=== PATIENT | male | born 1955 | race Caucasian/White ===

== ENCOUNTER 2020-03-23 08:17 | Inpatient (IN) | payer MEDICARE, MEDICAID, SELFPAY ==
[2020-03-23] VITALS (8 sets, daily range): BP systolic 101–141; BP diastolic 65–86; PULSE 77–96; RESP 15–19; TEMP 36.6–37.4; O2SAT 95–98; BMI 30.8
--- NOTE | 2020-03-23 08:23 | ED.GENADULT ---
HPI - General Adult General Chief complaint: General Medical Stated complaint: MUSCLE SPASMS UPPER BODY Time Seen by Provider: 03/23/20 08:22 Source: patient and EMS Mode of arrival: EMS Limitations: no limitations History of Present Illness MD complaint: spasms of chest and UE Onset (ago): hour(s) (2) Location: chest Radiation: non-radiation Severity: moderate Quality: other (spasms) Pain Consistency: constant Relieving factors: none Exacerbating factors: none Associated symptoms: denies other symptoms Treatments prior to arrival: other (tried diazepam without relief, had been on baclofen that worked for a while) Related Data Allergies Allergy/AdvReac Type Severity Reaction Status Date / Time ofloxacin [From FLOXIN] Allergy Intermediate UPSET Verified 03/23/20 08:54 STOMACH dicloxacillin [From DYNAPEN] Allergy Unknown UNKNOWN Verified 03/23/20 08:54 penicillin V Allergy Unknown Abdominal Verified 03/23/20 08:54 Pain Review of Systems Review of Systems: Constitutional : No Weight loss, No Fever, No Chills, No Fatigue, No Malaise ENT/Mouth : No sore throat, No Rhinorrhea Eyes: No Eye Pain, No Swelling, No Redness Cardiovascular : No Chest Pain, No SOB Respiratory : No Cough, No Sputum, No Wheezing Gastrointestinal : No Nausea, No Vomiting, No Diarrhea, No abdominal Pain Genitourinary : No Dysuria, No hematuria Musculoskeletal : No joint pain, positive Myalgias, No Joint Swelling Skin : No Skin Lesions, No rash Neuro : No Weakness, No Numbness, No Dizziness, No Headache Psych : No Anxiety/Panic, No Depression All other systems reviewed and are negative [facility] Past Medical History Medical History Atrial fibrillation Hernia Spasms of the hands or feet Spinal cord injury Surgical History H/O thyroidectomy Social History Social History (Updated 03/23/20 @ 08:25 by Chantel Wilde DO) Alcohol intake: never Smoking Status: Former smoker Smoked in Last 30 Days: No Use of substances other than those prescribed or required for medical reasons: No Advance Directives: No Advance Directives Information Provided: No Physical Exam Vital Signs: Vital Signs: Vital Signs Temp Pulse Resp BP Pulse Ox 03/23/20 14:00 82 16 130/65 96 03/23/20 11:32 84 15 122/86 95 03/23/20 10:28 16 111/84 97 03/23/20 10:15 99.4 F 03/23/20 08:23 98.1 F 86 18 136/83 97 Body Mass Index 30.8 Appearance: Alert. Oriented X3. No acute distress. slightly anxious, spasms of bilateral UE Eyes: Pupils equal, round and reactive to light. ENT: Pharynx normal. Neck: Normal inspection. Neck supple. CVS: Normal heart rate and rhythm. Pulses normal. Respiratory: No respiratory distress. Breath sounds normal. Abdomen: Soft and nontender. Skin: Skin warm and dry. Normal skin color. Normal skin turgor. Extremities: No lower extremity edema. No calf ttp Neuro: Oriented X 3. SCI C5-C6 spasms of UE Course Course Course Narrative: blood work ordered after family discussions, he also has a hernia that doesn't cause pain this is known by Dr. Hurd, I cannot reduce it but given his SCI might not have pain - once labs resulted will touch base with Dr. Hurd, Denzel is feeling much better after IV ativan Reevaluation(s) Reevaluation #1: Dr. Hurd no emergent surgery at this time, did cath him again 400cc urine, given repeat spasms prior to DC I have spoken to Elvia Murillo who will admit patinet Medical Decision Making MDM Narrative Medical decision making narrative: 64 yo male with hx of SCI C5-C6 hx of spasms, reports doing well until 6am today when spasms started took diazepam without relief and unable to catheterize himself, at this time, will obtain basic labs, catheterize him and give IV ativan Lab Data Result diagrams: 03/23/20 10:27 03/23/20 10:27 Labs: Lab Results 03/23/20 03/23/20 03/23/20 Range/Units 08:46 08:46 08:46 WBC 5.7 (4.8-10.8) X10*3/uL RBC 4.61 (4.60-5.80) X10*6/uL Hgb 13.9 L (14.0-18.0) g/dl Hct 42.2 (42-52) % MCV 91.5 (80-98) fL MCH 30.2 (27.0-33.0) pg MCHC 32.9 (31.0-36.0) g/dl RDW 14.7 (11.0-16.0) % Plt Count 187 (160-400) X10*3/uL MPV 10.0 (9.4-12.4) fL Immature Gran % (Auto) 0.4 (0.0-0.4) % Neut % (Auto) 73.0 (45-73) % Lymph % (Auto) 17.5 L (20-40) % [place] % (Auto) 7.8 (2-11) % Eos % (Auto) 0.9 (0-4) % Baso % (Auto) 0.4 (0-2) % Lymph # (Auto) 1.0 L (1.2-4.9) X10*3/uL [place] # (Auto) 0.4 (0.1-1.2) X10*3/uL Eos # (Auto) 0.1 (0.0-0.4) X10*3/uL Baso # (Auto) 0.0 (0.0-0.2) X10*3/uL Abs Immat Gran (auto) 0.02 (0.00-0.03) X10*3/uL Absolute Neuts (auto) 4.2 (2.0-8.3) X10*3/uL Absolute Nucleated RBC 0.000 (0.0-0.012) X10*3/uL Nucleated RBC % (auto) 0.0 (0.0-0.2) /100WBC PT 32.1 H (10.8-13.0) SEC INR 2.7 H (0.9-1.1) APTT 46.1 H (24.1-38.0) SEC Hold Blue Top Sodium 136 (135-145) mmol/L Potassium 4.6 (3.3-5.1) mmol/l Chloride 102 (96-108) mmol/L Carbon Dioxide 27 (22-29) mmol/L Anion Gap 12 (12-20) BUN 18 H (9-16) mg/dL Creatinine 0.76 (0.5-1.4) mg/dL Estim Creat Clear Calc 138.0 Estimated GFR > 60 Random Glucose 105 (60-115) mg/dL Calcium 8.6 (8.4-10.2) mg/dL Magnesium 1.9 (1.6-2.6) mg/dL Total Bilirubin (0.0-1.0) mg/dL Direct Bilirubin (0.0-0.5) mg/dL AST (5-37) U/L ALT (0-40) U/L Alkaline Phosphatase (39-117) U/L Total Protein (6.5-8.0) g/dL Albumin (3.5-5.0) g/dL Lipase 15 (8-78) U/L Urine Color Urine Appearance Urine pH (5.0-8.0) Ur Specific [place] (1.005-1.025) Urine Protein (NEG-TRACE) MG/DL Urine Glucose (UA) (NEG) MG/DL Urine Ketones (NEG) MG/DL Urine Blood (NEG) Urine Nitrite (NEG) Ur Leukocyte Esterase (NEG) Urine RBC (0) /HPF Urine WBC (0-4) /HPF Ur Squamous Epith Cells /LPF Urine Bacteria /LPF 03/23/20 03/23/20 03/23/20 Range/Units 10:27 10:27 10:27 WBC 5.8 (4.8-10.8) X10*3/uL RBC 4.52 L (4.60-5.80) X10*6/uL Hgb 13.7 L (14.0-18.0) g/dl Hct 41.6 L (42-52) % MCV 92.0 (80-98) fL MCH 30.3 (27.0-33.0) pg MCHC 32.9 (31.0-36.0) g/dl RDW 14.6 (11.0-16.0) % Plt Count 178 (160-400) X10*3/uL MPV 9.9 (9.4-12.4) fL Immature Gran % (Auto) 0.5 H (0.0-0.4) % Neut % (Auto) 67.8 (45-73) % Lymph % (Auto) 22.4 (20-40) % [place] % (Auto) 8.0 (2-11) % Eos % (Auto) 1.0 (0-4) % Baso % (Auto) 0.3 (0-2) % Lymph # (Auto) 1.3 (1.2-4.9) X10*3/uL [place] # (Auto) 0.5 (0.1-1.2) X10*3/uL Eos # (Auto) 0.1 (0.0-0.4) X10*3/uL Baso # (Auto) 0.0 (0.0-0.2) X10*3/uL Abs Immat Gran (auto) 0.03 (0.00-0.03) X10*3/uL Absolute Neuts (auto) 3.9 (2.0-8.3) X10*3/uL Absolute Nucleated RBC 0.000 (0.0-0.012) X10*3/uL Nucleated RBC % (auto) 0.0 (0.0-0.2) /100WBC PT (10.8-13.0) SEC INR (0.9-1.1) APTT (24.1-38.0) SEC Hold Blue Top SEE NOTE Sodium (135-145) mmol/L Potassium (3.3-5.1) mmol/l Chloride (96-108) mmol/L Carbon Dioxide (22-29) mmol/L Anion Gap (12-20) BUN (9-16) mg/dL Creatinine (0.5-1.4) mg/dL Estim Creat Clear Calc Estimated GFR Random Glucose (60-115) mg/dL Calcium (8.4-10.2) mg/dL Magnesium (1.6-2.6) mg/dL Total Bilirubin (0.0-1.0) mg/dL Direct Bilirubin (0.0-0.5) mg/dL AST (5-37) U/L ALT (0-40) U/L Alkaline Phosphatase (39-117) U/L Total Protein (6.5-8.0) g/dL Albumin (3.5-5.0) g/dL Lipase (8-78) U/L Urine Color YELLOW Urine Appearance CLEAR Urine pH 5.5 (5.0-8.0) Ur Specific [place] 1.025 (1.005-1.025) Urine Protein 1+ H (NEG-TRACE) MG/DL Urine Glucose (UA) NEG (NEG) MG/DL Urine Ketones NEG (NEG) MG/DL Urine Blood NEG (NEG) Urine Nitrite NEG (NEG) Ur Leukocyte Esterase NEG (NEG) Urine RBC 0-2 (0) /HPF Urine WBC 0-2 (0-4) /HPF Ur Squamous Epith Cells TRACE /LPF Urine Bacteria NONE /LPF 03/23/20 Range/Units 10:27 WBC (4.8-10.8) X10*3/uL RBC (4.60-5.80) X10*6/uL Hgb (14.0-18.0) g/dl Hct (42-52) % MCV (80-98) fL MCH (27.0-33.0) pg MCHC (31.0-36.0) g/dl RDW (11.0-16.0) % Plt Count (160-400) X10*3/uL MPV (9.4-12.4) fL Immature Gran % (Auto) (0.0-0.4) % Neut % (Auto) (45-73) % Lymph % (Auto) (20-40) % [place] % (Auto) (2-11) % Eos % (Auto) (0-4) % Baso % (Auto) (0-2) % Lymph # (Auto) (1.2-4.9) X10*3/uL [place] # (Auto) (0.1-1.2) X10*3/uL Eos # (Auto) (0.0-0.4) X10*3/uL Baso # (Auto) (0.0-0.2) X10*3/uL Abs Immat Gran (auto) (0.00-0.03) X10*3/uL Absolute Neuts (auto) (2.0-8.3) X10*3/uL Absolute Nucleated RBC (0.0-0.012) X10*3/uL Nucleated RBC % (auto) (0.0-0.2) /100WBC PT (10.8-13.0) SEC INR (0.9-1.1) APTT (24.1-38.0) SEC Hold Blue Top Sodium 138 (135-145) mmol/L Potassium 5.0 (3.3-5.1) mmol/l Chloride 102 (96-108) mmol/L Carbon Dioxide 28 (22-29) mmol/L Anion Gap 13 (12-20) BUN 18 H (9-16) mg/dL Creatinine 0.81 (0.5-1.4) mg/dL Estim Creat Clear Calc 129.4 Estimated GFR > 60 Random Glucose 87 (60-115) mg/dL Calcium 8.7 (8.4-10.2) mg/dL Magnesium 2.1 (1.6-2.6) mg/dL Total Bilirubin 0.7 (0.0-1.0) mg/dL Direct Bilirubin 0.3 (0.0-0.5) mg/dL AST 20 (5-37) U/L ALT 18 (0-40) U/L Alkaline Phosphatase 67 (39-117) U/L Total Protein 6.5 (6.5-8.0) g/dL Albumin 4.0 (3.5-5.0) g/dL Lipase 15 (8-78) U/L Urine Color Urine Appearance Urine pH (5.0-8.0) Ur Specific [place] (1.005-1.025) Urine Protein (NEG-TRACE) MG/DL Urine Glucose (UA) (NEG) MG/DL Urine Ketones (NEG) MG/DL Urine Blood (NEG) Urine Nitrite (NEG) Ur Leukocyte Esterase (NEG) Urine RBC (0) /HPF Urine WBC (0-4) /HPF Ur Squamous Epith Cells /LPF Urine Bacteria /LPF Discharge Plan Discharge Clinical Impression: Muscle spasm Patient Disposition: Admitted As Inpatient
[2020-03-23 08:53] LABS: MANUAL DIFF FLAG NO
[2020-03-23] MEDS: LORazepam 2 MG/ML VIAL 1 MG IVPUSH ×2 (08:57→18:19)
[2020-03-23 09:01] LABS: INTERNATIONAL NORM RATIO 2.7 (0.9-1.1); Prothrombin Time 32.1 SEC (10.8-13.0)
[2020-03-23 09:03] LABS: Partial Thromboplastin Time 46.1 SEC (24.1-38.0)
[2020-03-23 09:04] LABS: Basophils Percent Auto 0.4 % (0-2); Eosinophils Absolute Auto 0.1 X10*3/uL (0.0-0.4); Eosinophils Percent Auto 0.9 % (0-4); Hematocrit 42.2 % (42-52); Hemoglobin 13.9 g/dl (14.0-18.0); Imm Gran Abs Auto 0.02 X10*3/uL (0.00-0.03); Imm Gran Pct Auto 0.4 % (0.0-0.4); Lymphocytes Percent Auto 17.5 % (20-40); Mean Corpuscular HGB Conc 32.9 g/dl (31.0-36.0); Mean Corpuscular Hemoglobin 30.2 pg (27.0-33.0); Mean Corpuscular Volume 91.5 fL (80-98); Monocytes Absolute Auto 0.4 X10*3/uL (0.1-1.2); Monocytes Percent Auto 7.8 % (2-11); Neutrophils Absolute Auto 4.2 X10*3/uL (2.0-8.3); Platelet Count 187 X10*3/uL (160-400); Red Blood Count 4.61 X10*6/uL (4.60-5.80); Red Cell Distribution Width 14.7 % (11.0-16.0); White Blood Count 5.7 X10*3/uL (4.8-10.8)
[2020-03-23 09:17] LABS: Anion Gap 12 (12-20); Blood Urea Nitrogen 18 mg/dL (9-16); Calcium 8.6 mg/dL (8.4-10.2); Carbon Dioxide 27 mmol/L (22-29); Chloride 102 mmol/L (96-108); Estimated Glomerular Filt Rate > 60; Glucose Random 105 mg/dL (60-115); Lipase 15 U/L (8-78); Magnesium 1.9 mg/dL (1.6-2.6); Potassium 4.6 mmol/l (3.3-5.1); Sodium 136 mmol/L (135-145)
[2020-03-23] MEDS: 0.9 % Sodium Chloride 500 ML 1000 ML IV (10:23)
[2020-03-23 10:39] LABS: MANUAL DIFF FLAG NO
[2020-03-23] MEDS: LORazepam 2 MG/ML VIAL 0.5 MG IVPUSH ×2 (10:41→13:58)
[2020-03-23 10:49] LABS: Basophils Percent Auto 0.3 % (0-2); Eosinophils Absolute Auto 0.1 X10*3/uL (0.0-0.4); Hematocrit 41.6 % (42-52); Hemoglobin 13.7 g/dl (14.0-18.0); Imm Gran Abs Auto 0.03 X10*3/uL (0.00-0.03); Imm Gran Pct Auto 0.5 % (0.0-0.4); Lymphocytes Absolute Auto 1.3 X10*3/uL (1.2-4.9); Lymphocytes Percent Auto 22.4 % (20-40); Mean Corpuscular HGB Conc 32.9 g/dl (31.0-36.0); Mean Corpuscular Hemoglobin 30.3 pg (27.0-33.0); Mean Platelet Volume 9.9 fL (9.4-12.4); Monocytes Absolute Auto 0.5 X10*3/uL (0.1-1.2); Neutrophils Absolute Auto 3.9 X10*3/uL (2.0-8.3); Neutrophils Percent Auto 67.8 % (45-73); Platelet Count 178 X10*3/uL (160-400); Red Blood Count 4.52 X10*6/uL (4.60-5.80); Red Cell Distribution Width 14.6 % (11.0-16.0); White Blood Count 5.8 X10*3/uL (4.8-10.8)
[2020-03-23 11:06] LABS: Glucose Urine UA NEG (NEG); Leukocyte Esterase Urine NEG (NEG); Nitrite Urine NEG (NEG); PH 5.5 (5.0-8.0); Specific Gravity - Urine 1.025 (1.005-1.025); Urine Blood NEG (NEG); Urine Ketones NEG (NEG); Urine Protein 1+ MG/DL (NEG-TRACE)
[2020-03-23 11:09] LABS: Appearance Urine CLEAR; Color Urine YELLOW
[2020-03-23 11:11] LABS: Alanine Aminotransferase 18 U/L (0-40); Alkaline Phosphatase 67 U/L (39-117); Anion Gap 13 (12-20); Aspartate Amino Transferase 20 U/L (5-37); Bilirubin Direct 0.3 mg/dL (0.0-0.5); Bilirubin Total 0.7 mg/dL (0.0-1.0); Blood Urea Nitrogen 18 mg/dL (9-16); Calcium 8.7 mg/dL (8.4-10.2); Carbon Dioxide 28 mmol/L (22-29); Chloride 102 mmol/L (96-108); Creatinine Clr Calc Pharmacy 129.4; Estimated Glomerular Filt Rate > 60; Glucose Random 87 mg/dL (60-115); Lipase 15 U/L (8-78); Magnesium 2.1 mg/dL (1.6-2.6); Sodium 138 mmol/L (135-145); Total Protein 6.5 g/dL (6.5-8.0)
[2020-03-23 11:25] LABS: RBC Urine 0-2 /HPF (0); Squamous Epithelial Cell Urine TRACE /LPF; WBC Urine 0-2 /HPF (0-4)
--- NOTE | 2020-03-23 14:09 | PC.NURSE ---
pt continues to have intermittent muslce spasms. c/o need to urinate but unable to self-catheterize d/t spasms. catheterized for second time by dr. graff. medicated with 3rd dose iv ativan per emar.
--- NOTE | 2020-03-23 15:04 | P.HPIM_ITS ---
History of Present Illness Date of Service: 03/23/20 <Elvia Murillo NP - Last Filed: 03/24/20 09:28> Chief Complaint: hand spasms <Elvia Murillo NP - Last Filed: 03/24/20 09:28> 64-year-old man with history of 6 C5-C6 paraplegia presents with worsening, continuous spasms. He reports history of body spasms for many years. He normally takes baclofen and diazepam but have not seem to work as well more recently. He does have 2 aides that come into his home to assist in his care as he is wheelchair bound. He self catheterizes throughout the day also. He denied fever, chills, nausea, vomiting, diarrhea, recent cough, recent illness, sick contacts. In the ER his vital signs are stable. All his labs are within acceptable limits. He has no infectious source. Seems to be medications may not be working as well and he is getting more frequent spasms. He was given lorazepam which seemed to help in the ER. Will continue this. Will place patient on observation. <Elvia Murillo NP - Last Filed: 03/24/20 09:28> Review of Systems Review of Systems: Denies any recent fever chills or decrease in appetite respiratory denies any shortness of breath coverage production cardiovascular is adjustment of any PND or edema gastrointestinal denies any dysphagia abdominal pain nausea vomiting or diarrhea genitourinary Frequent catheterizations musculoskeletal frequent spasms neuropsych denies any weakness or seizures all other systems reviewed are negative <Elvia Murillo NP - Last Filed: 03/24/20 09:28> [facility] Medical History: Medical History (Updated 03/23/20 @ 16:46 by Alex Hurd MD) Atrial fibrillation Autonomic dysfunction Hernia Hypothyroidism Irreducible left inguinal hernia Spasms of the hands or feet Spinal cord injury <Elvia Murillo NP - Last Filed: 03/24/20 09:28> Functional capacity: wheelchair bound <Elvia Murillo NP - Last Filed: 03/24/20 09:28> Family History: Family History Sister Diabetes mellitus <Elvia Murillo NP - Last Filed: 03/24/20 09:28> Surgical History: Surgical History H/O hemorrhoidectomy H/O hernia repair H/O thyroidectomy S/P IVC filter S/P tendon repair <Elvia Murillo NP - Last Filed: 03/24/20 09:28> Social History: Social History Household Members: Family Housing: House Do you presently have visiting nurse or other home services: Yes Alcohol intake: never Smoking Status: Former smoker Smoked in Last 30 Days: No Use of substances other than those prescribed or required for medical reasons: No Currently Displaying Signs/Symptoms of Drug Intoxication Withdrawal: No Have you been hit, kicked, punched, or otherwise hurt by someone within the past year? If so, by whom?: No Do you feel safe in your current relationship?: No Is there a partner from a previous relationship who is making you feel unsafe now?: No Are you made to feel afraid or neglected: No Advance Directives: No Advance Directives Information Provided: No Advance Directives on File: No Do you have thoughts of harming others: None Do you have a plan to hurt others: No Plan Recently lost weight without trying: No service: No <Elvia Murillo NP - Last Filed: 03/24/20 09:28> Meds Allergies/Adverse reactions: Allergies Allergy/AdvReac Type Severity Reaction Status Date / Time dicloxacillin [From DYNAPEN] Allergy Unknown UNKNOWN Verified 03/23/20 08:54 ofloxacin [From FLOXIN] AdvReac Intermediate UPSET Verified 03/23/20 15:06 STOMACH penicillin V AdvReac Unknown Abdominal Verified 03/23/20 15:06 Pain <Elvia Murillo NP - Last Filed: 03/24/20 09:28> Home medications: Home Medications Medication Instructions Recorded Confirmed Type ascorbic acid (vitamin C) 500 mg PO BID 03/23/20 03/23/20 History baclofen 20 mg PO BID@16 03/23/20 03/23/20 History baclofen 40 mg PO BEDTIME 03/23/20 03/23/20 History calcitriol 0.25 mcg PO DAILY 03/23/20 03/23/20 History calcium carbonate [Calcium 500] 500 mg PO BID 03/23/20 03/23/20 History diazepam 2 mg PO QID PRN 03/23/20 03/23/20 History docusate sodium [Colace] 200 mg PO DAILY 03/23/20 03/23/20 History fludrocortisone 0.1 mg PO DAILY 03/23/20 03/23/20 History levothyroxine 100 mcg PO DAILY 03/23/20 03/23/20 History metoprolol tartrate 25 mg PO BID 03/23/20 03/23/20 History multivitamin 1 tab PO DAILY 03/23/20 03/23/20 History oxybutynin chloride 5 mg PO TID 03/23/20 03/23/20 History sennosides [senna] 17.2 mg PO BEDTIME 03/23/20 03/23/20 History warfarin 2 mg PO SUMOWEFR@18 03/23/20 03/23/20 History warfarin 3 mg PO TUTHSA@18 03/23/20 03/23/20 History <Elvia Murillo NP - Last Filed: 03/24/20 09:28> Physical Exam Vital Signs and Narrative: Vital Signs: Last Vital Signs Temp 99.4 F 03/23/20 10:15 Pulse 82 03/23/20 14:00 Resp 16 03/23/20 14:00 BP 130/65 03/23/20 14:00 Pulse Ox 96 03/23/20 14:00 Body Mass Index 30.8 <Elvia Murillo NP - Last Filed: 03/24/20 09:28> Appearing in no acute distress head is normocephalic atraumatic eyes pupils are PERRLA sclera is anicteric mouth throat mucous membranes are intact and moist neck is supple no lymphadenopathy, no JVD noted lung sounds are clear to auscultation heart regular rate rhythm, clear S1, S2 positive bowel sounds, abdomen is soft, nontender neuro paraplegia <Elvia Murillo NP - Last Filed: 03/24/20 09:28> Results Labs Labs: Laboratory Tests 03/23/20 03/23/20 03/23/20 08:46 08:46 08:46 WBC 5.7 RBC 4.61 Hgb 13.9 L Hct 42.2 MCV 91.5 MCH 30.2 MCHC 32.9 RDW 14.7 Plt Count 187 MPV 10.0 Immature Gran % (Auto) 0.4 Neut % (Auto) 73.0 Lymph % (Auto) 17.5 L [place] % (Auto) 7.8 Eos % (Auto) 0.9 Baso % (Auto) 0.4 Lymph # (Auto) 1.0 L [place] # (Auto) 0.4 Eos # (Auto) 0.1 Baso # (Auto) 0.0 Abs Immat Gran (auto) 0.02 Absolute Neuts (auto) 4.2 Absolute Nucleated RBC 0.000 Nucleated RBC % (auto) 0.0 PT 32.1 H INR 2.7 H APTT 46.1 H Hold Blue Top Sodium 136 Potassium 4.6 Chloride 102 Carbon Dioxide 27 Anion Gap 12 BUN 18 H Creatinine 0.76 Estim Creat Clear Calc 138.0 Estimated GFR > 60 Random Glucose 105 Calcium 8.6 Magnesium 1.9 Total Bilirubin Direct Bilirubin AST ALT Alkaline Phosphatase Total Protein Albumin Lipase 15 Urine Color Urine Appearance Urine pH Ur Specific [place] Urine Protein Urine Glucose (UA) Urine Ketones Urine Blood Urine Nitrite Ur Leukocyte Esterase Urine RBC Urine WBC Ur Squamous Epith Cells Urine Bacteria 03/23/20 03/23/20 03/23/20 10:27 10:27 10:27 WBC 5.8 RBC 4.52 L Hgb 13.7 L Hct 41.6 L MCV 92.0 MCH 30.3 MCHC 32.9 RDW 14.6 Plt Count 178 MPV 9.9 Immature Gran % (Auto) 0.5 H Neut % (Auto) 67.8 Lymph % (Auto) 22.4 [place] % (Auto) 8.0 Eos % (Auto) 1.0 Baso % (Auto) 0.3 Lymph # (Auto) 1.3 [place] # (Auto) 0.5 Eos # (Auto) 0.1 Baso # (Auto) 0.0 Abs Immat Gran (auto) 0.03 Absolute Neuts (auto) 3.9 Absolute Nucleated RBC 0.000 Nucleated RBC % (auto) 0.0 PT INR APTT Hold Blue Top SEE NOTE Sodium Potassium Chloride Carbon Dioxide Anion Gap BUN Creatinine Estim Creat Clear Calc Estimated GFR Random Glucose Calcium Magnesium Total Bilirubin Direct Bilirubin AST ALT Alkaline Phosphatase Total Protein Albumin Lipase Urine Color YELLOW Urine Appearance CLEAR Urine pH 5.5 Ur Specific [place] 1.025 Urine Protein 1+ H Urine Glucose (UA) NEG Urine Ketones NEG Urine Blood NEG Urine Nitrite NEG Ur Leukocyte Esterase NEG Urine RBC 0-2 Urine WBC 0-2 Ur Squamous Epith Cells TRACE Urine Bacteria NONE 03/23/20 10:27 WBC RBC Hgb Hct MCV MCH MCHC RDW Plt Count MPV Immature Gran % (Auto) Neut % (Auto) Lymph % (Auto) [place] % (Auto) Eos % (Auto) Baso % (Auto) Lymph # (Auto) [place] # (Auto) Eos # (Auto) Baso # (Auto) Abs Immat Gran (auto) Absolute Neuts (auto) Absolute Nucleated RBC Nucleated RBC % (auto) PT INR APTT Hold Blue Top Sodium 138 Potassium 5.0 Chloride 102 Carbon Dioxide 28 Anion Gap 13 BUN 18 H Creatinine 0.81 Estim Creat Clear Calc 129.4 Estimated GFR > 60 Random Glucose 87 Calcium 8.7 Magnesium 2.1 Total Bilirubin 0.7 Direct Bilirubin 0.3 AST 20 ALT 18 Alkaline Phosphatase 67 Total Protein 6.5 Albumin 4.0 Lipase 15 Urine Color Urine Appearance Urine pH Ur Specific [place] Urine Protein Urine Glucose (UA) Urine Ketones Urine Blood Urine Nitrite Ur Leukocyte Esterase Urine RBC Urine WBC Ur Squamous Epith Cells Urine Bacteria <Elvia Murillo NP - Last Filed: 03/24/20 09:28> Assessment and Plan (1) Muscle spasm: Status: Acute <Elvia Murillo NP - Last Filed: 03/24/20 09:28> 64-year-old man admitted with continuous muscle spasms. He has history of this but has been more frequent more recently. He reports that he uses baclofen and diazepam at home however neither has been working. Spasms. History of paraplegia with pretty frequent spasms. Will continue home medications and add lorazepam. He should follow-up with his PCP as outpatient and may consider referral for baclofen pump or other specialty them may help with his frequent spasms. Atrial fibrillation. Stable. Continue Metoprolol and warfarin. PT/INR daily. Normocytic anemia. No signs of bleeding, stable. Follow CBC. Hypothyroidism. Continue levothyroxine. DVT prophylaxis with warfarin. Discussed with Dr. Gonzalez Full code <Elvia Murillo NP - Last Filed: 03/24/20 09:28>
--- NOTE | 2020-03-23 15:34 | PC.NURSE ---
x1 attempt to give report to med surg, no answer.
--- NOTE | 2020-03-23 16:40 | P.CONGS_ITS ---
History of Present Illness Consult details Narrative: 74M referred for a chronically incarcerated hernia. 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 He has a large mass on the left groin for at least 2-3 years now. He says he had a hernia repaired on this a few years ago but ths had recurred. He denies any problem with the hernia. He self catheterizes however, and has a hard time looking for his penis because of his large hernia as he has difficulty seeing the glans penis. He came to the ED today because of severe spasms. He says he usually has this especially below the waist because of his spinal cord injury but this seems to be now poorly controlled. He denies any GI complaints. He says there is nothing new with his hernia. Review of Systems Constitutional: Constitutional: Denies chills, Denies fever(s) and Denies increased appetite Cardiovascular: Cardiovascular: Denies chest pain Respiratory: Respiratory: Denies cough Gastrointestinal: Gastrointestinal: Denies abdominal pain and Denies hematochezia Genitourinary: Comments: self catheterizes because of his spinal cord injury Neurologic: Comments: paraplegic PMFSH Past Medical History Medical History Atrial fibrillation Autonomic dysfunction Hernia Hypothyroidism Spasms of the hands or feet Spinal cord injury Functional capacity: wheelchair bound Family History Family History Sister Diabetes mellitus Surgical History Surgical History H/O hemorrhoidectomy H/O hernia repair H/O thyroidectomy S/P IVC filter S/P tendon repair Social History Social History Do you presently have visiting nurse or other home services: Yes Alcohol intake: never Smoking Status: Former smoker Smoked in Last 30 Days: No Use of substances other than those prescribed or required for medical reasons: No Advance Directives: No Advance Directives Information Provided: No Meds Allergies Allergy/AdvReac Type Severity Reaction Status Date / Time dicloxacillin [From DYNAPEN] Allergy Unknown UNKNOWN Verified 03/23/20 08:54 ofloxacin [From FLOXIN] AdvReac Intermediate UPSET Verified 03/23/20 15:06 STOMACH penicillin V AdvReac Unknown Abdominal Verified 03/23/20 15:06 Pain Home Medications Medication Instructions Recorded Confirmed Type ascorbic acid (vitamin C) 500 mg PO BID 03/23/20 03/23/20 History baclofen 20 mg PO BID@,16 03/23/20 03/23/20 History baclofen 40 mg PO BEDTIME 03/23/20 03/23/20 History calcitriol 0.25 mcg PO DAILY 03/23/20 03/23/20 History calcium carbonate [Calcium 500] 500 mg PO BID 03/23/20 03/23/20 History diazepam 2 mg PO QID PRN 03/23/20 03/23/20 History docusate sodium [Colace] 200 mg PO DAILY 03/23/20 03/23/20 History fludrocortisone 0.1 mg PO DAILY 03/23/20 03/23/20 History levothyroxine 100 mcg PO DAILY 03/23/20 03/23/20 History metoprolol tartrate 25 mg PO BID 03/23/20 03/23/20 History multivitamin 1 tab PO DAILY 03/23/20 03/23/20 History oxybutynin chloride 5 mg PO TID 03/23/20 03/23/20 History sennosides [senna] 17.2 mg PO BEDTIME 03/23/20 03/23/20 History warfarin 2 mg PO SUMOWEFR@18 03/23/20 03/23/20 History warfarin 3 mg PO TUTHSA@18 03/23/20 03/23/20 History Physical Exam Vital Signs: Vital Signs: Vital Signs Temp Pulse Resp BP Pulse Ox 03/23/20 16:36 97.9 F 77 19 101/65 95 03/23/20 14:00 82 16 130/65 96 03/23/20 11:32 84 15 122/86 95 03/23/20 10:28 16 111/84 97 03/23/20 10:15 99.4 F 03/23/20 08:23 98.1 F 86 18 136/83 97 Body Mass Index 30.8 Results Labs Result diagrams: 03/23/20 10:27 03/23/20 10:27 Labs: Abnormal lab results 03/23/20 03/23/20 03/23/20 Range/Units 08:46 08:46 08:46 RBC (4.60-5.80) X10*6/uL Hgb 13.9 L (14.0-18.0) g/dl Hct (42-52) % Immature Gran % (Auto) (0.0-0.4) % Lymph % (Auto) 17.5 L (20-40) % Lymph # (Auto) 1.0 L (1.2-4.9) X10*3/uL PT 32.1 H (10.8-13.0) SEC INR 2.7 H (0.9-1.1) APTT 46.1 H (24.1-38.0) SEC BUN 18 H (9-16) mg/dL Urine Protein (NEG-TRACE) MG/DL 03/23/20 03/23/20 03/23/20 Range/Units 10:27 10:27 10:27 RBC 4.52 L (4.60-5.80) X10*6/uL Hgb 13.7 L (14.0-18.0) g/dl Hct 41.6 L (42-52) % Immature Gran % (Auto) 0.5 H (0.0-0.4) % Lymph % (Auto) (20-40) % Lymph # (Auto) (1.2-4.9) X10*3/uL PT (10.8-13.0) SEC INR (0.9-1.1) APTT (24.1-38.0) SEC BUN 18 H (9-16) mg/dL Urine Protein 1+ H (NEG-TRACE) MG/DL Short CBC 03/23/20 03/23/20 Range/Units 08:46 10:27 WBC 5.7 5.8 (4.8-10.8) X10*3/uL Hgb 13.9 L 13.7 L (14.0-18.0) g/dl Hct 42.2 41.6 L (42-52) % Plt Count 187 178 (160-400) X10*3/uL BMP 03/23/20 03/23/20 08:46 10:27 Sodium 136 138 Potassium 4.6 5.0 Chloride 102 102 Carbon Dioxide 27 28 BUN 18 H 18 H Creatinine 0.76 0.81 Calcium 8.6 8.7 Liver Function 03/23/20 Range/Units 10:27 Total Bilirubin 0.7 (0.0-1.0) mg/dL Direct Bilirubin 0.3 (0.0-0.5) mg/dL AST 20 (5-37) U/L ALT 18 (0-40) U/L Alkaline Phosphatase 67 (39-117) U/L Albumin 4.0 (3.5-5.0) g/dL Urine //20 Range/Units 10:27 Urine Color YELLOW Urine Appearance CLEAR Urine pH 5.5 (5.0-8.0) Ur Specific [place] 1.025 (1.005-1.025) Urine Protein 1+ H (NEG-TRACE) MG/DL Urine Glucose (UA) NEG (NEG) MG/DL All other labs normal. Assessment and Plan (1) Irreducible left inguinal hernia: Status: Chronic This is chronically incarcerated. This is not causing any acute problems at this time. He denies any pain, nausea or vomitting. His exam is very benign, and his main complaint with the hernia is that it impedes visualization of his penis which makes self catheterization more difficult. I explained to him that we can repair this hernia as an outpatient. This may require a longer incision in view of the large size, extending to the scrotum. He says he may be itnerested in doing this in the future. He is being admitted for his generalized spasms. I actually catherized him in the ED without difficulty and emptied about 400 cc of urine.
[2020-03-23] MEDS: 0.9 % Sodium Chloride Flush 3 ML SYRINGE IVFLUSH ×2 (18:19→23:23)
[2020-03-23] MEDS: Warfarin Sodium 1 MG TABLET 2 MG PO (18:38)
[2020-03-23] MEDS: Ascorbic Acid 500 MG TABLET PO (20:53)
[2020-03-23] MEDS: Sennosides 8.6 MG TABLET 17.2 MG PO (20:53)
[2020-03-23] MEDS: Metoprolol Tartrate 25 MG TABLET PO (20:54)
[2020-03-23] MEDS: Baclofen 10 MG TABLET 40 MG PO (20:55)
--- NOTE | 2020-03-23 20:58 | PC.NURSE ---
Patient refused telesiter
[2020-03-24] VITALS (11 sets, daily range): BP systolic 104–165; BP diastolic 61–95; PULSE 72–113; RESP 18–20; TEMP 36.5–37.5; O2SAT 93–97; BMI 30.8
[2020-03-24 07:51] LABS: MANUAL DIFF FLAG NO
[2020-03-24 08:00] LABS: Basophils Percent Auto 0.2 % (0-2); Eosinophils Percent Auto 0.4 % (0-4); Hematocrit 45.1 % (42-52); Hemoglobin 14.7 g/dl (14.0-18.0); Imm Gran Abs Auto 0.04 X10*3/uL (0.00-0.03); Imm Gran Pct Auto 0.5 % (0.0-0.4); Lymphocytes Absolute Auto 1.9 X10*3/uL (1.2-4.9); Mean Corpuscular HGB Conc 32.6 g/dl (31.0-36.0); Mean Corpuscular Hemoglobin 30.3 pg (27.0-33.0); Monocytes Absolute Auto 0.6 X10*3/uL (0.1-1.2); Monocytes Percent Auto 7.7 % (2-11); Neutrophils Absolute Auto 5.5 X10*3/uL (2.0-8.3); Neutrophils Percent Auto 68.2 % (45-73); Platelet Count 200 X10*3/uL (160-400); Red Blood Count 4.85 X10*6/uL (4.60-5.80); Red Cell Distribution Width 14.6 % (11.0-16.0); White Blood Count 8.1 X10*3/uL (4.8-10.8)
[2020-03-24 08:01] LABS: Prothrombin Time 35.5 SEC (10.8-13.0)
[2020-03-24 08:18] LABS: Anion Gap 14 (12-20); Blood Urea Nitrogen 17 mg/dL (9-16); Calcium 8.7 mg/dL (8.4-10.2); Carbon Dioxide 26 mmol/L (22-29); Chloride 103 mmol/L (96-108); Creatinine Clr Calc Pharmacy 95.3; Estimated Glomerular Filt Rate > 60; Glucose Random 105 mg/dL (60-115); Potassium 4.9 mmol/l (3.3-5.1); Sodium 138 mmol/L (135-145)
[2020-03-24] MEDS: Levothyroxine Sodium 100 MCG TABLET PO (09:30)
[2020-03-24] MEDS: calcitrioL 0.25 MCG CAPSULE PO (09:30)
[2020-03-24] MEDS: Docusate Sodium 100 MG CAPSULE 200 MG PO (09:30)
[2020-03-24] MEDS: Metoprolol Tartrate 25 MG TABLET PO ×2 (09:30→21:18)
[2020-03-24] MEDS: Multivitamin TABLET 1 TAB PO (09:30)
[2020-03-24] MEDS: Ascorbic Acid 500 MG TABLET PO ×2 (09:30→21:18)
[2020-03-24] MEDS: Fludrocortisone Acetate 0.1 MG TABLET PO (09:30)
[2020-03-24] MEDS: 0.9 % Sodium Chloride Flush 3 ML SYRINGE IVFLUSH ×3 (09:31→23:32)
[2020-03-24] MEDS: Baclofen 10 MG TABLET 20 MG PO ×2 (09:32→16:07)
--- NOTE | 2020-03-24 11:24 | MHC.CM.PN ---
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
--- NOTE | 2020-03-24 12:24 | HO.PM.IMPN ---
Subjective Subjective Date of Service: 03/24/20 Interval History: Seen in f/u for back pain and spasm. Still c/o some pain Review of Systems back pain that is chronic no fever Physical Exam Vital Signs: Vital Signs: Vital Signs Temp Pulse Resp BP Pulse Ox 03/24/20 11:16 97.7 F 92 19 110/70 93 03/24/20 07:58 98.7 F 104 H 19 165/95 H 93 03/24/20 07:18 98.7 F 104 H 19 165/95 H 93 03/24/20 04:00 98.9 F 96 18 94 03/24/20 00:00 97.8 F 72 20 104/78 94 03/23/20 20:54 96 141/71 H 03/23/20 19:52 98.7 F 96 19 141/71 H 98 03/23/20 16:36 97.9 F 77 19 101/65 95 03/23/20 14:00 82 16 130/65 96 Constitutional Awake and Alert, No apparent distress Neck Supple, No lymphadenopathy Cardiovascular RRR, No M/R/G, S1 S2, No S3 S4, No pedal edema Respiratory Lungs clear, No respiratory distress Gastrointestinal Non tender, Non-distended Skin No rash Neurological Alert & oriented x3, paraplegic Psychological Appropriate affect Objective Data Current Medications Generic Name Dose Route Start Last Admin Trade Name Fausto PRN Reason Stop Dose Admin Acetaminophen 650 mg 03/23/20 16:05 Acetaminophen 325 Mg Tablet PO Q6H PRN Pain, Mild (Pain Scale 1-3) Ascorbic Acid 500 mg 03/23/20 21:00 03/24/20 09:30 Ascorbic Acid 500 Mg Tablet PO 500 mg BID SACHIN Administration Baclofen 20 mg 03/24/20 09:00 03/24/20 09:32 Baclofen 10 Mg Tablet PO 20 mg BID@09,16 SACHIN Administration Baclofen 40 mg 03/23/20 21:00 03/23/20 20:55 Baclofen 10 Mg Tablet PO 40 mg BEDTIME SACHIN Administration Calcitriol 0.25 mcg 03/24/20 09:00 03/24/20 09:30 Calcitriol 0.25 Mcg Capsule PO 0.25 mcg DAILY SACHIN Administration Calcium Carbonate 500 mg 03/23/20 21:00 03/24/20 09:30 Calcium Carbonate 500 Mg Tablet PO 500 mg BID SACHIN Administration Diazepam 2 mg 03/23/20 17:25 Diazepam 2 Mg Tablet PO QID PRN Cramps Docusate Sodium 200 mg 03/24/20 09:00 03/24/20 09:30 Docusate Sodium 100 Mg Capsule PO 200 mg DAILY SACHIN Administration Fludrocortisone Acetate 0.1 mg 03/24/20 09:00 03/24/20 09:30 Fludrocortisone Acetate 0.1 Mg Tablet PO 0.1 mg DAILY SACHIN Administration Levothyroxine Sodium 100 mcg 03/24/20 09:00 03/24/20 09:30 Levothyroxine Sodium 100 Mcg Tablet PO 100 mcg DAILY SACHIN Administration Lorazepam 1 mg 03/23/20 16:05 03/23/20 18:19 Lorazepam 2 Mg/Ml Vial IVPUSH 1 mg Q4H PRN Administration spasms Metoprolol Tartrate 25 mg 03/23/20 21:00 03/24/20 09:30 Metoprolol Tartrate 25 Mg Tablet PO 25 mg BID SACHIN Administration Protocol Multivitamins/Vitamin C 1 tab 03/24/20 09:00 03/24/20 09:30 Multivitamin Tablet PO 1 tab DAILY SACHIN Administration Ondansetron HCl 4 mg 03/23/20 16:05 Ondansetron Hcl 4 Mg/2 Ml Vial IVPUSH Q8H PRN Nausea and Vomiting Oxybutynin Chloride 10 mg 03/24/20 09:00 03/24/20 09:29 Oxybutynin Chloride Er 5 Mg Tab.Er.24 PO 10 mg DAILY SACHIN Administration Pharmacy Consult 1 each 03/23/20 14:58 Consult Rx Perform Med Rec MISCELLANE ONCE PRN Consult order Pharmacy Consult 1 each 03/23/20 16:05 Consult Rx Perform Med Rec MISCELLANE ONCE PRN Consult order Senna 17.2 mg 03/23/20 21:00 03/23/20 20:53 Sennosides 8.6 Mg Tablet PO 17.2 mg BEDTIME SACHIN Administration Sodium Chloride 3 ml 03/23/20 16:05 03/24/20 09:31 0.9 % Sodium Chloride Flush 3 Ml Syringe IVFLUSH 3 ml QSHIFT SACHIN Administration Warfarin Sodium 3 mg 03/24/20 18:00 Warfarin Sodium 3 Mg Tablet PO [email or web address] SACHIN Warfarin Sodium 2 mg 03/23/20 18:00 03/23/20 18:38 Warfarin Sodium 1 Mg Tablet PO 2 mg [email or web address] [facility] Administration Labs CBC & Chem 7: 03/24/20 07:44 03/24/20 07:44 Assessment and Plan (1) Muscle spasm: Status: Acute Assessment and Plan: 64-year-old man admitted with continuous muscle spasms. He has history of this but has been more frequent more recently. He reports that he uses baclofen and diazepam at home however neither has been working. Spasms. History of paraplegia with pretty frequent spasms. Will continue home medications and lorazepam. He should follow-up with his PCP as outpatient and may consider referral for baclofen pump or other specialty them may help with his frequent spasms. Atrial fibrillation. Stable. Continue Metoprolol and warfarin. PT/INR daily. Normocytic anemia. No signs of bleeding, stable. Follow CBC. Hypothyroidism. Continue levothyroxine. DVT prophylaxis with warfarin. Discussed with Dr. Gonzalez Full code
[2020-03-24] MEDS: 0.9 % Sodium Chloride 1,000 ML 100 ML IVCONT ×2 (12:30→23:31)
[2020-03-24 13:56] LABS: INTERNATIONAL NORM RATIO 2.9 (0.9-1.1); Prothrombin Time 34.5 SEC (10.8-13.0)
[2020-03-24] MEDS: Acetaminophen 325 MG TABLET 650 MG PO (16:07)
[2020-03-24] MEDS: Warfarin Sodium 3 MG TABLET PO (17:20)
[2020-03-24] MEDS: LORazepam 2 MG/ML VIAL 1 MG IVPUSH (17:33)
--- NOTE | 2020-03-24 19:48 | ECG_ITS ---
Test Reason : RAPID HEART RATE Blood Pressure : / mmHG Vent. Rate : 146 BPM Atrial Rate : 197 BPM P-R Int : 000 ms QRS Dur : 090 ms QT Int : 258 ms P-R-T Axes : 000 106 -35 degrees QTc Int : 402 ms Atrial fibrillation with rapid ventricular response with premature ventricular or aberrantly conducted complexes Rightward axis ST & T wave abnormality, consider inferior ischemia Abnormal ECG When compared with ECG of 22-DEC-2018 08:59, Vent. rate has increased BY 65 BPM QRS axis Shifted right Referred By: Azeem Newton Electronically Signed By:HARRY EVERETT MD
--- NOTE | 2020-03-24 19:54 | ECG_ITS ---
Test Reason : CHANGE IN RHYTHM Blood Pressure : / mmHG Vent. Rate : 099 BPM Atrial Rate : 288 BPM P-R Int : 000 ms QRS Dur : 094 ms QT Int : 348 ms P-R-T Axes : 000 061 -06 degrees QTc Int : 446 ms Atrial fibrillation Nonspecific ST and T wave abnormality Inferior leads Abnormal ECG When compared with ECG of 24-MAR-2020 19:48, QRS axis Shifted left Referred By: Azeem Newton Electronically Signed By:HARRY EVERETT MD
--- NOTE | 2020-03-24 20:03 | PM.EVENT ---
Event Note Event Note: Notified patient is found with an elevated HR. Patient found on monitor to have Afib with RVR. Patient has hx of afib on coumadin. EKG shows HR of ~146. BP now of 190/100. One dose of lopressor 10 mg IV push given and now HR is down to 105-110. Will repeat BP, environmental monitoring specialist and transfer to [facility] [place] close monitoring.
[2020-03-24] MEDS: Metoprolol Tartrate 5 MG/5 ML VIAL IVPUSH (20:46)
--- NOTE | 2020-03-24 20:50 | PC.NURSE ---
Addendum entered by Silvana Peter RN 03/24/20 21:23: Patients HR continues to be in AFIB between 100's-140's. Dr. Pelayo aware. Scheduled dose of 25 mg PO metoprolol administered. Patient continues to have no reports of dizziness, chest pain, palpitations, or SOB. Safety measures in place. Will continue to monitor. Addendum entered by Silvana Peter RN 03/24/20 20:54: HR noted to be back in afib RVR 110's to 190's. This RN on phone with Dr. Pelayo. New orders for 5 mg IV Metoprolol to be administered. Original Note: DECAL MAKER called on S3 for high HR with SOB. EKG showing Afib w/ RVR. Patient transfered to [facility] tele w/ ICU Nurse and Nursing production shift supervisor. Patient A+Ox4. Patient has no complaints of palpitations or chest pain. No signs of SOB. Vital signs stable on upon transfer. BP 109/67, Temp: 98.3, HR AFIB 90's, O2 SAT 97% on [address] Pelayo made aware.
[2020-03-24] MEDS: Sennosides 8.6 MG TABLET 17.2 MG PO (21:18)
[2020-03-24] MEDS: Baclofen 10 MG TABLET 40 MG PO (21:19)
[2020-03-24] MEDS: diazePAM 2 MG TABLET PO (21:20)
[2020-03-25] VITALS (9 sets, daily range): BP systolic 88–141; BP diastolic 32–92; PULSE 56–85; RESP 18–94; TEMP 36.3–37.4; O2SAT 95–97
--- NOTE | 2020-03-25 00:33 | PC.NURSE ---
Afib 70's-170's on monitor. sbp 110's. patient denies cp, shortness of breath, palpitations, or dizzyness. md updated. nursing to call if hr sustains >110's.
--- NOTE | 2020-03-25 01:14 | PC.NURSE ---
03/24/201949 P-HEART RATE 140'S-150'S 02 SATS 90 02 AT 2L APPLIED. I-RAPID RESPONSE CALLED,STAT EKG ORDERED.PT MEDICATED WITH LOPRESSOR 5MG IV X 2 DOSES AT 1958 AND 2003.[place] [facility]
[2020-03-25] MEDS: LORazepam 2 MG/ML VIAL 1 MG IVPUSH ×2 (08:12→15:30)
[2020-03-25] MEDS: Multivitamin TABLET 1 TAB PO (09:27)
[2020-03-25] MEDS: calcitrioL 0.25 MCG CAPSULE PO (09:28)
[2020-03-25] MEDS: Fludrocortisone Acetate 0.1 MG TABLET PO (09:28)
[2020-03-25] MEDS: Metoprolol Tartrate 25 MG TABLET PO ×3 (09:28→21:41)
[2020-03-25] MEDS: Ascorbic Acid 500 MG TABLET PO ×2 (09:28→21:31)
[2020-03-25] MEDS: 0.9 % Sodium Chloride 1,000 ML 100 ML IVCONT (09:28)
[2020-03-25] MEDS: Levothyroxine Sodium 100 MCG TABLET PO (09:28)
[2020-03-25] MEDS: Docusate Sodium 100 MG CAPSULE 200 MG PO (09:29)
[2020-03-25] MEDS: Baclofen 10 MG TABLET 20 MG PO ×2 (09:33→15:29)
[2020-03-25] MEDS: Furosemide 20 MG/2 ML VIAL IVPUSH (11:11)
--- NOTE | 2020-03-25 12:52 | MHC.CM.PN ---
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 CM will continue to follow.
--- NOTE | 2020-03-25 15:14 | HO.PM.IMPN ---
Subjective Subjective Date of Service: 03/25/20 Interval History: the patient was seen and evaluated this morning Laying in bed, feels pain from spasms Reported feeling mildly winded. Denies any fever, chills or shortness of breath No reported other overnight events. Physical Exam Vital Signs: Vital Signs: Vital Signs Temp Pulse Resp BP Pulse Ox 03/25/20 12:00 98.7 F 71 18 100/60 95 03/25/20 11:30 98.7 F 71 100/60 95 03/25/20 07:24 97.4 F 85 19 141/70 H 97 03/25/20 04:00 98.6 F 76 20 110/71 97 03/24/20 23:32 98.0 F 87 20 105/61 96 03/24/20 21:18 113 H 03/24/20 20:46 107 H 109/76 03/24/20 20:00 98.3 F 90 109/67 97 03/24/20 17:16 98.7 F 03/24/20 15:48 99.5 F 90 18 125/80 94 Body Mass Index 30.8 Constitutional : Alert, oriented, in mild distress from painful spasms Neck : Normal inspection, Supple Cardiovascular : Irregular irregular heart rhythm, S1 S2, no lower extremity edema Respiratory : Good bilateral air entry, no crackles, wheezes or rhonchi Gastrointestinal: soft, lax, Normal bowel sounds, Non tender Skin : Warm/Dry, No rash Neurological : Alert & oriented x3, lower body paraplegia Objective Data Current Medications Generic Name Dose Route Start Last Admin Trade Name Fausto PRN Reason Stop Dose Admin Acetaminophen 650 mg 03/23/20 16:05 03/24/20 16:07 Acetaminophen 325 Mg Tablet PO 650 mg Q6H PRN Administration Pain, Mild (Pain Scale 1-3) Acetaminophen 650 mg 03/25/20 15:10 Acetaminophen 325 Mg Tablet PO TID SACHIN Ascorbic Acid 500 mg 03/23/20 21:00 03/25/20 09:28 Ascorbic Acid 500 Mg Tablet PO 500 mg BID SACHIN Administration Baclofen 20 mg 03/24/20 09:00 03/25/20 09:33 Baclofen 10 Mg Tablet PO 20 mg BID@09,16 SACHIN Administration Baclofen 40 mg 03/23/20 21:00 03/24/20 21:19 Baclofen 10 Mg Tablet PO 40 mg BEDTIME SACHIN Administration Calcitriol 0.25 mcg 10/20/20 09:00 03/25/20 09:28 Calcitriol 0.25 Mcg Capsule PO 0.25 mcg DAILY SACHIN Administration Calcium Carbonate 500 mg 03/23/20 21:00 03/25/20 09:27 Calcium Carbonate 500 Mg Tablet PO 500 mg BID SACHIN Administration Diazepam 1 mg 03/25/20 17:00 Diazepam 2 Mg Tablet PO QID SACHIN Docusate Sodium 200 mg 03/24/20 09:00 03/25/20 09:29 Docusate Sodium 100 Mg Capsule PO 200 mg DAILY SACHIN Administration Fludrocortisone Acetate 0.1 mg 03/24/20 09:00 03/25/20 09:28 Fludrocortisone Acetate 0.1 Mg Tablet PO 0.1 mg DAILY SACHIN Administration Levothyroxine Sodium 100 mcg 03/24/20 09:00 03/25/20 09:28 Levothyroxine Sodium 100 Mcg Tablet PO 100 mcg DAILY SACHIN Administration Lorazepam 1 mg 03/23/20 16:05 03/25/20 08:12 Lorazepam 2 Mg/Ml Vial IVPUSH 1 mg Q4H PRN Administration spasms Metoprolol Tartrate 25 mg 03/25/20 13:00 03/25/20 13:03 Metoprolol Tartrate 25 Mg Tablet PO 25 mg QID SACHIN Administration Protocol Multivitamins/Vitamin C 1 tab 03/24/20 09:00 03/25/20 09:27 Multivitamin Tablet PO 1 tab DAILY SACHIN Administration Ondansetron HCl 4 mg 03/23/20 16:05 Ondansetron Hcl 4 Mg/2 Ml Vial IVPUSH Q8H PRN Nausea and Vomiting Oxybutynin Chloride 10 mg 03/24/20 09:00 03/25/20 09:28 Oxybutynin Chloride Er 5 Mg Tab.Er.24 PO 10 mg DAILY SACHIN Administration Pharmacy Consult 1 each 03/23/20 14:58 Consult Rx Perform Med Rec MISCELLANE ONCE PRN Consult order Pharmacy Consult 1 each 03/23/20 16:05 Consult Rx Perform Med Rec MISCELLANE ONCE PRN Consult order Senna 17.2 mg 03/23/20 21:00 03/24/20 21:18 Sennosides 8.6 Mg Tablet PO 17.2 mg BEDTIME SACHIN Administration Sodium Chloride 3 ml 03/23/20 16:05 03/25/20 08:15 0.9 % Sodium Chloride Flush 3 Ml Syringe IVFLUSH Not Given QSHIFT [facility] Warfarin Sodium 3 mg 03/24/20 18:00 03/24/20 17:20 Warfarin Sodium 3 Mg Tablet PO 3 mg [email or web address] [facility] Administration Warfarin Sodium 2 mg 03/23/20 18:00 03/23/20 18:38 Warfarin Sodium 1 Mg Tablet PO 2 mg [email or web address] [facility] Administration Labs CBC & Chem 7: 03/24/20 07:44 03/24/20 07:44 Assessment and Plan (1) Atrial fibrillation with rapid ventricular response: Status: Acute (2) Irreducible left inguinal hernia: Status: Chronic (3) Muscle spasm: Status: Acute Assessment and Plan: 64-year-old man admitted with PMH of AFib, spinal injury with paraplegia and continuous muscle spasms. He reports that he uses baclofen and diazepam at home with less efficacy. Spasms. History of paraplegia with frequent spasms. Will continue baclofen and diazepam ATC As needed lorazepam. Straight cathing He should follow-up with his PCP as outpatient and may consider referral for pain management may help with his frequent spasms. Atrial fibrillation with rapid ventricular response Increase Metoprolol to 25 mg q.i.d. Heart rate evaluated on tele between 120 to 140s IV Cardizem for now To give IV Lasix for fluid overload warfarin. PT/INR daily. Irreducible left hernia Chronic Evaluated by surgery, for outpatient follow-up Normocytic anemia. No signs of bleeding, stable. Follow CBC. Hypothyroidism. Continue levothyroxine. DVT prophylaxis with warfarin. Discussed with Dr. Gonzalez Full code
[2020-03-25] MEDS: 0.9 % Sodium Chloride Flush 3 ML SYRINGE IVFLUSH (15:30)
[2020-03-25] MEDS: dilTIAZem HCL 50 MG/10 ML VIAL IVPUSH (15:30)
[2020-03-25] MEDS: diazePAM 2 MG TABLET 1 MG PO ×2 (16:21→21:31)
[2020-03-25 16:30] LABS: INTERNATIONAL NORM RATIO 2.9 (0.9-1.1); Prothrombin Time 34.9 SEC (10.8-13.0)
--- NOTE | 2020-03-25 18:02 | PC.NURSE ---
LASIX 20MG & METOPROLOL 25MG HELD D/T LOW BP OF 88/60, MD AWARE. PT/INR 34.9 & 2.9. COUMADIN HELD PER .
[2020-03-25] MEDS: Sennosides 8.6 MG TABLET 17.2 MG PO (21:30)
[2020-03-25] MEDS: Acetaminophen 325 MG TABLET 650 MG PO (21:31)
[2020-03-25] MEDS: Baclofen 10 MG TABLET 40 MG PO (21:33)
[2020-03-26] VITALS (11 sets, daily range): BP systolic 92–180; BP diastolic 54–92; PULSE 54–104; RESP 16–20; TEMP 36.4–37.2; O2SAT 95–97
[2020-03-26] MEDS: 0.9 % Sodium Chloride Flush 3 ML SYRINGE IVFLUSH ×3 (01:19→16:43)
[2020-03-26 06:21] LABS: MANUAL DIFF FLAG NO
[2020-03-26 06:33] LABS: Basophils Percent Auto 0.3 % (0-2); Eosinophils Absolute Auto 0.2 X10*3/uL (0.0-0.4); Eosinophils Percent Auto 1.8 % (0-4); Hematocrit 44.1 % (42-52); Hemoglobin 14.6 g/dl (14.0-18.0); Imm Gran Abs Auto 0.04 X10*3/uL (0.00-0.03); Imm Gran Pct Auto 0.4 % (0.0-0.4); Lymphocytes Absolute Auto 2.6 X10*3/uL (1.2-4.9); Lymphocytes Percent Auto 28.9 % (20-40); Mean Corpuscular HGB Conc 33.1 g/dl (31.0-36.0); Mean Corpuscular Hemoglobin 29.9 pg (27.0-33.0); Mean Corpuscular Volume 90.2 fL (80-98); Mean Platelet Volume 10.1 fL (9.4-12.4); Monocytes Absolute Auto 0.7 X10*3/uL (0.1-1.2); Monocytes Percent Auto 8.1 % (2-11); Neutrophils Absolute Auto 5.5 X10*3/uL (2.0-8.3); Neutrophils Percent Auto 60.5 % (45-73); Platelet Count 164 X10*3/uL (160-400); Red Blood Count 4.89 X10*6/uL (4.60-5.80); Red Cell Distribution Width 14.3 % (11.0-16.0); White Blood Count 9.1 X10*3/uL (4.8-10.8)
[2020-03-26 06:55] LABS: INTERNATIONAL NORM RATIO 2.9 (0.9-1.1); Prothrombin Time 34.9 SEC (10.8-13.0)
[2020-03-26 06:58] LABS: Anion Gap 16 (12-20); Blood Urea Nitrogen 15 mg/dL (9-16); Calcium 8.4 mg/dL (8.4-10.2); Carbon Dioxide 24 mmol/L (22-29); Chloride 96 mmol/L (96-108); Creatinine Clr Calc Pharmacy 139.8; Estimated Glomerular Filt Rate > 60; Glucose Random 91 mg/dL (60-115); Potassium 4.6 mmol/l (3.3-5.1); Sodium 131 mmol/L (135-145)
[2020-03-26 06:59] LABS: B Type Natriuretic Peptide 166 pg/mL (<100)
[2020-03-26] MEDS: Levothyroxine Sodium 100 MCG TABLET PO (08:21)
[2020-03-26] MEDS: Fludrocortisone Acetate 0.1 MG TABLET PO (08:22)
[2020-03-26] MEDS: Ascorbic Acid 500 MG TABLET PO ×2 (08:22→21:13)
[2020-03-26] MEDS: Docusate Sodium 100 MG CAPSULE 200 MG PO (08:22)
[2020-03-26] MEDS: calcitrioL 0.25 MCG CAPSULE PO (08:22)
[2020-03-26] MEDS: Multivitamin TABLET 1 TAB PO (08:22)
[2020-03-26] MEDS: Acetaminophen 325 MG TABLET 650 MG PO ×3 (08:22→21:14)
[2020-03-26] MEDS: Metoprolol Tartrate 25 MG TABLET PO ×3 (08:23→16:24)
[2020-03-26] MEDS: Baclofen 10 MG TABLET 20 MG PO ×2 (08:24→16:41)
[2020-03-26] MEDS: diazePAM 2 MG TABLET 1 MG PO ×4 (08:25→21:13)
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
[2020-03-26] MEDS: Furosemide 20 MG/2 ML VIAL 10 MG IVPUSH (16:27)
[2020-03-26] MEDS: LORazepam 2 MG/ML VIAL 1 MG IVPUSH ×2 (16:27→21:27)
[2020-03-26] MEDS: Warfarin Sodium 3 MG TABLET PO (16:41)
[2020-03-26] MEDS: Sennosides 8.6 MG TABLET 17.2 MG PO (21:13)
[2020-03-26] MEDS: Baclofen 10 MG TABLET 40 MG PO (21:14)
[2020-03-27] VITALS (11 sets, daily range): BP systolic 99–188; BP diastolic 64–117; PULSE 76–132; RESP 18–19; TEMP 36.1–36.9; O2SAT 94–97
[2020-03-27] MEDS: 0.9 % Sodium Chloride Flush 3 ML SYRINGE IVFLUSH ×4 (00:18→23:44)
[2020-03-27] MEDS: Metoprolol Tartrate 5 MG/5 ML VIAL 2.5 MG IVPUSH (04:16)
--- NOTE | 2020-03-27 05:37 | PC.NURSE ---
pt had low bp of 92/54 at 2100 med pass. 4th dose of 25 mg po metoprolol held at this time. blood pressures stable but fluctuated throughout night and patient had episode of elevated HR in 130s and had multiple episodes of 3 and 4 beats of ectopy. md aware. 2.5mg iv lopressor given with good effect. still afib w hr in 90s.
[2020-03-27 06:16] LABS: MANUAL DIFF FLAG NO
[2020-03-27 06:29] LABS: Basophils Percent Auto 0.4 % (0-2); Eosinophils Absolute Auto 0.1 X10*3/uL (0.0-0.4); Eosinophils Percent Auto 1.2 % (0-4); Hematocrit 44.6 % (42-52); Hemoglobin 15.4 g/dl (14.0-18.0); Imm Gran Abs Auto 0.05 X10*3/uL (0.00-0.03); Imm Gran Pct Auto 0.5 % (0.0-0.4); Lymphocytes Absolute Auto 1.7 X10*3/uL (1.2-4.9); Lymphocytes Percent Auto 15.2 % (20-40); Mean Corpuscular HGB Conc 34.5 g/dl (31.0-36.0); Mean Corpuscular Hemoglobin 30.6 pg (27.0-33.0); Mean Corpuscular Volume 88.5 fL (80-98); Mean Platelet Volume 10.2 fL (9.4-12.4); Monocytes Absolute Auto 0.8 X10*3/uL (0.1-1.2); Monocytes Percent Auto 7.6 % (2-11); Neutrophils Absolute Auto 8.3 X10*3/uL (2.0-8.3); Neutrophils Percent Auto 75.1 % (45-73); Platelet Count 187 X10*3/uL (160-400); Red Blood Count 5.04 X10*6/uL (4.60-5.80); Red Cell Distribution Width 14.1 % (11.0-16.0)
[2020-03-27 06:44] LABS: INTERNATIONAL NORM RATIO 2.9 (0.9-1.1); Prothrombin Time 35.4 SEC (10.8-13.0)
[2020-03-27 06:58] LABS: Anion Gap 16 (12-20); Blood Urea Nitrogen 17 mg/dL (9-16); Calcium 8.5 mg/dL (8.4-10.2); Carbon Dioxide 25 mmol/L (22-29); Chloride 95 mmol/L (96-108); Estimated Glomerular Filt Rate > 60; Glucose Random 85 mg/dL (60-115); Potassium 4.8 mmol/l (3.3-5.1); Sodium 131 mmol/L (135-145)
[2020-03-27] MEDS: Docusate Sodium 100 MG CAPSULE 200 MG PO (08:23)
[2020-03-27] MEDS: Fludrocortisone Acetate 0.1 MG TABLET PO (08:23)
[2020-03-27] MEDS: calcitrioL 0.25 MCG CAPSULE PO (08:23)
[2020-03-27] MEDS: diazePAM 2 MG TABLET 1 MG PO (08:23)
[2020-03-27] MEDS: Levothyroxine Sodium 100 MCG TABLET PO (08:23)
[2020-03-27] MEDS: Metoprolol Tartrate 25 MG TABLET PO ×2 (08:24→10:05)
[2020-03-27] MEDS: Acetaminophen 325 MG TABLET 650 MG PO ×3 (08:24→20:28)
[2020-03-27] MEDS: Multivitamin TABLET 1 TAB PO (08:24)
[2020-03-27] MEDS: Ascorbic Acid 500 MG TABLET PO ×2 (08:24→20:29)
[2020-03-27] MEDS: Baclofen 10 MG TABLET 20 MG PO ×2 (10:04→16:18)
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
--- NOTE | 2020-03-27 13:04 | PC.NURSE ---
Pt alert and oriented x 3 this morning upon initial assessment. This RN went back into pts room to medicate @ 0900, pt medicated, swallowed pills without difficulty then became extremely drowsy/ only abusable to painful stimuli after a long period of sternal rubbing. Dr grewal made aware, per md po valium was changed from PRN to BID and this was probably the cause. Orders changed back to PRN, pt vss, slightly hypostensive sbp 99. pt Sleeping in bed, maintaining own airway without difficulty. Pt has periods of being very alert then drowsy. Md at bedside for eval. Plan to keep pt over night for further monitoring prior to dc.
--- NOTE | 2020-03-27 15:41 | HO.PM.IMPN ---
Subjective Subjective Interval History: the patient was seen and evaluated this morning and in the afternoon Laying in bed, feels pain from spasms looks more sleepy and confused Atrial fibrillation with RVR Denies any fever, chills or shortness of breath No reported other overnight events. Physical Exam Vital Signs: Vital Signs: Vital Signs Temp Pulse Resp BP Pulse Ox 03/27/20 15:19 97.4 F 110 H 18 188/95 H 95 03/27/20 12:00 19 03/27/20 10:05 132 H 154/86 H 03/27/20 08:24 132 H 154/86 H 03/27/20 08:00 89 99/69 03/27/20 04:16 132 H 154/86 H 03/27/20 03:20 98.5 F 88 18 110/82 94 03/27/20 00:43 80 144/64 H 03/26/20 23:53 97.5 F 71 18 180/92 H 96 03/26/20 21:16 92/54 L 03/26/20 20:00 98.4 F 63 18 92/54 L 97 03/26/20 16:24 96 110/65 03/26/20 16:00 97.5 F 78 18 110/65 97 Body Mass Index 30.8 Constitutional : Alert, oriented to place but not time, in mild distress from painful spasms Neck : Normal inspection, Supple Cardiovascular : Irregular irregular heart rhythm, S1 S2, no lower extremity edema Respiratory : Good bilateral air entry, no crackles, wheezes or rhonchi Gastrointestinal: soft, lax, Normal bowel sounds, Non tender Skin : Warm/Dry, No rash Neurological : Alert & oriented x2, mildly confused, lower body paraplegia Objective Data Current Medications Generic Name Dose Route Start Last Admin Trade Name Freq PRN Reason Stop Dose Admin Acetaminophen 650 mg 03/23/20 16:05 03/24/20 16:07 Acetaminophen 325 Mg Tablet PO 650 mg Q6H PRN Administration Pain, Mild (Pain Scale 1-3) Acetaminophen 650 mg 03/25/20 15:10 03/27/20 08:24 Acetaminophen 325 Mg Tablet PO 650 mg TID SACHIN Administration Ascorbic Acid 500 mg 03/23/20 21:00 03/27/20 08:24 Ascorbic Acid 500 Mg Tablet PO 500 mg BID SACHIN Administration Baclofen 20 mg 03/24/20 09:00 03/27/20 10:04 Baclofen 10 Mg Tablet PO 20 mg BID@09,16 SACHIN Administration Baclofen 40 mg 03/23/20 21:00 03/26/20 21:14 Baclofen 10 Mg Tablet PO 40 mg BEDTIME SACHIN Administration Calcitriol 0.25 mcg 03/24/20 09:00 03/27/20 08:23 Calcitriol 0.25 Mcg Capsule PO 0.25 mcg DAILY SACHIN Administration Calcium Carbonate 500 mg 03/23/20 21:00 03/27/20 08:24 Calcium Carbonate 500 Mg Tablet PO 500 mg BID SACHIN Administration Diazepam 1 mg 03/27/20 11:32 Diazepam 2 Mg Tablet PO QID PRN spasms Docusate Sodium 200 mg 03/24/20 09:00 03/27/20 08:23 Docusate Sodium 100 Mg Capsule PO 200 mg DAILY SACHIN Administration Fludrocortisone Acetate 0.1 mg 03/24/20 09:00 03/27/20 08:23 Fludrocortisone Acetate 0.1 Mg Tablet PO 0.1 mg DAILY SACHIN Administration Levothyroxine Sodium 100 mcg 03/24/20 09:00 03/27/20 08:23 Levothyroxine Sodium 100 Mcg Tablet PO 100 mcg DAILY SACHIN Administration Metoprolol Tartrate 50 mg 03/27/20 21:00 Metoprolol Tartrate 25 Mg Tablet PO BID [facility] Protocol Multivitamins/Vitamin C 1 tab 03/24/20 09:00 03/27/20 08:24 Multivitamin Tablet PO 1 tab DAILY SACHIN Administration Ondansetron HCl 4 mg 03/23/20 16:05 Ondansetron Hcl 4 Mg/2 Ml Vial IVPUSH Q8H PRN Nausea and Vomiting Oxybutynin Chloride 10 mg 03/24/20 09:00 03/27/20 08:23 Oxybutynin Chloride Er 5 Mg Tab.Er.24 PO 10 mg DAILY SACHIN Administration Pharmacy Consult 1 each 03/23/20 14:58 Consult Rx Perform Med Rec MISCELLANE ONCE PRN Consult order Pharmacy Consult 1 each 03/23/20 16:05 Consult Rx Perform Med Rec MISCELLANE ONCE PRN Consult order Senna 17.2 mg 03/23/20 21:00 03/26/20 21:13 Sennosides 8.6 Mg Tablet PO 17.2 mg BEDTIME SACHIN Administration Sodium Chloride 3 ml 03/23/20 16:05 03/27/20 08:29 0.9 % Sodium Chloride Flush 3 Ml Syringe IVFLUSH 3 ml QSHIFT [facility] Administration Warfarin Sodium 3 mg 03/24/20 18:00 03/26/20 16:41 Warfarin Sodium 3 Mg Tablet PO 3 mg [email or web address] [facility] Administration Warfarin Sodium 2 mg 03/23/20 18:00 03/25/20 16:43 Warfarin Sodium 1 Mg Tablet PO Not Given [email or web address] [facility] Labs CBC & Chem 7: 03/27/20 05:35 03/27/20 05:34 Assessment and Plan (1) Atrial fibrillation with rapid ventricular response: Status: Acute (2) Irreducible left inguinal hernia: Status: Chronic (3) Muscle spasm: Status: Acute Assessment and Plan: 64-year-old man admitted with PMH of AFib, spinal injury with paraplegia and continuous muscle spasms. He reports that he uses baclofen and diazepam at home with less efficacy. Spasms. History of paraplegia with frequent spasms. Will continue baclofen Change diazepam to p.r.n. He should follow-up with his PCP as outpatient and may consider referral for pain management may help with his frequent spasms. Atrial fibrillation with rapid ventricular response Increase Metoprolol to 50 mg b.i.d. Heart rate evaluated on tele between 120 to 140s IV Cardizem if needed received IV Lasix for fluid overload warfarin. PT/INR daily. Confusion Likely secondary to medications like diazepam and baclofen Change diazepam to p.r.n. Discontinue IV Ativan urinary retention History of self-catheterization [place] catheter placed, patient would like to keep it in at time of discharge Discussed possible risk, patient refused to remove the catheter and will follow-up with PCP for recurrent changes Irreducible left hernia Chronic Evaluated by surgery, for outpatient follow-up Normocytic anemia. No signs of bleeding, stable. Follow CBC. Hypothyroidism. Continue levothyroxine. : Dispo: turns that patient lives alone, with his confusion and physical deconditioning he is high risk to be discharged home. Will look for other resources, home with VNA or placement DVT prophylaxis warfarin.
[2020-03-27] MEDS: Warfarin Sodium 1 MG TABLET 2 MG PO (17:24)
[2020-03-27 18:45] LABS: SARS COV2 PCR INHOUSE NEGATIVE (Negative)
[2020-03-27] MEDS: Sennosides 8.6 MG TABLET 17.2 MG PO (20:29)
[2020-03-27] MEDS: Metoprolol Tartrate 25 MG TABLET 50 MG PO (20:30)
[2020-03-27] MEDS: Baclofen 10 MG TABLET 40 MG PO (20:31)
[2020-03-28] VITALS (8 sets, daily range): BP systolic 85–190; BP diastolic 55–100; PULSE 71–117; RESP 18–20; TEMP 36.3–37.4; O2SAT 91–98
[2020-03-28 06:53] LABS: MANUAL DIFF FLAG NO
[2020-03-28 07:16] LABS: Basophils Percent Auto 0.4 % (0-2); Eosinophils Absolute Auto 0.1 X10*3/uL (0.0-0.4); Eosinophils Percent Auto 0.7 % (0-4); Hematocrit 41.1 % (42-52); Hemoglobin 13.8 g/dl (14.0-18.0); Imm Gran Abs Auto 0.05 X10*3/uL (0.00-0.03); Imm Gran Pct Auto 0.6 % (0.0-0.4); Lymphocytes Absolute Auto 1.7 X10*3/uL (1.2-4.9); Lymphocytes Percent Auto 20.3 % (20-40); Mean Corpuscular HGB Conc 33.6 g/dl (31.0-36.0); Mean Corpuscular Hemoglobin 30.4 pg (27.0-33.0); Mean Corpuscular Volume 90.5 fL (80-98); Mean Platelet Volume 10.4 fL (9.4-12.4); Monocytes Absolute Auto 0.6 X10*3/uL (0.1-1.2); Neutrophils Absolute Auto 5.9 X10*3/uL (2.0-8.3); Platelet Count 183 X10*3/uL (160-400); Red Blood Count 4.54 X10*6/uL (4.60-5.80); Red Cell Distribution Width 14.5 % (11.0-16.0); White Blood Count 8.3 X10*3/uL (4.8-10.8)
[2020-03-28 07:20] LABS: INTERNATIONAL NORM RATIO 2.9 (0.9-1.1); Prothrombin Time 34.7 SEC (10.8-13.0)
[2020-03-28 07:36] LABS: Anion Gap 16 (12-20); Blood Urea Nitrogen 19 mg/dL (9-16); Calcium 8.2 mg/dL (8.4-10.2); Carbon Dioxide 24 mmol/L (22-29); Chloride 94 mmol/L (96-108); Creatinine Clr Calc Pharmacy 117.8; Estimated Glomerular Filt Rate > 60; Glucose Random 89 mg/dL (60-115); Potassium 4.4 mmol/l (3.3-5.1); Sodium 130 mmol/L (135-145)
[2020-03-28] MEDS: 0.9 % Sodium Chloride Flush 3 ML SYRINGE IVFLUSH ×2 (08:44→17:04)
[2020-03-28] MEDS: Acetaminophen 325 MG TABLET 650 MG PO ×3 (08:45→20:43)
[2020-03-28] MEDS: Docusate Sodium 100 MG CAPSULE 200 MG PO (08:45)
[2020-03-28] MEDS: calcitrioL 0.25 MCG CAPSULE PO (08:45)
[2020-03-28] MEDS: Multivitamin TABLET 1 TAB PO (08:46)
[2020-03-28] MEDS: Ascorbic Acid 500 MG TABLET PO ×2 (08:46→20:47)
[2020-03-28] MEDS: Levothyroxine Sodium 100 MCG TABLET PO (08:46)
[2020-03-28] MEDS: Metoprolol Tartrate 25 MG TABLET 50 MG PO ×2 (08:46→20:43)
[2020-03-28] MEDS: Fludrocortisone Acetate 0.1 MG TABLET PO (08:46)
[2020-03-28] MEDS: Baclofen 10 MG TABLET 20 MG PO ×2 (08:47→17:02)
--- NOTE | 2020-03-28 14:14 | MHC.CM.PN ---
cm met with pt this morning when he reported he did not want to go to [facility]. 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 Pt reports once she leaves he only eats small items like apples and he is able to transfer himself in and out of bed when he is ready to lie down. Pt also reports being able to transfer on and off commode. Pt agrees to completing a PT eval to determine how well he is able to transfer at this time. CM will meet with pt again following eval CM spoke to pts sister, Ifeanyi ([phone]) who reports the pt CANNOT go home. She reports he only has the help in the histology technologist and no one available the rest of the day. She reports the pt is lying when he says more help is being arranged. She says they do plan to try to get more help in the home but it has not been initiated yet and will take some time. They plan ti request an increase of home care hours through [facility]. Ifeanyi reports the pt has fallen in the recent past when trying to transfer to and from the commode and she fears she is going to find him on the floor. Ifeanyi reports the pt went to [facility] in the past and hated it only because they made him get dressed daily. She reports the pt usually wears a antoni daily at home. CM will call Ifeanyi back following PT eval and discussion with pt. Ifeanyi understands that although the treatment team is strongly recommending rehab, the pt would have to agree.
--- NOTE | 2020-03-28 15:45 | HO.PM.IMPN ---
Subjective Subjective Interval History: the patient was seen and evaluated this morning and in the afternoon Laying in bed, feels pain from spasms looks more Alert and interactive today Atrial fibrillation with RVR better controlled Denies any fever, chills or shortness of breath No reported other overnight events. Physical Exam Vital Signs: Vital Signs: Vital Signs Temp Pulse Resp BP Pulse Ox 03/28/20 11:44 98.6 F 72 18 100/56 L 97 03/28/20 08:46 89 128/62 03/28/20 07:59 97.4 F 89 20 128/62 94 03/28/20 03:08 97.5 F 76 19 95/56 L 95 03/27/20 23:15 97.6 F 80 19 141/88 H 97 03/27/20 20:30 104 H 149/117 H 03/27/20 18:53 96.9 F 76 19 149/117 H 96 Body Mass Index 30.8 Constitutional : Alert, oriented to place and time, in mild distress from painful spasms Neck : Normal inspection, Supple Cardiovascular : Irregular irregular heart rhythm, S1 S2, no lower extremity edema Respiratory : Good bilateral air entry, no crackles, wheezes or rhonchi Gastrointestinal: soft, lax, Normal bowel sounds, Non tender Skin : Warm/Dry, No rash, [place] catheter in place Neurological : Alert & oriented x2, confusion improved, lower body paraplegia Objective Data Current Medications Generic Name Dose Route Start Last Admin Trade Name Freq PRN Reason Stop Dose Admin Acetaminophen 650 mg 03/23/20 16:05 03/24/20 16:07 Acetaminophen 325 Mg Tablet PO 650 mg Q6H PRN Administration Pain, Mild (Pain Scale 1-3) Acetaminophen 650 mg 03/25/20 15:10 03/28/20 08:45 Acetaminophen 325 Mg Tablet PO 650 mg TID SACHIN Administration Ascorbic Acid 500 mg 03/23/20 21:00 03/28/20 08:46 Ascorbic Acid 500 Mg Tablet PO 500 mg BID SACHIN Administration Baclofen 20 mg 03/24/20 09:00 03/28/20 08:47 Baclofen 10 Mg Tablet PO 20 mg BID@09,16 SACHIN Administration Baclofen 40 mg 03/23/20 21:00 03/27/20 20:31 Baclofen 10 Mg Tablet PO 40 mg BEDTIME [facility] Administration Calcitriol 0.25 mcg 03/24/20 09:00 03/28/20 08:45 Calcitriol 0.25 Mcg Capsule PO 0.25 mcg DAILY [facility] Administration Calcium Carbonate 500 mg 03/23/20 21:00 03/28/20 08:45 Calcium Carbonate 500 Mg Tablet PO 500 mg BID SACHIN Administration Diazepam 1 mg 03/27/20 11:32 Diazepam 2 Mg Tablet PO QID PRN spasms Docusate Sodium 200 mg 03/24/20 09:00 03/28/20 08:45 Docusate Sodium 100 Mg Capsule PO 200 mg DAILY [facility]ACH[facility] Administration Fludrocortisone Acetate 0.1 mg 03/24/20 09:00 03/28/20 08:46 Fludrocortisone Acetate 0.1 Mg Tablet PO 0.1 mg DAILY [facility]ACH[facility] Administration Levothyroxine Sodium 100 mcg 03/24/20 09:00 03/28/20 08:46 Levothyroxine Sodium 100 Mcg Tablet PO 100 mcg DAILY [facility] Administration Metoprolol Tartrate 50 mg 03/27/20 21:00 03/28/20 08:46 Metoprolol Tartrate 25 Mg Tablet PO 50 mg BID SACHIN Administration Protocol Multivitamins/Vitamin C 1 tab 03/24/20 09:00 03/28/20 08:46 Multivitamin Tablet PO 1 tab DAILY [facility] Administration Ondansetron HCl 4 mg 03/23/20 16:05 Ondansetron Hcl 4 Mg/2 Ml Vial IVPUSH Q8H PRN Nausea and Vomiting Oxybutynin Chloride 10 mg 03/24/20 09:00 03/28/20 08:46 Oxybutynin Chloride Er 5 Mg Tab.Er.24 PO 10 mg DAILY [facility] Administration Pharmacy Consult 1 each 03/23/20 14:58 Consult Rx Perform Med Rec MISCELLANE ONCE PRN Consult order Pharmacy Consult 1 each 03/23/20 16:05 Consult Rx Perform Med Rec MISCELLANE ONCE PRN Consult order Senna 17.2 mg 03/23/20 21:00 03/27/20 20:29 Sennosides 8.6 Mg Tablet PO 17.2 mg BEDTIME SACHIN Administration Sodium Chloride 3 ml 03/23/20 16:05 03/28/20 08:44 0.9 % Sodium Chloride Flush 3 Ml Syringe IVFLUSH 3 ml QSHIFT [facility] Administration Warfarin Sodium 3 mg 03/24/20 18:00 03/26/20 16:41 Warfarin Sodium 3 Mg Tablet PO 3 mg [email or web address] [facility] Administration Warfarin Sodium 2 mg 03/23/20 18:00 03/27/20 17:24 Warfarin Sodium 1 Mg Tablet PO 2 mg [id number] [facility] Administration Labs CBC & Chem 7: 03/28/20 06:05 03/28/20 06:05 Assessment and Plan (1) Atrial fibrillation with rapid ventricular response: Status: Acute (2) Irreducible left inguinal hernia: Status: Chronic (3) Muscle spasm: Status: Acute Assessment and Plan: 64-year-old man admitted with H of AFib, spinal injury with paraplegia and continuous muscle spasms. He reports that he uses baclofen and diazepam at home with less efficacy. Spasms. History of paraplegia with frequent spasms. Will continue baclofen Change diazepam to p.r.n. He should follow-up with his PCP as outpatient and may consider referral for pain management may help with his frequent spasms. Atrial fibrillation with rapid ventricular response rate better controlled Continue Metoprolol to 50 mg b.i.d.\ IV Cardizem if needed received IV Lasix for fluid overload warfarin. PT/INR daily. Confusion improving Likely secondary to medications like diazepam and baclofen Change diazepam to p.r.n. Discontinue IV Ativan urinary retention History of self-catheterization [place] catheter placed, patient would like to keep it in at time of discharge Discussed possible risk, patient refused to remove the catheter and will follow-up with PCP for recurrent changes Irreducible left hernia Chronic Evaluated by surgery, for outpatient follow-up Normocytic anemia. No signs of bleeding, stable. Follow CBC. Hypothyroidism. Continue levothyroxine. : Dispo: turns that patient lives alone, with his confusion and physical deconditioning he is high risk to be discharged home. Patient agreeable today to consider short-term rehab. Pending safe discharge plan. DVT prophylaxis warfarin.
--- NOTE | 2020-03-28 15:56 | MHC.CM.PN ---
CM met with pt who reports after the PT eval he agrees he likely needs STR. Pt reports he has been to both [facility] and [facility] and [facility] would be his first choice. CM explained the difference between STR and [facility] and explained that he would have to qualify for AR. CM sent referral to [facility] for review. CM contacted pts sister Ifeanyi ([phone]) and updated her on pts current plan. CM will update her once placement is found.
[2020-03-28] MEDS: Warfarin Sodium 3 MG TABLET PO (17:07)
[2020-03-28] MEDS: diazePAM 2 MG TABLET 1 MG PO (19:42)
[2020-03-28] MEDS: Sennosides 8.6 MG TABLET 17.2 MG PO (20:42)
[2020-03-28] MEDS: Baclofen 10 MG TABLET 40 MG PO (20:42)
[2020-03-28] MEDS: Cyclobenzaprine HCl 10 MG TABLET PO (21:15)
--- NOTE | 2020-03-28 23:00 | PC.NURSE ---
Pt having very visible spasms to body, particularly to bilateral feet/legs and bilateral arms and neck. Pt requested Valium PO 1 mg which was given at 1745. Nursing assessment performed 40 min later showed no change in spasms and pt still complaining about spasms. Per Dr Cali, order for Flexeril given and Flexeril administered. Assessment performed 45 min after admin of Flexeril and visible spasms have stopped and pt states he is feeling more comfortable with signigivantly les spasms. Will continue to monitor. Call becerra within reach and safety measures in place.
[2020-03-29] VITALS (7 sets, daily range): BP systolic 54–148; BP diastolic 42–72; PULSE 56–78; RESP 16–22; TEMP 35.5–37.1; O2SAT 97–98
[2020-03-29] MEDS: 0.9 % Sodium Chloride Flush 3 ML SYRINGE IVFLUSH ×3 (02:08→16:09)
[2020-03-29] MEDS: Docusate Sodium 100 MG CAPSULE 200 MG PO (08:35)
[2020-03-29] MEDS: calcitrioL 0.25 MCG CAPSULE PO (08:35)
[2020-03-29] MEDS: Baclofen 10 MG TABLET 20 MG PO ×2 (08:35→16:08)
[2020-03-29] MEDS: Acetaminophen 325 MG TABLET 650 MG PO ×2 (08:36→16:08)
[2020-03-29] MEDS: Multivitamin TABLET 1 TAB PO (08:36)
[2020-03-29] MEDS: Ascorbic Acid 500 MG TABLET PO (08:36)
[2020-03-29] MEDS: Metoprolol Tartrate 25 MG TABLET 50 MG PO (08:36)
[2020-03-29] MEDS: Levothyroxine Sodium 100 MCG TABLET PO (08:36)
[2020-03-29] MEDS: Fludrocortisone Acetate 0.1 MG TABLET PO (08:37)
--- NOTE | 2020-03-29 12:02 | HO.PM.IMPN ---
Subjective Subjective Date of Service: 03/29/20 Interval History: the patient was seen and evaluated this morning and in the afternoon Laying in bed, pain from spasms improved significantly more Alert and interactive today Atrial fibrillation with RVR better controlled Denies any fever, chills or shortness of breath No reported other overnight events. Physical Exam Vital Signs: Vital Signs: Vital Signs Temp Pulse Resp BP Pulse Ox 03/29/20 11:50 96 F L 75 22 H 54/42 L 98 03/29/20 08:36 78 148/72 H 03/29/20 07:51 98.6 F 78 20 148/72 H 97 03/29/20 03:43 97.9 F 56 16 94/56 L 97 03/29/20 00:12 98.7 F 59 20 98 03/29/20 00:11 94/54 L 03/28/20 20:43 108 H 190/100 H 03/28/20 20:00 98.2 F 117 H 19 190/100 H 91 L 03/28/20 16:00 99.4 F 71 18 126/85 98 03/28/20 15:23 72 100/56 L 97 Body Mass Index 30.8 Constitutional : Alert, oriented to place and time, in mild distress from painful spasms Neck : Normal inspection, Supple Cardiovascular : Irregular irregular heart rhythm, S1 S2, no lower extremity edema Respiratory : Good bilateral air entry, no crackles, wheezes or rhonchi Gastrointestinal: soft, lax, Normal bowel sounds, Non tender Skin : Warm/Dry, No rash, [place] catheter in place Neurological : Alert & oriented x2, confusion improved, lower body paraplegia Objective Data Current Medications Generic Name Dose Route Start Last Admin Trade Name Fausto PRN Reason Stop Dose Admin Acetaminophen 650 mg 03/23/20 16:05 03/24/20 16:07 Acetaminophen 325 Mg Tablet PO 650 mg Q6H PRN Administration Pain, Mild (Pain Scale 1-3) Acetaminophen 650 mg 03/25/20 15:10 03/29/20 08:36 Acetaminophen 325 Mg Tablet PO 650 mg TID SACHIN Administration Ascorbic Acid 500 mg 03/23/20 21:00 03/29/20 08:36 Ascorbic Acid 500 Mg Tablet PO 500 mg BID SACHIN Administration Baclofen 20 mg 03/24/20 09:00 03/29/20 08:35 Baclofen 10 Mg Tablet PO 20 mg BID@09,16 SACHIN Administration Baclofen 40 mg 03/23/20 21:00 03/28/20 20:42 Baclofen 10 Mg Tablet PO 40 mg BEDTIME SACHIN Administration Calcitriol 0.25 mcg 03/24/20 09:00 03/29/20 08:35 Calcitriol 0.25 Mcg Capsule PO 0.25 mcg DAILY SACHIN Administration Calcium Carbonate 500 mg 03/23/20 21:00 03/29/20 08:36 Calcium Carbonate 500 Mg Tablet PO 500 mg BID SACHIN Administration Cyclobenzaprine HCl 10 mg 03/28/20 21:01 03/28/20 21:15 Cyclobenzaprine Hcl 10 Mg Tablet PO 10 mg BEDTIME PRN Administration Muscle Spasm Diazepam 1 mg 03/27/20 11:32 03/28/20 19:42 Diazepam 2 Mg Tablet PO 1 mg QID PRN Administration spasms Docusate Sodium 200 mg 03/24/20 09:00 03/29/20 08:35 Docusate Sodium 100 Mg Capsule PO 200 mg DAILY SACHIN Administration Fludrocortisone Acetate 0.1 mg 03/24/20 09:00 03/29/20 08:37 Fludrocortisone Acetate 0.1 Mg Tablet PO 0.1 mg DAILY SACH[facility] Administration Levothyroxine Sodium 100 mcg 03/24/20 09:00 03/29/20 08:36 Levothyroxine Sodium 100 Mcg Tablet PO 100 mcg DAILY [facility]ACH[facility] Administration Metoprolol Tartrate 50 mg 03/27/20 21:00 03/29/20 08:36 Metoprolol Tartrate 25 Mg Tablet PO 50 mg BID SACHIN Administration Protocol Multivitamins/Vitamin C 1 tab 03/24/20 09:00 03/29/20 08:36 Multivitamin Tablet PO 1 tab DAILY [facility]ACHIN Administration Ondansetron HCl 4 mg 03/23/20 16:05 Ondansetron Hcl 4 Mg/2 Ml Vial IVPUSH Q8H PRN Nausea and Vomiting Oxybutynin Chloride 10 mg 03/24/20 09:00 03/29/20 08:35 Oxybutynin Chloride Er 5 Mg Tab.Er.24 PO 10 mg DAILY SACH[facility] Administration Pharmacy Consult 1 each 03/23/20 14:58 Consult Rx Perform Med Rec MISCELLANE ONCE PRN Consult order Pharmacy Consult 1 each 03/23/20 16:05 Consult Rx Perform Med Rec MISCELLANE ONCE PRN Consult order Senna 17.2 mg 03/23/20 21:00 03/28/20 20:42 Sennosides 8.6 Mg Tablet PO 17.2 mg BEDTIME [facility]ACH[facility] Administration Sodium Chloride 3 ml 03/23/20 16:05 03/29/20 08:34 0.9 % Sodium Chloride Flush 3 Ml Syringe IVFLUSH 3 ml QSHIFT [facility] Administration Warfarin Sodium 3 mg 03/24/20 18:00 03/28/20 17:07 Warfarin Sodium 3 Mg Tablet PO 3 mg [email or web address] [facility] Administration Warfarin Sodium 2 mg 03/23/20 18:00 03/27/20 17:24 Warfarin Sodium 1 Mg Tablet PO 2 mg [id number] [facility] Administration Labs CBC & Chem 7: 03/28/20 06:05 03/28/20 06:05 Assessment and Plan (1) Atrial fibrillation with rapid ventricular response: Status: Acute (2) Irreducible left inguinal hernia: Status: Chronic (3) Muscle spasm: Status: Acute Assessment and Plan: 64-year-old man admitted with PMH of AFib, spinal injury with paraplegia and continuous muscle spasms. He reports that he uses baclofen and diazepam at home with less efficacy. Spasms. History of paraplegia with frequent spasms. Will continue baclofen diazepam to p.r.n. Atrial fibrillation with rapid ventricular response rate better controlled Continue Metoprolol to 50 mg b.i.d. received IV Lasix for fluid overload warfarin. PT/INR daily. Confusion resolving Likely secondary to medications like diazepam and baclofen Change diazepam to p.r.n. Discontinue IV Ativan urinary retention History of self-catheterization [place] catheter placed, patient would like to keep it in at time of discharge Discussed possible risk, patient refused to remove the catheter and will follow-up with PCP for recurrent changes Irreducible left hernia Chronic Evaluated by surgery, for outpatient follow-up Normocytic anemia. No signs of bleeding, stable. Follow CBC. Hypothyroidism. Continue levothyroxine. Dispo: patient lives alone, sister moved out. with his confusion and physical deconditioning he is high risk to be discharged home. Patient agreeable today to consider short-term rehab. Pending safe discharge plan. DVT prophylaxis warfarin.
--- NOTE | 2020-03-29 12:32 | P.DS_ITS ---
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 He reports history of body spasms for many years. He normally takes baclofen and diazepam but have not seem to work as well more recently. He does have 2 aides that come into his home to assist in his care as he is wheelchair bound. He self catheterizes throughout the day also. He denied fever, chills, nausea, vomiting, diarrhea, recent cough, recent illness, sick contacts. In the ER his vital signs are stable. All his labs are within acceptable limits. He has no infectious source. Seems to be medications may not be working as well and he is getting more frequent spasms. He was given lorazepam which seemed to help in the ER. Will continue this. Will place patient on observation Hospital course Muscle Spasms. History of paraplegia with frequent spasms. treated with baclofen and diazepam p.r.n. without around the clock Tylenol and as-needed Flexeril with good response. He required few doses of IV Ativan at the beginning but he did not receive any for the last 3 days. Atrial fibrillation with rapid ventricular response Developed rapid irregular rate. Evaluated by Cardiology. Increased Metoprolol to 50 mg b.i.d. with good response as heart rate is better. To continue warfarin. PT/INR daily. Confusion resolved developed secondary to medications like diazepam and baclofen. Improved back to baseline after discontinue IV Ativan and decrease diazepam to as needed. urinary retention History of self-catheterization After spinal injury [place] catheter placed during the hospital stay, patient would like to keep it in at time of discharge Discussed possible risk, patient refused to remove the catheter and will follow- up with PCP for recurrent changes Irreducible left hernia Chronic Evaluated by surgery, who recommended no intervention or surgery at this point for outpatient follow-up Time Spent with Patient Time attestation: Total time spent providing and/or coordinating discharge services: Physical Exam Vital Signs: Vital Signs: Vital Signs Temp Pulse Resp BP Pulse Ox 03/29/20 12:03 62 96/54 L 03/29/20 11:50 96 F L 75 22 H 54/42 L 98 03/29/20 08:36 78 148/72 H 03/29/20 07:51 98.6 F 78 20 148/72 H 97 03/29/20 03:43 97.9 F 56 16 94/56 L 97 03/29/20 00:12 98.7 F 59 20 98 03/29/20 00:11 94/54 L 03/28/20 20:43 108 H 190/100 H 03/28/20 20:00 98.2 F 117 H 19 190/100 H 91 L 03/28/20 16:00 99.4 F 71 18 126/85 98 03/28/20 15:23 72 100/56 L 97 Body Mass Index 30.8 Constitutional : Alert, oriented to place and time, in mild distress from painful spasms Neck : Normal inspection, Supple Cardiovascular : Irregular irregular heart rhythm, S1 S2, no lower extremity edema Respiratory : Good bilateral air entry, no crackles, wheezes or rhonchi Gastrointestinal: soft, lax, Normal bowel sounds, Non tender Skin : Warm/Dry, No rash, [place] catheter in place Neurological : Alert & oriented x2, confusion improved, lower body paraplegia Discharge Plan Discharge Patient Disposition: er SNF Referrals: Mikey Pimentel MD [Primary Care Provider] - Discharge Medications: New metoprolol tartrate 25 mg Tablet 50 mg PO BID Qty: 60 RF: 0 cyclobenzaprine 10 mg Tablet 10 mg PO BEDTIME PRN (Reason: Muscle Spasm) Qty: 30 RF: 0 acetaminophen 325 mg Tablet 650 mg PO TID Qty: 60 RF: 0 Continued multivitamin Tablet 1 tab PO DAILY RF: 0 sennosides [senna] 8.6 mg Tablet 17.2 mg PO BEDTIME RF: 0 warfarin 3 mg Tablet 3 mg PO TUTHSA@18 RF: 0 levothyroxine 100 mcg tablet 100 mcg PO DAILY RF: 0 calcium carbonate [Calcium 500] 500 mg calcium (1,250 mg) Tablet 500 mg PO BID RF: 0 ascorbic acid (vitamin C) 500 mg Tablet 500 mg PO BID RF: 0 baclofen 10 mg tablet 20 mg PO BID@09,16 RF: 0 baclofen 10 mg tablet 40 mg PO BEDTIME RF: 0 warfarin 2 mg Tablet 2 mg PO SUMOWEFR@18 RF: 0 docusate sodium [Colace] 100 mg Capsule 200 mg PO DAILY RF: 0 oxybutynin chloride 5 mg tablet 5 mg PO TID RF: 0 fludrocortisone 0.1 mg tablet 0.1 mg PO DAILY RF: 0 calcitriol 0.25 mcg capsule 0.25 mcg PO DAILY RF: 0 diazepam 2 mg tablet 2 mg PO QID PRN (Reason: Cramps) Qty: 20 RF: 0 Discontinued metoprolol tartrate 25 mg tablet 25 mg PO BID RF: 0 Discharge Orders: Discharge Order (Routine); Ordered 03/29/20 Ordered By: Azeem Newton Diet: advance to your usual diet Activity on Discharge: As tolerated Visit Report Forms: Patient Portal Discharge page Care Plan Goals: read below Health Concerns: read below Plan of Treatment: you were admitted to the hospital for recurrent attacks of spasm in your back. Your symptoms were controlled with using baclofen and diazepam with good response. You were evaluated by Physical therapy who recommended short-term rehab for you. During the hospital stay or heart rate went fast and irregular in rapid atrial fibrillation. You were evaluated by Cardiology in your home medication were increased with good response. To do physical therapy Continue baclofen around the clock, diazepam as needed Increase metoprolol to 50 mg twice daily
--- NOTE | 2020-03-29 12:44 | MHC.CM.PN ---
[facility], pts preferred facility, offering a bed today. Pt will be transported via BLS at 1700 hrs. Pt and sister/HCP, Ifeanyi ([phone]) aware and agreeable
[2020-03-29 12:56] LABS: INTERNATIONAL NORM RATIO 2.3 (0.9-1.1); Prothrombin Time 27.6 SEC (10.8-13.0)
[2020-03-29] MEDS: Warfarin Sodium 1 MG TABLET 2 MG PO (16:08)
== END 2020-03-29 17:20 | disposition skilled nursing facility (03) | DRG 556 ==
LOC: HO.ED 13:18 → HO.S3 15:12 → HO.IMC 03-24 20:03
PROVIDERS: Nurse Practitioner Acute Care; Admitting Provider Internal Medicine; Emergency Provider Emergency Medicine; PCP Internal Medicine; Visit Provider Student in an Organized Health Care Education/Training Program
DX: M62.838 Other muscle spasm (principal); K40.30 Unilateral inguinal hernia, with obstruction, without gangrene, not specified as recurrent; G82.20 Paraplegia, unspecified; I48.91 Unspecified atrial fibrillation; D64.9 Anemia, unspecified; R33.9 Retention of urine, unspecified; E03.9 Hypothyroidism, unspecified; Z20.828 Contact with and (suspected) exposure to other viral communicable diseases; Z87.891 Personal history of nicotine dependence; Z99.3 Dependence on wheelchair; Z88.0 Allergy status to penicillin; Z79.01 Long term (current) use of anticoagulants; Z79.890 Hormone replacement therapy; Z79.899 Other long term (current) drug therapy
CPT/HCPCS: 36415; 80048; 80076; 81001; 81003; 83690; 83735; 83880; 85025; 85610; 85730; 87635; 93005; 96374; 96376; 97162; 99283; 99284; 99285; J1940; J2060

== ENCOUNTER 2020-04-17 16:32 | Outpatient (REF) | payer OTHER, MEDICARE, MEDICAID, SELFPAY ==
--- NOTE | 2020-04-17 16:50 | MR_ITS ---
EXAMINATION: MR CERVICAL SPINE WITHOUT AND WITH CONTRAST CLINICAL INFORMATION: Spasms. Arm pain and leg pain. COMPARISON: None TECHNIQUE: MRI of the cervical spine was obtained using routine sequences with and without contrast. Intravenous contrast: Gadavist 10 mL. Significantly limited study with motion artifacts. FINDINGS: VERTEBRAL BODIES AND PARASPINAL SOFT TISSUES: The marrow signal is within normal limits. There is chronic disc desiccation at the C6-C7 level. Disc space narrowing and endplate spurring noted at C7-T1. There is a mild rightward curvature of the cervical spine. The paraspinal soft tissues are grossly unremarkable. The lung apices are clear. CERVICOMEDULLARY JUNCTION AND VISUALIZED POSTERIOR FOSSA: The craniovertebral junction and imaged portions of the brain parenchyma appear normal. No definite cord signal abnormality is visible, though assessment is limited by motion. There is no pathologic intradural enhancement. SPINAL LEVELS: C2-C3: No significant disc pathology. No central canal stenosis. Patent foramina. Mild facet arthropathy. C3-C4: Shallow disc-osteophyte complex with moderate facet arthropathy and foraminal encroachment. No central canal stenosis. C4-C5: Disc-osteophyte complex present with hypertrophic facet arthropathy, more so on the left side. Degree of central canal stenosis is difficult to discern given motion artifacts. Bilateral foraminal narrowing evident. C5-C6: Disc-osteophyte complex and mild central canal stenosis with bilateral foraminal narrowing due to endplate spurring and facet arthropathy. C6-C7: Chronic disc desiccation without central canal stenosis or foraminal encroachment. Question ankylosis of the articular processes, as well. C7-T1: Disc-osteophyte complex with mild central canal stenosis and mild bilateral foraminal narrowing. MR/MR cervical spine wo/w con IMPRESSION: Significantly limited study with motion artifacts. Multilevel disc-osteophyte complexes with foraminal encroachment. No large disc protrusion or obvious cord abnormality.
== END 2020-04-17 16:33 | disposition home or self-care (01) ==
LOC: HO.MRI 16:32
PROVIDERS: Visit Provider Physician Assistant Medical
DX: M62.830 Muscle spasm of back (principal); G82.20 Paraplegia, unspecified
CPT/HCPCS: 72156; A9585

== ENCOUNTER 2022-12-09 09:13 | Emergency (ER) | payer MEDICARE, MEDICAID, OTHER, SELFPAY ==
[2022-12-09 09:27] VITALS: BP 210/110; BP 60/40; BP 66/36; PULSE 60; PULSE 61; RESP 16; RESP 18; TEMP 36.5; O2SAT 94; O2SAT 95
[2022-12-09 10:22] VITALS: BP 89/65; PULSE 60
--- NOTE | 2022-12-09 10:26 | ED.MALEGU ---
HPI - Male Genitourinary General Chief complaint: Urogenital-Male Stated complaint: Green discharge from catheter per EMS Time Seen by Provider: 12/09/22 09:31 Source: patient, EMS, RN notes reviewed and old records reviewed Mode of arrival: EMS History of Present Illness HPI Narrative: 67-year-old male with past medical history of C5-C6 paraplegia, spasms, AFib with RVR, suprapubic catheter, presenting to the ED via EMS from assisted reportedly for suprapubic catheter turning green. Per EMS/patient catheter was changed yesterday at facility, no reported issues, patient states he noted discoloration of catheter today. Denies other symptoms including fever/chills, abdominal pain, nausea/vomiting, foul order urine, dysuria, hematuria Related Data Home Medications Medication Instructions Recorded Confirmed ascorbic acid (vitamin C) 500 mg 500 mg PO BID 03/23/20 03/23/20 tablet baclofen 10 mg tablet 20 mg PO BID@,16 03/23/20 03/23/20 baclofen 10 mg tablet 40 mg PO BEDTIME 03/23/20 03/23/20 calcitriol 0.25 mcg capsule 0.25 mcg PO DAILY 03/23/20 03/23/20 calcium carbonate 500 mg calcium 500 mg PO BID 03/23/20 03/23/20 (1,250 mg) tablet (Calcium 500) docusate sodium 100 mg capsule 200 mg PO DAILY 03/23/20 03/23/20 (Colace) fludrocortisone 0.1 mg tablet 0.1 mg PO DAILY 03/23/20 03/23/20 levothyroxine 100 mcg tablet 100 mcg PO DAILY 03/23/20 03/23/20 multivitamin 1 tab PO DAILY 03/23/20 03/23/20 oxybutynin chloride 5 mg tablet 5 mg PO TID 03/23/20 03/23/20 sennosides 8.6 mg tablet (senna) 17.2 mg PO BEDTIME 03/23/20 03/23/20 warfarin 2 mg tablet 2 mg PO SUMOWEFR@18 03/23/20 03/23/20 warfarin 3 mg tablet 3 mg PO TUTHSA@18 03/23/20 03/23/20 Previous Rx's Medication Instructions Recorded metoprolol tartrate 25 mg tablet 50 mg PO BID #60 tabs 03/27/20 acetaminophen 325 mg tablet 650 mg PO TID #60 tabs 03/29/20 cyclobenzaprine 10 mg tablet 10 mg PO BEDTIME PRN Muscle Spasm 03/29/20 #30 tabs diazepam 2 mg tablet 2 mg PO QID PRN Cramps #20 tabs 03/29/20 cefuroxime axetil 250 mg tablet 250 mg PO BID 7 days #14 tabs 12/09/22 Allergies Allergy/AdvReac Type Severity Reaction Status Date / Time dicloxacillin [From DYNAPEN] Allergy Unknown UNKNOWN Verified 12/09/22 09:26 ofloxacin [From FLOXIN] AdvReac Intermediate UPSET Verified 12/09/22 09:26 STOMACH penicillin V AdvReac Unknown Abdominal Verified 12/09/22 09:26 Pain Review of Systems Review of Systems: Constitutional:No Fever, No Chills, No Fatigue, No Malaise ENT/Mouth: No Ear Pain, No Nasal Congestion, No sore throat, No Rhinorrhea, No Swallowing Difficulty Eyes: No Eye Pain, No Swelling, No Redness, No Vision Changes Cardiovascular: No Chest Pain, No SOB Respiratory: No Cough, No Sputum, No Dyspnea Gastrointestinal: No Nausea, No Vomiting, No Diarrhea, No Constipation, No Abdominal pain Genitourinary: No Dysuria, No Urinary Frequency, No Hematuria, No Urinary Incontinence/retention, No Flank Pain Musculoskeletal: No joint pain, No Myalgias, No Joint Swelling Skin: No Skin Lesions, No rash Neuro: No Weakness, No Numbness, No Paresthesias, No Dizziness, No Headache Yes all other systems are reviewed and are negative Constitutional: Constitutional: Reports as per [facility] Past Medical History Attestation statement: The following information was validated with the patient. Source: old records reviewed Medical History Atrial fibrillation Autonomic dysfunction Hernia Hypothyroidism Irreducible left inguinal hernia Spasms of the hands or feet Spinal cord injury Surgical History H/O hemorrhoidectomy H/O hernia repair H/O thyroidectomy S/P IVC filter S/P tendon repair Family History Family History Sister Diabetes mellitus Social History Social History Household Members: Family Housing: House Do you presently have visiting nurse or other home services: Yes Alcohol intake: never Advance Directives: No service: No Physical Exam Vital Signs: Vital Signs: Last Vital Signs Temp 97.7 F 12/09/22 09:27 Pulse 60 12/09/22 12:29 Resp 20 12/09/22 12:29 BP 111/69 12/09/22 12:29 Pulse Ox 95 12/09/22 09:27 O2 Del Method Room Air 12/09/22 12:29 BMI result Body Mass Index 30.0 Const: General: cooperative, healthy appearing and no acute distress Orientation/consciousness: patient oriented x3 Limitations: no limitations HEENT: Head: Yes normal to inspection and Yes atraumatic Ears: hearing grossly normal bilaterally General nose exam: Normal external nose present Face and sinus: Yes normal facial exam Eyes: General: appearance normal, both eyes and all related structures EOM: EOMs intact bilaterally Neck: Neck: Yes normal visual inspection and Yes no meningeal signs Resp: Effort & Inspection: normal respiratory effort and no respiratory distress Auscultation: clear to auscultation bilaterally Cardio: Rate: regular rate Heart sounds: S1 normal heart sound present and S2 normal heart sound present GI: Other: Suprapubic catheter noted to lower abdomen without surrounding erythema/drainage, nontender Inspection: Yes normal to inspection Palpation (GI): Soft to palpation, nontender, no guarding and not rigid : General: Yes no CVA tenderness Back/Spine/Pelvis: Back: no CVA tenderness Skin: Rashes: no rashes Wounds: no wounds Neuro: General: patient oriented x3 and no meningeal signs Extrem: General: Yes normal to inspection Course Course Course Narrative: -hypotensive, patient otherwise asymptomatic in regards to his blood pressure. Admits takes adrenaline for known hypotension, will continue to monitor closely -UA with large leuks past to raise, trace blood, 21-50 wbc's > likely chronic infection however no previous cultures, and due to concern of UTI from assisted will treat with IV Rocephin. Will obtain labs. Still low suspicion for severe sepsis -1206--no leukocytosis. Acute on chronic anemia. Labs otherwise reassuring XR chest 1V IMPRESSION: Moderate to significant cardiomegaly. No acute process seen. Solitary pacer electrode is in right atrium. The right atrium appears enlarged. > blood pressure improving since ED arrival with position changes. Most recently 111/69. Patient remained asymptomatic, catheter is flowing appropriately. Will DC back to assisted with p.o. Ceftin and close PCP follow-up Results discussed with patient including worrisome signs and symptoms and strict return precautions, and when to return to the emergency department. They verbalized understanding and feel safe for discharge at this time. Medications Administered Discontinued Medications Generic Name Dose Route Start Last Admin Trade Name Freq PRN Reason Stop Dose Admin Sodium Chloride 1,000 mls @ 999 mls/hr 12/09/22 10:45 12/09/22 12:01 Ns IV 12/09/22 11:45 Infused .Q1H1M SACHIN Infusion Ceftriaxone Sodium 1 gm/ 50 mls @ 100 mls/hr 12/09/22 10:43 12/09/22 11:55 Sodium Chloride IV 12/09/22 11:12 Infused ONCE ONE Infusion Medical Decision Making Medical Decision Making MDM Narrative: 67-year-old male with past medical history of C5-C6 paraplegia, spasms, AFib with RVR, suprapubic catheter, presenting to the ED via EMS from assisted reportedly for suprapubic catheter turning green. On exam liable blood pressure, known to patient due to spinal cord injury, physical exam as above, suprapubic catheter in place without surrounding infection, abdomen soft/nontender, catheter flowing appropriately with clear/mildly cloudy urine in bag. Suprapubic catheter itself appears green. Nursing staff investigated catheter brand/model and appears catheter is baseline green. Spoke with assisted staff, apparently catheter was clogged yesterday, however appears to be appropriately flowing at present. Will rule out infection. Low suspicion for severe sepsis, known liable BP's is baseline for patient. Unlikely intra-abdominal pathology including abscess, appendicitis/diverticulitis Plan: UA, +/-labs Please refer to course for remaining clinical decision making, interpretation of labs/imaging results, and discussions with consultants and/or family members. Differential Diagnosis Differential Diagnoses: The differential diagnosis associated with the presentation includes As above Admission/Observation Consideration of admission/observation: Escalation of care including admission/observation considered Lab Data MDM Lab Attestation statement: I reviewed the patient's lab results. 12/09/22 11:08 12/09/22 11:09 Labs: Lab Results 12/09/22 12/09/22 12/09/22 Range/Units 09:49 11:08 11:08 WBC 7.2 (4.8-10.8) X10*3/uL RBC 4.17 L (4.60-5.80) X10*6/uL Hgb 11.2 L (14.0-18.0) g/dl Hct 35.3 L (42.0-52.0) % MCV 84.7 (80.0-98.0) fL MCH 26.9 L (27.0-33.0) pg MCHC 31.7 (31.0-36.0) g/dl RDW 16.9 H (11.0-16.0) % Plt Count 233 (160-400) X10*3/uL MPV 8.5 L (9.4-12.4) fL Immature Gran % (Auto) 0.4 (0.0-0.4) % Neut % (Auto) 67.6 (45-73) % Lymph % (Auto) 21.6 (20-40) % [place] % (Auto) 6.7 (2-11) % Eos % (Auto) 3.1 (0-4) % Baso % (Auto) 0.6 (0-2) % Lymph # (Auto) 1.6 (1.2-4.9) X10*3/uL [place] # (Auto) 0.5 (0.1-1.2) X10*3/uL Eos # (Auto) 0.2 (0.0-0.4) X10*3/uL Baso # (Auto) 0.0 (0.0-0.2) X10*3/uL Abs Immat Gran (auto) 0.03 (0.00-0.03) X10*3/uL Absolute Neuts (auto) 4.8 (2.0-8.3) x10*3/uL Absolute Nucleated RBC 0.000 (0.0-0.012) X10*3/uL Nucleated RBC % (auto) 0.0 (0.0-0.2) /100WBC Sodium (135-145) mmol/L Potassium (3.3-5.1) mmol/L Chloride (96-108) mmol/L Carbon Dioxide (22-29) mmol/L Anion Gap (12-20) BUN (9-16) mg/dL Creatinine (0.5-1.4) mg/dL Estim Creat Clear Calc Estimated GFR Random Glucose (60-115) mg/dL Lactic Acid 0.7 (0.5-2.0) mmol/L Calcium (8.4-10.2) mg/dL Magnesium (1.6-2.6) mg/dL Total Bilirubin (0.0-1.0) mg/dL Direct Bilirubin (0.0-0.5) mg/dL AST (5-37) U/L ALT (0-40) U/L Alkaline Phosphatase (39-117) U/L Troponin I High Sens (<3.5-35.0) ng/L Total Protein (6.5-8.0) g/dL Albumin (3.5-5.0) g/dL Urine Color Yellow Urine Appearance Clear Urine pH 7.0 (5.0-9.0) Ur Specific [place] <= 1.005 (1.005-1.025) Urine Protein Trace (Neg-Trace) mg/dL Urine Glucose (UA) Negative (Negative) mg/dL Urine Ketones Negative (Negative) mg/dL Urine Blood Trace H (Negative) Urine Nitrite Negative (Negative) Ur Leukocyte Esterase Large (3+) H (Negative) Urine RBC 0-2 (0-2) /HPF Urine WBC 21-50 H (0-5) /HPF Ur Squamous Epith Cells 0-2 (0-2) /HPF Urine Bacteria Trace (None Seen) Hyaline Casts 0-2 (0-2) /LPF 12/09/22 12/09/22 Range/Units 11:08 11:09 WBC (4.8-10.8) X10*3/uL RBC (4.60-5.80) X10*6/uL Hgb (14.0-18.0) g/dl Hct (42.0-52.0) % MCV (80.0-98.0) fL MCH (27.0-33.0) pg MCHC (31.0-36.0) g/dl RDW (11.0-16.0) % Plt Count (160-400) X10*3/uL MPV (9.4-12.4) fL Immature Gran % (Auto) (0.0-0.4) % Neut % (Auto) (45-73) % Lymph % (Auto) (20-40) % [place] % (Auto) (2-11) % Eos % (Auto) (0-4) % Baso % (Auto) (0-2) % Lymph # (Auto) (1.2-4.9) X10*3/uL [place] # (Auto) (0.1-1.2) X10*3/uL Eos # (Auto) (0.0-0.4) X10*3/uL Baso # (Auto) (0.0-0.2) X10*3/uL Abs Immat Gran (auto) (0.00-0.03) X10*3/uL Absolute Neuts (auto) (2.0-8.3) x10*3/uL Absolute Nucleated RBC (0.0-0.012) X10*3/uL Nucleated RBC % (auto) (0.0-0.2) /100WBC Sodium 139 (135-145) mmol/L Potassium 3.7 (3.3-5.1) mmol/L Chloride 102 (96-108) mmol/L Carbon Dioxide 27 (22-29) mmol/L Anion Gap 14 (12-20) BUN 16 (9-16) mg/dL Creatinine 0.71 (0.5-1.4) mg/dL Estim Creat Clear Calc 136.4 Estimated GFR > 60 Random Glucose 93 (60-115) mg/dL Lactic Acid (0.5-2.0) mmol/L Calcium 9.2 D (8.4-10.2) mg/dL Magnesium 2.0 (1.6-2.6) mg/dL Total Bilirubin 0.7 (0.0-1.0) mg/dL Direct Bilirubin 0.2 (0.0-0.5) mg/dL AST 17 (5-37) U/L ALT 13 (0-40) U/L Alkaline Phosphatase 70 (39-117) U/L Troponin I High Sens 26.1 (<3.5-35.0) ng/L Total Protein 6.6 (6.5-8.0) g/dL Albumin 3.7 (3.5-5.0) g/dL Urine Color Urine Appearance Urine pH (5.0-9.0) Ur Specific [place] (1.005-1.025) Urine Protein (Neg-Trace) mg/dL Urine Glucose (UA) (Negative) mg/dL Urine Ketones (Negative) mg/dL Urine Blood (Negative) Urine Nitrite (Negative) Ur Leukocyte Esterase (Negative) Urine RBC (0-2) /HPF Urine WBC (0-5) /HPF Ur Squamous Epith Cells (0-2) /HPF Urine Bacteria (None Seen) Hyaline Casts (0-2) /LPF Independent Interpretation I performed an independent interpretation of an: EKG (EKG ventricular paced at a rate of 60. QRS 134. QTC 486. No STEMI) Radiology Impression Discussion of test interpretation with radiology: I have reviewed the radiologist's reading. Independent Historian Clinical information obtained from an independent historian. History obtained from or confirmed by: EMS and Other ([facility] staff) External Record Review External record reviewed: Inpatient record, Office record, Outpatient record, Prior outpatient labs, Prior outpatient radiology, Primary care record and Outside ED record Tests considered The following testing was considered but not selected: As above Prescription Management I considered prescription management with: Antibiotic Chronic Conditions Patient?s care impacted by: Other (Paraplegia) Discharge Plan Discharge Clinical Impression: Urinary tract infection Patient Disposition: Home, Self-Care Instructions: Catheter-associated Urinary Tract Infection (ED) Additional Instructions: Your blood work was reassuring. You do have a urine infection. Ceftin is an antibiotic please take as prescribed Your x-ray shows an enlarged heart If he develops abdominal pain, fever, nausea/vomiting, or blood in her catheter return to the emergency Prescriptions: New cefuroxime axetil 250 mg tablet 250 mg PO BID 7 Days Qty: 14 0RF No Action multivitamin Tablet 1 tab PO DAILY sennosides [senna] 8.6 mg Tablet 17.2 mg PO BEDTIME warfarin 3 mg Tablet 3 mg PO TUTHSA@18 levothyroxine 100 mcg tablet 100 mcg PO DAILY calcium carbonate [Calcium 500] 500 mg calcium (1,250 mg) Tablet 500 mg PO BID ascorbic acid (vitamin C) 500 mg Tablet 500 mg PO BID baclofen 10 mg tablet 20 mg PO BID@,16 baclofen 10 mg tablet 40 mg PO BEDTIME warfarin 2 mg Tablet 2 mg PO SUMOWEFR@18 docusate sodium [Colace] 100 mg Capsule 200 mg PO DAILY oxybutynin chloride 5 mg tablet 5 mg PO TID fludrocortisone 0.1 mg tablet 0.1 mg PO DAILY calcitriol 0.25 mcg capsule 0.25 mcg PO DAILY metoprolol tartrate 25 mg Tablet 50 mg PO BID Qty: 60 0RF Protocol: Hold for SBP/HR < HOLD for SBP < : 90 HOLD for HR < : 60 cyclobenzaprine 10 mg Tablet 10 mg PO BEDTIME PRN (Reason: Muscle Spasm) Qty: 30 0RF acetaminophen 325 mg Tablet 650 mg PO TID Qty: 60 0RF Rx Instructions: For 10 days then as needed diazepam 2 mg tablet 2 mg PO QID PRN (Reason: Cramps) Qty: 20 0RF Referrals: Marc Young MD [Primary Care Provider] - 5 days
[2022-12-09 10:38] VITALS: BP 99/64; PULSE 60
[2022-12-09 10:53] VITALS: BP 101/63; PULSE 60
[2022-12-09 11:16] LABS: MANUAL DIFF FLAG NO
[2022-12-09 11:18] LABS: Basophils Percent Auto 0.6 % (0-2); Eosinophils Absolute Auto 0.2 X10*3/uL (0.0-0.4); Eosinophils Percent Auto 3.1 % (0-4); Hematocrit 35.3 % (42.0-52.0); Hemoglobin 11.2 g/dl (14.0-18.0); Imm Gran Abs Auto 0.03 X10*3/uL (0.00-0.03); Imm Gran Pct Auto 0.4 % (0.0-0.4); Lymphocytes Absolute Auto 1.6 X10*3/uL (1.2-4.9); Lymphocytes Percent Auto 21.6 % (20-40); Mean Corpuscular HGB Conc 31.7 g/dl (31.0-36.0); Mean Corpuscular Hemoglobin 26.9 pg (27.0-33.0); Mean Corpuscular Volume 84.7 fL (80.0-98.0); Mean Platelet Volume 8.5 fL (9.4-12.4); Monocytes Absolute Auto 0.5 X10*3/uL (0.1-1.2); Monocytes Percent Auto 6.7 % (2-11); Neutrophils Absolute Auto 4.8 x10*3/uL (2.0-8.3); Neutrophils Percent Auto 67.6 % (45-73); Platelet Count 233 X10*3/uL (160-400); Red Blood Count 4.17 X10*6/uL (4.60-5.80); Red Cell Distribution Width 16.9 % (11.0-16.0); White Blood Count 7.2 X10*3/uL (4.8-10.8)
[2022-12-09 11:27] LABS: Lactic Acid 0.7 mmol/L (0.5-2.0)
[2022-12-09 11:32] LABS: Alanine Aminotransferase 13 U/L (0-40); Albumin Level 3.7 g/dL (3.5-5.0); Alkaline Phosphatase 70 U/L (39-117); Anion Gap 14 (12-20); Aspartate Amino Transferase 17 U/L (5-37); Bilirubin Direct 0.2 mg/dL (0.0-0.5); Bilirubin Total 0.7 mg/dL (0.0-1.0); Blood Urea Nitrogen 16 mg/dL (9-16); Calcium 9.2 mg/dL (8.4-10.2); Carbon Dioxide 27 mmol/L (22-29); Chloride 102 mmol/L (96-108); Creatinine Clr Calc Pharmacy 136.4; Estimated Glomerular Filt Rate > 60; Glucose Random 93 mg/dL (60-115); Potassium 3.7 mmol/L (3.3-5.1); Sodium 139 mmol/L (135-145); Total Protein 6.6 g/dL (6.5-8.0)
[2022-12-09 11:39] LABS: Troponin-I High Sensitivity 26.1 ng/L (<3.5-35.0)
[2022-12-09 12:29] VITALS: BP 111/69; PULSE 60; RESP 20
== END 2022-12-09 16:58 | disposition home or self-care (01) ==
PROVIDERS: Physician Assistant; Emergency Provider Emergency Medicine Emergency Medical Services; PCP Family Medicine
DX: N39.0 Urinary tract infection, site not specified (principal); R94.31 Abnormal electrocardiogram [ECG] [EKG]; I95.9 Hypotension, unspecified; Z79.899 Other long term (current) drug therapy
CPT/HCPCS: 36415; 71045; 80048; 80076; 81001; 83605; 83735; 84484; 85025; 87040; 87086; 93005; 96361; 96374; 99284; 99285; J0696

== ENCOUNTER 2023-01-01 10:44 | Emergency (ER) | payer MEDICARE, MEDICAID, OTHER, SELFPAY ==
[2023-01-01 10:56] VITALS: BP 131/85; BP 177/99; PULSE 104; PULSE 61; RESP 18; TEMP 36.5; O2SAT 95; BMI 29.0
--- NOTE | 2023-01-01 11:26 | PC.NURSE ---
catheter found to be draining urine, attempted to deflate balloon but was not successful. Bladder scan done, 329ml of urine in bladder. abdomen firm and distended, ostomy bag intact and contains dark green matter. pt has chronic right sided arm to shoulder pain 10/10
--- NOTE | 2023-01-01 12:50 | ED.MALEGU ---
HPI - Male Genitourinary General Chief complaint: Urogenital-Male Stated complaint: F/C ISSUE/BLOCKED PER STAFF Time Seen by Provider: 01/01/23 11:15 Source: patient Mode of arrival: EMS History of Present Illness HPI Narrative: This is a 67-year-old male who is partial quadriplegic can arise from a retirement where he has a chronic indwelling suprapubic catheter that he states was not draining earlier today but he noticed that there was some urine around the site and states that it is typically clogged if this happens. The nurse at the retirement attempted to deflate the catheter balloon but patient states was unable to and then when attempted to remove the suprapubic catheter again unsuccessful. He denies any fevers or chills. Related Data Home Medications Medication Instructions Recorded Confirmed ascorbic acid (vitamin C) 500 mg 500 mg PO BID 03/23/20 03/23/20 tablet baclofen 10 mg tablet 20 mg PO BID@09,16 03/23/20 03/23/20 baclofen 10 mg tablet 40 mg PO BEDTIME 03/23/20 03/23/20 calcitriol 0.25 mcg capsule 0.25 mcg PO DAILY 03/23/20 03/23/20 calcium carbonate 500 mg calcium 500 mg PO BID 03/23/20 03/23/20 (1,250 mg) tablet (Calcium 500) docusate sodium 100 mg capsule 200 mg PO DAILY 03/23/20 03/23/20 (Colace) fludrocortisone 0.1 mg tablet 0.1 mg PO DAILY 03/23/20 03/23/20 levothyroxine 100 mcg tablet 100 mcg PO DAILY 03/23/20 03/23/20 multivitamin 1 tab PO DAILY 03/23/20 03/23/20 oxybutynin chloride 5 mg tablet 5 mg PO TID 03/23/20 03/23/20 sennosides 8.6 mg tablet (senna) 17.2 mg PO BEDTIME 03/23/20 03/23/20 warfarin 2 mg tablet 2 mg PO SUMOWEFR@03/23/20 03/23/20 warfarin 3 mg tablet 3 mg PO TUTHSA@18 03/23/20 03/23/20 Previous Rx's Medication Instructions Recorded metoprolol tartrate 25 mg tablet 50 mg PO BID #60 tabs 03/27/20 acetaminophen 325 mg tablet 650 mg PO TID #60 tabs 03/29/20 cyclobenzaprine 10 mg tablet 10 mg PO BEDTIME PRN Muscle Spasm 03/29/20 #30 tabs diazepam 2 mg tablet 2 mg PO QID PRN Cramps #20 tabs 03/29/20 cefuroxime axetil 250 mg tablet 250 mg PO BID 7 days #14 tabs 12/09/22 Allergies Allergy/AdvReac Type Severity Reaction Status Date / Time dicloxacillin [From DYNAPEN] Allergy Unknown UNKNOWN Verified 12/09/22 09:26 ofloxacin [From FLOXIN] AdvReac Intermediate UPSET Verified 12/09/22 09:26 STOMACH penicillin V AdvReac Unknown Abdominal Verified 12/09/22 09:26 Pain Review of Systems Review of Systems: Pertinent positives and negatives as stated in HPI [facility] Past Medical History Source: nursing notes reviewed Medical History Atrial fibrillation Autonomic dysfunction Hernia Hypothyroidism Irreducible left inguinal hernia Spasms of the hands or feet Spinal cord injury Surgical History H/O hemorrhoidectomy H/O hernia repair H/O thyroidectomy S/P IVC filter S/P tendon repair Family History Family History Sister Diabetes mellitus Social History Social History Household Members: Family Housing: House Do you presently have visiting nurse or other home services: Yes Alcohol intake: never Smoked in Last 30 Days: No Use of substances other than those prescribed or required for medical reasons: No Advance Directives: No Advance Directives Information Provided: Yes service: No Physical Exam Vital Signs: Vital Signs: Last Vital Signs Temp 97.7 F 01/01/23 10:56 Pulse 61 01/01/23 10:56 Resp 18 01/01/23 10:56 BP 131/85 01/01/23 10:56 Pulse Ox 95 01/01/23 10:56 O2 Del Method Room Air 01/01/23 10:56 BMI result Body Mass Index 29.0 VITAL SIGNS: Reviewed. GENERAL: Well developed, well nourished, in no acute distress. HEAD: Normocephalic/atraumatic EYES: PERRLA, EOMI EARS: Ext canals without abnormality NOSE: Nares patent bilateral OROPHARYNX: no oral lesions noted, posterior pharynx clear NECK: Supple, no adenopathy LUNGS: Normal breath sounds. No adventitious sounds or accessory muscle use. SpO2<95> CARDIOVASCULAR: Regular rate and rhythm without noted murmurs ABDOMEN: Soft, non-tender, non-distended with bowel sounds, suprapubic catheter noted, there is urine that is draining but also noted is small around of urine leaking around the site. MUSCULOSKELETAL: No tenderness, deformities, or effusions noted on gross inspection. EXTREMITIES: No cyanosis, clubbing or edema. SKIN: Inspection of the skin reveals no rashes NEUROLOGIC: Alert and oriented x 4. Quadriplegia Medical Decision Making Medical Decision Making MDM Narrative: 67-year-old male with history and clinical presentation, DDX: Malfunction of suprapubic catheter, UTI, debris clogging catheter Bladder scan demonstrates 329 cc within the bladder though there is noted urine draining into the collection bag. I attempted to withdraw any remaining fluid from the balloon but there was no liquid obtained. On attempts to remove the catheter there is significant resistance. I performed a bedside ultrasound, I was not able to visualize the balloon catheter. 1157: I discussed the case with Dr. Scott, urology, who observes that the leakage is likely secondary to spasm and recommends cutting off the balloon port and then removing the catheter and replacing it with another. 1434: A successfully cut the balloon, removed the previous antimicrobial suprapubic catheter and replaced with another catheter under sterile conditions with good urine production and no leakage around the catheter site. Patient is otherwise stable for discharge back to his facility, there is no concern for urinary tract infection. Differential Diagnosis Differential Diagnoses: The differential diagnosis associated with the presentation includes Please see the discussion above Admission/Observation Consideration of admission/observation: Escalation of care including admission/observation considered Please see the discussion above Consult Healthcare Provider Management of the patient was discussed with: Community Liaison Please see the discussion above Discharge Plan Discharge Clinical Impression: Malfunction of indwelling urinary catheter Patient Disposition: Xfer Other Instructions: [place] Catheter Placement and Care (ED), How to Care for Your Suprapubic Catheter (DC) Additional Instructions: 1. Resume all home medications as prescribed. 2. You will need to have this catheter replaced within anti microbial suprapubic catheter at your earliest convenience. Return to the ER for any worsening symptoms. Prescriptions: No Action multivitamin Tablet 1 tab PO DAILY sennosides [senna] 8.6 mg Tablet 17.2 mg PO BEDTIME warfarin 3 mg Tablet 3 mg PO TUTHSA@18 levothyroxine 100 mcg tablet 100 mcg PO DAILY calcium carbonate [Calcium 500] 500 mg calcium (1,250 mg) Tablet 500 mg PO BID ascorbic acid (vitamin C) 500 mg Tablet 500 mg PO BID baclofen 10 mg tablet 20 mg PO BID@09,16 baclofen 10 mg tablet 40 mg PO BEDTIME warfarin 2 mg Tablet 2 mg PO SUMOWEFR@18 docusate sodium [Colace] 100 mg Capsule 200 mg PO DAILY oxybutynin chloride 5 mg tablet 5 mg PO TID fludrocortisone 0.1 mg tablet 0.1 mg PO DAILY calcitriol 0.25 mcg capsule 0.25 mcg PO DAILY metoprolol tartrate 25 mg Tablet 50 mg PO BID Qty: 60 0RF Protocol: Hold for SBP/HR < HOLD for SBP < : 90 HOLD for HR < : 60 cyclobenzaprine 10 mg Tablet 10 mg PO BEDTIME PRN (Reason: Muscle Spasm) Qty: 30 0RF acetaminophen 325 mg Tablet 650 mg PO TID Qty: 60 0RF Rx Instructions: For 10 days then as needed diazepam 2 mg tablet 2 mg PO QID PRN (Reason: Cramps) Qty: 20 0RF cefuroxime axetil 250 mg tablet 250 mg PO BID 7 Days Qty: 14 0RF
== END 2023-01-01 15:24 | disposition other institution (70) ==
PROVIDERS: Emergency Provider Student in an Organized Health Care Education/Training Program
DX: T83.098A Other mechanical complication of other urinary catheter, initial encounter (principal); Y73.8 Miscellaneous gastroenterology and urology devices associated with adverse incidents, not elsewhere classified; Y92.9 Unspecified place or not applicable; Z79.899 Other long term (current) drug therapy
CPT/HCPCS: 99284

== ENCOUNTER 2023-01-01 22:19 | Emergency (ER) | payer MEDICARE, MEDICAID, SELFPAY ==
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
[2023-01-01] MEDS: Morphine Sulfate Immed Release 15 MG TABLET PO (23:35)
--- NOTE | 2023-01-01 23:45 | MHC.EDTECH ---
Call out to [facility] @1800 to book BLS transport back to half-way. ETA of one hour was given
== END 2023-01-02 05:13 ==
PROVIDERS: Emergency Provider Internal Medicine; PCP Family Medicine
DX: M79.10 Myalgia, unspecified site (principal); M79.601 Pain in right arm; Z79.899 Other long term (current) drug therapy
CPT/HCPCS: 99283; 99284

== ENCOUNTER 2023-01-03 11:44 | Emergency (ER) | payer MEDICARE, MEDICAID, SELFPAY ==
[2023-01-03 11:53] VITALS: BP 116/77; PULSE 89; O2SAT 98; BMI 29.2
[2023-01-03 12:15] VITALS: BP 72/41; PULSE 61; RESP 18; TEMP 36.4; O2SAT 95
[2023-01-03 12:19] VITALS: BP 97/29; PULSE 74
--- NOTE | 2023-01-03 12:42 | ED.GENADULT ---
HPI - General Adult General Chief complaint: Extremity Problem Stated complaint: chronic shoulder pain Time Seen by Provider: 01/03/23 12:41 Source: patient and EMS Mode of arrival: EMS Limitations: no limitations History of Present Illness HPI narrative: Patient is a 67 year old assigned male at with a history of atrial fib and chronic right shoulder pain presenting to the emergency department today with a flare of right shoulder pain. Patient states that he is already on dilaudid and that is not enough to control his right shoulder pain. Patient denies any dizziness, lightheadedness, abdominal pain, nausea, vomiting, fever, chills, blurry vision, double vision, loss of vision, chest pain, difficulty breathing, shortness of breath, back pain, night sweats, blood in his urine or stool, syncope or a near syncopal episode, recent trauma or falls, bowel incontinence, bladder incontinence, bowel retention, bladder retention, or any other complaints at this time. Onset (ago): year(s) Location: right and upper extremity Radiation: non-radiation Severity: mild Severity scale (1-10): 4 Quality: aching Pain Consistency: constant Relieving factors: none Exacerbating factors: movement Associated symptoms: denies other symptoms Treatments prior to arrival: none Related Data Home Medications Medication Instructions Recorded Confirmed ascorbic acid (vitamin C) 500 mg 500 mg PO BID 03/23/20 03/23/20 tablet baclofen 10 mg tablet 20 mg PO BID@09,16 03/23/20 03/23/20 baclofen 10 mg tablet 40 mg PO BEDTIME 03/23/20 03/23/20 calcitriol 0.25 mcg capsule 0.25 mcg PO DAILY 03/23/20 03/23/20 calcium carbonate 500 mg calcium 500 mg PO BID 03/23/20 03/23/20 (1,250 mg) tablet (Calcium 500) docusate sodium 100 mg capsule 200 mg PO DAILY 03/23/20 03/23/20 (Colace) fludrocortisone 0.1 mg tablet 0.1 mg PO DAILY 03/23/20 03/23/20 levothyroxine 100 mcg tablet 100 mcg PO DAILY 03/23/20 03/23/20 multivitamin 1 tab PO DAILY 03/23/20 03/23/20 oxybutynin chloride 5 mg tablet 5 mg PO TID 03/23/20 03/23/20 sennosides 8.6 mg tablet (senna) 17.2 mg PO BEDTIME 03/23/20 03/23/20 warfarin 2 mg tablet 2 mg PO SUMOWEFR@18 03/23/20 03/23/20 warfarin 3 mg tablet 3 mg PO TUTHSA@18 03/23/20 03/23/20 Previous Rx's Medication Instructions Recorded metoprolol tartrate 25 mg tablet 50 mg PO BID #60 tabs 03/27/20 acetaminophen 325 mg tablet 650 mg PO TID #60 tabs 03/29/20 cyclobenzaprine 10 mg tablet 10 mg PO BEDTIME PRN Muscle Spasm 03/29/20 #30 tabs diazepam 2 mg tablet 2 mg PO QID PRN Cramps #20 tabs 03/29/20 cefuroxime axetil 250 mg tablet 250 mg PO BID 7 days #14 tabs 12/09/22 Allergies Allergy/AdvReac Type Severity Reaction Status Date / Time dicloxacillin [From DYNAPEN] Allergy Unknown UNKNOWN Verified 12/09/22 09:26 ofloxacin [From FLOXIN] AdvReac Intermediate UPSET Verified 12/09/22 09:26 STOMACH penicillin V AdvReac Unknown Abdominal Verified 12/09/22 09:26 Pain Review of Systems Constitutional: Constitutional: Reports no additional constitutional complaints, Denies chills, Denies fever(s) and Denies night sweats Eyes: Eyes: Reports no additional eye complaints, Denies blurry vision, Denies change in vision, Denies diplopia, Denies eye discharge, Denies loss of vision and Denies eye pain ENT: Denies dizziness Cardiovascular: Cardiovascular: Reports no additional cardiovascular complaints, Denies chest pain, Denies lightheadedness, Denies Loss of Consciousness and Denies dyspnea Respiratory: Respiratory: Reports no additional respiratory complaints and Denies dyspnea Gastrointestinal: Gastrointestinal: Reports no additional gastrointestinal complaints, Denies abdominal pain, Denies melena, Denies hematochezia, Denies change in bowel habits and Denies change in stool character Genitourinary: Genitourinary: Reports no additional male genitourinary complaints, Denies hematuria, Denies oliguria, Denies difficulty urinating, Denies dysuria, Denies urinary frequency, Denies urinary hesitancy, Denies urinary incontinence and Denies urinary urgency Musculoskeletal: Musculoskeletal: Reports no additional musculoskeletal complaints, Denies numbness and Denies tingling Comments: right shoulder pain Neurologic: Denies dizziness, Denies loss of vision, Denies numbness and Denies tingling Psychiatric: Psychiatric: Reports no additional psychiatric complaints Endocrine: Endocrine: Reports no additional endocrine complaints Hematologic/Lymphatic: Hematologic/Lymphatic: Reports no additional hematologic/lymphatic complaints Allergic/Immunologic: Allergic/Immunologic: Reports no additional allergic/immunologic complaints [facility] Past Medical History Attestation statement: The following information was validated with the patient. Source: old records reviewed and nursing notes reviewed Medical History Atrial fibrillation Autonomic dysfunction Hernia Hypothyroidism Irreducible left inguinal hernia Spasms of the hands or feet Spinal cord injury Surgical History H/O hemorrhoidectomy H/O hernia repair H/O thyroidectomy S/P IVC filter S/P tendon repair Family History Family History Sister Diabetes mellitus Social History Social History Household Members: Family Housing: House Do you presently have visiting nurse or other home services: Yes Alcohol intake: former Smoked in Last 30 Days: No Use of substances other than those prescribed or required for medical reasons: No Advance Directives: No Advance Directives Information Provided: No service: No Physical Exam ED Vital Signs: Vital Signs - 24 hr 01/03/23 12:15 01/03/23 12:19 Temperature 97.6 F Pulse Rate 61 74 Respiratory Rate 18 Blood Pressure 72/41 L 97/29 L Pulse Oximetry 95 Oxygen Delivery Method Room Air BMI result Body Mass Index 29.2 Const General: cooperative, no acute distress, alert and awake Nutritional Appearance: well nourished Orientation/consciousness: patient oriented x3 Limitations: no limitations HENMT Head: Yes normal to inspection and Yes atraumatic Ears: hearing grossly normal bilaterally and external ears normal General nose exam: Normal external nose present, no nasal discharge noted and no epistaxis Face and sinus: Yes normal facial exam, No abrasion and No laceration Mouth: Normal oral and palatal mucosa present, no drooling and no muffled voice Eyes General: appearance normal, both eyes and all related structures Periorbital: periorbital findings normal Eyelids: Yes eyelids normal Conjunctivae: conjunctivae normal Pupils: Equal, round and reactive pupils present EOM: EOMs intact bilaterally Neck Neck: Yes normal visual inspection, Yes full ROM and Yes no lymphadenopathy Chest Chest palpation & inspection: normal inspection of the chest Resp Effort & Inspection: normal respiratory effort and able to speak in complete sentences GI Other: suprapubic catheter in place Neuro General: patient oriented x3 and moves all extremities Cranial nerves: Yes Equal, round and reactive pupils present Cognition (Neuro): normal cognition Extrem Other: Paraplegic, no lower extremity movement General: Yes normal to inspection and Yes capillary refill normal Psych Appearance: grossly normal Mental Status: mental status grossly normal Affect: normal affect Attitude: cooperative Thought process: Normal thought process present Thought content: Normal thought content present Insight: Good insight present (Psych) Course Course Course Narrative: Patient to be discharged back to facility. His pressures have been somewhat soft and remains soft. His baseline blood pressure is low secondary to spinal cord injury. He is requesting a dose of his home midodrine which was ordered prior to his discharge from the ER Medications Administered Discontinued Medications Generic Name Dose Route Start Last Admin Trade Name Freq PRN Reason Stop Dose Admin Sodium Chloride 1,000 mls @ 999 mls/hr 01/03/23 13:00 01/03/23 15:15 Ns IV 01/03/23 14:00 Infused .Q1H1M SACHIN Infusion Tramadol HCl 50 mg 01/03/23 12:50 01/03/23 13:50 Tramadol Hcl 50 Mg Tablet PO 01/03/23 12:51 50 mg ONCE ONE Administration Medical Decision Making Medical Decision Making [facility] Narrative: Patient is a 67 year old assigned male at with a history of paraplegia, atrial fibrillation, and chronic right shoulder pain presenting to the emergency department today with right shoulder pain. Patient's physical exam was as noted in the physical exam portion of this chart. Patient's blood work was unremarkable. Patient's urine showed a possible urinary tract infection however, when compared to the patient's previous urine samples that had negative cultures, this urine result is consistent. Will await treatment until the culture reports. Patient's EKG was unremarkable. Patient's blood pressure was on the lower side however, this is normal for the patient. I explained my physical exam findings as well as all test results to the patient. I answered all questions asked by the patient. Patient received PO Tramadol given his soft blood pressures and his current use of PO dilaudid. Patient stated that did not resolve his pain. I explained to the patient that given his soft blood pressures and the chronic nature of this pain in the absence of acute emergency, he should follow up with his PCP for more appropriate pain management. I stressed the importance of the patient taking his medication as prescribed. I stressed the importance of the patient following up with his primary care provider. I stressed the importance of the patient returning to the emergency department immediately if his symptoms were to worsen or if he were to develop any dizziness, shortness of breath, difficulty breathing, chest pain, blurry vision, loss of vision, nausea, vomiting, abdominal pain, fever, chills, back pain, or any other complaints. Patient verbalized agreement and understanding with this treatment plan and discharge. Differential Diagnosis Differential Diagnoses: The differential diagnosis associated with the presentation includes Chronic right shoulder pain Admission/Observation Consideration of admission/observation: Escalation of care including admission/observation considered Patient would have been admitted to the hospital had his work up had any findings where hospital admission was appropriate and his clinical presentation warranted hospital admission. Lab Data [facility] Lab Attestation statement: I reviewed the patient's lab results. My interpretation of these lab results are in the [facility] portion of this chart. 01/03/23 12:43 01/03/23 12:43 Labs: Lab Results 01/03/23 01/03/23 01/03/23 Range/Units 12:43 12:43 12:43 WBC 10.2 (4.8-10.8) X10*3/uL RBC 4.31 L (4.60-5.80) X10*6/uL Hgb 11.7 L (14.0-18.0) g/dl Hct 37.0 L (42.0-52.0) % MCV 85.8 (80.0-98.0) fL MCH 27.1 (27.0-33.0) pg MCHC 31.6 (31.0-36.0) g/dl RDW 16.1 H (11.0-16.0) % Plt Count 221 (160-400) X10*3/uL MPV 9.5 (9.4-12.4) fL Immature Gran % (Auto) 0.3 (0.0-0.4) % Neut % (Auto) 78.4 H (45-73) % Lymph % (Auto) 12.8 L (20-40) % [place] % (Auto) 6.4 (2-11) % Eos % (Auto) 1.7 (0-4) % Baso % (Auto) 0.4 (0-2) % Lymph # (Auto) 1.3 (1.2-4.9) X10*3/uL [place] # (Auto) 0.7 (0.1-1.2) X10*3/uL Eos # (Auto) 0.2 (0.0-0.4) X10*3/uL Baso # (Auto) 0.0 (0.0-0.2) X10*3/uL Abs Immat Gran (auto) 0.03 (0.00-0.03) X10*3/uL Absolute Neuts (auto) 8.0 (2.0-8.3) x10*3/uL Absolute Nucleated RBC 0.000 (0.0-0.012) X10*3/uL Nucleated RBC % (auto) 0.0 (0.0-0.2) /100WBC Sodium 139 (135-145) mmol/L Potassium 4.0 (3.3-5.1) mmol/L Chloride 101 (96-108) mmol/L Carbon Dioxide 25 (22-29) mmol/L Anion Gap 17 (12-20) BUN 34 H (9-16) mg/dL Creatinine 0.80 (0.5-1.4) mg/dL Estim Creat Clear Calc 122.8 Estimated GFR > 60 Random Glucose 100 (60-115) mg/dL Lactic Acid 1.6 (0.5-2.0) mmol/L Calcium 9.0 (8.4-10.2) mg/dL Magnesium 2.2 (1.6-2.6) mg/dL Total Bilirubin 0.5 (0.0-1.0) mg/dL AST 18 (5-37) U/L ALT 16 (0-40) U/L Alkaline Phosphatase 72 (39-117) U/L Total Protein 6.7 (6.5-8.0) g/dL Albumin 3.6 (3.5-5.0) g/dL Urine Color Urine Appearance Urine pH (5.0-9.0) Ur Specific [place] (1.005-1.025) Urine Protein (Neg-Trace) mg/dL Urine Glucose (UA) (Negative) mg/dL Urine Ketones (Negative) mg/dL Urine Blood (Negative) Urine Nitrite (Negative) Ur Leukocyte Esterase (Negative) Urine RBC (0-2) /HPF Urine WBC (0-5) /HPF Ur Squamous Epith Cells (0-2) /HPF Urine Bacteria (None Seen) Hyaline Casts (0-2) /LPF 01/03/23 Range/Units 15:00 WBC (4.8-10.8) X10*3/uL RBC (4.60-5.80) X10*6/uL Hgb (14.0-18.0) g/dl Hct (42.0-52.0) % MCV (80.0-98.0) fL MCH (27.0-33.0) pg MCHC (31.0-36.0) g/dl RDW (11.0-16.0) % Plt Count (160-400) X10*3/uL MPV (9.4-12.4) fL Immature Gran % (Auto) (0.0-0.4) % Neut % (Auto) (45-73) % Lymph % (Auto) (20-40) % [place] % (Auto) (2-11) % Eos % (Auto) (0-4) % Baso % (Auto) (0-2) % Lymph # (Auto) (1.2-4.9) X10*3/uL [place] # (Auto) (0.1-1.2) X10*3/uL Eos # (Auto) (0.0-0.4) X10*3/uL Baso # (Auto) (0.0-0.2) X10*3/uL Abs Immat Gran (auto) (0.00-0.03) X10*3/uL Absolute Neuts (auto) (2.0-8.3) x10*3/uL Absolute Nucleated RBC (0.0-0.012) X10*3/uL Nucleated RBC % (auto) (0.0-0.2) /100WBC Sodium (135-145) mmol/L Potassium (3.3-5.1) mmol/L Chloride (96-108) mmol/L Carbon Dioxide (22-29) mmol/L Anion Gap (12-20) BUN (9-16) mg/dL Creatinine (0.5-1.4) mg/dL Estim Creat Clear Calc Estimated GFR Random Glucose (60-115) mg/dL Lactic Acid (0.5-2.0) mmol/L Calcium (8.4-10.2) mg/dL Magnesium (1.6-2.6) mg/dL Total Bilirubin (0.0-1.0) mg/dL AST (5-37) U/L ALT (0-40) U/L Alkaline Phosphatase (39-117) U/L Total Protein (6.5-8.0) g/dL Albumin (3.5-5.0) g/dL Urine Color Yellow Urine Appearance Cloudy Urine pH 5.5 (5.0-9.0) Ur Specific [place] 1.015 (1.005-1.025) Urine Protein Trace (Neg-Trace) mg/dL Urine Glucose (UA) Negative (Negative) mg/dL Urine Ketones Negative (Negative) mg/dL Urine Blood Small (1+) H (Negative) Urine Nitrite Negative (Negative) Ur Leukocyte Esterase Large (3+) H (Negative) Urine RBC 6-10 H (0-2) /HPF Urine WBC >50 H (0-5) /HPF Ur Squamous Epith Cells 0-2 (0-2) /HPF Urine Bacteria None Seen (None Seen) Hyaline Casts 3-5 (0-2) /LPF Independent Interpretation I performed an independent interpretation of an: EKG Interpretation: Vent. Rate: 062 BPM ? ? Atrial Rate: 066 BPM P-R Int: 000 ms? QRS Dur: 124 ms QT Int: 490 ms ? ? ? P-R-T Axes: 000 -63 -03 degrees QTc Int: 497 ms ? Ventricular-paced rhythm Abnormal ECG When compared with ECG of 09-DEC-2022 10:44, Vent. rate has increased BY ? 2 BPM DD/ 1543 Independent Historian Clinical information obtained from an independent historian. History obtained from or confirmed by: EMS (EMS provided additional history and confirmed the history provided by the patient.) Chronic Conditions Patient?s care impacted by: Other (right shoulder pain) Discharge Plan Discharge Clinical Impression: Chronic pain in shoulder Patient Disposition: Home, Self-Care Instructions: Chronic Pain (ED) Additional Instructions: Continue taking your pain medication as precribed. Follow up with your primary care provider. Return to the emergency department immediately if your symptoms worsen or if you develop any dizziness, shortness of breath, difficulty breathing, chest pain, blurry vision, loss of vision, nausea, vomiting, abdominal pain, fever, chills, back pain, or any other complaints. Prescriptions: No Action multivitamin Tablet 1 tab PO DAILY sennosides [senna] 8.6 mg Tablet 17.2 mg PO BEDTIME warfarin 3 mg Tablet 3 mg PO TUTHSA@18 levothyroxine 100 mcg tablet 100 mcg PO DAILY calcium carbonate [Calcium 500] 500 mg calcium (1,250 mg) Tablet 500 mg PO BID ascorbic acid (vitamin C) 500 mg Tablet 500 mg PO BID baclofen 10 mg tablet 20 mg PO BID@09,16 baclofen 10 mg tablet 40 mg PO BEDTIME warfarin 2 mg Tablet 2 mg PO SUMOWEFR@18 docusate sodium [Colace] 100 mg Capsule 200 mg PO DAILY oxybutynin chloride 5 mg tablet 5 mg PO TID fludrocortisone 0.1 mg tablet 0.1 mg PO DAILY calcitriol 0.25 mcg capsule 0.25 mcg PO DAILY metoprolol tartrate 25 mg Tablet 50 mg PO BID Qty: 60 0RF Protocol: Hold for SBP/HR < HOLD for SBP < : 90 HOLD for HR < : 60 cyclobenzaprine 10 mg Tablet 10 mg PO BEDTIME PRN (Reason: Muscle Spasm) Qty: 30 0RF acetaminophen 325 mg Tablet 650 mg PO TID Qty: 60 0RF Rx Instructions: For 10 days then as needed diazepam 2 mg tablet 2 mg PO QID PRN (Reason: Cramps) Qty: 20 0RF cefuroxime axetil 250 mg tablet 250 mg PO BID 7 Days Qty: 14 0RF Referrals: [facility] [place] [facility] [place]] (Call to establish and follow up with a primary care provider. If you already have a primary care provider, please follow up with them.) [facility] [place] [facility] [Provider Group] (Call to establish and follow up with a primary care provider. If you already have a primary care provider, please follow up with them.) [facility] [place] [facility] [Provider Group] (Call to establish and follow up with a primary care provider. If you already have a primary care provider, please follow up with them.) Print Language: Trinidadian
[2023-01-03 12:50] LABS: MANUAL DIFF FLAG NO
[2023-01-03 12:55] LABS: Basophils Percent Auto 0.4 % (0-2); Eosinophils Absolute Auto 0.2 X10*3/uL (0.0-0.4); Eosinophils Percent Auto 1.7 % (0-4); Hemoglobin 11.7 g/dl (14.0-18.0); Imm Gran Abs Auto 0.03 X10*3/uL (0.00-0.03); Imm Gran Pct Auto 0.3 % (0.0-0.4); Lymphocytes Absolute Auto 1.3 X10*3/uL (1.2-4.9); Lymphocytes Percent Auto 12.8 % (20-40); Mean Corpuscular HGB Conc 31.6 g/dl (31.0-36.0); Mean Corpuscular Hemoglobin 27.1 pg (27.0-33.0); Mean Corpuscular Volume 85.8 fL (80.0-98.0); Mean Platelet Volume 9.5 fL (9.4-12.4); Monocytes Absolute Auto 0.7 X10*3/uL (0.1-1.2); Monocytes Percent Auto 6.4 % (2-11); Neutrophils Percent Auto 78.4 % (45-73); Platelet Count 221 X10*3/uL (160-400); Red Blood Count 4.31 X10*6/uL (4.60-5.80); Red Cell Distribution Width 16.1 % (11.0-16.0); White Blood Count 10.2 X10*3/uL (4.8-10.8)
[2023-01-03 13:08] LABS: Lactic Acid 1.6 mmol/L (0.5-2.0)
[2023-01-03 13:13] LABS: Alanine Aminotransferase 16 U/L (0-40); Albumin Level 3.6 g/dL (3.5-5.0); Alkaline Phosphatase 72 U/L (39-117); Anion Gap 17 (12-20); Aspartate Amino Transferase 18 U/L (5-37); Bilirubin Total 0.5 mg/dL (0.0-1.0); Blood Urea Nitrogen 34 mg/dL (9-16); Carbon Dioxide 25 mmol/L (22-29); Chloride 101 mmol/L (96-108); Creatinine Clr Calc Pharmacy 122.8; Estimated Glomerular Filt Rate > 60; Glucose Random 100 mg/dL (60-115); Magnesium 2.2 mg/dL (1.6-2.6); Sodium 139 mmol/L (135-145); Total Protein 6.7 g/dL (6.5-8.0)
[2023-01-03] MEDS: 0.9 % Sodium Chloride 1,000 ML 999 ML IV (13:26)
[2023-01-03] MEDS: traMADoL HCL 50 MG TABLET PO (13:50)
[2023-01-03 15:10] LABS: Appearance Urine Cloudy; Color Urine Yellow; Glucose Urine UA Negative (Negative); Leukocyte Esterase Urine Large (3+) (Negative); Nitrite Urine Negative (Negative); PH 5.5 (5.0-9.0); Specific Gravity - Urine 1.015 (1.005-1.025); UMIC TRIGGER UACC YES; Urine Blood Small (1+) (Negative); Urine Ketones Negative (Negative); Urine Protein Trace mg/dL (Neg-Trace)
[2023-01-03 15:12] LABS: Bacteria Urine None Seen (None Seen); Squamous Epithelial Cell Urine 0-2 /HPF (0-2); UACC Culture Trigger YES; WBC Urine >50 /HPF (0-5)
--- NOTE | 2023-01-03 15:24 | ECG_ITS ---
Test Reason : WEAKNESS Blood Pressure : / mmHG Vent. Rate : 062 BPM Atrial Rate : 066 BPM P-R Int : 000 ms QRS Dur : 124 ms QT Int : 490 ms P-R-T Axes : 000 -63 -03 degrees QTc Int : 497 ms Ventricular-paced rhythm Abnormal ECG When compared with ECG of 09-DEC-2022 10:44, No significant changes seen Referred By: Courtney Martinez Electronically Signed By:BRENDA DENNISON
[2023-01-03] MEDS: Midodrine HCl 10 MG TABLET PO (17:43)
[2023-01-03 17:44] VITALS: BP 101/61; PULSE 720; RESP 14; TEMP 36; O2SAT 96
== END 2023-01-03 18:12 | disposition home or self-care (01) ==
PROVIDERS: Physician Assistant Medical; Emergency Provider Emergency Medicine
DX: G89.29 Other chronic pain (principal); M25.511 Pain in right shoulder; N39.0 Urinary tract infection, site not specified; B96.5 Pseudomonas (aeruginosa) (mallei) (pseudomallei) as the cause of diseases classified elsewhere
CPT/HCPCS: 36415; 80053; 81001; 83605; 83735; 85025; 87040; 87086; 87088; 87186; 93005; 96360; 96361; 99283; 99284; 99285

== ENCOUNTER → 2023-01-03 15:24 | Outpatient (BNV) | payer MEDICARE, MEDICAID, SELFPAY | PROVIDERS: Emergency Provider Emergency Medicine; Visit Provider Internal Medicine | DX: R94.31 Abnormal electrocardiogram [ECG] [EKG] (principal); M62.81 Muscle weakness (generalized) | CPT/HCPCS: 93010 ==

== ENCOUNTER 2023-01-08 19:30 | Inpatient (IN) | payer MEDICARE, MEDICAID, SELFPAY ==
--- NOTE | ~2023-01-08 | XR_ITS ---
EXAMINATION: XR CHEST CLINICAL INFORMATION: Pneumonia? COMPARISON: 12/09/2022 TECHNIQUE: Frontal view of the chest was obtained. FINDINGS: Single AICD lead terminates over the right ventricle. Chronic silhouette is enlarged. Pulmonary vasculature appears normal. There is a small moderate-sized left pleural effusion with associated left lower lobe opacities. Right lung appears clear. No pneumothorax. No acute osseous findings. Osteoarthritis is present in the acromioclavicular and glenohumeral joints. XR/XR chest 1V IMPRESSION: 1. Small to moderate-sized left pleural effusion with associated left lower lobe opacities, likely atelectasis. Superimposed pneumonia is possible. 2. Cardiomegaly.
[2023-01-08 19:38] VITALS: BP 220/98; BP 70/42; PULSE 68; PULSE 88; RESP 16; TEMP 36.9; O2SAT 95
--- NOTE | 2023-01-08 20:28 | ECG_ITS ---
Test Reason : O2 91% Blood Pressure : / mmHG Vent. Rate : 061 BPM Atrial Rate : 060 BPM P-R Int : 000 ms QRS Dur : 122 ms QT Int : 424 ms P-R-T Axes : 000 -60 033 degrees QTc Int : 426 ms Ventricular-paced rhythm Abnormal ECG When compared with ECG of 03-JAN-2023 15:43, No significant change was found Referred By: Lloyd Waggoner Electronically Signed By:Edgar Jaime
[2023-01-08 21:02] LABS: MANUAL DIFF FLAG NO
[2023-01-08 21:04] LABS: Basophils Percent Auto 0.4 % (0-2); Eosinophils Absolute Auto 0.3 X10*3/uL (0.0-0.4); Eosinophils Percent Auto 3.2 % (0-4); Hemoglobin 12.3 g/dl (14.0-18.0); Imm Gran Abs Auto 0.08 X10*3/uL (0.00-0.03); Imm Gran Pct Auto 0.8 % (0.0-0.4); Lymphocytes Absolute Auto 2.8 X10*3/uL (1.2-4.9); Lymphocytes Percent Auto 26.4 % (20-40); Mean Corpuscular HGB Conc 32.4 g/dl (31.0-36.0); Mean Corpuscular Hemoglobin 27.2 pg (27.0-33.0); Mean Corpuscular Volume 84.1 fL (80.0-98.0); Mean Platelet Volume 9.3 fL (9.4-12.4); Monocytes Absolute Auto 0.8 X10*3/uL (0.1-1.2); Monocytes Percent Auto 7.4 % (2-11); Neutrophils Absolute Auto 6.5 x10*3/uL (2.0-8.3); Neutrophils Percent Auto 61.8 % (45-73); Platelet Count 325 X10*3/uL (160-400); Red Blood Count 4.52 X10*6/uL (4.60-5.80); White Blood Count 10.5 X10*3/uL (4.8-10.8)
--- NOTE | 2023-01-08 21:12 | MHC.EDTECH ---
600 cc urine drained from suprapubic catheter
[2023-01-08 21:23] LABS: Lactic Acid 1.7 mmol/L (0.5-2.0)
--- NOTE | 2023-01-08 21:23 | ED.MALEGU ---
HPI - Male Genitourinary General Chief complaint: Urogenital-Male Stated complaint: mr Time Seen by Provider: 01/08/23 20:20 Source: patient Mode of arrival: ambulatory Limitations: no limitations History of Present Illness HPI Narrative: 67 yold male with pmh of Afib and is paralysis due to cervical fracture presents to the ED for admission for IV antibiotics dude to growth Bacterias in Urine culture. patient himself is asympoamtic. Patient states no fever, chills, nausea, vomitting, abdominal pain, chest pain, or shorntess of breath. Related Data Home Medications Medication Instructions Recorded Confirmed ascorbic acid (vitamin C) 500 mg 500 mg PO BID 03/23/20 03/23/20 tablet baclofen 10 mg tablet 20 mg PO BID@,16 03/23/20 03/23/20 baclofen 10 mg tablet 40 mg PO BEDTIME 03/23/20 03/23/20 calcitriol 0.25 mcg capsule 0.25 mcg PO DAILY 03/23/20 03/23/20 calcium carbonate 500 mg calcium 500 mg PO BID 03/23/20 03/23/20 (1,250 mg) tablet (Calcium 500) docusate sodium 100 mg capsule 200 mg PO DAILY 03/23/20 03/23/20 (Colace) fludrocortisone 0.1 mg tablet 0.1 mg PO DAILY 03/23/20 03/23/20 levothyroxine 100 mcg tablet 100 mcg PO DAILY 03/23/20 03/23/20 multivitamin 1 tab PO DAILY 03/23/20 03/23/20 oxybutynin chloride 5 mg tablet 5 mg PO TID 03/23/20 03/23/20 sennosides 8.6 mg tablet (senna) 17.2 mg PO BEDTIME 03/23/20 03/23/20 warfarin 2 mg tablet 2 mg PO SUMOWEFR@18 03/23/20 03/23/20 warfarin 3 mg tablet 3 mg PO TUTHSA@18 03/23/20 03/23/20 Previous Rx's Medication Instructions Recorded metoprolol tartrate 25 mg tablet 50 mg PO BID #60 tabs 03/27/20 acetaminophen 325 mg tablet 650 mg PO TID #60 tabs 03/29/20 cyclobenzaprine 10 mg tablet 10 mg PO BEDTIME PRN Muscle Spasm 03/29/20 #30 tabs diazepam 2 mg tablet 2 mg PO QID PRN Cramps #20 tabs 03/29/20 cefuroxime axetil 250 mg tablet 250 mg PO BID 7 days #14 tabs 12/09/22 tramadol 50 mg tablet 50 mg PO Q6H PRN severe pain 01/03/23 (scale score 7-10) #12 tabs Allergies Allergy/AdvReac Type Severity Reaction Status Date / Time dicloxacillin [From DYNAPEN] Allergy Unknown UNKNOWN Verified 12/09/22 09:26 ofloxacin [From FLOXIN] AdvReac Intermediate UPSET Verified 12/09/22 09:26 STOMACH penicillin V AdvReac Unknown Abdominal Verified 12/09/22 09:26 Pain Review of Systems Review of Systems: admissions for IV antibiotics Yes all other systems are reviewed and are negative [facility] Past Medical History Medical History Atrial fibrillation Autonomic dysfunction Hernia Hypothyroidism Irreducible left inguinal hernia Spasms of the hands or feet Spinal cord injury Surgical History H/O hemorrhoidectomy H/O hernia repair H/O thyroidectomy S/P IVC filter S/P tendon repair Family History Family History Sister Diabetes mellitus Social History Social History Household Members: Family Housing: House Do you presently have visiting nurse or other home services: Yes Alcohol intake: never Smoked in Last 30 Days: No Use of substances other than those prescribed or required for medical reasons: No Advance Directives: No Advance Directives Information Provided: No service: No Physical Exam Vital Signs: Vital Signs: Last Vital Signs Temp 98.4 F 01/09/23 00:27 Pulse 61 01/09/23 00:27 Resp 16 01/09/23 00:27 BP 159/91 H 01/09/23 00:27 Pulse Ox 96 01/09/23 00:27 O2 Del Method Room Air 01/09/23 00:27 O2 Flow Rate 2 01/08/23 23:56 BMI result Body Mass Index 30.0 Const: General: cooperative, healthy appearing, comfortable, no acute distress, well developed, alert, awake and Physically active HEENT: Head: Yes normal to inspection, Yes No palpable skull fracture present, Yes normocephalic and Yes atraumatic Eyes: General: appearance normal, both eyes and all related structures Neck: Neck: Yes normal visual inspection, Yes full ROM, Yes no lymphadenopathy, Yes no meningeal signs, Yes trachea midline, Yes supple, No anterior neck swelling and No tender Chest: Chest palpation & inspection: normal inspection of the chest and normal palpation of entire chest wall Resp: Effort & Inspection: normal respiratory effort and able to speak in complete sentences Auscultation: clear to auscultation bilaterally Cardio: Jugular venous distension: no JVD Heart sounds: S1 normal heart sound present and S2 normal heart sound present GI: Inspection: Yes normal to inspection and No abdominal wall ecchymosis Palpation (GI): Soft to palpation, not firm, nontender, no guarding and not rigid : General: No CVA tenderness and Yes no CVA tenderness Back/Spine/Pelvis: Back: no CVA tenderness, No CVA tenderness and No back tenderness Skin: General skin exam: no rashes or lesions noted and elasticity normal Neuro: Other: Paralyzed due to neck fracture General: no meningeal signs Extrem: Other: have sensation but can'c move them Psych: Appearance: grossly normal and well kempt Medications Administered Discontinued Medications Generic Name Dose Route Start Last Admin Trade Name Freq PRN Reason Stop Dose Admin Meropenem 1 gm/ Sodium 100 mls @ 200 mls/hr 01/08/23 21:21 01/08/23 22:32 Chloride IV 01/08/23 21:50 Infused ONCE ONE Infusion Sodium Chloride 1,000 mls @ 999 mls/hr 01/08/23 22:39 01/09/23 00:10 Ns IV 01/08/23 23:39 Infused .Q1H1M STA Infusion Sodium Chloride 1,000 mls @ 999 mls/hr 01/08/23 22:40 01/09/23 00:10 Ns IV 01/08/23 23:40 Infused .Q1H1M STA Infusion Midodrine 10 mg 01/08/23 22:41 01/08/23 23:04 Midodrine Hcl 10 Mg Tablet PO 01/08/23 22:42 10 mg ONCE ONE Administration Medical Decision Making Medical Decision Making MDM Narrative: 57-year-old male history of AFib and paralyzed due to cervical spine fracture presents to ED for admission for IV antibiotics for bacteria grew in urine culture. Patient is asymptomatic. Patient hypertensive on monitor. Patient was hypoxic to 90% on room air on monitors the patient x-ray EKG ordered. Repeat labs including lactic acid urine culture urine ordered. With hospitalist Dr. Lindquist recommends starting on meropenem. X-ray shows possible pneumonia. 01:30. Patient be admitted for pneumonia and UTI Differential Diagnosis Differential Diagnoses: The differential diagnosis associated with the presentation includes Admission/Observation Consideration of admission/observation: Escalation of care including admission/observation considered Consult Healthcare Provider Management of the patient was discussed with: Audio Visual Facilities Engineer (Dr. Stack Hospitalist) Lab Data MDM Lab Attestation statement: I reviewed the patient's lab results. 01/08/23 20:54 01/08/23 20:54 Labs: Lab Results 01/08/23 01/08/23 01/08/23 Range/Units 20:52 20:54 20:54 WBC 10.5 (4.8-10.8) X10*3/uL RBC 4.52 L (4.60-5.80) X10*6/uL Hgb 12.3 L (14.0-18.0) g/dl Hct 38.0 L (42.0-52.0) % MCV 84.1 (80.0-98.0) fL MCH 27.2 (27.0-33.0) pg MCHC 32.4 (31.0-36.0) g/dl RDW 16.0 (11.0-16.0) % Plt Count 325 D (160-400) X10*3/uL MPV 9.3 L (9.4-12.4) fL Immature Gran % (Auto) 0.8 H (0.0-0.4) % Neut % (Auto) 61.8 (45-73) % Lymph % (Auto) 26.4 (20-40) % [place] % (Auto) 7.4 (2-11) % Eos % (Auto) 3.2 (0-4) % Baso % (Auto) 0.4 (0-2) % Lymph # (Auto) 2.8 (1.2-4.9) X10*3/uL [place] # (Auto) 0.8 (0.1-1.2) X10*3/uL Eos # (Auto) 0.3 (0.0-0.4) X10*3/uL Baso # (Auto) 0.0 (0.0-0.2) X10*3/uL Abs Immat Gran (auto) 0.08 H (0.00-0.03) X10*3/uL Absolute Neuts (auto) 6.5 (2.0-8.3) x10*3/uL Absolute Nucleated RBC 0.000 (0.0-0.012) X10*3/uL Nucleated RBC % (auto) 0.0 (0.0-0.2) /100WBC PT 33.3 H (11.1-13.3) SEC INR 2.7 H (0.9-1.1) APTT 40.6 H (26.0-36.4) SEC Sodium 137 (135-145) mmol/L Potassium 4.5 (3.3-5.1) mmol/L Chloride 99 (96-108) mmol/L Carbon Dioxide 25 (22-29) mmol/L Anion Gap 18 (12-20) BUN 14 (9-16) mg/dL Creatinine 0.72 (0.5-1.4) mg/dL Estim Creat Clear Calc 138.1 Estimated GFR > 60 Random Glucose 109 (60-115) mg/dL Lactic Acid (0.5-2.0) mmol/L Calcium 9.7 D (8.4-10.2) mg/dL Total Bilirubin 0.4 (0.0-1.0) mg/dL AST 22 (5-37) U/L ALT 20 (0-40) U/L Alkaline Phosphatase 75 (39-117) U/L B-Natriuretic Peptide (<100) pg/mL Total Protein 7.7 (6.5-8.0) g/dL Albumin 4.1 (3.5-5.0) g/dL Urine Color Urine Appearance Urine pH (5.0-9.0) Ur Specific [place] (1.005-1.025) Urine Protein (Neg-Trace) mg/dL Urine Glucose (UA) (Negative) mg/dL Urine Ketones (Negative) mg/dL Urine Blood (Negative) Urine Nitrite (Negative) Ur Leukocyte Esterase (Negative) Urine RBC (0-2) /HPF Urine WBC (0-5) /HPF Ur Squamous Epith Cells (0-2) /HPF Urine Bacteria (None Seen) Hyaline Casts (0-2) /LPF 01/08/23 01/08/23 01/08/23 Range/Units 20:54 20:54 21:08 WBC (4.8-10.8) X10*3/uL RBC (4.60-5.80) X10*6/uL Hgb (14.0-18.0) g/dl Hct (42.0-52.0) % MCV (80.0-98.0) fL MCH (27.0-33.0) pg MCHC (31.0-36.0) g/dl RDW (11.0-16.0) % Plt Count (160-400) X10*3/uL MPV (9.4-12.4) fL Immature Gran % (Auto) (0.0-0.4) % Neut % (Auto) (45-73) % Lymph % (Auto) (20-40) % [place] % (Auto) (2-11) % Eos % (Auto) (0-4) % Baso % (Auto) (0-2) % Lymph # (Auto) (1.2-4.9) X10*3/uL [place] # (Auto) (0.1-1.2) X10*3/uL Eos # (Auto) (0.0-0.4) X10*3/uL Baso # (Auto) (0.0-0.2) X10*3/uL Abs Immat Gran (auto) (0.00-0.03) X10*3/uL Absolute Neuts (auto) (2.0-8.3) x10*3/uL Absolute Nucleated RBC (0.0-0.012) X10*3/uL Nucleated RBC % (auto) (0.0-0.2) /100WBC PT (11.1-13.3) SEC INR (0.9-1.1) APTT (26.0-36.4) SEC Sodium (135-145) mmol/L Potassium (3.3-5.1) mmol/L Chloride (96-108) mmol/L Carbon Dioxide (22-29) mmol/L Anion Gap (12-20) BUN (9-16) mg/dL Creatinine (0.5-1.4) mg/dL Estim Creat Clear Calc Estimated GFR Random Glucose (60-115) mg/dL Lactic Acid 1.7 (0.5-2.0) mmol/L Calcium (8.4-10.2) mg/dL Total Bilirubin (0.0-1.0) mg/dL AST (5-37) U/L ALT (0-40) U/L Alkaline Phosphatase (39-117) U/L B-Natriuretic Peptide 146 H (<100) pg/mL Total Protein (6.5-8.0) g/dL Albumin (3.5-5.0) g/dL Urine Color Yellow Urine Appearance Cloudy Urine pH 8.5 (5.0-9.0) Ur Specific [place] <= 1.005 (1.005-1.025) Urine Protein 30 (1+) H (Neg-Trace) mg/dL Urine Glucose (UA) Negative (Negative) mg/dL Urine Ketones Negative (Negative) mg/dL Urine Blood Negative (Negative) Urine Nitrite Positive H (Negative) Ur Leukocyte Esterase Large (3+) H (Negative) Urine RBC 0-2 (0-2) /HPF Urine WBC 21-50 H (0-5) /HPF Ur Squamous Epith Cells 0-2 (0-2) /HPF Urine Bacteria 4+ (None Seen) Hyaline Casts 3-5 (0-2) /LPF Independent Interpretation I performed an independent interpretation of an: EKG (Ventricular paced rhythm. Ventricular rate 61. QRS 122. QTC 426. Negative strep) and Plain X-Ray Radiology Impression Discussion of test interpretation with radiology: I have reviewed the radiologist's reading. Independent Historian Clinical information obtained from an independent historian. History obtained from or confirmed by: Other (penitentiary) External Record Review External record reviewed: Other (Prior ED visit) Discharge Plan Discharge Clinical Impression: Urinary tract infection, Pneumonia Patient Disposition: Admitted As Inpatient
[2023-01-08 21:24] LABS: Appearance Urine Cloudy; Color Urine Yellow; Glucose Urine UA Negative (Negative); Leukocyte Esterase Urine Large (3+) (Negative); Nitrite Urine Positive (Negative); PH 8.5 (5.0-9.0); Specific Gravity - Urine <= 1.005 (1.005-1.025); UMIC TRIGGER UACC YES; Urine Blood Negative (Negative); Urine Ketones Negative (Negative); Urine Protein 30 (1+) mg/dL (Neg-Trace)
[2023-01-08 21:25] LABS: INTERNATIONAL NORM RATIO 2.7 (0.9-1.1); Prothrombin Time 33.3 SEC (11.1-13.3)
[2023-01-08 21:28] LABS: Partial Thromboplastin Time 40.6 SEC (26.0-36.4)
[2023-01-08 21:29] LABS: Bacteria Urine 4+ (None Seen); Squamous Epithelial Cell Urine 0-2 /HPF (0-2); UACC Culture Trigger YES; WBC Urine 21-50 /HPF (0-5)
[2023-01-08 21:30] LABS: Alanine Aminotransferase 20 U/L (0-40); Albumin Level 4.1 g/dL (3.5-5.0); Alkaline Phosphatase 75 U/L (39-117); Anion Gap 18 (12-20); Aspartate Amino Transferase 22 U/L (5-37); Bilirubin Total 0.4 mg/dL (0.0-1.0); Blood Urea Nitrogen 14 mg/dL (9-16); Calcium 9.7 mg/dL (8.4-10.2); Carbon Dioxide 25 mmol/L (22-29); Chloride 99 mmol/L (96-108); Creatinine Clr Calc Pharmacy 138.1; Estimated Glomerular Filt Rate > 60; Glucose Random 109 mg/dL (60-115); Potassium 4.5 mmol/L (3.3-5.1); Sodium 137 mmol/L (135-145); Total Protein 7.7 g/dL (6.5-8.0)
[2023-01-08 21:57] LABS: RBC Urine 0-2 /HPF (0-2)
[2023-01-08 22:15] LABS: B Type Natriuretic Peptide 146 pg/mL (<100)
[2023-01-08] MEDS: 0.9 % Sodium Chloride 1,000 ML 999 ML IV ×2 (22:59→23:04)
[2023-01-08] MEDS: Midodrine HCl 10 MG TABLET PO (23:04)
[2023-01-08 23:56] VITALS: BP 172/96; PULSE 77; RESP 16; TEMP 36.9; O2SAT 96
[2023-01-09 00:27] VITALS: BP 159/91; PULSE 61; RESP 16; TEMP 36.9; O2SAT 96
--- NOTE | 2023-01-09 00:28 | MHC.EDTECH ---
This tech assumed care of pt at 2300, hourly rounds completed and vitals were obtained. call becerra within reach
--- NOTE | 2023-01-09 01:24 | P.HPHOSP_ITS ---
History of Present Illness Date of Service: 01/09/23 Chief Complaint: Urine infection This is a 67-year-old male with pertinent history of AFib on Coumadin, C5-C6 spinal cord injury with resulting lower extremity paralysis and status post colostomy and suprapubic catheter, hypothyroidism was brought to the emergency department for concerns of urinary infection and IV antibiotics. Patient was seen in the ER on 01/03 for shoulder pain. UA was obtained which grew Pseudomonas and Morganella morganii. Patient was called back to the ER for IV antibiotics. Patient states he has a chronic suprapubic catheter and has no feelings below umbilicus. No fevers or chills. He denies any complaints at the time of exami nation. No chest discomfort, palpitations, shortness breath. Review of Systems Constitutional: Constitutional: Reports no additional constitutional complaints Cardiovascular: Cardiovascular: Reports no additional cardiovascular complaints Respiratory: Respiratory: Reports no additional respiratory complaints Gastrointestinal: Gastrointestinal: Reports no additional gastrointestinal complaints Genitourinary: Genitourinary: Reports no additional male genitourinary complaints [facility] Medical History Atrial fibrillation Autonomic dysfunction Hernia Hypothyroidism Irreducible left inguinal hernia Spasms of the hands or feet Spinal cord injury Family History Sister Diabetes mellitus Surgical History H/O hemorrhoidectomy H/O hernia repair H/O thyroidectomy S/P IVC filter S/P tendon repair Social History Household Members: Family Housing: House Do you presently have visiting nurse or other home services: Yes Alcohol intake: never Smoked in Last 30 Days: No Use of substances other than those prescribed or required for medical reasons: No Advance Directives: No Advance Directives Information Provided: No service: No Meds Allergies Allergy/AdvReac Type Severity Reaction Status Date / Time dicloxacillin [From DYNAPEN] Allergy Unknown UNKNOWN Verified 12/09/22 09:26 ofloxacin [From FLOXIN] AdvReac Intermediate UPSET Verified 12/09/22 09:26 STOMACH penicillin V AdvReac Unknown Abdominal Verified 12/09/22 09:26 Pain Active Medications: Current Medications Acetaminophen (Acetaminophen 325 Mg Tablet) 650 mg PO Q6H PRN PRN Reason: Pain, Mild (Pain Scale 1-3) Melatonin (Melatonin 3 Mg Tablet) 6 mg PO BEDTIME PRN PRN Reason: Insomnia Ondansetron HCl (Ondansetron Hcl 4 Mg/2 Ml Vial) 4 mg IVPUSH Q8H PRN PRN Reason: Nausea and Vomiting Pharmacy Consult (Consult Rx Perform Med Rec) 1 each MISCELLANE ONCE PRN PRN Reason: Consult order Sodium Chloride (0.9 % Sodium Chloride Flush 3 Ml Syringe) [facility] Medications Medication Instructions Recorded Confirmed Last Taken Type ascorbic acid (vitamin C) 500 mg 500 mg PO BID 03/23/20 03/23/20 03/23/20 His tory tablet baclofen 10 mg tablet 20 mg PO BID@,16 03/23/20 03/23/20 03/23/20 History baclofen 10 mg tablet 40 mg PO BEDTIME 03/23/20 03/23/20 03/23/20 History calcitriol 0.25 mcg capsule 0.25 mcg PO DAILY 03/23/20 03/23/20 03/23/20 History calcium carbonate 500 mg calcium 500 mg PO BID 03/23/20 03/23/20 03/23/20 History (1,250 mg) tablet (Calcium 500) docusate sodium 100 mg capsule 200 mg PO DAILY 03/23/20 03/23/20 03/23/20 History (Colace) fludrocortisone 0.1 mg tablet 0.1 mg PO DAILY 03/23/20 03/23/20 03/23/20 History levothyroxine 100 mcg tablet 100 mcg PO DAILY 03/23/20 03/23/20 03/23/20 History multivitamin 1 tab PO DAILY 03/23/20 03/23/20 03/23/20 History oxybutynin chloride 5 mg tablet 5 mg PO TID 03/23/20 03/23/20 03/23/20 History sennosides 8.6 mg tablet (senna) 17.2 mg PO BEDTIME 03/23/20 03/23/20 03/23/20 History warfarin 2 mg tablet 2 mg PO SUMOWEFR@18 03/23/20 03/23/20 03/23/20 History warfarin 3 mg tablet 3 mg PO FINA@18 03/23/20 03/23/20 03/23/20 History Physical Exam Vital Signs and Narrative: Vital Signs: Last Vital Signs Temp 98.4 F 01/09/23 00:27 Pulse 61 01/09/23 00:27 Resp 16 01/09/23 00:27 BP 159/91 H 01/09/23 00:27 Pulse Ox 96 01/09/23 00:27 O2 Del Method Room Air 01/09/23 00:27 O2 Flow Rate 2 01/08/23 23:56 BMI result Body Mass Index 30.0 Middle-aged male lying in bed in no distress Neck supple, no JVD Irregularly irregular, S1-S2 heard Regular breath sounds bilaterally, no wheezing or crackles appreciated Abdomen soft nontender, no guarding, no rigidity, suprapubic catheter in place Patient is awake, alert and oriented to self, place, time and person ; no sensation below umbilicus, bilateral lower extremity paralysis Psych: Normal mood Results Labs 01/08/23 20:54 01/08/23 20:54 Labs: Laboratory Results - last 24 hr 01/08/23 01/08/23 01/08/23 20:52 20:54 20:54 MCV 84.1 MCH 27.2 MCHC 32.4 RDW 16.0 Plt Count 325 D MPV 9.3 L Immature Gran % (Auto) 0.8 H Neut % (Auto) 61.8 Lymph % (Auto) 26.4 [place] % (Auto) 7.4 Eos % (Auto) 3.2 Baso % (Auto) 0.4 Lymph # (Auto) 2.8 [place] # (Auto) 0.8 Eos # (Auto) 0.3 Baso # (Auto) 0.0 Abs Immat Gran (auto) 0.08 H Absolute Neuts (auto) 6.5 Absolute Nucleated RBC 0.000 Nucleated RBC % (auto) 0.0 PT 33.3 H INR 2.7 H APTT 40.6 H Anion Gap 18 Estim Creat Clear Calc 138.1 Estimated GFR > 60 Random Glucose 109 Lactic Acid Calcium 9.7 D Total Bilirubin 0.4 AST 22 ALT 20 Alkaline Phosphatase 75 B-Natriuretic Peptide Total Protein 7.7 Albumin 4.1 Urine Color Urine Appearance Urine pH Ur Specific [place] Urine Protein Urine Glucose (UA) Urine Ketones Urine Blood Urine Nitrite Ur Leukocyte Esterase Urine RBC Urine WBC Ur Squamous Epith Cells Urine Bacteria Hyaline Casts 01/08/23 01/08/23 01/08/23 20:54 20:54 21:08 MCV MCH MCHC RDW Plt Count MPV Immature Gran % (Auto) Neut % (Auto) Lymph % (Auto) [place] % (Auto) Eos % (Auto) Baso % (Auto) Lymph # (Auto) [place] # (Auto) Eos # (Auto) Baso # (Auto) Abs Immat Gran (auto) Absolute Neuts (auto) Absolute Nucleated RBC Nucleated RBC % (auto) PT INR APTT Anion Gap Estim Creat Clear Calc Estimated GFR Random Glucose Lactic Acid 1.7 Calcium Total Bilirubin AST ALT Alkaline Phosphatase B-Natriuretic Peptide 146 H Total Protein Albumin Urine Color Yellow Urine Appearance Cloudy Urine pH 8.5 Ur Specific [place] <= 1.005 Urine Protein 30 (1+) H Urine Glucose (UA) Negative Urine Ketones Negative Urine Blood Negative Urine Nitrite Positive H Ur Leukocyte Esterase Large (3+) H Urine RBC 0-2 Urine WBC 21-50 H Ur Squamous Epith Cells 0-2 Urine Bacteria 4+ Hyaline Casts 3-5 Imaging Radiologist's Impressions: Impressions Chest X-Ray 01/08/23 20:50 IMPRESSION: 1. Small to moderate-sized left pleural effusion with associated left lower lobe opacities, likely atelectasis. Superimposed pneumonia is possible. 2. Cardiomegaly. Assessment and Plan (1) Urinary tract infection: Status: Acute Plan This is a 67-year-old male with pertinent history of AFib on Coumadin, C5-C6 spinal cord injury with resulting lower extremity paralysis and status post colostomy and suprapubic catheter, hypothyroidism was brought to the emergency department for concerns of urinary infection and IV antibiotics. #.?Acute UTI: Urine with Pseudomonas and Morganella. Unclear significance. Will treat empirically and consult Infectious Disease for assistance. Blood culture and repeat urine culture obtained #. AFib on Coumadin. Rate controlled in the ER #. Hypothyroidism. On Synthroid #. C5-C6 spinal cord injury. Continue baclofen Med rec pending DVT prophylaxis: Warfarin Full Code Admit as inpatient and will require two night minimum hospital stay for IV antibiotics Time Spent With Patient Time: Total time managing care of this patient today ____ minutes. Quality Stroke Does the patient have a stroke diagnosis?: No VTE Prior VTE?: No VTE Risk Level:: Medical - moderate - high VTE Device Contraindication: Treatment Not Indicated VTE Drug Contraindication: N/A - Med Ordered
[2023-01-09] MEDS: traMADoL HCL 50 MG TABLET PO ×3 (02:23→20:57)
[2023-01-09 04:25] VITALS: BP 129/70; PULSE 61; RESP 16; TEMP 37; O2SAT 99
--- NOTE | 2023-01-09 04:25 | MHC.EDTECH ---
Hourly rounds completed,vitals were taken and belongings list completed. Call becerra within reach
[2023-01-09 05:07] LABS: MANUAL DIFF FLAG NO
--- NOTE | 2023-01-09 05:12 | MHC.EDTECH ---
Hourly rounds completed,vitals were taken, Patient was cleaned and repositioned,patient has multiple wounds on bottom and groin area is very raw and red,RN was made aware and is at bedside. Patient was placed into hospital bed for comfort with multiple pillows and is on his right side at this time. [place] was emptied and had an output of 1100CC. Call becerra within reach and belongings list was completed and copy in chart.
[2023-01-09 05:16] LABS: Basophils Absolute Auto 0.1 X10*3/uL (0.0-0.2); Basophils Percent Auto 0.4 % (0-2); Eosinophils Absolute Auto 0.3 X10*3/uL (0.0-0.4); Eosinophils Percent Auto 2.2 % (0-4); Hematocrit 39.8 % (42.0-52.0); Hemoglobin 12.8 g/dl (14.0-18.0); Imm Gran Pct Auto 0.8 % (0.0-0.4); Lymphocytes Absolute Auto 3.5 X10*3/uL (1.2-4.9); Lymphocytes Percent Auto 29.4 % (20-40); Mean Corpuscular HGB Conc 32.2 g/dl (31.0-36.0); Mean Corpuscular Hemoglobin 27.2 pg (27.0-33.0); Mean Corpuscular Volume 84.5 fL (80.0-98.0); Monocytes Absolute Auto 0.8 X10*3/uL (0.1-1.2); Monocytes Percent Auto 6.4 % (2-11); Neutrophils Absolute Auto 7.3 x10*3/uL (2.0-8.3); Neutrophils Percent Auto 60.8 % (45-73); Platelet Count 323 X10*3/uL (160-400); Red Blood Count 4.71 X10*6/uL (4.60-5.80); Red Cell Distribution Width 15.9 % (11.0-16.0)
[2023-01-09 05:32] LABS: Anion Gap 21 (12-20); Blood Urea Nitrogen 12 mg/dL (9-16); Calcium 9.6 mg/dL (8.4-10.2); Carbon Dioxide 20 mmol/L (22-29); Chloride 102 mmol/L (96-108); Creatinine Clr Calc Pharmacy 144.1; Estimated Glomerular Filt Rate > 60; Glucose Random 112 mg/dL (60-115); Potassium 4.5 mmol/L (3.3-5.1); Sodium 138 mmol/L (135-145)
--- NOTE | 2023-01-09 06:19 | MHC.EDTECH ---
Hourly rounds completed,,Pt repositioned to comfort and call becerra within reach.
[2023-01-09 07:18] VITALS: BP 160/88; PULSE 60; RESP 18; O2SAT 99
[2023-01-09] MEDS: 0.9 % Sodium Chloride Flush 3 ML SYRINGE IVFLUSH ×3 (07:21→20:10)
[2023-01-09 07:25] VITALS: O2SAT 95
--- NOTE | 2023-01-09 09:03 | PHA.MEDREC ---
Pharmacy Consult ? Medication Reconciliation Pharmacy has completed the medication reconciliation. List from [facility]. List did not have specific doses of warfarin, patient cannot recall doses. Patient is currently off warfarin due to procedure at the moment. Patient said someone from [facility] will be in later today, I plan to speak to this person once they are here
--- NOTE | 2023-01-09 09:39 | PC.NURSE ---
Dr Garcia to bedside, aware of BP and wound consult needed. Awaiting staff to bring med list and fan at home.
--- NOTE | 2023-01-09 10:54 | PC.NURSE ---
med rec. just done by pharmacy. notified Dr. Marcos will order meds. pt pain level assessed; 12/12 R. shoulder pain; md notified; waiting further orders.
--- NOTE | 2023-01-09 11:01 | PM.EVENT ---
Event Note Date of Service: 01/09/23 Event Note: admitted this morning for acute UTI patient awake alert offers no acute complaints requesting for wound care consult for chronic sacral decubitus was supposed to be seen and wound care clinic today. 67-year-old male with pertinent history of AFib on Coumadin, C5-C6 spinal cord injury with resulting lower extremity paralysis and status post colostomy and suprapubic catheter, hypothyroidism was brought to the emergency department for concerns of urinary infection and IV antibiotics. #.?Acute UTI:? Urine with Pseudomonas and Morganella.? Unclear significance on IV meropenem day 1,Infectious Disease consult pending follow blood and urine cultures. #.? AFib on Coumadin.? Rate controlled continue Coumadin INR therapeutic at 2.7, follow PT INR #.? Hypothyroidism.? On Synthroid #.? C5-C6 spinal cord injury.? Continue baclofen, stool softeners. # chronic sacral decubitus ulcer obtain wound consult # left shoulder pain on Tylenol with no significant improvement place on Ultram prn. DVT prophylaxis: Warfarin Full Code Admit as inpatient and will require two night minimum hospital stay for IV antibiotics Time Spent With Patient Time: Total time managing care of this patient today ____ minutes.
--- NOTE | 2023-01-09 11:36 | PC.NURSE ---
report given to navi cameron.
[2023-01-09] MEDS: Nystatin Ointment 15 GM TUBE 1 APPL TOPICAL (11:51)
--- NOTE | 2023-01-09 14:28 | MHC.CLN ---
NUTRITION CONSULT FOR SACRAL WOUND. DIET=REGULAR. AGREES TO ENSURE MAX PROTEIN ONE TIME DAILY. SUPPLEMENT PROVIDES 150 KCALS, 30 G PROTEIN. DOES NOT CURRENTLY TAKE SUPPLEMENT. WEIGHT GAIN IS NOT DESIRABLE. ENSURE MAX PROTEIN IS HIGH PROTEIN, LOWER CALORIE PRODUCT. REPORTS THAT CURRENTLY NOT EATING WELL. FOLLOW FOR WOUND HEALING AND INTAKE.
[2023-01-09] MEDS: Midodrine HCl 10 MG TABLET PO (14:48)
[2023-01-09] MEDS: levoFLOXacin 750 MG TABLET PO (14:48)
[2023-01-09] MEDS: Baclofen 20 MG TABLET PO ×2 (14:48→20:02)
[2023-01-09 15:04] VITALS: BP 156/70; PULSE 72; RESP 18; TEMP 36.6; O2SAT 97
--- NOTE | 2023-01-09 15:04 | P.CNID_ITS ---
History of Present Illness Data of Consult Service Date: 01/09/23 Requesting physician: Marisabel Garcia Primary Care Provider: Yulia Mckeon MD HPI Reason for consult: dysuria,UTI He presents with abdominal cramps as well as malodorous urine with cloudiness for last week. He has no fever or chills. He feels as though he has UTI. His culture shows Pseudomonas as well as morganella morganii. He has chronic cath and C5-C6 paraplegia with ostomy. [facility] Past Medical History Medical History Atrial fibrillation Autonomic dysfunction Hernia Hypothyroidism Irreducible left inguinal hernia Spasms of the hands or feet Spinal cord injury Family History Family History Sister Diabetes mellitus Family history: reviewed and not pertinent Surgical History Surgical History H/O hemorrhoidectomy H/O hernia repair H/O thyroidectomy S/P IVC filter S/P tendon repair Social History Social History Household Members: Other Housing: Other Housing Other:: [facility] [place] Do you presently have visiting nurse or other home services: Yes (wound care) Alcohol intake: never Patient Tobacco Use Status: Never used Tobacco Advance Directives Date on File: 01/09/23 service: No Meds Allergies Allergy/AdvReac Type Severity Reaction Status Date / Time dicloxacillin [From DYNAPEN] Allergy Unknown UNKNOWN Verified 12/09/22 09:26 ofloxacin [From FLOXIN] AdvReac Intermediate UPSET Verified 12/09/22 09:26 STOMACH penicillin V AdvReac Unknown Abdominal Verified 12/09/22 09:26 Pain Active Medications: Current Medications Acetaminophen (Acetaminophen 325 Mg Tablet) 650 mg PO Q6H PRN PRN Reason: Pain, Mild (Pain Scale 1-3) Acetaminophen (Acetaminophen 325 Mg Tablet) 650 mg PO TID REPLACED BY [facility] Last Admin: 01/09/23 14:49 Dose: Not Given Ascorbic Acid (Ascorbic Acid 500 Mg Tablet) 500 mg PO BID REPLACED BY [facility] Baclofen (Baclofen 20 Mg Tablet) 20 mg PO TID REPLACED BY [facility] Last Admin: 01/09/23 14:48 Dose: 20 mg Baclofen (Baclofen 20 Mg Tablet) 40 mg PO BEDTIME REPLACED BY [facility] Calcitriol (Calcitriol 0.25 Mcg Capsule) 0.25 mcg PO DAILY REPLACED BY [facility] Calcium Carbonate (Calcium Carbonate 500 Mg Tablet) 500 mg PO BID REPLACED BY [facility] Dicyclomine HCl (Dicyclomine Hcl 10 Mg Capsule) 10 mg PO Q6H PRN PRN Reason: Stomach Upset Docusate Sodium (Docusate Sodium 100 Mg Capsule) 200 mg PO DAILY REPLACED BY [facility] Gabapentin (Gabapentin 100 Mg Capsule) 100 mg PO BID REPLACED BY [facility] Gabapentin (Gabapentin 600 Mg Tablet) 600 mg PO DAILY REPLACED BY [facility] Levofloxacin (Levofloxacin 750 Mg Tablet) 750 mg PO Q24H REPLACED BY [facility] Last Admin: 01/09/23 14:48 Dose: 750 mg Levothyroxine Sodium (Levothyroxine Sodium 112 Mcg Tablet) 112 mcg PO DAILY@0600 REPLACED BY [facility] Melatonin (Melatonin 3 Mg Tablet) 6 mg PO BEDTIME PRN PRN Reason: Insomnia Midodrine (Midodrine Hcl 10 Mg Tablet) 10 mg PO TID REPLACED BY [facility] Last Admin: 01/09/23 14:48 Dose: 10 mg Multivitamins/Vitamin C (Multivitamin Tablet) 1 tab PO DAILY REPLACED BY [facility] Nystatin (Nystatin Ointment 15 Gm Tube) 1 appl TOPICAL BID REPLACED BY [facility]; Protocol Last Admin: 01/09/23 11:51 Dose: 1 appl Ondansetron HCl (Ondansetron Hcl 4 Mg/2 Ml Vial) 4 mg IVPUSH Q8H PRN PRN Reason: Nausea and Vomiting Pharmacy Consult (Consult Rx Perform Med Rec) 1 each MISCELLANE ONCE PRN PRN Reason: Consult order Senna (Sennosides 8.6 Mg Tablet) 17.2 mg PO BEDTIME REPLACED BY [facility] Sodium Chloride (0.9 % Sodium Chloride Flush 3 Ml Syringe) 3 ml IVFLUSH QSHIFT REPLACED BY [facility] Last Admin: 01/09/23 14:54 Dose: 3 ml Tramadol HCl (Tramadol Hcl 50 Mg Tablet) 50 mg PO Q6H PRN PRN Reason: Pain, Moderate(Pain Scale 4-6) Last Admin: 01/09/23 14:52 Dose: 50 mg Trazodone HCl (Trazodone Hcl 50 Mg Tablet) 50 mg PO BEDTIME PRN PRN Reason: Sleep Home Medications Medication Instructions Recorded Confirmed Last Taken Type ascorbic acid (vitamin C) 500 mg 500 mg PO BID 03/23/20 01/09/23 03/23/20 History tablet baclofen 10 mg tablet 20 mg PO TID 03/23/20 01/09/23 03/23/20 History baclofen 10 mg tablet 40 mg PO BEDTIME 03/23/20 01/09/23 03/23/20 History calcitriol 0.25 mcg capsule 0.25 mcg PO DAILY 03/23/20 01/09/23 03/23/20 History calcium carbonate 500 mg calcium 500 mg PO BID 03/23/20 01/09/23 03/23/20 History (1,250 mg) tablet (Calcium 500) docusate sodium 100 mg capsule 200 mg PO DAILY 03/23/20 01/09/23 03/23/20 History (Colace) multivitamin 1 tab PO DAILY 03/23/20 01/09/23 03/23/20 History sennosides 8.6 mg tablet (senna) 17.2 mg PO BEDTIME 03/23/20 01/09/23 03/23/20 History warfarin 2 mg tablet 2 mg PO SUMOWEFR@18 03/23/20 03/23/20 03/23/20 History warfarin 3 mg tablet 3 mg PO TUTHSA@18 03/23/20 03/23/20 03/23/20 History cholecalciferol (vitamin D3) 1,250 1,250 mcg PO QMONTH 01/09/23 01/09/23 Unknown History mcg (50,000 unit) tablet dicyclomine 10 mg capsule 10 mg PO Q6H PRN Stomach Upset 01/09/23 01/09/23 Unknown History ferrous sulfate 325 mg (65 mg 325 mg PO DAILY 01/09/23 01/09/23 Unknown History iron) tablet furosemide 20 mg tablet 20 mg PO DAILY 01/09/23 01/09/23 Unknown History gabapentin 100 mg capsule 100 mg PO BID 01/09/23 01/09/23 Unknown History gabapentin 600 mg tablet 600 mg PO DAILY 01/09/23 01/09/23 Unknown History hydromorphone 2 mg tablet 4 mg PO Q3H PRN Pain 01/09/23 01/09/23 Unknown History levothyroxine 112 mcg tablet 112 mcg PO DAILY 01/09/23 01/09/23 Unknown History melatonin 10 mg tablet 10 mg PO BEDTIME PRN Sleep 01/09/23 01/09/23 Unknown History midodrine 10 mg tablet 10 mg PO TID 01/09/23 01/09/23 Unknown History vit no.95-ferrous 1 tab PO DAILY 01/09/23 01/09/23 Unknown History fumarate 28 mg-folic acid 800 mcg tablet () trazodone 50 mg tablet 50 mg PO BEDTIME PRN Sleep 01/09/23 01/09/23 Unknown History Physical Exam Vital Signs: Vital Signs: Last Vital Signs Temp 98.6 F 01/09/23 04:25 Pulse 60 01/09/23 07:18 Resp 18 01/09/23 07:18 BP 160/88 H 01/09/23 07:18 Pulse Ox 95 01/09/23 07:25 O2 Del Method Room Air 01/09/23 07:25 O2 Flow Rate 2 01/09/23 07:18 BMI result Body Mass Index 30.0 Const: General: cooperative HEENT: Head: Yes normal to inspection Face and sinus: Yes normal facial exam Mouth: Normal oral and palatal mucosa present Teeth and gingiva: dentition normal Eyes: General: appearance normal, both eyes and all related structures Pupils: Equal, round and reactive pupils present Resp: Effort & Inspection: normal respiratory effort Cardio: Rate: regular rate Rhythm: regular rhythm GI: Other: ostomy Palpation (GI): Soft to palpation and nontender : General: Yes no CVA tenderness Back/Spine/Pelvis: Back: no CVA tenderness Skin: General skin exam: no rashes or lesions noted Neuro: Other: insensate lower extremities General: moves all extremities Cranial nerves: Yes Equal, round and reactive pupils present Extrem: General: Yes normal to inspection Psych: Appearance: grossly normal Results Labs 01/09/23 05:01 01/09/23 05:01 Labs: Short CBC 01/08/23 01/09/23 Range/Units 20:54 05:01 WBC 10.5 12.0 H (4.8-10.8) X10*3/uL Hgb 12.3 L 12.8 L (14.0-18.0) g/dl Hct 38.0 L 39.8 L (42.0-52.0) % Plt Count 325 D 323 (160-400) X10*3/uL BMP 01/08/23 01/09/23 20:54 05:01 Sodium 137 138 Potassium 4.5 4.5 Chloride 99 102 Carbon Dioxide 25 20 L BUN 14 12 Creatinine 0.72 0.69 Calcium 9.7 D 9.6 Liver Function 01/08/23 Range/Units 20:54 Total Bilirubin 0.4 (0.0-1.0) mg/dL AST 22 (5-37) U/L ALT 20 (0-40) U/L Alkaline Phosphatase 75 (39-117) U/L Albumin 4.1 (3.5-5.0) g/dL Urine 01/08/23 Range/Units 21:08 Urine Color Yellow Urine Appearance Cloudy Urine pH 8.5 (5.0-9.0) Ur Specific Rolette <= 1.005 (1.005-1.025) Urine Protein 30 (1+) H (Neg-Trace) mg/dL Urine Glucose (UA) Negative (Negative) mg/dL Microbiology Microbiology Results: Microbiology 01/08/23 Unknown Urine clean catch - Urine lorenzo top Urine Culture - Preliminary Culture in progress. Assessment and Plan (1) Urinary tract infection: Status: Acute He has Pseudomonas and morganella sensitive to quinolones Adverse reaction to floxin reported as GI intolerance ,but hopefully not same effect with Levaquin. (2) Urine retention: Status: Acute Plan Levaquin for 10 days. No follow up cultures as likely colonized. Time Spent With Patient Time: Total time managing care of this patient today ____ minutes.
[2023-01-09 16:00] VITALS: BP 147/72; PULSE 60; RESP 20; TEMP 36.1; O2SAT 96
[2023-01-09 19:24] LABS: INTERNATIONAL NORM RATIO 2.2 (0.9-1.1); Prothrombin Time 26.9 SEC (11.1-13.3)
[2023-01-09] MEDS: Ascorbic Acid 500 MG TABLET PO (20:01)
[2023-01-09] MEDS: Gabapentin 100 MG CAPSULE PO (20:01)
[2023-01-09] MEDS: Sennosides 8.6 MG TABLET 17.2 MG PO (20:01)
[2023-01-09] MEDS: traZODone HCL 50 MG TABLET PO (20:02)
[2023-01-09] MEDS: Baclofen 20 MG TABLET 40 MG PO (20:02)
[2023-01-09] MEDS: Acetaminophen 325 MG TABLET 650 MG PO (20:05)
[2023-01-09] MEDS: Melatonin 3 MG TABLET 6 MG PO (22:00)
[2023-01-10 03:56] VITALS: BP 188/80; PULSE 60; RESP 18; TEMP 36.6; O2SAT 95
[2023-01-10 06:32] LABS: Hematocrit 34.6 % (42.0-52.0); Hemoglobin 10.9 g/dl (14.0-18.0); Mean Corpuscular HGB Conc 31.5 g/dl (31.0-36.0); Mean Corpuscular Volume 85.6 fL (80.0-98.0); Mean Platelet Volume 8.9 fL (9.4-12.4); Platelet Count 294 X10*3/uL (160-400); Red Blood Count 4.04 X10*6/uL (4.60-5.80); Red Cell Distribution Width 15.9 % (11.0-16.0); White Blood Count 6.6 X10*3/uL (4.8-10.8)
[2023-01-10 06:37] LABS: INTERNATIONAL NORM RATIO 2.1 (0.9-1.1); Prothrombin Time 25.7 SEC (11.1-13.3)
[2023-01-10 07:21] VITALS: BP 127/68; PULSE 61; RESP 18; TEMP 36.1; O2SAT 95
--- NOTE | 2023-01-10 08:17 | P.CONWO_ITS ---
History of Present Illness Data of Consult Primary Care Provider: Yulia Mckeon MD [facility] Medical History (Updated 01/10/23 @ 16:25 by ALESHA Wylie) Atrial fibrillation Autonomic dysfunction Hernia Hypothyroidism Irreducible left inguinal hernia Spasms of the hands or feet Spinal cord injury Family History Sister Diabetes mellitus Surgical History H/O hemorrhoidectomy H/O hernia repair H/O thyroidectomy S/P IVC filter S/P tendon repair Social History Household Members: Other Housing: Other Housing Other:: [facility] [place] Do you presently have visiting nurse or other home services: Yes (wound care) Alcohol intake: never Patient Tobacco Use Status: Never used Tobacco Advance Directives Date on File: 01/09/23 service: No Meds Allergies Allergy/AdvReac Type Severity Reaction Status Date / Time dicloxacillin [From DYNAPEN] Allergy Unknown UNKNOWN Verified 12/09/22 09:26 ofloxacin [From FLOXIN] AdvReac Intermediate UPSET Verified 12/09/22 09:26 STOMACH penicillin V AdvReac Unknown Abdominal Verified 12/09/22 09:26 Pain Active Medications: Current Medications Acetaminophen (Acetaminophen 325 Mg Tablet) 650 mg PO Q6H PRN PRN Reason: Pain, Mild (Pain Scale 1-3) Acetaminophen (Acetaminophen 325 Mg Tablet) 650 mg PO TID [facility] Last Admin: 01/09/23 20:05 Dose: 650 mg Ascorbic Acid (Ascorbic Acid 500 Mg Tablet) 500 mg PO BID [facility] Last Admin: 01/09/23 20:01 Dose: 500 mg Baclofen (Baclofen 20 Mg Tablet) 20 mg PO TID [facility] Last Admin: 01/09/23 20:02 Dose: 20 mg Baclofen (Baclofen 20 Mg Tablet) 40 mg PO BEDTIME [facility] Last Admin: 01/09/23 20:02 Dose: 40 mg Calcitriol (Calcitriol 0.25 Mcg Capsule) 0.25 mcg PO DAILY [facility] Calcium Carbonate (Calcium Carbonate 500 Mg Tablet) 500 mg PO BID [facility] Last Admin: 01/09/23 20:01 Dose: 500 mg Dicyclomine HCl (Dicyclomine Hcl 10 Mg Capsule) 10 mg PO Q6H PRN PRN Reason: Stomach Upset Docusate Sodium (Docusate Sodium 100 Mg Capsule) 200 mg PO DAILY [facility] Gabapentin (Gabapentin 100 Mg Capsule) 100 mg PO BID [facility] Last Admin: 01/09/23 20:01 Dose: 100 mg Gabapentin (Gabapentin 600 Mg Tablet) 600 mg PO DAILY [facility] Levofloxacin (Levofloxacin 750 Mg Tablet) 750 mg PO Q24H [facility] Last Admin: 01/09/23 14:48 Dose: 750 mg Levothyroxine Sodium (Levothyroxine Sodium 112 Mcg Tablet) 112 mcg PO DAILY@0600 [facility] Melatonin (Melatonin 3 Mg Tablet) 6 mg PO BEDTIME PRN PRN Reason: Insomnia Last Admin: 01/09/23 22:00 Dose: 6 mg Midodrine (Midodrine Hcl 10 Mg Tablet) 10 mg PO TID [facility] Last Admin: 01/09/23 20:15 Dose: Not Given Multivitamins/Vitamin C (Multivitamin Tablet) 1 tab PO DAILY [facility] Nystatin (Nystatin Ointment 15 Gm Tube) 1 appl TOPICAL BID [facility]; Protocol Last Admin: 01/09/23 20:15 Dose: Not Given Ondansetron HCl (Ondansetron Hcl 4 Mg/2 Ml Vial) 4 mg IVPUSH Q8H PRN PRN Reason: Nausea and Vomiting Pharmacy Consult (Consult Rx Perform Med Rec) 1 each MISCELLANE ONCE PRN PRN Reason: Consult order Senna (Sennosides 8.6 Mg Tablet) 17.2 mg PO BEDTIME [facility] Last Admin: 01/09/23 20:01 Dose: 17.2 mg Sodium Chloride (0.9 % Sodium Chloride Flush 3 Ml Syringe) 3 ml IVFLUSH QSHIFT [facility] Last Admin: 01/09/23 20:10 Dose: 3 ml Tramadol HCl (Tramadol Hcl 50 Mg Tablet) 50 mg PO Q6H PRN PRN Reason: Pain, Moderate(Pain Scale 4-6) Last Admin: 01/09/23 20:57 Dose: 50 mg Trazodone HCl (Trazodone Hcl 50 Mg Tablet) 50 mg PO BEDTIME PRN PRN Reason: Sleep Last Admin: 01/09/23 20:02 Dose: 50 mg Home Medications Medication Instructions Recorded Confirmed Last Taken Type ascorbic acid (vitamin C) 500 mg 500 mg PO BID 03/23/20 01/09/23 03/23/20 History tablet baclofen 10 mg tablet 20 mg PO TID 03/23/20 01/09/23 03/23/20 History baclofen 10 mg tablet 40 mg PO BEDTIME 03/23/20 01/09/23 03/23/20 History calcitriol 0.25 mcg capsule 0.25 mcg PO DAILY 03/23/20 01/09/23 03/23/20 History calcium carbonate 500 mg calcium 500 mg PO BID 03/23/20 01/09/23 03/23/20 History (1,250 mg) tablet (Calcium 500) docusate sodium 100 mg capsule 200 mg PO DAILY 03/23/20 01/09/23 03/23/20 History (Colace) multivitamin 1 tab PO DAILY 03/23/20 01/09/23 03/23/20 History sennosides 8.6 mg tablet (senna) 17.2 mg PO BEDTIME 03/23/20 01/09/23 03/23/20 History warfarin 2 mg tablet 2 mg PO SUMOWEFR@18 03/23/20 03/23/20 03/23/20 History warfarin 3 mg tablet 3 mg PO TUTHSA@18 03/23/20 03/23/20 03/23/20 History cholecalciferol (vitamin D3) 1,250 1,250 mcg PO QMONTH 01/09/23 01/09/23 Unknown History mcg (50,000 unit) tablet dicyclomine 10 mg capsule 10 mg PO Q6H PRN Stomach Upset 01/09/23 01/09/23 Unknown History ferrous sulfate 325 mg (65 mg 325 mg PO DAILY 01/09/23 01/09/23 Unknown History iron) tablet furosemide 20 mg tablet 20 mg PO DAILY 01/09/23 01/09/23 Unknown History gabapentin 100 mg capsule 100 mg PO BID 01/09/23 01/09/23 Unknown History gabapentin 600 mg tablet 600 mg PO DAILY 01/09/23 01/09/23 Unknown History levothyroxine 112 mcg tablet 112 mcg PO DAILY 01/09/23 01/09/23 Unknown History melatonin 10 mg tablet 10 mg PO BEDTIME PRN Sleep 01/09/23 01/09/23 Unknown History midodrine 10 mg tablet 10 mg PO TID 01/09/23 01/09/23 Unknown History vit no.95-ferrous 1 tab PO DAILY 01/09/23 01/09/23 Unknown History fumarate 28 mg-folic acid 800 mcg tablet () trazodone 50 mg tablet 50 mg PO BEDTIME PRN Sleep 01/09/23 01/09/23 Unknown History Physical Exam Vital Signs and Narrative: Vital Signs: Last Vital Signs Temp 97.0 F 01/10/23 07:21 Pulse 61 01/10/23 07:21 Resp 18 01/10/23 07:21 BP 127/68 01/10/23 07:21 Pulse Ox 95 01/10/23 07:21 O2 Del Method Room Air 01/10/23 07:21 O2 Flow Rate 2 01/09/23 07:18 BMI result Body Mass Index 30.0 Results Labs 01/10/23 06:06 01/09/23 05:01 Labs: Laboratory Results - last 24 hr 01/09/23 01/10/23 01/10/23 19:12 06:06 06:06 MCV 85.6 MCH 27.0 MCHC 31.5 RDW 15.9 Plt Count 294 MPV 8.9 L Absolute Nucleated RBC 0.000 Nucleated RBC % (auto) 0.0 PT 26.9 H 25.7 H INR 2.2 H 2.1 H Assessment and Plan (1) Atrial fibrillation: Status: Chronic Time Spent With Patient Time: Total time managing care of this patient today ____ minutes.
[2023-01-10] MEDS: Gabapentin 600 MG TABLET PO (09:09)
[2023-01-10] MEDS: Multivitamin TABLET 1 TAB PO (09:09)
[2023-01-10] MEDS: Baclofen 20 MG TABLET PO ×2 (09:09→15:24)
[2023-01-10] MEDS: Ascorbic Acid 500 MG TABLET PO (09:09)
[2023-01-10] MEDS: Midodrine HCl 10 MG TABLET PO ×2 (09:09→15:24)
[2023-01-10] MEDS: Acetaminophen 325 MG TABLET 650 MG PO ×2 (09:09→15:24)
[2023-01-10] MEDS: Gabapentin 100 MG CAPSULE PO (09:09)
[2023-01-10] MEDS: calcitrioL 0.25 MCG CAPSULE PO (09:09)
[2023-01-10] MEDS: Docusate Sodium 100 MG CAPSULE 200 MG PO (09:10)
[2023-01-10] MEDS: 0.9 % Sodium Chloride Flush 3 ML SYRINGE IVFLUSH (09:10)
[2023-01-10] MEDS: Levothyroxine Sodium 112 MCG TABLET PO (09:10)
[2023-01-10] MEDS: Nystatin Ointment 15 GM TUBE 1 APPL TOPICAL (09:15)
[2023-01-10] MEDS: traMADoL HCL 50 MG TABLET PO (09:31)
--- NOTE | 2023-01-10 10:50 | PM.DS ---
DS: Providers Provider Date of Service: 01/10/23 Date of admission: 01/09/23 01:22 Primary care physician: Yulia Mckeon MD Consults: 01/09/23 01:24 Consult to Infectious Diseases Routine Consulting Provider: Ritu Andrea Reason for consultation: UTI 01/09/23 11:02 Consult to Wound Care Routine Consulting Provider: Yesy Ledbetter Reason for consultation: sacral decub Has provider been notified: No DS: Diagnosis Discharge Diagnosis (1) Urinary tract infection: Status: Acute (2) Urine retention: Status: Acute DS: Summary Hospital Course Hospital Course: history of presenting illness. Date of Service: 01/09/23 Chief Complaint: Urine infection This is a 67-year-old male with pertinent history of AFib on Coumadin, C5-C6 spinal cord injury with resulting lower extremity paralysis and status post colostomy and suprapubic catheter, hypothyroidism was brought to the emergency department for concerns of urinary infection and IV antibiotics.? Patient was seen in the ER on 01/03 for shoulder pain.? UA was obtained which grew Pseudomonas and Morganella morganii.? Patient was called back to the ER for IV antibiotics.? Patient states he has a chronic suprapubic catheter and has no feelings below umbilicus.? No fevers or chills.? He denies any complaints at the time of examination.? No chest discomfort, palpitations, shortness breath. Hospital course: 67-year-old male with pertinent history of AFib on Coumadin, C5-C6 spinal cord injury with resulting lower extremity paralysis and status post colostomy and suprapubic catheter, hypothyroidism was brought to the emergency department for concerns of urinary infection and IV antibiotics. #.Acute UTI related to chronic suprapubic catheter with history of C5-C6 spinal cord injury:? Urine grew Pseudomonas and Morganella, blood cultures x2 negative, patient seen by infectious disease he recommend total 10 days of Levaquin. patient remains afebrile, repeat urine culture showed grew? mixed organisms. #.? AFib on Coumadin.? Rate controlled? continue Coumadin INR therapeutic , follow PT INR closely while on antibiotics #.? Hypothyroidism.? continue Synthroid #.? C5-C6 spinal cord injury.? Continue baclofen, stool softeners. # ? chronic sacral decubitus ulcer , recommend outpatient wound care follow-up #? chronic Right shoulder pain take Ultram 50 mg every 8 hours as needed. Time Spent with Patient Time attestation: Total time managing care of this patient today ____ minutes. Discharge coordination time: Greater than 30 minutes Quality: Safe Use of Opioids Does Pt have an Active Cancer Diagnosis on the Problem List?: No Quality: Stroke Does the patient have a stroke diagnosis?: No Physical Exam Vital Signs: Vital Signs: Last Vital Signs Temp 97.0 F 01/10/23 07:21 Pulse 61 01/10/23 07:21 Resp 18 01/10/23 07:21 BP 127/68 01/10/23 07:21 Pulse Ox 95 01/10/23 07:21 O2 Del Method Room Air 01/10/23 07:21 O2 Flow Rate 2 01/09/23 07:18 BMI result Body Mass Index 30.0 Const: Other: General lying in bed in no distress Neck supple, no JVD Irregularly irregular, S1-S2 heard Regular breath sounds bilaterally, no wheezing or crackles appreciated Abdomen soft non tender, no guarding, no rigidity, supra pubic catheter in place Patient is awake, alert and oriented to self, place, time and person ; no sensation below umbilicus, bilateral lower extremity paralysis Psych: Normal mood DS: Data Data Completed and Pending Labs on day of discharge: Laboratory Results - last 24 hr 01/09/23 01/10/23 01/10/23 19:12 06:06 06:06 WBC 6.6 RBC 4.04 L Hgb 10.9 L Hct 34.6 L MCV 85.6 MCH 27.0 MCHC 31.5 RDW 15.9 Plt Count 294 MPV 8.9 L Absolute Nucleated RBC 0.000 Nucleated RBC % (auto) 0.0 PT 26.9 H 25.7 H INR 2.2 H 2.1 H Preliminary micro results at discharge 01/08/23 20:57 Blood Culture - Preliminary Blood - Venous No growth after 24 hours. 01/08/23 20:52 Blood Culture - Preliminary Blood - Venous No growth after 24 hours. Discharge Plan Discharge Anticipated Discharge Date/Time: 01/10/23 10:37 Patient Disposition: Home, Self-Care Discharge Diagnosis: uti Referrals: Yulia Mckeon MD [Primary Care Provider] - 1 Week Discharge Medications: New levofloxacin 750 mg Tablet 750 mg PO Q24H Qty: 8 0RF tramadol 50 mg Tablet 50 mg PO Q8H PRN (Reason: Pain, Moderate(Pain Scale 4-6)) Qty: 14 0RF Continued multivitamin Tablet 1 tab PO DAILY sennosides [senna] 8.6 mg Tablet 17.2 mg PO BEDTIME warfarin 3 mg Tablet 3 mg PO TUTHSA@18 calcium carbonate [Calcium 500] 500 mg calcium (1,250 mg) Tablet 500 mg PO BID ascorbic acid (vitamin C) 500 mg Tablet 500 mg PO BID baclofen 10 mg tablet 20 mg PO TID baclofen 10 mg tablet 40 mg PO BEDTIME warfarin 2 mg Tablet 2 mg PO SUMOWEFR@18 docusate sodium [Colace] 100 mg Capsule 200 mg PO DAILY calcitriol 0.25 mcg capsule 0.25 mcg PO DAILY acetaminophen 325 mg Tablet 650 mg PO TID Qty: 60 0RF Rx Instructions: For 10 days then as needed gabapentin 600 mg tablet 600 mg PO DAILY trazodone 50 mg Tablet 50 mg PO BEDTIME PRN (Reason: Sleep) ferrous sulfate 325 mg (65 mg iron) Tablet 325 mg PO DAILY furosemide 20 mg tablet 20 mg PO DAILY gabapentin 100 mg capsule 100 mg PO BID dicyclomine 10 mg capsule 10 mg PO Q6H PRN (Reason: Stomach Upset) levothyroxine 112 mcg tablet 112 mcg PO DAILY midodrine 10 mg Tablet 10 mg PO TID Rx Instructions: do not give last dose of day after 6PM or within 4 hrs of bedtime PNV cmb#95-ferrous fumarate-FA [] 28 mg iron- 800 mcg Tablet 1 tab PO DAILY melatonin 10 mg Tablet 10 mg PO BEDTIME PRN (Reason: Sleep) cholecalciferol (vitamin D3) 1,250 mcg (50,000 unit) Tablet 1,250 mcg PO QMONTH Discontinued hydromorphone 2 mg tablet 4 mg PO Q3H PRN (Reason: Pain) Discharge Orders: Discharge Order (Routine); Ordered 01/10/23 Ordered By: Marisabel Garcia Diet: Advance to usual diet Activity on Discharge: As tolerated Stand Alone Forms: Patient Portal Discharge page Other Ambulatory Orders: Prothrombin Time INR (Routine) Timeframe: 20230112 Facility: [facility] - Location: Laboratory Ordered By: Marisabel Garcia Care Plan Goals: take Levaquin 750 mg 1 tablet daily for 8 more days, use Ultram 1 tablet as needed for left shoulder pain continue all other home medication do not combine Ultram with other narcotics like Dilaudid. check PT INR on 01/12 and again next week Health Concerns: continue all home medications. Plan of Treatment: outpatient follow-up with primary care physician and Wound Care Clinic. Assessment: as above
--- NOTE | 2023-01-10 11:02 | MHC.CM.PN ---
Addendum entered by Emilia Guadalupe 01/10/23 14:29: SISTER OLIVER UPDATED ON DC BACK TO . Addendum entered by Emilia Guadalupe 01/10/23 11:53: PT IS ACTIVE WITH [facility] FOR DAILY WOUND CARE AND ATTEN[facility]. Original Note: [facility]ED LIVES IN A [facility] (DISABLED) AND IS DEPENDENT WITH ALL CARE. [facility] TRANSFERS. HAS CHRONIC F/C. + COVID [place] +HCP PCP DR. LINO. DP: PT HAS BEEN MEDICALLY CLEARED FOR DC BACK TO CORRECTION VIA BLS. CORRECTION NURSE WM UPDATED ([phone]) BLS TRANSPORT BOOKED VIA [facility] FOR 2:00 PM
[2023-01-10] MEDS: levoFLOXacin 750 MG TABLET PO (13:08)
--- NOTE | 2023-01-10 14:34 | HO.WOUNDCONS ---
History of Present Illness Data of Consult Service Date: 01/10/23 Requesting physician: Marisabel Garcia Primary Care Provider: Yulia Mckeon MD HPI Reason for consult: various ulcers of feet, buttocks [id number]: We have been seeing Denzel weekly since the end of November on an outpatient basis in the [facility], while he was a resident at a subacute nursing facility. He has a history at [facility] and I believe he was at the [facility] as well. His cervical spinal cord injury is from 1994. He has a history of ischial osteomyelitis, not managed by our wound center. We are asked to provide dressing recommendations while he is here for UTI. His last visit was January 02, see wound care notes for details. [facility] Medical History (Updated 01/10/23 @ 16:25 by ALESHA Wylie) Atrial fibrillation Autonomic dysfunction Hernia Hypothyroidism Irreducible left inguinal hernia Spasms of the hands or feet Spinal cord injury Family History Sister Diabetes mellitus Surgical History H/O hemorrhoidectomy H/O hernia repair H/O thyroidectomy S/P IVC filter S/P tendon repair Social History Household Members: Other Housing: Other Housing Other:: [facility] [place] Do you presently have visiting nurse or other home services: Yes (wound care) Alcohol intake: never Patient Tobacco Use Status: Never used Tobacco Advance Directives Date on File: 01/09/23 service: No Meds Allergies Allergy/AdvReac Type Severity Reaction Status Date / Time dicloxacillin [From DYNAPEN] Allergy Unknown UNKNOWN Verified 12/09/22 09:26 ofloxacin [From FLOXIN] AdvReac Intermediate UPSET Verified 12/09/22 09:26 STOMACH penicillin V AdvReac Unknown Abdominal Verified 12/09/22 09:26 Pain Active Medications: Current Medications Acetaminophen (Acetaminophen 325 Mg Tablet) 650 mg PO Q6H PRN PRN Reason: Pain, Mild (Pain Scale 1-3) Acetaminophen (Acetaminophen 325 Mg Tablet) 650 mg PO TID SACHIN Last Admin: 01/10/23 09:09 Dose: 650 mg Ascorbic Acid (Ascorbic Acid 500 Mg Tablet) 500 mg PO BID [facility] Last Admin: 01/10/23 09:09 Dose: 500 mg Baclofen (Baclofen 20 Mg Tablet) 20 mg PO TID [facility] Last Admin: 01/10/23 09:09 Dose: 20 mg Baclofen (Baclofen 20 Mg Tablet) 40 mg PO BEDTIME [facility] Last Admin: 01/09/23 20:02 Dose: 40 mg Calcitriol (Calcitriol 0.25 Mcg Capsule) 0.25 mcg PO DAILY [facility] Last Admin: 01/10/23 09:09 Dose: 0.25 mcg Calcium Carbonate (Calcium Carbonate 500 Mg Tablet) 500 mg PO BID [facility] Last Admin: 01/10/23 09:09 Dose: 500 mg Dicyclomine HCl (Dicyclomine Hcl 10 Mg Capsule) 10 mg PO Q6H PRN PRN Reason: Stomach Upset Docusate Sodium (Docusate Sodium 100 Mg Capsule) 200 mg PO DAILY [facility] Last Admin: 01/10/23 09:10 Dose: 200 mg Gabapentin (Gabapentin 100 Mg Capsule) 100 mg PO BID [facility] Last Admin: 01/10/23 09:09 Dose: 100 mg Gabapentin (Gabapentin 600 Mg Tablet) 600 mg PO DAILY [facility] Last Admin: 01/10/23 09:09 Dose: 600 mg Levofloxacin (Levofloxacin 750 Mg Tablet) 750 mg PO Q24H [facility] Last Admin: 01/10/23 13:08 Dose: 750 mg Levothyroxine Sodium (Levothyroxine Sodium 112 Mcg Tablet) 112 mcg PO DAILY@0600 [facility] Last Admin: 01/10/23 09:10 Dose: 112 mcg Melatonin (Melatonin 3 Mg Tablet) 6 mg PO BEDTIME PRN PRN Reason: Insomnia Last Admin: 01/09/23 22:00 Dose: 6 mg Midodrine (Midodrine Hcl 10 Mg Tablet) 10 mg PO TID [facility] Last Admin: 01/10/23 09:09 Dose: 10 mg Multivitamins/Vitamin C (Multivitamin Tablet) 1 tab PO DAILY [facility] Last Admin: 01/10/23 09:09 Dose: 1 tab Nystatin (Nystatin Ointment 15 Gm Tube) 1 appl TOPICAL BID [facility]; Protocol Last Admin: 01/10/23 09:15 Dose: 1 appl Ondansetron HCl (Ondansetron Hcl 4 Mg/2 Ml Vial) 4 mg IVPUSH Q8H PRN PRN Reason: Nausea and Vomiting Pharmacy Consult (Consult Rx Perform Med Rec) 1 each MISCELLANE ONCE PRN PRN Reason: Consult order Senna (Sennosides 8.6 Mg Tablet) 17.2 mg PO BEDTIME [facility] Last Admin: 01/09/23 20:01 Dose: 17.2 mg Sodium Chloride (0.9 % Sodium Chloride Flush 3 Ml Syringe) 3 ml IVFLUSH QSHIFT [facility] Last Admin: 01/10/23 09:10 Dose: 3 ml Tramadol HCl (Tramadol Hcl 50 Mg Tablet) 50 mg PO Q6H PRN PRN Reason: Pain, Moderate(Pain Scale 4-6) Last Admin: 01/10/23 09:31 Dose: 50 mg Trazodone HCl (Trazodone Hcl 50 Mg Tablet) 50 mg PO BEDTIME PRN PRN Reason: Sleep Last Admin: 01/09/23 20:02 Dose: 50 mg Home Medications Medication Instructions Recorded Confirmed Last Taken Type ascorbic acid (vitamin C) 500 mg 500 mg PO BID 03/23/20 01/09/23 03/23/20 History tablet baclofen 10 mg tablet 20 mg PO TID 03/23/20 01/09/23 03/23/20 History baclofen 10 mg tablet 40 mg PO BEDTIME 03/23/20 01/09/23 03/23/20 History calcitriol 0.25 mcg capsule 0.25 mcg PO DAILY 03/23/20 01/09/23 03/23/20 History calcium carbonate 500 mg calcium 500 mg PO BID 03/23/20 01/09/23 03/23/20 History (1,250 mg) tablet (Calcium 500) docusate sodium 100 mg capsule 200 mg PO DAILY 03/23/20 01/09/23 03/23/20 History (Colace) multivitamin 1 tab PO DAILY 03/23/20 01/09/23 03/23/20 History sennosides 8.6 mg tablet (senna) 17.2 mg PO BEDTIME 03/23/20 01/09/23 03/23/20 History warfarin 2 mg tablet 2 mg PO SUMOWEFR@18 03/23/20 03/23/20 03/23/20 History warfarin 3 mg tablet 3 mg PO TUTHSA@18 03/23/20 03/23/20 03/23/20 History cholecalciferol (vitamin D3) 1,250 1,250 mcg PO QMONTH 01/09/23 01/09/23 Unknown History mcg (50,000 unit) tablet dicyclomine 10 mg capsule 10 mg PO Q6H PRN Stomach Upset 01/09/23 01/09/23 Unknown History ferrous sulfate 325 mg (65 mg 325 mg PO DAILY 01/09/23 01/09/23 Unknown History iron) tablet furosemide 20 mg tablet 20 mg PO DAILY 01/09/23 01/09/23 Unknown History gabapentin 100 mg capsule 100 mg PO BID 01/09/23 01/09/23 Unknown History gabapentin 600 mg tablet 600 mg PO DAILY 01/09/23 01/09/23 Unknown History levothyroxine 112 mcg tablet 112 mcg PO DAILY 01/09/23 01/09/23 Unknown History melatonin 10 mg tablet 10 mg PO BEDTIME PRN Sleep 01/09/23 01/09/23 Unknown History midodrine 10 mg tablet 10 mg PO TID 01/09/23 01/09/23 Unknown History vit no.95-ferrous 1 tab PO DAILY 01/09/23 01/09/23 Unknown History fumarate 28 mg-folic acid 800 mcg tablet () trazodone 50 mg tablet 50 mg PO BEDTIME PRN Sleep 01/09/23 01/09/23 Unknown History Physical Exam Vital Signs and Narrative: Vital Signs: Last Vital Signs Temp 97.0 F 01/10/23 07:21 Pulse 61 01/10/23 07:21 Resp 18 01/10/23 07:21 BP 127/68 01/10/23 07:21 Pulse Ox 95 01/10/23 07:21 O2 Del Method Room Air 01/10/23 07:21 O2 Flow Rate 2 01/09/23 07:18 BMI result Body Mass Index 30.0 He is getting cleaned up this morning. His esparza is shaven, showing good hygiene. Skin integrity is excellent with the exception of the wounds which are improving. There is some maceration from the ischial wound. The remainder of the buttock skin integrity is showing very minimal skin breakdown. Right foot eshar stable. Left heel ulcer open. Results Labs 01/10/23 06:06 01/09/23 05:01 Labs: Laboratory Results - last 24 hr 01/09/23 01/10/23 01/10/23 19:12 06:06 06:06 MCV 85.6 MCH 27.0 MCHC 31.5 RDW 15.9 Plt Count 294 MPV 8.9 L Absolute Nucleated RBC 0.000 Nucleated RBC % (auto) 0.0 PT 26.9 H 25.7 H INR 2.2 H 2.1 H Assessment and Plan (1) Chronic osteomyelitis with draining sinus, other site: Status: Acute Plan 67-year-old C7 tetraplegia patient [facility] with known chronic ischial ulceration. Orders placed for dura fiber within this open draining area and protection of the intact periwound buttock dermis with antifungal/zinc oxide topical barrier. Any small open areas on the buttocks can be protected with foam border dressing for now. Remove foam from stable eshcar right foot and use betadine paint. We can see him back in the [facility] as scheduled following hospital discharge. Time Spent With Patient Time: Total time managing care of this patient today ____ minutes.
[2023-01-10 15:35] VITALS: BP 90/51; PULSE 59; RESP 20; TEMP 36.1; O2SAT 94
--- NOTE | 2023-01-11 07:15 | P.CDIM_ITS ---
PROVIDER RESPONSE TEXT: To clarify, the appropriate diagnosis supported by the clinical indicators: Pressure (decubitus) ulcer/injury left heel Stage III QUERY TEXT: PHYSICIAN'S DOCUMENTATION REQUEST Date of Query: 01/10/2023 08:50 AM EDT Patient Name: SAQIB PEREZ Admit Date: 01/09/2023 Dear Marisabel Garcia, A review of the medical record indicates additional documentation may be needed. Please review below and update the documentation accordingly. Clinical Indicators:. Wound assessment nursing notes 01/09 - Pressure injury Stage III left heel Dry and intact Foam Based on the above, could you please provide further information regarding the ulcer/injury: Pressure (decubitus) ulcer/injury left heel Stage III Other please specify if known Other (explain)Clinically unable to determine (explain)Thank you, Maude Gaston, CCS, CDIS Use of terms such as suspected, likely, concern for, or probable (associated with a specific diagnosi s that is being evaluated, monitored, or treated as if it exists) are acceptable and can be coded in the inpatient se tting, when documented at the time of discharge. Please use your independent medical judgment in providing your response. THIS QUERY IS PART OF THE PERMANENT MEDICAL RECORD
== END 2023-01-10 16:32 | disposition home or self-care (01) | DRG 698 ==
LOC: HO.ED 21:26 → HO.EDOVER 01-09 01:29 → HO.S3 01-09 09:56
PROVIDERS: Physician Assistant; Admitting Provider Student in an Organized Health Care Education/Training Program; Emergency Provider Internal Medicine; PCP Family Medicine; Visit Provider Hospitalist
DX: T83.518A Infection and inflammatory reaction due to other urinary catheter, initial encounter (principal); L89.623 Pressure ulcer of left heel, stage 3; G82.20 Paraplegia, unspecified; N39.0 Urinary tract infection, site not specified; E03.9 Hypothyroidism, unspecified; M25.512 Pain in left shoulder; Z93.3 Colostomy status; G89.29 Other chronic pain; B96.5 Pseudomonas (aeruginosa) (mallei) (pseudomallei) as the cause of diseases classified elsewhere; R33.9 Retention of urine, unspecified; L89.159 Pressure ulcer of sacral region, unspecified stage; I48.91 Unspecified atrial fibrillation; S14.105S Unspecified injury at C5 level of cervical spinal cord, sequela; Z79.01 Long term (current) use of anticoagulants; Z79.890 Hormone replacement therapy; Z79.899 Other long term (current) drug therapy
CPT/HCPCS: 36415; 71045; 80048; 80053; 81001; 83605; 83880; 85025; 85027; 85610; 85730; 87040; 87086; 93005; 99285; J2185

== ENCOUNTER → 2023-01-08 20:28 | Outpatient (BNV) | payer MEDICARE, MEDICAID, SELFPAY | PROVIDERS: Admitting Provider Student in an Organized Health Care Education/Training Program; Emergency Provider Internal Medicine; PCP Family Medicine; Visit Provider Internal Medicine Cardiovascular Disease | DX: R94.31 Abnormal electrocardiogram [ECG] [EKG] (principal) | CPT/HCPCS: 93010 ==

== ENCOUNTER → 2023-01-09 01:22 | Outpatient (BNV) | payer MEDICARE, MEDICAID, SELFPAY | PROVIDERS: Admitting Provider Student in an Organized Health Care Education/Training Program; Emergency Provider Internal Medicine; PCP Family Medicine; Visit Provider Student in an Organized Health Care Education/Training Program | DX: N39.0 Urinary tract infection, site not specified (principal); R33.9 Retention of urine, unspecified | CPT/HCPCS: 99222; 99239; 99499 ==

== ENCOUNTER → 2023-01-09 01:22 | Outpatient (BNV) | payer MEDICARE, MEDICAID, SELFPAY | PROVIDERS: Admitting Provider Student in an Organized Health Care Education/Training Program; Emergency Provider Internal Medicine; PCP Family Medicine; Visit Provider Internal Medicine | DX: N39.0 Urinary tract infection, site not specified (principal); R33.9 Retention of urine, unspecified | CPT/HCPCS: 99222 ==

== ENCOUNTER 2023-01-26 21:52 | Emergency (ER) | payer MEDICARE, MEDICAID, SELFPAY ==
[2023-01-26 22:00] VITALS: BP 111/78; BP 150/90; PULSE 61; PULSE 85; RESP 18; TEMP 36.7; O2SAT 97; O2SAT 98; BMI 37.2
[2023-01-26 22:10] VITALS: BP 111/78; PULSE 61; RESP 18; TEMP 36.7; O2SAT 97
--- NOTE | 2023-01-26 22:43 | ED_ITS ---
HPI - Male Genitourinary General Chief complaint: Urogenital-Male Stated complaint: Catheter change coming from facility, bed bound Time Seen by Provider: 01/26/23 22:12 Source: patient Mode of arrival: EMS History of Present Illness HPI Narrative: 67-year-old male from a assisted states that his suprapubic catheter got pulled out while he was being transferred into his bed. He also states that the visiting nurse was unable to replace it. Related Data Home Medications Medication Instructions Recorded Confirmed ascorbic acid (vitamin C) 500 mg 500 mg PO BID 03/23/20 01/09/23 tablet baclofen 10 mg tablet 20 mg PO TID 03/23/20 01/09/23 baclofen 10 mg tablet 40 mg PO BEDTIME 03/23/20 01/09/23 calcitriol 0.25 mcg capsule 0.25 mcg PO DAILY 03/23/20 01/09/23 calcium carbonate 500 mg calcium 500 mg PO BID 03/23/20 01/09/23 (1,250 mg) tablet (Calcium 500) docusate sodium 100 mg capsule 200 mg PO DAILY 03/23/20 01/09/23 (Colace) multivitamin 1 tab PO DAILY 03/23/20 01/09/23 sennosides 8.6 mg tablet (senna) 17.2 mg PO BEDTIME 03/23/20 01/09/23 warfarin 2 mg tablet 2 mg PO SUMOWEFR@18 03/23/20 03/23/20 warfarin 3 mg tablet 3 mg PO TUTHSA@18 03/23/20 03/23/20 cholecalciferol (vitamin D3) 1,250 1,250 mcg PO QMONTH 01/09/23 01/09/23 mcg (50,000 unit) tablet dicyclomine 10 mg capsule 10 mg PO Q6H PRN Stomach Upset 01/09/23 01/09/23 ferrous sulfate 325 mg (65 mg 325 mg PO DAILY 01/09/23 01/09/23 iron) tablet furosemide 20 mg tablet 20 mg PO DAILY 01/09/23 01/09/23 gabapentin 100 mg capsule 100 mg PO BID 01/09/23 01/09/23 gabapentin 600 mg tablet 600 mg PO DAILY 01/09/23 01/09/23 levothyroxine 112 mcg tablet 112 mcg PO DAILY 01/09/23 01/09/23 melatonin 10 mg tablet 10 mg PO BEDTIME PRN Sleep 01/09/23 01/09/23 midodrine 10 mg tablet 10 mg PO TID 01/09/23 01/09/23 vit no.95-ferrous 1 tab PO DAILY 01/09/23 01/09/23 fumarate 28 mg-folic acid 800 mcg tablet () trazodone 50 mg tablet 50 mg PO BEDTIME PRN Sleep 01/09/23 01/09/23 Previous Rx's Medication Instructions Recorded acetaminophen 325 mg tablet 650 mg PO TID #60 tabs 03/29/20 levofloxacin 750 mg tablet 750 mg PO DAILY #8 tabs 01/10/23 levofloxacin 750 mg tablet 750 mg PO Q24H #8 tabs 01/10/23 tramadol 50 mg tablet 50 mg PO Q8H PRN Pain, 01/10/23 Moderate(Pain Scale 4-6) #14 tabs Allergies Allergy/AdvReac Type Severity Reaction Status Date / Time dicloxacillin [From DYNAPEN] Allergy Unknown UNKNOWN Verified 12/09/22 09:26 ofloxacin [From FLOXIN] AdvReac Intermediate UPSET Verified 12/09/22 09:26 STOMACH penicillin V AdvReac Unknown Abdominal Verified 12/09/22 09:26 Pain Review of Systems Review of Systems: Pertinent positives and negatives as stated in [facility] Past Medical History Source: nursing notes reviewed Medical History Atrial fibrillation Autonomic dysfunction Hernia Hypothyroidism Irreducible left inguinal hernia Pneumonia Spasms of the hands or feet Spinal cord injury Urine retention Surgical History H/O hemorrhoidectomy H/O hernia repair H/O thyroidectomy S/P IVC filter S/P tendon repair Family History Family History Sister Diabetes mellitus Social History Social History Household Members: Other Housing: Other Housing Other:: assisted in [place] Do you presently have visiting nurse or other home services: Yes (wound care) Alcohol intake: never Patient Tobacco Use Status: Never used Tobacco Smoked in Last 30 Days: No Use of substances other than those prescribed or required for medical reasons: No Advance Directives: Yes Advance Directives on File: Yes Advance Directives Date on File: 01/09/23 service: No Physical Exam Vital Signs: Vital Signs: Last Vital Signs Temp 98.1 F 01/26/23 22:10 Pulse 61 01/26/23 22:10 Resp 18 01/26/23 22:10 BP 111/78 01/26/23 22:10 Pulse Ox 97 01/26/23 22:10 O2 Del Method Room Air 01/26/23 22:10 BMI result Body Mass Index 37.2 VITAL SIGNS: Reviewed. GENERAL: Well developed, well nourished, in no acute distress. HEAD: Normocephalic/atraumatic EYES: PERRLA, EOMI LUNGS: Normal breath sounds. No adventitious sounds or accessory muscle use. SpO2<97> CARDIOVASCULAR: Regular rate and rhythm without noted murmurs ABDOMEN: Soft, non-tender, non-distended with bowel sounds. patent ostomy bag with air and stool, suprapubic area appears within normal limits MUSCULOSKELETAL: No tenderness, deformities, or effusions noted on gross inspection. EXTREMITIES: No cyanosis, clubbing or edema. SKIN: Inspection of the skin reveals no rashes, ulcerations, jaundice, pallor, or petechiae. NEUROLOGIC: Alert and oriented x 4. Partial quadriplegic Medical Decision Making Medical Decision Making MDM Narrative: 67-year-old male who is here for suprapubic [place] catheter replacement. Staff use at bedside was counseled on appropriate precautions prior to transfer of the patient from bed to chair, or bed to bed. difficult placement of [place] catheter, patient has developing strictures within the suprapubic tract, I was able to use a red Black catheter to improve the tract flow but still unable despite manipulation to place an 18 [place] catheter. I was able to place a 16 [place] catheter without difficulty, no complications, immediate flow of urine, balloon inflated with 10 cc of normal saline. Counseled both patient and staff member at bedside on the importance of locating the drainage bag prior to any movement to avoid displacement again. Procedures Catheter Insertion (Urinary) Date of insertion: 01/26/23 Time of insertion: 23:41 Reason for placing: Yes Reason for placing indwelling catheter: Prolonged immobilization Bladder scan/ultrasound used before catheterization: No Antiseptic solution prep: Povidone-Iodine Topical anesthesia used: No Catheter type/location: Suprapubic Size ([place]): 16 Catheter balloon size (mL): 10 Catheter balloon amount: 10 Results: successfully catheterized-immediate flow Procedure performed: with complications Complications: patient's for regularly 18 [place] catheter would not fit due to suspected Discharge Plan Discharge Clinical Impression: Dislodged [place] catheter Patient Disposition: Xfer Other Instructions: [place] Catheter Placement and Care (ED) Additional Instructions: Please be very careful and identify the location of the drainage bag prior to movement of the patient to avoid dislodging the catheter again. follow-up with your urologist and discuss the fact that you are developing some strictures within the suprapubic tract that may need to be dilated if a larger catheter is recommended. Prescriptions: No Action multivitamin Tablet 1 tab PO DAILY sennosides [senna] 8.6 mg Tablet 17.2 mg PO BEDTIME warfarin 3 mg Tablet 3 mg PO TUTHSA@18 calcium carbonate [Calcium 500] 500 mg calcium (1,250 mg) Tablet 500 mg PO BID ascorbic acid (vitamin C) 500 mg Tablet 500 mg PO BID baclofen 10 mg tablet 20 mg PO TID baclofen 10 mg tablet 40 mg PO BEDTIME warfarin 2 mg Tablet 2 mg PO SUMOWEFR@18 docusate sodium [Colace] 100 mg Capsule 200 mg PO DAILY calcitriol 0.25 mcg capsule 0.25 mcg PO DAILY acetaminophen 325 mg Tablet 650 mg PO TID Qty: 60 0RF Rx Instructions: For 10 days then as needed gabapentin 600 mg tablet 600 mg PO DAILY trazodone 50 mg Tablet 50 mg PO BEDTIME PRN (Reason: Sleep) ferrous sulfate 325 mg (65 mg iron) Tablet 325 mg PO DAILY furosemide 20 mg tablet 20 mg PO DAILY gabapentin 100 mg capsule 100 mg PO BID dicyclomine 10 mg capsule 10 mg PO Q6H PRN (Reason: Stomach Upset) levothyroxine 112 mcg tablet 112 mcg PO DAILY midodrine 10 mg Tablet 10 mg PO TID Rx Instructions: do not give last dose of day after 6PM or within 4 hrs of bedtime PNV cmb#95-ferrous fumarate-FA [] 28 mg iron- 800 mcg Tablet 1 tab PO DAILY melatonin 10 mg Tablet 10 mg PO BEDTIME PRN (Reason: Sleep) cholecalciferol (vitamin D3) 1,250 mcg (50,000 unit) Tablet 1,250 mcg PO QMONTH levofloxacin 750 mg Tablet 750 mg PO Q24H Qty: 8 0RF tramadol 50 mg Tablet 50 mg PO Q8H PRN (Reason: Pain, Moderate(Pain Scale 4-6)) Qty: 14 0RF levofloxacin 750 mg tablet 750 mg PO DAILY Qty: 8 0RF
[2023-01-26 23:54] VITALS: BP 95/65; PULSE 60; RESP 16; TEMP 36.7; O2SAT 98
--- NOTE | 2023-01-27 | MHC.EDTECH ---
Call out to [facility] @[id number] to book BLS transport back to assisted, ETA of 20-25 mins was given.
== END 2023-01-27 00:30 | disposition home or self-care (01) ==
PROVIDERS: Emergency Provider Student in an Organized Health Care Education/Training Program; PCP Family Medicine
DX: T83.028A Displacement of other urinary catheter, initial encounter (principal); Y73.8 Miscellaneous gastroenterology and urology devices associated with adverse incidents, not elsewhere classified; Y92.042 Bedroom in boarding-house as the place of occurrence of the external cause
CPT/HCPCS: 51702; 99283; 99284

== ENCOUNTER 2023-02-23 11:44 | Emergency (ER) | payer MEDICARE, MEDICAID, SELFPAY ==
[2023-02-23 12:18] VITALS: BP 144/92; BP 179/106; PULSE 62; PULSE 65; RESP 20; TEMP 37.1; O2SAT 95; O2SAT 96; BMI 32.0
--- NOTE | 2023-02-23 12:54 | ED_ITS ---
HPI - Male Genitourinary General Chief complaint: Urogenital-Male Stated complaint: PULLED CATHETER OUT Time Seen by Provider: 02/23/23 11:52 Source: patient and old records reviewed Mode of arrival: EMS Limitations: no limitations History of Present Illness HPI Narrative: 67 yo male with hx of spinal cord injury and paraplegia, UTI, chronic osteo s/p suprapubic 1 year ago usually has 18F in place just had to have 16F placed in January after it fell out - replaced in ED. He went to bed with cath in place woke up and it was out. He has no pain, catheter was intact. Has no other complaints. MD Complaint: other (catheter issue) Onset (ago): unknown Duration: constant Location: abdomen (suprapubic) Severity: mild Relieving factors: none Exacerbating factors: none Context: indwelling catheter Associated symptoms: Reports denies other symptoms Related Data Home Medications Medication Instructions Recorded Confirmed ascorbic acid (vitamin C) 500 mg 500 mg PO BID 03/23/20 01/09/23 tablet baclofen 10 mg tablet 20 mg PO TID 03/23/20 01/09/23 baclofen 10 mg tablet 40 mg PO BEDTIME 03/23/20 01/09/23 calcitriol 0.25 mcg capsule 0.25 mcg PO DAILY 03/23/20 01/09/23 calcium carbonate 500 mg calcium 500 mg PO BID 03/23/20 01/09/23 (1,250 mg) tablet (Calcium 500) docusate sodium 100 mg capsule 200 mg PO DAILY 03/23/20 01/09/23 (Colace) multivitamin 1 tab PO DAILY 03/23/20 01/09/23 sennosides 8.6 mg tablet (senna) 17.2 mg PO BEDTIME 03/23/20 01/09/23 warfarin 2 mg tablet 2 mg PO SUMOWEFR@18 03/23/20 03/23/20 warfarin 3 mg tablet 3 mg PO TUTHSA@18 03/23/20 03/23/20 cholecalciferol (vitamin D3) 1,250 1,250 mcg PO QMONTH 01/09/23 01/09/23 mcg (50,000 unit) tablet dicyclomine 10 mg capsule 10 mg PO Q6H PRN Stomach Upset 01/09/23 01/09/23 ferrous sulfate 325 mg (65 mg 325 mg PO DAILY 01/09/23 01/09/23 iron) tablet furosemide 20 mg tablet 20 mg PO DAILY 01/09/23 01/09/23 gabapentin 100 mg capsule 100 mg PO BID 01/09/23 01/09/23 gabapentin 600 mg tablet 600 mg PO DAILY 01/09/23 01/09/23 levothyroxine 112 mcg tablet 112 mcg PO DAILY 01/09/23 01/09/23 melatonin 10 mg tablet 10 mg PO BEDTIME PRN Sleep 01/09/23 01/09/23 midodrine 10 mg tablet 10 mg PO TID 01/09/23 01/09/23 vit no.95-ferrous 1 tab PO DAILY 01/09/23 01/09/23 fumarate 28 mg-folic acid 800 mcg tablet () trazodone 50 mg tablet 50 mg PO BEDTIME PRN Sleep 01/09/23 01/09/23 Previous Rx's Medication Instructions Recorded acetaminophen 325 mg tablet 650 mg (2 x 325 mg) PO TID #60 tabs 03/29/20 levofloxacin 750 mg tablet 750 mg PO DAILY #8 tabs 01/10/23 levofloxacin 750 mg tablet 750 mg PO Q24H #8 tabs 01/10/23 tramadol 50 mg tablet 50 mg PO Q8H PRN Pain, 01/10/23 Moderate(Pain Scale 4-6) #14 tabs levofloxacin 750 mg tablet 750 mg PO Q24H #6 tabs 02/23/23 Allergies Allergy/AdvReac Type Severity Reaction Status Date / Time dicloxacillin [From DYNAPEN] Allergy Unknown UNKNOWN Verified 12/09/22 09:26 ofloxacin [From FLOXIN] AdvReac Intermediate UPSET Verified 12/09/22 09:26 STOMACH penicillin V AdvReac Unknown Abdominal Verified 12/09/22 09:26 Pain Review of Systems 2 Review of Systems: Constitutional : No Fever, No Chills, No Fatigue ENT/Mouth : No sore throat, No Rhinorrhea Eyes: No Eye Pain, No Swelling, No Redness Cardiovascular : No Chest Pain, No SOB, No Dyspnea on Exertion Respiratory : No Cough, No Sputum Gastrointestinal : No Nausea, No Vomiting, No Diarrhea, No abdominal Pain Genitourinary : No Dysuria, No Urinary Frequency, No Hematuria, pos catheter issue Musculoskeletal : No joint pain, No Myalgias, No Joint Swelling Skin : No Skin Lesions, No rash All other systems reviewed and are negative [facility], [facility] Past Medical History Attestation statement: The following information was validated with the patient. Source: old records reviewed Medical History Pneumonia Urine retention Irreducible left inguinal hernia Autonomic dysfunction Hypothyroidism Hernia Atrial fibrillation Spasms of the hands or feet Spinal cord injury Surgical History S/P tendon repair H/O hemorrhoidectomy S/P IVC filter H/O hernia repair H/O thyroidectomy Family History Family History Sister Diabetes mellitus Social History Social History Household Members: Other Housing: Other Housing Other:: [facility] you presently have visiting nurse or other home services: Yes (wound care) Alcohol intake: never Patient Tobacco Use Status: Never used Tobacco Smoked in Last 30 Days: No Use of substances other than those prescribed or required for medical reasons: No Advance Directives: Yes Advance Directives on File: Yes Advance Directives Date on File: 01/09/23 service: No Physical Exam 2 Vital Signs: Vital Signs: Last Vital Signs Temp 97.6 F 02/23/23 14:48 Pulse 61 02/23/23 14:48 Resp 16 02/23/23 14:48 BP 208/121 H 02/23/23 14:48 Pulse Ox 95 02/23/23 14:48 O2 Del Method Room Air 02/23/23 14:48 BMI result Body Mass Index 32.0 Appearance: Alert. at baseline No acute distress. Eyes: Pupils equal, round and reactive to light. ENT: Pharynx normal. Neck: Normal inspection. Neck supple. CVS: Normal heart rate and rhythm. Pulses normal. Respiratory: No respiratory distress. Breath sounds normal. Abdomen: Soft and non-tender. cath site appears tight and swollen. Skin: Skin warm and dry. Normal skin color. Extremities: No lower extremity edema. No calf ttp Neuro: paraplegic Course Course Course Narrative: hard stick no signs of sepsis can give oral dose same bioavailability Medical Decision Making Medical Decision Making MDM Narrative: 67 yo male with hx of spinal cord injury and paraplegia, UTI, chronic osteo s/p suprapubic 1 year ago here with dislodged catheter - at this time I cannot place a 16F or 14F will need to consult Urology to prevent trauma or issues. Differential Diagnosis Differential Diagnoses: The differential diagnosis associated with the presentation includes pulled catheter, small and closed hole Admission/Observation Consideration of admission/observation: Escalation of care including admission/observation considered no signs of sepsis catheter placed okay to DC home with oral antibiotics Consult Healthcare Provider Management of the patient was discussed with: Money [employer] Clerk (Urology) catheter placed by Dr. Scott Lab Data [facility] Lab Attestation statement: I reviewed the patient's lab results. 02/23/23 15:05 02/23/23 15:05 Labs: Lab Results 02/23/23 Range/Units 15:05 WBC 11.4 H (4.8-10.8) X10*3/uL RBC 4.96 (4.60-5.80) X10*6/uL Hgb 13.6 L (14.0-18.0) g/dl Hct 41.5 L (42.0-52.0) % MCV 83.7 (80.0-98.0) fL MCH 27.4 (27.0-33.0) pg MCHC 32.8 (31.0-36.0) g/dl RDW 16.6 H (11.0-16.0) % Plt Count 234 (160-400) X10*3/uL MPV 8.9 L (9.4-12.4) fL Immature Gran % (Auto) 0.4 (0.0-0.4) % Neut % (Auto) 71.2 (45-73) % Lymph % (Auto) 20.0 (20-40) % [place] % (Auto) 6.2 (2-11) % Eos % (Auto) 1.8 (0-4) % Baso % (Auto) 0.4 (0-2) % Lymph # (Auto) 2.3 (1.2-4.9) X10*3/uL [place] # (Auto) 0.7 (0.1-1.2) X10*3/uL Eos # (Auto) 0.2 (0.0-0.4) X10*3/uL Baso # (Auto) 0.0 (0.0-0.2) X10*3/uL Abs Immat Gran (auto) 0.04 H (0.00-0.03) X10*3/uL Absolute Neuts (auto) 8.1 (2.0-8.3) x10*3/uL Absolute Nucleated RBC 0.000 (0.0-0.012) X10*3/uL Nucleated RBC % (auto) 0.0 (0.0-0.2) /100WBC PT 15.2 H D (11.1-13.3) SEC INR 1.3 H (0.9-1.1) Sodium 140 (135-145) mmol/L Potassium 4.2 (3.3-5.1) mmol/L Chloride 103 (96-108) mmol/L Carbon Dioxide 26 (22-29) mmol/L Anion Gap 15 (12-20) BUN 17 H (9-16) mg/dL Creatinine 0.75 (0.5-1.4) mg/dL Estim Creat Clear Calc 126.0 Estimated GFR > 60 Random Glucose 103 (60-115) mg/dL Calcium 9.8 D (8.4-10.2) mg/dL Urine Color Yellow Urine Appearance Turbid Urine pH 7.5 (5.0-9.0) Ur Specific [place] 1.010 (1.005-1.025) Urine Protein 100 (2+) H (Neg-Trace) mg/dL Urine Glucose (UA) Negative (Negative) mg/dL Urine Ketones Negative (Negative) mg/dL Urine Blood Large (3+) H (Negative) Urine Nitrite Positive H (Negative) Ur Leukocyte Esterase Large (3+) H (Negative) Urine RBC >20 H (0-2) /HPF Urine WBC >50 H (0-5) /HPF Ur Squamous Epith Cells 0-2 (0-2) /HPF Urine Bacteria 4+ (None Seen) Hyaline Casts 3-5 (0-2) /LPF Independent Historian Clinical information obtained from an independent historian. History obtained from or confirmed by: EMS External Record Review External record reviewed: Inpatient record Prescription Management I considered prescription management with: Antibiotic (oral levofloxacin based off prior cultures) Discharge Plan Discharge Clinical Impression: Dislodged [place] catheter Qualifiers: Encounter type: initial encounter Qualified Code(s): T83.021A - Displacement of indwelling urethral catheter, initial encounter Urinary tract infection Qualifiers: Urinary tract infection type: catheter-associated UTI Indwelling urinary catheter type: unspecified Encounter type: initial encounter Qualified Code(s): T83.511A - Infection and inflammatory reaction due to indwelling urethral catheter, initial encounter Patient Disposition: Home, Self-Care Instructions: Urinary Tract Infection in Men (ED), How to Care for Your Suprapubic Catheter (DC) Additional Instructions: take a probiotic while on antibiotic. catheter was placed by urology return for significant bleeding, pain, fevers, vomiting. antibiotic can cause tendon pain or rupture monitor symptoms. follow up with urology in the next 2 to 4 weeks INR 1.3 will need to address with coumadin level. Prescriptions: New levofloxacin 750 mg tablet 750 mg PO Q24H Qty: 6 0RF Rx Instructions: start on 02/24 No Action multivitamin Tablet 1 tab PO DAILY sennosides [senna] 8.6 mg Tablet 17.2 mg PO BEDTIME warfarin 3 mg Tablet 3 mg PO TUTHSA@18 calcium carbonate [Calcium 500] 500 mg calcium (1,250 mg) Tablet 500 mg PO BID ascorbic acid (vitamin C) 500 mg Tablet 500 mg PO BID baclofen 10 mg tablet 20 mg PO TID baclofen 10 mg tablet 40 mg PO BEDTIME warfarin 2 mg Tablet 2 mg PO SUMOWEFR@18 docusate sodium [Colace] 100 mg Capsule 200 mg PO DAILY calcitriol 0.25 mcg capsule 0.25 mcg PO DAILY acetaminophen 325 mg Tablet 650 mg PO TID Qty: 60 0RF Rx Instructions: For 10 days then as needed gabapentin 600 mg tablet 600 mg PO DAILY trazodone 50 mg Tablet 50 mg PO BEDTIME PRN (Reason: Sleep) ferrous sulfate 325 mg (65 mg iron) Tablet 325 mg PO DAILY furosemide 20 mg tablet 20 mg PO DAILY gabapentin 100 mg capsule 100 mg PO BID dicyclomine 10 mg capsule 10 mg PO Q6H PRN (Reason: Stomach Upset) levothyroxine 112 mcg tablet 112 mcg PO DAILY midodrine 10 mg Tablet 10 mg PO TID Rx Instructions: do not give last dose of day after 6PM or within 4 hrs of bedtime PNV cmb#95-ferrous fumarate-FA [] 28 mg iron- 800 mcg Tablet 1 tab PO DAILY melatonin 10 mg Tablet 10 mg PO BEDTIME PRN (Reason: Sleep) cholecalciferol (vitamin D3) 1,250 mcg (50,000 unit) Tablet 1,250 mcg PO QMONTH levofloxacin 750 mg Tablet 750 mg PO Q24H Qty: 8 0RF tramadol 50 mg Tablet 50 mg PO Q8H PRN (Reason: Pain, Moderate(Pain Scale 4-6)) Qty: 14 0RF levofloxacin 750 mg tablet 750 mg PO DAILY Qty: 8 0RF
--- NOTE | 2023-02-23 13:30 | PC.NURSE ---
MD Wilde attempt to replace suprapubic catheter was unsuccessful. will contact urology
--- NOTE | 2023-02-23 13:56 | PC.NURSE ---
bladder scan 481, aware
--- NOTE | 2023-02-23 14:42 | MHC.EDTECH ---
T/w went to check vitals/round on Pt, however Pt in the middle of getting suprapubic catheter replaced by Dr. Jacobo.
[2023-02-23 14:48] VITALS: BP 208/121; PULSE 61; RESP 16; TEMP 36.4; O2SAT 95
--- NOTE | 2023-02-23 14:48 | PM.UROCN ---
History of Present Illness Consult details Consult date: 02/23/23 Narrative: Concerning complaint: Unable to replace suprapubic catheter 67-year-old male. He had history of spinal cord with paraplegia and chronic osteomyelitis Bladder typically managed with suprapubic tube Normally with 18 Maldivian Catheter had been displaced in late January Sixteen Maldivian [place] catheter placed Presents today after [place] catheter fell out yesterday ER staff unable to replace suprapubic tube Typically followed with [facility]rology [facility] Procedure note Suprapubic opening strictured Using a Sensor wire this was able to into the bladder Once the Sensor wire and into the bladder attempt to place 20 Mal[place] tip catheter Unable to be placed due to narrowing of suprapubic tube opening Opening dilated with Homar sounds 20 [place] Robinson tip catheter placed with drainage CPT 22071 Recommend changing Urology office in 1 month Review of Systems Constitutional: Constitutional: Reports as per HPI and Reports no additional constitutional complaints Cardiovascular: Cardiovascular: Reports as per HPI and Reports no additional cardiovascular complaints Respiratory: Respiratory: Reports as per HPI and Reports no additional respiratory complaints Gastrointestinal: Gastrointestinal: Reports as per HPI and Reports no additional gastrointestinal complaints Genitourinary: Genitourinary: Reports as per HPI Musculoskeletal: Musculoskeletal: Reports no additional musculoskeletal complaints and Reports as per HPI Neurologic: Reports system reviewed and no additional complaints, except as documented and Reports as per HPI [facility] Past Medical History Medical History Pneumonia Urine retention Irreducible left inguinal hernia Autonomic dysfunction Hypothyroidism Hernia Atrial fibrillation Spasms of the hands or feet Spinal cord injury Family History Family History Sister Diabetes mellitus Surgical History Surgical History S/P tendon repair H/O hemorrhoidectomy S/P IVC filter H/O hernia repair H/O thyroidectomy Social History Social History Household Members: Other Housing: Other Housing Other:: shelter in [place] Do you presently have visiting nurse or other home services: Yes (wound care) Alcohol intake: never Patient Tobacco Use Status: Never used Tobacco Smoked in Last 30 Days: No Use of substances other than those prescribed or required for medical reasons: No Advance Directives: Yes Advance Directives on File: Yes Advance Directives Date on File: 01/09/23 service: No Meds Allergies Allergy/AdvReac Type Severity Reaction Status Date / Time dicloxacillin [From DYNAPEN] Allergy Unknown UNKNOWN Verified 12/09/22 09:26 ofloxacin [From FLOXIN] AdvReac Intermediate UPSET Verified 12/09/22 09:26 STOMACH penicillin V AdvReac Unknown Abdominal Verified 12/09/22 09:26 Pain Active Medications: Current Medications Levofloxacin (Levaquin) 750 mg in 150 mls @ 100 mls/hr IV ONCE ONE Stop: 02/23/23 16:14 Home Medications Medication Instructions Recorded Confirmed Last Taken Type ascorbic acid (vitamin C) 500 mg 500 mg PO BID 03/23/20 01/09/23 03/23/20 History tablet baclofen 10 mg tablet 20 mg PO TID 03/23/20 01/09/23 03/23/20 History baclofen 10 mg tablet 40 mg PO BEDTIME 03/23/20 01/09/23 03/23/20 History calcitriol 0.25 mcg capsule 0.25 mcg PO DAILY 03/23/20 01/09/23 03/23/20 History calcium carbonate 500 mg calcium 500 mg PO BID 03/23/20 01/09/23 03/23/20 History (1,250 mg) tablet (Calcium 500) docusate sodium 100 mg capsule 200 mg PO DAILY 03/23/20 01/09/23 03/23/20 History (Colace) multivitamin 1 tab PO DAILY 03/23/20 01/09/23 03/23/20 History sennosides 8.6 mg tablet (senna) 17.2 mg PO BEDTIME 03/23/20 01/09/23 03/23/20 History warfarin 2 mg tablet 2 mg PO SUMOWEFR@18 03/23/20 03/23/20 03/23/20 History warfarin 3 mg tablet 3 mg PO TUTHSA@18 03/23/20 03/23/20 03/23/20 History cholecalciferol (vitamin D3) 1,250 1,250 mcg PO QMONTH 01/09/23 01/09/23 Unknown History mcg (50,000 unit) tablet dicyclomine 10 mg capsule 10 mg PO Q6H PRN Stomach Upset 01/09/23 01/09/23 Unknown History ferrous sulfate 325 mg (65 mg 325 mg PO DAILY 01/09/23 01/09/23 Unknown History iron) tablet furosemide 20 mg tablet 20 mg PO DAILY 01/09/23 01/09/23 Unknown History gabapentin 100 mg capsule 100 mg PO BID 01/09/23 01/09/23 Unknown History gabapentin 600 mg tablet 600 mg PO DAILY 01/09/23 01/09/23 Unknown History levothyroxine 112 mcg tablet 112 mcg PO DAILY 01/09/23 01/09/23 Unknown History melatonin 10 mg tablet 10 mg PO BEDTIME PRN Sleep 01/09/23 01/09/23 Unknown History midodrine 10 mg tablet 10 mg PO TID 01/09/23 01/09/23 Unknown History vit no.95-ferrous 1 tab PO DAILY 01/09/23 01/09/23 Unknown History fumarate 28 mg-folic acid 800 mcg tablet () trazodone 50 mg tablet 50 mg PO BEDTIME PRN Sleep 01/09/23 01/09/23 Unknown History Physical Exam Vital Signs: Vital Signs: Last Vital Signs Temp 98.8 F 02/23/23 12:18 Pulse 62 02/23/23 12:18 Resp 20 02/23/23 12:18 BP 179/106 H 02/23/23 12:18 Pulse Ox 96 02/23/23 12:18 O2 Del Method Room Air 02/23/23 12:18 BMI result Body Mass Index 32.0 Const: General: cooperative, healthy appearing, comfortable and no acute distress Orientation/consciousness: patient oriented x3 HEENT: Face and sinus: Yes normal facial exam Mouth: moist mucous membranes Neck: Neck: Yes normal visual inspection, Yes full ROM and Yes trachea midline Chest: Chest palpation & inspection: normal inspection of the chest Resp: Effort & Inspection: normal respiratory effort, able to speak in complete sentences and no respiratory distress GI: Inspection: Yes normal to inspection Back/Spine/Pelvis: Cervical Spine: normal cervical lordosis Thoracic/Lumbar Spine: thoracic and lumbar spine normal to inspection Skin: General skin exam: no rashes or lesions noted Neuro: General: patient oriented x3, tone normal and moves all extremities Extrem: General: Yes normal to inspection and Yes capillary refill normal Results Labs Labs: All other labs normal. Assessment and Plan (1) Urinary tract infection: Qualifiers: Encounter type: initial encounter Indwelling urinary catheter type: unspecified Urinary tract infection type: catheter-associated UTI Qualified Code(s): T83.511A - Infection and inflammatory reaction due to indwelling urethral catheter, initial encounter; N39.0 - Urinary tract infection, site not specified Status: Acute (2) Suprapubic catheter dysfunction: Qualifiers: Encounter type: initial encounter Qualified Code(s): T83.010A - Breakdown (mechanical) of cystostomy catheter, initial encounter Status: Acute Plan See procedure note Time Spent With Patient Time: Total time managing care of this patient today ____ minutes. Procedures Date of Service Date of Service: 02/23/23
[2023-02-23 15:10] LABS: Basophils Percent Auto 0.4 % (0-2); Eosinophils Absolute Auto 0.2 X10*3/uL (0.0-0.4); Eosinophils Percent Auto 1.8 % (0-4); Hematocrit 41.5 % (42.0-52.0); Hemoglobin 13.6 g/dl (14.0-18.0); Imm Gran Abs Auto 0.04 X10*3/uL (0.00-0.03); Imm Gran Pct Auto 0.4 % (0.0-0.4); Lymphocytes Absolute Auto 2.3 X10*3/uL (1.2-4.9); MANUAL DIFF FLAG NO; Mean Corpuscular HGB Conc 32.8 g/dl (31.0-36.0); Mean Corpuscular Hemoglobin 27.4 pg (27.0-33.0); Mean Corpuscular Volume 83.7 fL (80.0-98.0); Mean Platelet Volume 8.9 fL (9.4-12.4); Monocytes Absolute Auto 0.7 X10*3/uL (0.1-1.2); Monocytes Percent Auto 6.2 % (2-11); Neutrophils Absolute Auto 8.1 x10*3/uL (2.0-8.3); Neutrophils Percent Auto 71.2 % (45-73); Platelet Count 234 X10*3/uL (160-400); Red Blood Count 4.96 X10*6/uL (4.60-5.80); Red Cell Distribution Width 16.6 % (11.0-16.0); White Blood Count 11.4 X10*3/uL (4.8-10.8)
[2023-02-23 15:14] LABS: Appearance Urine Turbid; Glucose Urine UA Negative (Negative); Leukocyte Esterase Urine Large (3+) (Negative); Nitrite Urine Positive (Negative); PH 7.5 (5.0-9.0); UMIC TRIGGER UACC YES; Urine Blood Large (3+) (Negative); Urine Ketones Negative (Negative); Urine Protein 100 (2+) mg/dL (Neg-Trace)
[2023-02-23 15:15] LABS: Color Urine Yellow
[2023-02-23 15:19] LABS: Bacteria Urine 4+ (None Seen); RBC Urine >20 /HPF (0-2); Squamous Epithelial Cell Urine 0-2 /HPF (0-2); UACC Culture Trigger YES; WBC Urine >50 /HPF (0-5)
[2023-02-23 15:21] LABS: INTERNATIONAL NORM RATIO 1.3 (0.9-1.1); Prothrombin Time 15.2 SEC (11.1-13.3)
[2023-02-23 15:25] LABS: Anion Gap 15 (12-20); Blood Urea Nitrogen 17 mg/dL (9-16); Calcium 9.8 mg/dL (8.4-10.2); Carbon Dioxide 26 mmol/L (22-29); Chloride 103 mmol/L (96-108); Estimated Glomerular Filt Rate > 60; Glucose Random 103 mg/dL (60-115); Potassium 4.2 mmol/L (3.3-5.1); Sodium 140 mmol/L (135-145)
[2023-02-23] MEDS: levoFLOXacin/D5W 750 MG/150 ML PIGGYBACK 100 MG IV (15:39)
[2023-02-23 16:03] VITALS: BP 119/77; PULSE 60; RESP 16; TEMP 36.4; O2SAT 95
[2023-02-24 00:41] VITALS: BP 143/78; PULSE 65; RESP 18; O2SAT 95
== END 2023-02-24 00:42 | disposition home or self-care (01) ==
PROVIDERS: Emergency Provider Emergency Medicine; PCP Family Medicine
DX: T83.021A Displacement of indwelling urethral catheter, initial encounter (principal); Y73.8 Miscellaneous gastroenterology and urology devices associated with adverse incidents, not elsewhere classified; Y92.9 Unspecified place or not applicable; T83.511A Infection and inflammatory reaction due to indwelling urethral catheter, initial encounter; N39.0 Urinary tract infection, site not specified; B96.89 Other specified bacterial agents as the cause of diseases classified elsewhere; I48.91 Unspecified atrial fibrillation; G82.20 Paraplegia, unspecified; Z79.899 Other long term (current) drug therapy
CPT/HCPCS: 36415; 80048; 81001; 85025; 85610; 87086; 87088; 87186; 96365; 96366; 99284; J1956

== ENCOUNTER → 2023-02-23 12:39 | Outpatient (BNV) | payer MEDICARE, MEDICAID, SELFPAY | PROVIDERS: Emergency Provider Emergency Medicine; PCP Family Medicine; Visit Provider Urology | DX: T83.511A Infection and inflammatory reaction due to indwelling urethral catheter, initial encounter (principal); N39.0 Urinary tract infection, site not specified; T83.010A Breakdown (mechanical) of cystostomy catheter, initial encounter | CPT/HCPCS: 51102; 99284 ==

== ENCOUNTER 2023-04-18 14:05 | Emergency (ER) | payer MEDICARE, MEDICAID, SELFPAY ==
--- NOTE | ~2023-04-18 | XR_ITS ---
EXAMINATION: XR SHOULDER, RIGHT XR HUMERUS, RIGHT XR ELBOW, RIGHT CLINICAL INFORMATION: Pain COMPARISON: None available. TECHNIQUE: 4 views of the right shoulder 4 views of the right humerus 3 views of the right elbow FINDINGS: No acute visible fracture or dislocation. Severe degenerative arthropathy of the right glenohumeral joints. Moderate degenerative changes of the right acromioclavicular joint. Degenerative changes of the elbow. Joint space alignment are otherwise maintained. Soft tissues are unremarkable. Prominent atherosclerotic calcifications are noted. Partially visualized chest pacer lead. XR/XR humerus RT IMPRESSION: 1. No acute visible fracture or dislocation. 2. Severe degenerative arthropathy of the right glenohumeral joint. 3. Moderate degenerative changes of the right acromioclavicular joint.
--- NOTE | ~2023-04-18 | XR_ITS ---
EXAMINATION: XR SHOULDER, RIGHT XR HUMERUS, RIGHT XR ELBOW, RIGHT CLINICAL INFORMATION: Pain COMPARISON: None available. TECHNIQUE: 4 views of the right shoulder 4 views of the right humerus 3 views of the right elbow FINDINGS: No acute visible fracture or dislocation. Severe degenerative arthropathy of the right glenohumeral joints. Moderate degenerative changes of the right acromioclavicular joint. Degenerative changes of the elbow. Joint space alignment are otherwise maintained. Soft tissues are unremarkable. Prominent atherosclerotic calcifications are noted. Partially visualized chest pacer lead. XR/XR elbow RT min 3V IMPRESSION: 1. No acute visible fracture or dislocation. 2. Severe degenerative arthropathy of the right glenohumeral joint. 3. Moderate degenerative changes of the right acromioclavicular joint.
--- NOTE | ~2023-04-18 | XR_ITS ---
EXAMINATION: XR SHOULDER, RIGHT XR HUMERUS, RIGHT XR ELBOW, RIGHT CLINICAL INFORMATION: Pain COMPARISON: None available. TECHNIQUE: 4 views of the right shoulder 4 views of the right humerus 3 views of the right elbow FINDINGS: No acute visible fracture or dislocation. Severe degenerative arthropathy of the right glenohumeral joints. Moderate degenerative changes of the right acromioclavicular joint. Degenerative changes of the elbow. Joint space alignment are otherwise maintained. Soft tissues are unremarkable. Prominent atherosclerotic calcifications are noted. Partially visualized chest pacer lead. XR/XR shoulder RT min 2V IMPRESSION: 1. No acute visible fracture or dislocation. 2. Severe degenerative arthropathy of the right glenohumeral joint. 3. Moderate degenerative changes of the right acromioclavicular joint.
[2023-04-18 14:14] VITALS: BP 139/84; BP 162/90; PULSE 64; PULSE 65; RESP 20; TEMP 36.4; O2SAT 94; O2SAT 97; BMI 28.0
--- NOTE | 2023-04-18 15:00 | PC.NURSE ---
Pt bibems from shelter with c/o right shoulder pain x's 6 months. Pt denies trauma to his right shoulder and states this is something that has been gradually getting worse. Pt states that he was seen at [facility] for a biopsy of my right shoulder bone last month. Pt is unable to provide information on results of this biopsy. Staff member from shelter is at bedside and is not able to provide results of this biopsy either. Pt denies any other complaints (CP, Abdominal pain, SOB). Pt feels he does not need to be in the ER as he states I do not know why they sent me in, this has been going on for a long time now . On assessment of RUE, pt ROM is extremely limited secondary to pain; pain is also felt on palpation of this area. Pt rates pain an 8/10 on a 0-10 pain scale. Care ongoing.
[2023-04-18 15:04] VITALS: BP 131/80; PULSE 60; RESP 18; TEMP 36.4; O2SAT 93
[2023-04-18 15:37] VITALS: BP 99/64; PULSE 60; RESP 15; TEMP 35.7; O2SAT 94
--- NOTE | 2023-04-18 17:23 | ED_ITS ---
HPI - Extremity Problem General Chief complaint: Extremity Problem Stated complaint: R SHOULDER PAIN X6 MOS,BEDBOUND,FROM WOUND CARE DR Time Seen by Provider: 04/18/23 15:12 History of Present Illness HPI Narrative: 67 y/o M patient; PMH C5 - C6 spinal cord injury with lower extremity bilateral paralysis s/p colostomy and suprapubic catheter, hypothyroidism, atrial fibrillation on Coumadin, chronic sacral decubitus ulcer followed by the wound care center, chronic right shoulder pain; presents from wound care center with report of several months of right shoulder pain. The patient states he finished his appointment at the wound care center when they asked him if he was having any other pain, the patient reported right shoulder pain so was transported to the ED for further evaluation. He denies recent injury or trauma. He does report he relies more on his right upper extremity than his left upper extremity. He otherwise denies: chest pain, SOB, cough/congestion, nausea/vomiting, abdominal pain, fever or chills. Related Data Home Medications Medication Instructions Recorded Confirmed ascorbic acid (vitamin C) 500 mg 500 mg PO BID 03/23/20 01/09/23 tablet baclofen 10 mg tablet 20 mg PO TID 03/23/20 01/09/23 baclofen 10 mg tablet 40 mg PO BEDTIME 03/23/20 01/09/23 calcitriol 0.25 mcg capsule 0.25 mcg PO DAILY 03/23/20 01/09/23 calcium carbonate 500 mg calcium 500 mg PO BID 03/23/20 01/09/23 (1,250 mg) tablet (Calcium 500) docusate sodium 100 mg capsule 200 mg PO DAILY 03/23/20 01/09/23 (Colace) multivitamin 1 tab PO DAILY 03/23/20 01/09/23 sennosides 8.6 mg tablet (senna) 17.2 mg PO BEDTIME 03/23/20 01/09/23 warfarin 2 mg tablet 2 mg PO SUMOWEFR@18 03/23/20 03/23/20 warfarin 3 mg tablet 3 mg PO TUTHSA@18 03/23/20 03/23/20 cholecalciferol (vitamin D3) 1,250 1,250 mcg PO QMONTH 01/09/23 01/09/23 mcg (50,000 unit) tablet dicyclomine 10 mg capsule 10 mg PO Q6H PRN Stomach Upset 01/09/23 01/09/23 ferrous sulfate 325 mg (65 mg 325 mg PO DAILY 01/09/23 01/09/23 iron) tablet furosemide 20 mg tablet 20 mg PO DAILY 01/09/23 01/09/23 gabapentin 100 mg capsule 100 mg PO BID 01/09/23 01/09/23 gabapentin 600 mg tablet 600 mg PO DAILY 01/09/23 01/09/23 levothyroxine 112 mcg tablet 112 mcg PO DAILY 01/09/23 01/09/23 melatonin 10 mg tablet 10 mg PO BEDTIME PRN Sleep 01/09/23 01/09/23 midodrine 10 mg tablet 10 mg PO TID 01/09/23 01/09/23 vit no.95-ferrous 1 tab PO DAILY 01/09/23 01/09/23 fumarate 28 mg-folic acid 800 mcg tablet () trazodone 50 mg tablet 50 mg PO BEDTIME PRN Sleep 01/09/23 01/09/23 Previous Rx's Medication Instructions Recorded acetaminophen 325 mg tablet 650 mg (2 x 325 mg) PO TID #60 tabs 03/29/20 levofloxacin 750 mg tablet 750 mg PO DAILY #8 tabs 01/10/23 levofloxacin 750 mg tablet 750 mg PO Q24H #8 tabs 01/10/23 tramadol 50 mg tablet 50 mg PO Q8H PRN Pain, 01/10/23 Moderate(Pain Scale 4-6) #14 tabs levofloxacin 750 mg tablet 750 mg PO Q24H #6 tabs 02/23/23 cephalexin 500 mg capsule 500 mg PO QID 7 days #28 caps 02/27/23 Allergies Allergy/AdvReac Type Severity Reaction Status Date / Time dicloxacillin [From DYNAPEN] Allergy Unknown UNKNOWN Verified 12/09/22 09:26 ofloxacin [From FLOXIN] AdvReac Intermediate UPSET Verified 12/09/22 09:26 STOMACH penicillin V AdvReac Unknown Abdominal Verified 12/09/22 09:26 Pain Review of Systems Review of Systems: Yes all other systems are reviewed and are negative [facility] Past Medical History Attestation statement: The following information was validated with the patient. Source: old records reviewed Medical History Pneumonia Urine retention Irreducible left inguinal hernia Autonomic dysfunction Hypothyroidism Hernia Atrial fibrillation Spasms of the hands or feet Spinal cord injury Surgical History S/P tendon repair H/O hemorrhoidectomy S/P IVC filter H/O hernia repair H/O thyroidectomy Family History Family History Sister Diabetes mellitus Social History Social History Household Members: Other Housing: Other Housing Other:: skilled nursing in [place] Do you presently have visiting nurse or other home services: Yes (wound care) Alcohol intake: former Patient Tobacco Use Status: Never used Tobacco Smoked in Last 30 Days: No Use of substances other than those prescribed or required for medical reasons: No Advance Directives: Yes Advance Directives on File: Yes Advance Directives Date on File: 01/09/23 service: No Physical Exam Vital Signs: Vital Signs: Last Vital Signs Temp 97.6 F 04/18/23 19:05 Pulse 62 04/18/23 19:05 Resp 20 04/18/23 19:05 BP 91/58 L 04/18/23 19:05 Pulse Ox 97 04/18/23 19:05 O2 Del Method Room Air 04/18/23 19:05 BMI result Body Mass Index 28.0 Patient is afebrile and hemodyamically stable. Const: General: cooperative and no acute distress Chest: Chest palpation & inspection: normal inspection of the chest and no tenderness Resp: Effort & Inspection: normal respiratory effort and no respiratory distress Auscultation: clear to auscultation bilaterally Cardio: Rate: Other (irregularly irregular ) GI: Palpation (GI): Soft to palpation, nontender and No Rebound tenderness present Auscultation: normal bowel sounds Extrem: Other: Right proximal humeral head tenderness, no tenderness of right clavicle, scapula, or distal humerus/elbow. Able to range anteriorly to 90 degrees. Laterally to 30 degrees. Pain with supination/pronation. NVI. Soft compartments. Skin unremarkable. Bilateral lower extremity paralysis Course Course Course Narrative: Patient is afebrile and hemodynamically stable. Discussed with patient we can obtain XRs to assess for bony damage, however suspect patient's symptoms 2/2 to muscular strain. Recommended patient follow up with PCP given length of symptoms for possible PT referral +/- MRI, and will also refer to orthopedics. Ordered XR Right Shoulder, Humerus, Elbow. Reevaluation(s) Reevaluation #1: Patient's caregiver at the skilled nursing at bedside. Reports patient had a recent biopsy of his right upper extremity to r/o malignancy which was negative. Patient is pending follow up with orthopedics in early May and a PET scan is in plan to be scheduled. XRs noted by radiology as degenerative disease without fx or dislocation. Plan: Discharge to home with PCP and orthopedic follow up Return precautions given Medications Administered Discontinued Medications Generic Name Dose Route Start Last Admin Trade Name Freq PRN Reason Stop Dose Admin Acetaminophen 975 mg 04/18/23 17:22 04/18/23 18:24 Acetaminophen 325 Mg Tablet PO 04/18/23 17:23 975 mg ONCE ONE Administration Discharge Plan Discharge Clinical Impression: Arm pain, right Patient Disposition: Home, Self-Care Instructions: Arm Pain (ED) Additional Instructions: As we discussed, you were seen today for right arm pain. Your XRs of your shoulder, upper arm, and elbow did not show any fractures - there was significant degenerative disease. Please follow up with your PCP within 1 week to discuss your recent ED visit. Follow up with Orthopedics in early may as previously scheduled. Return to the ED for worsening pain. Prescriptions: No Action multivitamin Tablet 1 tab PO DAILY sennosides [senna] 8.6 mg Tablet 17.2 mg PO BEDTIME warfarin 3 mg Tablet 3 mg PO TUTHSA@18 calcium carbonate [Calcium 500] 500 mg calcium (1,250 mg) Tablet 500 mg PO BID ascorbic acid (vitamin C) 500 mg Tablet 500 mg PO BID baclofen 10 mg tablet 20 mg PO TID baclofen 10 mg tablet 40 mg PO BEDTIME warfarin 2 mg Tablet 2 mg PO SUMOWEFR@18 docusate sodium [Colace] 100 mg Capsule 200 mg PO DAILY calcitriol 0.25 mcg capsule 0.25 mcg PO DAILY acetaminophen 325 mg Tablet 650 mg PO TID Qty: 60 0RF Rx Instructions: For 10 days then as needed gabapentin 600 mg tablet 600 mg PO DAILY trazodone 50 mg Tablet 50 mg PO BEDTIME PRN (Reason: Sleep) ferrous sulfate 325 mg (65 mg iron) Tablet 325 mg PO DAILY furosemide 20 mg tablet 20 mg PO DAILY gabapentin 100 mg capsule 100 mg PO BID dicyclomine 10 mg capsule 10 mg PO Q6H PRN (Reason: Stomach Upset) levothyroxine 112 mcg tablet 112 mcg PO DAILY midodrine 10 mg Tablet 10 mg PO TID Rx Instructions: do not give last dose of day after 6PM or within 4 hrs of bedtime PNV cmb#95-ferrous fumarate-FA [] 28 mg iron- 800 mcg Tablet 1 tab PO DAILY melatonin 10 mg Tablet 10 mg PO BEDTIME PRN (Reason: Sleep) cholecalciferol (vitamin D3) 1,250 mcg (50,000 unit) Tablet 1,250 mcg PO QMONTH levofloxacin 750 mg Tablet 750 mg PO Q24H Qty: 8 0RF tramadol 50 mg Tablet 50 mg PO Q8H PRN (Reason: Pain, Moderate(Pain Scale 4-6)) Qty: 14 0RF levofloxacin 750 mg tablet 750 mg PO DAILY Qty: 8 0RF levofloxacin 750 mg tablet 750 mg PO Q24H Qty: 6 0RF Rx Instructions: start on 02/24 cephalexin 500 mg capsule 500 mg PO QID 7 Days Qty: 28 0RF
[2023-04-18] MEDS: Acetaminophen 325 MG TABLET 975 MG PO (18:24)
[2023-04-18 19:05] VITALS: BP 91/58; PULSE 62; RESP 20; TEMP 36.4; O2SAT 97
== END 2023-04-18 23:24 | disposition home or self-care (01) ==
PROVIDERS: Emergency Provider Emergency Medicine; PCP Family Medicine
DX: M79.601 Pain in right arm (principal)
CPT/HCPCS: 73030; 73060; 73080; 99283; 99284

== ENCOUNTER 2023-07-19 15:10 | Outpatient (AMB) | payer MEDICARE, MEDICAID, SELFPAY ==
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
[2023-07-19 15:25] VITALS: BP 144/58; PULSE 68; RESP 16; O2SAT 96; BMI 28.0
== END 2023-07-19 15:38 | disposition home or self-care (01) ==
PROVIDERS: PCP Family Medicine; Visit Provider Anesthesiology
DX: G82.54 Quadriplegia, C5-C7 incomplete (principal); M19.011 Primary osteoarthritis, right shoulder; M19.111 Post-traumatic osteoarthritis, right shoulder; S46.001S Unspecified injury of muscle(s) and tendon(s) of the rotator cuff of right shoulder, sequela; M75.101 Unspecified rotator cuff tear or rupture of right shoulder, not specified as traumatic; G89.4 Chronic pain syndrome
CPT/HCPCS: 99204

== ENCOUNTER 2023-07-19 15:10 | Outpatient (REF) | payer MEDICARE, MEDICAID, SELFPAY ==
--- NOTE | ~2023-07-19 | XR_ITS ---
EXAMINATION: XR SHOULDER, RIGHT CLINICAL INFORMATION: Follow-up. Pain. COMPARISON: 04/18/2023. TECHNIQUE: AP external rotation, Grashey, scapular Y, and axillary views of the right shoulder. FINDINGS: Severe glenohumeral osteoarthritis is characterized by complete joint space narrowing with marginal osteophytes, articular sclerosis, and articular remodeling. There is mild to moderate acromioclavicular osteoarthritis. No fracture or dislocation. There is cephalad subluxation of the humeral head on a few views, raising the possibility of a rotator cuff tear. Soft tissues are unremarkable. No soft tissue calcifications. XR/XR shoulder RT min 2V IMPRESSION: 1. Severe glenohumeral osteoarthritis. 2. Mild to moderate acromioclavicular osteoarthritis. 3. Cephalad subluxation of the humeral head on a few views, raising the possibility of a rotator cuff tear. Consider correlation with an MRI of the shoulder without contrast if warranted, particularly if there is associated weakness.
== END 2023-07-19 15:11 | disposition home or self-care (01) ==
LOC: HO.XRAY 15:10
PROVIDERS: PCP Family Medicine; Visit Provider Anesthesiology
DX: M19.111 Post-traumatic osteoarthritis, right shoulder (principal); M75.101 Unspecified rotator cuff tear or rupture of right shoulder, not specified as traumatic; G82.54 Quadriplegia, C5-C7 incomplete; G89.4 Chronic pain syndrome; Z99.3 Dependence on wheelchair
CPT/HCPCS: 73030; 99202

== ENCOUNTER 2023-08-15 06:23 | Outpatient (REF) | payer MEDICARE, MEDICAID, SELFPAY ==
--- NOTE | ~2023-08-15 | FL_ITS ---
EXAMINATION: XR FLUOROSCOPY WITH IMAGES CLINICAL INFORMATION: Primary osteoarthritis right shoulder. COMPARISON: Right shoulder 07/19/2023 TECHNIQUE: Fluoroscopy Supervised By: Dr. Irma Juarez Fluoroscopy Time: 11.6 seconds Cumulative Dose: 2.5312 mGy-cm DAP: 0.5414 Gy-cm2 Images: 2. FINDINGS: A needle is seen overlying the superior right humeral head with a single image that demonstrates contrast. Please see Dr. Irma Juarez's report for complete procedural details. FL/FL guidance in treatment room IMPRESSION: Fluoroscopy and spot films provided during right shoulder injection.
== END 2023-08-15 06:24 | disposition home or self-care (01) ==
LOC: CF 06:23
PROVIDERS: Visit Provider Anesthesiology
DX: M19.111 Post-traumatic osteoarthritis, right shoulder (principal); S46.001S Unspecified injury of muscle(s) and tendon(s) of the rotator cuff of right shoulder, sequela; G89.4 Chronic pain syndrome
CPT/HCPCS: 20610; J2795; J3301; Q9967

== ENCOUNTER 2023-08-15 15:10 | Outpatient (AMB) | payer MEDICARE, MEDICAID, SELFPAY ==
[2023-08-15 15:48] VITALS: BP 128/70; PULSE 69; RESP 20; O2SAT 94; BMI 29.2
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
[2023-08-15 15:49] VITALS: BP 140/80
== END 2023-08-15 15:47 | disposition home or self-care (01) ==
LOC: HO.PMCPRC 15:10
PROVIDERS: PCP Family Medicine; Visit Provider Anesthesiology
DX: G89.4 Chronic pain syndrome (principal); M19.111 Post-traumatic osteoarthritis, right shoulder; S46.001S Unspecified injury of muscle(s) and tendon(s) of the rotator cuff of right shoulder, sequela; M19.011 Primary osteoarthritis, right shoulder
CPT/HCPCS: 20610; 77002

== ENCOUNTER 2023-09-14 15:49 | Outpatient (AMB) | payer MEDICARE, MEDICAID, SELFPAY ==
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
[2023-09-14 16:07] VITALS: BP 116/60; PULSE 70; RESP 14; O2SAT 94; BMI 29.2
== END 2023-09-14 16:06 | disposition home or self-care (01) ==
PROVIDERS: PCP Family Medicine; Visit Provider Anesthesiology
DX: G82.54 Quadriplegia, C5-C7 incomplete (principal); M19.011 Primary osteoarthritis, right shoulder; M19.111 Post-traumatic osteoarthritis, right shoulder; S46.001S Unspecified injury of muscle(s) and tendon(s) of the rotator cuff of right shoulder, sequela; M75.101 Unspecified rotator cuff tear or rupture of right shoulder, not specified as traumatic; G89.4 Chronic pain syndrome
CPT/HCPCS: 99213

== ENCOUNTER → 2023-09-14 15:49 | Outpatient (BNVA) | payer MEDICARE, MEDICAID, SELFPAY | PROVIDERS: PCP Family Medicine; Visit Provider Anesthesiology | DX: M19.011 Primary osteoarthritis, right shoulder (principal); M19.111 Post-traumatic osteoarthritis, right shoulder; M75.101 Unspecified rotator cuff tear or rupture of right shoulder, not specified as traumatic; G82.54 Quadriplegia, C5-C7 incomplete; S46.001S Unspecified injury of muscle(s) and tendon(s) of the rotator cuff of right shoulder, sequela; G89.4 Chronic pain syndrome | CPT/HCPCS: 99212 ==

== ENCOUNTER 2023-11-26 11:18 | Inpatient (IN) | payer MEDICARE, MEDICAID, SELFPAY ==
[2023-11-26] VITALS (16 sets, daily range): BP systolic 86–139; BP diastolic 46–88; PULSE 60–92; RESP 10–19; TEMP 36.4–37.6; O2SAT 87–97; BMI 34.1
--- NOTE | 2023-11-26 | ECG_ITS ---
Test Reason : DYSPNEA Blood Pressure : / mmHG Vent. Rate : 073 BPM Atrial Rate : 068 BPM P-R Int : 000 ms QRS Dur : 124 ms QT Int : 432 ms P-R-T Axes : 000 -34 013 degrees QTc Int : 475 ms Ventricular-paced rhythm Abnormal ECG When compared with ECG of 08-JAN-2023 21:04, Vent. rate has increased BY 12 BPM Referred By: Generic ED Physician Electronically Signed By:JOSIE FONTENOT MD
--- NOTE | ~2023-11-26 | XR_ITS ---
EXAMINATION: XR CHEST CLINICAL INFORMATION: Shortness of breath COMPARISON: Previous chest x-ray most recent January 2023 TECHNIQUE: Frontal view of the chest was obtained. FINDINGS: The cardiac silhouette is enlarged but stable. Left single-chamber pacemaker with lead projecting over the right ventricle. Lungs are clear. No pleural effusion or pneumothorax. Degenerative changes of the spine and shoulders. XR/XR chest 1V IMPRESSION: Stable enlargement of the cardiac silhouette. No evidence for acute disease in the chest.
--- NOTE | ~2023-11-26 | CT_ITS ---
EXAMINATION: CT ANGIOGRAM OF THE CHEST WITH AND WITHOUT CONTRAST (CT PULMONARY ANGIOGRAM FOR PE) CLINICAL INFORMATION: Reason for Exam Hypoxia COMPARISON: Previous chest x-ray from earlier the same day TECHNIQUE: Prior to contrast administration, noncontrast localization images were obtained. Subsequently, multidetector volumetric imaging was performed from the thoracic inlet to below the diaphragms following the administration of 85 mL Omnipaque 350 intravenous contrast. No contrast reaction reported Sagittal, coronal, and MIP oblique sagittal reformatted images were obtained on the CT workstation, uploaded to PACS, and reviewed. This CT examination was performed using dose optimization techniques as appropriate, variously including the following: *Automated exposure control *Adjustment of mA and/or kV according to patient size (this includes techniques or standardized protocols for targeted exams where dose is matched to indication/reason for exam; i.e. extremities or head) *Use of iterative reconstruction technique Total exam dose-length product 523 mGy-cm FINDINGS: QUALITY OF STUDY/CONTRAST BOLUS: Satisfactory. PULMONARY ARTERIES: No pulmonary emboli. THORACIC AORTA: No aneurysm. LUNG: There is significant soft tissue opacification of the right mainstem bronchus and bilateral lower lobe bronchi, right greater than left. There is bilateral lower lobe atelectasis/infiltrate, right greater than left. The lungs are otherwise clear. PLEURA: No pleural effusion or pneumothorax. MEDIASTINUM: The heart is enlarged. In particular, there is enlargement of the left atrium. There is a left subclavian single chamber pacemaker with tip projecting over the right ventricle.. No pericardial effusion. No hilar or mediastinal lymphadenopathy. No evidence of septal bowing or right heart strain. CORONARY ARTERY CALCIFICATION: None visualized on this study. CHEST WALL/AXILLA: No axillary or internal mammary lymphadenopathy. OSSEOUS STRUCTURES: No acute or suspicious osseous abnormality. Degenerative changes of the spine. UPPER ABDOMEN: Unremarkable. No reflux of contrast into the hepatic veins to suggest elevated right heart pressures. CT/CT angio chest PE protocol IMPRESSION: No evidence of pulmonary embolism. Abnormal endobronchial soft tissue opacification of the right mainstem bronchus and bilateral lower lobe bronchi, right greater than left. Bilateral lower lobe atelectasis/pneumonia, right greater than left. Enlarged heart. In particular, the left atrium is enlarged. VTE:
--- NOTE | ~2023-11-26 | XR_ITS ---
EXAMINATION: XR CHEST CLINICAL INFORMATION: Pneumonia. COMPARISON: Chest radiograph dated 11/28/2023; CTA chest dated 11/26/2023. TECHNIQUE: Frontal view of the chest was obtained. FINDINGS: There is stable marked cardiomegaly. A pacemaker lead is unchanged position shows no fracture. There is mild to moderate, increased airspace disease in the mid right lung. Minimal airspace disease is suspected in the mid to lower left lung. No pleural effusion or pneumothorax is seen. There is no acute osseous abnormality. XR/XR chest 1V IMPRESSION: There is airspace disease within the mid to lower lungs bilaterally, right greater than left. Recommend continued radiographic follow-up to full clearance.
--- NOTE | ~2023-11-26 | XR_ITS ---
EXAMINATION: XR CHEST CLINICAL INFORMATION: Pneumonia, follow-up COMPARISON: Chest radiograph 11/26/2023, 01/08/2023 CT angiogram of the chest 11/26/2023 TECHNIQUE: AP upright portable view of the chest was obtained. 9:15 AM FINDINGS: The patient is rotated. Enlarged cardiac silhouette, now are stable compared to the prior study. Left chest single lead pacemaker with lead projecting over the right ventricle is again noted. There is slight patchy opacity in the right perihilar area. Bibasilar atelectasis is noted. No acute osseous abnormality. XR/XR chest 1V IMPRESSION: Slight patchy opacity in the right perihilar area. Findings may represent pneumonia. Follow-up to resolution is recommended.
--- NOTE | 2023-11-26 11:26 | PC.RT ---
RT called to bedside to assess pt brought in via EMS. Pt found to be 90% on RA. Lungs rhonchi bilateral, no wheezing noted. RT suctioned pt w/ yunieruer and got small amount of white secretions, improvement in rhonchi noted.
[2023-11-26 11:57] LABS: MANUAL DIFF FLAG NO
[2023-11-26 11:59] LABS: Basophils Percent Auto 0.2 % (0-2); Eosinophils Absolute Auto 0.2 X10*3/uL (0.0-0.4); Eosinophils Percent Auto 2.5 % (0-4); Hematocrit 36.1 % (42.0-52.0); Hemoglobin 11.9 g/dl (14.0-18.0); Imm Gran Abs Auto 0.03 X10*3/uL (0.00-0.03); Imm Gran Pct Auto 0.3 % (0.0-0.4); Lymphocytes Absolute Auto 1.6 X10*3/uL (1.2-4.9); Lymphocytes Percent Auto 17.9 % (20-40); Mean Corpuscular Volume 90.9 fL (80.0-98.0); Mean Platelet Volume 9.1 fL (9.4-12.4); Monocytes Absolute Auto 0.6 X10*3/uL (0.1-1.2); Monocytes Percent Auto 6.7 % (2-11); Neutrophils Absolute Auto 6.3 x10*3/uL (2.0-8.3); Neutrophils Percent Auto 72.4 % (45-73); Platelet Count 168 X10*3/uL (160-400); Red Blood Count 3.97 X10*6/uL (4.60-5.80); Red Cell Distribution Width 16.2 % (11.0-16.0); White Blood Count 8.7 X10*3/uL (4.8-10.8)
[2023-11-26 12:04] LABS: Venous Blood Gas Refer to POC result
[2023-11-26 12:04] LABS: VBG Base Excess 6.8 mmol/L; VBG HCO3 31 mmol/L (22-26); VBG pCO2 43 mmHg; VBG pH 7.46 (7.32-7.43); VBG pO2 61 mmHg
[2023-11-26 12:05] LABS: INTERNATIONAL NORM RATIO 2.2 (0.9-1.1); Prothrombin Time 26.5 SEC (11.1-13.3)
[2023-11-26 12:08] LABS: Partial Thromboplastin Time 31.6 SEC (26.0-36.8)
[2023-11-26 12:09] LABS: Lactic Acid 0.9 mmol/L (0.5-2.0)
--- NOTE | 2023-11-26 12:11 | ED_ITS ---
HPI - General Adult General Chief complaint: Dyspnea Stated complaint: DIFF BREATHING, COUGH PER EMS Time Seen by Provider: 11/26/23 12:00 Source: patient and EMS Mode of arrival: EMS Limitations: no limitations History of Present Illness ED Provider: DR. 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 Sent from the halfway for evaluation of productive cough, patient stated that the only complaint he has is froggy throat. Patient found to be hypoxic at the halfway at 88% room air that was improved with 2 L of supplemental oxygen via nasal cannula. No known history of asthma or COPD. No fever, no chills, no abdominal pain. Related Data Home Medications ?Medication ?Instructions ?Recorded ?Confirmed ascorbic acid (vitamin C) 500 mg 500 mg PO BID 03/23/20 01/09/23 tablet baclofen 10 mg tablet 20 mg PO TID 03/23/20 01/09/23 baclofen 10 mg tablet 40 mg PO BEDTIME 03/23/20 01/09/23 calcitriol 0.25 mcg capsule 0.25 mcg PO DAILY 03/23/20 01/09/23 calcium carbonate (Calcium 500) 500 mg PO BID 03/23/20 01/09/23 docusate sodium 100 mg capsule 200 mg PO DAILY 03/23/20 01/09/23 (Colace) multivitamin 1 tab PO DAILY 03/23/20 01/09/23 sennosides 8.6 mg tablet (senna) 17.2 mg PO BEDTIME 03/23/20 01/09/23 warfarin 2 mg tablet 2 mg PO SUMOWEFR@18 03/23/20 03/23/20 warfarin 3 mg tablet 3 mg PO TUTHSA@18 03/23/20 03/23/20 cholecalciferol (vitamin D3) 1,250 1,250 mcg PO QMONTH 01/09/23 01/09/23 mcg (50,000 unit) tablet dicyclomine 10 mg capsule 10 mg PO Q6H PRN Stomach Upset 01/09/23 01/09/23 ferrous sulfate 325 mg (65 mg 325 mg PO DAILY 01/09/23 01/09/23 iron) tablet furosemide 20 mg tablet 20 mg PO DAILY 01/09/23 01/09/23 gabapentin 100 mg capsule 100 mg PO BID 01/09/23 01/09/23 gabapentin 600 mg tablet 600 mg PO DAILY 01/09/23 01/09/23 levothyroxine 112 mcg tablet 112 mcg PO DAILY 01/09/23 01/09/23 melatonin 10 mg tablet 10 mg PO BEDTIME PRN Sleep 01/09/23 01/09/23 midodrine 10 mg tablet 10 mg PO TID 01/09/23 01/09/23 vit no.95-ferrous 1 tab PO DAILY 01/09/23 01/09/23 fumarate 28 mg-folic acid 800 mcg tablet () trazodone 50 mg tablet 50 mg PO BEDTIME PRN Sleep 01/09/23 01/09/23 Previous Rx's ?Medication ?Instructions ?Recorded acetaminophen 325 mg tablet 650 mg (2 x 325 mg) PO TID #60 tabs 03/29/20 levofloxacin 750 mg tablet 750 mg PO DAILY #8 tabs 01/10/23 levofloxacin 750 mg tablet 750 mg PO Q24H #8 tabs 01/10/23 tramadol 50 mg tablet 50 mg PO Q8H PRN Pain, 01/10/23 Moderate(Pain Scale 4-6) #14 tabs levofloxacin 750 mg tablet 750 mg PO Q24H #6 tabs 02/23/23 cephalexin 500 mg capsule 500 mg PO QID 7 days #28 caps 02/27/23 Allergies Allergy/AdvReac Type Severity Reaction Status Date / Time dicloxacillin [From DYNAPEN] Allergy Unknown UNKNOWN Verified 11/26/23 11:21 ofloxacin [From FLOXIN] AdvReac Intermediate UPSET Verified 11/26/23 11:21 STOMACH penicillin V AdvReac Unknown Abdominal Verified 11/26/23 11:21 Pain Review of Systems 2 Review of Systems: All other systems are reviewed and are negative Constitutional: Reports as per HPI and Reports no additional constitutional complaints Eyes: Reports as per HPI and Reports no additional eye complaints Reports system reviewed and no additional complaints, except as documented Cardiovascular: Reports as per HPI and Reports no additional cardiovascular complaints Respiratory: Reports as per HPI and Reports no additional respiratory complaints Gastrointestinal: Reports as per HPI and Reports no additional gastrointestinal complaints Genitourinary: Reports no additional female genitourinary complaints Musculoskeletal: Reports no additional musculoskeletal complaints Skin/Breast: Reports system reviewed and no additional complaints, except as docu Psychiatric: Reports no additional psychiatric complaints Endocrine: Reports no additional endocrine complaints Hematologic/Lymphatic: Reports no additional hematologic/lymphatic complaints Allergic/Immunologic: Reports no additional allergic/immunologic complaints Reports system reviewed and no additional complaints, except as documented and Reports Abnormal speech present [facility] Past Medical History Medical History Pneumonia Urine retention Irreducible left inguinal hernia Autonomic dysfunction Hypothyroidism Hernia Atrial fibrillation Spasms of the hands or feet Spinal cord injury Surgical History S/P tendon repair H/O hemorrhoidectomy S/P IVC filter H/O hernia repair H/O thyroidectomy Family History Family History Sister Diabetes mellitus Social History Social History Household Members: Other Housing: Other Housing Other:: halfway in [place] Do you presently have visiting nurse or other home services: Yes (wound care) Alcohol intake: former Comment: low extremity paralysis Patient Tobacco Use Status: Never used Tobacco Smoked in Last 30 Days: No Use of substances other than those prescribed or required for medical reasons: No Advance Directives: Yes Advance Directives on File: Yes Advance Directives Date on File: 01/09/23 Do you have a plan to hurt others: No Plan service: No Physical Exam ED Vital Signs: Vital Signs - 24 hr 11/26/23 11:28 11/26/23 11:32 11/26/23 12:00 Temperature 98.4 F 99.7 F 99.7 F Pulse Rate 63 81 60 Respiratory Rate 16 16 11 L Blood Pressure 86/46 L 89/64 L 96/64 Pulse Oximetry 87 L 91 L 90 L Oxygen Delivery Method Room Air Nasal Cannula Nasal Cannula Oxygen Flow Rate 2 2 11/26/23 12:29 11/26/23 12:29 11/26/23 12:56 Temperature Pulse Rate 76 60 Respiratory Rate 16 16 Blood Pressure 105/67 93/61 Pulse Oximetry 88 L 93 88 L Oxygen Delivery Method Nasal Cannula Nasal Cannula Nasal Cannula Oxygen Flow Rate 2 3 5 11/26/23 13:07 11/26/23 14:00 11/26/23 14:48 Temperature 97.5 F Pulse Rate Respiratory Rate 12 Blood Pressure 113/69 121/79 Pulse Oximetry 93 88 L Oxygen Delivery Method Nasal Cannula Nasal Cannula Oxygen Flow Rate 2 3 BMI result Body Mass Index 34.1 Vital signs have been reviewed and appear to be correct. Blood pressure elevated. Heart rate normal. Respiratory rate normal. Temperature normal. Oxygen saturation normal. Appearance: Alert. Oriented X3. No acute distress. Head: Normal external exam. Normocephalic. Atraumatic. No Vega signs noted. No raccoon eyes noted Eyes: PERRLA. EOMI. Conjunctiva and sclera normal. Eyelids normal. ENT: TM's Normal. Pharynx normal. Uvula midline. Moist mucous membranes. No trismus noted. No drooling noted. No muffled voice noted. Neck: Normal inspection. Neck supple. FROM. No adenopathy. Thyroid Normal. No meningeal signs. No neck mass noted. CVS: Normal heart rate and rhythm. Heart sound normal. No murmurs noted. Pulses normal throughout. Respiratory: No respiratory distress. Painless inspiration. Breath sounds normal. Bilateral rales to both lower lung jade. Chest nontender. No accessory muscle usage noted or decreased air movement noted. Abdomen: Soft and nontender. Bowel sounds normal in all 4 quadrants. No distention noted. No organomegaly noted. No visible injury noted. Back: No CVA tenderness. Full range of motion noted. Skin: Skin warm and dry. Normal skin color. Normal skin turgor. No rashes/lesions/lacerations noted. Extremities: No lower extremity edema. Extremities exhibit normal range of motion. Extremities nontender. Neuro: Oriented X 3. Cranial nerve exam: II-XII are grossly intact No motor deficit. No sensory deficit. Reflexes normal. Course Reevaluation(s) Reevaluation #1: 68-year-old male from halfway, sedentary lifestyle due to lower extremities paralysis came in with hypoxia patient has no chest pain or shortness of breath with nondiagnostic value of D-dimer. Exam is consistent with rales to bilateral wounds. 1. Continue with supplemental oxygen via OxyMask. 2. Consider CTA of the chest rule out pulmonary embolism. 3. A diuresis and nitro for mild CHF. 4. Signed out to Dr. Skaggs Time: 14:53 Medications Administered Discontinued Medications Generic Name Dose Route Start Last Admin Trade Name Fausto PRN Reason Stop Dose Admin Furosemide 40 mg 11/26/23 14:39 11/26/23 14:48 Furosemide 40 Mg/4 Ml Vial IVPUSH 11/26/23 14:40 40 mg ONCE ONE Administration Protocol Sodium Chloride 1,000 mls @ 999 mls/hr 11/26/23 12:22 11/26/23 12:30 Ns IV 11/26/23 13:22 999 mls/hr .Q1H1M ONE Administration Nitroglycerin 0.5 inch 11/26/23 14:43 11/26/23 14:48 Nitroglycerin 2 % Oint 1 Gm Packet TRANSDERMA 11/26/23 14:44 0.5 inch ONCE ONE Administration Medical Decision Making Differential Diagnosis Differential Diagnoses: The differential diagnosis associated with the presentation includes (Pneumonia, pneumothorax, pleural effusion, CHF, pulmonary embolism, electrolyte derangement, severe anemia.) Admission/Observation Consideration of admission/observation: Escalation of care including admission/observation considered Lab Data MDM Lab Attestation statement: I reviewed the patient's lab results. 11/26/23 11:49 11/26/23 11:49 Labs: Lab Results 11/26/23 11/26/23 11/26/23 Range/Units 11:49 11:56 12:12 WBC 8.7 (4.8-10.8) X10*3/uL RBC 3.97 L (4.60-5.80) X10*6/uL Hgb 11.9 L (14.0-18.0) g/dl Hct 36.1 L (42.0-52.0) % MCV 90.9 (80.0-98.0) fL MCH 30.0 (27.0-33.0) pg MCHC 33.0 (31.0-36.0) g/dl RDW 16.2 H (11.0-16.0) % Plt Count 168 D (160-400) X10*3/uL MPV 9.1 L (9.4-12.4) fL Immature Gran % (Auto) 0.3 (0.0-0.4) % Neut % (Auto) 72.4 (45-73) % Lymph % (Auto) 17.9 L (20-40) % Hendricks % (Auto) 6.7 (2-11) % Eos % (Auto) 2.5 (0-4) % Baso % (Auto) 0.2 (0-2) % Lymph # (Auto) 1.6 (1.2-4.9) X10*3/uL Hendricks # (Auto) 0.6 (0.1-1.2) X10*3/uL Eos # (Auto) 0.2 (0.0-0.4) X10*3/uL Baso # (Auto) 0.0 (0.0-0.2) X10*3/uL Abs Immat Gran (auto) 0.03 (0.00-0.03) X10*3/uL Absolute Neuts (auto) 6.3 (2.0-8.3) x10*3/uL Absolute Nucleated RBC 0.000 (0.0-0.012) X10*3/uL Nucleated RBC % (auto) 0.0 (0.0-0.2) /100WBC PT 26.5 H D (11.1-13.3) SEC INR 2.2 H (0.9-1.1) APTT 31.6 (26.0-36.8) SEC D-Dimer High Sensitivty 207 NG/ML VBG pH 7.46 H (7.32-7.43) VBG pCO2 43 mmHg VBG pO2 61 mmHg VBG HCO3 31 H (22-26) mmol/L VBG O2 Saturation 89.0 % VBG Base Excess 6.8 mmol/L Sodium 141 (135-145) mmol/L Potassium 4.1 (3.3-5.1) mmol/L Chloride 104 (96-108) mmol/L Carbon Dioxide 27 (22-29) mmol/L Anion Gap 14 (12-20) BUN 24 H (9-16) mg/dL Creatinine 0.72 (0.5-1.4) mg/dL Estim Creat Clear Calc 144.9 Estimated GFR > 60 Random Glucose 95 (60-115) mg/dL Lactic Acid 0.9 (0.5-2.0) mmol/L Calcium 9.4 (8.4-10.2) mg/dL Total Bilirubin 0.9 (0.0-1.0) mg/dL AST 19 (5-37) U/L ALT 16 (0-40) U/L Alkaline Phosphatase 83 (39-117) U/L Troponin I High Sens 17.9 (<3.5-35.0) ng/L B-Natriuretic Peptide 304 H (<100) pg/mL Total Protein 7.6 (6.5-8.0) g/dL Albumin 4.2 (3.5-5.0) g/dL Urine Color Dark Yellow Urine Appearance Turbid Urine pH 8.0 (5.0-9.0) Ur Specific [place] 1.025 (1.005-1.025) Urine Protein 100 (2+) H (Neg-Trace) mg/dL Urine Glucose (UA) Negative (Negative) mg/dL Urine Ketones Negative (Negative) mg/dL Urine Blood Moderate (2+) H (Negative) Urine Nitrite Positive H (Negative) Ur Leukocyte Esterase Large (3+) H (Negative) Urine RBC >20 H (0-2) /HPF Urine WBC >50 H (0-5) /HPF Ur Squamous Epith Cells 0-2 (0-2) /HPF Other Crystals Present Urine Bacteria 4+ (None Seen) Hyaline Casts 3-5 (0-2) /LPF Influenza Type A (PCR) NEGATIVE (Negative) Influenza Type B (PCR) NEGATIVE (Negative) RSV RNA Qual (PCR) NEGATIVE (Negative) SARS-CoV-2 RNA (RT-PCR) NEGATIVE (Negative) S. pyogenes GrpA ZACKERY (Negative) 11/26/23 Range/Units 12:16 WBC (4.8-10.8) X10*3/uL RBC (4.60-5.80) X10*6/uL Hgb (14.0-18.0) g/dl Hct (42.0-52.0) % MCV (80.0-98.0) fL MCH (27.0-33.0) pg MCHC (31.0-36.0) g/dl RDW (11.0-16.0) % Plt Count (160-400) X10*3/uL MPV (9.4-12.4) fL Immature Gran % (Auto) (0.0-0.4) % Neut % (Auto) (45-73) % Lymph % (Auto) (20-40) % Hendricks % (Auto) (2-11) % Eos % (Auto) (0-4) % Baso % (Auto) (0-2) % Lymph # (Auto) (1.2-4.9) X10*3/uL Hendricks # (Auto) (0.1-1.2) X10*3/uL Eos # (Auto) (0.0-0.4) X10*3/uL Baso # (Auto) (0.0-0.2) X10*3/uL Abs Immat Gran (auto) (0.00-0.03) X10*3/uL Absolute Neuts (auto) (2.0-8.3) x10*3/uL Absolute Nucleated RBC (0.0-0.012) X10*3/uL Nucleated RBC % (auto) (0.0-0.2) /100WBC PT (11.1-13.3) SEC INR (0.9-1.1) APTT (26.0-36.8) SEC D-Dimer High Sensitivty NG/ML VBG pH (7.32-7.43) VBG pCO2 mmHg VBG pO2 mmHg VBG HCO3 (22-26) mmol/L VBG O2 Saturation % VBG Base Excess mmol/L Sodium (135-145) mmol/L Potassium (3.3-5.1) mmol/L Chloride (96-108) mmol/L Carbon Dioxide (22-29) mmol/L Anion Gap (12-20) BUN (9-16) mg/dL Creatinine (0.5-1.4) mg/dL Estim Creat Clear Calc Estimated GFR Random Glucose (60-115) mg/dL Lactic Acid (0.5-2.0) mmol/L Calcium (8.4-10.2) mg/dL Total Bilirubin (0.0-1.0) mg/dL AST (5-37) U/L ALT (0-40) U/L Alkaline Phosphatase (39-117) U/L Troponin I High Sens (<3.5-35.0) ng/L B-Natriuretic Peptide (<100) pg/mL Total Protein (6.5-8.0) g/dL Albumin (3.5-5.0) g/dL Urine Color Urine Appearance Urine pH (5.0-9.0) Ur Specific [place] (1.005-1.025) Urine Protein (Neg-Trace) mg/dL Urine Glucose (UA) (Negative) mg/dL Urine Ketones (Negative) mg/dL Urine Blood (Negative) Urine Nitrite (Negative) Ur Leukocyte Esterase (Negative) Urine RBC (0-2) /HPF Urine WBC (0-5) /HPF Ur Squamous Epith Cells (0-2) /HPF Other Crystals Urine Bacteria (None Seen) Hyaline Casts (0-2) /LPF Influenza Type A (PCR) (Negative) Influenza Type B (PCR) (Negative) RSV RNA Qual (PCR) (Negative) SARS-CoV-2 RNA (RT-PCR) (Negative) S. pyogenes GrpA ZACKERY Negative (Negative) Independent Interpretation I performed an independent interpretation of an: Plain X-Ray (Chest:Stable enlargement of the cardiac silhouette. No evidence for acute disease in the chest. ) Radiology Impression Discussion of test interpretation with radiology: I have reviewed the radiologist's reading. Discharge Plan Discharge Clinical Impression: Hypoxia Patient Disposition: Still a Patient Prescriptions: No Action multivitamin Tablet 1 tab PO DAILY sennosides [senna] 8.6 mg Tablet 17.2 mg PO BEDTIME warfarin 3 mg Tablet 3 mg PO TUTHSA@18 calcium carbonate [Calcium 500] 500 mg calcium (1,250 mg) Tablet 500 mg PO BID ascorbic acid (vitamin C) 500 mg Tablet 500 mg PO BID baclofen 10 mg tablet 20 mg PO TID baclofen 10 mg tablet 40 mg PO BEDTIME warfarin 2 mg Tablet 2 mg PO SUMOWEFR@18 docusate sodium [Colace] 100 mg Capsule 200 mg PO DAILY calcitriol 0.25 mcg capsule 0.25 mcg PO DAILY acetaminophen 325 mg Tablet 650 mg PO TID Qty: 60 0RF Rx Instructions: For 10 days then as needed gabapentin 600 mg tablet 600 mg PO DAILY trazodone 50 mg Tablet 50 mg PO BEDTIME PRN (Reason: Sleep) ferrous sulfate 325 mg (65 mg iron) Tablet 325 mg PO DAILY furosemide 20 mg tablet 20 mg PO DAILY gabapentin 100 mg capsule 100 mg PO BID dicyclomine 10 mg capsule 10 mg PO Q6H PRN (Reason: Stomach Upset) levothyroxine 112 mcg tablet 112 mcg PO DAILY midodrine 10 mg Tablet 10 mg PO TID Rx Instructions: do not give last dose of day after 6PM or within 4 hrs of bedtime PNV cmb#95-ferrous fumarate-FA [] 28 mg iron- 800 mcg Tablet 1 tab PO DAILY melatonin 10 mg Tablet 10 mg PO BEDTIME PRN (Reason: Sleep) cholecalciferol (vitamin D3) 1,250 mcg (50,000 unit) Tablet 1,250 mcg PO QMONTH levofloxacin 750 mg Tablet 750 mg PO Q24H Qty: 8 0RF tramadol 50 mg Tablet 50 mg PO Q8H PRN (Reason: Pain, Moderate(Pain Scale 4-6)) Qty: 14 0RF levofloxacin 750 mg tablet 750 mg PO DAILY Qty: 8 0RF levofloxacin 750 mg tablet 750 mg PO Q24H Qty: 6 0RF Rx Instructions: start on 02/24 cephalexin 500 mg capsule 500 mg PO QID 7 Days Qty: 28 0RF Print Language: Com[place]an
[2023-11-26 12:14] LABS: Alanine Aminotransferase 16 U/L (0-40); Albumin Level 4.2 g/dL (3.5-5.0); Alkaline Phosphatase 83 U/L (39-117); Anion Gap 14 (12-20); Aspartate Amino Transferase 19 U/L (5-37); Bilirubin Total 0.9 mg/dL (0.0-1.0); Blood Urea Nitrogen 24 mg/dL (9-16); Calcium 9.4 mg/dL (8.4-10.2); Carbon Dioxide 27 mmol/L (22-29); Chloride 104 mmol/L (96-108); Creatinine Clr Calc Pharmacy 144.9; Estimated Glomerular Filt Rate > 60; Glucose Random 95 mg/dL (60-115); Potassium 4.1 mmol/L (3.3-5.1); Sodium 141 mmol/L (135-145); Total Protein 7.6 g/dL (6.5-8.0)
[2023-11-26 12:20] LABS: B Type Natriuretic Peptide 304 pg/mL (<100)
[2023-11-26 12:21] LABS: Troponin-I High Sensitivity 17.9 ng/L (<3.5-35.0)
--- NOTE | 2023-11-26 12:21 | PC.NURSE ---
fuad from [facility] d/t staff noticing productive cough/sob. upon EMS arrival a&ox4. 88% on RA. pt placed on 2L via NC w/ good effect. 96% on 2L. pt denies hx of asthma/copd. productive cough noted but no output. RT bedside/suctioned pt w/ minimal effect. attempted to place pt on RA - resting at 87% on RA while positioned upright in high fowlers position. pt then placed back on 2L via NC - resting at 92%-93%. nsr on the property assessment monitor - paced. upon repositioning pt - pt seemed warm to the touch. 99.7 rectal temp obtained. pt hypotensive - states he has a hx and takes midodrine. denies feeling dizzy/lightheaded. 20gIV placed in the left hand by EMS. new 20gIV also placed in the right forearm - labs obtained/sent to lab. ekf performed by tech. chronic rojo/colostomy bag in place upon EMS arrival. employee from [facility] for support. plan of care ongoing. call becerra placed within reach.
[2023-11-26] MEDS: 0.9 % Sodium Chloride 1,000 ML 999 ML IV ×2 (12:30→17:31)
[2023-11-26 12:32] LABS: Appearance Urine Turbid; Color Urine Dark Yellow; Glucose Urine UA Negative (Negative); Leukocyte Esterase Urine Large (3+) (Negative); Nitrite Urine Positive (Negative); Specific Gravity - Urine 1.025 (1.005-1.025); UMIC TRIGGER UACC YES; Urine Blood Moderate (2+) (Negative); Urine Ketones Negative (Negative); Urine Protein 100 (2+) mg/dL (Neg-Trace)
[2023-11-26 12:41] LABS: IDNOW Serial# 08D9AD1C; Strep A Nucleic Acid Negative (Negative)
[2023-11-26 12:43] LABS: Bacteria Urine 4+ (None Seen); Other Crystals Urine Present; RBC Urine >20 /HPF (0-2); Squamous Epithelial Cell Urine 0-2 /HPF (0-2); UACC Culture Trigger YES; WBC Urine >50 /HPF (0-5)
--- NOTE | 2023-11-26 13:05 | PC.NURSE ---
pt unable to cough up notable secretions. pt suctioned by RT. pt tolerated well. secretions noted. pt now resting on 2L via NC @ 93%. no sob/wob noted. respirations even/unlabored.
[2023-11-26 13:09] LABS: Influenza A PCR NEGATIVE (Negative); Influenza B PCR NEGATIVE (Negative); Resp Syncy Virus RNA Qual PCR NEGATIVE (Negative); SARS COV2 PCR INHOUSE NEGATIVE (Negative)
--- NOTE | 2023-11-26 13:12 | PC.NURSE ---
xray being completed at this time.
[2023-11-26 13:23] LABS: D Dimer High Sensitivity 207 NG/ML
[2023-11-26] MEDS: Nitroglycerin 2 % Oint 1 GM Packet 0.5 INCH TRANSDERMA (14:48)
[2023-11-26] MEDS: Furosemide 40 MG/4 ML VIAL IVPUSH (14:48)
--- NOTE | 2023-11-26 14:58 | PC.NURSE ---
pt noted to remain hypoxic despite interventions w/ NC. pt transitioned to oxymask - resting at 87% on 5L via oxymask. pt now on 10L via oxymask - resting at 91%. provider notified/aware. otherwise vss. nsr on the shelter monitor - paced. no sob/wob noted. respirations remain even/unlabored. medication administered per provider order. plan of care ongoing. call becerra placed within reach.
--- NOTE | 2023-11-26 15:30 | PC.NURSE ---
pt to CT at this time.
[2023-11-26] MEDS: iohexoL 350 MG/ML 100 ML INFUS..BTL 85 ML IV (15:58)
--- NOTE | 2023-11-26 16:23 | PC.NURSE ---
pt remains hypoxic - 88% on 15L via oxymask. ED provider notified/aware.
[2023-11-26 16:39] LABS: ABG Base Excess 5.9 mmol/L; ABG HCO3 31 mmol/L (22-26); ABG pCO2 46 mmHg (32-45); ABG pH 7.43 (7.35-7.45); ABG pO2 71 mmHg (83-108)
[2023-11-26] MEDS: levoFLOXacin/D5W 750 MG/150 ML PIGGYBACK 100 MG IV (17:12)
--- NOTE | 2023-11-26 17:24 | PC.RT ---
RT performed manual chest CPT to affect areas. NT suctioning completed and RT got small amounts of white secretions. RT requested mucomyst and albuterol nebs to help with airway clearance.
--- NOTE | 2023-11-26 17:31 | PC.NURSE ---
secretions still noted to be stuck at this time. pt unable to expel secretions on his own. provider aware. CPT/nasogastric suctioning performed by RT w/ minimal success. white/pink frothy secretions noted. admitting provider now bedside. pt aware of plan of care moving forward. pt now receiving breathing treatments via RT. plan of care ongoing. call becerra placed within reach.
[2023-11-26] MEDS: Albuterol Sulfate 2.5 MG, Albuterol/Iprat 2.5/0.5MG 3 ML 3 ML INHALE (17:35)
--- NOTE | 2023-11-26 17:46 | PM.IMHP ---
History of Present Illness Date of Service: 11/26/23 Chief Complaint: sob 68M PMH tetraplegia due to lesion at C5-C7, complicated by neurogenic bladder status post suprapubic catheter, sacral decubitus ulcer, DVT with IVC filter, paroxysmal atrial fibrillation, hypothyroid presented with cough and shortness of breath. Patient lives at a intermediate, reports about 2 days of shortness of breath, feeling like he needs to cough but unable to bring anything up, froggy voice . Denies fever or chills. In ED, patient with significant hypoxia which did improve with some suctioning. CT of the chest showed Abnormal endobronchial soft tissue opacification of the right mainstem bronchus and bilateral lower lobe bronchi, right greater than left. Bilateral lower lobe atelectasis/pneumonia, right greater than left. Review of Systems Review of Systems: Yes all other systems are reviewed and are negative FORMERLY [facility], [facility] Medical History Pneumonia Urine retention Irreducible left inguinal hernia Autonomic dysfunction Hypothyroidism Hernia Atrial fibrillation Spasms of the hands or feet Spinal cord injury Family History Sister Diabetes mellitus Surgical History S/P tendon repair H/O hemorrhoidectomy S/P IVC filter H/O hernia repair H/O thyroidectomy Social History Household Members: Other Housing: Other Housing Other:: intermediate in [place] Do you presently have visiting nurse or other home services: Yes (wound care) Alcohol intake: former Comment: low extremity paralysis Patient Tobacco Use Status: Never used Tobacco Smoked in Last 30 Days: No Use of substances other than those prescribed or required for medical reasons: No Advance Directives: Yes Advance Directives on File: Yes Advance Directives Date on File: 01/09/23 Do you have a plan to hurt others: No Plan service: No Meds Allergies Allergy/AdvReac Type Severity Reaction Status Date / Time dicloxacillin [From DYNAPEN] Allergy Unknown UNKNOWN Verified 11/26/23 11:21 ofloxacin [From FLOXIN] AdvReac Intermediate UPSET Verified 11/26/23 11:21 STOMACH penicillin V AdvReac Unknown Abdominal Verified 11/26/23 11:21 Pain Active Medications: Current Medications Levofloxacin (Levaquin) 750 mg in 150 mls @ 100 mls/hr IV ONCE ONE Stop: 11/26/23 18:29 Last Admin: 11/26/23 17:12 Dose: 100 mls/hr Sodium Chloride (Ns) 1,000 mls @ 999 mls/hr IV .Q1H1M ONE Stop: 11/26/23 18:14 Last Admin: 11/26/23 17:31 Dose: 999 mls/hr Home Medications ?Medication ?Instructions ?Recorded ?Confirmed ?Last Taken ?Type ascorbic acid (vitamin C) 500 mg 500 mg PO BID 03/23/20 01/09/23 03/23/20 History tablet baclofen 10 mg tablet 20 mg PO TID 03/23/20 01/09/23 03/23/20 History baclofen 10 mg tablet 40 mg PO BEDTIME 03/23/20 01/09/23 03/23/20 History calcitriol 0.25 mcg capsule 0.25 mcg PO DAILY 03/23/20 01/09/23 03/23/20 History calcium carbonate (Calcium 500) 500 mg PO BID 03/23/20 01/09/23 03/23/20 History docusate sodium 100 mg capsule 200 mg PO DAILY 03/23/20 01/09/23 03/23/20 History (Colace) multivitamin 1 tab PO DAILY 03/23/20 01/09/23 03/23/20 History sennosides 8.6 mg tablet (senna) 17.2 mg PO BEDTIME 03/23/20 01/09/23 03/23/20 History warfarin 2 mg tablet 2 mg PO SUMOWEFR@18 03/23/20 03/23/20 03/23/20 History warfarin 3 mg tablet 3 mg PO TUTHSA@18 03/23/20 03/23/20 03/23/20 History cholecalciferol (vitamin D3) 1,250 1,250 mcg PO QMONTH 01/09/23 01/09/23 Unknown History mcg (50,000 unit) tablet dicyclomine 10 mg capsule 10 mg PO Q6H PRN Stomach Upset 01/09/23 01/09/23 Unknown History ferrous sulfate 325 mg (65 mg 325 mg PO DAILY 01/09/23 01/09/23 Unknown History iron) tablet furosemide 20 mg tablet 20 mg PO DAILY 01/09/23 01/09/23 Unknown History gabapentin 100 mg capsule 100 mg PO BID 01/09/23 01/09/23 Unknown History gabapentin 600 mg tablet 600 mg PO DAILY 01/09/23 01/09/23 Unknown History levothyroxine 112 mcg tablet 112 mcg PO DAILY 01/09/23 01/09/23 Unknown History melatonin 10 mg tablet 10 mg PO BEDTIME PRN Sleep 01/09/23 01/09/23 Unknown History midodrine 10 mg tablet 10 mg PO TID 01/09/23 01/09/23 Unknown History vit no.95-ferrous 1 tab PO DAILY 01/09/23 01/09/23 Unknown History fumarate 28 mg-folic acid 800 mcg tablet () trazodone 50 mg tablet 50 mg PO BEDTIME PRN Sleep 01/09/23 01/09/23 Unknown History Physical Exam Vital Signs and Narrative: Vital Signs: Last Vital Signs Temp 97.7 F 11/26/23 17:22 Pulse 77 11/26/23 17:22 Resp 12 11/26/23 17:22 BP 128/79 11/26/23 17:22 Pulse Ox 96 11/26/23 17:22 O2 Del Method Oxymask 11/26/23 17:22 O2 Flow Rate 4 11/26/23 17:22 BMI result Body Mass Index 34.1 General: AO X 3, no acute distress Resp: rhonchi bilateral, no accessory muscles used CVS: S1,S2,RRR GI: suprapubic and colostomy Neuro: tetraplegia Psych: appropriate affect, appropriate insight Results Labs 11/26/23 11:49 11/26/23 11:49 Labs: Laboratory Results - last 24 hr 11/26/23 11/26/23 11/26/23 11:49 11:56 12:12 MCV 90.9 MCH 30.0 MCHC 33.0 RDW 16.2 H Plt Count 168 D MPV 9.1 L Immature Gran % (Auto) 0.3 Neut % (Auto) 72.4 Lymph % (Auto) 17.9 L [place] % (Auto) 6.7 Eos % (Auto) 2.5 Baso % (Auto) 0.2 Lymph # (Auto) 1.6 [place] # (Auto) 0.6 Eos # (Auto) 0.2 Baso # (Auto) 0.0 Abs Immat Gran (auto) 0.03 Absolute Neuts (auto) 6.3 Absolute Nucleated RBC 0.000 Nucleated RBC % (auto) 0.0 PT 26.5 H D INR 2.2 H APTT 31.6 D-Dimer High Sensitivty 207 O2 Saturation ABG pH at Pt Temp ABG pCO2 at Pt Temp ABG pO2 at Pt Temp ABG HCO3 ABG Base Excess (Actual) VBG pH 7.46 H VBG pCO2 43 VBG pO2 61 VBG HCO3 31 H VBG O2 Saturation 89.0 VBG Base Excess 6.8 Anion Gap 14 Estim Creat Clear Calc 144.9 Estimated GFR > 60 Random Glucose 95 Lactic Acid 0.9 Calcium 9.4 Total Bilirubin 0.9 AST 19 ALT 16 Alkaline Phosphatase 83 Troponin I High Sens 17.9 B-Natriuretic Peptide 304 H Total Protein 7.6 Albumin 4.2 Urine Color Dark Yellow Urine Appearance Turbid Urine pH 8.0 Ur Specific [place] 1.025 Urine Protein 100 (2+) H Urine Glucose (UA) Negative Urine Ketones Negative Urine Blood Moderate (2+) H Urine Nitrite Positive H Ur Leukocyte Esterase Large (3+) H Urine RBC >20 H Urine WBC >50 H Ur Squamous Epith Cells 0-2 Other Crystals Present Urine Bacteria 4+ Hyaline Casts 3-5 Influenza Type A (PCR) NEGATIVE Influenza Type B (PCR) NEGATIVE RSV RNA Qual (PCR) NEGATIVE SARS-CoV-2 RNA (RT-PCR) NEGATIVE S. pyogenes GrpA ZACKERY 11/26/23 11/26/23 12:16 16:31 MCV MCH MCHC RDW Plt Count MPV Immature Gran % (Auto) Neut % (Auto) Lymph % (Auto) [place] % (Auto) Eos % (Auto) Baso % (Auto) Lymph # (Auto) [place] # (Auto) Eos # (Auto) Baso # (Auto) Abs Immat Gran (auto) Absolute Neuts (auto) Absolute Nucleated RBC Nucleated RBC % (auto) PT INR APTT D-Dimer High Sensitivty O2 Saturation 92.0 ABG pH at Pt Temp 7.43 ABG pCO2 at Pt Temp 46 H ABG pO2 at Pt Temp 71 L ABG HCO3 31 H ABG Base Excess (Actual) 5.9 VBG pH VBG pCO2 VBG pO2 VBG HCO3 VBG O2 Saturation VBG Base Excess Anion Gap Estim Creat Clear Calc Estimated GFR Random Glucose Lactic Acid Calcium Total Bilirubin AST ALT Alkaline Phosphatase Troponin I High Sens B-Natriuretic Peptide Total Protein Albumin Urine Color Urine Appearance Urine pH Ur Specific [place] Urine Protein Urine Glucose (UA) Urine Ketones Urine Blood Urine Nitrite Ur Leukocyte Esterase Urine RBC Urine WBC Ur Squamous Epith Cells Other Crystals Urine Bacteria Hyaline Casts Influenza Type A (PCR) Influenza Type B (PCR) RSV RNA Qual (PCR) SARS-CoV-2 RNA (RT-PCR) S. pyogenes GrpA ZACKERY Negative Imaging Radiologist's Impressions: Impressions Chest X-Ray 11/26/23 13:19 IMPRESSION: Stable enlargement of the cardiac silhouette. No evidence for acute disease in the chest. Chest CTA 11/26/23 15:59 IMPRESSION: No evidence of pulmonary embolism. Abnormal endobronchial soft tissue opacification of the right mainstem bronchus and bilateral lower lobe bronchi, right greater than left. Bilateral lower lobe atelectasis/pneumonia, right greater than left. Enlarged heart. In particular, the left atrium is enlarged. VTE: Assessment and Plan (1) Hypoxia: Status: Acute Plan 68M PMH tetraplegia due to lesion at C5-C7, complicated by neurogenic bladder status post suprapubic catheter, sacral decubitus ulcer, DVT with IVC filter, paroxysmal atrial fibrillation, hypothyroid presented with cough and shortness of breath Acute hypoxic respiratory failure due to pneumonia with concern for aspiration IV Zosyn, jennifer ocampo, [employer], follow-up cultures, wean O2 as tolerated DuoNebs, pulmonary toilet History of DVT Continue Coumadin, monitor INR Paroxysmal atrial fibrillation Continue Coumadin Tetraplegia with neurogenic bladder, suprapubic catheter with pyuria and bacteriuria Unclear if clinically significant being covered with IV Zosyn Hypothyroid Continue levothyroxine Full code Patient with significant hypoxia requiring high levels of O2 and IV antibiotics, therefore expected require at least 2 midnights inpatient Quality Stroke Does the patient have a stroke diagnosis?: No VTE Prior VTE?: Yes VTE Risk Level:: Medical - moderate - high VTE Device Contraindication: Treatment Not Indicated VTE Drug Contraindication: N/A - Med Ordered
[2023-11-26] MEDS: Acetylcysteine 10 % 400 MG/4 ML VIAL 200 MG INHALE (17:48)
[2023-11-26 18:12] LABS: INTERNATIONAL NORM RATIO 2.3 (0.9-1.1); Prothrombin Time 28.3 SEC (11.1-13.3)
--- NOTE | 2023-11-26 18:44 | PHA.MEDREC ---
Addendum entered by Brianna [facility] 11/26/23 19:16: SPOKE WITH [facility] REGARDING TIMING OF BACLOFEN AND GABAPENTIN. PATIENT TAKES GABAPENTIN 100 MG AT 0800,1400 AND 600 MG BEDTIME AND BACLOFEN 20MG AT 0900,1300,1700 AND 40 MG AT BEDTIME Original Note: Pharmacy Consult ? Medication Reconciliation Pharmacy has completed the medication reconciliation. [facility] staff at bedside had pictures of med list on her phone, not complete med list, called [facility] staff Anastasiia ([phone]) to verify rest of medications. She confirmed warfarin is 3mg on Monday and , and 4 mg rest of the days, he takes them around 8pm and last took 4mg yesterday. He did get his monthly vitamin D3 on the . Information from [facility] staff matched claim history.
[2023-11-26] MEDS: Piperacillin Sodium/Tazobactam 4.5 GM in 0.9 % Sodium Chloride 100 ML IV ×2 (18:52→23:41)
--- NOTE | 2023-11-26 18:57 | PC.NURSE ---
new 18Fr suprapubic catheter placed by dr. fraser - draining pale yellow/cloudy/sediment urine. new UA obtained/sent to lab.
[2023-11-26 19:07] LABS: Appearance Urine Turbid; Color Urine Yellow; Glucose Urine UA Negative (Negative); Leukocyte Esterase Urine Large (3+) (Negative); Nitrite Urine Negative (Negative); PH 5.5 (5.0-9.0); Specific Gravity - Urine 1.025 (1.005-1.025); UMIC TRIGGER UACC YES; Urine Blood Large (3+) (Negative); Urine Ketones Trace mg/dL (Negative); Urine Protein 30 (1+) mg/dL (Neg-Trace)
[2023-11-26 19:15] LABS: Bacteria Urine 2+ (None Seen); RBC Urine >20 /HPF (0-2); UACC Culture Trigger YES; WBC Urine >50 /HPF (0-5)
[2023-11-26] MEDS: Dicyclomine HCl 10 MG CAPSULE PO (20:24)
[2023-11-26] MEDS: Gabapentin 600 MG TABLET PO (20:24)
[2023-11-26] MEDS: traZODone HCL 25 MG HALFTAB 75 MG PO (20:24)
[2023-11-26] MEDS: Warfarin Sodium 3 MG TABLET PO (20:24)
[2023-11-26] MEDS: Baclofen 20 MG TABLET 40 MG PO (20:25)
[2023-11-26] MEDS: guaiFENesin 200 MG/10 ML 10 ML LIQUID PO (23:43)
[2023-11-26] MEDS: 0.9 % Sodium Chloride Flush 3 ML SYRINGE IVFLUSH (23:49)
[2023-11-27] VITALS (11 sets, daily range): BP systolic 95–119; BP diastolic 58–70; PULSE 60–79; RESP 16–19; TEMP 36–37; O2SAT 93–97; BMI 34.1
[2023-11-27] MEDS: Albuterol/Iprat 2.5/0.5MG 3 ML AMPUL.NEB INHALE ×4 (00:18→20:29)
[2023-11-27 00:48] LABS: ABG Refer to POC result
--- NOTE | 2023-11-27 03:24 | HO.SKINPHOTO ---
Location:buttocks Category:pressure injury Stage: Length: Width: Depth: cm Location: Category: Stage: Length: Width: Depth: cm Location: Category: Stage: Length: Width: Depth: cm Location: Category: Stage: Length: Width: Depth: cm Location: Category: Stage: Length: Width: Depth: cm Location: Category: Stage: Length: Width: Depth: cm
[2023-11-27] MEDS: Levothyroxine Sodium 125 MCG TABLET PO (05:50)
[2023-11-27] MEDS: Piperacillin Sodium/Tazobactam 4.5 GM in 0.9 % Sodium Chloride 100 ML IV ×3 (05:50→19:19)
[2023-11-27 06:27] LABS: Hematocrit 33.7 % (42.0-52.0); Hemoglobin 11.1 g/dl (14.0-18.0); Mean Corpuscular HGB Conc 32.9 g/dl (31.0-36.0); Mean Corpuscular Hemoglobin 30.4 pg (27.0-33.0); Mean Corpuscular Volume 92.3 fL (80.0-98.0); Mean Platelet Volume 9.8 fL (9.4-12.4); Platelet Count 167 X10*3/uL (160-400); Red Blood Count 3.65 X10*6/uL (4.60-5.80); Red Cell Distribution Width 15.9 % (11.0-16.0); White Blood Count 5.9 X10*3/uL (4.8-10.8)
[2023-11-27 07:26] LABS: Anion Gap 15 (12-20); Blood Urea Nitrogen 18 mg/dL (9-16); Carbon Dioxide 29 mmol/L (22-29); Chloride 102 mmol/L (96-108); Creatinine Clr Calc Pharmacy 155.8; Estimated Glomerular Filt Rate > 60; Glucose Fasting 89 mg/dL (60-99); Magnesium 1.9 mg/dL (1.6-2.6); Potassium 3.8 mmol/L (3.3-5.1); Sodium 142 mmol/L (135-145)
[2023-11-27 07:46] LABS: Calcium 8.2 mg/dL (8.4-10.2)
[2023-11-27] MEDS: Furosemide 20 MG TABLET PO (08:00)
[2023-11-27] MEDS: calcitrioL 0.25 MCG CAPSULE PO (08:00)
[2023-11-27] MEDS: Dicyclomine HCl 10 MG CAPSULE PO (08:00)
[2023-11-27] MEDS: Gabapentin 100 MG CAPSULE PO (08:01)
[2023-11-27] MEDS: 0.9 % Sodium Chloride Flush 3 ML SYRINGE IVFLUSH ×2 (08:01→20:04)
[2023-11-27] MEDS: Ascorbic Acid 500 MG TABLET PO (08:01)
[2023-11-27] MEDS: Baclofen 20 MG TABLET PO (08:01)
--- NOTE | 2023-11-27 08:49 | P.CONPL_ITS ---
History of Present Illness History of Present Illness Consult date: 11/27/23 Chief complaint: Pna Narrative: This is an inpatient pulmonary consultation. The patient is a 68M PMH tetraplegia due to lesion at C5-C7, complicated by neurogenic bladder status post suprapubic catheter, sacral decubitus ulcer, DVT with IVC filter, paroxysmal atrial fibrillation, hypothyroid presented with cough and shortness of breath. Patient lives at a correction, reports about 2 days of shortness of breath, feeling like he needs to cough but unable to bring anything up, froggy voice . Denies fever or chills. In ED, patient with significant hypoxia which did improve with some suctioning. CT of the chest personally reviewed by me, showed Abnormal endobronchial opacification of the right mainstem bronchus and bilateral lower lobe bronchi, right greater than left. Bilateral lower lobe atelectasis/pneumonia, right greater than left. Review of Systems 2 Constitutional: Constitutional: Denies fever(s) and Reports weakness Eyes: Eyes: Reports no additional eye complaints ENT: Reports system reviewed and no additional complaints, except as documented and Reports dysphagia Cardiovascular: Cardiovascular: Denies chest pain and Reports dyspnea Respiratory: Respiratory: Reports change in phlegm color, Reports chest congestion, Reports cough and Reports dyspnea Gastrointestinal: Gastrointestinal: Reports dysphagia Genitourinary: Genitourinary: Reports as per HPI Musculoskeletal: Musculoskeletal: Reports as per HPI and Reports abnormal gait Neurologic: Reports Neuro-related abnormal movements, Reports abnormal gait and Reports weakness Hematologic/Lymphatic: Hematologic/Lymphatic: Reports as per HPI [facility] Past Medical History Medical History (Updated 11/27/23 @ 08:54 by Dru Murillo MD) Pneumonia Urine retention Irreducible left inguinal hernia Autonomic dysfunction Hypothyroidism Hernia Atrial fibrillation Spasms of the hands or feet Spinal cord injury Family History Family History Sister Diabetes mellitus Surgical History Surgical History S/P tendon repair H/O hemorrhoidectomy S/P IVC filter H/O hernia repair H/O thyroidectomy Social History Social History Household Members: Other Household Members Other:: correction Housing: House Housing Other:: correction in [place] Do you presently have visiting nurse or other home services: No Alcohol intake: former Comment: low extremity paralysis Patient Tobacco Use Status: Never used Tobacco Advance Directives Date on File: 01/09/23 service: No Meds Allergies Allergy/AdvReac Type Severity Reaction Status Date / Time dicloxacillin [From DYNAPEN] Allergy Unknown UNKNOWN Verified 11/26/23 11:21 ofloxacin [From FLOXIN] AdvReac Intermediate UPSET Verified 11/26/23 11:21 STOMACH penicillin V AdvReac Unknown Abdominal Verified 11/26/23 11:21 Pain Active Medications: Current Medications Acetaminophen (Acetaminophen 325 Mg Tablet) 650 mg PO Q6H PRN PRN Reason: Pain, Mild (Pain Scale 1-3), fever or headache Albuterol/Ipratropium (Albuterol/Iprat 2.5/0.5mg 3 Ml Ampul.Neb) 3 ml INHALE RQ4H WHILE AWAKE PRN PRN Reason: sob Last Admin: 11/27/23 00:18 Dose: 3 ml Ascorbic Acid (Ascorbic Acid 500 Mg Tablet) 500 mg PO DAILY [facility] Last Admin: 11/27/23 08:01 Dose: 500 mg Baclofen (Baclofen 20 Mg Tablet) 40 mg PO BEDTIME [facility] Last Admin: 11/26/23 20:25 Dose: 40 mg Baclofen (Baclofen 20 Mg Tablet) 20 mg PO TID@0900,1300,1700 [facility] Last Admin: 11/27/23 08:01 Dose: 20 mg Calcitriol (Calcitriol 0.25 Mcg Capsule) 0.25 mcg PO DAILY [facility] Last Admin: 11/27/23 08:00 Dose: 0.25 mcg Calcium Carbonate (Calcium Carbonate 750 Mg Tab.Chew) 750 mg PO Q4H PRN PRN Reason: Heartburn Dicyclomine HCl (Dicyclomine Hcl 10 Mg Capsule) 10 mg PO QID [facility] Last Admin: 11/27/23 08:00 Dose: 10 mg Furosemide (Furosemide 20 Mg Tablet) 20 mg PO DAILY [facility]; Protocol Last Admin: 11/27/23 08:00 Dose: 20 mg Gabapentin (Gabapentin 600 Mg Tablet) 600 mg PO BEDTIME [facility] Last Admin: 11/26/23 20:24 Dose: 600 mg Gabapentin (Gabapentin 100 Mg Capsule) 100 mg PO BID@0800,1400 [facility] Last Admin: 11/27/23 08:01 Dose: 100 mg Guaifenesin (Guaifenesin 200 Mg/10 Ml 10 Ml Liquid) 10 ml PO Q4H PRN PRN Reason: Cough Last Admin: 11/26/23 23:43 Dose: 10 ml Piperacillin Sod/Tazobactam (Sod 4.5 gm/ Sodium Chloride) 100 mls @ 200 mls/hr IV Q6H [facility] Last Infusion: 11/27/23 06:46 Dose: Infused Levothyroxine Sodium (Levothyroxine Sodium 125 Mcg Tablet) 125 mcg PO DAILY@0630 [facility] Last Admin: 11/27/23 05:50 Dose: 125 mcg Magnesium Hydroxide (Milk Of Magnesia 30 Ml Oral.Susp) 30 ml PO DAILY PRN PRN Reason: Constipation Melatonin (Melatonin 3 Mg Tablet) 6 mg PO BEDTIME PRN PRN Reason: Insomnia Midodrine (Midodrine Hcl 10 Mg Tablet) 10 mg PO TID PRN PRN Reason: SBP <110 Sodium Chloride (0.9 % Sodium Chloride Flush 3 Ml Syringe) 3 ml IVFLUSH QSHIFT [facility] Last Admin: 11/27/23 08:01 Dose: 3 ml Trazodone HCl (Trazodone Hcl 25 Mg Halftab) 75 mg PO BEDTIME [facility] Last Admin: 11/26/23 20:24 Dose: 75 mg Warfarin Sodium (Warfarin Sodium 4 Mg Tablet) 4 mg PO MoTuWeFrSa@1800 [facility] Warfarin Sodium (Warfarin Sodium 3 Mg Tablet) 3 mg PO SuTh@1800 [facility] Last Admin: 11/26/23 20:24 Dose: 3 mg Home Medications ?Medication ?Instructions ?Recorded ?Confirmed ?Last Taken ?Type ascorbic acid (vitamin C) 500 mg 500 mg PO DAILY 03/23/20 11/26/23 03/23/20 History tablet baclofen 10 mg tablet 20 mg PO TID@0900,1300,1700 03/23/20 11/26/23 03/23/20 History baclofen 10 mg tablet 40 mg PO BEDTIME 03/23/20 11/26/23 03/23/20 History calcitriol 0.25 mcg capsule 0.25 mcg PO DAILY 03/23/20 11/26/23 03/23/20 History docusate sodium 100 mg capsule 200 mg PO BEDTIME 03/23/20 11/26/23 03/23/20 History (Colace) cholecalciferol (vitamin D3) 1,250 1,250 mcg PO QMONTH 01/09/23 11/26/23 11/23/23 History mcg (50,000 unit) tablet dicyclomine 10 mg capsule 10 mg PO QID 01/09/23 11/26/23 Unknown History furosemide 20 mg tablet 20 mg PO DAILY 01/09/23 11/26/23 Unknown History gabapentin 100 mg capsule 100 mg PO BID@0800,1400 01/09/23 11/26/23 Unknown History gabapentin 600 mg tablet 600 mg PO BEDTIME 01/09/23 11/26/23 Unknown History melatonin 10 mg tablet 10 mg PO BEDTIME Sleep 01/09/23 11/26/23 Unknown History midodrine 10 mg tablet 10 mg PO NEEDED PRN SBP <110 01/09/23 11/26/23 Unknown History acetaminophen 325 mg tablet 650 mg PO Q6H PRN Fever Or Pain 11/26/23 11/26/23 Unknown History levothyroxine 125 mcg tablet 125 mcg PO DAILY 11/26/23 11/26/23 Unknown History multivitamin-iron 9 mg-folic acid 1 tab PO DAILY 11/26/23 11/26/23 Unknown History 400 mcg-calcium and minerals tablet nystatin 100,000 unit/gram topical 1 appl topical BID 11/26/23 11/26/23 Unknown History cream nystatin 100,000 unit/gram topical 1 appl topical BID 11/26/23 11/26/23 Unknown History powder (Nyamyc) trazodone 150 mg tablet 75 mg PO BEDTIME 11/26/23 11/26/23 Unknown History warfarin 1 mg tablet 3 mg PO SUTH@199911/26/23 11/26/23 Unknown History warfarin 4 mg tablet 4 mg PO MOTUWEFRSA@199911/26/23 11/26/23 11/25/23 History Physical Exam 2 Vital Signs: Vital Signs: Last Vital Signs Temp 97.0 F 11/27/23 07:24 Pulse 61 11/27/23 07:24 Resp 18 11/27/23 07:24 BP 103/61 11/27/23 08:00 Pulse Ox 97 11/27/23 07:24 O2 Del Method Nasal Cannula 11/27/23 07:24 O2 Flow Rate 3 11/27/23 07:24 BMI result Body Mass Index 34.1 Const: General: cooperative and no acute distress Chest: Chest palpation & inspection: normal inspection of the chest and no tenderness Resp: Effort & Inspection: normal respiratory effort and no respiratory distress Auscultation: diminished lung sounds Cardio: Heart sounds: S1 normal heart sound present and S2 normal heart sound present GI: Palpation (GI): Soft to palpation, nontender and No Rebound tenderness present Auscultation: normal bowel sounds Skin: General skin exam: no rashes or lesions noted Extrem: General: Yes no clubbing, cyanosis or edema Results Laboratory Findings 11/27/23 05:28 11/27/23 05:28 ABG, PT/INR, D-dimer: PT/INR, D-dimer PT 28.3 SEC (11.1-13.3) H 11/26/23 18:00 INR 2.3 (0.9-1.1) H 11/26/23 18:00 Abnormal lab findings: Abnormal Labs 11/26/23 11/26/23 11/26/23 11:49 11:56 12:12 RBC 3.97 L Hgb 11.9 L Hct 36.1 L RDW 16.2 H MPV 9.1 L Lymph % (Auto) 17.9 L PT 26.5 H D INR 2.2 H ABG pCO2 at Pt Temp ABG pO2 at Pt Temp ABG HCO3 VBG pH 7.46 H VBG HCO3 31 H BUN 24 H Calcium B-Natriuretic Peptide 304 H Urine Protein 100 (2+) H Urine Blood Moderate (2+) H Urine Nitrite Positive H Ur Leukocyte Esterase Large (3+) H Urine RBC >20 H Urine WBC >50 H 11/26/23 11/26/23 11/26/23 16:31 18:00 19:00 RBC Hgb Hct RDW MPV Lymph % (Auto) PT 28.3 H INR 2.3 H ABG pCO2 at Pt Temp 46 H ABG pO2 at Pt Temp 71 L ABG HCO3 31 H VBG pH VBG HCO3 BUN Calcium B-Natriuretic Peptide Urine Protein 30 (1+) H Urine Blood Large (3+) H Urine Nitrite Ur Leukocyte Esterase Large (3+) H Urine RBC >20 H Urine WBC >50 H 11/27/23 05:28 RBC 3.65 L Hgb 11.1 L Hct 33.7 L RDW MPV Lymph % (Auto) PT INR ABG pCO2 at Pt Temp ABG pO2 at Pt Temp ABG HCO3 VBG pH VBG HCO3 BUN 18 H Calcium 8.2 L D B-Natriuretic Peptide Urine Protein Urine Blood Urine Nitrite Ur Leukocyte Esterase Urine RBC Urine WBC Assessment and Plan (1) Mucus plugging of bronchi: Status: Acute (2) Pneumonia: Qualifiers: Pneumonia type: aspiration pneumonia Laterality: bilateral Lung location: lower lobe of lung Aspiration pneumonia type: unspecified Qualified Code(s): J69.0 - Pneumonitis due to inhalation of food and vomit Status: Acute Plan start mucomyst with albuterol BID x 72 hours request manual CPT from respiratory should also use the aerobika 3-4 times a day continue abx coverage dysphagia diet as per speech and swallow start chlorhexadine mouthwash BID Procedures Date of Service Date of Service: 11/27/23
--- NOTE | 2023-11-27 10:21 | P.PNIM_ITS ---
Subjective Subjective Date of Service: 11/27/23 Interval History: overall improved but still sob Physical Exam 2 Vital Signs: Vital Signs: Last Vital Signs Temp 97.0 F 11/27/23 07:24 Pulse 61 11/27/23 07:24 Resp 18 11/27/23 07:24 BP 103/61 11/27/23 08:00 Pulse Ox 97 11/27/23 07:24 O2 Del Method Nasal Cannula 11/27/23 07:24 O2 Flow Rate 3 11/27/23 07:24 BMI result Body Mass Index 34.1 General: AO X 3, n o acute distress R perico: rhonchi roberth ateral, no accesso ry muscles used CV S: S1,S2,RRR GI: s uprapubic and colo stomy Neuro: tetr aplegia Psych: aida ropriate affect, a ppropriate insight Objective Data Active Medications Acetaminophen (Acetaminophen 325 Mg Tablet) 650 mg PO Q6H PRN PRN Reason: Pain, Mild (Pain Scale 1-3), fever or headache Acetylcysteine (Acetylcysteine 10 % 400 Mg/4 Ml Vial) 400 mg INHALE RBID [facility] Albuterol/Ipratropium (Albuterol/Iprat 2.5/0.5mg 3 Ml Ampul.Neb) 3 ml INHALE RQ4H WHILE AWAKE [facility] Ascorbic Acid (Ascorbic Acid 500 Mg Tablet) 500 mg PO DAILY [facility] Last Admin: 11/27/23 08:01 Dose: 500 mg Documented By: TANIKA Baclofen (Baclofen 20 Mg Tablet) 40 mg PO BEDTIME [facility] Last Admin: 11/26/23 20:25 Dose: 40 mg Documented By: JACEK Baclofen (Baclofen 20 Mg Tablet) 20 mg PO TID@0900,1300,1700 [facility] Last Admin: 11/27/23 08:01 Dose: 20 mg Documented By: TANIKA Calcitriol (Calcitriol 0.25 Mcg Capsule) 0.25 mcg PO DAILY [facility] Last Admin: 11/27/23 08:00 Dose: 0.25 mcg Documented By: TANIKA Calcium Carbonate (Calcium Carbonate 750 Mg Tab.Chew) 750 mg PO Q4H PRN PRN Reason: Heartburn Dicyclomine HCl (Dicyclomine Hcl 10 Mg Capsule) 10 mg PO QID [facility] Last Admin: 11/27/23 08:00 Dose: 10 mg Documented By: TANIKA Furosemide (Furosemide 20 Mg Tablet) 20 mg PO DAILY [facility]; Protocol Last Admin: 11/27/23 08:00 Dose: 20 mg Documented By: TANIKA Gabapentin (Gabapentin 600 Mg Tablet) 600 mg PO BEDTIME [facility] Last Admin: 11/26/23 20:24 Dose: 600 mg Documented By: JACEK Gabapentin (Gabapentin 100 Mg Capsule) 100 mg PO BID@0800,1400 [facility] Last Admin: 11/27/23 08:01 Dose: 100 mg Documented By: TANIKA Guaifenesin (Guaifenesin 200 Mg/10 Ml 10 Ml Liquid) 10 ml PO Q4H PRN PRN Reason: Cough Last Admin: 11/26/23 23:43 Dose: 10 ml Documented By: JACEK Piperacillin Sod/Tazobactam (Sod 4.5 gm/ Sodium Chloride) 100 mls @ 200 mls/hr IV Q6H [facility] Last Infusion: 11/27/23 06:46 Dose: Infused Documented By: JACEK Levothyroxine Sodium (Levothyroxine Sodium 125 Mcg Tablet) 125 mcg PO DAILY@0630 [facility] Last Admin: 11/27/23 05:50 Dose: 125 mcg Documented By: JACEK Magnesium Hydroxide (Milk Of Magnesia 30 Ml Oral.Susp) 30 ml PO DAILY PRN PRN Reason: Constipation Melatonin (Melatonin 3 Mg Tablet) 6 mg PO BEDTIME PRN PRN Reason: Insomnia Midodrine (Midodrine Hcl 10 Mg Tablet) 10 mg PO TID PRN PRN Reason: SBP <110 Sodium Chloride (0.9 % Sodium Chloride Flush 3 Ml Syringe) 3 ml IVFLUSH QSHIFT [facility] Last Admin: 11/27/23 08:01 Dose: 3 ml Documented By: TANIKA Trazodone HCl (Trazodone Hcl 25 Mg Halftab) 75 mg PO BEDTIME [facility] Last Admin: 11/26/23 20:24 Dose: 75 mg Documented By: JACEK Warfarin Sodium (Warfarin Sodium 4 Mg Tablet) 4 mg PO MoTuWeFrSa@1800 [facility] Warfarin Sodium (Warfarin Sodium 3 Mg Tablet) 3 mg PO SuTh@1800 [facility] Last Admin: 11/26/23 20:24 Dose: 3 mg Documented By: JACEK Labs 11/27/23 05:28 11/27/23 05:28 Labs: Laboratory Results - last 24 hr 11/26/23 11/26/23 11/26/23 11:49 11:56 12:12 MCV 90.9 MCH 30.0 MCHC 33.0 RDW 16.2 H Plt Count 168 D MPV 9.1 L Immature Gran % (Auto) 0.3 Neut % (Auto) 72.4 Lymph % (Auto) 17.9 L [place] % (Auto) 6.7 Eos % (Auto) 2.5 Baso % (Auto) 0.2 Lymph # (Auto) 1.6 [place] # (Auto) 0.6 Eos # (Auto) 0.2 Baso # (Auto) 0.0 Abs Immat Gran (auto) 0.03 Absolute Neuts (auto) 6.3 Absolute Nucleated RBC 0.000 Nucleated RBC % (auto) 0.0 PT 26.5 H D INR 2.2 H APTT 31.6 D-Dimer High Sensitivty 207 O2 Saturation ABG pH at Pt Temp ABG pCO2 at Pt Temp ABG pO2 at Pt Temp ABG HCO3 ABG Base Excess (Actual) VBG pH 7.46 H VBG pCO2 43 VBG pO2 61 VBG HCO3 31 H VBG O2 Saturation 89.0 VBG Base Excess 6.8 Anion Gap 14 Estim Creat Clear Calc 144.9 Estimated GFR > 60 Random Glucose 95 Fasting Glucose Lactic Acid 0.9 Calcium 9.4 Magnesium Total Bilirubin 0.9 AST 19 ALT 16 Alkaline Phosphatase 83 Troponin I High Sens 17.9 B-Natriuretic Peptide 304 H Total Protein 7.6 Albumin 4.2 Urine Color Dark Yellow Urine Appearance Turbid Urine pH 8.0 Ur Specific Floral 1.025 Urine Protein 100 (2+) H Urine Glucose (UA) Negative Urine Ketones Negative Urine Blood Moderate (2+) H Urine Nitrite Positive H Ur Leukocyte Esterase Large (3+) H Urine RBC >20 H Urine WBC >50 H Ur Squamous Epith Cells 0-2 Other Crystals Present Urine Bacteria 4+ Hyaline Casts 3-5 Influenza Type A (PCR) NEGATIVE Influenza Type B (PCR) NEGATIVE RSV RNA Qual (PCR) NEGATIVE SARS-CoV-2 RNA (RT-PCR) NEGATIVE S. pyogenes GrpA ZACKERY 11/26/23 11/26/23 11/26/23 12:16 16:31 18:00 MCV MCH MCHC RDW Plt Count MPV Immature Gran % (Auto) Neut % (Auto) Lymph % (Auto) [place] % (Auto) Eos % (Auto) Baso % (Auto) Lymph # (Auto) [place] # (Auto) Eos # (Auto) Baso # (Auto) Abs Immat Gran (auto) Absolute Neuts (auto) Absolute Nucleated RBC Nucleated RBC % (auto) PT 28.3 H INR 2.3 H APTT D-Dimer High Sensitivty O2 Saturation 92.0 ABG pH at Pt Temp 7.43 ABG pCO2 at Pt Temp 46 H ABG pO2 at Pt Temp 71 L ABG HCO3 31 H ABG Base Excess (Actual) 5.9 VBG pH VBG pCO2 VBG pO2 VBG HCO3 VBG O2 Saturation VBG Base Excess Anion Gap Estim Creat Clear Calc Estimated GFR Random Glucose Fasting Glucose Lactic Acid Calcium Magnesium Total Bilirubin AST ALT Alkaline Phosphatase Troponin I High Sens B-Natriuretic Peptide Total Protein Albumin Urine Color Urine Appearance Urine pH Ur Specific [place] Urine Protein Urine Glucose (UA) Urine Ketones Urine Blood Urine Nitrite Ur Leukocyte Esterase Urine RBC Urine WBC Ur Squamous Epith Cells Other Crystals Urine Bacteria Hyaline Casts Influenza Type A (PCR) Influenza Type B (PCR) RSV RNA Qual (PCR) SARS-CoV-2 RNA (RT-PCR) S. pyogenes GrpA ZACKERY Negative 11/26/23 11/27/23 19:00 05:28 MCV 92.3 MCH 30.4 MCHC 32.9 RDW 15.9 Plt Count 167 MPV 9.8 Immature Gran % (Auto) Neut % (Auto) Lymph % (Auto) [place] % (Auto) Eos % (Auto) Baso % (Auto) Lymph # (Auto) [place] # (Auto) Eos # (Auto) Baso # (Auto) Abs Immat Gran (auto) Absolute Neuts (auto) Absolute Nucleated RBC 0.000 Nucleated RBC % (auto) 0.0 PT INR APTT D-Dimer High Sensitivty O2 Saturation ABG pH at Pt Temp ABG pCO2 at Pt Temp ABG pO2 at Pt Temp ABG HCO3 ABG Base Excess (Actual) VBG pH VBG pCO2 VBG pO2 VBG HCO3 VBG O2 Saturation VBG Base Excess Anion Gap 15 Estim Creat Clear Calc 155.8 Estimated GFR > 60 Random Glucose Fasting Glucose 89 Lactic Acid Calcium 8.2 L D Magnesium 1.9 Total Bilirubin AST ALT Alkaline Phosphatase Troponin I High Sens B-Natriuretic Peptide Total Protein Albumin Urine Color Yellow Urine Appearance Turbid Urine pH 5.5 Ur Specific Floral 1.025 Urine Protein 30 (1+) H Urine Glucose (UA) Negative Urine Ketones Trace Urine Blood Large (3+) H Urine Nitrite Negative Ur Leukocyte Esterase Large (3+) H Urine RBC >20 H Urine WBC >50 H Ur Squamous Epith Cells 6-10 Other Crystals Urine Bacteria 2+ Hyaline Casts 11-20 Influenza Type A (PCR) Influenza Type B (PCR) RSV RNA Qual (PCR) SARS-CoV-2 RNA (RT-PCR) S. pyogenes GrpA ZACKERY Microbiology Microbiology Results: Microbiology 11/26/23 Unknown Urine Culture - Final Urine Catheterized - [place] Catheter Assessment and Plan (1) Mucus plugging of bronchi: Status: Acute Plan 68M PMH tetraplegia due to lesion at C5-C7, complicated by neurogenic bladder status post suprapubic catheter, sacral decubitus ulcer, DVT with IVC filter, paroxysmal atrial fibrillation, hypothyroid presented with cough and shortness of breath Acute hypoxic respiratory failure due to pneumonia with concern for aspiration continue IV Zosyn, pulm eval, [facility], follow-up cultures, wean O2 as tolerated DuoNebs, pulmonary toilet History of DVT Continue Coumadin, monitor INR Paroxysmal atrial fibrillation Continue Coumadin Tetraplegia with neurogenic bladder, suprapubic catheter with pyuria Unclear if clinically significant being covered with IV Zosyn culture negative Hypothyroid Continue levothyroxine Full code reason for continued hospitalization:hypoxia Quality Stroke Does the patient have a stroke diagnosis?: No VTE Prior VTE?: Yes VTE Risk Level:: Medical - moderate - high VTE Device Contraindication: Treatment Not Indicated VTE Drug Contraindication: N/A - Med Ordered
[2023-11-27] MEDS: guaiFENesin 200 MG/10 ML 10 ML LIQUID PO (10:29)
--- NOTE | 2023-11-27 12:26 | MHC.CLN ---
Addendum entered by Starr Chawla RD 11/27/23 13:11: SEEN BY [employer] WITH REC FOR NPO. FOLLOW FOR DIET ADVANCEMENT. START SUPPLEMENT WHEN ABLE. Original Note: NUTRITION DIET=REGULAR. INCREASED NUTRITION NEEDS DUE TO PRESSURE INJURIES. AGREES TO ENSURE MAX PROTEIN BID. PROVIDES 300 KCALS, 60 G PROTEIN. WEIGHT GAIN IS NOT DESIRABLE. SUPPLEMENT APPROPRIATE TO PROMOTE WOUND HEALING. FOLLOW FOR INTAKE AND SKIN INTEGRITY. SEE CLINICAL NUTRITION ASSESSMENT 11/27/23.
--- NOTE | 2023-11-27 12:28 | MHC.CM.PN ---
SPOKE WITH GIO FROM [facility] SHE CAN BE REched at [phone] she willbe the one to contact fo rpts return to alf gio will be sending necessary paperwor thru fax to cm dept pt will need bls when dcd
[2023-11-27 13:18] LABS: INTERNATIONAL NORM RATIO 2.7 (0.9-1.1); Prothrombin Time 33.1 SEC (11.1-13.3)
--- NOTE | 2023-11-27 14:42 | MHC.SL.SWA ---
Speech Pathologist Impression: Risk of aspiration, oropharyngeal dysphagia Risk of Aspiration Due to: Medically Fragile History of Pneumonia Weak Cough Dysphasia Diet Status: DOWNGRADE to NPO Liquid Consistency and Strategies for Safe Swallow: Liquid Intake Recommendation: NPO Solid Food Consistency: Dietary Recommendations: NPO Additional Modifications to Solid Foods: Patient seen for bedside swallow exam, presenting with overt s/s of aspiration with PO intake. Patient consumed trace amount of puree and thin liquid consistencies, produced immediate gurgly cough and ineffective throat clearing. Per EMR, patient has been unable to expel secretions on his own and has needed nasogastric suctioning, at times with minimal effect. Recommend downgrade to NPO status at this time. Provide oral care frequently for comfort and hygiene, elevate HOB at least 30 degrees. PASSENGER CAR CONDUCTOR to re-evaluate tomorrow morning. Oral Medication Intake: NPO Please contact the pharmacy regarding appropriate crushable or liquid drug formulations that are available whenever modified delivery is recommended. Supervision While Eating and Drinking for Safe Swallow: PO with PASSENGER CAR CONDUCTOR Swallowing Recommended Treatments: Compens. Strategy Educat. Recommendation for Speech: Inpatient Speech Therapy Comment: PASSENGER CAR CONDUCTOR to repeat clinical swallow exam in the a.m. Should patient's difficulties persist, he may benefit from additional instrumental (MBSS) to further evaluate. Frequency/Duration: M-F PRN Date Range for Service Req: Timeline to reassess: Restaurant Managing Partner Clinican/Clinical Fellow: No Supervisory Statement: I have reviewed and agree with the student/clinical fellow's documentation: N/A Speech Language Pathologist: Irma Carranza M.A., CCC-PASSENGER CAR CONDUCTOR
--- NOTE | 2023-11-27 14:58 | HO.WOUND ---
Wound Consult: Initial 68yr old Male? admitted to [facility] [place] on 11/26/23 - See progress notes and H&P for detailed history.? Wound consult placed for Sacral wound POA.? Patient agreeable to assessment and photo documentation.? He is a paraplegic at baseline and wheelchair for mobility. Patient reports he is in a chcf and spending most of his day sitting in his wheelchair, He reports he does have a specialty cushion but since he has an ostomy and suprapubic cath he is only cleaned once a day. He was educated his buttock coccyx and posterior thighs and scrotum shows significant signs of chronic MASD (Moisture Associated Skin Damage). It is unclear where the moisture is originating from suspect his penis or leaking from the suprapubic cath site. Coccyx Etiology: ?Stage 3 Pressure Injury ?Present on Admission Measurements: 1.5cm x 0.4cm x 0.2cm Wound Bed: moist marbled wound bed with pink and yellow slough Drainage / Odor: serosang drainage noted Edges: ? Linear and attached Vivien wound: Significant MASD noted friction noted to posterior thighs and buttock as well - No Induration, Fluctuance or Warmth noted Pain: denies feeling Goals of Treatment: ? Triad to allow for moist wound healing and to protect from friction and moisture Buttock posterior thighs, scrotum and bilateral groin - MASD (Moisture Associated Skin Damage) - Recommendations: 1. Turn and Reposition every 2 hours and as needed for patient comfort.? Use pillows or wedges to support off loading positions. Use wedges for off loading. 2. Off Load all bony prominences with use of pillows and heel boots if needed.? Apply Preventative foams where needed. ? 3. Monitor for incontinence and moisture control, use barrier creams when needed for prevention and treatment. 4. Provide adequate and supplemental nutrition.? 5. Order low air loss mattress - Specialty mattress from [employer] - Pulsate extra long - Not the Big Turn. 6. When applicable maintain blood glucose levels per Providers order. 7. Coccyx, Buttock, Thigh, scrotum and groin - Off Load Pressure - Cleanse with PH balance spray or wipes, pat dry. ?Apply thin layer of Triad to wound bed - only pat and dab no scrub and rub when soiling occurs. Reapply thin layer PRN after each episode of incontinence. Re-consult wound care Nurse for wound deterioration or wound changes.
--- NOTE | 2023-11-27 15:09 | HO.OSTOMY ---
Ostomy Consult: Initial 68yr old Male? [place] [facility] [place] See progress notes and H&P for detailed history.? Ostomy consult placed for Flush stoma.? Patient agreeable to assessment and photo documentation.? He is a paraplegic at baseline and wheelchair for mobility. Arrival to bedside pouch was just replaced adherent to skin - his abdomen is firm and round. Pouch is intact will defer assessment to tomorrow for pouch change. The stoma is not visible as the stool is thick pasty green but not able to be palpated will likely need convexity applied. Will assess at future time and date.
[2023-11-27] MEDS: Acetylcysteine 10 % 400 MG/4 ML VIAL INHALE (20:29)
[2023-11-27] MEDS: Throat Lozenge, Medicated LOZENGE 1 LOZENGE MUCOUS MEM (22:31)
[2023-11-28] VITALS (8 sets, daily range): BP systolic 107–162; BP diastolic 59–96; PULSE 60–66; RESP 1–19; TEMP 36.2–36.6; O2SAT 93–96
[2023-11-28] MEDS: Piperacillin Sodium/Tazobactam 4.5 GM in 0.9 % Sodium Chloride 100 ML IV ×5 (00:03→23:16)
[2023-11-28] MEDS: Throat Lozenge, Medicated LOZENGE 1 LOZENGE MUCOUS MEM (00:39)
[2023-11-28] MEDS: Acetylcysteine 10 % 400 MG/4 ML VIAL INHALE ×2 (07:38→20:26)
[2023-11-28] MEDS: Albuterol/Iprat 2.5/0.5MG 3 ML AMPUL.NEB INHALE ×4 (07:38→20:26)
[2023-11-28 07:39] LABS: Hematocrit 35.3 % (42.0-52.0); Hemoglobin 11.6 g/dl (14.0-18.0); Mean Corpuscular HGB Conc 32.9 g/dl (31.0-36.0); Mean Corpuscular Hemoglobin 29.8 pg (27.0-33.0); Mean Corpuscular Volume 90.7 fL (80.0-98.0); Mean Platelet Volume 9.4 fL (9.4-12.4); Platelet Count 181 X10*3/uL (160-400); Red Blood Count 3.89 X10*6/uL (4.60-5.80); White Blood Count 6.5 X10*3/uL (4.8-10.8)
[2023-11-28 07:44] LABS: INTERNATIONAL NORM RATIO 2.4 (0.9-1.1); Prothrombin Time 28.9 SEC (11.1-13.3)
[2023-11-28 07:53] LABS: Anion Gap 15 (12-20); Blood Urea Nitrogen 15 mg/dL (9-16); Calcium 8.7 mg/dL (8.4-10.2); Carbon Dioxide 26 mmol/L (22-29); Chloride 106 mmol/L (96-108); Creatinine Clr Calc Pharmacy 155.8; Estimated Glomerular Filt Rate > 60; Glucose Fasting 94 mg/dL (60-99); Potassium 3.4 mmol/L (3.3-5.1); Sodium 144 mmol/L (135-145)
--- NOTE | 2023-11-28 09:03 | HO.PM.IMPN ---
Subjective Subjective Date of Service: 11/28/23 Interval History: sob improving Physical Exam Vital Signs: Vital Signs: Last Vital Signs Temp 97.9 F 11/28/23 08:00 Pulse 60 11/28/23 08:00 Resp 18 11/28/23 08:00 BP 162/96 H 11/28/23 08:00 Pulse Ox 96 11/28/23 08:00 O2 Del Method Nasal Cannula 11/28/23 08:00 O2 Flow Rate 2 11/28/23 08:00 BMI result Body Mass Index 34.1 General: AO X 3, n o acute distress R perico: rhonchi roberth ateral, no accesso ry muscles used CV S: S1,S2,RRR GI: s uprapubic and colo stomy Neuro: tetr aplegia Psych: aida ropriate affect, a ppropriate insight Objective Data Active Medications Acetaminophen (Acetaminophen 325 Mg Tablet) 650 mg PO Q6H PRN PRN Reason: Pain, Mild (Pain Scale 1-3), fever or headache Acetylcysteine (Acetylcysteine 10 % 400 Mg/4 Ml Vial) 400 mg INHALE RBID [facility] Last Admin: 11/28/23 07:38 Dose: 400 mg Documented By: YUSRA Albuterol/Ipratropium (Albuterol/Iprat 2.5/0.5mg 3 Ml Ampul.Neb) 3 ml INHALE RQ4H WHILE AWAKE [facility] Last Admin: 11/28/23 07:38 Dose: 3 ml Documented By: YUSRA Ascorbic Acid (Ascorbic Acid 500 Mg Tablet) 500 mg PO DAILY [facility] Last Admin: 11/28/23 08:26 Dose: Not Given Documented By: TANIKA Non-Admin Reason: NPO Baclofen (Baclofen 20 Mg Tablet) 40 mg PO BEDTIME [facility] Last Admin: 11/27/23 20:19 Dose: Not Given Documented By: JOSEPH Non-Admin Reason: NPO Baclofen (Baclofen 20 Mg Tablet) 20 mg PO TID@0900,1300,1700 [facility] Last Admin: 11/28/23 08:26 Dose: Not Given Documented By: TANIKA Non-Admin Reason: NPO Benzocaine (Throat Lozenge, Medicated Lozenge) 1 lozenge MUCOUS MEM Q2H PRN PRN Reason: Cough Last Admin: 11/28/23 00:39 Dose: 1 lozenge Documented By: JOSEPH Calcitriol (Calcitriol 0.25 Mcg Capsule) 0.25 mcg PO DAILY [facility] Last Admin: 11/28/23 08:26 Dose: Not Given Documented By: TANIKA Non-Admin Reason: NPO Calcium Carbonate (Calcium Carbonate 750 Mg Tab.Chew) 750 mg PO Q4H PRN PRN Reason: Heartburn Dicyclomine HCl (Dicyclomine Hcl 10 Mg Capsule) 10 mg PO QID [facility] Last Admin: 11/28/23 08:26 Dose: Not Given Documented By: TANIKA Non-Admin Reason: NPO Furosemide (Furosemide 20 Mg Tablet) 20 mg PO DAILY [facility]; Protocol Last Admin: 11/28/23 08:26 Dose: Not Given Documented By: TANIKA Non-Admin Reason: NPO Gabapentin (Gabapentin 600 Mg Tablet) 600 mg PO BEDTIME [facility] Last Admin: 11/27/23 20:19 Dose: Not Given Documented By: JOSEPH Non-Admin Reason: NPO Gabapentin (Gabapentin 100 Mg Capsule) 100 mg PO BID@0800,1400 [facility] Last Admin: 11/28/23 08:26 Dose: Not Given Documented By: TANIKA Non-Admin Reason: NPO Guaifenesin (Guaifenesin 200 Mg/10 Ml 10 Ml Liquid) 10 ml PO Q4H PRN PRN Reason: Cough Last Admin: 11/27/23 10:29 Dose: 10 ml Documented By: TANIKA Piperacillin Sod/Tazobactam (Sod 4.5 gm/ Sodium Chloride) 100 mls @ 200 mls/hr IV Q6H [facility] Last Infusion: 11/28/23 05:55 Dose: Infused Documented By: JOSEPH Levothyroxine Sodium (Levothyroxine Sodium 125 Mcg Tablet) 125 mcg PO DAILY@0630 [facility] Last Admin: 11/28/23 05:59 Dose: Not Given Documented By: JOSEPH Non-Admin Reason: NPO Magnesium Hydroxide (Milk Of Magnesia 30 Ml Oral.Susp) 30 ml PO DAILY PRN PRN Reason: Constipation Melatonin (Melatonin 3 Mg Tablet) 6 mg PO BEDTIME PRN PRN Reason: Insomnia Midodrine (Midodrine Hcl 10 Mg Tablet) 10 mg PO TID PRN PRN Reason: SBP <110 Sodium Chloride (0.9 % Sodium Chloride Flush 3 Ml Syringe) 3 ml IVFLUSH QSHIFT [facility] Last Admin: 11/28/23 08:45 Dose: Not Given Documented By: TANIKA Non-Admin Reason: Previously Administered Trazodone HCl (Trazodone Hcl 25 Mg Halftab) 75 mg PO BEDTIME [facility] Last Admin: 11/27/23 20:19 Dose: Not Given Documented By: JOSEPH Non-Admin Reason: NPO Warfarin Sodium (Warfarin Sodium 4 Mg Tablet) 4 mg PO MoTuWeFrSa@1800 [facility] Last Admin: 11/27/23 17:44 Dose: Not Given Documented By: TANIKA Non-Admin Reason: NPO Warfarin Sodium (Warfarin Sodium 3 Mg Tablet) 3 mg PO SuTh@1800 [facility] Last Admin: 11/26/23 20:24 Dose: 3 mg Documented By: JACEK Labs 11/28/23 07:10 11/28/23 07:10 Labs: Laboratory Results - last 24 hr 11/27/23 11/28/23 13:02 07:10 MCV 90.7 MCH 29.8 MCHC 32.9 RDW 16.0 Plt Count 181 MPV 9.4 Absolute Nucleated RBC 0.000 Nucleated RBC % (auto) 0.0 PT 33.1 H 28.9 H INR 2.7 H 2.4 H Anion Gap 15 Estim Creat Clear Calc 155.8 Estimated GFR > 60 Fasting Glucose 94 Calcium 8.7 D Microbiology Microbiology Results: Microbiology 11/26/23 12:12 Blood Culture - Preliminary Blood - Venous No growth after 24 hours. 11/26/23 11:49 Blood Culture - Preliminary Blood - Venous No growth after 24 hours. 11/26/23 Unknown Urine Culture - Final Urine Catheterized - [place] Catheter Assessment and Plan (1) Mucus plugging of bronchi: Status: Acute Plan 68M PMH tetraplegia due to lesion at C5-C7, complicated by neurogenic bladder status post suprapubic catheter, sacral decubitus ulcer, DVT with IVC filter, paroxysmal atrial fibrillation, hypothyroid presented with cough and shortness of breath Acute hypoxic respiratory failure due to pneumonia with concern for aspiration/dysphagia continue IV Zosyn, pulm appreciated - continue pulm toilet, abx, follow up repeat cxr, no plan for bronch for now CIVIL ENGINEERING DESIGN DRAFTSPERSON appreciated, npo for now, follow up, ?mbss wean O2 as tolerated, now down to 2 L DuoNebs, pulmonary toilet History of DVT Continue Coumadin, monitor INR Paroxysmal atrial fibrillation Continue Coumadin Tetraplegia with neurogenic bladder, suprapubic catheter with pyuria Unclear if clinically significant being covered with IV Zosyn culture negative Hypothyroid Continue levothyroxine Full code reason for continued hospitalization:hypoxia, npo Quality Stroke Does the patient have a stroke diagnosis?: No VTE Prior VTE?: Yes VTE Risk Level:: Medical - moderate - high VTE Device Contraindication: Treatment Not Indicated VTE Drug Contraindication: N/A - Med Ordered
--- NOTE | 2023-11-28 09:08 | P.PNPL_ITS ---
Subjective Subjective Date of Service: 11/28/23 Interval history: The patient was seen on exam. He was made NPO. Has been using the Mucomyst. Also getting manual chest PT in we did go over the use of the Aerobika. Breath sounds seem better. He is still on oxygen. Recommend getting a chest x-ray by tomorrow. If the x-ray continues to be abnormal consider bronchoscopy for further therapeutic and diagnostic interventions. Continue antibiotics for now. Clinically seems to be stable. Objective Data Labs 11/28/23 07:10 11/28/23 07:10 Labs: Laboratory Results - last 24 hr 11/27/23 11/28/23 13:02 07:10 WBC 6.5 RBC 3.89 L Hgb 11.6 L Hct 35.3 L MCV 90.7 MCH 29.8 MCHC 32.9 RDW 16.0 Plt Count 181 MPV 9.4 Absolute Nucleated RBC 0.000 Nucleated RBC % (auto) 0.0 PT 33.1 H 28.9 H INR 2.7 H 2.4 H Sodium 144 Potassium 3.4 Chloride 106 Carbon Dioxide 26 Anion Gap 15 BUN 15 Creatinine 0.67 Estim Creat Clear Calc 155.8 Estimated GFR > 60 Fasting Glucose 94 Calcium 8.7 D Microbiology Microbiology Results: Microbiology 11/26/23 12:12 Blood - Venous Blood Culture - Preliminary No growth after 24 hours. 11/26/23 11:49 Blood - Venous Blood Culture - Preliminary No growth after 24 hours. 11/26/23 Unknown Urine Catheterized - [place] Catheter Urine Culture - Final Review of Systems Constitutional: Denies fever(s) and Reports weakness Eyes: Reports no additional eye complaints Reports system reviewed and no additional complaints, except as documented and Reports dysphagia Cardiovascular: Denies chest pain and Reports dyspnea Respiratory: Reports change in phlegm color, Reports chest congestion, Reports cough and Reports dyspnea Gastrointestinal: Reports dysphagia Genitourinary: Reports as per HPI Musculoskeletal: Reports as per HPI and Reports abnormal gait Reports Neuro-related abnormal movements, Reports abnormal gait and Reports weakness Hematologic/Lymphatic: Reports as per HPI Physical Exam 2 Vital Signs: Vital Signs: Last Vital Signs Temp 97.9 F 11/28/23 08:00 Pulse 60 11/28/23 08:00 Resp 18 11/28/23 08:00 BP 162/96 H 11/28/23 08:00 Pulse Ox 96 11/28/23 08:00 O2 Del Method Nasal Cannula 11/28/23 08:00 O2 Flow Rate 2 11/28/23 08:00 BMI result Body Mass Index 34.1 Const: General: cooperative and no acute distress Chest: Chest palpation & inspection: normal inspection of the chest and no tenderness Resp: Effort & Inspection: normal respiratory effort and no respiratory distress Auscultation: diminished lung sounds Cardio: Heart sounds: S1 normal heart sound present and S2 normal heart sound present GI: Palpation (GI): Soft to palpation, nontender and No Rebound tenderness present Auscultation: normal bowel sounds Skin: General skin exam: no rashes or lesions noted Extrem: General: Yes no clubbing, cyanosis or edema Procedures Date of Service Date of Service: 11/28/23 Assessment and Plan Assessment and plan (1) Mucus plugging of bronchi: Status: Acute (2) Pneumonia: Status: Acute (3) Hypoxia: Status: Acute (4) Chronic restrictive lung disease: Status: Acute Plan continue CPT, would benefit from a percussion vest/wrap. Consider as an outpt continue abx continue mucomyst/albuterol for 24-48 hours repeat CXR in the AM, if no better consider bronchoscopy Time Spent With Patient Time: Total time managing care of this patient today ____ minutes. Progress Note: Quality Stroke Does the patient have a stroke diagnosis?: No
--- NOTE | 2023-11-28 11:17 | MHC.SL.DTX ---
Dysphagia Diet modifications: Last documented Solid diet consistencies: NPO Last documented Liquid consistency: NPO Changes made to current diet?: Yes Liquid Consistency and Strategies: Liquid Intake Recommendation: Thin Compensatory Strategies for Safe Swallow: Small Sips Compensatory Strategies for Safe Swallow(b): Sitting Upright (90 deg) Small Bites and Sips Alternate Liquids/Solids Rate of Ingestion Change Solid Food Consistency: Dietary Recommendations: Chopped/Advanced (NDD3) Additional Modifications to Solids: Recommending START diet of CHOPPED/ADVANCED SOLIDS (NDD3) and THIN LIQUIDS. MEDS WHOLE with LIQUID or PUREE, as tolerated. ASSIST with TRAY SET-UP. Reposition UPRIGHT BEFORE and AFTER MEALS at least 30 MINS. EDGING CATCHER will follow-up x 1-2 to monitor tolerance and potential for upgrade. Oral Medication Intake: NPO Strategies and Precautions to be Taken for Safe Swallow: Sitting Upright (90 deg) Small Bites and Sips Alternate Liquids/Solids Rate of Ingestion Change Supervision While Eating and/Drinking: PO with EDGING CATCHER Swallowing Recommended Treatments: Compens. Strategy Educat. Recommendation for Speech: Inpatient Speech Therapy Comment: EDGING CATCHER to repeat clinical swallow exam in the a.m. Should patient's difficulties persist, he may benefit from additional instrumental (MBSS) to further evaluate. Frequency/Duration: M-F PRN Additional Comments: Treatment: Pt failed his evaluation with EDGING CATCHER yesterday, coughing on all consistencies trialed. Today he is more alert per RN, awake and watching sports on television. When asked about his hoarse voice he reports this is a result of frequent intense cough from his illness. He tolerated administered and self-administered small spoon bites of Puree Solids with adequate oral preparation and clearance with no overt s/s of aspiration. He tolerated Thin Liquids via Ice Chip and self-administered cup sip with no overt s/s of aspiration. He is noted to take small, controlled sips independently. He is provided a Regular Solid (saltine cracker) which he prepares with mild delay and mild residue. Residue is cleared with a self-administered Thin Liquid wash with no overt s/s of aspiration. Recommending START diet of CHOPPED/ADVANCED SOLIDS (NDD3) and THIN LIQUIDS. MEDS WHOLE with LIQUID or PUREE, as tolerated. ASSIST with TRAY SET-UP. Reposition UPRIGHT BEFORE and AFTER MEALS at least 30 MINS. EDGING CATCHER will follow-up x 1-2 to monitor tolerance and potential for upgrade. Caser Up Clinican/Clinical Fellow: No Supervisory Statement: I have reviewed and agree with the student/clinical fellow's documentation: N/A Speech Language Pathologist: Shantanu Flores M.A., [facility]-EDGING CATCHER
[2023-11-28] MEDS: Dicyclomine HCl 10 MG CAPSULE PO ×3 (13:46→19:36)
[2023-11-28] MEDS: Gabapentin 100 MG CAPSULE PO (13:46)
[2023-11-28] MEDS: Baclofen 20 MG TABLET PO ×2 (13:46→17:47)
--- NOTE | 2023-11-28 15:47 | HO.OSTOMY ---
Ostomy Consult: Follow up 68yr old Male?admitted to [facility] [place] on 11/26/23 - See progress notes and H&P for detailed history.? Ostomy consult placed for Flush stoma.? Patient agreeable to assessment and photo documentation.? He is a paraplegic at baseline and wheelchair for mobility. Pouch was assessed and noted to be lifting from under the wafer. The stool was firm and appeared to be pancaking under the wafer causing it to lift. Pouch removed and in fact the stool was flat under the wafer. The pouch cut opening was assessed and was smaller than the stoma which was likely impacting the adherence and allowing the stool to get under the wafer. The patients stoma is flush to his abdomen - it is pale pink and oval. Minimal pink blanchable erythema noted immediately around the stoma this is likely related to the stool sitting in contact with his skin - MASD.. Although his stoma is flush I did not opt for a convex pouch as given his level of paralysis he does not have frequent abdominal movements and there are no creases noted. He reports he [facility] a [facility] jail and does not frequently have leaking. He was changed in to a coloplast [id number] cut to 38 oval and a Coloplast barrier ring was applied around the stoma. I will followup later in the week to ensure pouch adherence. Of note at afternoon assessment the patient hard formed stool in the pouch - the direct care nurse notified and provider aware.
[2023-11-28] MEDS: 0.9 % Sodium Chloride Flush 3 ML SYRINGE IVFLUSH ×2 (17:47→23:17)
[2023-11-28] MEDS: Warfarin Sodium 4 MG TABLET PO (17:47)
[2023-11-28] MEDS: Gabapentin 600 MG TABLET PO (19:37)
[2023-11-28] MEDS: Baclofen 20 MG TABLET 40 MG PO (19:37)
[2023-11-28] MEDS: traZODone HCL 25 MG HALFTAB 75 MG PO (19:38)
[2023-11-29] VITALS (9 sets, daily range): BP systolic 101–127; BP diastolic 61–78; PULSE 61–70; RESP 13–18; TEMP 36–36.4; O2SAT 92–98
[2023-11-29] MEDS: Piperacillin Sodium/Tazobactam 4.5 GM in 0.9 % Sodium Chloride 100 ML IV ×4 (05:12→23:40)
[2023-11-29] MEDS: Levothyroxine Sodium 125 MCG TABLET PO (05:47)
[2023-11-29 06:59] LABS: Hematocrit 32.9 % (42.0-52.0); Hemoglobin 10.4 g/dl (14.0-18.0); Mean Corpuscular HGB Conc 31.6 g/dl (31.0-36.0); Mean Corpuscular Hemoglobin 29.6 pg (27.0-33.0); Mean Corpuscular Volume 93.7 fL (80.0-98.0); Mean Platelet Volume 9.8 fL (9.4-12.4); Platelet Count 178 X10*3/uL (160-400); Red Blood Count 3.51 X10*6/uL (4.60-5.80); Red Cell Distribution Width 15.9 % (11.0-16.0)
[2023-11-29 07:10] LABS: INTERNATIONAL NORM RATIO 2.4 (0.9-1.1); Prothrombin Time 28.7 SEC (11.1-13.3)
[2023-11-29 07:13] LABS: Anion Gap 13 (12-20); Blood Urea Nitrogen 16 mg/dL (9-16); Calcium 8.3 mg/dL (8.4-10.2); Carbon Dioxide 30 mmol/L (22-29); Chloride 104 mmol/L (96-108); Estimated Glomerular Filt Rate > 60; Glucose Fasting 91 mg/dL (60-99); Potassium 3.4 mmol/L (3.3-5.1); Sodium 144 mmol/L (135-145)
[2023-11-29] MEDS: Acetylcysteine 10 % 400 MG/4 ML VIAL INHALE ×2 (08:16→19:43)
[2023-11-29] MEDS: Albuterol/Iprat 2.5/0.5MG 3 ML AMPUL.NEB INHALE ×3 (08:16→15:36)
--- NOTE | 2023-11-29 08:18 | PC.RT ---
Pt awake and coop, pep therapy post svn marilou well with good effort noted.
[2023-11-29] MEDS: Dicyclomine HCl 10 MG CAPSULE PO ×4 (08:23→20:50)
[2023-11-29] MEDS: calcitrioL 0.25 MCG CAPSULE PO (08:23)
[2023-11-29] MEDS: Gabapentin 100 MG CAPSULE PO ×2 (08:23→13:02)
[2023-11-29] MEDS: Ascorbic Acid 500 MG TABLET PO (08:25)
[2023-11-29] MEDS: Baclofen 20 MG TABLET PO ×3 (08:25→16:48)
[2023-11-29] MEDS: 0.9 % Sodium Chloride Flush 3 ML SYRINGE IVFLUSH ×3 (08:26→23:41)
[2023-11-29] MEDS: Furosemide 20 MG TABLET PO (08:26)
--- NOTE | 2023-11-29 10:12 | MHC.CLN ---
F/U DIET UPGRADED 11/27 PER [employer]OUND [employer] AIRCRAFT SUPPORT REC. DIET=REGULAR, CHOPPED. INTAKE 75-100%. PATIENT WITH STAGE III PRESSURE INJURY TO COCCYX. INCREASED NUTRITION NEEDS DUE TO PRESSURE INJURY. AGREES TO ENSURE MAX PROTEIN BID. PROVIDES 300 KCALS, 60 G PROTEIN. WEIGHT GAIN IS NOT DESIRABLE. SUPPLEMENT APPROPRIATE TO PROMOTE WOUND HEALING. FOLLOW FOR INTAKE AND SKIN INTEGRITY.
[2023-11-29] MEDS: guaiFENesin LA 600 MG TAB.ER.12H PO ×2 (10:44→20:49)
--- NOTE | 2023-11-29 12:30 | MHC.SL.SWA ---
Risk of Aspiration Due to: Medically Fragile History of Pneumonia Weak Cough Dysphasia Diet Status: UPGRADE solids Liquid Consistency and Strategies for Safe Swallow: Liquid Intake Recommendation: Thin Liquid Intake Strategies: Small Sips Solid Food Consistency: Dietary Recommendations: Regular Oral Medication Intake: Whole with Liquid Please contact the pharmacy regarding appropriate crushable or liquid drug formulations that are available whenever modified delivery is recommended. Compensatory Strategies and Precautions to be Taken for Safe Swallow: Sitting Upright (90 deg) Small Bites and Sips Alternate Liquids/Solids Rate of Ingestion Change Supervision While Eating and Drinking for Safe Swallow: ASSIST w/ tray set-up Swallowing Recommended Treatments: Compens. Strategy Educat. Recommendation for Speech: Inpatient Speech Therapy Comment:Recommending UPGRADE to REGULAR SOLIDS. Continue with THIN LIQUIDS and MEDS WHOLE with LIQUID. Pt continues to require ASSISTANCE with TRAY SET-UP. Continue to position UPRIGHT BEFORE and AFTER MEALS at least 30 MINS. NURSING CENTER TUTOR will follow-up x 1-2 to monitor tolerance Frequency/Duration: M-F PRN Cross Tie Cutter Clinican/Clinical Fellow: No Supervisory Statement: I have reviewed and agree with the student/clinical fellow's documentation: N/A Speech Language Pathologist: Ene Luevano M.A., [facility]-NURSING CENTER TUTOR
--- NOTE | 2023-11-29 13:20 | MHC.CM.PN ---
spoke with gio cameron for [facility] who explains that grouphome can take continous 02 not prn and can not due percussion vests
--- NOTE | 2023-11-29 13:23 | HO.PM.IMPN ---
Subjective Subjective Date of Service: 11/29/23 Interval History: seen and evaluated this morning O2 dropped to 80s on RA tolerating diet well Review of Systems Review of Systems: Yes all other systems are reviewed and are negative Physical Exam Vital Signs: Vital Signs: Last Vital Signs Temp 97.6 F 11/29/23 07:07 Pulse 61 11/29/23 11:17 Resp 18 11/29/23 11:17 BP 115/72 11/29/23 08:26 Pulse Ox 92 11/29/23 07:07 O2 Del Method Nasal Cannula 11/29/23 07:07 O2 Flow Rate 1 11/29/23 07:07 BMI result Body Mass Index 34.1 Const: Other: Constitutional : Awake, interactive, not in distress Neck : Normal inspection, Supple Cardiovascular : RRR, no JVP, no lower extremity edema Respiratory : good bilateral air entry, basal crackles, expiratory rhonchi, on O2 supplement Gastrointestinal: soft, lax, Normal bowel sounds, Non tender Skin : Warm, Dry Neurological : Alert & oriented x3, No focal deficit Objective Data Active Medications Acetaminophen (Acetaminophen 325 Mg Tablet) 650 mg PO Q6H PRN PRN Reason: Pain, Mild (Pain Scale 1-3), fever or headache Acetylcysteine (Acetylcysteine 10 % 400 Mg/4 Ml Vial) 400 mg INHALE RBID [facility] Last Admin: 11/29/23 08:16 Dose: 400 mg Documented By: LAURA Albuterol/Ipratropium (Albuterol/Iprat 2.5/0.5mg 3 Ml Ampul.Neb) 3 ml INHALE RQ4H WHILE AWAKE [facility] Last Admin: 11/29/23 11:16 Dose: 3 ml Documented By: LAURA Ascorbic Acid (Ascorbic Acid 500 Mg Tablet) 500 mg PO DAILY [facility] Last Admin: 11/29/23 08:25 Dose: 500 mg Documented By: HUGH Baclofen (Baclofen 20 Mg Tablet) 40 mg PO BEDTIME [facility] Last Admin: 11/28/23 19:37 Dose: 40 mg Documented By: JOSEPH Baclofen (Baclofen 20 Mg Tablet) 20 mg PO TID@0900,1300,1700 [facility] Last Admin: 11/29/23 13:02 Dose: 20 mg Documented By: HUGH Benzocaine (Throat Lozenge, Medicated Lozenge) 1 lozenge MUCOUS MEM Q2H PRN PRN Reason: Cough Last Admin: 11/28/23 00:39 Dose: 1 lozenge Documented By: JOSEPH Calcitriol (Calcitriol 0.25 Mcg Capsule) 0.25 mcg PO DAILY [facility] Last Admin: 11/29/23 08:23 Dose: 0.25 mcg Documented By: HUGH Calcium Carbonate (Calcium Carbonate 750 Mg Tab.Chew) 750 mg PO Q4H PRN PRN Reason: Heartburn Dicyclomine HCl (Dicyclomine Hcl 10 Mg Capsule) 10 mg PO QID [facility] Last Admin: 11/29/23 13:02 Dose: 10 mg Documented By: HUGH Furosemide (Furosemide 20 Mg Tablet) 20 mg PO DAILY [facility]; Protocol Last Admin: 11/29/23 08:26 Dose: 20 mg Documented By: HUGH Gabapentin (Gabapentin 600 Mg Tablet) 600 mg PO BEDTIME [facility] Last Admin: 11/28/23 19:37 Dose: 600 mg Documented By: JOSEPH Gabapentin (Gabapentin 100 Mg Capsule) 100 mg PO BID@0800,1400 [facility] Last Admin: 11/29/23 13:02 Dose: 100 mg Documented By: HUGH Guaifenesin (Guaifenesin 200 Mg/10 Ml 10 Ml Liquid) 10 ml PO Q4H PRN PRN Reason: Cough Last Admin: 11/27/23 10:29 Dose: 10 ml Documented By: TANIKA Guaifenesin (Guaifenesin La 600 Mg Tab.Er.12h) 600 mg PO BID [facility] Last Admin: 11/29/23 10:44 Dose: 600 mg Documented By: HUGH Piperacillin Sod/Tazobactam (Sod 4.5 gm/ Sodium Chloride) 100 mls @ 200 mls/hr IV Q6H [facility] Last Admin: 11/29/23 13:02 Dose: 200 mls/hr Documented By: HUGH Levothyroxine Sodium (Levothyroxine Sodium 125 Mcg Tablet) 125 mcg PO DAILY@0630 [facility] Last Admin: 11/29/23 05:47 Dose: 125 mcg Documented By: JOSEPH Magnesium Hydroxide (Milk Of Magnesia 30 Ml Oral.Susp) 30 ml PO DAILY PRN PRN Reason: Constipation Melatonin (Melatonin 3 Mg Tablet) 6 mg PO BEDTIME PRN PRN Reason: Insomnia Midodrine (Midodrine Hcl 10 Mg Tablet) 10 mg PO TID PRN PRN Reason: SBP <110 Sodium Chloride (0.9 % Sodium Chloride Flush 3 Ml Syringe) 3 ml IVFLUSH QSHIFT [facility] Last Admin: 11/29/23 08:26 Dose: 3 ml Documented By: HUGH Trazodone HCl (Trazodone Hcl 25 Mg Halftab) 75 mg PO BEDTIME [facility] Last Admin: 11/28/23 19:38 Dose: 75 mg Documented By: JOSEPH Warfarin Sodium (Warfarin Sodium 4 Mg Tablet) 4 mg PO MoTuWeFrSa@1800 [facility] Last Admin: 11/28/23 17:47 Dose: 4 mg Documented By: TANIKA Warfarin Sodium (Warfarin Sodium 3 Mg Tablet) 3 mg PO SuTh@1800 [facility] Last Admin: 11/26/23 20:24 Dose: 3 mg Documented By: JACEK Labs 11/29/23 05:35 11/29/23 05:35 Labs: Laboratory Results - last 24 hr 11/29/23 05:35 MCV 93.7 MCH 29.6 MCHC 31.6 RDW 15.9 Plt Count 178 MPV 9.8 Absolute Nucleated RBC 0.000 Nucleated RBC % (auto) 0.0 PT 28.7 H INR 2.4 H Anion Gap 13 Estim Creat Clear Calc 141.0 Estimated GFR > 60 Fasting Glucose 91 Calcium 8.3 L Microbiology Microbiology Results: Microbiology 11/26/23 12:12 Blood Culture - Preliminary Blood - Venous No growth after 48 hours. 11/26/23 11:49 Blood Culture - Preliminary Blood - Venous No growth after 48 hours. Assessment and Plan (1) Mucus plugging of bronchi: Status: Acute (2) Pneumonia: Status: Acute (3) Hypoxia: Status: Acute Plan 68M PMH tetraplegia due to lesion at C5-C7, complicated by neurogenic bladder status post suprapubic catheter, sacral decubitus ulcer, DVT with IVC filter, paroxysmal atrial fibrillation, hypothyroid presented with cough and shortness of breath Acute hypoxic respiratory failure due to pneumonia with concern for aspiration/dysphagia improving slowly continue IV Zosyn, pulm appreciated - continue pulm toilet, consider percussion vest DIGITAL ADVERTISING ANALYST following wean O2 as tolerated, now down to 2 L Incentive spirometry DuPenny, pulmonary toilet History of DVT Continue Coumadin, monitor INR Paroxysmal atrial fibrillation Continue Coumadin Tetraplegia with neurogenic bladder, suprapubic catheter with pyuria culture negative Hypothyroid Continue levothyroxine Full code reason for continued hospitalization:hypoxia needs to be taken off O2 before going back to longterm Quality Stroke Does the patient have a stroke diagnosis?: No VTE Prior VTE?: Yes VTE Risk Level:: Medical - moderate - high VTE Device Contraindication: Treatment Not Indicated VTE Drug Contraindication: N/A - Med Ordered
--- NOTE | 2023-11-29 15:50 | HO.WOUND ---
Wound Consult: Follow up 68yr old Male? admitted to [facility] on 11/26/23 - See progress notes and H&P for detailed history.? Wound consult placed by direct care nurse for Left heel Wound.? Patient agreeable to assessment and photo documentation.? He is a paraplegic at baseline and wheelchair for mobility. Treats at the outpt wound clinic and has previous injury to the left heel documented as Stage 3 Pressure injury. Is it noted he has previously had a full thickness pressure injury to the right ischium as well - last assessment was noted to be intact at this time - will monitor for reopening and prevention in place with wedges, specialty bed and off loading. Ostomy pouch assessed and remains intact and adhered to abdomen no leaking noted. Left Heel Etiology: ?Resolving Stage 3 Pressure Injury ?Present on Admission Wound Bed: dry lifting epidermal layers with dark purple tissue under epidermal layer previously reported as Stage 3 Pressure injury Drainage / Odor: None Edges: ? irregular Vivien wound: dry liftinhg epidermal layers, pink intact purple tissue noted Pain: denies feeling Goals of Treatment: ? Heel protector boots in place - no dressing needed at this time as tissue is intact Previous assessment details below: Patient reports he is in a detention and spending most of his day sitting in his wheelchair, He reports he does have a specialty cushion but since he has an ostomy and suprapubic cath he is only cleaned once a day. He was educated his buttock coccyx and posterior thighs and scrotum shows significant signs of chronic MASD (Moisture Associated Skin Damage). It is unclear where the moisture is originating from suspect his penis or leaking from the suprapubic cath site. Coccyx Etiology: ?Stage 3 Pressure Injury ?Present on Admission Measurements: 1.5cm x 0.4cm x 0.2cm Wound Bed: moist marbled wound bed with pink and yellow slough Drainage / Odor: serosang drainage noted Edges: ? Linear and attached Vivien wound: Significant MASD noted friction noted to posterior thighs and buttock as well - No Induration, Fluctuance or Warmth noted Pain: denies feeling Goals of Treatment: ? Triad to allow for moist wound healing and to protect from friction and moisture Buttock posterior thighs, scrotum and bilateral groin - MASD (Moisture Associated Skin Damage) - Recommendations: 1. Turn and Reposition every 2 hours and as needed for patient comfort.? Use pillows or wedges to support off loading positions. Use wedges for off loading. 2. Off Load all bony prominences with use of pillows and heel boots if needed.? Apply Preventative foams where needed. ? 3. Monitor for incontinence and moisture control, use barrier creams when needed for prevention and treatment. 4. Provide adequate and supplemental nutrition.? 5. Order low air loss mattress - Specialty mattress from [facility] - Pulsate extra long - Not the [place]. 6. When applicable maintain blood glucose levels per Providers order. 7. Coccyx, Buttock, Thigh, scrotum and groin - Off Load Pressure - Cleanse with PH balance spray or wipes, pat dry. ?Apply thin layer of Triad to wound bed - only pat and dab no scrub and rub when soiling occurs. Reapply thin layer PRN after each episode of incontinence. 8. Bilateral Heels - Heel elevation off of bed surface with heel protector boots. Assess heels Q shift. Re-consult wound care Nurse for wound deterioration or wound changes.
--- NOTE | 2023-11-29 16:19 | PC.NURSE ---
Pt c/o leaking at urethra. Suprapubic cath tubing appears to have thick orange sludge in tube and at 15:00 50ml of urine was recorded for shift... MD Newton made aware, suprapubic flushed per MD. Moderate amount of sediment irrigated from tubing. Suprapubic currently patent and draining yellow concentrated urine. Specimen sent to lab per MD orders.
[2023-11-29 16:32] LABS: Color Urine Yellow; Glucose Urine UA Negative (Negative); Leukocyte Esterase Urine Moderate (2+) (Negative); Nitrite Urine Negative (Negative); PH 5.5 (5.0-9.0); Specific Gravity - Urine >= 1.030 (1.005-1.025); UMIC TRIGGER UACC YES; Urine Blood Large (3+) (Negative); Urine Ketones Trace mg/dL (Negative); Urine Protein 30 (1+) mg/dL (Neg-Trace)
[2023-11-29 16:45] LABS: Appearance Urine Hazy
[2023-11-29 16:46] LABS: Bacteria Urine None Seen (None Seen); Hyaline Casts Urine 0-2 /LPF (0-2); RBC Urine >20 /HPF (0-2); UACC Culture Trigger YES; WBC Urine 21-50 /HPF (0-5)
[2023-11-29] MEDS: Warfarin Sodium 4 MG TABLET PO (17:46)
[2023-11-29] MEDS: Gabapentin 600 MG TABLET PO (20:49)
[2023-11-29] MEDS: Baclofen 20 MG TABLET 40 MG PO (20:49)
[2023-11-29] MEDS: traZODone HCL 25 MG HALFTAB 75 MG PO (20:49)
[2023-11-30] VITALS (8 sets, daily range): BP systolic 100–111; BP diastolic 53–69; PULSE 60–76; RESP 16–20; TEMP 36.1–36.9; O2SAT 92–95
[2023-11-30] MEDS: Levothyroxine Sodium 125 MCG TABLET PO (06:16)
[2023-11-30] MEDS: Piperacillin Sodium/Tazobactam 4.5 GM in 0.9 % Sodium Chloride 100 ML IV ×4 (06:16→23:34)
[2023-11-30 06:56] LABS: INTERNATIONAL NORM RATIO 2.2 (0.9-1.1); Prothrombin Time 27.1 SEC (11.1-13.3)
[2023-11-30] MEDS: Albuterol/Iprat 2.5/0.5MG 3 ML AMPUL.NEB INHALE ×3 (07:44→19:34)
[2023-11-30] MEDS: Acetylcysteine 10 % 400 MG/4 ML VIAL INHALE ×2 (07:45→19:34)
[2023-11-30] MEDS: Furosemide 20 MG/2 ML VIAL IVPUSH (08:00)
[2023-11-30] MEDS: Ascorbic Acid 500 MG TABLET PO (08:01)
[2023-11-30] MEDS: Dicyclomine HCl 10 MG CAPSULE PO ×4 (08:01→20:34)
[2023-11-30] MEDS: Baclofen 20 MG TABLET PO ×3 (08:01→17:06)
[2023-11-30] MEDS: 0.9 % Sodium Chloride Flush 3 ML SYRINGE IVFLUSH ×3 (08:01→20:34)
[2023-11-30] MEDS: Gabapentin 100 MG CAPSULE PO ×2 (08:01→13:16)
[2023-11-30] MEDS: guaiFENesin LA 600 MG TAB.ER.12H PO ×2 (08:01→20:34)
[2023-11-30] MEDS: calcitrioL 0.25 MCG CAPSULE PO (08:01)
--- NOTE | 2023-11-30 12:43 | MHC.CM.PN ---
Addendum entered by Trish Fournier 11/30/23 15:38: TYRA SPOKE TO BO [phone] AND INFORMED HIM PT WOULD NOT BE ABLE TO DC TODAY AND HAD A PROCEDURE PLANNED FOR TOMORROW AT 1300 BO SAYS PT CAN DC HOME TOMORROW EVEN IF IT IS IN THE EVENING HE WILL NEED BLS TRANSPORT Original Note: TYRA SPOKE TO SIMEON RN, BO, WHO REPORTS THEY CAN TAKE PT BACK TODAY IF HE IS MEDICALLY CLEARED HE PROVIDED THE MED FORMS FOR MD TO SIGN HE SAID PT WOULD NEED BLS TRANSPORT HIS W/C IS NOT HERE AND NOT CHARGED
--- NOTE | 2023-11-30 13:15 | HO.PM.IMPN ---
Subjective Subjective Date of Service: 11/30/23 Interval History: seen and evaluated this morning O2 dropped to 80s on RA while tryig to wean him off O2 tolerating diet well Review of Systems Review of Systems: Yes all other systems are reviewed and are negative Physical Exam Vital Signs: Vital Signs: Last Vital Signs Temp 96.9 F 11/30/23 07:15 Pulse 76 11/30/23 11:25 Resp 16 11/30/23 11:25 BP 111/53 L 11/30/23 08:00 Pulse Ox 92 11/30/23 07:15 O2 Del Method Nasal Cannula 11/30/23 07:15 O2 Flow Rate 1 11/30/23 07:15 BMI result Body Mass Index 34.1 Const: Other: Constitutional : Awake, interactive, not in distress Neck : Normal inspection, Supple Cardiovascular : RRR, no JVP, no lower extremity edema Respiratory : good bilateral air entry, basal crackles, expiratory rhonchi, on O2 supplement Gastrointestinal: soft, lax, Normal bowel sounds, Non tender Skin : Warm, Dry Neurological : Alert & oriented x3, No focal deficit Objective Data Active Medications Acetaminophen (Acetaminophen 325 Mg Tablet) 650 mg PO Q6H PRN PRN Reason: Pain, Mild (Pain Scale 1-3), fever or headache Acetylcysteine (Acetylcysteine 10 % 400 Mg/4 Ml Vial) 400 mg INHALE RBID [facility] Last Admin: 11/30/23 07:45 Dose: 400 mg Documented By: LAURA Albuterol/Ipratropium (Albuterol/Iprat 2.5/0.5mg 3 Ml Ampul.Neb) 3 ml INHALE RQ4H WHILE AWAKE [facility] Last Admin: 11/30/23 11:24 Dose: 3 ml Documented By: YUSRA Ascorbic Acid (Ascorbic Acid 500 Mg Tablet) 500 mg PO DAILY [facility] Last Admin: 11/30/23 08:01 Dose: 500 mg Documented By: FESTUS Baclofen (Baclofen 20 Mg Tablet) 40 mg PO BEDTIME [facility] Last Admin: 11/29/23 20:49 Dose: 40 mg Documented By: JUDI Baclofen (Baclofen 20 Mg Tablet) 20 mg PO TID@0900,1300,1700 [facility] Last Admin: 11/30/23 08:01 Dose: 20 mg Documented By: FESTUS Benzocaine (Throat Lozenge, Medicated Lozenge) 1 lozenge MUCOUS MEM Q2H PRN PRN Reason: Cough Last Admin: 11/28/23 00:39 Dose: 1 lozenge Documented By: JOSEPH Calcitriol (Calcitriol 0.25 Mcg Capsule) 0.25 mcg PO DAILY [facility] Last Admin: 11/30/23 08:01 Dose: 0.25 mcg Documented By: FESTUS Calcium Carbonate (Calcium Carbonate 750 Mg Tab.Chew) 750 mg PO Q4H PRN PRN Reason: Heartburn Dicyclomine HCl (Dicyclomine Hcl 10 Mg Capsule) 10 mg PO QID [facility] Last Admin: 11/30/23 08:01 Dose: 10 mg Documented By: FESTUS Furosemide (Furosemide 20 Mg Tablet) 20 mg PO DAILY [facility]; Protocol Last Admin: 11/30/23 08:01 Dose: Not Given Documented By: FESTUS Non-Admin Reason: Given IV per MD order Gabapentin (Gabapentin 600 Mg Tablet) 600 mg PO BEDTIME [facility] Last Admin: 11/29/23 20:49 Dose: 600 mg Documented By: JUDI Gabapentin (Gabapentin 100 Mg Capsule) 100 mg PO BID@0800,1400 [facility] Last Admin: 11/30/23 08:01 Dose: 100 mg Documented By: FESTUS Guaifenesin (Guaifenesin 200 Mg/10 Ml 10 Ml Liquid) 10 ml PO Q4H PRN PRN Reason: Cough Last Admin: 11/27/23 10:29 Dose: 10 ml Documented By: TANIKA Guaifenesin (Guaifenesin La 600 Mg Tab.Er.12h) 600 mg PO BID [facility] Last Admin: 11/30/23 08:01 Dose: 600 mg Documented By: FESTUS Piperacillin Sod/Tazobactam (Sod 4.5 gm/ Sodium Chloride) 100 mls @ 200 mls/hr IV Q6H [facility] Last Infusion: 11/30/23 12:40 Dose: Infused Documented By: FESTUS Levothyroxine Sodium (Levothyroxine Sodium 125 Mcg Tablet) 125 mcg PO DAILY@0630 [facility] Last Admin: 11/30/23 06:16 Dose: 125 mcg Documented By: JUDI Magnesium Hydroxide (Milk Of Magnesia 30 Ml Oral.Susp) 30 ml PO DAILY PRN PRN Reason: Constipation Melatonin (Melatonin 3 Mg Tablet) 6 mg PO BEDTIME PRN PRN Reason: Insomnia Midodrine (Midodrine Hcl 10 Mg Tablet) 10 mg PO TID PRN PRN Reason: SBP <110 Sodium Chloride (0.9 % Sodium Chloride Flush 3 Ml Syringe) 3 ml IVFLUSH QSHIFT [facility] Last Admin: 11/30/23 08:01 Dose: 3 ml Documented By: FESTUS Trazodone HCl (Trazodone Hcl 25 Mg Halftab) 75 mg PO BEDTIME [facility] Last Admin: 11/29/23 20:49 Dose: 75 mg Documented By: JUDI Warfarin Sodium (Warfarin Sodium 4 Mg Tablet) 4 mg PO MoTuWeFrSa@1800 [facility] Last Admin: 11/29/23 17:46 Dose: 4 mg Documented By: HUGH Warfarin Sodium (Warfarin Sodium 3 Mg Tablet) 3 mg PO SuTh@1800 [facility] Last Admin: 11/26/23 20:24 Dose: 3 mg Documented By: JACEK Labs 11/29/23 05:35 11/29/23 05:35 Labs: Laboratory Results - last 24 hr 11/29/23 11/30/23 16:17 06:38 PT 27.1 H INR 2.2 H Urine Color Yellow Urine Appearance Hazy Urine pH 5.5 Ur Specific [place] >= 1.030 H Urine Protein 30 (1+) H Urine Glucose (UA) Negative Urine Ketones Trace Urine Blood Large (3+) H Urine Nitrite Negative Ur Leukocyte Esterase Moderate (2+) H Urine RBC >20 H Urine WBC 21-50 H Ur Squamous Epith Cells 3-5 Urine Bacteria None Seen Hyaline Casts 0-2 Microbiology Microbiology Results: Microbiology 11/29/23 Unknown Urine Culture - Preliminary Urine Other - Suprapubic No growth to date. 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 following 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 O2 as tolerated, now down to 2 L, Drops to 80s on RA Incentive spirometry DuoNebs, pulmonary toilet History of DVT hold Coumadin, monitor INR, goal <1.7 tomorrow Paroxysmal atrial fibrillation Continue Coumadin Tetraplegia with neurogenic bladder, suprapubic catheter with pyuria culture negative Hypothyroid Continue levothyroxine Full code reason for continued hospitalization:hypoxia needs to be taken off O2 before going back to [facility] Quality Stroke Does the patient have a stroke diagnosis?: No VTE Prior VTE?: Yes VTE Risk Level:: Medical - moderate - high VTE Device Contraindication: Treatment Not Indicated VTE Drug Contraindication: N/A - Med Ordered
[2023-11-30] MEDS: Phytonadione (Vit K1) Oral 10 MG/ML AMPUL 2.5 MG PO (13:17)
--- NOTE | 2023-11-30 13:53 | PM.PNPUL ---
Subjective Subjective Date of Service: 11/30/23 Interval history: The patient was seen on exam. Still having some difficulty clearing his secretions. Chest x-ray is done demonstrating still persistent bilateral bibasilar opacities. He has been on full course therapy for his chest congestion. Only partially helpful. Will plan for bronchoscopy for therapeutic cleaning. The patient does take Coumadin would have to be reversed. INR 2.2. Objective Data Labs 11/29/23 05:35 11/29/23 05:35 Labs: Laboratory Results - last 24 hr 11/29/23 11/30/23 16:17 06:38 PT 27.1 H INR 2.2 H Urine Color Yellow Urine Appearance Hazy Urine pH 5.5 Ur Specific [place] >= 1.030 H Urine Protein 30 (1+) H Urine Glucose (UA) Negative Urine Ketones Trace Urine Blood Large (3+) H Urine Nitrite Negative Ur Leukocyte Esterase Moderate (2+) H Urine RBC >20 H Urine WBC 21-50 H Ur Squamous Epith Cells 3-5 Urine Bacteria None Seen Hyaline Casts 0-2 Microbiology Microbiology Results: Microbiology 11/29/23 Unknown Urine Other - Suprapubic Urine Culture - Preliminary No growth to date. 11/26/23 12:12 Blood - Venous Blood Culture - Preliminary No growth after 48 hours. 11/26/23 11:49 Blood - Venous Blood Culture - Preliminary No growth after 48 hours. 11/26/23 Unknown Urine Catheterized - [place] Catheter Urine Culture - Final Review of Systems Constitutional: Denies fever(s) and Reports weakness Eyes: Reports no additional eye complaints Reports system reviewed and no additional complaints, except as documented and Reports dysphagia Cardiovascular: Denies chest pain and Reports dyspnea Respiratory: Reports change in phlegm color, Reports chest congestion, Reports cough and Reports dyspnea Gastrointestinal: Reports dysphagia Genitourinary: Reports as per HPI Musculoskeletal: Reports as per HPI and Reports abnormal gait Reports Neuro-related abnormal movements, Reports abnormal gait and Reports weakness Hematologic/Lymphatic: Reports as per HPI Physical Exam Vital Signs: Vital Signs: Last Vital Signs Temp 96.9 F 11/30/23 07:15 Pulse 76 11/30/23 11:25 Resp 16 11/30/23 11:25 BP 111/53 L 11/30/23 08:00 Pulse Ox 92 11/30/23 07:15 O2 Del Method Nasal Cannula 11/30/23 07:15 O2 Flow Rate 1 11/30/23 07:15 BMI result Body Mass Index 34.1 Const: General: cooperative and no acute distress Chest: Chest palpation & inspection: normal inspection of the chest and no tenderness Resp: Effort & Inspection: normal respiratory effort and no respiratory distress Auscultation: diminished lung sounds Cardio: Heart sounds: S1 normal heart sound present and S2 normal heart sound present GI: Palpation (GI): Soft to palpation, nontender and No Rebound tenderness present Auscultation: normal bowel sounds Skin: General skin exam: no rashes or lesions noted Extrem: General: Yes no clubbing, cyanosis or edema Procedures Date of Service Date of Service: 11/30/23 Assessment and Plan Assessment and plan (1) Mucus plugging of bronchi: Status: Acute (2) Pneumonia: Status: Acute (3) Hypoxia: Status: Acute (4) Chronic restrictive lung disease: Status: Acute Plan continue CPT, would benefit from a percussion vest/wrap or cough assist. Consider as an outpt continue abx continue mucomyst/albuterol for 24-48 hours plan for bronchoscpoy, would be ok to perform with an INR 1.7 or less Time Spent With Patient Time: Total time managing care of this patient today ____ minutes. Progress Note: Quality Stroke Does the patient have a stroke diagnosis?: No
--- NOTE | 2023-11-30 15:19 | MHC.SL.SWA ---
Speech Pathologist Impression: Risk of Aspiration Due to: Medically Fragile History of Pneumonia Weak Cough Dysphasia Diet Status: Recommending continue REGULAR SOLIDS with THIN LIQUIDS and MEDS WHOLE with LIQUID. Pt continues to require ASSISTANCE with TRAY SET-UP. Continue to position UPRIGHT BEFORE and AFTER MEALS at least 30 MINS. Liquid Consistency and Strategies for Safe Swallow: Liquid Intake Recommendation: Thin Liquid Intake Strategies: Small Sips Solid Food Consistency: Dietary Recommendations: Regular Additional Modifications to Solid Foods: Encourage small bites and sips, slower rate of ingestion. Oral Medication Intake: Whole with Liquid Please contact the pharmacy regarding appropriate crushable or liquid drug formulations that are available whenever modified delivery is recommended. Compensatory Strategies and Precautions to be Taken for Safe Swallow: Sitting Upright (90 deg) Small Bites and Sips Alternate Liquids/Solids Rate of Ingestion Change Supervision While Eating and Drinking for Safe Swallow: Total Supervision (1:1) Foods to Avoid: Swallowing Recommended Treatments: Compens. Strategy Educat. Recommendation for Speech: Inpatient Speech Therapy Comment: Patient advanced yesterday to baseline diet of regular with thin liquids. Patient seen twice today at meals to evaluate toleration, at both meeting, patient had finished meals. At Breakfast, patient reported no difficulty with the meal and satisfaction with the diet. At lunch, patient still had tray present in front of him, with evidence he had consumed most items, still had nutritional shake and some drinks available. Patient reported again no difficulty with the meal and satisfaction with the diet. RETAIL LEASING AGENT gave patient shake with straw, which he then took sips of, evidencing no difficulty on swallow (all wfl). Patient is on least restrictive, baseline diet of Regular with Thin liquids, pills whole with liquid and tolerating well. Recommend patient continue on this diet at next level of care. D/C Speech as treatment is completed. Frequency/Duration: M-F PRN Date Range for Service Req: Timeline to reassess: Electrician Outside Clinican/Clinical Fellow: No Supervisory Statement: I have reviewed and agree with the student/clinical fellow's documentation: N/A Speech Language Pathologist: Keena Cooper M.A., [facility]-RETAIL LEASING AGENT
[2023-11-30] MEDS: traZODone HCL 25 MG HALFTAB 75 MG PO (20:34)
[2023-11-30] MEDS: Gabapentin 600 MG TABLET PO (20:34)
[2023-11-30] MEDS: Baclofen 20 MG TABLET 40 MG PO (20:34)
[2023-12-01] VITALS (15 sets, daily range): BP systolic 92–128; BP diastolic 47–87; PULSE 59–104; RESP 16–20; TEMP 36.1–36.7; O2SAT 89–98
[2023-12-01] MEDS: Levothyroxine Sodium 125 MCG TABLET PO (05:38)
[2023-12-01] MEDS: Piperacillin Sodium/Tazobactam 4.5 GM in 0.9 % Sodium Chloride 100 ML IV ×2 (05:38→11:14)
[2023-12-01 07:02] LABS: INTERNATIONAL NORM RATIO 1.7 (0.9-1.1); Prothrombin Time 20.9 SEC (11.1-13.3)
[2023-12-01] MEDS: Acetylcysteine 10 % 400 MG/4 ML VIAL INHALE ×2 (07:23→20:15)
[2023-12-01] MEDS: Albuterol/Iprat 2.5/0.5MG 3 ML AMPUL.NEB INHALE ×3 (07:23→20:15)
--- NOTE | 2023-12-01 10:01 | MHC.SHP ---
Pre-Procedural Eval Section A - 24 Hr Update-Section A only Date of Service: 12/01/23 The patient is an INPATIENT: Yes Section B - Complete if H&P > 30 days Chief Complaint: Pna Allergies: Allergies Allergy/AdvReac Type Severity Reaction Status Date / Time dicloxacillin [From DYNAPEN] Allergy Unknown UNKNOWN Verified 11/26/23 11:21 ofloxacin [From FLOXIN] AdvReac Intermediate UPSET Verified 11/26/23 11:21 STOMACH penicillin V AdvReac Unknown Abdominal Verified 11/26/23 11:21 Pain Plan I have reviewed the history and physical and performed a pertinent physical examination on my patient. No changes have occurred unless specified. Time Spent With Patient Time: Total time managing care of this patient today ____ minutes.
--- NOTE | 2023-12-01 10:15 | HO.WOUND ---
Wound Consult: Follow up 68yr old Male? admitted to [facility] on 11/26/23 - See progress notes and H&P for detailed history.? Wound consult follow up.? Patient agreeable to assessment and photo documentation.? He is a paraplegic at baseline and wheelchair for mobility. Treats at the outpt wound clinic and has previous injury to the left heel documented as Stage 3 Pressure injury. Is it noted he has previously had a full thickness pressure injury to the right ischium as well - last assessment was noted to be intact at this time - will monitor for reopening and prevention in place with wedges in use for off loading, specialty bed and and heel protectors in place for off loading. Ostomy pouch assessed and remains intact and adhered to abdomen no leaking noted. Stool continues to be formed at todays assessment. No new topical recommendations needed at this time. Left Heel Etiology: ?Resolving Stage 3 Pressure Injury ?Present on Admission Goals of Treatment: ? Heel protector boots in place - no dressing needed at this time as tissue is intact Previous assessment details below: Patient reports he is in a senior living and spending most of his day sitting in his wheelchair, He reports he does have a specialty cushion but since he has an ostomy and suprapubic cath he is only cleaned once a day. He was educated his buttock coccyx and posterior thighs and scrotum shows significant signs of chronic MASD (Moisture Associated Skin Damage). It is unclear where the moisture is originating from suspect his penis or leaking from the suprapubic cath site. Coccyx Etiology: ?Stage 3 Pressure Injury ?Present on Admission Goals of Treatment: ? Triad to allow for moist wound healing and to protect from friction and moisture Buttock posterior thighs, scrotum and bilateral groin - MASD (Moisture Associated Skin Damage) - Triad to protect from moisture and friction. Recommendations: 1. Turn and Reposition every 2 hours and as needed for patient comfort.? Use pillows or wedges to support off loading positions. Use wedges for off loading. 2. Off Load all bony prominences with use of pillows and heel boots if needed.? Apply Preventative foams where needed. ? 3. Monitor for incontinence and moisture control, use barrier creams when needed for prevention and treatment. 4. Provide adequate and supplemental nutrition.? 5. Order low air loss mattress - Specialty mattress from [employer] - Pulsate extra long - Not the Big Turn. 6. When applicable maintain blood glucose levels per Providers order. 7. Coccyx, Buttock, Thigh, scrotum and groin - Off Load Pressure - Cleanse with PH balance spray or wipes, pat dry. ?Apply thin layer of Triad to wound bed - only pat and dab no scrub and rub when soiling occurs. Reapply thin layer PRN after each episode of incontinence. 8. Bilateral Heels - Heel elevation off of bed surface with heel protector boots. Assess heels Q shift. Re-consult wound care Nurse for wound deterioration or wound changes.
--- NOTE | 2023-12-01 10:44 | MHC.CM.PN ---
EMR REVIEWED, PER HOSPITALIST PLAN FOR BRONCHOSCOPY TODAY, IF PT DOING WELL AFTER PROCEDURE PT WILL DC BACK TO , HOSPITALIST HAS PHYSICIAN ORDERS TO SIGN AND CM CONTACTED WM RN [phone] TO DISCUSS PLAN AND SHE IS AGREEABLE TO DC LATER TODAY AND ASKS CM TO CONTACT BO RN [phone] ONCE FINAL PLAN IS KNOWN, PT WILL NEED [place] FOR BLS TRANSPORT.
--- NOTE | 2023-12-01 11:52 | MHC.CLN ---
F/U CURRENTLY NPO FOR BRONCHOSCOPY TODAY. DIET UPGRADED 11/28 PER [employer] TO [employer]ULAR [employer]. HAD BEEN TOLERATING DIET AND EATING WELL. PATIENT WITH STAGE III PRESSURE INJURY TO COCCYX AND TO LEFT HEEL. INCREASED NUTRITION NEEDS DUE TO PRESSURE INJURIES. CONTINUE ENSURE MAX PROTEIN BID WHEN ABLE. PROVIDES 300 KCALS, 60 G PROTEIN. FOLLOW FOR INTAKE AND SKIN INTEGRITY.
--- NOTE | 2023-12-01 13:01 | PC.NURSE ---
excoriated areas noted to bilateral buttocks and upper thighs noted to have cream on areas no dressings/foam pads. patient reports areas are being cared for on floor. patient repositioned for comfort.
--- NOTE | 2023-12-01 13:32 | P.CONAN_ITS ---
FORM[facility]LY [facility] Active Problems Active Problems: All Active Problems Chronic restrictive lung disease (Acute) Mucus plugging of bronchi (Acute) Pneumonia (Acute) Hypoxia (Acute) Chronic pain syndrome (Acute) Rotator cuff tear, right (Acute) Osteoarthritis of right shoulder due to rotator cuff injury (Acute) Osteoarthritis of right shoulder (Acute) Quadriplegia, C5-C7 incomplete (Acute) Suprapubic catheter dysfunction (Acute) Chronic osteomyelitis with draining sinus, other site (Acute) Spinal cord injury (Acute) Urinary tract infection (Acute) Acute confusion (Acute) Past Medical History Medical History Chronic restrictive lung disease Pneumonia Urine retention Irreducible left inguinal hernia Autonomic dysfunction Hypothyroidism Hernia Atrial fibrillation Spasms of the hands or feet Spinal cord injury Family History Family History Sister Diabetes mellitus Family history of problems with anesthesia: No Surgical History Surgical History S/P tendon repair H/O hemorrhoidectomy S/P IVC filter H/O hernia repair H/O thyroidectomy History of Problems with Anesthesia: Yes Social History Social History Household Members: Other Household Members Other:: penitentiary Housing: House Housing Other:: [facility] in [place] Do you presently have visiting nurse or other home services: No Alcohol intake: former Comment: low extremity paralysis Patient Tobacco Use Status: Never used Tobacco Advance Directives Date on File: 01/09/23 service: No Meds Allergies Allergy/AdvReac Type Severity Reaction Status Date / Time dicloxacillin [From DYNAPEN] Allergy Unknown UNKNOWN Verified 12/01/23 12:17 ofloxacin [From FLOXIN] AdvReac Intermediate UPSET Verified 12/01/23 12:17 STOMACH penicillin V AdvReac Unknown Abdominal Verified 12/01/23 12:17 Pain Active Medications: Current Medications Acetaminophen (Acetaminophen 325 Mg Tablet) 650 mg PO Q6H PRN PRN Reason: Pain, Mild (Pain Scale 1-3), fever or headache Acetylcysteine (Acetylcysteine 10 % 400 Mg/4 Ml Vial) 400 mg INHALE RBID SACHIN Last Admin: 12/01/23 07:23 Dose: 400 mg Albuterol/Ipratropium (Albuterol/Iprat 2.5/0.5mg 3 Ml Ampul.Neb) 3 ml INHALE RQ4H WHILE AWAKE [facility] Last Admin: 12/01/23 11:14 Dose: 3 ml Ascorbic Acid (Ascorbic Acid 500 Mg Tablet) 500 mg PO DAILY [facility] Last Admin: 12/01/23 06:38 Dose: Not Given Baclofen (Baclofen 20 Mg Tablet) 40 mg PO BEDTIME [facility] Last Admin: 11/30/23 20:34 Dose: 40 mg Baclofen (Baclofen 20 Mg Tablet) 20 mg PO TID@0900,1300,1700 [facility] Last Admin: 12/01/23 12:52 Dose: Not Given Benzocaine (Throat Lozenge, Medicated Lozenge) 1 lozenge MUCOUS MEM Q2H PRN PRN Reason: Cough Last Admin: 11/28/23 00:39 Dose: 1 lozenge Calcitriol (Calcitriol 0.25 Mcg Capsule) 0.25 mcg PO DAILY [facility] Last Admin: 12/01/23 06:38 Dose: Not Given Calcium Carbonate (Calcium Carbonate 750 Mg Tab.Chew) 750 mg PO Q4H PRN PRN Reason: Heartburn Dicyclomine HCl (Dicyclomine Hcl 10 Mg Capsule) 10 mg PO QID [facility] Last Admin: 12/01/23 12:52 Dose: Not Given Furosemide (Furosemide 20 Mg Tablet) 20 mg PO DAILY [facility]; Protocol Last Admin: 12/01/23 06:38 Dose: Not Given Gabapentin (Gabapentin 600 Mg Tablet) 600 mg PO BEDTIME [facility] Last Admin: 11/30/23 20:34 Dose: 600 mg Gabapentin (Gabapentin 100 Mg Capsule) 100 mg PO BID@0800,1400 [facility] Last Admin: 12/01/23 06:38 Dose: Not Given Guaifenesin (Guaifenesin 200 Mg/10 Ml 10 Ml Liquid) 10 ml PO Q4H PRN PRN Reason: Cough Last Admin: 11/27/23 10:29 Dose: 10 ml Guaifenesin (Guaifenesin La 600 Mg Tab.Er.12h) 600 mg PO BID [facility] Last Admin: 12/01/23 06:39 Dose: Not Given Piperacillin Sod/Tazobactam (Sod 4.5 gm/ Sodium Chloride) 100 mls @ 200 mls/hr IV Q6H [facility] Last Infusion: 12/01/23 13:16 Dose: Infused Levothyroxine Sodium (Levothyroxine Sodium 125 Mcg Tablet) 125 mcg PO DAILY@0630 [facility] Last Admin: 12/01/23 05:38 Dose: 125 mcg Magnesium Hydroxide (Milk Of Magnesia 30 Ml Oral.Susp) 30 ml PO DAILY PRN PRN Reason: Constipation Melatonin (Melatonin 3 Mg Tablet) 6 mg PO BEDTIME PRN PRN Reason: Insomnia Midodrine (Midodrine Hcl 10 Mg Tablet) 10 mg PO TID PRN PRN Reason: SBP <110 Sodium Chloride (0.9 % Sodium Chloride Flush 3 Ml Syringe) 3 ml IVFLUSH QSHIFT [facility] Last Admin: 12/01/23 06:37 Dose: Not Given Trazodone HCl (Trazodone Hcl 25 Mg Halftab) 75 mg PO BEDTIME [facility] Last Admin: 11/30/23 20:34 Dose: 75 mg Warfarin Sodium (Warfarin Sodium 4 Mg Tablet) 4 mg PO MoTuWeFrSa@1800 [facility] Last Admin: 11/29/23 17:46 Dose: 4 mg Warfarin Sodium (Warfarin Sodium 3 Mg Tablet) 3 mg PO SuTh@1800 [facility] Last Admin: 11/26/23 20:24 Dose: 3 mg Home Medications ?Medication ?Instructions ?Recorded ?Confirmed ?Last Taken ?Type ascorbic acid (vitamin C) 500 mg 500 mg PO DAILY 03/23/20 11/26/23 03/23/20 History tablet baclofen 10 mg tablet 20 mg PO TID@0900,1300,1700 03/23/20 11/26/23 03/23/20 History baclofen 10 mg tablet 40 mg PO BEDTIME 03/23/20 11/26/23 03/23/20 History calcitriol 0.25 mcg capsule 0.25 mcg PO DAILY 03/23/20 11/26/23 03/23/20 History docusate sodium 100 mg capsule 200 mg PO BEDTIME 03/23/20 11/26/23 03/23/20 History (Colace) cholecalciferol (vitamin D3) 1,250 1,250 mcg PO QMONTH 01/09/23 11/26/23 11/23/23 History mcg (50,000 unit) tablet dicyclomine 10 mg capsule 10 mg PO QID 01/09/23 11/26/23 Unknown History furosemide 20 mg tablet 20 mg PO DAILY 01/09/23 11/26/23 Unknown History gabapentin 100 mg capsule 100 mg PO BID@0800,1400 01/09/23 11/26/23 Unknown History gabapentin 600 mg tablet 600 mg PO BEDTIME 01/09/23 11/26/23 Unknown History melatonin 10 mg tablet 10 mg PO BEDTIME Sleep 01/09/23 11/26/23 Unknown History midodrine 10 mg tablet 10 mg PO NEEDED PRN SBP <110 01/09/23 11/26/23 Unknown History acetaminophen 325 mg tablet 650 mg PO Q6H PRN Fever Or Pain 11/26/23 11/26/23 Unknown History levothyroxine 125 mcg tablet 125 mcg PO DAILY 11/26/23 11/26/23 Unknown History multivitamin-iron 9 mg-folic acid 1 tab PO DAILY 11/26/23 11/26/23 Unknown History 400 mcg-calcium and minerals tablet nystatin 100,000 unit/gram topical 1 appl topical BID 11/26/23 11/26/23 Unknown History cream nystatin 100,000 unit/gram topical 1 appl topical BID 11/26/23 11/26/23 Unknown History powder (Nyamy) trazodone 150 mg tablet 75 mg PO BEDTIME 11/26/23 11/26/23 Unknown History warfarin 1 mg tablet 3 mg PO [id number]/26/23 11/26/23 Unknown History warfarin 4 mg tablet 4 mg PO [id number]@199911/26/23 11/26/23 11/25/23 History Exam Height,Weight and Vital Signs: Height 6 ft 4 in Weight 127.2 kg Last Vital Signs Temp 98.1 F 12/01/23 13:01 Pulse 60 12/01/23 13:01 Resp 18 12/01/23 13:01 BP 111/65 12/01/23 13:01 Pulse Ox 92 12/01/23 13:01 O2 Del Method Room Air 12/01/23 13:01 O2 Flow Rate 1 12/01/23 07:57 Pertinent Lab Results Pertinent Lab Results: Laboratory Tests 11/26/23 11/26/23 11/26/23 11:49 11:56 12:12 WBC 8.7 RBC 3.97 L Hgb 11.9 L Hct 36.1 L MCV 90.9 MCH 30.0 MCHC 33.0 RDW 16.2 H Plt Count 168 D MPV 9.1 L Immature Gran % (Auto) 0.3 Neut % (Auto) 72.4 Lymph % (Auto) 17.9 L Bonner % (Auto) 6.7 Eos % (Auto) 2.5 Baso % (Auto) 0.2 Lymph # (Auto) 1.6 Bonner # (Auto) 0.6 Eos # (Auto) 0.2 Baso # (Auto) 0.0 Abs Immat Gran (auto) 0.03 Absolute Neuts (auto) 6.3 Absolute Nucleated RBC 0.000 Nucleated RBC % (auto) 0.0 Hold Purple Top PT 26.5 H D INR 2.2 H APTT 31.6 D-Dimer High Sensitivty 207 O2 Saturation ABG pH at Pt Temp ABG pCO2 at Pt Temp ABG pO2 at Pt Temp ABG HCO3 ABG Base Excess (Actual) VBG pH 7.46 H VBG pCO2 43 VBG pO2 61 VBG HCO3 31 H VBG O2 Saturation 89.0 VBG Base Excess 6.8 Sodium 141 Potassium 4.1 Chloride 104 Carbon Dioxide 27 Anion Gap 14 BUN 24 H Creatinine 0.72 Estim Creat Clear Calc 144.9 Estimated GFR > 60 Random Glucose 95 Fasting Glucose Lactic Acid 0.9 Calcium 9.4 Magnesium Total Bilirubin 0.9 AST 19 ALT 16 Alkaline Phosphatase 83 Troponin I High Sens 17.9 B-Natriuretic Peptide 304 H Total Protein 7.6 Albumin 4.2 Urine Color Dark Yellow Urine Appearance Turbid Urine pH 8.0 Ur Specific [place] 1.025 Urine Protein 100 (2+) H Urine Glucose (UA) Negative Urine Ketones Negative Urine Blood Moderate (2+) H Urine Nitrite Positive H Ur Leukocyte Esterase Large (3+) H Urine RBC >20 H Urine WBC >50 H Ur Squamous Epith Cells 0-2 Other Crystals Present Urine Bacteria 4+ Hyaline Casts 3-5 Influenza Type A (PCR) NEGATIVE Influenza Type B (PCR) NEGATIVE RSV RNA Qual (PCR) NEGATIVE SARS-CoV-2 RNA (RT-PCR) NEGATIVE S. pyogenes GrpA ZACKERY 11/26/23 11/26/23 11/26/23 12:16 16:31 18:00 WBC RBC Hgb Hct MCV MCH MCHC RDW Plt Count MPV Immature Gran % (Auto) Neut % (Auto) Lymph % (Auto) Bonner % (Auto) Eos % (Auto) Baso % (Auto) Lymph # (Auto) Bonner # (Auto) Eos # (Auto) Baso # (Auto) Abs Immat Gran (auto) Absolute Neuts (auto) Absolute Nucleated RBC Nucleated RBC % (auto) Hold Purple Top PT 28.3 H INR 2.3 H APTT D-Dimer High Sensitivty O2 Saturation 92.0 ABG pH at Pt Temp 7.43 ABG pCO2 at Pt Temp 46 H ABG pO2 at Pt Temp 71 L ABG HCO3 31 H ABG Base Excess (Actual) 5.9 VBG pH VBG pCO2 VBG pO2 VBG HCO3 VBG O2 Saturation VBG Base Excess Sodium Potassium Chloride Carbon Dioxide Anion Gap BUN Creatinine Estim Creat Clear Calc Estimated GFR Random Glucose Fasting Glucose Lactic Acid Calcium Magnesium Total Bilirubin AST ALT Alkaline Phosphatase Troponin I High Sens B-Natriuretic Peptide Total Protein Albumin Urine Color Urine Appearance Urine pH Ur Specific [place] Urine Protein Urine Glucose (UA) Urine Ketones Urine Blood Urine Nitrite Ur Leukocyte Esterase Urine RBC Urine WBC Ur Squamous Epith Cells Other Crystals Urine Bacteria Hyaline Casts Influenza Type A (PCR) Influenza Type B (PCR) RSV RNA Qual (PCR) SARS-CoV-2 RNA (RT-PCR) S. pyogenes GrpA ZACKERY Negative 11/26/23 11/27/23 11/27/23 19:00 05:28 13:02 WBC 5.9 RBC 3.65 L Hgb 11.1 L Hct 33.7 L MCV 92.3 MCH 30.4 MCHC 32.9 RDW 15.9 Plt Count 167 MPV 9.8 Immature Gran % (Auto) Neut % (Auto) Lymph % (Auto) Bonner % (Auto) Eos % (Auto) Baso % (Auto) Lymph # (Auto) Bonner # (Auto) Eos # (Auto) Baso # (Auto) Abs Immat Gran (auto) Absolute Neuts (auto) Absolute Nucleated RBC 0.000 Nucleated RBC % (auto) 0.0 Hold Purple Top PT 33.1 H INR 2.7 H APTT D-Dimer High Sensitivty O2 Saturation ABG pH at Pt Temp ABG pCO2 at Pt Temp ABG pO2 at Pt Temp ABG HCO3 ABG Base Excess (Actual) VBG pH VBG pCO2 VBG pO2 VBG HCO3 VBG O2 Saturation VBG Base Excess Sodium 142 Potassium 3.8 Chloride 102 Carbon Dioxide 29 Anion Gap 15 BUN 18 H Creatinine 0.67 Estim Creat Clear Calc 155.8 Estimated GFR > 60 Random Glucose Fasting Glucose 89 Lactic Acid Calcium 8.2 L D Magnesium 1.9 Total Bilirubin AST ALT Alkaline Phosphatase Troponin I High Sens B-Natriuretic Peptide Total Protein Albumin Urine Color Yellow Urine Appearance Turbid Urine pH 5.5 Ur Specific [place] 1.025 Urine Protein 30 (1+) H Urine Glucose (UA) Negative Urine Ketones Trace Urine Blood Large (3+) H Urine Nitrite Negative Ur Leukocyte Esterase Large (3+) H Urine RBC >20 H Urine WBC >50 H Ur Squamous Epith Cells 6-10 Other Crystals Urine Bacteria 2+ Hyaline Casts 11-20 Influenza Type A (PCR) Influenza Type B (PCR) RSV RNA Qual (PCR) SARS-CoV-2 RNA (RT-PCR) S. pyogenes GrpA ZACKERY 11/28/23 11/29/23 11/29/23 07:10 05:35 16:17 WBC 6.5 6.0 RBC 3.89 L 3.51 L Hgb 11.6 L 10.4 L Hct 35.3 L 32.9 L MCV 90.7 93.7 MCH 29.8 29.6 MCHC 32.9 31.6 RDW 16.0 15.9 Plt Count 181 178 MPV 9.4 9.8 Immature Gran % (Auto) Neut % (Auto) Lymph % (Auto) Bonner % (Auto) Eos % (Auto) Baso % (Auto) Lymph # (Auto) Bonner # (Auto) Eos # (Auto) Baso # (Auto) Abs Immat Gran (auto) Absolute Neuts (auto) Absolute Nucleated RBC 0.000 0.000 Nucleated RBC % (auto) 0.0 0.0 Hold Purple Top PT 28.9 H 28.7 H INR 2.4 H 2.4 H APTT D-Dimer High Sensitivty O2 Saturation ABG pH at Pt Temp ABG pCO2 at Pt Temp ABG pO2 at Pt Temp ABG HCO3 ABG Base Excess (Actual) VBG pH VBG pCO2 VBG pO2 VBG HCO3 VBG O2 Saturation VBG Base Excess Sodium 144 144 Potassium 3.4 3.4 Chloride 106 104 Carbon Dioxide 26 30 H Anion Gap 15 13 BUN 15 16 Creatinine 0.67 0.74 Estim Creat Clear Calc 155.8 141.0 Estimated GFR > 60 > 60 Random Glucose Fasting Glucose 94 91 Lactic Acid Calcium 8.7 D 8.3 L Magnesium Total Bilirubin AST ALT Alkaline Phosphatase Troponin I High Sens B-Natriuretic Peptide Total Protein Albumin Urine Color Yellow Urine Appearance Hazy Urine pH 5.5 Ur Specific [place] >= 1.030 H Urine Protein 30 (1+) H Urine Glucose (UA) Negative Urine Ketones Trace Urine Blood Large (3+) H Urine Nitrite Negative Ur Leukocyte Esterase Moderate (2+) H Urine RBC >20 H Urine WBC 21-50 H Ur Squamous Epith Cells 3-5 Other Crystals Urine Bacteria None Seen Hyaline Casts 0-2 Influenza Type A (PCR) Influenza Type B (PCR) RSV RNA Qual (PCR) SARS-CoV-2 RNA (RT-PCR) S. pyogenes GrpA ZACKERY 11/30/23 12/01/23 06:38 05:31 WBC RBC Hgb Hct MCV MCH MCHC RDW Plt Count MPV Immature Gran % (Auto) Neut % (Auto) Lymph % (Auto) Bonner % (Auto) Eos % (Auto) Baso % (Auto) Lymph # (Auto) Bonner # (Auto) Eos # (Auto) Baso # (Auto) Abs Immat Gran (auto) Absolute Neuts (auto) Absolute Nucleated RBC Nucleated RBC % (auto) Hold Purple Top SEE NOTE PT 27.1 H 20.9 H D INR 2.2 H 1.7 H APTT D-Dimer High Sensitivty O2 Saturation ABG pH at Pt Temp ABG pCO2 at Pt Temp ABG pO2 at Pt Temp ABG HCO3 ABG Base Excess (Actual) VBG pH VBG pCO2 VBG pO2 VBG HCO3 VBG O2 Saturation VBG Base Excess Sodium Potassium Chloride Carbon Dioxide Anion Gap BUN Creatinine Estim Creat Clear Calc Estimated GFR Random Glucose Fasting Glucose Lactic Acid Calcium Magnesium Total Bilirubin AST ALT Alkaline Phosphatase Troponin I High Sens B-Natriuretic Peptide Total Protein Albumin Urine Color Urine Appearance Urine pH Ur Specific [place] Urine Protein Urine Glucose (UA) Urine Ketones Urine Blood Urine Nitrite Ur Leukocyte Esterase Urine RBC Urine WBC Ur Squamous Epith Cells Other Crystals Urine Bacteria Hyaline Casts Influenza Type A (PCR) Influenza Type B (PCR) RSV RNA Qual (PCR) SARS-CoV-2 RNA (RT-PCR) S. pyogenes GrpA ZACKERY Airway TM Dist: >3cm Neck ROM: Full Heart: irreg Assessment and Plan Assessment Anesthesia Assessment: Anesthesia Plan Discussed Final Anesthetic Review Family History of Problems with Anesthesia: No History of Problems with Anesthesia: Yes NPO: No ASA Class: III Final Preanesthetic Review: Meds/Allgs Chart Reviewed, Consent Obtained/Reviewed and Anes Risks/Benef Reviewed Patient Risk: Intermediate Procedure Risk: Intermediate Anesthetic Plan Anesthetic Plan: GA Disposition: Standard PACU
--- NOTE | 2023-12-01 14:20 | PM.DS ---
DS: Providers Provider Date of Service: 12/01/23 Date of admission: 11/26/23 17:45 Primary care physician: Unknown Physician Consults: 11/26/23 17:43 Consult to Pulmonology Routine Consulting Provider: Kathy Domingo Reason for consultation: mucus plug Consult to Pulmonology Routine Consulting Provider: [facility] Pulmonology Services Reason for consultation: pna, ?need for bronch 11/26/23 18:23 Consult to Wound Care Routine Reason for consultation: Sacral wound. Has provider been notified: Yes 11/27/23 08:58 Consult to Pulmonology Routine Consulting Provider: Dru Murillo Reason for consultation: pneumonia Has provider been notified: Yes 11/27/23 15:09 Consult to Ostomy Care Routine 11/30/23 12:25 Consult to Urology Routine Consulting Provider: Kurt Scott Reason for consultation: recurrent leaking from suprapubic cath DS: Diagnosis Discharge Diagnosis (1) Mucus plugging of bronchi: Status: Acute (2) Pneumonia: Status: Acute (3) Hypoxia: Status: Acute (4) Chronic restrictive lung disease: Status: Acute DS: Summary Hospital Course Hospital Course: Admission note HPI 68M PMH tetraplegia due to lesion at C5-C7, complicated by neurogenic bladder status post suprapubic catheter, sacral decubitus ulcer, DVT with IVC filter, paroxysmal atrial fibrillation, hypothyroid presented with cough and shortness of breath. Patient lives at a intermediate, reports about 2 days of shortness of breath, feeling like he needs to cough but unable to bring anything up, froggy voice . Denies fever or chills. In ED, patient with significant hypoxia which did improve with some suctioning. CT of the chest showed Abnormal endobronchial soft tissue opacification of the right mainstem bronchus and bilateral lower lobe bronchi, right greater than left. Bilateral lower lobe atelectasis/pneumonia, right greater than left. Hospital course The patient was admitted for treatment of Acute hypoxic respiratory failure due to pneumonia with mucus plug. Treated with IV Zosyn and lung toileting with Mucenix, Percussion, physiotherapy, incentive spirometry as he was weaned off oxygen during the hospital stay as he was seen by Pulmonology who did bronchoscopy to suction secretions. he recoved well after the procedure and was mainataining O2 on room air. He was seen by speech therapy team who started him on regular diet. For History of DVT. The patient was on Warfarin which was held for Bronchoscopy with last INR of 1.7 after small dose of oral Vit k 2.5 mg. received double the dose after the procedure and INR will be followed as outpatient. Discharge plan Continue to use Incentive spirometry Chest percussions Mucinex twice daily Continue Augmentin for 2 more days Time Attestation Discharge Coordination Time (in mins): 43 Quality: Safe Use of Opioids Does Pt have an Active Cancer Diagnosis on the Problem List?: No Quality: Stroke Does the patient have a stroke diagnosis?: No Physical Exam Vital Signs: Vital Signs: Last Vital Signs Temp 98.1 F 12/01/23 13:01 Pulse 60 12/01/23 13:01 Resp 18 12/01/23 13:01 BP 111/65 12/01/23 13:01 Pulse Ox 92 12/01/23 13:01 O2 Del Method Room Air 12/01/23 13:01 O2 Flow Rate 1 12/01/23 07:57 BMI result Body Mass Index 34.1 Const: Other: Constitutional : Awake, interactive, not in distress Neck : Normal inspection, Supple Cardiovascular : RRR, no JVP, no lower extremity edema Respiratory : good bilateral air entry, fine basal crackles, no expiratory rhonchi Gastrointestinal: soft, lax, Normal bowel sounds, Non tender Skin : Warm, Dry Neurological : Alert & oriented x3, No focal deficit DS: Data Data Completed and Pending Labs on day of discharge: Laboratory Results - last 24 hr 12/01/23 05:31 Hold Purple Top SEE NOTE PT 20.9 H D INR 1.7 H Preliminary micro results at discharge 11/26/23 12:12 Blood Culture - Preliminary Blood - Venous No growth after 48 hours. Imaging Chest x-ray: Radiologist's impression: ITS Impressions Chest X-Ray 11/26/23 13:19 IMPRESSION: Stable enlargement of the cardiac silhouette. No evidence for acute disease in the chest. Chest CTA 11/26/23 15:59 IMPRESSION: No evidence of pulmonary embolism. Abnormal endobronchial soft tissue opacification of the right mainstem bronchus and bilateral lower lobe bronchi, right greater than left. Bilateral lower lobe atelectasis/pneumonia, right greater than left. Enlarged heart. In particular, the left atrium is enlarged. VTE: Chest X-Ray 11/28/23 09:15 IMPRESSION: Slight patchy opacity in the right perihilar area. Findings may represent pneumonia. Follow-up to resolution is recommended. Chest X-Ray 11/29/23 07:48 IMPRESSION: There is airspace disease within the mid to lower lungs bilaterally, right greater than left. Recommend continued radiographic follow-up to full clearance. Discharge Plan Discharge Anticipated Discharge Date/Time: 12/01/23 17:30 Patient Disposition: Home Health Service Discharge Diagnosis: Pneumonia Mucus plug Referrals: Yulia Mckeon MD [Physician] - 1 Week Discharge Medications: New guaifenesin [Mucinex] 600 mg Tablet Extended Release 12hr 600 mg PO BID Qty: 20 0RF doxycycline monohydrate 100 mg capsule 100 mg PO BID Qty: 14 0RF amoxicillin-pot clavulanate 875-125 mg tablet 1 tab PO BID Qty: 14 0RF Continued ascorbic acid (vitamin C) 500 mg Tablet 500 mg PO DAILY baclofen 10 mg tablet 20 mg PO TID@0900,1300,1700 baclofen 10 mg tablet 40 mg PO BEDTIME docusate sodium [Colace] 100 mg Capsule 200 mg PO BEDTIME calcitriol 0.25 mcg capsule 0.25 mcg PO DAILY gabapentin 600 mg tablet 600 mg PO BEDTIME furosemide 20 mg tablet 20 mg PO DAILY gabapentin 100 mg capsule 100 mg PO BID@0800,1400 dicyclomine 10 mg capsule 10 mg PO QID Rx Instructions: with meals midodrine 10 mg Tablet 10 mg PO NEEDED PRN (Reason: SBP <110) melatonin 10 mg Tablet 10 mg PO BEDTIME cholecalciferol (vitamin D3) 1,250 mcg (50,000 unit) Tablet 1,250 mcg PO QMONTH Rx Instructions: every month on the tramadol 50 mg Tablet 50 mg PO Q8H PRN (Reason: Pain, Moderate(Pain Scale 4-6)) Qty: 14 0RF warfarin 4 mg tablet 4 mg PO MOTUWEFRSA@1999 trazodone 150 mg tablet 75 mg PO BEDTIME levothyroxine 125 mcg tablet 125 mcg PO DAILY nystatin 100,000 unit/gram cream 1 appl topical BID Rx Instructions: use with powder, apply to buttocks nystatin [Nyamyc] 100,000 unit/gram powder 1 appl topical BID Rx Instructions: use with cream, apply to buttocks warfarin 1 mg tablet 3 mg PO SUTH@1999 iyblyemh-lpya-DC-calcium-mins 9 mg iron-400 mcg tablet 1 tab PO DAILY acetaminophen 325 mg tablet 650 mg PO Q6H PRN (Reason: Fever Or Pain) Rx Instructions: For 10 days then as needed Discharge Orders: Discharge Order (Routine); Ordered 12/01/23 Ordered By: Azeem Newton Diet: Advance to usual diet Activity on Discharge: As tolerated Stand Alone Forms: Patient Portal Discharge page Print Language: Djiboutian Care Plan Goals: Continue to use Incentive spirometry Chest percussions Mucinex twice daily Continue Augmentin for 2 more days Health Concerns: Read below Plan of Treatment: Read below Assessment: Read below Discharge Date/Time: 12/01/23 21:50
--- NOTE | 2023-12-01 15:10 | MHC.CM.PN ---
IMM 12/01/23 DELIVERED TO PT'S HCP OLIVER PEREZ AT NUMBER ON FILE, DETAILED MESSAGE LEFT, CM ALSO SPOKE W/PT'S NURSE BILL AT [phone] IS AWARE MEDS TO BE FILLED HERE AT [facility] AND SENT HOME W/PT VIA AMBULANCE, [facility] FOR BLS TRANSPORT AT 6PM. IF FOR SOME REASON PT NEEDS OXYGEN AFTER BRONCHOSCOPY, PT WILL BE HELD AND NOT DISCHARGED.
[2023-12-01] MEDS: Dicyclomine HCl 10 MG CAPSULE PO (17:11)
[2023-12-01] MEDS: Baclofen 20 MG TABLET PO (17:12)
[2023-12-01] MEDS: Furosemide 20 MG/2 ML VIAL IVPUSH (17:12)
[2023-12-01] MEDS: 0.9 % Sodium Chloride Flush 3 ML SYRINGE IVFLUSH (17:13)
[2023-12-01] MEDS: Warfarin Sodium 1 MG TABLET PO (17:51)
[2023-12-01] MEDS: Warfarin Sodium 6 MG TABLET PO (17:51)
--- NOTE | 2023-12-01 21:58 | PC.NURSE ---
Pt seen on bed alert and oriented, cheerful and for discharge to snf, pertinent papers given to top cager, EMS came and pt left at 1360.
--- NOTE | 2023-12-05 13:46 | P.CDIM_ITS ---
PROVIDER RESPONSE TEXT: To clarify, the appropriate diagnosis supported by the clinical indicators: Pressure (decubitus) injury left heel Stage 3 QUERY TEXT: PHYSICIAN'S DOCUMENTATION REQUEST Date of Query: 11/30/2023 08:23 AM EDT Patient Name: SAQIB PEREZ Admit Date: 11/26/2023 Dear Azeem Newton, A review of the medical record indicates additional documentation may be needed. Please review below and update the documentation accordingly. Clinical Indicators: Wound care notes 11/28 - Wound consult placed by direct care nurse for left heel wound. Pressure injury Stage 3 left heel, present on admission, resolving Heel protector boots in place, no dressing needed at this time. Based on the above, could you please provide further information regarding the ulcer/wound/injury: Pressure (decubitus) injury left heel Stage 3 Other (explain) Clinically unable to determine (explain) Thank you, Maude Gaston, CCS, CDIS Use of terms such as suspected, likely, concern for, or probable (associated with a specific diagnosi s that is being evaluated, monitored, or treated as if it exists) are acceptable and can be coded in the inpatient se tting, when documented at the time of discharge. Please use your independent medical judgment in providing your response. THIS QUERY IS PART OF THE PERMANENT MEDICAL RECORD
--- NOTE | 2023-12-26 08:20 | P.BOP_ITS ---
Brief Operative Note Date of Service: 12/26/23 Pre-op diagnosis: pneumonia Post-op diagnosis: same Procedure: Bronchoscopy with therapeutic suctioning Surgeon: Dru Murillo MD Anesthesia: GETA Was an Experimental Mechanic used for this Procedure?: No Estimated blood loss (mL): 0 Pathology: none sent Condition: stable Disposition: floor
--- NOTE | 2023-12-26 10:06 | OP_ITS ---
DATE OF SERVICE: 12/01/2023 SURGEON: Dru Murillo MD PREOPERATIVE DIAGNOSIS: Pneumonia. POSTOPERATIVE DIAGNOSIS: Pneumonia and mixed plugging. PROCEDURE PERFORMED: Bronchoscopy with therapeutic suctioning. ESTIMATED BLOOD LOSS: COMPLICATIONS: ANESTHESIA: General. ASSISTANTS: None. SPECIMENS: PROCEDURE IN DETAIL: After the patient was adequately sedated and intubated, a flexible digital bronchoscope was inserted via ET tube to the level of the trachea. Tracheal bronchus appeared normal. The patient did have significant purulent secretions in the right mainstem bronchus. The tracheobronchial tree examined up to the subsegmental level. No evidence of endobronchial lesions or masses. Significant friability of the mucosa secondary to the infectious process. Using normal saline, bronchial washings were performed and the mucus plugs were removed with opening of the airways and cleaning out the purulent secretions. The bronchial washings were sent to microbiology. The bronchoscope was then removed. The total endoscopic time approximately 12 minutes. The patient tolerated procedure well, vital signs were stable. MD JI Wheeler/MAURO / [id number]
== END 2023-12-01 21:50 | disposition home health service (06) | DRG 193 ==
LOC: HO.ED 15:01 → HO.EDOVER 17:48 → HO.S3 18:16
PROVIDERS: Hospitalist; Admitting Provider Internal Medicine; Emergency Provider Emergency Medicine; PCP Family Medicine; Visit Provider Student in an Organized Health Care Education/Training Program
PROC: 0BJ08ZZ Inspection of Tracheobronchial Tree, Via Natural or Artificial Opening Endoscopic (ICD-10-PCS; CPT 31622; principal; 2023-12-01 13:30)
DX: J18.9 Pneumonia, unspecified organism (principal); G82.50 Quadriplegia, unspecified; L89.153 Pressure ulcer of sacral region, stage 3; J96.01 Acute respiratory failure with hypoxia; J98.11 Atelectasis; J69.0 Pneumonitis due to inhalation of food and vomit; I48.0 Paroxysmal atrial fibrillation; R13.10 Dysphagia, unspecified; S14.105S Unspecified injury at C5 level of cervical spinal cord, sequela; N31.9 Neuromuscular dysfunction of bladder, unspecified; E03.9 Hypothyroidism, unspecified; Z20.822 Contact with and (suspected) exposure to COVID-19; Z79.01 Long term (current) use of anticoagulants; Z79.890 Hormone replacement therapy; Z79.899 Other long term (current) drug therapy
CPT/HCPCS: 0241U; 36415; 71045; 71250; 71275; 74176; 74230; 80048; 80053; 80202; 81001; 82565; 82803; 83605; 83735; 83880; 84484; 85025; 85027; 85379; 85610; 85730; 87040; 87071; 87086; 87102; 87106; 87205; 87651; 92526; 92610; 92611; 93005; 93306; 94640; 99285; J0171; J0692; J1100; J1836; J1940; J1956; J2250; J2405; J2543; J2704; J3370; J3371; J7120; Q9957; Q9967

== ENCOUNTER → 2023-11-26 11:40 | Outpatient (BNV) | payer MEDICARE, MEDICAID, SELFPAY | PROVIDERS: Admitting Provider Internal Medicine; Emergency Provider Emergency Medicine; Visit Provider Internal Medicine Cardiovascular Disease | DX: R06.00 Dyspnea, unspecified (principal) | CPT/HCPCS: 93010 ==

== ENCOUNTER → 2023-11-26 17:45 | Outpatient (BNV) | payer MEDICARE, MEDICAID, SELFPAY | PROVIDERS: Admitting Provider Internal Medicine; Emergency Provider Emergency Medicine; Visit Provider Internal Medicine | DX: T17.500A Unspecified foreign body in bronchus causing asphyxiation, initial encounter (principal); J69.0 Pneumonitis due to inhalation of food and vomit; R09.02 Hypoxemia; J98.4 Other disorders of lung | CPT/HCPCS: 99223; 99232; 99239 ==

== ENCOUNTER → 2023-11-26 17:45 | Outpatient (BNV) | payer MEDICARE, MEDICAID, SELFPAY | PROVIDERS: Admitting Provider Internal Medicine; Emergency Provider Emergency Medicine; Visit Provider Hospitalist | DX: J18.9 Pneumonia, unspecified organism (principal); T17.500A Unspecified foreign body in bronchus causing asphyxiation, initial encounter | CPT/HCPCS: 31645; 99223; 99232; 99233 ==

== ENCOUNTER 2023-12-03 20:31 | Inpatient (IN) | payer MEDICARE, MEDICAID, SELFPAY ==
--- NOTE | ~2023-12-03 | CT_ITS ---
EXAMINATION: CT CHEST WITHOUT CONTRAST CT ABDOMEN AND PELVIS WITHOUT CONTRAST CLINICAL INFORMATION: Reason for Exam persistent cough. Difficulty breathing. Abdominal distention. COMPARISON: 11/26/2023 and 12/21/2018. TECHNIQUE: Multidetector volumetric imaging was performed from the thoracic inlet through the pubic symphysis. Sagittal and coronal images were reformatted. This CT examination was performed using dose optimization techniques as appropriate, variously including the following: *Automated exposure control *Adjustment of mA and/or kV according to patient size (this includes techniques or standardized protocols for targeted exams where dose is matched to indication/reason for exam; i.e. extremities or head) *Use of iterative reconstruction technique DOSE: 599 and 1365 mGy-cm FINDINGS: -CHEST- LUNG: Dense airspace consolidation in the left lower lobe has progressed as compared to prior with increased opacification of the lower lobe bronchi as can be seen with aspiration or pneumonia. Endoluminal opacities are also present within the right mainstem bronchus and right lower lobe bronchi with a bronchovascular opacities in the right lower and middle lobes which are increased as compared to prior. There is superimposed atelectasis in the right lower and middle lobes. Dependent secretions are present within the trachea as well. Upper lobes appear relatively well aerated without additional consolidation. MEDIASTINUM: There are gland is atrophic. Left pectoral pacemaker is in place with leads terminating in the right atrium and right ventricle. Global cardiomegaly. Small to moderate-sized pericardial effusion, unchanged. Atherosclerotic calcifications are present in the coronary arteries. Atherosclerotic calcification is also noted in the thoracic aorta which is normal in caliber. No mediastinal or hilar adenopathy. PLEURA: No significant effusion. No pleural mass or thickening. CHEST WALL/AXILLA: Unremarkable. -ABDOMEN/PELVIS- LIVER, GALLBLADDER, BILIARY TREE: The liver is normal in size, shape, and attenuation. No focal hepatic lesion or biliary ductal dilatation is present. Gallbladder surgically absent. PANCREAS: Mild fatty atrophy of the pancreas. No ductal dilatation. Lesions. SPLEEN: Normal size. No focal lesion. ADRENAL GLANDS: Normal; no mass. KIDNEYS AND URETERS: 2 punctate renal calculi are present in the left kidney, measuring up to 2 mm in diameter. A dependent 2 mm calculus is at the right ureteropelvic junction, though specificity is somewhat limited as it may correspond to excreted contrast given the presence of hyperdense material extending from the renal pelvis into a right upper pole calyx no hydronephrosis or hydroureter. A subtle punctate foci of hyperdensity are also noted within the right distal ureter near the UVJ. The kidneys are normal in size, shape, and attenuation. No perinephric stranding. BLADDER: A suprapubic [place] catheter is in place. A small amount of gas is present within the bladder. Minimal dependent hyperdensity within the bladder may correspond to a layer of punctate bladder calculi. Mild fat stranding around the bladder. GASTROINTESTINAL TRACT: Left mid abdominal colostomy with an associated adjacent Floyd's pouch. Mild gastric distention. Stomach and colon are normal in caliber. Moderate volume of stool throughout the colon. No evidence of acute appendicitis, the appendix is not well seen. No no free air or free fluid. ABDOMINAL WALL: Status post left inguinal herniorrhaphy. A small residual fluid collection is evident at the left inguinal canal measuring 4.8 x 2 x 4.4 cm, potentially a postoperative seroma. As noted above, there is a left midabdominal urostomy as well as a suprapubic [place] catheter. No peristomal hernias. VASCULATURE: Atherosclerotic calcifications are present in the abdominal aorta and iliac arteries. No aneurysmal dilatation. IVC filter is in place. LYMPH NODES: No lymphadenopathy. . PELVIC VISCERA: Dystrophic calcifications in the central prostate. OSSEUS STRUCTURES: No acute fracture or malalignment. Bones are diffusely density mineralized, potentially due to hyperparathyroidism.. Moderate degenerative disc disease at L4-L5. Mild to moderate osteoarthritis in both hips CT/CT abdomen pelvis wo IV con IMPRESSION: 1. Progression of the lower lobe consolidation and endoluminal bronchial opacification, left side greater than, as can be seen with aspiration or pneumonia. 2. No acute intra-abdominal or intrapelvic abnormalities. 3. Nonobstructing punctate renal calculi. Possible punctate calculi in the right distal ureter and bladder. No hydronephrosis or hydroureter. 4. A suprapubic catheter in the bladder. Mild fat stranding around the bladder wall raises the possibility of superimposed cystitis. 5. Status post left inguinal herniorrhaphy with a small residual fluid collection at the left inguinal canal, potentially a postoperative seroma. 6. Cardiomegaly with a small to moderate-sized pericardial effusion, unchanged.
--- NOTE | ~2023-12-03 | XR_ITS ---
EXAMINATION: XR CHEST CLINICAL INFORMATION: sob COMPARISON: Chest radiograph 11/28/2023 TECHNIQUE: AP view of the chest was obtained. FINDINGS: Left chest MRI compatible pacemaker with single lead overlying the right ventricle, as before. Marked cardiomegaly, unchanged. The lung apices are out of [id number]. No pneumothorax in the visualized lungs. The lungs are hypoexpanded. Small left greater than right pleural effusions with associated lung base hazy opacities. No overt pulmonary edema. No acute osseous abnormality. XR/XR chest 1V IMPRESSION: 1. Small left greater than right pleural effusions with associated lung base hazy opacities, which could represent atelectasis/consolidation. 2. Marked cardiomegaly, unchanged.
--- NOTE | ~2023-12-03 | FL_ITS ---
EXAMINATION: Modified Barium Swallows CLINICAL INFORMATION: Dysphagia COMPARISON: None TECHNIQUE: Modified barium swallow was performed under lateral fluoroscopy with patient in standing position. Barium mixed with solids and liquids of different consistencies was administered by the speech pathologist. Examination was recorded in the fluoroscopy suite. FINDINGS: Laryngeal penetration was seen with thin barium. No subglottic aspiration was observed. FLUOROSCOPY TIME: 1 minute 28 seconds Number of Spot Images: N/A DOSE AREA PRODUCT: 1537 uGy-m2 (microgray-meter squared) FL/FL barium swallow modified IMPRESSION: Laryngeal penetration was seen with thin barium. No subglottic aspiration was observed. Refer to the speech therapy report for further clarification. This procedure was performed by Morales Talley PA-C, and supervised by Dr. Wilson
[2023-12-03 20:38] VITALS: BP 146/90; PULSE 115; O2SAT 96
[2023-12-03 21:13] VITALS: BP 99/57; PULSE 61; RESP 22; TEMP 36.3; O2SAT 94
[2023-12-03 21:14] VITALS: O2SAT 94
[2023-12-03 21:15] VITALS: BMI 28.0
--- NOTE | 2023-12-03 21:23 | ECG_ITS ---
Test Reason : SOB Blood Pressure : / mmHG Vent. Rate : 061 BPM Atrial Rate : 241 BPM P-R Int : 000 ms QRS Dur : 132 ms QT Int : 482 ms P-R-T Axes : 000 -24 -06 degrees QTc Int : 485 ms Ventricular-paced rhythm Abnormal ECG When compared with ECG of 26-NOV-2023 11:40, Vent. rate has decreased BY 12 BPM Referred By: Debbie Wilde Electronically Signed By:BRENDA DENNISON
--- NOTE | 2023-12-03 21:29 | ED.SOB ---
HPI - SOB/Dyspnea General Chief Complaint: Upper Respiratory Symptoms Stated Complaint: sob and cough Time Seen by Provider: 12/03/23 21:02 Source: patient, EMS and old records reviewed Mode of arrival: EMS Limitations: no limitations History of Present Illness ED Provider: ALDA CRUZ Narrative: 68 yo male with PMH of paraplegia due to lesion at C5-C7, neurogenic bladder s/p suprapubic catheter, sacral decubitus ulcer, DVT with IVC filter coumadin, paroxysmal atrial fibrillation, hypothyroid just admitted and treated here with DC on 11/30 for hypoxic resp failure, pneumonia, underwent bronchoscopy started on doxy and augmentin weaned to room air who presents tonight with c/o continued cough unable to clear staff feel he is short of breath and sister was worried about his appearance he states he is fine. He was 91% on RA with improvement to 94%. He denies fevers. MD elicited complaint: shortness of breath and cough Pertinent past history: pneumonia Onset (ago): day(s) (2) Context: recent illness Timing: intermittent Severity: moderate Exacerbating factors: coughing Relieving factors: oxygen and upright position Known history of: recurrent pneumonia Associated symptoms: cough Treatment prior to arrival: oxygen Related Data Home Medications ?Medication ?Instructions ?Recorded ?Confirmed ascorbic acid (vitamin C) 500 mg 500 mg PO DAILY 03/23/20 11/26/23 tablet baclofen 10 mg tablet 20 mg PO TID@0900,1300,1700 03/23/20 11/26/23 baclofen 10 mg tablet 40 mg PO BEDTIME 03/23/20 11/26/23 calcitriol 0.25 mcg capsule 0.25 mcg PO DAILY 03/23/20 11/26/23 docusate sodium 100 mg capsule 200 mg PO BEDTIME 03/23/20 11/26/23 (Colace) cholecalciferol (vitamin D3) 1,250 1,250 mcg PO QMONTH 01/09/23 11/26/23 mcg (50,000 unit) tablet dicyclomine 10 mg capsule 10 mg PO QID 01/09/23 11/26/23 furosemide 20 mg tablet 20 mg PO DAILY 01/09/23 11/26/23 gabapentin 100 mg capsule 100 mg PO BID@0800,1400 01/09/23 11/26/23 gabapentin 600 mg tablet 600 mg PO BEDTIME 01/09/23 11/26/23 melatonin 10 mg tablet 10 mg PO BEDTIME Sleep 01/09/23 11/26/23 midodrine 10 mg tablet 10 mg PO NEEDED PRN SBP <110 01/09/23 11/26/23 acetaminophen 325 mg tablet 650 mg PO Q6H PRN Fever Or Pain 11/26/23 11/26/23 levothyroxine 125 mcg tablet 125 mcg PO DAILY 11/26/23 11/26/23 multivitamin-iron 9 mg-folic acid 1 tab PO DAILY 11/26/23 11/26/23 400 mcg-calcium and minerals tablet nystatin 100,000 unit/gram topical 1 appl topical BID 11/26/23 11/26/23 cream nystatin 100,000 unit/gram topical 1 appl topical BID 11/26/23 11/26/23 powder (Nyamyc) trazodone 150 mg tablet 75 mg PO BEDTIME 11/26/23 11/26/23 warfarin 1 mg tablet 3 mg PO SUTH@199911/26/23 11/26/23 warfarin 4 mg tablet 4 mg PO [id number]@199911/26/23 11/26/23 Previous Rx's ?Medication ?Instructions ?Recorded tramadol 50 mg tablet 50 mg PO Q8H PRN Pain, 01/10/23 Moderate(Pain Scale 4-6) #14 tabs amoxicillin 875 mg-potassium 1 tab PO BID #14 tabs 12/01/23 clavulanate 125 mg tablet doxycycline monohydrate 100 mg 100 mg PO BID #14 caps 12/01/23 capsule guaifenesin 600 mg tablet, 600 mg PO BID #20 tabs 12/01/23 extended release 12 hr (Mucinex) Allergies Allergy/AdvReac Type Severity Reaction Status Date / Time dicloxacillin [From DYNAPEN] Allergy Unknown Unknown Verified 12/03/23 21:18 ofloxacin [From FLOXIN] AdvReac Intermediate Abdominal Verified 12/03/23 21:18 Pain penicillin V AdvReac Intermediate Abdominal Verified 12/03/23 21:18 Pain Review of Systems Review of Systems: Constitutional : No Fever, No Chills ENT/Mouth : No Hoarseness, No sore throat, No Rhinorrhea Eyes: No Redness, No Discharge, No Vision Changes Cardiovascular : No Chest Pain, no Edema Respiratory : positive Cough, No Sputum, positive Wheezing, Gastrointestinal : No Nausea, No Vomiting, No Diarrhea, No abdominal Pain Genitourinary : No Dysuria, No Hematuria Musculoskeletal : No joint pain, No Myalgias Skin : No rash Neuro : No Weakness, No Numbness, No Headache Psych : No anxiety, depression All other systems reviewed and are negative [facility] Past Medical History Attestation statement: The following information was validated with the patient. Source: old records reviewed Medical History Chronic restrictive lung disease Pneumonia Urine retention Irreducible left inguinal hernia Autonomic dysfunction Hypothyroidism Hernia Atrial fibrillation Spasms of the hands or feet Spinal cord injury Surgical History S/P tendon repair H/O hemorrhoidectomy S/P IVC filter H/O hernia repair H/O thyroidectomy Family History Family History Sister Diabetes mellitus Social History Social History Household Members: Other Household Members Other:: intermediate Housing: House Housing Other:: intermediate in [place] Do you presently have visiting nurse or other home services: No Alcohol intake: former Comment: low extremity paralysis Patient Tobacco Use Status: Never used Tobacco Smoked in Last 30 Days: No Use of substances other than those prescribed or required for medical reasons: No Advance Directives: Yes Advance Directives on File: Yes Advance Directives Date on File: 01/09/23 service: No Physical Exam Vital Signs: Vital Signs: Last Vital Signs Temp 98.3 F 12/03/23 22:00 Pulse 77 12/03/23 22:00 Resp 17 12/03/23 22:00 BP 116/58 L 12/03/23 22:00 Pulse Ox 98 12/03/23 22:00 O2 Del Method Room Air 12/03/23 22:00 O2 Flow Rate 2 12/03/23 21:13 Oxygen Flow Rate 2 12/03/23 21:14 BMI result Body Mass Index 28.0 Appearance: Alert. Oriented X3. No acute distress. Eyes: Pupils equal, round and reactive to light. ENT: Pharynx normal. Neck: Normal inspection. Neck supple. CVS: Normal heart rate and rhythm. Pulses normal. Respiratory: No respiratory distress. Breath sounds both bases diminished rhonchi noted cannot clear secretions on his own but no stridor Abdomen: Soft and non-tender. Skin: Skin warm and dry. Normal skin color. Normal skin turgor. Extremities: No lower extremity edema. Neuro: Oriented X 3. No motor deficit. No sensory deficit. Medications Administered Discontinued Medications Generic Name Dose Route Start Last Admin Trade Name Freq PRN Reason Stop Dose Admin Albuterol Sulfate 2.5 mg/ 0 mg 12/03/23 21:42 12/03/23 21:47 Albuterol/Ipratropium 3 ml INHALE 12/03/23 21:43 1 dose ONCE ONE Administration Cefepime HCl 1 gm/ Sodium 50 mls @ 100 mls/hr 12/03/23 21:40 12/03/23 23:02 Chloride IV 12/03/23 22:09 Infused ONCE ONE Infusion Sodium Chloride 500 mls @ 500 mls/hr 12/03/23 22:26 12/03/23 23:02 Ns IV 12/03/23 23:25 500 mls/hr .Q1H ONE Administration Medical Decision Making Medical Decision Making [facility] Narrative: 68 yo male with PMH of paraplegia due to lesion at C5-C7, neurogenic bladder s/p suprapubic catheter, sacral decubitus ulcer, DVT with IVC filter coumadin, paroxysmal atrial fibrillation, hypothyroid here from intermediate with reported increased dyspnea, O2 demands, unable to produce sputum at this time will obtain labs, cultures, viral panel, CT chest for disease and start on cefepime. He refused suction in the ED is stable 95% on 2L at this time. No CP to suggest ACS Differential Diagnosis Differential Diagnoses: The differential diagnosis associated with the presentation includes pneumonia, mucous plugging on coumadin again doubt VTE Admission/Observation Consideration of admission/observation: Escalation of care including admission/observation considered will admit for further workup and management with IV abx and pulm toilet/chest PT Consult Healthcare Provider Management of the patient was discussed with: Hospitalist (will admit) Lab Data [facility] Lab Attestation statement: I reviewed the patient's lab results. 12/03/23 21:51 12/03/23 21:51 Labs: Lab Results 12/03/23 12/03/23 Range/Units 21:51 21:57 WBC 6.8 (4.8-10.8) X10*3/uL RBC 3.72 L (4.60-5.80) X10*6/uL Hgb 10.9 L (14.0-18.0) g/dl Hct 35.2 L (42.0-52.0) % MCV 94.6 (80.0-98.0) fL MCH 29.3 (27.0-33.0) pg MCHC 31.0 (31.0-36.0) g/dl RDW 16.3 H (11.0-16.0) % Plt Count 201 (160-400) X10*3/uL MPV 9.4 (9.4-12.4) fL Immature Gran % (Auto) 2.8 H (0.0-0.4) % Neut % (Auto) 67.8 (45-73) % Lymph % (Auto) 20.5 (20-40) % Mills % (Auto) 6.1 (2-11) % Eos % (Auto) 2.4 (0-4) % Baso % (Auto) 0.4 (0-2) % Lymph # (Auto) 1.4 (1.2-4.9) X10*3/uL Mills # (Auto) 0.4 (0.1-1.2) X10*3/uL Eos # (Auto) 0.2 (0.0-0.4) X10*3/uL Baso # (Auto) 0.0 (0.0-0.2) X10*3/uL Abs Immat Gran (auto) 0.19 H (0.00-0.03) X10*3/uL Absolute Neuts (auto) 4.6 (2.0-8.3) x10*3/uL Absolute Nucleated RBC 0.000 (0.0-0.012) X10*3/uL Nucleated RBC % (auto) 0.0 (0.0-0.2) /100WBC PT 22.0 H (11.1-13.3) SEC INR 1.8 H (0.9-1.1) VBG pH 7.44 H (7.32-7.43) VBG pCO2 47 mmHg VBG pO2 97 mmHg VBG HCO3 33 H (22-26) mmol/L VBG O2 Saturation 98.0 % VBG Base Excess 8.0 mmol/L Sodium 142 (135-145) mmol/L Potassium 3.9 (3.3-5.1) mmol/L Chloride 105 (96-108) mmol/L Carbon Dioxide 27 (22-29) mmol/L Anion Gap 14 (12-20) BUN 20 H (9-16) mg/dL Creatinine 0.73 (0.5-1.4) mg/dL Estim Creat Clear Calc 130.2 Estimated GFR > 60 Random Glucose 165 H (60-115) mg/dL Lactic Acid 2.1 H* (0.5-2.0) mmol/L Calcium 8.9 D (8.4-10.2) mg/dL Troponin I High Sens 9.5 (<3.5-35.0) ng/L B-Natriuretic Peptide 108 H (<100) pg/mL Independent Interpretation I performed an independent interpretation of an: EKG, Plain X-Ray (opacities) and CT Scan (worsening opacities stable pericardial effusion) Interpretation: Rate: 61 Rhythm: v paced Xenia: left Normal P waves. Normal BRANDIE. Normal QRS complex. ST T wave : no RIGOBERTO, flat t waves inf leads qTC: 485 prior studies: no change from prior The study has been interpreted contemporaneously by me. . Radiology Impression Discussion of test interpretation with radiology: I have reviewed the radiologist's reading. Independent Historian Clinical information obtained from an independent historian. History obtained from or confirmed by: EMS External Record Review External record reviewed: Inpatient record Discharge Plan Discharge Clinical Impression: Hypoxia, Pneumonia Patient Disposition: Admitted As Inpatient Prescriptions: No Action ascorbic acid (vitamin C) 500 mg Tablet 500 mg PO DAILY baclofen 10 mg tablet 20 mg PO TID@0900,1300,1700 baclofen 10 mg tablet 40 mg PO BEDTIME docusate sodium [Colace] 100 mg Capsule 200 mg PO BEDTIME calcitriol 0.25 mcg capsule 0.25 mcg PO DAILY gabapentin 600 mg tablet 600 mg PO BEDTIME furosemide 20 mg tablet 20 mg PO DAILY gabapentin 100 mg capsule 100 mg PO BID@0800,1400 dicyclomine 10 mg capsule 10 mg PO QID Rx Instructions: with meals midodrine 10 mg Tablet 10 mg PO NEEDED PRN (Reason: SBP <110) melatonin 10 mg Tablet 10 mg PO BEDTIME cholecalciferol (vitamin D3) 1,250 mcg (50,000 unit) Tablet 1,250 mcg PO QMONTH Rx Instructions: every month on the 20th tramadol 50 mg Tablet 50 mg PO Q8H PRN (Reason: Pain, Moderate(Pain Scale 4-6)) Qty: 14 0RF warfarin 4 mg tablet 4 mg PO MOTUWEFRSA@2000 trazodone 150 mg tablet 75 mg PO BEDTIME levothyroxine 125 mcg tablet 125 mcg PO DAILY nystatin 100,000 unit/gram cream 1 appl topical BID Rx Instructions: use with powder, apply to buttocks nystatin [Nyamyc] 100,000 unit/gram powder 1 appl topical BID Rx Instructions: use with cream, apply to buttocks warfarin 1 mg tablet 3 mg PO SUTH@2000 qwvbedvb-aqxm-EE-calcium-mins 9 mg iron-400 mcg tablet 1 tab PO DAILY acetaminophen 325 mg tablet 650 mg PO Q6H PRN (Reason: Fever Or Pain) Rx Instructions: For 10 days then as needed guaifenesin [Mucinex] 600 mg Tablet Extended Release 12hr 600 mg PO BID Qty: 20 0RF doxycycline monohydrate 100 mg capsule 100 mg PO BID Qty: 14 0RF amoxicillin-pot clavulanate 875-125 mg tablet 1 tab PO BID Qty: 14 0RF Print Language: Kinyarwanda
[2023-12-03 21:47] VITALS: PULSE 59; RESP 16; O2SAT 93
[2023-12-03] MEDS: Albuterol Sulfate 2.5 MG, Albuterol/Iprat 2.5/0.5MG 3 ML 3 ML INHALE (21:47)
[2023-12-03 22:00] VITALS: BP 116/58; PULSE 77; RESP 17; TEMP 36.8; O2SAT 98
[2023-12-03 22:01] LABS: MANUAL DIFF FLAG NO
[2023-12-03 22:03] LABS: VBG HCO3 33 mmol/L (22-26); VBG pCO2 47 mmHg; VBG pH 7.44 (7.32-7.43); VBG pO2 97 mmHg
[2023-12-03 22:04] LABS: Venous Blood Gas Refer to POC result
[2023-12-03 22:08] LABS: Basophils Percent Auto 0.4 % (0-2); Eosinophils Absolute Auto 0.2 X10*3/uL (0.0-0.4); Eosinophils Percent Auto 2.4 % (0-4); Hematocrit 35.2 % (42.0-52.0); Hemoglobin 10.9 g/dl (14.0-18.0); Imm Gran Abs Auto 0.19 X10*3/uL (0.00-0.03); Imm Gran Pct Auto 2.8 % (0.0-0.4); Lymphocytes Absolute Auto 1.4 X10*3/uL (1.2-4.9); Lymphocytes Percent Auto 20.5 % (20-40); Mean Corpuscular Hemoglobin 29.3 pg (27.0-33.0); Mean Corpuscular Volume 94.6 fL (80.0-98.0); Mean Platelet Volume 9.4 fL (9.4-12.4); Monocytes Absolute Auto 0.4 X10*3/uL (0.1-1.2); Monocytes Percent Auto 6.1 % (2-11); Neutrophils Absolute Auto 4.6 x10*3/uL (2.0-8.3); Neutrophils Percent Auto 67.8 % (45-73); Platelet Count 201 X10*3/uL (160-400); Red Blood Count 3.72 X10*6/uL (4.60-5.80); Red Cell Distribution Width 16.3 % (11.0-16.0); White Blood Count 6.8 X10*3/uL (4.8-10.8)
[2023-12-03 22:17] LABS: INTERNATIONAL NORM RATIO 1.8 (0.9-1.1)
[2023-12-03] MEDS: cefEPime HCl 1 GM in 0.9 % Sodium Chloride 50 ML IV (22:20)
[2023-12-03 22:24] LABS: Anion Gap 14 (12-20); Blood Urea Nitrogen 20 mg/dL (9-16); Calcium 8.9 mg/dL (8.4-10.2); Carbon Dioxide 27 mmol/L (22-29); Chloride 105 mmol/L (96-108); Creatinine Clr Calc Pharmacy 130.2; Estimated Glomerular Filt Rate > 60; Glucose Random 165 mg/dL (60-115); Potassium 3.9 mmol/L (3.3-5.1); Sodium 142 mmol/L (135-145)
[2023-12-03 22:27] LABS: Lactic Acid 2.1 mmol/L (0.5-2.0)
[2023-12-03 22:30] LABS: B Type Natriuretic Peptide 108 pg/mL (<100)
[2023-12-03 22:34] LABS: Troponin-I High Sensitivity 9.5 ng/L (<3.5-35.0)
--- NOTE | 2023-12-03 22:41 | PC.NURSE ---
Family member Arlene [phone] called looking for update, RN Chelo made aware, will call back when available.
[2023-12-03] MEDS: 0.9 % Sodium Chloride 500 ML IV (23:02)
[2023-12-03 23:56] LABS: Reflex Lactate? Lactic Acid Added
[2023-12-04] VITALS (9 sets, daily range): BP systolic 98–162; BP diastolic 51–84; PULSE 60–67; RESP 12–20; TEMP 36.3–37.1; O2SAT 93–99
[2023-12-04] MEDS: metroNIDAZOLE/NS 500 MG/100 ML PIGGYBACK 100 MG IV ×3 (00:35→15:35)
[2023-12-04 01:10] LABS: ~Lactic Acid-LAB USE ONLY 1.1 mmol/L (0.5-2.0)
[2023-12-04] MEDS: vancomycin/NS 2,000 MG/500 ML PLAST..BAG 250 MG IV (01:30)
[2023-12-04] MEDS: Lactated Ringers 1,000 ML 999 ML IV (02:00)
--- NOTE | 2023-12-04 02:29 | P.HPHOSP_ITS ---
History of Present Illness Date of Service: 12/04/23 Attending physician on admission: Keshawn Gr Chief Complaint: Shortness of breaths Denzel Quinonez is a 68 years old man with past medical history significant for tetraplegia due to C5-C7, neurogenic bladder status post suprapubic catheter, colostomy, sacral decubitus ulcer, IVC filter, paroxysmal atrial fibrillation on warfarin, pacemaker implantation and hypothyroidism was brought to the emergency department from his long-term due to worsening shortness of breath and cough. The patient was discharged 2 days ago with diagnosis of acute hypoxic respiratory failure due to pneumonia with mucus plugs with concern for aspiration/dysphagia. During this hospitalization he was treated with IV antibiotics, Zosyn long toileting, physiotherapy, incentive spirometry and underwent a bronchoscopy to suction secretions. He was also seen by speech therapy who started him on regular diet. He was discharged to complete a course of Augmentin and doxycycline. Did not report any headache, abdominal pain, nausea, vomiting, fever or chills. Per EMS, he was found to have an oxygen saturation 91% on room air and was placed on supplemental oxygen via nasal cannula (2L/min). In the ED, he was found to have normal vital signs. He is currently on 2 L supplemental oxygen via nasal cannula. Blood workup did not show leukocytosis. There is very minimal lactic acidosis that resolved. Hemoglobin is at baseline. There are no electrolyte imbalances. INR is 1.8. BNP is 108. Urinalysis consistent with urinary tract infection. Chest, abdomen pelvis CT scan showed progression of the left lower lobe consolidation and endoluminal bronchial opacification (L>R, seen with aspiration pneumonia), no acute intracranial abnormality or intrapelvic abnormality, nonobstructive punctuated renal calculi, no hydronephrosis or hydroureter, suprapubic catheter in the bladder with possible superimposed cystitis changes, postop seroma, cardiomegaly with [id number] size pericardial effusion, unchanged. ECG shows ventricular paced rhythm, heart rate 61 bpm. ED tx: Flagyl 500 mg IV, NS 500 mL bolus, DuoNeb 3 ml neb, IV, vancomycin 2 g IV, cefepime 1 g IV Review of Systems 2 Review of Systems: All 12 systems were reviewed and normal except as noted in HPI. [facility] Medical History Chronic restrictive lung disease Pneumonia Urine retention Irreducible left inguinal hernia Autonomic dysfunction Hypothyroidism Hernia Atrial fibrillation Spasms of the hands or feet Spinal cord injury Family History Sister Diabetes mellitus Surgical History S/P tendon repair H/O hemorrhoidectomy S/P IVC filter H/O hernia repair H/O thyroidectomy Social History Household Members: Other Household Members Other:: long-term Housing: House Housing Other:: long-term in [facility] you presently have visiting nurse or other home services: No Alcohol intake: former Comment: low extremity paralysis Patient Tobacco Use Status: Never used Tobacco Smoked in Last 30 Days: No Use of substances other than those prescribed or required for medical reasons: No Advance Directives: Yes Advance Directives on File: Yes Advance Directives Date on File: 01/09/23 service: No Meds Allergies Allergy/AdvReac Type Severity Reaction Status Date / Time dicloxacillin [From DYNAPEN] Allergy Unknown Unknown Verified 12/03/23 21:18 ofloxacin [From FLOXIN] AdvReac Intermediate Abdominal Verified 12/03/23 21:18 Pain penicillin V AdvReac Intermediate Abdominal Verified 12/03/23 21:18 Pain Active Medications: Current Medications Acetaminophen (Acetaminophen 325 Mg Tablet) 975 mg PO Q6H PRN PRN Reason: Pain, Mild (Pain Scale 1-3), fever or headache Albuterol/Ipratropium (Albuterol/Iprat 2.5/0.5mg 3 Ml Ampul.Neb) 3 ml INHALE Q4H PRN PRN Reason: Shortness of Breath/Wheezing Lactated Ringer's (Lr) 1,000 mls @ 999 mls/hr IV .Q1H1M STA Stop: 12/04/23 02:28 Lactated Ringer's (Lr) 1,000 mls @ 100 mls/hr IVCONT .Q10H SACHIN Metronidazole (Flagyl) 500 mg in 100 mls @ 100 mls/hr IV Q8H SACHIN Cefepime HCl 1 gm/ Sodium (Chloride) 50 mls @ 100 mls/hr IV Q8H [facility] Pharmacy Consult (Consult Rx Vancomycin Dosing) 1 each MISCELLANE DAILY PRN PRN Reason: Consult order Sodium Chloride (0.9 % Sodium Chloride Flush 3 Ml Syringe) [facility] Medications ?Medication ?Instructions ?Recorded ?Confirmed ?Last Taken ?Type ascorbic acid (vitamin C) 500 mg 500 mg PO DAILY 03/23/20 11/26/23 03/23/20 History tablet baclofen 10 mg tablet 20 mg PO TID@0900,1300,1700 03/23/20 11/26/23 03/23/20 History baclofen 10 mg tablet 40 mg PO BEDTIME 03/23/20 11/26/23 03/23/20 History calcitriol 0.25 mcg capsule 0.25 mcg PO DAILY 03/23/20 11/26/23 03/23/20 History docusate sodium 100 mg capsule 200 mg PO BEDTIME 03/23/20 11/26/23 03/23/20 History (Colace) cholecalciferol (vitamin D3) 1,250 1,250 mcg PO QMONTH 01/09/23 11/26/23 11/23/23 History mcg (50,000 unit) tablet dicyclomine 10 mg capsule 10 mg PO QID 01/09/23 11/26/23 Unknown History furosemide 20 mg tablet 20 mg PO DAILY 01/09/23 11/26/23 Unknown History gabapentin 100 mg capsule 100 mg PO BID@0800,1400 01/09/23 11/26/23 Unknown History gabapentin 600 mg tablet 600 mg PO BEDTIME 01/09/23 11/26/23 Unknown History melatonin 10 mg tablet 10 mg PO BEDTIME Sleep 01/09/23 11/26/23 Unknown History midodrine 10 mg tablet 10 mg PO NEEDED PRN SBP <110 01/09/23 11/26/23 Unknown History acetaminophen 325 mg tablet 650 mg PO Q6H PRN Fever Or Pain 11/26/23 11/26/23 Unknown History levothyroxine 125 mcg tablet 125 mcg PO DAILY 11/26/23 11/26/23 Unknown History multivitamin-iron 9 mg-folic acid 1 tab PO DAILY 11/26/23 11/26/23 Unknown History 400 mcg-calcium and minerals tablet nystatin 100,000 unit/gram topical 1 appl topical BID 11/26/23 11/26/23 Unknown History cream nystatin 100,000 unit/gram topical 1 appl topical BID 11/26/23 11/26/23 Unknown History powder ([facility]) trazodone 150 mg tablet 75 mg PO BEDTIME 11/26/23 11/26/23 Unknown History warfarin 1 mg tablet 3 mg PO SUTH@199911/26/23 11/26/23 Unknown History warfarin 4 mg tablet 4 mg PO MOTUWEFRSA@199911/26/23 11/26/23 11/25/23 History Physical Exam 2 Vital Signs and Narrative: Vital Signs: Last Vital Signs Temp 98.2 F 12/04/23 01:20 Pulse 63 12/04/23 01:20 Resp 18 12/04/23 01:20 BP 105/51 L 12/04/23 01:53 Pulse Ox 94 12/04/23 01:20 O2 Del Method Nasal Cannula 12/04/23 01:20 O2 Flow Rate 2 12/04/23 01:20 Oxygen Flow Rate 2 12/03/23 21:14 BMI result Body Mass Index 28.0 Constitutional - Awake and Alert, No apparent distress. Nasal cannula in place. Cooperative. Pleasant. HEENT - PERRL, EOMI. Dry oral mucosa. Heart- RRR, distant sounds. Lungs - Normal lung expansion, Normal respiratory effort, No respiratory distress. Tachypnea. Bilateral rhonchi. No crackles. No wheezing. Abdomen - NT / ND; +BS; No rebound or guarding Extremities - bilateral pitting edema. Musculoskeletal - Normal inspection, normal ROM Skin - Warm/Dry Neurological - Alert & oriented x3. Quadriplegia. Psychological - Appropriate affect Results Labs 12/03/23 21:51 12/03/23 21:51 Labs: Laboratory Results - last 24 hr 12/03/23 12/03/23 12/04/23 21:51 21:57 00:49 MCV 94.6 MCH 29.3 MCHC 31.0 RDW 16.3 H Plt Count 201 MPV 9.4 Immature Gran % (Auto) 2.8 H Neut % (Auto) 67.8 Lymph % (Auto) 20.5 Granite % (Auto) 6.1 Eos % (Auto) 2.4 Baso % (Auto) 0.4 Lymph # (Auto) 1.4 Granite # (Auto) 0.4 Eos # (Auto) 0.2 Baso # (Auto) 0.0 Abs Immat Gran (auto) 0.19 H Absolute Neuts (auto) 4.6 Absolute Nucleated RBC 0.000 Nucleated RBC % (auto) 0.0 PT 22.0 H INR 1.8 H VBG pH 7.44 H VBG pCO2 47 VBG pO2 97 VBG HCO3 33 H VBG O2 Saturation 98.0 VBG Base Excess 8.0 Anion Gap 14 Estim Creat Clear Calc 130.2 Estimated GFR > 60 Random Glucose 165 H Lactic Acid 2.1 H* Lactic Acid F/U @ 2Hr 1.1 Calcium 8.9 D Troponin I High Sens 9.5 B-Natriuretic Peptide 108 H Imaging Radiologist's Impressions: Impressions Chest X-Ray 12/03/23 21:30 IMPRESSION: 1. Small left greater than right pleural effusions with associated lung base hazy opacities, which could represent atelectasis/consolidation. 2. Marked cardiomegaly, unchanged. Chest CT 12/03/23 22:40 IMPRESSION: 1. Progression of the lower lobe consolidation and endoluminal bronchial opacification, left side greater than, as can be seen with aspiration or pneumonia. 2. No acute intra-abdominal or intrapelvic abnormalities. 3. Nonobstructing punctate renal calculi. Possible punctate calculi in the right distal ureter and bladder. No hydronephrosis or hydroureter. 4. A suprapubic catheter in the bladder. Mild fat stranding around the bladder wall raises the possibility of superimposed cystitis. 5. Status post left inguinal herniorrhaphy with a small residual fluid collection at the left inguinal canal, potentially a postoperative seroma. 6. Cardiomegaly with a small to moderate-sized pericardial effusion, unchanged. Abdomen/Pelvis CT 12/03/23 22:45 IMPRESSION: 1. Progression of the lower lobe consolidation and endoluminal bronchial opacification, left side greater than, as can be seen with aspiration or pneumonia. 2. No acute intra-abdominal or intrapelvic abnormalities. 3. Nonobstructing punctate renal calculi. Possible punctate calculi in the right distal ureter and bladder. No hydronephrosis or hydroureter. 4. A suprapubic catheter in the bladder. Mild fat stranding around the bladder wall raises the possibility of superimposed cystitis. 5. Status post left inguinal herniorrhaphy with a small residual fluid collection at the left inguinal canal, potentially a postoperative seroma. 6. Cardiomegaly with a small to moderate-sized pericardial effusion, unchanged. Assessment and Plan (1) Pneumonia: Qualifiers: Aspiration pneumonia type: unspecified Laterality: bilateral Lung location: lower lobe of lung Pneumonia type: aspiration pneumonia Qualified Code(s): J69.0 - Pneumonitis due to inhalation of food and vomit Status: Acute (2) Quadriplegia, C5-C7 incomplete: Status: Acute Plan Denzel Quinonez is a 68 y/o man admitted with: * Dyspnea likely secondary to worsening pneumonia, likely aspiration in the setting underlying restrictive lung disease; s/p recent bronchoscopy for secretion removal; pericardial effusion could be contributing to dyspnea. Admit to hospitalist service. Telemetry. Pulse oximetry. Supplemental O2 to keep O2 sats > 90%. Continue empiric IV antibiotic therapy with cefepime, Flagyl and vancomycin. Bronchodilator therapy as needed. Aspiration precautions. Swallow evaluation. Check echocardiogram. * ? Urinary tract infection. Suspecting colonization due to chronic suprapubic catheter. * Paroxysmal atrial fibrillation, DVT -s/p IVC filter. Continue warfarin. INR daily. * Quadriplegia with neurogenic bladder. Status post suprapubic catheter. * Hypothyroidism. Continue levothyroxine. * Sacral decubitus ulcer, POA. Wound care. * Chronic anemia. At baseline. Continue to monitor. * History of spinal cord injury, C5-C6. Continue baclofen. * s/p colostomy placement. No acute issues. * s/p PPM. ECG showed ventricular paced rhythm. DVT prophylaxis: Warfarin Code status: Full Patient will need hospitalization for at least 2 midnights for shortness on breath treatment secondary to pneumonia and/or pericardial effusion with supplemental oxygen, bronchodilator therapy and empiric IV antibiotic therapy. Quality Stroke Does the patient have a stroke diagnosis?: No VTE Prior VTE?: No VTE Risk Level:: Medical - moderate - high VTE Device Contraindication: Treatment Not Indicated VTE Drug Contraindication: N/A - Med Ordered
[2023-12-04] MEDS: Lactated Ringers 1,000 ML 75 ML IVCONT (03:30)
[2023-12-04 05:12] LABS: MANUAL DIFF FLAG NO
[2023-12-04 05:13] LABS: Basophils Percent Auto 0.6 % (0-2); Eosinophils Absolute Auto 0.2 X10*3/uL (0.0-0.4); Eosinophils Percent Auto 2.4 % (0-4); Hematocrit 34.1 % (42.0-52.0); Hemoglobin 10.7 g/dl (14.0-18.0); Imm Gran Abs Auto 0.21 X10*3/uL (0.00-0.03); Imm Gran Pct Auto 3.3 % (0.0-0.4); Lymphocytes Absolute Auto 1.3 X10*3/uL (1.2-4.9); Mean Corpuscular HGB Conc 31.4 g/dl (31.0-36.0); Mean Corpuscular Hemoglobin 29.5 pg (27.0-33.0); Mean Corpuscular Volume 93.9 fL (80.0-98.0); Mean Platelet Volume 9.3 fL (9.4-12.4); Monocytes Absolute Auto 0.5 X10*3/uL (0.1-1.2); Monocytes Percent Auto 7.3 % (2-11); Neutrophils Absolute Auto 4.2 x10*3/uL (2.0-8.3); Neutrophils Percent Auto 65.4 % (45-73); Platelet Count 201 X10*3/uL (160-400); Red Blood Count 3.63 X10*6/uL (4.60-5.80); White Blood Count 6.3 X10*3/uL (4.8-10.8)
[2023-12-04 05:19] LABS: INTERNATIONAL NORM RATIO 1.8 (0.9-1.1); Prothrombin Time 21.8 SEC (11.1-13.3)
[2023-12-04 05:31] LABS: Alanine Aminotransferase 40 U/L (0-40); Albumin Level 3.6 g/dL (3.5-5.0); Alkaline Phosphatase 67 U/L (39-117); Anion Gap 13 (12-20); Aspartate Amino Transferase 22 U/L (5-37); Bilirubin Total 0.3 mg/dL (0.0-1.0); Blood Urea Nitrogen 18 mg/dL (9-16); Calcium 8.1 mg/dL (8.4-10.2); Carbon Dioxide 26 mmol/L (22-29); Chloride 107 mmol/L (96-108); Creatinine Clr Calc Pharmacy 153.4; Estimated Glomerular Filt Rate > 60; Glucose Random 104 mg/dL (60-115); Potassium 3.8 mmol/L (3.3-5.1); Sodium 142 mmol/L (135-145); Total Protein 6.5 g/dL (6.5-8.0)
[2023-12-04] MEDS: cefEPime HCl 1 GM in 0.9 % Sodium Chloride 50 ML IV ×3 (06:18→21:32)
--- NOTE | 2023-12-04 06:58 | PHA.PROG ---
Admission Date/Time: December 04, 2023 01:24 Indication: RESPIRATORY Weight in k.326 kg Adjusted body weight in Kg: [place] body weight in Kg: Obesity Dosing Indication % IBW: Serum Creatinine - Last 168 Hours 12/03/23 12/04/23 21:51 04:26 Creatinine 0.73 0.62 Estimated CrCl and GFR - Last 168 Hours 12/03/23 12/04/23 21:51 04:26 Estim Creat Clear Calc 130.2 153.4 Estimated GFR > 60 > 60 Vancomycin Loading Dose: 2000 MG Current Vancomycin Dosing Regimen: 1500 Q12H Vancomycin Monitoring using AUC goal of 400 - 600 range with trough as surrogate marker: HMX=503 TROUGH=17.1 Date and Time for next Vancomycin Level to be drawn: 12/05/23 @1200 Pharmacist Comments on Vancomycin Plan: Vancomycin dosing will take advantage of [employer] as a clinical decision support tool that uses Bayesian modeling to calculate individual patient's pharmacokinetic parameters and forecast the patient's drug concentration time course with the target goal AUC 24 range of 400 - 600 mg/L/hr.
--- NOTE | 2023-12-04 07:00 | CA_ITS ---
Transthoracic Echocardiogram Patient (Last, First, Middle): Denzel Quinonez E Gender: Male Date of : 1955 Age: 68 Procedure Date: 12/04/2023 Procedure Type: Transthoracic Echocardiogram Location: ER Height: 193. cm Weight: 104.33 kg BSA: 2.35 m2 Heart Rate: 60 bpm BP: 111 / 72 mmHg Food And Nutrition Teacher: LETICIA Referring MD: Keshawn Gr MD Symptoms: Pericardial effusion, shortness of breath Study Quality: Technically Difficult w/Contrast ECG Rhythm: Atrial Fibrillation Conclusions: - Technically difficult study with limited visualization. - LVEF difficult to assess, possibly about 45-50%. - No obvious valvular pathology seen on this study. - Small to moderate sized primarily posterior pericardial effusion, adjacent to the left ventricle. Visualization is suboptimal. Findings Procedure Information Contrast agent, definity, is being given per protocol without apparent complications. Left Ventricle Normal left ventricular cavity size. There is moderately increased left ventricular wall thickness. The left ventricular systolic function is mildly decreased. Regional wall motion abnormalities can not be excluded due to suboptimal endocardial definition. LVEF difficult to assess, possibly about 45-50%. Right Ventricle The right ventricle was not well visualized. Aortic Valve The aortic valve was not well visualized. There is mild calcification of the aortic valve. There is no aortic valve stenosis. There is no aortic valve regurgitation. Mitral Valve The mitral valve was not well visualized. There is no mitral valve regurgitation. There is no mitral valve stenosis. Pulmonic Valve The pulmonic valve is likely normal. Tricuspid Valve The tricuspid valve was not well visualized. There is no tricuspid valve regurgitation. Tricuspid regurgitation envelope is inadequate for calculation of right ventricular systolic pressure. Great Vessels The asc aorta is normal in size. Venous The inferior vena cava was not well visualized. Pericardium/Pleural Small to moderate sized primarily posterior pericardial effusion, adjacent to the left ventricle. Visualization is suboptimal. Prior Study Comparison No significant change compared to prior study dated: 12/22/2018. Pericardial effusion similar in prior images. Recommendations, Care & Conclusions No obvious valvular pathology seen on this study. Measurements 2D Linear Measurements IVSd: 1.30 0.6-0.9/0.6-1.0 cm LVIDd: 4.71 3.9-5.3/4.2-5.9 cm LVIDd Index: 2.00 2.4-3.2/2.2-3.1 cm/m2 LVIDs: 3.64 2.0-3.6 cm LVPWd: 1.50 0.7-1.1 cm LA Diam: 5.30 2.7-3.8/3.0-4.0 cm LAIDs Index: 2.26 1.5-2.3 cm/m2 LV Mass: 331.84 67-162/88-224 g LV Mass Index: 141.21 43-95/49-115 g/m2 LVOT Diam: 2.50 3.0+(-)1.3 cm 2D Systolic Function EF 4C: 51.70 >55% EF 2C: 55.80 >55% EF BiP: 53.20 >55% Mitral Valve MV Pk E: 1.33 MV Decel Time: 234.00 E'Lateral: 8.59 E'Medial: 9.14 E/E' Med: 14.60 E/E' Lat: 15.50 PHT: 69.00 MVA PHT: 3.19 Decel [place]: 5.67 Aortic Valve AoV Pk Moises: 1.15 AoV Mn Moises: 0.74 AoV VTI: 0.24 AoV Pk Grad: 5.00 Aov Mn Grad: 3.00 JHONY Cont.VTI: 3.27 LVOT LVOT Pk Moises: 0.88 LVOT Mn Moises: 0.54 LVOT VTI: 0.16 LVOT Pk Grad: 3.00 LVOT Mn Grad: 1.00 LVOT Diam: 2.50 LVOT Area: 4.91 Diastolic Function MV Pk E: 1.33 E'Medial: 9.14 E/E' Med: 14.60 E' Laterial: 8.59 E/E' Lat: 15.50 Right Ventricle TAPSE (mm): 28.40 TVS' Moises: 7.83 Great Vessels Aorta Sinus of Valsalva: 3.90 2.0-3.5 cm Ao Asc: 3.70 2.1-3.4 cm Pulmonary Valve PV Pk Moises: 0.62 Peak PV Grad: 2.00 Updated in Other Vendor System with Status of Final Guillermo De La Fuente MD electronically signed on 12/04/2023 12:52:12 PM with status of Final
--- NOTE | 2023-12-04 08:32 | PC.NURSE ---
patient resting quietly in hospital bed, repositioned and pads changed, AM care done. patient noted to have deep tissue pressure injury to bottom. patient s awake, alert and oriented, LR running 75ml/hr. patient medicated oper MAR, patient titrated down from oxymask 4l to NC 2L satting 98%. Suprapubic cath in place, drained 250ml out of rojo bag this am of anoop urine. respirations shallow, unlabored RR12.
--- NOTE | 2023-12-04 10:25 | MHC.CM.PN ---
CM SPOKE TO WM [phone] AT [facility] SHE CONFIRMS PTS HCP IS NOT INVOKED, PT SPEAKS FOR HIMSELF HE IS PARAPLEGIC AND DEPENDENT FOR CARE WM SAYS SHE WILL BE THE CONTACT FOR THE NEXT FEW DAYS AFTER WHICH THE OTHER RN, BO WILL BE ON ([phone]) HCP ON FILE IMM DELIVERED VERBALLY TO PT WHO REPORTS UNDERSTANDING, COPY AT BEDSIDE DCP: RETURN TO [facility] VIA BLS
--- NOTE | 2023-12-04 11:15 | PC.NURSE ---
patient colostomy bag replaced due to being full, patient tolerated well.
--- NOTE | 2023-12-04 11:32 | MHC.SL.SWA ---
Speech Pathologist Impression: Risk of Aspiration Due to: History of Pneumonia Dysphasia Diet Status: Recommending REGULAR SOLIDS with THIN LIQUIDS and MEDS WHOLE with LIQUID. Pt continues to require ASSISTANCE with TRAY SET-UP, and would benefit from supervision during meals with strict aspiration pre-cautions. Continue to position UPRIGHT BEFORE and AFTER MEALS at least 30 MINS. Liquid Consistency and Strategies for Safe Swallow: Liquid Intake Recommendation: Thin Liquid Intake Strategies: Small Sips Solid Food Consistency: Dietary Recommendations: Regular Additional Modifications to Solid Foods: Provide assistance with tray (opening items, assuring access to all food and drink). Avoid too large pieces of food: If food is in the form a large, uncut piece of meat, patient may need assistance with cutting into small pieces. Cue patient to take small bites and sips, alternate liquids and solids. Oral Medication Intake: Whole with Liquid Please contact the pharmacy regarding appropriate crushable or liquid drug formulations that are available whenever modified delivery is recommended. Compensatory Strategies and Precautions to be Taken for Safe Swallow: Sitting Upright (90 deg) Liquids from Cup Liquids from Straw Small Bites and Sips Alternate Liquids/Solids Rate of Ingestion Change Supervision While Eating and Drinking for Safe Swallow: Total Supervision (1:1) Foods to Avoid: Too large pieces of solid foods. Swallowing Recommended Treatments: Compens. Strategy Educat. Recommendation for Speech: Inpatient Speech Therapy Modified Barium Swallow Study - Inpatient Modified Barium Swallow Study - Outpatient Comment: Patient presents with oral motor function and swallow mostly WFL. However patient here with repeat aspiration pna, indicating ? of silent aspiration, ?aspiration of reflux. Recommend continue on current diet of REGULAR with THIN liquids, pills whole with puree. Patient would benefit from supervision during meals to monitor for any clinical signs of aspiration/difficulty, and to assist with set up of tray. Given unknown origin of aspiration, patient may benefit from MBSS study to rule out silent aspiration, either, if indicated can be scheduled, as inpatient, or as outpatient. RESIDENT CARE ASSISTANT will continue to follow to evaluate toleration of recommended diet, need for further instrumental study. MD/RD advised of recommendation by secure text. Frequency/Duration: Date Range for Service Req: Timeline to reassess: Prefabricated Houses Trimmer Clinican/Clinical Fellow: No Supervisory Statement: I have reviewed and agree with the student/clinical fellow's documentation: N/A Speech Language Pathologist: Keena Cooper M.A., CCC-RESIDENT CARE ASSISTANT
--- NOTE | 2023-12-04 12:22 | PM.EVENT ---
Event Note Date of Service: 12/04/23 Event Note: 47-year-old man admitted with dyspnea secondary to pneumonia likely aspiration Aspiration pneumonia History of restrictive lung disease Status post recent bronchoscopy for secretion removal Continue supplemental oxygen to keep oxygen saturation greater than 90% Continue cefepime, Flagyl and vancomycin plan for MBSS Possible urinary tract infection May also be colonization secondary to super pubic catheter Paroxysmal atrial fibrillation/DVT History of IVC filter Continue warfarin Check PT INR daily History of paraplegia History of neurogenic bladder, has suprapubic catheter Hypothyroidism Continue levothyroxine History of sacral decubitus ulcer. Present on admission Wound care consultation Chronic anemia. At baseline. Continue to monitor. History of spinal cord injury, C5-C6. Continue baclofen. s/p colostomy placement. No acute issues. s/p PPM. DVT prophylaxis: Warfarin Attending Dr. Corona Code status: Full Patient will need hospitalization for at least 2 midnights for shortness on breath treatment secondary to pneumonia and/or pericardial effusion with supplemental oxygen, bronchodilator therapy and empiric IV antibiotic therapy. Time Spent With Patient Time: Total time managing care of this patient today ____ minutes.
[2023-12-04 12:58] LABS: Hematocrit 35.5 % (42.0-52.0); Hemoglobin 11.3 g/dl (14.0-18.0); Mean Corpuscular HGB Conc 31.8 g/dl (31.0-36.0); Mean Corpuscular Hemoglobin 30.1 pg (27.0-33.0); Mean Corpuscular Volume 94.4 fL (80.0-98.0); Mean Platelet Volume 8.8 fL (9.4-12.4); Platelet Count 182 X10*3/uL (160-400); Red Blood Count 3.76 X10*6/uL (4.60-5.80); White Blood Count 6.2 X10*3/uL (4.8-10.8)
[2023-12-04 13:08] LABS: Anion Gap 13 (12-20); Blood Urea Nitrogen 17 mg/dL (9-16); Calcium 8.2 mg/dL (8.4-10.2); Carbon Dioxide 27 mmol/L (22-29); Chloride 106 mmol/L (96-108); Creatinine Clr Calc Pharmacy 166.8; Estimated Glomerular Filt Rate > 60; Glucose Random 101 mg/dL (60-115); Potassium 3.8 mmol/L (3.3-5.1); Sodium 142 mmol/L (135-145)
--- NOTE | 2023-12-04 13:17 | MHC.EDTECH ---
pt refused lunch at this time with no reason given, rn made aware
--- NOTE | 2023-12-04 13:46 | PC.NURSE ---
patient suprapubic cath found to be leaking, inpatient provider notified, urology consult placed. patient bladder scanned showing 557ml in bladder. patient cleaned up, new pads and gown. patient tolerated well.
[2023-12-04] MEDS: vancomycin HCL 1,500 MG in 0.9 % Sodium Chloride 500 ML 333.33 MG IV (14:00)
--- NOTE | 2023-12-04 14:16 | MHC.CLN ---
NUTRITION PATIENT KNOWN FROM RECENT ADMISSION. HX OF WOUNDS. ADDING ENSURE MAX BID (300 KCALS, 60 G PROTEIN) TO PROMOTE WOUND HEALING. CLINICAL NUTRITION ASSESSMENT TO BE COMPLETED UPON HOSPITAL ADMISSION.
--- NOTE | 2023-12-04 14:40 | PHA.MEDREC ---
Addendum entered by Brianna Albert, [facility] 12/04/23 14:43: notified jack castro the [facility] rec is complete. 12/04/23 @3308 Original Note: Pharmacy Consult ? Medication Reconciliation Pharmacy has completed the medication reconciliation. Harlan had list from [facility] [place]. patient last discharged on 12/01/23
[2023-12-04] MEDS: 0.9 % Sodium Chloride Flush 3 ML SYRINGE IVFLUSH (21:34)
[2023-12-05] VITALS: BP 111/61; PULSE 60; RESP 20; TEMP 36.7; O2SAT 93
[2023-12-05] MEDS: metroNIDAZOLE/NS 500 MG/100 ML PIGGYBACK 100 MG IV ×3 (00:15→15:16)
[2023-12-05] MEDS: vancomycin HCL 1,500 MG in 0.9 % Sodium Chloride 500 ML 333.33 MG IV (01:26)
[2023-12-05 04:00] VITALS: BP 158/84; PULSE 63; RESP 20; TEMP 36.9
[2023-12-05] MEDS: cefEPime HCl 1 GM in 0.9 % Sodium Chloride 50 ML IV ×3 (06:02→22:49)
[2023-12-05 07:20] LABS: Creatinine Clr Calc Pharmacy 163.9; Estimated Glomerular Filt Rate > 60
[2023-12-05] MEDS: Gabapentin 100 MG CAPSULE PO ×2 (07:52→14:36)
[2023-12-05] MEDS: 0.9 % Sodium Chloride Flush 3 ML SYRINGE IVFLUSH ×3 (07:52→22:43)
[2023-12-05] MEDS: Midodrine HCl 10 MG TABLET PO ×3 (07:53→18:20)
[2023-12-05] MEDS: Furosemide 20 MG TABLET PO (07:53)
[2023-12-05] MEDS: Dicyclomine HCl 10 MG CAPSULE PO ×4 (07:54→20:11)
[2023-12-05] MEDS: Baclofen 20 MG TABLET PO ×3 (07:54→18:20)
[2023-12-05] MEDS: guaiFENesin LA 600 MG TAB.ER.12H PO ×2 (07:55→20:10)
[2023-12-05] MEDS: Multivitamin TABLET 1 TAB PO (07:55)
[2023-12-05] MEDS: Ascorbic Acid 500 MG TABLET PO (07:56)
[2023-12-05 08:00] VITALS: BP 144/83; PULSE 60; RESP 18; TEMP 36.6; O2SAT 93
[2023-12-05] MEDS: calcitrioL 0.25 MCG CAPSULE PO (08:03)
[2023-12-05] MEDS: Ferrous Sulfate 324 MG TABLET.DR PO (08:11)
--- NOTE | 2023-12-05 09:46 | MHC.SLORD ---
Speech Language Pathology Order Status: MBSS order received. Scheduled for 11:30am today, 12/05/23. Radiology will arrange for transport.
--- NOTE | 2023-12-05 09:50 | P.PNIM_ITS ---
Subjective Subjective Date of Service: 12/05/23 Interval History: Follow up resp failure Review of Systems Review of Systems: Yes all other systems are reviewed and are negative Physical Exam 2 Vital Signs: Vital Signs: Last Vital Signs Temp 97.8 F 12/05/23 08:00 Pulse 60 12/05/23 08:00 Resp 18 12/05/23 08:00 BP 144/83 H 12/05/23 08:00 Pulse Ox 93 12/05/23 08:00 O2 Del Method Room Air 12/05/23 08:00 O2 Flow Rate 4 12/04/23 07:03 Oxygen Flow Rate 2 12/03/23 21:14 BMI result Body Mass Index 28.0 Objective Data Active Medications Acetaminophen (Acetaminophen 325 Mg Tablet) 975 mg PO Q6H PRN PRN Reason: Pain, Mild (Pain Scale 1-3), fever or headache Albuterol/Ipratropium (Albuterol/Iprat 2.5/0.5mg 3 Ml Ampul.Neb) 3 ml INHALE Q4H PRN PRN Reason: Shortness of Breath/Wheezing Ascorbic Acid (Ascorbic Acid 500 Mg Tablet) 500 mg PO DAILY [facility] Last Admin: 12/05/23 07:56 Dose: 500 mg Documented By: SHARITA Baclofen (Baclofen 20 Mg Tablet) 20 mg PO TID@0900,1300,1700 [facility] Last Admin: 12/05/23 07:54 Dose: 20 mg Documented By: SHARITA Baclofen (Baclofen 20 Mg Tablet) 40 mg PO BEDTIME [facility] Calcitriol (Calcitriol 0.25 Mcg Capsule) 0.25 mcg PO DAILY [facility] Last Admin: 12/05/23 08:03 Dose: 0.25 mcg Documented By: SHARITA Dicyclomine HCl (Dicyclomine Hcl 10 Mg Capsule) 10 mg PO QID [facility] Last Admin: 12/05/23 07:54 Dose: 10 mg Documented By: SHARITA Docusate Sodium (Docusate Sodium 100 Mg Capsule) 200 mg PO BEDTIME [facility] Ferrous Sulfate (Ferrous Sulfate 324 Mg Tablet.) 324 mg PO DAILY [facility] Last Admin: 12/05/23 08:11 Dose: 324 mg Documented By: SHARITA Furosemide (Furosemide 20 Mg Tablet) 20 mg PO DAILY [facility]; Protocol Last Admin: 12/05/23 07:53 Dose: 20 mg Documented By: SHARITA Gabapentin (Gabapentin 100 Mg Capsule) 100 mg PO BID@0800,1400 [facility] Last Admin: 12/05/23 07:52 Dose: 100 mg Documented By: SHARITA Gabapentin (Gabapentin 600 Mg Tablet) 600 mg PO BEDTIME [facility] Guaifenesin (Guaifenesin La 600 Mg Tab.Er.12h) 600 mg PO BID [facility] Last Admin: 12/05/23 07:55 Dose: 600 mg Documented By: SHARITA Metronidazole (Flagyl) 500 mg in 100 mls @ 100 mls/hr IV Q8H [facility] Last Admin: 12/05/23 07:58 Dose: 100 mls/hr Documented By: SHARITA Cefepime HCl 1 gm/ Sodium (Chloride) 50 mls @ 100 mls/hr IV Q8H [facility] Last Infusion: 12/05/23 06:41 Dose: Infused Documented By: DWAINE Vancomycin HCl 1,500 mg/ (Sodium Chloride) 500 mls @ 333.333 mls/hr IV Q12H [facility] Last Infusion: 12/05/23 03:27 Dose: Infused Documented By: DWAINE Levothyroxine Sodium (Levothyroxine Sodium 125 Mcg Tablet) 125 mcg PO DAILY@0630 [facility] Melatonin (Melatonin 3 Mg Tablet) 9 mg PO BEDTIME [facility] Midodrine (Midodrine Hcl 10 Mg Tablet) 10 mg PO TIDWM [facility] Last Admin: 12/05/23 07:53 Dose: 10 mg Documented By: SHARITA Multivitamins/Vitamin C (Multivitamin Tablet) 1 tab PO DAILY [facility] Last Admin: 12/05/23 07:55 Dose: 1 tab Documented By: SHARITA Nystatin (Nystatin Powder 15 Gm Bottle) 1 appl TOPICAL BID [facility]; Protocol Pharmacy Consult (Consult Rx Vancomycin Dosing) 1 each MISCELLANE DAILY PRN PRN Reason: Consult order Senna (Sennosides 8.6 Mg Tablet) 8.6 mg PO DAILY PRN PRN Reason: Constipation Sodium Chloride (0.9 % Sodium Chloride Flush 3 Ml Syringe) 3 ml IVFLUSH QSHIFT [facility] Last Admin: 12/05/23 07:52 Dose: 3 ml Documented By: SHARITA Tramadol HCl (Tramadol Hcl 50 Mg Tablet) 50 mg PO Q8H PRN PRN Reason: Pain, Moderate(Pain Scale 4-6) Trazodone HCl (Trazodone Hcl 25 Mg Halftab) 75 mg PO BEDTIME [facility] Warfarin Sodium (Warfarin Sodium 3 Mg Tablet) 3 mg PO SuTh@1800 [facility] Warfarin Sodium (Warfarin Sodium 4 Mg Tablet) 4 mg PO MoTuWeFrSa@1800 [facility] Labs 12/04/23 12:47 12/05/23 06:19 Labs: Laboratory Results - last 24 hr 12/04/23 12/05/23 12:47 06:19 MCV 94.4 MCH 30.1 MCHC 31.8 RDW 16.0 Plt Count 182 MPV 8.8 L Absolute Nucleated RBC 0.000 Nucleated RBC % (auto) 0.0 Hold Purple Top SEE NOTE Anion Gap 13 Estim Creat Clear Calc 166.8 163.9 Estimated GFR > 60 > 60 Random Glucose 101 Calcium 8.2 L Microbiology Microbiology Results: Microbiology 12/03/23 21:51 Blood Culture - Preliminary Blood - Venous No growth after 24 hours. 12/03/23 21:51 Blood Culture - Preliminary Blood - Venous No growth after 24 hours. Assessment and Plan (1) Pneumonia: Status: Acute (2) Mucus plugging of bronchi: Status: Acute Plan 47-year-old man admitted with dyspnea secondary to pneumonia likely aspiration Aspiration pneumonia History of restrictive lung disease Status post recent bronchoscopy for secretion removal Continue supplemental oxygen to keep oxygen saturation greater than 90% Continue cefepime, Flagyl and vancomycin plan for MBSS today Suprapubic catheter dislodgement urology consultation for possible replacement Possible urinary tract infection May also be colonization secondary to super pubic catheter Paroxysmal atrial fibrillation/DVT History of IVC filter Continue warfarin Check PT INR daily History of paraplegia History of neurogenic bladder, has suprapubic catheter Hypothyroidism Continue levothyroxine History of sacral decubitus ulcer. Present on admission Wound care consultation Chronic anemia. At baseline. Continue to monitor. History of spinal cord injury, C5-C6. Continue baclofen. s/p colostomy placement. No acute issues. s/p PPM. DVT prophylaxis: Warfarin Attending Dr. Corona Code status: Full continue hospital stay for shortness on breath treatment secondary to pneumonia with supplemental oxygen, bronchodilator therapy and empiric IV antibiotic therapy. Quality Stroke Does the patient have a stroke diagnosis?: No VTE Prior VTE?: No VTE Risk Level:: Medical - moderate - high VTE Device Contraindication: Treatment Not Indicated VTE Drug Contraindication: N/A - Med Ordered
--- NOTE | 2023-12-05 09:57 | PM.DS ---
DS: Providers Provider Date of admission: 12/04/23 01:24 Primary care physician: Unknown Physician Consults: 12/04/23 13:38 Consult to Urology Routine Consulting Provider: [facility] Reason for consultation: leaking suprapubic catheter DS: Diagnosis Discharge Diagnosis (1) Pneumonia: Status: Acute (2) Mucus plugging of bronchi: Status: Acute DS: Summary Hospital Course Hospital Course: History and physical as per admitting provider. Denzel Quionnez is a 68 years old man with past medical history significant for tetraplegia due to C5-C7, neurogenic bladder status post suprapubic catheter, colostomy, sacral decubitus ulcer, IVC filter, paroxysmal atrial fibrillation on warfarin, pacemaker implantation and hypothyroidism was brought to the emergency department [facility] his [facility] due to worsening shortness of breath and cough. The patient was discharged 2 days ago with diagnosis of acute hypoxic respiratory failure due to pneumonia with mucus plugs with concern for aspiration/dysphagia. During this hospitalization he was treated with IV antibiotics, Zosyn long toileting, physiotherapy, incentive spirometry and underwent a bronchoscopy to suction secretions. He was also seen by speech therapy who started him on regular diet. He was discharged to complete a course of Augmentin and doxycycline. Did not report any headache, abdominal pain, nausea, vomiting, fever or chills. Per EMS, he was found to have an oxygen saturation 91% on room air and was placed on supplemental oxygen via nasal cannula (2L/min). In the ED, he was found to have normal vital signs. He is currently on 2 L supplemental oxygen via nasal cannula. Blood workup did not show leukocytosis. There is very minimal lactic acidosis that resolved. Hemoglobin is at baseline. There are no electrolyte imbalances. INR is 1.8. BNP is 108. Urinalysis consistent with urinary tract infection. Chest, abdomen pelvis CT scan showed progression of the left lower lobe consolidation and endoluminal bronchial opacification (L>R, seen with aspiration pneumonia), no acute intracranial abnormality or intrapelvic abnormality, nonobstructive punctuated renal calculi, no hydronephrosis or hydroureter, suprapubic catheter in the bladder with possible superimposed cystitis changes, postop seroma, cardiomegaly with [id number] size pericardial effusion, unchanged. ECG shows ventricular paced rhythm, heart rate 61 bpm. ED tx: Flagyl 500 mg IV, NS 500 mL bolus, DuoNeb 3 ml neb, IV, vancomycin 2 g IV, cefepime 1 g IV 68-year-old man with a history of paraplegia treated for aspiration pneumonia. Patient has a history of restrictive lung disease and history of aspiration pneumonia as well. Recently had a bronchoscopy for secretion removal. He was treated with IV cefepime, Flagyl and vancomycin. Had MBSS++++. Patient has been 93% or greater on room air. Plan is for patient to transfer back to [facility]. Practice aspiration precautions during meals There was a question of urinary tract infection, likely related to colonization from suprapubic catheter Paroxysmal atrial fibrillation status DVT. History of IVC filter, continue warfarin History of paraplegia. Neurogenic bladder has suprapubic catheter, was seen by Urology for catheter replacement to #20 also started on Hiprex and oxybutynin Hypothyroidism. Continue levothyroxine History of sacral decubitus ulcer. Present on admission Chronic anemia. At baseline. Above transfusion threshold during hospitalization History of spinal cord injury. Continue baclofen. Colostomy. No acute issues during hospitalization Physical Exam Vital Signs: Vital Signs: Last Vital Signs Temp 97.8 F 12/05/23 08:00 Pulse 60 12/05/23 08:00 Resp 18 12/05/23 08:00 BP 144/83 H 12/05/23 08:00 Pulse Ox 93 12/05/23 08:00 O2 Del Method Room Air 12/05/23 08:00 O2 Flow Rate 4 12/04/23 07:03 Oxygen Flow Rate 2 12/03/23 21:14 BMI result Body Mass Index 28.0 DS: Data Data Completed and Pending Labs on day of discharge: Laboratory Results - last 24 hr 12/04/23 12/05/23 12:47 06:19 WBC 6.2 RBC 3.76 L Hgb 11.3 L Hct 35.5 L MCV 94.4 MCH 30.1 MCHC 31.8 RDW 16.0 Plt Count 182 MPV 8.8 L Absolute Nucleated RBC 0.000 Nucleated RBC % (auto) 0.0 Hold Purple Top SEE NOTE Sodium 142 Potassium 3.8 Chloride 106 Carbon Dioxide 27 Anion Gap 13 BUN 17 H Creatinine 0.57 0.58 Estim Creat Clear Calc 166.8 163.9 Estimated GFR > 60 > 60 Random Glucose 101 Calcium 8.2 L Preliminary micro results at discharge 12/03/23 21:51 Blood Culture - Preliminary Blood - Venous No growth after 24 hours. 12/03/23 21:51 Blood Culture - Preliminary Blood - Venous No growth after 24 hours. Discharge Plan Discharge Patient Disposition: Xfer Other Discharge Diagnosis: Aspiration pneumonia Discharge Medications: Continued ascorbic acid (vitamin C) 500 mg Tablet 500 mg PO DAILY baclofen 10 mg tablet 20 mg PO TID@0900,1300,1700 baclofen 10 mg tablet 40 mg PO BEDTIME docusate sodium [Colace] 100 mg Capsule 200 mg PO BEDTIME calcitriol 0.25 mcg capsule 0.25 mcg PO DAILY gabapentin 600 mg tablet 600 mg PO BEDTIME furosemide 20 mg tablet 20 mg PO DAILY gabapentin 100 mg capsule 100 mg PO BID@0800,1400 dicyclomine 10 mg capsule 10 mg PO QID Rx Instructions: with meals midodrine 10 mg Tablet 10 mg PO TIDWM melatonin 10 mg Tablet 10 mg PO BEDTIME cholecalciferol (vitamin D3) 1,250 mcg (50,000 unit) Tablet 1,250 mcg PO QMONTH Rx Instructions: every month on the tramadol 50 mg Tablet 50 mg PO Q8H PRN (Reason: Pain, Moderate(Pain Scale 4-6)) Qty: 14 0RF warfarin 4 mg tablet 4 mg PO MOTUWEFRSA@2000 trazodone 150 mg tablet 75 mg PO BEDTIME levothyroxine 125 mcg tablet 125 mcg PO DAILY@0630 nystatin 100,000 unit/gram cream 1 appl topical BID Rx Instructions: use with powder, apply to buttocks nystatin [Nyamyc] 100,000 unit/gram powder 1 appl topical BID Rx Instructions: use with cream, apply to buttocks warfarin 1 mg tablet 3 mg PO SUTH@2000 [id number]-[id number]-calcium-mins 9 mg iron-400 mcg tablet 1 tab PO DAILY acetaminophen 325 mg tablet 650 mg PO Q6H PRN (Reason: headache/fever/bodyaches) Rx Instructions: For 10 days then as needed guaifenesin [Mucinex] 600 mg Tablet Extended Release 12hr 600 mg PO BID Qty: 20 0RF ferrous sulfate [FeroSul] 325 mg (65 mg iron) tablet 325 mg PO DAILY sennosides [senna] 8.6 mg Tablet 8.6 mg PO DAILY PRN (Reason: Constipation) miconazole nitrate 2 % Cream 1 appl TOPICAL BID PRN (Reason: fungal rash) Discontinued doxycycline monohydrate 100 mg capsule 100 mg PO BID Qty: 14 0RF Rx Instructions: End Date 12-08-23 amoxicillin-pot clavulanate 875-125 mg tablet 1 tab PO BID Qty: 14 0RF Rx Instructions: END DATE 12-08-23 Diet: Advance to usual diet Activity on Discharge: As tolerated Stand Alone Forms: Patient Portal Discharge page Print Language: Arabic Care Plan Goals: Aspiration precautions: Position upright before and after meals for at least 30 minutes, supervision during meals, small bites, avoid large pieces of food alternate liquids with solids Health Concerns: Aspiration pneumonia Plan of Treatment: Follow-up with primary care provider as needed Take all medications as prescribed Assessment: See discharge summary
[2023-12-05 10:28] LABS: INTERNATIONAL NORM RATIO 2.1 (0.9-1.1); Prothrombin Time 25.1 SEC (11.1-13.3)
[2023-12-05 10:53] VITALS: BMI 28.0
--- NOTE | 2023-12-05 10:57 | MHC.CLN ---
PT WITH INCREASED NUTRITION RISK R/T PRESSURE INJURY DIET RX: REGULAR-APPROPRIATE PT RECEIVING ENSURE MAX BID TO PROMOTE WOUND HEALING SUPP PROVIDES 300KCALS, 60G PROTEIN MONITOR PO INTAKE AND ENCOURAGE SUPPLEMENTS SEE ALSO FULL CLINICAL NUTRITION ASSESSMENT
[2023-12-05 12:00] VITALS: BP 132/70; PULSE 72; RESP 18; TEMP 36.8; O2SAT 90
--- NOTE | 2023-12-05 12:25 | MHC.SL.IMP ---
Date of Plan of Treatment: 12/04/23 Onset of Symptoms/Illness: 11/28/23 Date Treatment Started: 12/04/23 Admitting Diagnosis: Dysphagia Primary Speech & Language Diagnosis: R13.12 Oropharyngeal Phase Dysphagia Reason for Today's Visit: [id number] Modified Barium Swallow Study Pre-evaluation Dietary Consistencies: Regular Pre-evaluation Liquid Consistency: Thin Pre-evaluation Medication Administration: Whole with Liquid Medical History: Chronic restrictive lung disease Pneumonia Urine retention Irreducible left inguinal hernia Autonomic dysfunction Hypothyroidism Hernia Atrial fibrillation Spasms of the hands or feet Spinal cord injury Oral Motor Exam Facial Symmetry: Normal for Patient Symmetrical Facial Movement: Oral-Facial Facial Miscellaneous Observations: Mouth Occlusion: Normal Oral-Facial Teeth Characteristics: Oral-Facial Teeth Miscellaneous Observation: Oral-Facial Lip Pucker Description: Oral-Facial Smile (Lips) Description: Oral-Facial Puff Cheeks Description: Oral-Facial Lip Miscellaneous Comment: Tongue Size: Normal Tongue Frenum Length: Tongue Excursion Description: Tongue Range of Movement Description: Tongue Speed of Movement Description: Tongue Strength of Movement (against opposing pressure): Tongue Movement Characteristics: Tongue Movement Miscellaneous Observation: Oral Expression Ability: No Impairment Is patient able to manage secretions?: Yes Is patient able to produce volitional cough?: Yes Food and Liquid Trials: Oral Impairment: Lip Closure: 1=Interlabial escape; no progression to anterior tip Oral Impairment: Tongue Control During Bolus Hold: 0=Cohesive bolus between tongue to palatal seal Oral Impairment: Bolus Preparation/Mastication: 0=Timely and efficient chewing and mashing Oral Impairment: Bolus Transport/Lingual Motion: 1= Delayed initiation of tongue motion Oral Impairment: Oral Residue: 2=Residue collection on oral structures Oral Impairment:Initiation of Pharyngeal Swallow: 1=Bolus head in valleculae Pharyngeal Impairment: Soft Palate Elevation: 0=No bolus between soft palate (SP)/pharyngeal wall (PW) Pharyngeal Impairment: Laryngeal Elevation: 0=Complete superior movement of thyroid cartilage (see description) Pharyngeal Impairment: Anterior Hyoid Excursion: 0=Complete anterior movement Pharyngeal Impairment: Epiglottic Movement: 1=Partial inversion Pharyngeal Impairment: Laryngeal Vestibular Closure:: 1=Incomplete: narrow column air/contrast in laryngeal vestibule Pharyngeal Impairment: Pharyngeal Stripping Wave: 0=Present: complete Pharyngeal Impairment: Pharyngeal Contraction: Did not test Pharyngeal Impairment: Pharyngoesophageal Segment Openin=Partial distention/partial duration: partial obstruction of flow Pharyngeal Impairment: Tongue Base (TB) Retraction: 2=Narrow column of contrast/air between TB and posterior PW Pharyngeal Impairment: Pharyngeal Residue: 2=Collection of residue within or on pharyngeal structures Pharyngeal Impairment: Esophageal Clearance Upright Position: Did not test Impressions and Recommendations Clinical Observations: Study Number: 1 Age: 68 Gender: Male MEDICAL HISTORY: COVID-19 Positive: No Current (pre-evaluation) Intake/Diet: Pre-Study Functional Oral Intake Scale (FOIS): 7- Total oral intake with no restrictions MBSImP ID: [id number] Results: Lip closure for intraoral bolus containment resulted in interlabial escape, without progression to the anterior lip. Tongue control during bolus hold maintained a cohesive bolus held between tongue to palate seal. Bolus preparation and mastication resulted in timely and efficient chewing and mashing. Bolus transport/lingual motion demonstrated delayed initiation of tongue motion. Oral residue was a collection on oral structures. Initiation of the pharyngeal swallow occurred when the bolus head was in the valleculae. Soft palate elevation resulted in no bolus between the soft palate and the pharyngeal wall. Laryngeal elevation demonstrated complete superior movement of the thyroid cartilage with complete approximation of the arytenoids to the epiglottic petiole. Anterior hyoid excursion demonstrated complete anterior movement. Epiglottic movement resulted in partial inversion. Laryngeal vestibular closure was incomplete, with a narrow column of air/contrast noted within the laryngeal vestibule at the height of the swallow. Pharyngeal stripping wave was present and complete. Pharyngeal contraction could not be determined due to logistical reasons not related to physiologic impairment. Pharyngoesophageal segment opening demonstrated partial distension/partial duration, with partial obstruction of bolus flow. Tongue base retraction allowed a narrow column of contrast or air between the retracted tongue base and the posterior pharyngeal wall. Pharyngeal residue was a collection of residue within or on pharyngeal structures. Esophageal clearance in the upright position could not be assessed due to logistical reasons not related to physiologic impairment. Oral Impairment Score: 4 Pharyngeal Impairment Score: 7 (absence of score, component 13) Esophageal Impairment Score: --- (absence of score, component 17) Laryngeal Penetration and Aspiration: Penetration was observed in today's study. Thin Contrast entered the airway, remained above the vocal folds, and was ejected from the airway. SUMMARY: Pt was administered Puree Solids and Regular Solids coated in Barium Paste. He was provided Thin Liquids via Spoon, Cup and Consecutive Straw Sips. No aspiration was observed on today's study. Multiple episodes of deep penetration to the vocal folds that was spontaneously clear with noted with Thin Liquids. Puree solids and Regular solids resulted in moderate oral and pharyngeal residue requiring verbal cues to swallow twice, as well as small sips of Thin Liquids to assist with oropharyngeal clearance. PLAN: Intake Recommendations: Post-Study Functional Oral Intake Scale (FOIS): 7- Total oral intake with no restrictions Recommend the following behavioral modifications as well: - Sit upright before and after meals. - Small bites/sips. - Reduced rate of ingestion time. - Swallow twice with solids. - Alternate bites with sips. - Avoid straws and consecutive sips. Recommend he work with an GAS DISPATCHER at his next level of care to make appropriate changes to his house diet and reinforce behavioral recommendations from today's study. Liquid Intake Recommendation: Thin Liquid Intake Strategies: No Straws Double Swallow Dietary Recommendations: Regular Medication Administration: Whole with Puree Please contact the pharmacy regarding appropriate crushable or liquid drug formulations that are available whenever modified delivery is recommended. Compensatory Strategies Recommended: Sitting Upright (90 deg) Double Swallow No Straw Liquids from Cup Small Bites and Sips Alternate Liquids/Solids Rate of Ingestion Change Avoid Specific Foods Supervision during eating and or drinking: Intermittent Supervision Recommended Treatments: Compens. Strategy Educat. Recommendation for Speech Therapy: Speech Therapy through Rehab Facility Frequency/Duration: Daily Date Range for Service Requested: Timeline to reassess: PRN Dietitian Assistant Clinician/Clinical Fellow: No Supervisory Statement: N/A Speech Language Pathologist: Shantanu Flores M.A., [facility]-GAS DISPATCHER
[2023-12-05] MEDS: Nystatin Powder 15 GM BOTTLE 1 APPL TOPICAL ×2 (12:42→20:11)
[2023-12-05 12:54] LABS: Vancomycin Random 19.8 mcg/mL (15-20)
--- NOTE | 2023-12-05 15:49 | PM.UROCN ---
History of Present Illness Consult details Consult date: 12/05/23 Requesting physician: Elvia Murillo Narrative: Neurogenic bladder Suprapubic tube leaking SP tube changed to 20 fr, >600 mL drained from bladder after placement of new catheter, the tip of the old catheter was clogged Pt lives in retirement. Recomment q4 week change with VNA and methanamine 1 gm bid Review of Systems Review of Systems: 10 point ROS negative other than stated in HPI PMFSH Past Medical History Medical History Chronic restrictive lung disease Pneumonia Urine retention Irreducible left inguinal hernia Autonomic dysfunction Hypothyroidism Hernia Atrial fibrillation Spasms of the hands or feet Spinal cord injury Family History Family History Sister Diabetes mellitus Surgical History Surgical History S/P tendon repair H/O hemorrhoidectomy S/P IVC filter H/O hernia repair H/O thyroidectomy Social History Social History Household Members: Other Household Members Other:: retirement Housing: House Housing Other:: retirement [place] Do you presently have visiting nurse or other home services: Yes Alcohol intake: former Comment: low extremity paralysis Patient Tobacco Use Status: Never used Tobacco Advance Directives Date on File: 01/09/23 service: No Meds Allergies Allergy/AdvReac Type Severity Reaction Status Date / Time dicloxacillin [From DYNAPEN] Allergy Unknown Unknown Verified 12/03/23 21:18 ofloxacin [From FLOXIN] AdvReac Intermediate Abdominal Verified 12/03/23 21:18 Pain penicillin V AdvReac Intermediate Abdominal Verified 12/03/23 21:18 Pain Active Medications: Current Medications Acetaminophen (Acetaminophen 325 Mg Tablet) 975 mg PO Q6H PRN PRN Reason: Pain, Mild (Pain Scale 1-3), fever or headache Albuterol/Ipratropium (Albuterol/Iprat 2.5/0.5mg 3 Ml Ampul.Neb) 3 ml INHALE Q4H PRN PRN Reason: Shortness of Breath/Wheezing Ascorbic Acid (Ascorbic Acid 500 Mg Tablet) 500 mg PO DAILY [facility] Last Admin: 12/05/23 07:56 Dose: 500 mg Baclofen (Baclofen 20 Mg Tablet) 20 mg PO TID@0900,1300,1700 [facility] Last Admin: 12/05/23 12:39 Dose: 20 mg Baclofen (Baclofen 20 Mg Tablet) 40 mg PO BEDTIME [facility] Calcitriol (Calcitriol 0.25 Mcg Capsule) 0.25 mcg PO DAILY [facility] Last Admin: 12/05/23 08:03 Dose: 0.25 mcg Dicyclomine HCl (Dicyclomine Hcl 10 Mg Capsule) 10 mg PO QID [facility] Last Admin: 12/05/23 12:39 Dose: 10 mg Docusate Sodium (Docusate Sodium 100 Mg Capsule) 200 mg PO BEDTIME [facility]IN Ferrous Sulfate (Ferrous Sulfate 324 Mg Tablet.Dr) 324 mg PO DAILY [facility] Last Admin: 12/05/23 08:11 Dose: 324 mg Furosemide (Furosemide 20 Mg Tablet) 20 mg PO DAILY [facility]; Protocol Last Admin: 12/05/23 07:53 Dose: 20 mg Gabapentin (Gabapentin 100 Mg Capsule) 100 mg PO BID@0800,1400 [facility] Last Admin: 12/05/23 14:36 Dose: 100 mg Gabapentin (Gabapentin 600 Mg Tablet) 600 mg PO BEDTIME [facility] Guaifenesin (Guaifenesin La 600 Mg Tab.Er.12h) 600 mg PO BID [facility] Last Admin: 12/05/23 07:55 Dose: 600 mg Metronidazole (Flagyl) 500 mg in 100 mls @ 100 mls/hr IV Q8H [facility] Last Admin: 12/05/23 15:16 Dose: 100 mls/hr Cefepime HCl 1 gm/ Sodium (Chloride) 50 mls @ 100 mls/hr IV Q8H [facility] Last Infusion: 12/05/23 15:27 Dose: Infused Vancomycin HCl 1,000 mg/ (Sodium Chloride) 270 mls @ 270 mls/hr IV Q12H [facility] Levothyroxine Sodium (Levothyroxine Sodium 125 Mcg Tablet) 125 mcg PO DAILY@0630 [facility] Melatonin (Melatonin 3 Mg Tablet) 9 mg PO BEDTIME [facility] Methenamine Hippurate (Methenamine Hippurate 1 Gm Tablet) 1 gm PO BID [facility] Midodrine (Midodrine Hcl 10 Mg Tablet) 10 mg PO TIDWM [facility] Last Admin: 12/05/23 12:39 Dose: 10 mg Multivitamins/Vitamin C (Multivitamin Tablet) 1 tab PO DAILY [facility] Last Admin: 12/05/23 07:55 Dose: 1 tab Nystatin (Nystatin Powder 15 Gm Bottle) 1 appl TOPICAL BID [facility]; Protocol Last Admin: 12/05/23 12:42 Dose: 1 appl Oxybutynin Chloride (Oxybutynin Chloride Er 5 Mg Tab.Er.24) 10 mg PO DAILY [facility] Pharmacy Consult (Consult Rx Vancomycin Dosing) 1 each MISCELLANE DAILY PRN PRN Reason: Consult order Senna (Sennosides 8.6 Mg Tablet) 8.6 mg PO DAILY PRN PRN Reason: Constipation Sodium Chloride (0.9 % Sodium Chloride Flush 3 Ml Syringe) 3 ml IVFLUSH QSHIFT [facility] Last Admin: 12/05/23 15:17 Dose: 3 ml Tramadol HCl (Tramadol Hcl 50 Mg Tablet) 50 mg PO Q8H PRN PRN Reason: Pain, Moderate(Pain Scale 4-6) Trazodone HCl (Trazodone Hcl 25 Mg Halftab) 75 mg PO BEDTIME [facility] Warfarin Sodium (Warfarin Sodium 3 Mg Tablet) 3 mg PO SuTh@1800 [facility] Warfarin Sodium (Warfarin Sodium 4 Mg Tablet) 4 mg PO MoTuWeFrSa@1800 [facility] Home Medications ?Medication ?Instructions ?Recorded ?Confirmed ?Last Taken ?Type ascorbic acid (vitamin C) 500 mg 500 mg PO DAILY 03/23/20 12/04/23 03/23/20 History tablet baclofen 10 mg tablet 20 mg PO TID@0900,1300,1700 03/23/20 12/04/23 03/23/20 History baclofen 10 mg tablet 40 mg PO BEDTIME 03/23/20 12/04/23 03/23/20 History calcitriol 0.25 mcg capsule 0.25 mcg PO DAILY 03/23/20 12/04/23 03/23/20 History docusate sodium 100 mg capsule 200 mg PO BEDTIME 03/23/20 12/04/23 03/23/20 History (Colace) cholecalciferol (vitamin D3) 1,250 1,250 mcg PO QMONTH 01/09/23 12/04/23 11/23/23 History mcg (50,000 unit) tablet dicyclomine 10 mg capsule 10 mg PO QID 01/09/23 12/04/23 Unknown History furosemide 20 mg tablet 20 mg PO DAILY 01/09/23 12/04/23 Unknown History gabapentin 100 mg capsule 100 mg PO BID@0800,1400 01/09/23 12/04/23 Unknown History gabapentin 600 mg tablet 600 mg PO BEDTIME 01/09/23 12/04/23 Unknown History melatonin 10 mg tablet 10 mg PO BEDTIME Sleep 01/09/23 12/04/23 Unknown History midodrine 10 mg tablet 10 mg PO TIDWM 01/09/23 12/04/23 Unknown History acetaminophen 325 mg tablet 650 mg PO Q6H PRN 11/26/23 12/04/23 Unknown History headache/fever/bodyaches levothyroxine 125 mcg tablet 125 mcg PO DAILY@0630 11/26/23 12/04/23 Unknown History multivitamin-iron 9 mg-folic acid 1 tab PO DAILY 11/26/23 12/04/23 Unknown History 400 mcg-calcium and minerals tablet nystatin 100,000 unit/gram topical 1 appl topical BID 11/26/23 12/04/23 Unknown History cream nystatin 100,000 unit/gram topical 1 appl topical BID Rash 11/26/23 12/04/23 Unknown History powder (Nyamyc) trazodone 150 mg tablet 75 mg PO BEDTIME 11/26/23 12/04/23 Unknown History warfarin 1 mg tablet 3 mg PO SUTH@199911/26/23 12/04/23 Unknown History warfarin 4 mg tablet 4 mg PO MOTUWEFRSA@199911/26/23 12/04/23 11/25/23 History ferrous sulfate 325 mg (65 mg 325 mg PO DAILY 12/04/23 12/04/23 Unknown History iron) tablet (FeroSul) miconazole nitrate 2 % topical 1 appl topical BID PRN fungal rash 12/04/23 12/04/23 Unknown History cream sennosides 8.6 mg tablet (senna) 8.6 mg PO DAILY PRN Constipation 12/04/23 12/04/23 Unknown History Physical Exam Vital Signs: Vital Signs: Last Vital Signs Temp 98.3 F 12/05/23 12:00 Pulse 72 12/05/23 12:00 Resp 18 12/05/23 12:00 BP 132/70 12/05/23 12:00 Pulse Ox 90 L 12/05/23 12:00 O2 Del Method Room Air 12/05/23 12:00 O2 Flow Rate 4 12/04/23 07:03 Oxygen Flow Rate 2 12/03/23 21:14 BMI result Body Mass Index 28.0 Const: General: no acute distress and well developed Orientation/consciousness: patient oriented x3 HEENT: Head: Yes normocephalic and Yes atraumatic Eyes: Conjunctivae: conjunctivae normal Neck: Neck: Yes normal visual inspection Chest: Chest palpation & inspection: normal inspection of the chest Resp: Effort & Inspection: normal respiratory effort Cardio: Rate: regular rate GI: Inspection: Yes normal to inspection : Other: suprapubic area, no cellulitis Neuro: General: patient oriented x3 Psych: Appearance: grossly normal Affect: normal affect Results Labs 12/04/23 12:47 12/06/23 06:27 Labs: Abnormal lab results 12/05/23 Range/Units 10:11 PT 25.1 H (11.1-13.3) SEC INR 2.1 H (0.9-1.1) BMP 12/05/23 06:19 Creatinine 0.58 All other labs normal. Assessment and Plan (1) Neurogenic bladder: Status: Acute (2) Chronic suprapubic catheter: Status: Acute Plan Recommend q 4 week SP tube catheter changes with VNA Consideration for anticholinergic Methanamine 1 gm bid Procedures Date of Service Date of Service: 12/06/23 Catheter Insertion (Urinary) Date of insertion: 12/05/23 Replacement of catheter present on admission: Yes Reason for placing: Other (Neurogenic bladder) Estimated amount of urine (mLs): 600 Antiseptic solution prep: Povidone-Iodine Topical anesthesia used: No Catheter type/location: Suprapubic Size (Martiniquais): 20 Catheter balloon size (mL): 10 Catheter balloon amount: 15 Results: successfully catheterized-immediate flow Procedure performed: without complications
[2023-12-05 16:00] VITALS: BP 144/66; PULSE 62; RESP 20; TEMP 37.2; O2SAT 92
[2023-12-05] MEDS: Warfarin Sodium 4 MG TABLET PO (18:20)
[2023-12-05] MEDS: vancomycin HCL 1,000 MG in 0.9 % Sodium Chloride 250 ML 270 MG IV (19:52)
[2023-12-05 20:00] VITALS: BP 166/91; PULSE 64; RESP 20; TEMP 37.1; O2SAT 92
[2023-12-05] MEDS: Methenamine Hippurate 1 GM TABLET PO (20:10)
[2023-12-05] MEDS: Docusate Sodium 100 MG CAPSULE 200 MG PO (20:10)
[2023-12-05] MEDS: Baclofen 20 MG TABLET 40 MG PO (20:11)
[2023-12-05] MEDS: Gabapentin 600 MG TABLET PO (22:42)
[2023-12-05] MEDS: traZODone HCL 25 MG HALFTAB 75 MG PO (22:42)
[2023-12-05] MEDS: Melatonin 3 MG TABLET 9 MG PO (22:42)
[2023-12-06] VITALS: BP 127/68; PULSE 66; RESP 20; TEMP 36.9; O2SAT 93
[2023-12-06] MEDS: metroNIDAZOLE/NS 500 MG/100 ML PIGGYBACK 100 MG IV ×2 (00:48→07:41)
[2023-12-06 04:00] VITALS: BP 105/66; PULSE 60; RESP 20; TEMP 36.7; O2SAT 92
--- NOTE | 2023-12-06 04:44 | HO.SKINPHOTO ---
Addendum entered by Deja Kimball RN 12/06/23 04:46: Left foot found to have dressing covering the left heel. Dressing removed and skin photo obtained. Left foot with very dry skin. No open areas noted. Original Note: Location: Category: Stage: Length: Width: Depth: cm Location: Category: Stage: Length: Width: Depth: cm Location: Category: Stage: Length: Width: Depth: cm Location: Category: Stage: Length: Width: Depth: cm Location: Category: Stage: Length: Width: Depth: cm Location: Category: Stage: Length: Width: Depth: cm
[2023-12-06] MEDS: Levothyroxine Sodium 125 MCG TABLET PO (05:01)
[2023-12-06] MEDS: cefEPime HCl 1 GM in 0.9 % Sodium Chloride 50 ML IV (05:01)
[2023-12-06 07:34] LABS: Prothrombin Time 24.2 SEC (11.1-13.3)
[2023-12-06] MEDS: 0.9 % Sodium Chloride Flush 3 ML SYRINGE IVFLUSH (07:42)
[2023-12-06] MEDS: oxyBUTYnin chloride ER 5 MG TAB.ER.24 10 MG PO (07:43)
[2023-12-06 07:44] LABS: Creatinine Clr Calc Pharmacy 161.2; Estimated Glomerular Filt Rate > 60
[2023-12-06] MEDS: guaiFENesin LA 600 MG TAB.ER.12H PO (07:44)
[2023-12-06] MEDS: Midodrine HCl 10 MG TABLET PO ×2 (07:44→11:49)
[2023-12-06] MEDS: Dicyclomine HCl 10 MG CAPSULE PO ×2 (07:45→11:49)
[2023-12-06] MEDS: Furosemide 20 MG TABLET PO (07:45)
[2023-12-06] MEDS: Gabapentin 100 MG CAPSULE PO (07:46)
[2023-12-06] MEDS: Methenamine Hippurate 1 GM TABLET PO (07:46)
[2023-12-06] MEDS: Multivitamin TABLET 1 TAB PO (07:47)
[2023-12-06] MEDS: Baclofen 20 MG TABLET PO ×2 (07:47→11:49)
[2023-12-06] MEDS: calcitrioL 0.25 MCG CAPSULE PO (07:47)
[2023-12-06] MEDS: Ascorbic Acid 500 MG TABLET PO (07:48)
[2023-12-06] MEDS: Ferrous Sulfate 324 MG TABLET.DR PO (07:48)
[2023-12-06 07:58] VITALS: BP 116/61; PULSE 62; RESP 20; TEMP 36.8; O2SAT 94
[2023-12-06] MEDS: vancomycin HCL 1,000 MG in 0.9 % Sodium Chloride 250 ML 270 MG IV (09:08)
--- NOTE | 2023-12-06 09:12 | MHC.CLN ---
F/U PT WITH INCREASED NUTRITION RISK R/T PRESSURE INJURY DIET RX: REGULAR-APPROPRIATE PT RECEIVING ENSURE MAX BID TO PROMOTE WOUND HEALING SUPP PROVIDES 300KCALS, 60G PROTEIN MONITOR PO INTAKE AND ENCOURAGE SUPPLEMENTS
[2023-12-06] MEDS: Nystatin Powder 15 GM BOTTLE 1 APPL TOPICAL (09:15)
[2023-12-06 11:54] VITALS: BP 104/62; PULSE 62; RESP 20; TEMP 36.6; O2SAT 95
--- NOTE | 2023-12-06 11:54 | PM.DS ---
DS: Providers Provider Date of Service: 12/06/23 Date of admission: 12/04/23 01:24 Primary care physician: Unknown Physician Consults: 12/04/23 13:38 Consult to Urology Routine Consulting Provider: [facility] Reason for consultation: leaking suprapubic catheter 12/06/23 04:47 Consult to Wound Care Routine Reason for consultation: Wounds to buttock and left heel Has provider been notified: Yes DS: Diagnosis Discharge Diagnosis (1) Neurogenic bladder: Status: Acute (2) Chronic suprapubic catheter: Status: Acute DS: Summary Hospital Course Hospital Course: from initial hpi: Denzel Quinonez is a 68 years old man with past medical history significant for paraplegia due to C5-C7, neurogenic bladder status post suprapubic catheter, colostomy, sacral decubitus ulcer, IVC filter, paroxysmal atrial fibrillation on warfarin, pacemaker implantation and hypothyroidism was brought to the emergency department from his retirement due to worsening shortness of breath and cough. The patient was discharged 2 days ago with diagnosis of acute hypoxic respiratory failure due to pneumonia with mucus plugs with concern for aspiration/dysphagia. During this hospitalization he was treated with IV antibiotics, Zosyn long toileting, physiotherapy, incentive spirometry and underwent a bronchoscopy to suction secretions. He was also seen by speech therapy who started him on regular diet. He was discharged to complete a course of Augmentin and doxycycline. Did not report any headache, abdominal pain, nausea, vomiting, fever or chills. Per EMS, he was found to have an oxygen saturation 91% on room air and was placed on supplemental oxygen via nasal cannula (2L/min). In the ED, he was found to have normal vital signs. He is currently on 2 L supplemental oxygen via nasal cannula. Blood workup did not show leukocytosis. There is very minimal lactic acidosis that resolved. Hemoglobin is at baseline. There are no electrolyte imbalances. INR is 1.8. BNP is 108. Urinalysis consistent with urinary tract infection. Chest, abdomen pelvis CT scan showed progression of the left lower lobe consolidation and endoluminal bronchial opacification (L>R, seen with aspiration pneumonia), no acute intracranial abnormality or intrapelvic abnormality, nonobstructive punctuated renal calculi, no hydronephrosis or hydroureter, suprapubic catheter in the bladder with possible superimposed cystitis changes, postop seroma, cardiomegaly with [id number] size pericardial effusion, unchanged. ECG shows ventricular paced rhythm, heart rate 61 bpm. ED tx: Flagyl 500 mg IV, NS 500 mL bolus, DuoNeb 3 ml neb, IV, vancomycin 2 g IV, cefepime 1 g IV hospital course: Patient was admitted for acute hypoxic respiratory failure due to recurrent aspiration pneumonia/pneumonitis. He was put on broad-spectrum antibiotics with vancomycin, cefepime, Flagyl. Blood cultures were negative. Patient was not septic. Underwent modified barium swallow, recommendations were for regular solids and thin liquids but to follow up with speech therapy and to continue aspiration precautions. Patient was weaned off oxygen and is feeling much better. He will continue with flutter valve to help loosen mucus. Patient has chronic suprapubic catheter due to paraplegia and neurogenic bladder He was seen by Urology who exchange catheter and recommended starting oxybutynin. For paroxysmal atrial fibrillation and history of DVT he was continued on Coumadin. For hypothyroidism he was continued Synthroid. For history of sacral decubitus ulcer he was seen by wound care, recommendations can be found in discharge instructions. Patient is now feeling much better, on room air will be discharged to retirement on 1 more week of Augmentin and doxycycline. Time Attestation Discharge Coordination Time (in mins): 37 Quality: Safe Use of Opioids Does Pt have an Active Cancer Diagnosis on the Problem List?: No Quality: Stroke Does the patient have a stroke diagnosis?: No Physical Exam Vital Signs: Vital Signs: Last Vital Signs Temp 98.2 F 12/06/23 07:58 Pulse 62 12/06/23 07:58 Resp 20 12/06/23 07:58 BP 116/61 12/06/23 07:58 Pulse Ox 94 12/06/23 07:58 O2 Del Method Room Air 12/06/23 07:58 O2 Flow Rate 4 12/04/23 07:03 Oxygen Flow Rate 2 12/03/23 21:14 BMI result Body Mass Index 28.0 Const: General: no acute distress and well developed Orientation/consciousness: patient oriented x3 HEENT: Head: Yes normocephalic and Yes atraumatic Eyes: Conjunctivae: conjunctivae normal Neck: Neck: Yes normal visual inspection Chest: Chest palpation & inspection: normal inspection of the chest Resp: Effort & Inspection: normal respiratory effort Cardio: Rate: regular rate GI: Inspection: Yes normal to inspection : Other: suprapubic area, no cellulitis Neuro: General: patient oriented x3 Psych: Appearance: grossly normal Affect: normal affect DS: Data Data Completed and Pending Completed studies during hospitalization [Text1]: Procedures Change Drainage Device in Bladder, External Approach (11/26/23) Labs on day of discharge: Laboratory Results - last 24 hr 12/05/23 12/06/23 12:26 06:27 Hold Purple Top SEE NOTE PT 24.2 H INR 2.0 H Creatinine 0.59 Estim Creat Clear Calc 161.2 Estimated GFR > 60 Random Vancomycin 19.8 Preliminary micro results at discharge 12/03/23 21:51 Blood Culture - Preliminary Blood - Venous No growth after 48 hours. 12/03/23 21:51 Blood Culture - Preliminary Blood - Venous No growth after 48 hours. Discharge Plan Discharge Anticipated Discharge Date/Time: 12/06/23 11:49 Patient Disposition: Xfer Other Discharge Diagnosis: Aspiration pneumonia Discharge Medications: New methenamine hippurate 1 gram Tablet 1 g PO BID Qty: 180 0RF oxybutynin chloride 5 mg Tablet Extended Release 24hr 10 mg PO DAILY Qty: 90 0RF Continued ascorbic acid (vitamin C) 500 mg Tablet 500 mg PO DAILY baclofen 10 mg tablet 20 mg PO TID@0900,1300,1700 baclofen 10 mg tablet 40 mg PO BEDTIME docusate sodium [Colace] 100 mg Capsule 200 mg PO BEDTIME calcitriol 0.25 mcg capsule 0.25 mcg PO DAILY gabapentin 600 mg tablet 600 mg PO BEDTIME furosemide 20 mg tablet 20 mg PO DAILY gabapentin 100 mg capsule 100 mg PO BID@0800,1400 dicyclomine 10 mg capsule 10 mg PO QID Rx Instructions: with meals midodrine 10 mg Tablet 10 mg PO TIDWM melatonin 10 mg Tablet 10 mg PO BEDTIME cholecalciferol (vitamin D3) 1,250 mcg (50,000 unit) Tablet 1,250 mcg PO QMONTH Rx Instructions: every month on the tramadol 50 mg Tablet 50 mg PO Q8H PRN (Reason: Pain, Moderate(Pain Scale 4-6)) Qty: 14 0RF warfarin 4 mg tablet 4 mg PO MOTUWEFRSA@2000 trazodone 150 mg tablet 75 mg PO BEDTIME levothyroxine 125 mcg tablet 125 mcg PO DAILY@0630 nystatin 100,000 unit/gram cream 1 appl topical BID Rx Instructions: use with powder, apply to buttocks nystatin [Nyamyc] 100,000 unit/gram powder 1 appl topical BID Rx Instructions: use with cream, apply to buttocks warfarin 1 mg tablet 3 mg PO SUTH@2000 [id number]-vytt-[id number]-calcium-mins 9 mg iron-400 mcg tablet 1 tab PO DAILY acetaminophen 325 mg tablet 650 mg PO Q6H PRN (Reason: headache/fever/bodyaches) Rx Instructions: For 10 days then as needed guaifenesin [Mucinex] 600 mg Tablet Extended Release 12hr 600 mg PO BID Qty: 20 0RF ferrous sulfate [FeroSul] 325 mg (65 mg iron) tablet 325 mg PO DAILY sennosides [senna] 8.6 mg Tablet 8.6 mg PO DAILY PRN (Reason: Constipation) miconazole nitrate 2 % Cream 1 appl TOPICAL BID PRN (Reason: fungal rash) doxycycline monohydrate 100 mg capsule 100 mg PO BID Qty: 14 0RF Rx Instructions: End Date 12-08-23 amoxicillin-pot clavulanate 875-125 mg tablet 1 tab PO BID Qty: 14 0RF Rx Instructions: END DATE 12-08-23 Discharge Orders: Discharge Order (Routine); Ordered 12/06/23 Ordered By: Conrad Baig Diet: Advance to usual diet Activity on Discharge: As tolerated Stand Alone Forms: Patient Portal Discharge page Print Language: Norwegian Care Plan Goals: Aspiration precautions: Position upright before and after meals for at least 30 minutes, supervision during meals, small bites, avoid large pieces of food alternate liquids with solids Health Concerns: Aspiration pneumonia Plan of Treatment: flutter valve to help loosen mucus, aspiration precautions Take all medications as prescribed follow up with TEST CONDUCTOR Recommend the following behavioral modifications as well: - Sit upright before and after meals. - Small bites/sips. - Reduced rate of ingestion time. - Swallow twice with solids. - Alternate bites with sips. - Avoid straws and consecutive sips. Assessment: See discharge summary
--- NOTE | 2023-12-06 12:13 | MHC.CM.PN ---
Per MD, Patient is medically cleared for dc to home today ([facility] to [facility] will transport Patient home today at 2:30PM. CM has arranged dc with [facility] Rep/Bill @ [phone], and at bedside.Last IMM addressed on 12/04/2023. indicated that he will be speaking with Sister/HCP/Ifeanyi.
--- NOTE | 2023-12-06 12:25 | MHC.SLORD ---
Speech Language Pathology Order Status: [facility] RN Bill had questions about MBSS. VIDEO GAME PROGRAMMER provided education to [facility] RN regarding results and recommendations based on yesterday's MBSS.
--- NOTE | 2023-12-06 13:35 | HO.WOUND ---
Wound Consult:Initial 68yr old Male? admitted to [facility] on 12/04/23 - See progress notes and H&P for detailed history.? Wound consult placed for Left heel and buttock POA.? Patient agreeable to assessment and photo documentation.? He is a paraplegic at baseline and wheelchair for mobility. Treats at the outpt wound clinic and has previous injury left heel, coccyx, and Ischium. The patient was recently discharged see chart for details. Patient should continue to follow up with outpt wound clinic at time of discharge. Ostomy pouch assessed and intact and adhered to abdomen no leaking noted. Stool continues to be pasty formed at todays assessment. Right Great Toe - Suspect DTI - intact nonblanchable tissue Right Plantar suspect resolving DTI - intact tissue Right Heel - stage 1 POA Left Dorsal foot Left Heel Left Heel Etiology: Deep tissue injury - ?Present on Admission Wound bed - dark purple nonblanchable tissue - irregular patterns noted areas of some partial thickness tissue loss Periwound: scar tissue noted, dry scaling tissue Goals of Treatment: ? Heel protector boots in place - Foam dressing in place Left anterior Foot Etiology: Deep tissue injury - ?Present on Admission Wound bed - red purple maroon nonblanchable tissue - irregular patterns noted areas of some partial thickness tissue loss Periwound: dry scaling tissue Goals of Treatment: ? Foam dressing to allow for moist wound healing Patient reports he is in a half-way and spending most of his day sitting in his wheelchair, He reports he does have a specialty cushion but since he has an ostomy and suprapubic cath he is only cleaned once a day. He was educated his buttock coccyx and posterior thighs and scrotum shows significant signs of chronic MASD (Moisture Associated Skin Damage). It is unclear where the moisture is originating from suspect his penis or leaking from the suprapubic cath site, SPC was changed out this admission. Coccyx Etiology: ?Stage 3 Pressure Injury ?Present on Admission Goals of Treatment: ? Triad to allow for moist wound healing and to protect from friction and moisture Buttock posterior thighs, scrotum and bilateral groin - MASD (Moisture Associated Skin Damage) - Triad to protect from moisture and friction. Recommendations: 1. Turn and Reposition every 2 hours and as needed for patient comfort.? Use pillows or wedges to support off loading positions. Use wedges for off loading. 2. Off Load all bony prominences with use of pillows and heel boots if needed.? Apply Preventative foams where needed. ? 3. Monitor for incontinence and moisture control, use barrier creams when needed for prevention and treatment. 4. Provide adequate and supplemental nutrition.? 5. Order low air loss mattress - Specialty mattress from [employer] - Pulsate extra long - Not the Big Turn. 6. When applicable maintain blood glucose levels per Providers order. 7. Coccyx, Buttock, Thigh, scrotum and groin - Off Load Pressure - Cleanse with PH balance spray or wipes, pat dry. ?Apply thin layer of Triad to wound bed - only pat and dab no scrub and rub when soiling occurs. Reapply thin layer PRN after each episode of incontinence. 8. Bilateral Heels - Heel elevation off of bed surface with heel protector boots. Assess heels Q shift. Re-consult wound care Nurse for wound deterioration or wound changes.
== END 2023-12-06 14:56 | disposition other institution (70) | DRG 177 ==
LOC: HO.ED 12-04 00:05 → HO.EDOVER 12-04 01:31 → HO.IMC 12-04 15:14
PROVIDERS: Nurse Practitioner Acute Care; Admitting Provider Internal Medicine; Emergency Provider Emergency Medicine; PCP Family Medicine; Visit Provider Internal Medicine
DX: J69.0 Pneumonitis due to inhalation of food and vomit (principal); G82.54 Quadriplegia, C5-C7 incomplete; L89.153 Pressure ulcer of sacral region, stage 3; J96.01 Acute respiratory failure with hypoxia; T83.098A Other mechanical complication of other urinary catheter, initial encounter; Y73.8 Miscellaneous gastroenterology and urology devices associated with adverse incidents, not elsewhere classified; E03.9 Hypothyroidism, unspecified; S14.155S Other incomplete lesion at C5 level of cervical spinal cord, sequela; I48.0 Paroxysmal atrial fibrillation; N31.9 Neuromuscular dysfunction of bladder, unspecified; D64.9 Anemia, unspecified; Z93.3 Colostomy status; X58.XXXS Exposure to other specified factors, sequela; Z79.01 Long term (current) use of anticoagulants; Z79.890 Hormone replacement therapy; Z79.899 Other long term (current) drug therapy
CPT/HCPCS: 36415; 71045; 71250; 74176; 74230; 80048; 80053; 80202; 82565; 82803; 83605; 83880; 84484; 85025; 85027; 85610; 87040; 92610; 92611; 93005; 93306; 94640; 99285; J0692; J1836; J3370; J3371; J7120; Q9957

== ENCOUNTER → 2023-12-03 21:23 | Outpatient (BNV) | payer MEDICARE, MEDICAID, SELFPAY | PROVIDERS: Admitting Provider Internal Medicine; Emergency Provider Emergency Medicine; Visit Provider Internal Medicine | DX: R06.02 Shortness of breath (principal) | CPT/HCPCS: 93010 ==

== ENCOUNTER 2023-12-04 01:24 | Outpatient (BNV) | payer MEDICARE, MEDICAID, SELFPAY | END 2023-12-04 07:00 | PROVIDERS: Admitting Provider Internal Medicine; Emergency Provider Emergency Medicine; Visit Provider Internal Medicine | DX: I35.8 Other nonrheumatic aortic valve disorders (principal); I31.39 Other pericardial effusion (noninflammatory) | CPT/HCPCS: 93306 ==

== ENCOUNTER 2023-12-04 01:24 | Outpatient (BNV) | payer MEDICARE, MEDICAID, SELFPAY | END 2023-12-05 11:30 | PROVIDERS: Admitting Provider Internal Medicine; Emergency Provider Emergency Medicine; PCP Family Medicine; Visit Provider Physician Assistant Surgical | DX: R13.10 Dysphagia, unspecified (principal) | CPT/HCPCS: 74230 ==

== ENCOUNTER → 2023-12-04 01:24 | Outpatient (BNV) | payer MEDICARE, MEDICAID, SELFPAY | PROVIDERS: Admitting Provider Internal Medicine; Emergency Provider Emergency Medicine; Visit Provider Urology | DX: N31.9 Neuromuscular dysfunction of bladder, unspecified (principal); Z93.59 Other cystostomy status | CPT/HCPCS: 51705; 99222 ==

== ENCOUNTER → 2023-12-04 01:24 | Outpatient (BNV) | payer MEDICARE, MEDICAID, SELFPAY | PROVIDERS: Admitting Provider Internal Medicine; Emergency Provider Emergency Medicine; Visit Provider Internal Medicine | DX: T17.500A Unspecified foreign body in bronchus causing asphyxiation, initial encounter (principal); J69.0 Pneumonitis due to inhalation of food and vomit; Z93.59 Other cystostomy status; N31.9 Neuromuscular dysfunction of bladder, unspecified | CPT/HCPCS: 99223; 99232; 99239; 99499 ==

== ENCOUNTER 2023-12-29 15:54 | Outpatient (REF) | payer MEDICARE, MEDICAID, SELFPAY ==
[2023-12-29 18:08] LABS: Blood Urea Nitrogen 23 mg/dL (9-16); Estimated Glomerular Filt Rate > 60
== END 2023-12-29 15:55 | disposition home or self-care (01) ==
LOC: HO.LAB 15:54
PROVIDERS: PCP Family Medicine; Visit Provider Radiology Vascular & Interventional Radiology
DX: R79.89 Other specified abnormal findings of blood chemistry (principal); R94.4 Abnormal results of kidney function studies
CPT/HCPCS: 36415; 82565; 84520

== ENCOUNTER 2024-01-14 11:18 | Emergency (ER) | payer MEDICARE, MEDICAID, SELFPAY ==
[2024-01-14] VITALS (8 sets, daily range): BP systolic 78–199; BP diastolic 54–110; PULSE 61–90; RESP 13–17; TEMP 35.3–36.4; O2SAT 94–97; BMI 29.2
--- NOTE | 2024-01-14 11:40 | ED_ITS ---
HPI - Male Genitourinary General Chief complaint: Urogenital-Male Stated complaint: LEAKING CATH FROM [facility] PER EMS Time Seen by Provider: 01/14/24 11:26 Source: patient, EMS and old records reviewed Mode of arrival: EMS Limitations: no limitations History of Present Illness ED Provider: ALDA HPI Narrative: 68 yo male with PMH of paraplegia due to lesion at C5-C7, neurogenic bladder s/p suprapubic catheter, sacral decubitus ulcer, DVT with IVC filter coumadin, paroxysmal atrial fibrillation, hypothyroid here with c/o leaking around his suprapubic catheter it is old appearing and unsure when it was last changed. EMS notes HR up and down along with BP en route to hospital. Prior UTIs in past show Providencia and Pseudomonas S to Ceftriaxone and Levfloxacin respectively. Denzel has no complaints. He denies abdominal pain. Bladder scan is > 400 on arrival with catheter in place. he tells me they saw sediment yesterday so they were worried for UTI MD Complaint: other (rojo catheter issue) Onset (ago): unknown Duration: constant Location: abdomen Radiation: abdomen Severity: mild Relieving factors: none Exacerbating factors: none Context: other Associated symptoms: Reports urinary retention Related Data Home Medications ?Medication ?Instructions ?Recorded ?Confirmed ascorbic acid (vitamin C) 500 mg 500 mg PO DAILY 03/23/20 12/04/23 tablet baclofen 10 mg tablet 20 mg PO TID@0900,1300,1700 03/23/20 12/04/23 baclofen 10 mg tablet 40 mg PO BEDTIME 03/23/20 12/04/23 calcitriol 0.25 mcg capsule 0.25 mcg PO DAILY 03/23/20 12/04/23 docusate sodium 100 mg capsule 200 mg PO BEDTIME 03/23/20 12/04/23 (Colace) cholecalciferol (vitamin D3) 1,250 1,250 mcg PO QMONTH 01/09/23 12/04/23 mcg (50,000 unit) tablet dicyclomine 10 mg capsule 10 mg PO QID 01/09/23 12/04/23 furosemide 20 mg tablet 20 mg PO DAILY 01/09/23 12/04/23 gabapentin 100 mg capsule 100 mg PO BID@0800,1400 01/09/23 12/04/23 gabapentin 600 mg tablet 600 mg PO BEDTIME 01/09/23 12/04/23 melatonin 10 mg tablet 10 mg PO BEDTIME Sleep 01/09/23 12/04/23 midodrine 10 mg tablet 10 mg PO TIDWM 01/09/23 12/04/23 acetaminophen 325 mg tablet 650 mg PO Q6H PRN 11/26/23 12/04/23 headache/fever/bodyaches levothyroxine 125 mcg tablet 125 mcg PO DAILY@0630 11/26/23 12/04/23 multivitamin-iron 9 mg-folic acid 1 tab PO DAILY 11/26/23 12/04/23 400 mcg-calcium and minerals tablet nystatin 100,000 unit/gram topical 1 appl topical BID 11/26/23 12/04/23 cream nystatin 100,000 unit/gram topical 1 appl topical BID Rash 11/26/23 12/04/23 powder (Nyamyc) trazodone 150 mg tablet 75 mg PO BEDTIME 11/26/23 12/04/23 warfarin 1 mg tablet 3 mg PO SUTH@199911/26/23 12/04/23 warfarin 4 mg tablet 4 mg PO MOTUWEFRSA@199911/26/23 12/04/23 ferrous sulfate 325 mg (65 mg 325 mg PO DAILY 12/04/23 12/04/23 iron) tablet (FeroSul) miconazole nitrate 2 % topical 1 appl topical BID PRN fungal rash 12/04/23 12/04/23 cream sennosides 8.6 mg tablet (senna) 8.6 mg PO DAILY PRN Constipation 12/04/23 12/04/23 Previous Rx's ?Medication ?Instructions ?Recorded tramadol 50 mg tablet 50 mg PO Q8H PRN Pain, 01/10/23 Moderate(Pain Scale 4-6) #14 tabs guaifenesin 600 mg tablet, 600 mg PO BID #20 tabs 12/01/23 extended release 12 hr (Mucinex) amoxicillin 875 mg-potassium 1 tab PO BID #14 tabs 12/06/23 clavulanate 125 mg tablet doxycycline monohydrate 100 mg 100 mg PO BID #14 caps 12/06/23 capsule methenamine hippurate 1 gram tablet 1 g PO BID #180 tabs 12/06/23 oxybutynin chloride 10 mg 10 mg PO DAILY #90 tabs 12/06/23 tablet,extended release 24 hr cefuroxime axetil 250 mg tablet 250 mg PO BID 7 days #14 tabs 01/14/24 levofloxacin 750 mg tablet 750 mg PO DAILY #9 tabs 01/14/24 Allergies Allergy/AdvReac Type Severity Reaction Status Date / Time dicloxacillin [From DYNAPEN] Allergy Unknown Unknown Verified 01/14/24 11:28 ofloxacin [From FLOXIN] AdvReac Intermediate Abdominal Verified 01/14/24 11:28 Pain penicillin V AdvReac Intermediate Abdominal Verified 01/14/24 11:28 Pain Review of Systems 2 Review of Systems: Constitutional : No Weight loss, No Fever, No Chills ENT/Mouth : No sore throat, No Rhinorrhea Eyes: No Swelling, No Redness Cardiovascular : No Chest Pain, No SOB, NoEdema Respiratory : No Cough, No Sputum, No Wheezing Gastrointestinal : no Nausea, no Vomiting, no Diarrhea, positive abdominal Pain, No Hematochezia, No Melena Genitourinary : No Dysuria, No Urinary Frequency, No Hematuria, No Urgency Musculoskeletal : No joint pain, No Myalgias, No Joint Swelling Skin : No Skin Lesions, No rash Neuro : No Weakness, No Numbness, No Dizziness, No Headache Psych : No Anxiety/Panic, No Depression All other systems reviewed and are negative. [facility] Past Medical History Attestation statement: The following information was validated with the patient. Source: old records reviewed Medical History Chronic restrictive lung disease Pneumonia Urine retention Irreducible left inguinal hernia Autonomic dysfunction Hypothyroidism Hernia Atrial fibrillation Spasms of the hands or feet Spinal cord injury Surgical History S/P tendon repair H/O hemorrhoidectomy S/P IVC filter H/O hernia repair H/O thyroidectomy Family History Family History Sister Diabetes mellitus Social History Social History Household Members: Other Household Members Other:: [facility] Housing: House Housing Other:: [facility] in [place] Do you presently have visiting nurse or other home services: Yes Alcohol intake: former Comment: low extremity paralysis Patient Tobacco Use Status: Never used Tobacco Smoked in Last 30 Days: No Use of substances other than those prescribed or required for medical reasons: No Advance Directives: Yes Advance Directives on File: Yes Advance Directives Date on File: 01/09/23 service: No Physical Exam 2 Vital Signs: Vital Signs: Last Vital Signs Temp 96.8 F 01/14/24 13:38 Pulse 61 01/14/24 16:41 Resp 16 01/14/24 16:41 BP 78/54 L 01/14/24 16:41 Pulse Ox 94 01/14/24 16:41 O2 Del Method Room Air 01/14/24 16:41 BMI result Body Mass Index 29.2 Appearance: somnolent but easily woken to voice Oriented X3. No acute distress. Eyes: Pupils equal, round and reactive to light. ENT: Pharynx normal. Neck: Normal inspection. Neck supple. CVS: Normal heart rate and rhythm. Pulses normal. Respiratory: No respiratory distress. Breath sounds normal. Abdomen: Soft and nontender. slightly full suprapubic, catheter is old appearing with sediment in tubing Skin: Skin warm and dry. Normal skin color. Normal skin turgor. Extremities: No lower extremity edema. No calf ttp Neuro: Oriented X 3. SCI no new deficits Course Course Course Narrative: on catheter exchange large amount of sediment expelled then clear urine Reevaluation(s) Reevaluation #1: notified on discharge BP 98/60 missed his midodrine ordered 10mg will reassess. Medications Administered Discontinued Medications Generic Name Dose Route Start Last Admin Trade Name Freq PRN Reason Stop Dose Admin Ceftriaxone Sodium 1 gm/ 50 mls @ 100 mls/hr 01/14/24 13:24 01/14/24 14:51 Sodium Chloride IV 01/14/24 13:53 Infused ONCE ONE Infusion Levofloxacin 750 mg in 150 mls @ 100 mls/hr 01/14/24 13:24 01/14/24 16:32 Levaquin IV 01/14/24 14:53 Infused ONCE ONE Infusion Midodrine 10 mg 01/14/24 16:41 01/14/24 16:45 Midodrine Hcl 10 Mg Tablet PO 01/14/24 16:42 10 mg ONCE ONE Administration Medical Decision Making Medical Decision Making MDM Narrative: 68 yo male with PMH of paraplegia due to lesion at C5-C7, neurogenic bladder s/p suprapubic catheter, sacral decubitus ulcer, DVT with IVC filter coumadin, paroxysmal atrial fibrillation, hypothyroid here with urine leaking around his catheter at this time will need replacement and send off new urine initial was sent off old catheter, he is retaining, basic labs ordered as well. Differential Diagnosis Differential Diagnoses: The differential diagnosis associated with the presentation includes sediment obstructed catheter, chronic rojo infection Admission/Observation Consideration of admission/observation: Escalation of care including admission/observation considered temp improved no wbc count no tachycardia here at this time will DC home on ceftin and levofloxacin can be managed with oral antibiotics Lab Data MDM Lab Attestation statement: I reviewed the patient's lab results. 01/14/24 11:58 01/14/24 11:58 Labs: Lab Results 01/14/24 01/14/24 01/14/24 Range/Units 11:50 11:58 13:04 WBC 7.8 (4.8-10.8) X10*3/uL RBC 4.35 L (4.60-5.80) X10*6/uL Hgb 12.9 L (14.0-18.0) g/dl Hct 39.8 L (42.0-52.0) % MCV 91.5 (80.0-98.0) fL MCH 29.7 (27.0-33.0) pg MCHC 32.4 (31.0-36.0) g/dl RDW 15.2 (11.0-16.0) % Plt Count 264 D (160-400) X10*3/uL MPV 8.8 L (9.4-12.4) fL Immature Gran % (Auto) 0.5 H (0.0-0.4) % Neut % (Auto) 57.6 (45-73) % Lymph % (Auto) 28.2 (20-40) % [place] % (Auto) 8.9 (2-11) % Eos % (Auto) 4.4 H (0-4) % Baso % (Auto) 0.4 (0-2) % Lymph # (Auto) 2.2 (1.2-4.9) X10*3/uL [place] # (Auto) 0.7 (0.1-1.2) X10*3/uL Eos # (Auto) 0.3 (0.0-0.4) X10*3/uL Baso # (Auto) 0.0 (0.0-0.2) X10*3/uL Abs Immat Gran (auto) 0.04 H (0.00-0.03) X10*3/uL Absolute Neuts (auto) 4.5 (2.0-8.3) x10*3/uL Absolute Nucleated RBC 0.000 (0.0-0.012) X10*3/uL Nucleated RBC % (auto) 0.0 (0.0-0.2) /100WBC Sodium 141 (135-145) mmol/L Potassium 3.4 (3.3-5.1) mmol/L Chloride 101 (96-108) mmol/L Carbon Dioxide 27 (22-29) mmol/L Anion Gap 16 (12-20) BUN 21 H (9-16) mg/dL Creatinine 0.84 (0.5-1.4) mg/dL Estim Creat Clear Calc 115.4 Estimated GFR > 60 Random Glucose 105 (60-115) mg/dL Calcium 9.6 D (8.4-10.2) mg/dL Urine Color Dark Yellow Yellow Urine Appearance Turbid Turbid Urine pH >= 9.0 8.5 (5.0-9.0) Ur Specific [place] 1.020 1.020 (1.005-1.025) Urine Protein >=1000 (4+) H 100 (2+) H (Neg-Trace) mg/dL Urine Glucose (UA) Negative Negative (Negative) mg/dL Urine Ketones Negative Negative (Negative) mg/dL Urine Blood Negative Large (3+) H (Negative) Urine Nitrite Positive H Positive H (Negative) Ur Leukocyte Esterase Large (3+) H Large (3+) H (Negative) Urine RBC 0-2 >20 H (0-2) /HPF Urine WBC 0-5 >50 H (0-5) /HPF Ur Squamous Epith Cells 0-2 0-2 (0-2) /HPF Other Crystals Present Urine Bacteria 3+ 4+ (None Seen) Hyaline Casts 0-2 0-2 (0-2) /LPF Independent Historian Clinical information obtained from an independent historian. History obtained from or confirmed by: EMS External Record Review External record reviewed: Inpatient record Prescription Management I considered prescription management with: Antibiotic Procedures Catheter Insertion (Urinary) Date of insertion: 01/14/24 Time of insertion: 12:13 Reason for placing: Yes Reason for placing indwelling catheter: Other (chronic) Patient has the following: history of catheter associated urinary tract infection and other (chronic suprapubic catheter) Bladder scan/ultrasound used before catheterization: Yes Estimated amount of urine (mLs): 400 Topical anesthesia used: No Catheter type/location: Suprapubic Size (Croatian): 16 Catheter balloon size (mL): 30 Results: successfully catheterized-immediate flow Procedure performed: without complications Discharge Plan Discharge Clinical Impression: Acute retention of urine, Urinary catheter (Rojo) change required Urinary tract infection Qualifiers: Urinary tract infection type: catheter-associated UTI Indwelling urinary catheter type: unspecified Encounter type: initial encounter Qualified Code(s): T83.511A - Infection and inflammatory reaction due to indwelling urethral catheter, initial encounter Patient Disposition: Home, Self-Care Instructions: Urinary Tract Infection in Men (ED), Catheter-associated Urinary Tract Infection (ED) Additional Instructions: labs reassuring, given IV dose of antibiotics in the ED can start next dose in AM changed catheter in the ED return for fevers, confusion, vomiting or any other concerns Prescriptions: New cefuroxime axetil 250 mg tablet 250 mg PO BID 7 Days Qty: 14 0RF levofloxacin 750 mg tablet 750 mg PO DAILY Qty: 9 0RF No Action ascorbic acid (vitamin C) 500 mg Tablet 500 mg PO DAILY baclofen 10 mg tablet 20 mg PO TID@0900,1300,1700 baclofen 10 mg tablet 40 mg PO BEDTIME docusate sodium [Colace] 100 mg Capsule 200 mg PO BEDTIME calcitriol 0.25 mcg capsule 0.25 mcg PO DAILY gabapentin 600 mg tablet 600 mg PO BEDTIME furosemide 20 mg tablet 20 mg PO DAILY gabapentin 100 mg capsule 100 mg PO BID@0800,1400 dicyclomine 10 mg capsule 10 mg PO QID Rx Instructions: with meals midodrine 10 mg Tablet 10 mg PO TIDWM melatonin 10 mg Tablet 10 mg PO BEDTIME cholecalciferol (vitamin D3) 1,250 mcg (50,000 unit) Tablet 1,250 mcg PO QMONTH Rx Instructions: every month on the tramadol 50 mg Tablet 50 mg PO Q8H PRN (Reason: Pain, Moderate(Pain Scale 4-6)) Qty: 14 0RF warfarin 4 mg tablet 4 mg PO MOTUWEFRSA@2000 trazodone 150 mg tablet 75 mg PO BEDTIME levothyroxine 125 mcg tablet 125 mcg PO DAILY@0630 nystatin 100,000 unit/gram cream 1 appl topical BID Rx Instructions: use with powder, apply to buttocks nystatin [Nyamyc] 100,000 unit/gram powder 1 appl topical BID Rx Instructions: use with cream, apply to buttocks warfarin 1 mg tablet 3 mg PO SUTH@2000 [id number]-[id number]-calcium-mins 9 mg iron-400 mcg tablet 1 tab PO DAILY acetaminophen 325 mg tablet 650 mg PO Q6H PRN (Reason: headache/fever/bodyaches) Rx Instructions: For 10 days then as needed guaifenesin [Mucinex] 600 mg Tablet Extended Release 12hr 600 mg PO BID Qty: 20 0RF ferrous sulfate [FeroSul] 325 mg (65 mg iron) tablet 325 mg PO DAILY sennosides [senna] 8.6 mg Tablet 8.6 mg PO DAILY PRN (Reason: Constipation) miconazole nitrate 2 % Cream 1 appl TOPICAL BID PRN (Reason: fungal rash) methenamine hippurate 1 gram Tablet 1 g PO BID Qty: 180 0RF doxycycline monohydrate 100 mg capsule 100 mg PO BID Qty: 14 0RF Rx Instructions: End Date 24 amoxicillin-pot clavulanate 875-125 mg tablet 1 tab PO BID Qty: 14 0RF Rx Instructions: END DATE 12-07-24 oxybutynin chloride 10 mg tablet extended release 24hr 10 mg PO DAILY Qty: 90 0RF Print Language: Yemeni
[2024-01-14 11:57] LABS: Appearance Urine Turbid; Color Urine Dark Yellow; Glucose Urine UA Negative (Negative); Leukocyte Esterase Urine Large (3+) (Negative); Nitrite Urine Positive (Negative); PH >= 9.0 (5.0-9.0); UMIC TRIGGER UACC YES; Urine Blood Negative (Negative); Urine Ketones Negative (Negative); Urine Protein >=1000 (4+) mg/dL (Neg-Trace)
[2024-01-14 12:01] LABS: MANUAL DIFF FLAG NO
[2024-01-14 12:07] LABS: Bacteria Urine 3+ (None Seen); Hyaline Casts Urine 0-2 /LPF (0-2); Other Crystals Urine Present; RBC Urine 0-2 /HPF (0-2); Squamous Epithelial Cell Urine 0-2 /HPF (0-2); UACC Culture Trigger YES; WBC Urine 0-5 /HPF (0-5)
[2024-01-14 12:09] LABS: Basophils Percent Auto 0.4 % (0-2); Eosinophils Absolute Auto 0.3 X10*3/uL (0.0-0.4); Eosinophils Percent Auto 4.4 % (0-4); Hematocrit 39.8 % (42.0-52.0); Hemoglobin 12.9 g/dl (14.0-18.0); Imm Gran Abs Auto 0.04 X10*3/uL (0.00-0.03); Imm Gran Pct Auto 0.5 % (0.0-0.4); Lymphocytes Absolute Auto 2.2 X10*3/uL (1.2-4.9); Lymphocytes Percent Auto 28.2 % (20-40); Mean Corpuscular HGB Conc 32.4 g/dl (31.0-36.0); Mean Corpuscular Hemoglobin 29.7 pg (27.0-33.0); Mean Corpuscular Volume 91.5 fL (80.0-98.0); Mean Platelet Volume 8.8 fL (9.4-12.4); Monocytes Absolute Auto 0.7 X10*3/uL (0.1-1.2); Monocytes Percent Auto 8.9 % (2-11); Neutrophils Absolute Auto 4.5 x10*3/uL (2.0-8.3); Neutrophils Percent Auto 57.6 % (45-73); Platelet Count 264 X10*3/uL (160-400); Red Blood Count 4.35 X10*6/uL (4.60-5.80); Red Cell Distribution Width 15.2 % (11.0-16.0); White Blood Count 7.8 X10*3/uL (4.8-10.8)
[2024-01-14 12:13] LABS: Anion Gap 16 (12-20); Blood Urea Nitrogen 21 mg/dL (9-16); Calcium 9.6 mg/dL (8.4-10.2); Carbon Dioxide 27 mmol/L (22-29); Chloride 101 mmol/L (96-108); Creatinine Clr Calc Pharmacy 115.4; Estimated Glomerular Filt Rate > 60; Glucose Random 105 mg/dL (60-115); Potassium 3.4 mmol/L (3.3-5.1); Sodium 141 mmol/L (135-145)
[2024-01-14 13:20] LABS: Appearance Urine Turbid; Color Urine Yellow; Glucose Urine UA Negative (Negative); Nitrite Urine Positive (Negative); PH 8.5 (5.0-9.0); UMIC TRIGGER UACC YES; Urine Blood Large (3+) (Negative); Urine Ketones Negative (Negative); Urine Protein 100 (2+) mg/dL (Neg-Trace)
[2024-01-14 13:21] LABS: Leukocyte Esterase Urine Large (3+) (Negative)
[2024-01-14 13:45] LABS: Bacteria Urine 4+ (None Seen); Hyaline Casts Urine 0-2 /LPF (0-2); RBC Urine >20 /HPF (0-2); Squamous Epithelial Cell Urine 0-2 /HPF (0-2); UACC Culture Trigger YES; WBC Urine >50 /HPF (0-5)
[2024-01-14] MEDS: cefTRIAXone sodium 1 GM in 0.9 % Sodium Chloride 50 ML IV (14:21)
[2024-01-14] MEDS: levoFLOXacin/D5W 750 MG/150 ML PIGGYBACK 100 MG IV (15:02)
--- NOTE | 2024-01-14 16:41 | PC.NURSE ---
this nurse took over care of patient at 1500 from [facility], patient a&ox3, panel monitor intact, pt has history of hypotention and is on medication for this, pt bp has been running low, iv abx continue to run, cath was changed per report, call becerra within reach, will continue to monitor
[2024-01-14] MEDS: Midodrine HCl 10 MG TABLET PO (16:45)
--- NOTE | 2024-01-14 16:48 | PC.NURSE ---
pt a&ox3, pt noted to be hypotensive 70s/50s on monitor- pt denies being symptomatic, provider notified and requested to medicate patient with his home medications for hypotension, pt medicated per order, pt is awaiting ambulance transport back to [facility], will continue to monitor
== END 2024-01-14 18:29 | disposition home or self-care (01) ==
PROVIDERS: Emergency Medicine; Emergency Provider Emergency Medicine; PCP Family Medicine
DX: R33.9 Retention of urine, unspecified (principal); Z86.718 Personal history of other venous thrombosis and embolism; Z79.01 Long term (current) use of anticoagulants; Z79.899 Other long term (current) drug therapy
CPT/HCPCS: 36415; 51702; 51798; 80048; 81001; 85025; 87086; 87088; 87186; 96365; 96366; 99284; J0696; J1956

== ENCOUNTER 2024-02-12 14:02 | Inpatient (IN) | payer MEDICARE, MEDICAID, SELFPAY ==
[2024-02-12] VITALS (20 sets, daily range): BP systolic 70–144; BP diastolic 34–84; PULSE 60–87; RESP 11–24; TEMP 37.9–39.2; O2SAT 91–98; BMI 34.0
--- NOTE | ~2024-02-12 | CT_ITS ---
EXAMINATION: CT PELVIS WITHOUT CONTRAST CLINICAL INFORMATION: Negative results./Sepsis. COMPARISON: None available. TECHNIQUE: Helical scanning was performed with submillimeter collimation through the pelvis. Sagittal and coronal multiplanar 2-D reconstructions were obtained. This CT examination was performed using dose optimization techniques as appropriate, variously including the following: *Automated exposure control *Adjustment of mA and/or kV according to patient size (this includes techniques or standardized protocols for targeted exams where dose is matched to indication/reason for exam; i.e. extremities or head) *Use of iterative reconstruction technique DLP: 857 mGy-cm FINDINGS: PELVIS: Visualized small bowel loops and stool within the ascending colon appears unremarkable. There is an infrarenal IVC filter There a suprapubic [place] catheter with mildly distended bladder noted. Iatrogenic gas is seen in the bladder. There is a moderate-sized left inguinal hernia containing a loop of small bowel within which appears swollen but no fat infiltration process seen. A prominent right inguinal canal containing fat is noted. In the distal segmental canal there is upwardly migrated the right testes with mild anterior scrotal edema. There is a rectal monitoring catheter noted. No gross bony abnormality is seen. CT/CT pelvis wo IV con IMPRESSION: Right decubitus ulcer without extension to the underlying lesion. No osteomyelitis suspected or een. There is diffuse osteopenia. There is an rectal probe catheter and suprapubic bladder catheter. Electronically signed by: Timothy Quinn MD 02/12/2024 09:24 PM EDT
--- NOTE | ~2024-02-12 | XR_ITS ---
EXAMINATION: Left foot and lumbar spine. CLINICAL INDICATION: Infected decubitus ulcer. Rule out osteomyelitis. Low back pain. COMPARISON: Left foot 05/09/2023. FINDINGS: Left foot: 3 views of left foot were obtained. There is diffuse heterogeneous bone marrow with osteopenia. No acute fracture or dislocation seen. The soft tissues are normal. There is no periosteal elevation thickening are soft tissue gas visualized. Moderate soft tissue swelling along the calcaneal heel is noted. The ankle mortise and subtalar joints are maintained normal. Lumbar spine: Single AP view of lumbar spine reveals nonspecific bowel gas pattern with mild to moderate gas in the stomach. There is an infrarenal IVC filter. Visualized lumbar spine is grossly unremarkable. XR/XR foot LT min 3V IMPRESSION: Heterogenous-appearing bone likely from disuse atrophy. There is no suspicion for osteomyelitis. No soft tissue gas seen however there is soft tissue swelling seen along the calcaneal heel with vascular calcifications. Electronically signed by: Timothy Quinn MD 02/12/2024 08:08 PM EDT
--- NOTE | ~2024-02-12 | XR_ITS ---
EXAMINATION: Left foot and lumbar spine. CLINICAL INDICATION: Infected decubitus ulcer. Rule out osteomyelitis. Low back pain. COMPARISON: Left foot 05/09/2023. FINDINGS: Left foot: 3 views of left foot were obtained. There is diffuse heterogeneous bone marrow with osteopenia. No acute fracture or dislocation seen. The soft tissues are normal. There is no periosteal elevation thickening are soft tissue gas visualized. Moderate soft tissue swelling along the calcaneal heel is noted. The ankle mortise and subtalar joints are maintained normal. Lumbar spine: Single AP view of lumbar spine reveals nonspecific bowel gas pattern with mild to moderate gas in the stomach. There is an infrarenal IVC filter. Visualized lumbar spine is grossly unremarkable. XR/XR lumbar spine 2-3V IMPRESSION: Heterogenous-appearing bone likely from disuse atrophy. There is no suspicion for osteomyelitis. No soft tissue gas seen however there is soft tissue swelling seen along the calcaneal heel with vascular calcifications. Electronically signed by: Timothy Quinn MD 02/12/2024 08:08 PM EDT
--- NOTE | ~2024-02-12 | XR_ITS ---
EXAMINATION: XR CHEST CLINICAL INFORMATION: Fever and mental status change COMPARISON: X-ray 12/03/2023 TECHNIQUE: Frontal view of the chest was obtained. FINDINGS: Left chest pacemaker with single lead overlying the right ventricle, similar to previous. Marked cardiomegaly, similar to previous. Low lung volumes. Suspected small bilateral pleural effusions. There is bibasilar hazy opacities, left greater than right, which could reflect atelectasis or consolidation. No pneumothorax. No pulmonary edema. XR/XR chest 1V IMPRESSION: Small bilateral pleural effusions. Bibasilar opacities from atelectasis/consolidation. Marked cardiomegaly, similar to previous. Electronically signed by: Cameron Valdes MD 02/12/2024 07:51 PM EDT
[2024-02-12] MEDS: cefTRIAXone sodium 1 GM in 0.9 % Sodium Chloride 50 ML IV (14:56)
[2024-02-12 14:57] LABS: MANUAL DIFF FLAG NO
[2024-02-12 15:04] LABS: Basophils Percent Auto 0.3 % (0-2); Eosinophils Absolute Auto 0.1 X10*3/uL (0.0-0.4); Eosinophils Percent Auto 0.6 % (0-4); Hematocrit 36.7 % (42.0-52.0); Hemoglobin 11.9 g/dl (14.0-18.0); Imm Gran Abs Auto 0.05 X10*3/uL (0.00-0.03); Imm Gran Pct Auto 0.5 % (0.0-0.4); Lymphocytes Absolute Auto 0.6 X10*3/uL (1.2-4.9); Lymphocytes Percent Auto 5.2 % (20-40); Mean Corpuscular HGB Conc 32.4 g/dl (31.0-36.0); Mean Corpuscular Hemoglobin 29.2 pg (27.0-33.0); Mean Corpuscular Volume 90.2 fL (80.0-98.0); Mean Platelet Volume 9.4 fL (9.4-12.4); Monocytes Absolute Auto 0.6 X10*3/uL (0.1-1.2); Monocytes Percent Auto 5.8 % (2-11); Neutrophils Absolute Auto 9.5 x10*3/uL (2.0-8.3); Neutrophils Percent Auto 87.6 % (45-73); Platelet Count 185 X10*3/uL (160-400); Red Blood Count 4.07 X10*6/uL (4.60-5.80); Red Cell Distribution Width 15.8 % (11.0-16.0); White Blood Count 10.9 X10*3/uL (4.8-10.8)
--- NOTE | 2024-02-12 15:09 | PC.NURSE ---
Patient initially placed in ED6H, initial RN Keena deemed patient not appropriate for hallway bed, patient moved into ED bed 10, patient heavily satured w/ urine, rolled to get dirty linens out from underneath patient, patient heavy 3A to roll, significant wounds noted on buttock w/ open area at the coccyx. Entire buttock area reddened, Keena took picture for patient chart. Rect temp obtained, patient noted to be 102.5, provider Mary made aware, sepsis protocol initiated, delay in obtaining BC/lab work due to pt's initial placement in the hallway, patient care needed.
[2024-02-12 15:22] LABS: Alanine Aminotransferase 13 U/L (0-40); Albumin Level 3.9 g/dL (3.5-5.0); Alkaline Phosphatase 84 U/L (39-117); Anion Gap 14 (12-20); Aspartate Amino Transferase 14 U/L (5-37); Bilirubin Total 0.7 mg/dL (0.0-1.0); Blood Urea Nitrogen 27 mg/dL (9-16); Calcium 8.7 mg/dL (8.4-10.2); Carbon Dioxide 24 mmol/L (22-29); Chloride 107 mmol/L (96-108); Creatinine Clr Calc Pharmacy 106.3; Estimated Glomerular Filt Rate > 60; Glucose Random 109 mg/dL (60-115); Magnesium 1.7 mg/dL (1.6-2.6); Potassium 4.2 mmol/L (3.3-5.1); Sodium 141 mmol/L (135-145); Total Protein 7.1 g/dL (6.5-8.0)
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
[2024-02-12 15:31] LABS: Lactic Acid 3.1 mmol/L (0.5-2.0)
[2024-02-12] MEDS: vancomycin/NS 2,000 MG/500 ML PLAST..BAG 250 MG IV (15:33)
--- NOTE | 2024-02-12 15:42 | PC.NURSE ---
Pressures 70's/40s, manual 80/58. Provider aware, to order albumin
[2024-02-12] MEDS: Albumin Human 25 % 100 ML IV (15:55)
[2024-02-12 16:01] LABS: B Type Natriuretic Peptide 187 pg/mL (<100)
[2024-02-12 16:54] LABS: Influenza A PCR NEGATIVE (Negative); Influenza B PCR NEGATIVE (Negative); Resp Syncy Virus RNA Qual PCR NEGATIVE (Negative); SARS COV2 PCR INHOUSE NEGATIVE (Negative)
[2024-02-12 16:56] LABS: Reflex Lactate? Lactic Acid Added
--- NOTE | 2024-02-12 16:56 | PC.NURSE ---
Pressures remain soft, Dr. Cramer aware, to start levophed.
[2024-02-12] MEDS: Norepinephrine Bitartrate/D5W 8 MG/250 ML PLAST..BAG 11.89 MG IVCONT (17:04)
--- NOTE | 2024-02-12 17:04 | PC.NURSE ---
Levophed started w/ second FLO gastelum at bedside. Pressure 74/36
--- NOTE | 2024-02-12 17:31 | PC.NURSE ---
Spoke to programming coordinator Ketty, adding information about patient's status - she went into to give him his noon meds, patient was shaking/ they were unable to get a blood pressure before calling EMS. Ketty unsure if suprapubic was draining at all at the detention. Contact # [phone].
--- NOTE | 2024-02-12 17:44 | PC.NURSE ---
Portable xray , radiology waiting for it to recharge before bedside xrays.
[2024-02-12] MEDS: Acetaminophen 325 MG TABLET 650 MG PO (17:46)
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
--- NOTE | 2024-02-12 19:51 | PHA.PROG ---
Admission Date/Time: February 12, 2024 17:32 Indication: skin Weight in k.8 kg Adjusted body weight in Kg: [place] body weight in Kg: Obesity Dosing Indication % IBW: Serum Creatinine - Last 168 Hours 02/12/24 14:51 Creatinine 0.98 Estimated CrCl and GFR - Last 168 Hours 02/12/24 14:51 Estim Creat Clear Calc 106.3 Estimated GFR > 60 Vancomycin Loading Dose: 2000mg x 1 Current Vancomycin Dosing Regimen: 1250mg Q12H Vancomycin Monitoring using AUC goal of 400 - 600 range with trough as surrogate marker: 509 mg/L Date and Time for next Vancomycin Level to be drawn: 02/13/24 @2100 Pharmacist Comments on Vancomycin Plan: Predicted trough of 17mg/L; due to patient's BMI may come back lower. Regular model being used until results yielded, patient's BMI = 34. Started next dose 8 hours after load due to timing for proper trough Vancomycin dosing will take advantage of FinalCAD as a clinical decision support tool that uses Bayesian modeling to calculate individual patient's pharmacokinetic parameters and forecast the patient's drug concentration time course with the target goal AUC 24 range of 400 - 600 mg/L/hr.
--- NOTE | 2024-02-12 20:40 | PHA.MEDREC ---
Addendum entered by Gianna Iverson [facility] 02/13/24 18:01: Notified Dr. Santiago that the warfarin doses were confirmed. Addendum entered by Gianna Iverson [facility] 02/13/24 16:01: Addendum was reviewed by [facility]. Name of nurse at Monae Quintero's office is Samuel. Addendum entered by Padmaja Pickard 02/13/24 15:21: Following up from last night. Called DR Monae Quintero at [facility] ([phone]) to confirm Warfarin dose. Starting on 01/15/24 patients dose is Warfarin 3 mg on (Mondays) and Warfarin 4 mg on all other days (Mon,mon,,Mon,mon,mon). Patients INR was 2.9 on Monday02/12/24 next blood work is scheduled for Monday02/19/24. Addendum entered by Gianna Iverson [facility] 02/12/24 21:50: Med rec was reviewed by [facility]. Provider Doris Sanchez was notified about our problem of unable to confirm warfarin dose. Original Note: Pharmacy Consult ? Medication Reconciliation Pharmacy has completed the medication reconciliation. Utilized claims and list for [facility] to confirm med list. Warfarin was on list, however it has no strength or frequency on it. Called contact at [facility] ([phone]) to confirm the dose, Left a message on voicemail @ 8:32pm. will have Morning med rec team call again and follow up. Left unconfirmed.
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
[2024-02-12] MEDS: Midodrine HCl 10 MG TABLET PO (21:03)
[2024-02-12] MEDS: levoFLOXacin/D5W 750 MG/150 ML PIGGYBACK 100 MG IV (21:06)
--- NOTE | 2024-02-12 21:22 | HO.SKINPHOTO ---
Coccyx left foot left Heel right buttocks Right upper thigh
[2024-02-12 21:24] LABS: Appearance Urine Cloudy; Color Urine Yellow; Glucose Urine UA Negative (Negative); Leukocyte Esterase Urine Large (3+) (Negative); Nitrite Urine Positive (Negative); PH 8.5 (5.0-9.0); Specific Gravity - Urine 1.015 (1.005-1.025); UMIC TRIGGER UACC YES; Urine Blood Large (3+) (Negative); Urine Ketones Negative (Negative); Urine Protein 100 (2+) mg/dL (Neg-Trace)
[2024-02-12 21:40] LABS: Bacteria Urine 4+ (None Seen); Hyaline Casts Urine 0-2 /LPF (0-2); Other Crystals Urine Present; RBC Urine >20 /HPF (0-2); Squamous Epithelial Cell Urine 0-2 /HPF (0-2); UACC Culture Trigger YES; WBC Urine >50 /HPF (0-5)
[2024-02-12] MEDS: vancomycin HCL 1,250 MG in 0.9 % Sodium Chloride 250 ML 166.67 MG IV (22:58)
[2024-02-13] VITALS (22 sets, daily range): BP systolic 90–153; BP diastolic 48–75; PULSE 60–65; RESP 13–22; TEMP 36.5–38.5; O2SAT 92–98; BMI 34.2
[2024-02-13] MEDS: Acetaminophen 325 MG TABLET 650 MG PO (01:08)
[2024-02-13 05:10] LABS: VBG Base Excess -1.6 mmol/L; VBG HCO3 21 mmol/L (22-26); VBG pCO2 29 mmHg; VBG pH 7.46 (7.32-7.43); VBG pO2 54 mmHg
[2024-02-13] MEDS: Levothyroxine Sodium 125 MCG TABLET PO (05:10)
[2024-02-13 05:12] LABS: MANUAL DIFF FLAG NO
[2024-02-13 05:15] LABS: Basophils Percent Auto 0.4 % (0-2); Eosinophils Absolute Auto 0.1 X10*3/uL (0.0-0.4); Eosinophils Percent Auto 0.8 % (0-4); Hematocrit 33.9 % (42.0-52.0); Hemoglobin 10.9 g/dl (14.0-18.0); Imm Gran Abs Auto 0.04 X10*3/uL (0.00-0.03); Imm Gran Pct Auto 0.4 % (0.0-0.4); Lymphocytes Absolute Auto 0.9 X10*3/uL (1.2-4.9); Lymphocytes Percent Auto 9.9 % (20-40); Mean Corpuscular HGB Conc 32.2 g/dl (31.0-36.0); Mean Corpuscular Hemoglobin 29.1 pg (27.0-33.0); Mean Corpuscular Volume 90.6 fL (80.0-98.0); Mean Platelet Volume 9.7 fL (9.4-12.4); Monocytes Absolute Auto 0.5 X10*3/uL (0.1-1.2); Monocytes Percent Auto 5.8 % (2-11); Neutrophils Absolute Auto 7.7 x10*3/uL (2.0-8.3); Neutrophils Percent Auto 82.7 % (45-73); Platelet Count 173 X10*3/uL (160-400); Red Blood Count 3.74 X10*6/uL (4.60-5.80); Red Cell Distribution Width 15.9 % (11.0-16.0); White Blood Count 9.3 X10*3/uL (4.8-10.8)
[2024-02-13 05:25] LABS: Venous Blood Gas Refer to POC result
[2024-02-13 05:28] LABS: INTERNATIONAL NORM RATIO 3.5 (0.9-1.1)
[2024-02-13 05:36] LABS: Alanine Aminotransferase 13 U/L (0-40); Albumin Level 3.6 g/dL (3.5-5.0); Alkaline Phosphatase 70 U/L (39-117); Anion Gap 10 (12-20); Aspartate Amino Transferase 21 U/L (5-37); Bilirubin Total 0.9 mg/dL (0.0-1.0); Blood Urea Nitrogen 21 mg/dL (9-16); Calcium 7.9 mg/dL (8.4-10.2); Carbon Dioxide 23 mmol/L (22-29); Chloride 110 mmol/L (96-108); Creatinine Clr Calc Pharmacy 142.7; Estimated Glomerular Filt Rate > 60; Glucose Random 120 mg/dL (60-115); Magnesium 1.7 mg/dL (1.6-2.6); Phosphorus 2.3 mg/dL (2.7-4.5); Potassium 3.8 mmol/L (3.3-5.1); Sodium 139 mmol/L (135-145); Total Protein 6.4 g/dL (6.5-8.0)
[2024-02-13] MEDS: Potassium Phosphate/NS 15 MMOL/250 ML PLAST..BAG 62.5 MMOL IV (07:38)
[2024-02-13] MEDS: Calcium Gluconate/NaCl,Iso-Osm 1 GM/50 ML PLAST..BAG IV (07:38)
[2024-02-13] MEDS: Midodrine HCl 10 MG TABLET PO ×3 (07:50→20:06)
--- NOTE | 2024-02-13 10:43 | MHC.CLN ---
RE: CONSULT PT WITH INCREASED NUTRITION NEEDS R/T PRESSURE INJURIES DIET RX: CARDIAC-RECOMMEND 2GM NA RECOMMEND ADDING ENSURE BID TO PROMOTE WOUND HEALING SUPP PROVIDES 700KCALS, 40G PROTEIN MONITOR PO INTAKE AND ENCOURAGE SUPPLEMENT
[2024-02-13] MEDS: Albumin Human 25 % 100 ML IV ×3 (11:08→20:05)
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
--- NOTE | 2024-02-13 12:04 | HO.OSTOMY ---
Ostomy Consult: Initial 68yr old? admitted to [facility] on02/12/24- See progress notes and H&P for detailed history.? Patient agreeable to assessment and photo documentation.? Ostomy pouch assessed and leaking noted at 11 o'clock.?? Stool is pasty consistency at today?s assessment which may be impacting his leaking as his stoma is flush to his skin.? The pouch was removed and he was changed into [employer] #[id number].? Although at first glance he would benefit from a convex pouch given my history with the patient and knowledge that he does not use nor leak often outpatient.? Flat pouch applied and direct care team will notify if leaking continues.
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
--- NOTE | 2024-02-13 13:30 | MHC.CM.PN ---
Met w/pt to discuss d/c planning needs: pt [facility]: w/c bound d/t parapalegia: no services - has all necessary DME, 26/12 prison staff who assist w/ADL's meal prep and transportation. Pt has a suprapubic cath that he can empty with minimal assistance. HCP: pt states his sister, Ifeanyi passed and he appointed Analia Mireles as his HCP. Revised Copy requested. MOLST on file. Pt requesting to return to home following admission. Unknown if he will need LT ATB for bacteremia/urosepsis. Will refer to [facility]. Pt declining STR referrals at this time. Pt will need BLS transport. CM to follow
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
[2024-02-13] MEDS: levoFLOXacin/D5W 750 MG/150 ML PIGGYBACK 100 MG IV (20:06)
[2024-02-14] MEDS: Albumin Human 25 % 100 ML IV (02:35)
[2024-02-14 04:00] VITALS: BP 162/85; PULSE 63; RESP 20; TEMP 36.7; O2SAT 97
[2024-02-14] MEDS: Levothyroxine Sodium 125 MCG TABLET PO (05:39)
[2024-02-14 06:00] VITALS: BMI 34.2
[2024-02-14 06:38] LABS: Venous Blood Gas Refer to POC result
[2024-02-14 06:43] LABS: VBG Base Excess 1.2 mmol/L; VBG HCO3 23 mmol/L (22-26); VBG pCO2 30 mmHg; VBG pH 7.49 (7.32-7.43); VBG pO2 72 mmHg
[2024-02-14 06:45] LABS: INTERNATIONAL NORM RATIO 2.6 (0.9-1.1); Prothrombin Time 31.3 SEC (11.1-13.3)
[2024-02-14 06:55] LABS: Albumin Level 3.9 g/dL (3.5-5.0); Anion Gap 12 (12-20); Blood Urea Nitrogen 13 mg/dL (9-16); Calcium 8.4 mg/dL (8.4-10.2); Carbon Dioxide 23 mmol/L (22-29); Chloride 106 mmol/L (96-108); Creatinine Clr Calc Pharmacy 158.3; Estimated Glomerular Filt Rate > 60; Glucose Random 97 mg/dL (60-115); Magnesium 1.8 mg/dL (1.6-2.6); Phosphorus 2.1 mg/dL (2.7-4.5); Potassium 3.7 mmol/L (3.3-5.1); Sodium 137 mmol/L (135-145)
[2024-02-14 07:35] LABS: MANUAL DIFF FLAG NO
[2024-02-14 07:38] LABS: Basophils Percent Auto 0.4 % (0-2); Eosinophils Absolute Auto 0.2 X10*3/uL (0.0-0.4); Eosinophils Percent Auto 2.4 % (0-4); Hematocrit 31.4 % (42.0-52.0); Hemoglobin 10.4 g/dl (14.0-18.0); Imm Gran Abs Auto 0.04 X10*3/uL (0.00-0.03); Imm Gran Pct Auto 0.6 % (0.0-0.4); Lymphocytes Absolute Auto 1.6 X10*3/uL (1.2-4.9); Mean Corpuscular HGB Conc 33.1 g/dl (31.0-36.0); Mean Corpuscular Hemoglobin 29.7 pg (27.0-33.0); Mean Corpuscular Volume 89.7 fL (80.0-98.0); Mean Platelet Volume 9.4 fL (9.4-12.4); Monocytes Absolute Auto 0.6 X10*3/uL (0.1-1.2); Monocytes Percent Auto 9.1 % (2-11); Neutrophils Absolute Auto 4.5 x10*3/uL (2.0-8.3); Neutrophils Percent Auto 64.5 % (45-73); Platelet Count 136 X10*3/uL (160-400); Red Cell Distribution Width 15.7 % (11.0-16.0)
[2024-02-14 08:00] VITALS: BP 142/65; PULSE 60; RESP 18; TEMP 36.2; O2SAT 95
[2024-02-14] MEDS: Sodium,Potassium Phosphates POWD.PACK 1 PACKET PO (09:13)
[2024-02-14] MEDS: Midodrine HCl 10 MG TABLET PO ×3 (09:13→20:41)
[2024-02-14] MEDS: calcitrioL 0.25 MCG CAPSULE PO (09:14)
[2024-02-14] MEDS: Dicyclomine HCl 10 MG CAPSULE PO ×4 (09:14→20:41)
[2024-02-14] MEDS: Gabapentin 100 MG CAPSULE PO ×2 (09:14→14:20)
[2024-02-14] MEDS: Ascorbic Acid 500 MG TABLET PO (09:14)
[2024-02-14] MEDS: Ferrous Sulfate 324 MG TABLET.DR PO (09:14)
[2024-02-14] MEDS: Baclofen 20 MG TABLET PO ×3 (09:14→18:16)
[2024-02-14] MEDS: Multivitamin TABLET 1 TAB PO (09:14)
[2024-02-14] MEDS: oxyBUTYnin chloride ER 5 MG TAB.ER.24 10 MG PO (09:14)
--- NOTE | 2024-02-14 10:20 | MHC.CM.PN ---
Per ROUNDS discussion, Patient is not yet medically cleared for dc (IV Levaquin/Bacteremia); returning to the Jail is the goal and CM will continue to follow.
[2024-02-14 11:39] VITALS: BP 176/72; PULSE 60; RESP 19; TEMP 36.8; O2SAT 97
--- NOTE | 2024-02-14 11:50 | MHC.CLN ---
F/U PT WITH INCREASED NUTRITION NEEDS R/T PRESSURE INJURIES PT REPORTED APPETITE IS CURRENTLY POOR, BUT HE IS DRINKING FLUIDS AND RECEPTIVE TO DRINKING ENSURE DIET RX: 2GM NA -APPROPRIATE PT RECEIVING ENSURE BID TO PROMOTE WOUND HEALING SUPP PROVIDES 700KCALS, 40G PROTEIN WITH 100% ACCEPTANCE EDUCATED PT ON INCREASING PO PROTEIN TO PROMOTE WOUND HEALING MONITOR PO INTAKE AND ENCOURAGE SUPPLEMENT
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
[2024-02-14 16:00] VITALS: BP 144/82; PULSE 60; RESP 19; TEMP 36.4; O2SAT 94
[2024-02-14] MEDS: Warfarin Sodium 4 MG TABLET PO (18:17)
[2024-02-14 19:39] VITALS: BP 116/67; PULSE 62; RESP 17; TEMP 36.2; O2SAT 94
[2024-02-14] MEDS: Melatonin 3 MG TABLET 9 MG PO (20:41)
[2024-02-14] MEDS: traZODone HCL 25 MG HALFTAB 75 MG PO (20:41)
[2024-02-14] MEDS: Docusate Sodium 100 MG CAPSULE 200 MG PO (20:43)
[2024-02-14] MEDS: Gabapentin 600 MG TABLET PO (20:43)
[2024-02-14] MEDS: Baclofen 20 MG TABLET 40 MG PO (20:43)
[2024-02-14] MEDS: levoFLOXacin/D5W 750 MG/150 ML PIGGYBACK 100 MG IV (20:44)
[2024-02-14] MEDS: Nystatin Powder 15 GM BOTTLE 1 APPL TOPICAL (21:20)
[2024-02-14 23:14] VITALS: BP 111/63; PULSE 60; RESP 16; TEMP 36.6; O2SAT 98
[2024-02-15 03:07] VITALS: BP 103/63; PULSE 59; RESP 18; TEMP 36.4
[2024-02-15 06:00] VITALS: BMI 33.1
[2024-02-15 06:27] LABS: Hematocrit 29.8 % (42.0-52.0); Hemoglobin 9.6 g/dl (14.0-18.0); Mean Corpuscular HGB Conc 32.2 g/dl (31.0-36.0); Mean Corpuscular Hemoglobin 28.7 pg (27.0-33.0); Mean Platelet Volume 9.8 fL (9.4-12.4); Platelet Count 140 X10*3/uL (160-400); Red Blood Count 3.35 X10*6/uL (4.60-5.80); Red Cell Distribution Width 15.4 % (11.0-16.0)
[2024-02-15] MEDS: Levothyroxine Sodium 125 MCG TABLET PO (06:40)
[2024-02-15 06:42] LABS: Anion Gap 12 (12-20); Blood Urea Nitrogen 10 mg/dL (9-16); Calcium 8.3 mg/dL (8.4-10.2); Carbon Dioxide 26 mmol/L (22-29); Chloride 101 mmol/L (96-108); Creatinine Clr Calc Pharmacy 174.1; Estimated Glomerular Filt Rate > 60; Glucose Random 107 mg/dL (60-115); Magnesium 1.9 mg/dL (1.6-2.6); Phosphorus 3.2 mg/dL (2.7-4.5); Potassium 3.7 mmol/L (3.3-5.1); Sodium 135 mmol/L (135-145)
[2024-02-15 06:46] LABS: Prothrombin Time 24.2 SEC (11.1-13.3)
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
[2024-02-15] MEDS: Midodrine HCl 10 MG TABLET PO ×3 (10:25→20:37)
[2024-02-15] MEDS: oxyBUTYnin chloride ER 5 MG TAB.ER.24 10 MG PO (10:25)
[2024-02-15] MEDS: Dicyclomine HCl 10 MG CAPSULE PO ×4 (10:25→20:43)
[2024-02-15] MEDS: calcitrioL 0.25 MCG CAPSULE PO (10:25)
[2024-02-15] MEDS: Nystatin Powder 15 GM BOTTLE 1 APPL TOPICAL ×2 (10:26→20:44)
[2024-02-15] MEDS: Gabapentin 100 MG CAPSULE PO ×2 (10:26→15:40)
[2024-02-15] MEDS: Multivitamin TABLET 1 TAB PO (10:26)
[2024-02-15] MEDS: Baclofen 20 MG TABLET PO ×3 (10:26→15:51)
[2024-02-15] MEDS: Ferrous Sulfate 324 MG TABLET.DR PO (10:26)
[2024-02-15] MEDS: Ascorbic Acid 500 MG TABLET PO (10:26)
[2024-02-15 11:08] LABS: Immature Retic Fraction 18.3 % (2.3-13.4); Retic HGB Equivalent 28.9 pg (30.0-35.0); Reticulocyte Percent 1.5 % (0.5-1.8); Reticulocytes Absolute 0.052 X10*6/uL (0.026-0.095)
[2024-02-15 11:24] LABS: Iron 56 mcg/dL (45-160); Lactate Dehydrogenase 169 U/L (118-273); Percent Iron Saturation 34 % (15-50); Total Iron Binding Capacity 167 mcg/dL (228-428); Unsaturated Iron Binding 111 ug/dL
[2024-02-15 11:33] VITALS: BP 86/48; PULSE 60; RESP 19; TEMP 36.7; O2SAT 97
[2024-02-15 11:38] LABS: Ferritin 456 ng/mL (20-250)
[2024-02-15 15:51] VITALS: BP 99/51; PULSE 60; RESP 19; TEMP 36.2; O2SAT 95
[2024-02-15] MEDS: Warfarin Sodium 4 MG TABLET PO (18:07)
[2024-02-15 19:22] VITALS: BP 115/57; PULSE 61; RESP 18; TEMP 35.5; O2SAT 98
[2024-02-15] MEDS: traZODone HCL 25 MG HALFTAB 75 MG PO (20:35)
[2024-02-15] MEDS: Baclofen 20 MG TABLET 40 MG PO (20:36)
[2024-02-15] MEDS: levoFLOXacin 750 MG TABLET PO (20:36)
[2024-02-15] MEDS: Gabapentin 600 MG TABLET PO (20:36)
[2024-02-15] MEDS: Melatonin 3 MG TABLET 9 MG PO (20:37)
[2024-02-15 23:12] VITALS: BP 124/58; PULSE 62; RESP 18; TEMP 36; O2SAT 99
[2024-02-16 03:13] VITALS: BP 101/60; PULSE 58; RESP 18; TEMP 36; O2SAT 96
[2024-02-16] MEDS: Levothyroxine Sodium 125 MCG TABLET PO (05:20)
[2024-02-16 06:00] VITALS: BMI 35.5
--- NOTE | 2024-02-16 06:11 | PC.NURSE ---
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 Patient remains AAOX3 with ability to make his needs known. Bed bound with difficulty moving /lifting LE. Decreased sensation in B/L LE. L>R. 2+ pedal edema. Frequent O2 desaturation while asleep. Oxymask found to be not tolerable. O2 3L via NC was more suitable. Patient will benefit for a sleep study to help determine the need for CPAP at night. Assisted with turning and repositioning. VSS. No signs of acute distress noted.
[2024-02-16 06:23] LABS: Hematocrit 32.8 % (42.0-52.0); Hemoglobin 10.6 g/dl (14.0-18.0); Mean Corpuscular HGB Conc 32.3 g/dl (31.0-36.0); Mean Corpuscular Volume 89.6 fL (80.0-98.0); Mean Platelet Volume 9.7 fL (9.4-12.4); Platelet Count 151 X10*3/uL (160-400); Red Blood Count 3.66 X10*6/uL (4.60-5.80); Red Cell Distribution Width 15.2 % (11.0-16.0); White Blood Count 5.1 X10*3/uL (4.8-10.8)
[2024-02-16 06:31] LABS: INTERNATIONAL NORM RATIO 2.4 (0.9-1.1)
[2024-02-16 06:36] LABS: Anion Gap 12 (12-20); Blood Urea Nitrogen 12 mg/dL (9-16); Calcium 8.3 mg/dL (8.4-10.2); Carbon Dioxide 28 mmol/L (22-29); Chloride 102 mmol/L (96-108); Creatinine Clr Calc Pharmacy 171.7; Estimated Glomerular Filt Rate > 60; Glucose Random 96 mg/dL (60-115); Potassium 4.1 mmol/L (3.3-5.1); Sodium 138 mmol/L (135-145)
[2024-02-16 07:11] LABS: Vitamin B12 440 pg/mL (200-900)
[2024-02-16 07:55] VITALS: BP 118/70; PULSE 61; RESP 19; TEMP 36.3; O2SAT 99
[2024-02-16] MEDS: Midodrine HCl 10 MG TABLET PO ×3 (09:25→20:56)
[2024-02-16] MEDS: Ferrous Sulfate 324 MG TABLET.DR PO (09:26)
[2024-02-16] MEDS: Multivitamin TABLET 1 TAB PO (09:26)
[2024-02-16] MEDS: Ascorbic Acid 500 MG TABLET PO (09:26)
[2024-02-16] MEDS: Gabapentin 100 MG CAPSULE PO ×2 (09:26→14:10)
[2024-02-16] MEDS: Dicyclomine HCl 10 MG CAPSULE PO ×4 (09:26→20:56)
[2024-02-16] MEDS: Baclofen 20 MG TABLET PO ×3 (09:26→17:18)
[2024-02-16] MEDS: oxyBUTYnin chloride ER 5 MG TAB.ER.24 10 MG PO (09:26)
[2024-02-16] MEDS: calcitrioL 0.25 MCG CAPSULE PO (09:26)
[2024-02-16] MEDS: Nystatin Powder 15 GM BOTTLE 1 APPL TOPICAL ×2 (09:30→23:17)
--- NOTE | 2024-02-16 10:44 | MHC.CM.PN ---
Per ROUNDS discussion, Patient is not yet medically cleared for dc (cultures pending); returning to the Long Term is the goal and cM will continue to follow.
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
--- NOTE | 2024-02-16 11:42 | MHC.CLN ---
F/U PT WITH INCREASED NUTRITION NEEDS R/T PRESSURE INJURIES PO INTAKE 50 & 100% DIET RX: 2GM NA -APPROPRIATE PT RECEIVING ENSURE BID TO PROMOTE WOUND HEALING SUPP PROVIDES 700KCALS, 40G PROTEIN WITH 100% ACCEPTANCE WILL INCREASE ENSURE TO TID TO PROVIDE 1020KCALS, 60G PROTEIN MONITOR PO INTAKE AND ENCOURAGE SUPPLEMENT
[2024-02-16 12:00] VITALS: BP 92/55; PULSE 60; RESP 20; TEMP 36.1; O2SAT 97
--- NOTE | 2024-02-16 13:17 | MHC.CM.PN ---
CM met with [facility] RN at bedside, with Patient. The [facility] RN this weekend will be Joanne @ [phone], should patient be cleared for dc over the weekend. [facility] paperwork has been placed in front of the paper chart.
[2024-02-16 16:00] VITALS: BP 109/76; PULSE 60; TEMP -13.6; TEMP 7.5; O2SAT 97
[2024-02-16] MEDS: Warfarin Sodium 4 MG TABLET PO (17:19)
[2024-02-16 20:00] VITALS: BP 111/58; PULSE 60; RESP 20; TEMP 36.6; O2SAT 95
[2024-02-16] MEDS: Baclofen 20 MG TABLET 40 MG PO (20:55)
[2024-02-16] MEDS: Melatonin 3 MG TABLET 9 MG PO (20:55)
[2024-02-16] MEDS: traZODone HCL 25 MG HALFTAB 75 MG PO (20:55)
[2024-02-16] MEDS: Gabapentin 600 MG TABLET PO (20:56)
[2024-02-16] MEDS: levoFLOXacin 750 MG TABLET PO (20:57)
[2024-02-17] VITALS: BP 111/58; PULSE 60; RESP 20; TEMP 36.4; O2SAT 95
[2024-02-17 04:00] VITALS: BP 95/65; PULSE 60; RESP 20; TEMP 36.2; O2SAT 96
[2024-02-17] MEDS: Levothyroxine Sodium 125 MCG TABLET PO (05:24)
[2024-02-17 06:00] VITALS: BMI 32.2
[2024-02-17 06:54] LABS: INTERNATIONAL NORM RATIO 2.3 (0.9-1.1); Prothrombin Time 28.4 SEC (11.1-13.3)
[2024-02-17 07:25] VITALS: BP 113/67; PULSE 60; RESP 18; TEMP 36.4; O2SAT 97
[2024-02-17] MEDS: Ferrous Sulfate 324 MG TABLET.DR PO (08:56)
[2024-02-17] MEDS: Multivitamin TABLET 1 TAB PO (08:56)
[2024-02-17] MEDS: calcitrioL 0.25 MCG CAPSULE PO (08:56)
[2024-02-17] MEDS: Ascorbic Acid 500 MG TABLET PO (08:57)
[2024-02-17] MEDS: Gabapentin 100 MG CAPSULE PO ×2 (08:57→13:24)
[2024-02-17] MEDS: oxyBUTYnin chloride ER 5 MG TAB.ER.24 10 MG PO (08:57)
[2024-02-17] MEDS: Dicyclomine HCl 10 MG CAPSULE PO ×4 (08:57→22:30)
[2024-02-17] MEDS: Nystatin Powder 15 GM BOTTLE 1 APPL TOPICAL ×2 (08:57→22:35)
[2024-02-17] MEDS: Midodrine HCl 10 MG TABLET PO ×3 (08:57→22:28)
[2024-02-17] MEDS: Baclofen 20 MG TABLET PO ×3 (08:57→16:14)
[2024-02-17 11:35] VITALS: BP 97/55; PULSE 61; RESP 18; TEMP 36.1; O2SAT 96
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
[2024-02-17 15:42] VITALS: BP 106/59; PULSE 74; RESP 20; TEMP 36.5; O2SAT 95
[2024-02-17] MEDS: Warfarin Sodium 4 MG TABLET PO (18:19)
[2024-02-17 20:00] VITALS: BP 132/76; PULSE 60; RESP 20; TEMP 36.8; O2SAT 94
[2024-02-17] MEDS: traZODone HCL 25 MG HALFTAB 75 MG PO (22:29)
[2024-02-17] MEDS: Melatonin 3 MG TABLET 9 MG PO (22:30)
[2024-02-17] MEDS: levoFLOXacin 750 MG TABLET PO (22:31)
[2024-02-17] MEDS: Docusate Sodium 100 MG CAPSULE 200 MG PO (22:31)
[2024-02-17] MEDS: Gabapentin 600 MG TABLET PO (22:31)
[2024-02-17] MEDS: Baclofen 20 MG TABLET 40 MG PO (22:38)
[2024-02-18] VITALS: PULSE 62; RESP 20; TEMP 36.4; O2SAT 95
[2024-02-18 03:51] VITALS: BP 127/71; PULSE 61; RESP 20; TEMP 36.1; O2SAT 97
[2024-02-18 05:37] VITALS: BMI 35.2
[2024-02-18] MEDS: Levothyroxine Sodium 125 MCG TABLET PO (06:06)
[2024-02-18 07:15] LABS: INTERNATIONAL NORM RATIO 1.8 (0.9-1.1); Prothrombin Time 22.4 SEC (11.1-13.3)
[2024-02-18 07:54] VITALS: BP 101/66; PULSE 60; RESP 20; TEMP 36.5; O2SAT 96
[2024-02-18] MEDS: Gabapentin 100 MG CAPSULE PO ×2 (08:50→14:19)
[2024-02-18] MEDS: Midodrine HCl 10 MG TABLET PO ×2 (08:50→14:19)
[2024-02-18] MEDS: Baclofen 20 MG TABLET PO ×2 (08:50→14:19)
[2024-02-18] MEDS: Ferrous Sulfate 324 MG TABLET.DR PO (08:50)
[2024-02-18] MEDS: oxyBUTYnin chloride ER 5 MG TAB.ER.24 10 MG PO (08:50)
[2024-02-18] MEDS: Ascorbic Acid 500 MG TABLET PO (08:50)
[2024-02-18] MEDS: Multivitamin TABLET 1 TAB PO (08:50)
[2024-02-18] MEDS: calcitrioL 0.25 MCG CAPSULE PO (08:50)
[2024-02-18] MEDS: Dicyclomine HCl 10 MG CAPSULE PO ×2 (08:50→14:19)
[2024-02-18] MEDS: Nystatin Powder 15 GM BOTTLE 1 APPL TOPICAL (08:51)
--- NOTE | 2024-02-18 11:30 | MHC.CM.PN ---
Second IMM, 02/18/24, pt has been medically cleared for DC, He will return to his intermediate via BLS this afternoon. Paperwork for MD signature obtained from Joanne [phone]. TYRA spoke to Joanne and provided all requested information.
[2024-02-18 12:00] VITALS: BP 100/68; RESP 20; O2SAT 96
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
--- NOTE | 2024-02-19 00:12 | W.PM.IDCN ---
History of Present Illness Data of Consult Service Date: 02/13/24 Requesting physician: Franklyn Santiago Primary Care Provider: Yulia Mckeon MD HPI Reason for consult: bacteremia He presents with weakness and chills for two days. He has gram negative bacteremia He has no dysuria at this time. Review of Systems Review of Systems: Yes all other systems are reviewed and are negative PMFSH Past Medical History Medical History Atrial fibrillation Chronic restrictive lung disease Pneumonia Urine retention Irreducible left inguinal hernia Autonomic dysfunction Hypothyroidism Hernia Spasms of the hands or feet Spinal cord injury Family History Family History Sister Diabetes mellitus Family history: reviewed and not pertinent Surgical History Surgical History S/P tendon repair H/O hemorrhoidectomy S/P IVC filter H/O hernia repair H/O thyroidectomy Social History Social History Household Members: None Household Members Other:: residential Housing: Assisted Living Facility Housing Other:: residential in [place] Do you presently have visiting nurse or other home services: No Alcohol intake: former Comment: low extremity paralysis Patient Tobacco Use Status: Never used Tobacco Advance Directives Date on File: 01/09/23 service: No Meds Allergies Allergy/AdvReac Type Severity Reaction Status Date / Time dicloxacillin [From DYNAPEN] Allergy Unknown Unknown Verified 02/12/24 14:39 ofloxacin [From FLOXIN] AdvReac Intermediate Abdominal Verified 02/12/24 14:39 Pain penicillin V AdvReac Intermediate Abdominal Verified 02/12/24 14:39 Pain Home Medications ?Medication ?Instructions ?Recorded ?Confirmed ?Last Taken ?Type ascorbic acid (vitamin C) 500 mg 500 mg PO DAILY 03/23/20 02/12/24 03/23/20 History tablet baclofen 10 mg tablet 20 mg PO TID@0900,1300,1700 03/23/20 02/12/24 03/23/20 History baclofen 10 mg tablet 40 mg PO BEDTIME 03/23/20 02/12/24 03/23/20 History calcitriol 0.25 mcg capsule 0.25 mcg PO DAILY 03/23/20 02/12/24 03/23/20 History docusate sodium 100 mg capsule 200 mg PO BEDTIME 03/23/20 02/12/24 03/23/20 History (Colace) cholecalciferol (vitamin D3) 1,250 1,250 mcg PO QMONTH 01/09/23 02/12/24 11/23/23 History mcg (50,000 unit) tablet dicyclomine 10 mg capsule 10 mg PO QID 01/09/23 02/12/24 Unknown History furosemide 20 mg tablet 20 mg PO DAILY 01/09/23 02/12/24 Unknown History gabapentin 100 mg capsule 100 mg PO BID@0800,1400 01/09/23 02/12/24 Unknown History gabapentin 600 mg tablet 600 mg PO BEDTIME 01/09/23 02/12/24 Unknown History melatonin 10 mg tablet 10 mg PO BEDTIME Sleep 01/09/23 02/12/24 Unknown History midodrine 10 mg tablet 10 mg PO TID@0800,1400,2000 01/09/23 02/12/24 Unknown History acetaminophen 325 mg tablet 650 mg PO Q6H PRN 11/26/23 02/12/24 Unknown History headache/fever/bodyaches levothyroxine 125 mcg tablet 125 mcg PO DAILY@0630 11/26/23 02/12/24 Unknown History multivitamin-iron 9 mg-folic acid 1 tab PO DAILY 11/26/23 02/12/24 Unknown History 400 mcg-calcium and minerals tablet nystatin 100,000 unit/gram topical 1 appl topical BID 11/26/23 02/12/24 Unknown History cream nystatin 100,000 unit/gram topical 1 appl topical BID Rash 11/26/23 02/12/24 Unknown History powder (Nyamyc) trazodone 150 mg tablet 75 mg PO BEDTIME 11/26/23 02/12/24 Unknown History warfarin 1 mg tablet 3 mg PO MO@1800 11/26/23 02/13/24 Unknown History warfarin 4 mg tablet 4 mg PO SUTUWETHFRSA@1800 11/26/23 02/13/24 11/25/23 History ferrous sulfate 325 mg (65 mg 325 mg PO DAILY 12/04/23 02/12/24 Unknown History iron) tablet (FeroSul) miconazole nitrate 2 % topical 1 appl topical BID PRN fungal rash 12/04/23 02/12/24 Unknown History cream sennosides 8.6 mg tablet (senna) 8.6 mg PO DAILY PRN Constipation 12/04/23 02/12/24 Unknown History Physical Exam Vital Signs: Vital Signs: Last Vital Signs Temp 97.7 F 02/18/24 07:54 Pulse 60 02/18/24 07:54 Resp 20 02/18/24 12:00 BP 100/68 02/18/24 12:00 Pulse Ox 96 02/18/24 12:00 O2 Del Method Nasal Cannula 02/18/24 12:00 O2 Flow Rate 4 02/18/24 12:00 BMI result Body Mass Index 35.2 Const: General: cooperative HEENT: Head: Yes normal to inspection Face and sinus: Yes normal facial exam Mouth: Normal oral and palatal mucosa present Teeth and gingiva: dentition normal Eyes: General: appearance normal, both eyes and all related structures Pupils: Equal, round and reactive pupils present Resp: Effort & Inspection: normal respiratory effort Cardio: Rate: regular rate Rhythm: regular rhythm GI: Palpation (GI): Soft to palpation and nontender : General: Yes no CVA tenderness Back/Spine/Pelvis: Back: no CVA tenderness Skin: General skin exam: no rashes or lesions noted Neuro: General: moves all extremities Cranial nerves: Yes Equal, round and reactive pupils present Extrem: General: Yes normal to inspection Psych: Appearance: grossly normal Results Labs 02/16/24 05:58 02/16/24 05:58 Microbiology Microbiology Results: Microbiology 02/15/24 05:50 Blood - Venous Blood Culture - Preliminary No growth after 48 hours. 02/15/24 05:50 Blood - Venous Blood Culture - Preliminary No growth after 48 hours. 02/12/24 21:45 Urine Other - Suprapubic Urine Culture - Final Providencia rettgeri 02/12/24 14:53 Blood - Venous Blood Culture - Final Providencia rettgeri 02/12/24 14:51 Blood - Venous Blood Culture - Final Providencia rettgeri Assessment and Plan (1) Gram-negative bacteremia: Status: Acute (2) Acute hypoxic respiratory failure: Status: Acute (3) RAKESH (acute kidney injury): Status: Acute Plan Await final culture Check for urinary source. Likely po antibiotic for total 14-21 d when ID available.
== END 2024-02-18 14:25 | disposition other institution (70) | DRG 698 ==
LOC: HO.ED 17:45 → HO.EDOVER 18:33 → HO.ICU 18:45 → HO.IMC 02-13 16:34
PROVIDERS: Family Medicine; Physician Assistant; Registered Nurse Community Health; Admitting Provider Internal Medicine Pulmonary Disease; Emergency Provider Emergency Medicine; PCP Family Medicine; Visit Provider Hospitalist
DX: T83.518A Infection and inflammatory reaction due to other urinary catheter, initial encounter (principal); A41.9 Sepsis, unspecified organism; G82.54 Quadriplegia, C5-C7 incomplete; L89.313 Pressure ulcer of right buttock, stage 3; L89.623 Pressure ulcer of left heel, stage 3; L89.153 Pressure ulcer of sacral region, stage 3; R65.21 Severe sepsis with septic shock; J96.01 Acute respiratory failure with hypoxia; G93.41 Metabolic encephalopathy; N17.9 Acute kidney failure, unspecified; E03.9 Hypothyroidism, unspecified; I48.0 Paroxysmal atrial fibrillation; G90.9 Disorder of the autonomic nervous system, unspecified; S14.155S Other incomplete lesion at C5 level of cervical spinal cord, sequela; B96.89 Other specified bacterial agents as the cause of diseases classified elsewhere; D63.8 Anemia in other chronic diseases classified elsewhere; V49.9XXS Car occupant (driver) (passenger) injured in unspecified traffic accident, sequela; N31.9 Neuromuscular dysfunction of bladder, unspecified; Z93.3 Colostomy status; Z20.822 Contact with and (suspected) exposure to COVID-19; Z79.01 Long term (current) use of anticoagulants; Z79.890 Hormone replacement therapy; Z79.899 Other long term (current) drug therapy
CPT/HCPCS: 0241U; 36415; 71045; 72100; 72192; 73630; 80048; 80053; 81001; 81003; 82040; 82607; 82728; 82746; 82803; 83540; 83605; 83615; 83735; 83880; 84100; 85025; 85027; 85045; 85610; 87040; 87077; 87086; 87088; 87186; 87205; 99285; J0613; J0696; J1956; J3370; J3371; P9047

== ENCOUNTER → 2024-02-12 17:32 | Outpatient (BNV) | payer MEDICARE, MEDICAID, SELFPAY | PROVIDERS: Admitting Provider Internal Medicine Pulmonary Disease; Emergency Provider Emergency Medicine; PCP Family Medicine; Visit Provider Registered Nurse Community Health | DX: T83.511A Infection and inflammatory reaction due to indwelling urethral catheter, initial encounter (principal); A41.9 Sepsis, unspecified organism; R65.21 Severe sepsis with septic shock; N39.0 Urinary tract infection, site not specified | CPT/HCPCS: 99291 ==

== ENCOUNTER → 2024-02-12 17:32 | Outpatient (BNV) | payer MEDICARE, MEDICAID, SELFPAY | PROVIDERS: Admitting Provider Internal Medicine Pulmonary Disease; Emergency Provider Emergency Medicine; PCP Family Medicine; Visit Provider Internal Medicine | DX: R78.81 Bacteremia (principal); J96.01 Acute respiratory failure with hypoxia; N17.9 Acute kidney failure, unspecified | CPT/HCPCS: 99222 ==

== ENCOUNTER → 2024-02-12 17:32 | Outpatient (BNV) | payer MEDICARE, MEDICAID, SELFPAY | PROVIDERS: Admitting Provider Internal Medicine Pulmonary Disease; Emergency Provider Emergency Medicine; PCP Family Medicine; Visit Provider Family Medicine | DX: R78.81 Bacteremia (principal); I48.91 Unspecified atrial fibrillation | CPT/HCPCS: 99232; 99239; 99499 ==

== ENCOUNTER → 2024-02-12 17:32 | Outpatient (BNV) | payer MEDICARE, MEDICAID, SELFPAY | PROVIDERS: Admitting Provider Internal Medicine Pulmonary Disease; Emergency Provider Emergency Medicine; PCP Family Medicine; Visit Provider Internal Medicine Pulmonary Disease | DX: A41.9 Sepsis, unspecified organism (principal); R65.21 Severe sepsis with septic shock; Z93.59 Other cystostomy status; N31.9 Neuromuscular dysfunction of bladder, unspecified; G82.54 Quadriplegia, C5-C7 incomplete | CPT/HCPCS: 99291 ==

== ENCOUNTER 2024-04-29 04:12 | Inpatient (IN) | payer MEDICARE, MEDICAID, SELFPAY ==
[2024-04-29] VITALS (35 sets, daily range): BP systolic 68–150; BP diastolic 39–110; PULSE 59–110; RESP 10–22; TEMP 35.6–37.7; O2SAT 84–98; BMI 34.9
--- NOTE | ~2024-04-29 | CT_ITS ---
EXAMINATION: CT ABDOMEN AND PELVIS WITH CONTRAST CLINICAL INFORMATION: sepsis, source unclear COMPARISON: CT pelvis 02/22/2024, CT abdomen/pelvis 12/03/2023 TECHNIQUE: Multidetector volumetric images were obtained from the superior aspect of the liver through the pubic symphysis following administration 100 mL of Omnipaque 350 intravenous contrast. Sagittal and coronal reformatted images were obtained on the technologist's workstation. Oral contrast: No This CT examination was performed using dose optimization techniques as appropriate, variously including the following: *Automated exposure control *Adjustment of mA and/or kV according to patient size (this includes techniques or standardized protocols for targeted exams where dose is matched to indication/reason for exam; i.e. extremities or head) *Use of iterative reconstruction technique DLP: 2077 mGy-cm FINDINGS: LUNG BASES: Respiratory motion artifact limits the lung bases. Bibasilar atelectasis. Prominent bilateral epicardial fat pads noted. Cardiomegaly. Small to moderate pericardial effusion, as before. Pacemaker leads partially visualized. Coronary arterial calcifications are present. LIVER, GALLBLADDER, AND BILIARY TREE: The liver is normal in size, shape, and attenuation. No focal hepatic lesion or biliary ductal dilatation is present. Gallbladder not seen, either surgically absent versus decompressed. Motion artifact limits evaluation of the upper abdomen. PANCREAS: Fatty atrophy of the pancreas. SPLEEN: Unremarkable. ADRENAL GLANDS: Unremarkable. KIDNEYS AND URETERS: Dependent punctate calculi in the right ureteropelvic junction, as before. The kidneys are normal in size, shape, and attenuation. No hydronephrosis, hydroureter, or calculi seen. No perinephric stranding. BLADDER: Decompressed and not well assessed with suprapubic catheter in place. GASTROINTESTINAL TRACT: Floyd's pouch noted. Rectal thermometer in place. Left mid abdominal colostomy. The small and large bowel are nondilated. Normal appendix, sagittal images 148-158. ABDOMINAL WALL: Left mid abdominal colostomy. Small fat-containing right inguinal hernia. Status post left herniorrhaphy with moderate sized residual fluid-containing left inguinal hernia. LYMPH NODES: Normal. VASCULAR: The aorta is nonaneurysmal with moderate scatter from this calcifications. IVC filter in place with the tines extending beyond the vessel wall. PELVIC VISCERA: Dystrophic calcifications in the central prostate. Normal CT appearance of seminal vesicles. OSSEOUS STRUCTURES: No acute or suspicious osseous abnormality. Moderate L4-L5 degenerative disc disease, as before. Increased bone density diffusely as before. CT/CT abdomen pelvis w IV con IMPRESSION: 1. No acute abnormality within the abdomen or pelvis. 2. Dependent punctate calculi in the right ureteropelvic junction, as before. No hydronephrosis. 3. Status post left herniorrhaphy with moderate sized residual fluid-containing left inguinal hernia. 4. Cardiomegaly with small to moderate pericardial effusion, as before. Fleischner guidelines were followed. Electronically signed by: Jessica Foster DO 04/29/2024 01:45 PM [facility]
--- NOTE | ~2024-04-29 | XR_ITS ---
EXAMINATION: XR CHEST CLINICAL INFORMATION: low oxygen sats, sepsis COMPARISON: Chest radiograph 02/12/2024 TECHNIQUE: Frontal view of the chest was obtained. FINDINGS: Again seen is marked cardiomegaly and a single lead left chest wall pacemaker with leads in good position. Bilateral small pleural effusions are likely present. Some bibasilar atelectasis is seen, right greater than left. No gross CHF. XR/XR chest 1V IMPRESSION: Cardiomegaly with probable small pleural effusions and bibasilar atelectasis. Electronically signed by: Frank Bertrand MD 04/29/2024 08:32 AM [facility]
[2024-04-29 04:52] LABS: Basophils Absolute Auto 0.1 X10*3/uL (0.0-0.2); Basophils Percent Auto 0.4 % (0-2); Eosinophils Absolute Auto 0.2 X10*3/uL (0.0-0.4); Eosinophils Percent Auto 1.9 % (0-4); Hematocrit 36.2 % (42.0-52.0); Hemoglobin 11.8 g/dl (14.0-18.0); Imm Gran Abs Auto 0.08 X10*3/uL (0.00-0.03); Imm Gran Pct Auto 0.6 % (0.0-0.4); Lymphocytes Absolute Auto 2.1 X10*3/uL (1.2-4.9); Lymphocytes Percent Auto 17.1 % (20-40); MANUAL DIFF FLAG NO; Mean Corpuscular HGB Conc 32.6 g/dl (31.0-36.0); Mean Corpuscular Hemoglobin 28.6 pg (27.0-33.0); Mean Corpuscular Volume 87.9 fL (80.0-98.0); Monocytes Absolute Auto 1.1 X10*3/uL (0.1-1.2); Monocytes Percent Auto 8.8 % (2-11); Neutrophils Absolute Auto 8.8 x10*3/uL (2.0-8.3); Neutrophils Percent Auto 71.2 % (45-73); Platelet Count 233 X10*3/uL (160-400); Red Blood Count 4.12 X10*6/uL (4.60-5.80); Red Cell Distribution Width 16.4 % (11.0-16.0); White Blood Count 12.3 X10*3/uL (4.8-10.8)
--- NOTE | 2024-04-29 05:04 | ED_ITS ---
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 He has a chronic suprapubic catheter. Tonight it was noticed that his catheter was not draining and he was sent to the emergency department. The patient seemed very groggy and was not able to give any additional significant history. Staff at his retirement felt that he might be having visual hallucinations. The patient is paraplegic and bed-bound and is transferred from a bed to a wheelchair with a Rolly lift. Related Data Home Medications ?Medication ?Instructions ?Recorded ?Confirmed ascorbic acid (vitamin C) 500 mg 500 mg PO DAILY 03/23/20 04/29/24 tablet baclofen 10 mg tablet 20 mg PO TID@0900,1300,1700 03/23/20 04/29/24 baclofen 10 mg tablet 40 mg PO BEDTIME 03/23/20 04/29/24 calcitriol 0.25 mcg capsule 0.25 mcg PO DAILY 03/23/20 04/29/24 docusate sodium 100 mg capsule 200 mg PO BEDTIME 03/23/20 04/29/24 (Colace) cholecalciferol (vitamin D3) 1,250 1,250 mcg PO QMONTH 01/09/23 04/29/24 mcg (50,000 unit) tablet dicyclomine 10 mg capsule 10 mg PO QID 01/09/23 04/29/24 furosemide 20 mg tablet 20 mg PO DAILY 01/09/23 04/29/24 gabapentin 100 mg capsule 100 mg PO BID@0800,1400 01/09/23 04/29/24 gabapentin 600 mg tablet 600 mg PO BEDTIME 01/09/23 04/29/24 melatonin 10 mg tablet 10 mg PO BEDTIME Sleep 01/09/23 04/29/24 midodrine 10 mg tablet 10 mg PO TIDAC 01/09/23 04/29/24 acetaminophen 325 mg tablet 650 mg PO Q6H PRN 11/26/23 04/29/24 headache/fever/bodyaches levothyroxine 125 mcg tablet 125 mcg PO DAILY@0630 11/26/23 04/29/24 nystatin 100,000 unit/gram topical 1 appl topical BID Rash 11/26/23 04/29/24 powder (Nyamyc) trazodone 150 mg tablet 75 mg PO BEDTIME 11/26/23 04/29/24 ferrous sulfate 325 mg (65 mg 325 mg PO DAILY 12/04/23 04/29/24 iron) tablet (FeroSul) miconazole nitrate 2 % topical 1 appl topical BID PRN fungal rash 12/04/23 04/29/24 cream sennosides 8.6 mg tablet (senna) 8.6 mg PO DAILY PRN Constipation 12/04/23 04/29/24 apixaban 5 mg tablet (Eliquis) 5 mg PO BID 04/29/24 04/29/24 Previous Rx's ?Medication ?Instructions ?Recorded tramadol 50 mg tablet 50 mg PO Q8H PRN Pain, 01/10/23 Moderate(Pain Scale 4-6) #14 tabs methenamine hippurate 1 gram tablet 1 g PO BID #180 tabs 12/06/23 oxybutynin chloride 10 mg 10 mg PO DAILY #90 tabs 12/06/23 tablet,extended release 24 hr Allergies Allergy/AdvReac Type Severity Reaction Status Date / Time dicloxacillin [From DYNAPEN] Allergy Unknown Unknown Verified 04/29/24 04:26 ofloxacin [From FLOXIN] AdvReac Intermediate Abdominal Verified 04/29/24 04:26 Pain penicillin V AdvReac Intermediate Abdominal Verified 04/29/24 04:26 Pain Review of Systems 2 Review of Systems: Yes Unobtainable due to mental status [facility] Past Medical History Medical History Atrial fibrillation Chronic restrictive lung disease Pneumonia Urine retention Irreducible left inguinal hernia Autonomic dysfunction Hypothyroidism Hernia Spasms of the hands or feet Spinal cord injury Surgical History S/P tendon repair H/O hemorrhoidectomy S/P IVC filter H/O hernia repair H/O thyroidectomy Family History Family History Sister Diabetes mellitus Social History Social History Household Members: None Household Members Other:: retirement Housing: Assisted Living Facility Housing Other:: retirement in [place] Do you presently have visiting nurse or other home services: No Alcohol intake: former Comment: low extremity paralysis Patient Tobacco Use Status: Never used Tobacco Smoked in Last 30 Days: No Use of substances other than those prescribed or required for medical reasons: No Advance Directives: Yes Advance Directives on File: Yes Advance Directives Date on File: 01/09/23 Do you have a plan to hurt others: No Plan service: No Physical Exam 2 Vital Signs: Vital Signs: Last Vital Signs Temp 96.5 F L 04/29/24 08:32 Pulse 60 04/29/24 08:59 Resp 12 04/29/24 08:32 BP 80/41 L 04/29/24 08:59 Pulse Ox 98 04/29/24 08:32 O2 Del Method Oxymask 04/29/24 08:32 O2 Flow Rate 2 04/29/24 08:32 BMI result Body Mass Index 34.9 Const: Other: The patient is a very chronically ill-appearing man who seemed very confused and groggy. With significant stimulation he arouses and is able to answer simple questions. He was able to give his address correctly HEENT: Other: Face was symmetrical. Mucous membranes were slightly dry. This seems to be because he has a mouth breather. Eyes: Other: Pupils are small and equal, extraocular movements are intact, conjunctivae clear Neck: Neck: Yes no lymphadenopathy and Yes supple Resp: Other: No increased work of breathing. He is primarily a mouth breather. Breath sounds do not really reveal any crackles or wheezes. Cardio: Other: The patient has an irregular rate and rhythm, no definite murmur GI: Other: The patient has a large, protuberant abdomen. He has a colostomy. He has a suprapubic catheter. He is not seem obviously tender. Skin: Other: The patient has a lot of skin breakdown in the sacral and buttock area. Neuro: Other: The patient is somnolent but arousable with noxious stimuli. When he speaks his speech seems fairly clear. His face seems symmetrical. He has some use of his upper extremities. He does not seem to have any use of his lower extremities. Extrem: Other: The patient has atrophied lower extremities. He wears skin protectors on his ankles. Course Reevaluation(s) Reevaluation #1: Focused sepsis exam done. The patient remains stable. He still responds to loud stimuli. Time: 09:41 Medications Administered Generic Name Dose Route Start Last Admin Trade Name Freq PRN Reason Stop Dose Admin Norepinephrine Bitartrate 8 mg in 250 mls @ 0 mls/hr 04/29/24 07:30 04/29/24 08:59 Levophed IVCONT 0.05 mcg/kg/min .Q0M SACHIN 12.18 mls/hr Titration Protocol Per Protocol Lactated Ringer's 1,000 mls @ 999 mls/hr 04/29/24 08:45 04/29/24 08:42 Lr IV 04/29/24 09:45 999 mls/hr .Q1H1M SACHIN Administration Discontinued Medications Generic Name Dose Route Start Last Admin Trade Name Freq PRN Reason Stop Dose Admin Ceftriaxone Sodium 1 gm 04/29/24 05:59 04/29/24 06:16 Ceftriaxone Sodium 1 Gm Vial IVPUSH 04/29/24 06:00 1 gm ONCE ONE Administration Lactated Ringer's 1,000 mls @ 999 mls/hr 04/29/24 06:00 04/29/24 06:30 Lr IV 04/29/24 07:00 Infused .Q1H1M SACHIN Infusion Lactated Ringer's 1,000 mls @ 999 mls/hr 04/29/24 06:45 04/29/24 07:24 Lr IV 04/29/24 07:45 Infused .Q1H1M SACHIN Infusion Lactated Ringer's 1,000 mls @ 999 mls/hr 04/29/24 06:45 04/29/24 07:14 Lr IV 04/29/24 07:45 Infused .Q1H1M SACHIN Infusion Lidocaine HCl 10 ml 04/29/24 05:04 04/29/24 05:31 Lidocaine Hcl 2 % Urojet 10 Ml Jel.Pf.Merari TOPICAL 04/29/24 05:05 10 ml ONCE ONE Administration Medical Decision Making Medical Decision Making MDM Narrative: The patient is a chronically ill 68-year-old male with a history of paraplegia who lives at a retirement. He is nonambulatory and requires a Rolly lift to transfer him from his bed to a wheelchair. He has a chronic indwelling suprapubic catheter. The patient was sent to the emergency room because his catheter did not seem to be functioning. Bladder scan showed urinary retention. I changed his catheter, an 18 [place] with a 30 mL balloon. The change was very easy and his bladder drained. Patient was not initially hypotensive but after his catheter was changed in his bladder was drained his blood pressure dropped. At 1st it was not clear if this was some kind of a relaxation response from the decompression of his bladder or whether this might indicate other illness. He did not have a fever with a rectal temperature. He is not tachycardic. His urinalysis was suggestive of a UTI. He was given ceftriaxone after blood cultures were drawn. His lactate was normal. He has a mildly elevated CRP. Procalcitonin is not significantly elevated. The patient was given a total of 3 L of lactated Ringer's as well as 1 g of ceftriaxone IV. He had persistent hypotension despite this. Ultimately he was started on peripheral pressors, norepinephrine. His blood pressure responded very easily to low-dose norepinephrine. The patient has a lot of skin breakdown to his buttock and sacral area. The patient was therefore also given vancomycin IV. The patient will be admitted to the intensive care unit. Lab Data 04/29/24 04:48 04/29/24 04:48 Labs: Lab Results 04/29/24 04/29/24 04/29/24 Range/Units 04:48 05:21 06:09 WBC 12.3 H (4.8-10.8) X10*3/uL RBC 4.12 L (4.60-5.80) X10*6/uL Hgb 11.8 L (14.0-18.0) g/dl Hct 36.2 L (42.0-52.0) % MCV 87.9 (80.0-98.0) fL MCH 28.6 (27.0-33.0) pg MCHC 32.6 (31.0-36.0) g/dl RDW 16.4 H (11.0-16.0) % Plt Count 233 D (160-400) X10*3/uL MPV 9.0 L (9.4-12.4) fL Immature Gran % (Auto) 0.6 H (0.0-0.4) % Neut % (Auto) 71.2 (45-73) % Lymph % (Auto) 17.1 L (20-40) % [place] % (Auto) 8.8 (2-11) % Eos % (Auto) 1.9 (0-4) % Baso % (Auto) 0.4 (0-2) % Lymph # (Auto) 2.1 (1.2-4.9) X10*3/uL [place] # (Auto) 1.1 (0.1-1.2) X10*3/uL Eos # (Auto) 0.2 (0.0-0.4) X10*3/uL Baso # (Auto) 0.1 (0.0-0.2) X10*3/uL Abs Immat Gran (auto) 0.08 H (0.00-0.03) X10*3/uL Absolute Neuts (auto) 8.8 H (2.0-8.3) x10*3/uL Absolute Nucleated RBC 0.000 (0.0-0.012) X10*3/uL Nucleated RBC % (auto) 0.0 (0.0-0.2) /100WBC Sodium 139 (135-145) mmol/L Potassium 4.6 (3.3-5.1) mmol/L Chloride 101 (96-108) mmol/L Carbon Dioxide 26 (22-29) mmol/L Anion Gap 17 (12-20) BUN 28 H (9-16) mg/dL Creatinine 1.24 (0.5-1.4) mg/dL Estim Creat Clear Calc 85.0 Estimated GFR 58 Random Glucose 93 (60-115) mg/dL Lactic Acid 1.8 (0.5-2.0) mmol/L Calcium 9.2 D (8.4-10.2) mg/dL Total Bilirubin 0.5 (0.0-1.0) mg/dL AST 17 (5-37) U/L ALT 16 (0-40) U/L Alkaline Phosphatase 96 (39-117) U/L C-Reactive Protein 5.68 H (< or = 0.50) mg/dL Total Protein 7.1 (6.5-8.0) g/dL Albumin 3.8 (3.5-5.0) g/dL Procalcitonin 0.09 ng/mL Urine Color Yellow Urine Appearance Cloudy Urine pH 6.0 (5.0-9.0) Ur Specific [place] 1.015 (1.005-1.025) Urine Protein 100 (2+) H (Neg-Trace) mg/dL Urine Glucose (UA) Negative (Negative) mg/dL Urine Ketones Negative (Negative) mg/dL Urine Blood Moderate (2+) H (Negative) Urine Nitrite Negative (Negative) Ur Leukocyte Esterase Large (3+) H (Negative) Urine RBC >20 H (0-2) /HPF Urine WBC >50 H (0-5) /HPF Ur Squamous Epith Cells 0-2 (0-2) /HPF Urine Bacteria None Seen (None Seen) Hyaline Casts 3-5 (0-2) /LPF Critical Care Time Critical Care Time Critical Care Time: Yes Total Critical Care Time: 35 Attestation: The patient was critically ill with a high probability of imminent or life- threatening deterioration. ?I spent greater than 30 minutes of discontinuous time evaluating the patient, delivering critical care at the bedside, discussing evaluating data with consultants. ?Critical care time does not include time spent performing separately billable procedures or teaching. ?Time spent performing critical care with35 minutes. Discharge Plan Discharge Clinical Impression: Sepsis due to urinary tract infection Patient Disposition: Admitted As Inpatient Print Language: Kyrgyz
[2024-04-29 05:14] LABS: Alanine Aminotransferase 16 U/L (0-40); Albumin Level 3.8 g/dL (3.5-5.0); Alkaline Phosphatase 96 U/L (39-117); Anion Gap 17 (12-20); Aspartate Amino Transferase 17 U/L (5-37); Bilirubin Total 0.5 mg/dL (0.0-1.0); Blood Urea Nitrogen 28 mg/dL (9-16); Calcium 9.2 mg/dL (8.4-10.2); Carbon Dioxide 26 mmol/L (22-29); Chloride 101 mmol/L (96-108); Estimated Glomerular Filt Rate 58; Glucose Random 93 mg/dL (60-115); Potassium 4.6 mmol/L (3.3-5.1); Sodium 139 mmol/L (135-145); Total Protein 7.1 g/dL (6.5-8.0)
[2024-04-29 05:27] LABS: Appearance Urine Cloudy; Color Urine Yellow; Glucose Urine UA Negative (Negative); Leukocyte Esterase Urine Large (3+) (Negative); Nitrite Urine Negative (Negative); Specific Gravity - Urine 1.015 (1.005-1.025); UMIC TRIGGER UACC YES; Urine Blood Moderate (2+) (Negative); Urine Ketones Negative (Negative); Urine Protein 100 (2+) mg/dL (Neg-Trace)
[2024-04-29] MEDS: Lidocaine HCl 2 % Urojet 10 ML JEL.PF.APP TOPICAL (05:31)
[2024-04-29 05:34] LABS: Bacteria Urine None Seen (None Seen); RBC Urine >20 /HPF (0-2); Squamous Epithelial Cell Urine 0-2 /HPF (0-2); UACC Culture Trigger YES; WBC Urine >50 /HPF (0-5)
[2024-04-29] MEDS: Lactated Ringers 1,000 ML 999 ML IV ×4 (06:06→08:42)
[2024-04-29] MEDS: cefTRIAXone sodium 1 GM VIAL IVPUSH (06:16)
--- NOTE | 2024-04-29 06:18 | MHC.EDTECH ---
Patient BIBA,changed into hospital attire,placed pt on the evaluation analyst,vitals taken,rectal temp of 99.9,BP is low 77/43,O2 sats at 84%,RN at bedside and placed pt on 6L V NC,sats are up to 97%,blood cultures/lactic drawn and sent to lab,BP has came up at this time 105/69. staff member from assisted at bedside
[2024-04-29 06:19] LABS: C Reactive Protein 5.68 mg/dL (< or = 0.50)
--- NOTE | 2024-04-29 06:21 | PC.NURSE ---
Patient DOMINIC Decker #1 from a custodial for evaluation of not draining suprapubic cath, visual hallucinations. Patient is paraplegic, bed bound, transfers from a bed to a w/c with Rolly lift. 20 G IV line established in L AC, labs drawn and sent to lab for processing. Bladder scanned with 310 mL of urine noted. Dr. Becerra at bedside, MD changed 18 Fr suprapubic cath, balloon inflated with 30 mL by MD. After suprapubic catheter change BP noted to be low 80's/50's systolic. Patient's O2 Sat 84-88% RA. Patient placed in Trendelenburg's. Patient placed on 6 LPM NC with improvement in O2 Sats to 94-95%. Dr. Guerra made aware. Lactic and 2 sets of blood cultures drawn, second 20 G IV line inserted to R hand. Sandeep of LR started with improvement in BP 106/64.
[2024-04-29 06:29] LABS: Lactic Acid 1.8 mmol/L (0.5-2.0)
--- NOTE | 2024-04-29 06:39 | PC.NURSE ---
BP noted to be back to low, 78/46, Dr. Becerra notified, verbal order obtained to start second 1 L bag of LR at bolus rate.
--- NOTE | 2024-04-29 06:39 | MHC.EDTECH ---
Continuos rectal probe placed at this time,temp is 98.2,BP is low 78/46,RN at bedside
[2024-04-29 06:48] LABS: Procalcitonin 0.09 ng/mL
[2024-04-29] MEDS: Norepinephrine Bitartrate/D5W 8 MG/250 ML PLAST..BAG 12.18 MG IVCONT (07:48)
--- NOTE | 2024-04-29 07:49 | PHA.MEDREC ---
Pharmacy Consult ? Medication Reconciliation Pharmacy has completed the medication reconciliation. Utilized med list from facility. Since last admission ins February, pt has moved from Warfarin to Eliquis 5mg BID that was filled at the beginning of April.
--- NOTE | 2024-04-29 08:31 | PC.NURSE ---
Per MD Becerra stop levophed and hang 4th liter of crystalloids
[2024-04-29] MEDS: vancomycin/NS 2,000 MG/500 ML PLAST..BAG 250 MG IV (09:15)
--- NOTE | 2024-04-29 09:25 | PM.CCHP ---
History of Present Illness Date of Service: 04/29/24 Attending physician on admission: Soledad Elias Chief Complaint: Sepsis Patient is a 68 Y M with prior spinal cord injury c/b paraplegia, neurogenic bladder w/ chronic suprapubic catheter c/b recurrent urinary tract infections, colostomy, and sacral decubitus ulcer, paroxysmal atrial fibrillation on apixaban, and hypothyeroidism, presenting to the emergency department from [facility] on 04/29 w/ c/f suprapubic catheter malfunction, for which catheter exchanged in emergency department, though found to be hypotensive, c/f sepsis Review of Systems Review of Systems: Yes Unobtainable due to mental condition and Unobtainable due to mental status PMFSH Past Medical History Medical History Atrial fibrillation Chronic restrictive lung disease Pneumonia Urine retention Irreducible left inguinal hernia Autonomic dysfunction Hypothyroidism Hernia Spasms of the hands or feet Spinal cord injury Family History Family History Sister Diabetes mellitus Surgical History Surgical History S/P tendon repair H/O hemorrhoidectomy S/P IVC filter H/O hernia repair H/O thyroidectomy Social History Social History Household Members: None Household Members Other:: [facility] Housing: Assisted Living Facility Housing Other:: [facility] in [place] Do you presently have visiting nurse or other home services: No Alcohol intake: former Comment: low extremity paralysis Patient Tobacco Use Status: Never used Tobacco Smoked in Last 30 Days: No Use of substances other than those prescribed or required for medical reasons: No Advance Directives: Yes Advance Directives on File: Yes Advance Directives Date on File: 01/09/23 Do you have a plan to hurt others: No Plan service: No Meds Allergies Allergy/AdvReac Type Severity Reaction Status Date / Time dicloxacillin [From DYNAPEN] Allergy Unknown Unknown Verified 04/29/24 04:26 ofloxacin [From FLOXIN] AdvReac Intermediate Abdominal Verified 04/29/24 04:26 Pain penicillin V AdvReac Intermediate Abdominal Verified 11/25/24 04:26 Pain Active Medications: Current Medications Norepinephrine Bitartrate (Levophed) 8 mg in 250 mls @ 0 mls/hr IVCONT .Q0M [facility]; Protocol Last Titration: 04/29/24 08:59 Dose: 0.05 mcg/kg/min, 12.18 mls/hr Lactated Ringer's (Lr) 1,000 mls @ 999 mls/hr IV .Q1H1M [facility] Stop: 04/29/24 09:45 Last Admin: 04/29/24 08:42 Dose: 999 mls/hr Vancomycin HCl (Vancomycin/Ns) 2,000 mg in 500 mls @ 250 mls/hr IV ONCE ONE Stop: 04/29/24 10:59 Meropenem (Meropenem 1 Gm Vial) 1 gm IVPUSH Q8H [facility] Pharmacy Consult (Consult Rx Vancomycin Dosing) 1 each MISCELLANE DAILY PRN PRN Reason: Consult order Home Medications ?Medication ?Instructions ?Recorded ?Confirmed ?Last Taken ?Type ascorbic acid (vitamin C) 500 mg 500 mg PO DAILY 03/23/20 04/29/24 03/23/20 History tablet baclofen 10 mg tablet 20 mg PO TID@0900,1300,1700 03/23/20 04/29/24 03/23/20 History baclofen 10 mg tablet 40 mg PO BEDTIME 03/23/20 04/29/24 03/23/20 History calcitriol 0.25 mcg capsule 0.25 mcg PO DAILY 03/23/20 04/29/24 03/23/20 History docusate sodium 100 mg capsule 200 mg PO BEDTIME 03/23/20 04/29/24 03/23/20 History (Colace) cholecalciferol (vitamin D3) 1,250 1,250 mcg PO QMONTH 01/09/23 04/29/24 11/23/23 History mcg (50,000 unit) tablet dicyclomine 10 mg capsule 10 mg PO QID 01/09/23 04/29/24 Unknown History furosemide 20 mg tablet 20 mg PO DAILY 01/09/23 04/29/24 Unknown History gabapentin 100 mg capsule 100 mg PO BID@0800,1400 01/09/23 04/29/24 Unknown History gabapentin 600 mg tablet 600 mg PO BEDTIME 01/09/23 04/29/24 Unknown History melatonin 10 mg tablet 10 mg PO BEDTIME Sleep 01/09/23 04/29/24 Unknown History midodrine 10 mg tablet 10 mg PO TIDAC 01/09/23 04/29/24 Unknown History acetaminophen 325 mg tablet 650 mg PO Q6H PRN 11/26/23 04/29/24 Unknown History headache/fever/bodyaches levothyroxine 125 mcg tablet 125 mcg PO DAILY@0630 11/26/23 04/29/24 Unknown History nystatin 100,000 unit/gram topical 1 appl topical BID Rash 11/26/23 04/29/24 Unknown History powder (Nyamyc) trazodone 150 mg tablet 75 mg PO BEDTIME 11/26/23 04/29/24 Unknown History ferrous sulfate 325 mg (65 mg 325 mg PO DAILY 12/04/23 04/29/24 Unknown History iron) tablet (FeroSul) miconazole nitrate 2 % topical 1 appl topical BID PRN fungal rash 12/04/23 04/29/24 Unknown History cream sennosides 8.6 mg tablet (senna) 8.6 mg PO DAILY PRN Constipation 12/04/23 04/29/24 Unknown History apixaban 5 mg tablet (Eliquis) 5 mg PO BID 04/29/24 04/29/24 Unknown History Physical Exam Vital Signs: Vital Signs: Last Vital Signs Temp 96.5 F L 04/29/24 08:32 Pulse 60 04/29/24 08:59 Resp 12 04/29/24 08:32 BP 80/41 L 04/29/24 08:59 Pulse Ox 98 04/29/24 08:32 O2 Del Method Oxymask 04/29/24 08:32 O2 Flow Rate 2 04/29/24 08:32 BMI result Body Mass Index 34.9 Const: Other: somnolent, though maintaining secretions, airway General: no acute distress and well developed Orientation/consciousness: No patient oriented x3 HEENT: Head: Yes normal to inspection, Yes normocephalic and Yes atraumatic Eyes: General: appearance normal, both eyes and all related structures Neck: Neck: Yes normal visual inspection, Yes full ROM, Yes no meningeal signs, Yes trachea midline and Yes supple Chest: Chest palpation & inspection: normal inspection of the chest Resp: Other: some appreciable rhonchi and wheezing; no appreciable rales Effort & Inspection: normal respiratory effort Cardio: Rate: regular rate Rhythm: regular rhythm GI: Other: appreciable suprapubic catheteter, clean, dry, w/o surrounding erythema, edema, fluctuance, induration Inspection: Yes normal to inspection, No Abdominal wall edema and No distended Palpation (GI): Soft to palpation, not firm, nontender, no guarding and not rigid Neuro: General: No patient oriented x3 and no meningeal signs Extrem: Other: appreciable 1+ pitting edema bilateral hands General: Yes capillary refill normal Psych: Other: unable to assess Results Labs 04/29/24 04:48 04/29/24 04:48 Labs: Laboratory Results - last 24 hr 04/29/24 04/29/24 04/29/24 04:48 05:21 06:09 MCV 87.9 MCH 28.6 MCHC 32.6 RDW 16.4 H Plt Count 233 D MPV 9.0 L Immature Gran % (Auto) 0.6 H Neut % (Auto) 71.2 Lymph % (Auto) 17.1 L Esmeralda % (Auto) 8.8 Eos % (Auto) 1.9 Baso % (Auto) 0.4 Lymph # (Auto) 2.1 Esmeralda # (Auto) 1.1 Eos # (Auto) 0.2 Baso # (Auto) 0.1 Abs Immat Gran (auto) 0.08 H Absolute Neuts (auto) 8.8 H Absolute Nucleated RBC 0.000 Nucleated RBC % (auto) 0.0 Anion Gap 17 Estim Creat Clear Calc 85.0 Estimated GFR 58 Random Glucose 93 Lactic Acid 1.8 Calcium 9.2 D Total Bilirubin 0.5 AST 17 ALT 16 Alkaline Phosphatase 96 C-Reactive Protein 5.68 H Total Protein 7.1 Albumin 3.8 Procalcitonin 0.09 Urine Color Yellow Urine Appearance Cloudy Urine pH 6.0 Ur Specific [place] 1.015 Urine Protein 100 (2+) H Urine Glucose (UA) Negative Urine Ketones Negative Urine Blood Moderate (2+) H Urine Nitrite Negative Ur Leukocyte Esterase Large (3+) H Urine RBC >20 H Urine WBC >50 H Ur Squamous Epith Cells 0-2 Urine Bacteria None Seen Hyaline Casts 3-5 Imaging Radiologist's Impressions: Impressions Chest X-Ray 04/29/24 07:55 IMPRESSION: Cardiomegaly with probable small pleural effusions and bibasilar atelectasis. Electronically signed by: Frank Bertrand MD 04/29/2024 08:32 AM [facility] Assessment and Plan (1) Suprapubic catheter dysfunction: Qualifiers: Encounter type: initial encounter Qualified Code(s): T83.010A - Breakdown (mechanical) of cystostomy catheter, initial encounter Status: Acute (2) Sepsis due to urinary tract infection: Status: Acute (3) Encephalopathy: Qualifiers: Encephalopathy type: toxic metabolic Qualified Code(s): G92.8 - Other toxic encephalopathy Status: Acute Plan Patient is a 68 Y M with prior spinal cord injury c/b paraplegia, neurogenic bladder w/ chronic suprapubic catheter c/b recurrent urinary tract infections, colostomy, and sacral decubitus ulcer, paroxysmal atrial fibrillation on anticoagulation, and hypothyeroidism, presenting to the emergency department from [facility] on 04/29 w/ c/f suprapubic catheter malfunction, for which catheter exchanged in emergency department, though found to be hypotensive, c/f sepsis N: encephalopathy, likely toxic-metabolic, to monitor closely; to resume home baclofen when PO CV: shock, c/f distributive shock in setting of urosepsis, norepinephrine gtt; of note, patient appears to be on midodrine, to resume when PO R: no acute issues GI: NPO, advance diet as tolerated; to follow-up CT A/P read : acute renal insufficiency, to monitor electrolytes, renal indices closely H: no acute issues; atrial fibrillation on apixaban vs warfarin, to clarify and resume when PO ID: c/f urosepsis; prior UCx demonstrating provendicia, morganella, and pseudomonas; empiric meropenem, vancomycin; to follow-up UCx, BCx INT: decubitus ulcer, wound care as needed E: hypothyroidism, to resume home levothyroxine; to monitor hypo-/hyper-glycemia P: no acute issues
--- NOTE | 2024-04-29 09:34 | ECG_ITS ---
Test Reason : SEPSIS Blood Pressure : / mmHG Vent. Rate : 061 BPM Atrial Rate : 060 BPM P-R Int : 000 ms QRS Dur : 132 ms QT Int : 490 ms P-R-T Axes : 000 -34 026 degrees QTc Int : 493 ms Ventricular-paced rhythm Abnormal ECG When compared with ECG of 03-DEC-2023 21:56, No significant change was found Referred By: Charlie Becerra Electronically Signed By:BRENDA DENNISON
[2024-04-29] MEDS: iohexoL 350 MG/ML 100 ML INFUS..BTL IV (10:04)
--- NOTE | 2024-04-29 10:04 | PHA.PROG ---
Admission Date/Time: April 29, 2024 09:17 Indication: Sepsis Weight in k.9 kg Serum Creatinine - Last 168 Hours 04/29/24 04:48 Creatinine 1.24 Estimated CrCl and GFR - Last 168 Hours 04/29/24 04:48 Estim Creat Clear Calc 85.0 Estimated GFR 58 Vancomycin Loading Dose: 2,000 mg Current Vancomycin Dosing Regimen: 1,000 mg q12h Vancomycin Monitoring using AUC goal of 400 - 600 range with trough as surrogate marker: 477, predicted trough 16.4 Date and Time for next Vancomycin Level to be drawn: 04/30 @ 1900 Pharmacist Comments on Vancomycin Plan: Vancomycin dosing will take advantage of [employer] as a clinical decision support tool that uses Bayesian modeling to calculate individual patient's pharmacokinetic parameters and forecast the patient's drug concentration time course with the target goal AUC 24 range of 400 - 600 mg/L/hr.
--- NOTE | 2024-04-29 10:30 | PC.NURSE ---
Report to SIDE DOOR WORKERFLO Valderrama.
--- NOTE | 2024-04-29 10:40 | PC.NURSE ---
PABLOG drawn and sent to lab
[2024-04-29 10:46] LABS: Venous Blood Gas Refer to POC result
[2024-04-29 10:47] LABS: VBG Base Excess 6.4 mmol/L; VBG HCO3 31 mmol/L (22-26); VBG pCO2 44 mmHg; VBG pH 7.45 (7.32-7.43); VBG pO2 132 mmHg
[2024-04-29] MEDS: Meropenem 1 GM VIAL IVPUSH ×2 (12:29→20:00)
[2024-04-29 13:54] LABS: TSH reflex Free T4 4.07 uIU/mL (0.32-4.0)
[2024-04-29 14:31] LABS: Free T4 (Free Thyroxine) 0.87 ng/dL (0.71-1.85)
--- NOTE | 2024-04-29 14:50 | HO.SKINPHOTO ---
Location: bilateral Buttocks Location: right posterior lower extremity Location:left anterior lower extremity Location: left heel
--- NOTE | 2024-04-29 16:11 | HO.WOUND ---
Wound Consult:Initial 68yr old Male? admitted to [facility] on 04/29/24 09:17 - See progress notes and H&P for detailed history.? Wound consult placed for multiple pressure injuries present on admission.? Patient is a paraplegic at baseline and wheelchair bound for mobility. Treats at the outpt wound clinic and has previous injury left heel, coccyx, and Ischium. Patient is well known to this typewriter mechanic from previous admissions. The patient is a poor historian at times due to memory baseline but is non-interactive at this time. In past consultations patient reported he was routinely strapped into his wheelchair and he believed the wounds to the left foot and right lateral leg are consistent with the straps. Right Lateral Leg - Deep Tissue Injury - POA Suspect Device related - per history consistent with strap that holds his foot in his chair Etiology: Deep tissue injury - ?Present on Admission - Device related Wound bed - red purple maroon nonblanchable tissue - irregular patterns noted - appears full thickness Periwound: dry scaling tissue Goals of Treatment: ? Durafiber AG for moisture management Left Heel Etiology: Stage 3 Pressure Injury - ?Present on Admission Wound bed - red moist full thickness tissue loss Periwound: scar tissue noted, dry scaling tissue red purple nonblanchable areas within periwound Goals of Treatment: ? Heel protector boots in place - Durafiber AG with ABd pad applied for moisture management Buttock coccyx and posterior thighs and scrotum shows significant signs of chronic MASD (Moisture Associated Skin Damage). It is unclear where the moisture is originating from suspect his penis or leaking from the suprapubic cath site. Left Cifuentes - Suspect DTI on Admission - wound bed appears dry and fragile - recommend Durafiber AG to continue to keep dry and stable. Coccyx - Previously documented?Stage 3 Pressure Injury ?unable to assess at this time will assess at future assessment Goals of Treatment: ? Triad to allow for moist wound healing and to protect from friction and moisture Right Buttock - Previously documented Stage 3 Pressure Injury ?unable to assess at this time will assess at future assessment Goals of Treatment: ? Triad to allow for moist wound healing and to protect from friction and moisture Buttock posterior thighs, scrotum and bilateral groin - MASD (Moisture Associated Skin Damage) - Various areas of partial thickness tissue loss in patterns of friction and chronic MASD. The pigmentation of maroon, red, light purple is blanchable. Triad to protect from moisture and friction. Pressure injury prevention measures should continue to be employed to protect the skin from further pressure injury development. Direct care team to obtain Low Air Loss Pump, continue with Q2hr turns with wedges, heel protector boots to be continued. Right Heel - previously documented DTI intact at this time. Left Dorsal foot - Previously Deep Tissue Injury Patient should continue to follow up with outpt wound clinic at time of discharge. Recommendations: 1. Turn and Reposition every 2 hours and as needed for patient comfort.? Use pillows or wedges to support off loading positions. Use wedges for off loading - wedges in place at this time. 2. Off Load all bony prominences with use of pillows and heel boots if needed.? Apply Preventative foams where needed. ?Heel Protectors in use. 3. Monitor for incontinence and moisture control, use barrier creams when needed for prevention and treatment. Barrier cream in use. 4. Provide adequate and supplemental nutrition.? 5. Order low air loss mattress - May consider Specialty mattress from [employer] - Pulsate extra long - Not the [place]. 6. When applicable maintain blood glucose levels per Providers order. 7. Coccyx, Buttock, Thigh, scrotum and groin - Off Load Pressure - Cleanse with PH balance spray or wipes, pat dry. ?Apply thin layer of Triad to wound bed - only pat and dab no scrub and rub when soiling occurs. Reapply thin layer PRN after each episode of incontinence. 8. Right Heel - Heel elevation off of bed surface with heel protector boots. Assess heels Q shift. Apply skin prep to protect from friction. 9. Right Lateral Leg, Left cifuentes and Left Heel - Cleanse with NS moist gauze, apply Durafiber AG to wound bed cover with ABD pag and gauze wrap. Change every 3 days and PRN. Re-consult wound care Nurse for wound deterioration or wound changes.
[2024-04-29] MEDS: Levothyroxine Sodium 100 MCG/5 ML VIAL 75 MCG IVPUSH (16:12)
[2024-04-29 18:20] LABS: MANUAL DIFF FLAG NO
[2024-04-29 18:34] LABS: Basophils Percent Auto 0.4 % (0-2); Eosinophils Absolute Auto 0.2 X10*3/uL (0.0-0.4); Eosinophils Percent Auto 2.4 % (0-4); Hematocrit 36.2 % (42.0-52.0); Hemoglobin 11.5 g/dl (14.0-18.0); Imm Gran Abs Auto 0.06 X10*3/uL (0.00-0.03); Imm Gran Pct Auto 0.6 % (0.0-0.4); Lymphocytes Absolute Auto 2.1 X10*3/uL (1.2-4.9); Lymphocytes Percent Auto 22.5 % (20-40); Mean Corpuscular HGB Conc 31.8 g/dl (31.0-36.0); Mean Corpuscular Hemoglobin 28.5 pg (27.0-33.0); Mean Corpuscular Volume 89.8 fL (80.0-98.0); Mean Platelet Volume 9.2 fL (9.4-12.4); Monocytes Absolute Auto 0.7 X10*3/uL (0.1-1.2); Monocytes Percent Auto 7.7 % (2-11); Neutrophils Absolute Auto 6.3 x10*3/uL (2.0-8.3); Neutrophils Percent Auto 66.4 % (45-73); Platelet Count 244 X10*3/uL (160-400); Red Blood Count 4.03 X10*6/uL (4.60-5.80); Red Cell Distribution Width 16.4 % (11.0-16.0); White Blood Count 9.5 X10*3/uL (4.8-10.8)
[2024-04-29 18:35] LABS: Anion Gap 14 (12-20); Blood Urea Nitrogen 18 mg/dL (9-16); Calcium 8.9 mg/dL (8.4-10.2); Carbon Dioxide 30 mmol/L (22-29); Chloride 102 mmol/L (96-108); Creatinine Clr Calc Pharmacy 144.5; Estimated Glomerular Filt Rate > 60; Glucose Random 103 mg/dL (60-115); Lactic Acid 1.2 mmol/L (0.5-2.0); Magnesium 1.9 mg/dL (1.6-2.6); Phosphorus 3.9 mg/dL (2.7-4.5); Potassium 4.4 mmol/L (3.3-5.1); Sodium 142 mmol/L (135-145)
[2024-04-29] MEDS: Midodrine HCl 10 MG TABLET PO (20:00)
[2024-04-29] MEDS: Apixaban 5 MG TABLET PO (20:01)
[2024-04-29] MEDS: Baclofen 10 MG TABLET PO (20:01)
[2024-04-29] MEDS: Docusate Sodium 100 MG CAPSULE 200 MG PO (20:01)
[2024-04-29] MEDS: vancomycin HCL 1,000 MG in 0.9 % Sodium Chloride 250 ML 270 MG IV (20:05)
--- NOTE | 2024-04-29 22:19 | HE.PHANOTE ---
RE: naomy Patient's renal function improved, changed dose to 1500mg Q12H with predicted AUC of 549mg/L, trough of 17.9mg/L. Level still to be drawn 04/30 @1900
[2024-04-30] VITALS (22 sets, daily range): BP systolic 86–176; BP diastolic 46–80; PULSE 59–65; RESP 11–30; TEMP 36.4–38.1; O2SAT 90–97; BMI 34.8
[2024-04-30] MEDS: Meropenem 1 GM VIAL IVPUSH ×3 (04:02→22:00)
[2024-04-30 05:16] LABS: Basophils Percent Auto 0.4 % (0-2); Eosinophils Absolute Auto 0.3 X10*3/uL (0.0-0.4); Eosinophils Percent Auto 3.3 % (0-4); Hematocrit 37.2 % (42.0-52.0); Hemoglobin 11.7 g/dl (14.0-18.0); Imm Gran Abs Auto 0.05 X10*3/uL (0.00-0.03); Imm Gran Pct Auto 0.5 % (0.0-0.4); Lymphocytes Absolute Auto 1.9 X10*3/uL (1.2-4.9); Lymphocytes Percent Auto 20.5 % (20-40); MANUAL DIFF FLAG NO; Mean Corpuscular HGB Conc 31.5 g/dl (31.0-36.0); Mean Corpuscular Hemoglobin 28.3 pg (27.0-33.0); Mean Corpuscular Volume 89.9 fL (80.0-98.0); Mean Platelet Volume 9.3 fL (9.4-12.4); Monocytes Absolute Auto 0.6 X10*3/uL (0.1-1.2); Neutrophils Absolute Auto 6.2 x10*3/uL (2.0-8.3); Neutrophils Percent Auto 68.3 % (45-73); Platelet Count 238 X10*3/uL (160-400); Red Blood Count 4.14 X10*6/uL (4.60-5.80); Red Cell Distribution Width 16.5 % (11.0-16.0); White Blood Count 9.1 X10*3/uL (4.8-10.8)
[2024-04-30] MEDS: Levothyroxine Sodium 125 MCG TABLET PO (05:16)
[2024-04-30 05:30] LABS: Anion Gap 15 (12-20); Blood Urea Nitrogen 14 mg/dL (9-16); Calcium 9.1 mg/dL (8.4-10.2); Carbon Dioxide 28 mmol/L (22-29); Chloride 101 mmol/L (96-108); Creatinine Clr Calc Pharmacy 136.9; Estimated Glomerular Filt Rate > 60; Glucose Random 107 mg/dL (60-115); Magnesium 1.9 mg/dL (1.6-2.6); Phosphorus 2.8 mg/dL (2.7-4.5); Potassium 4.2 mmol/L (3.3-5.1); Sodium 140 mmol/L (135-145)
[2024-04-30] MEDS: 0.9 % Sodium Chloride Flush 3 ML SYRINGE IVFLUSH ×3 (07:39→22:04)
[2024-04-30] MEDS: Apixaban 5 MG TABLET PO ×2 (07:40→22:03)
[2024-04-30] MEDS: Midodrine HCl 10 MG TABLET PO ×3 (07:40→22:04)
[2024-04-30] MEDS: Baclofen 10 MG TABLET PO ×3 (07:40→22:03)
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
--- NOTE | 2024-04-30 09:30 | MHC.CLN ---
PT WITH INCREASED NUTRITION RISK R/T PRESSURE INJURIES REGULAR DIET RECOMMEND ADDING ENSURE MAX BID TO PROMOTE WOUND HEALING SUPP TO PROVIDE 300KCALS, 60G PROTEIN MONITOR PO INTAKE AND ENCOURAGE SUPPLEMENTS SEE ALSO FULL CLINICAL NUTRITION ASSESSMENT
--- NOTE | 2024-04-30 09:31 | P.CDIM_ITS ---
PROVIDER RESPONSE TEXT: To clarify, the appropriate diagnosis supported by the clinical indicators: Pressure (decubitus) ulcer, right buttock: stage 3 QUERY TEXT: PHYSICIAN'S DOCUMENTATION REQUEST Date of Query: 04/30/2024 07:53 AM EST Patient Name: SAQIB PEREZ Admit Date: 04/29/2024 Dear Soledad Elias MD, A review of the medical record indicates additional documentation may be needed. Please review below and update the documentation accordingly. Clinical Indicators: decubitus ulcer, skin breakdown sacral buttock area Based on the above, could you please provide further information regarding the stage of the ulcers/wo unds: Pressure (decubitus) ulcer, sacrum Please include the stage of the ulcer and specify the location and laterality of the ulcer/wound Pressure (decubitus) ulcer, left buttock Pressure (decubitus) ulcer, left buttock Pressure (decubitus) ulcer, right buttock Pressure (decubitus) ulcer, left buttock Other (explain) Clinically unable to determine (explain) Thank you, Mayi Casillas RN Use of terms such as suspected, likely, concern for, or probable (associated with a specific diagnosi s that is being evaluated, monitored, or treated as if it exists) are acceptable and can be coded in the inpatient se tting, when documented at the time of discharge. Please use your independent medical judgment in providing your response. THIS QUERY IS PART OF THE PERMANENT MEDICAL RECORD
[2024-04-30] MEDS: Furosemide 20 MG TABLET PO (09:51)
[2024-04-30] MEDS: vancomycin HCL 1,500 MG in 0.9 % Sodium Chloride 500 ML 333.33 MG IV (09:54)
--- NOTE | 2024-04-30 11:29 | PM.EVENT ---
Event Note Date of Service: 04/30/24 Event Note: 68M PMH tetraplegia due to lesion at C5-C7, complicated by neurogenic bladder status post suprapubic catheter, sacral decubitus ulcer, DVT with IVC filter, paroxysmal atrial fibrillation, hypothyroid presented malfunctioning catheter, AMS complicated by sepsis due to uti requiring iv pressors, icu admisison, now off pressors, downgraded to medical floor, urine culture grew mixed mateo, blood culture no growth to date has history of MDR organisms, will continue vancvictor manuel and request ID eval Time Spent With Patient Time: Total time managing care of this patient today ____ minutes.
--- NOTE | 2024-04-30 13:46 | MHC.CM.PN ---
Pt presents to ICU w/urosepsis. Pt making clinical gains and will be transferred to the medical floor today. Met with pt to discuss d/c planning needs. Pt resides at a [facility] in [place]. He is w/c bound d/t paraplegia. Active with [facility] for skilled RN visits/cath and wound care. Pt manages his own ostomy - supplier unknown. Pt is also active with [facility] wound clinic. S transport to all appointments. [facility] contact: Joanne at [phone]. She will fax the intermediate's med rec form to CM office for completion prior to d/c. Joanne will have intermediate staff bring pt's phone to [facility] - number of his sister Analia Estrada needed for new HCP completion. (HCP Ifeanyi listed has passed). Referred back to Patricio: BLS transport CM to follow for finalization of d/c plans.
[2024-04-30] MEDS: Docusate Sodium 100 MG CAPSULE 200 MG PO (22:04)
[2024-05-01 03:54] VITALS: BP 122/56; PULSE 60; RESP 18; TEMP 36.6; O2SAT 92
[2024-05-01] MEDS: Meropenem 1 GM VIAL IVPUSH ×3 (05:39→22:05)
[2024-05-01] MEDS: Levothyroxine Sodium 125 MCG TABLET PO (05:50)
[2024-05-01 06:51] LABS: MANUAL DIFF FLAG NO
[2024-05-01 06:59] LABS: Basophils Percent Auto 0.4 % (0-2); Eosinophils Absolute Auto 0.3 X10*3/uL (0.0-0.4); Hematocrit 35.4 % (42.0-52.0); Hemoglobin 11.7 g/dl (14.0-18.0); Imm Gran Abs Auto 0.04 X10*3/uL (0.00-0.03); Imm Gran Pct Auto 0.4 % (0.0-0.4); Lymphocytes Absolute Auto 2.8 X10*3/uL (1.2-4.9); Lymphocytes Percent Auto 30.1 % (20-40); Mean Corpuscular HGB Conc 33.1 g/dl (31.0-36.0); Mean Corpuscular Hemoglobin 28.8 pg (27.0-33.0); Mean Corpuscular Volume 87.2 fL (80.0-98.0); Mean Platelet Volume 9.5 fL (9.4-12.4); Monocytes Absolute Auto 0.6 X10*3/uL (0.1-1.2); Monocytes Percent Auto 6.1 % (2-11); Neutrophils Absolute Auto 5.6 x10*3/uL (2.0-8.3); Platelet Count 235 X10*3/uL (160-400); Red Blood Count 4.06 X10*6/uL (4.60-5.80); Red Cell Distribution Width 16.6 % (11.0-16.0); White Blood Count 9.3 X10*3/uL (4.8-10.8)
[2024-05-01 07:17] LABS: Anion Gap 17 (12-20); Blood Urea Nitrogen 16 mg/dL (9-16); Carbon Dioxide 24 mmol/L (22-29); Chloride 102 mmol/L (96-108); Creatinine Clr Calc Pharmacy 162.2; Estimated Glomerular Filt Rate > 60; Glucose Random 95 mg/dL (60-115); Phosphorus 2.7 mg/dL (2.7-4.5); Sodium 139 mmol/L (135-145)
[2024-05-01 07:46] VITALS: BP 164/91; PULSE 62; RESP 20; TEMP 36.6; O2SAT 94
[2024-05-01] MEDS: Furosemide 20 MG TABLET PO (08:30)
[2024-05-01] MEDS: Baclofen 10 MG TABLET PO ×3 (08:30→22:05)
[2024-05-01] MEDS: Apixaban 5 MG TABLET PO ×2 (08:30→22:05)
[2024-05-01] MEDS: 0.9 % Sodium Chloride Flush 3 ML SYRINGE IVFLUSH ×3 (08:31→23:50)
--- NOTE | 2024-05-01 10:25 | MHC.CLN ---
F/U PT WITH INCREASED NUTRITION RISK R/T PRESSURE INJURIES REGULAR DIET RECEIVING ENSURE MAX BID TO PROMOTE WOUND HEALING SUPP PROVIDES 300KCALS, 60G PROTEIN MONITOR PO INTAKE AND ENCOURAGE SUPPLEMENTS
[2024-05-01 12:00] VITALS: BP 140/88; PULSE 59; RESP 20; TEMP 37.2; O2SAT 93
--- NOTE | 2024-05-01 13:48 | P.PNIM_ITS ---
Subjective Subjective Date of Service: 05/01/24 Interval History: seen and evaluated this morning Feels better overall but reports feeling hot no fever or chills BP better controlled , no hypotension Review of Systems Review of Systems: Yes all other systems are reviewed and are negative Physical Exam 2 Vital Signs: Vital Signs: Last Vital Signs Temp 98.9 F 05/01/24 12:00 Pulse 59 05/01/24 12:00 Resp 20 05/01/24 12:00 BP 140/88 H 05/01/24 12:00 Pulse Ox 93 05/01/24 12:00 O2 Del Method Room Air 05/01/24 12:00 O2 Flow Rate 2 04/30/24 09:00 BMI result Body Mass Index 34.8 Const: Other: Constitutional : Alert, interactive Neck : Normal inspection, Supple Cardiovascular : regular heart rhythm, significant +2 lower extremity edema Respiratory : Good bilateral air entry, no crackles, wheezes or rhonchi Gastrointestinal: soft, lax, Normal bowel sounds, Non tender Skin : Warm/Dry, No rash, suprapubic cath in place Neurological : Alert & oriented x2, confusion improved, lower body paraplegia Objective Data Active Medications Acetaminophen (Acetaminophen 325 Mg Tablet) 975 mg PO Q6H PRN PRN Reason: Fever >100.4 Albuterol/Ipratropium (Albuterol/Iprat 2.5/0.5mg 3 Ml Ampul.Neb) 3 ml INHALE Q6H PRN PRN Reason: Wheezing Apixaban (Apixaban 5 Mg Tablet) 5 mg PO BID [facility] Last Admin: 05/01/24 08:30 Dose: 5 mg Documented By: MAUREEN Ascorbic Acid (Ascorbic Acid 500 Mg Tablet) 500 mg PO DAILY [facility] Baclofen (Baclofen 10 Mg Tablet) 10 mg PO TID [facility] Last Admin: 05/01/24 08:30 Dose: 10 mg Documented By: MAUREEN Calcitriol (Calcitriol 0.25 Mcg Capsule) 0.25 mcg PO DAILY [facility] Dicyclomine HCl (Dicyclomine Hcl 10 Mg Capsule) 10 mg PO QID [facility] Docusate Sodium (Docusate Sodium 100 Mg Capsule) 200 mg PO BEDTIME [facility] Last Admin: 04/30/24 22:04 Dose: 200 mg Documented By: CONNOR Ferrous Sulfate (Ferrous Sulfate 324 Mg Tablet.) 324 mg PO DAILY [facility] Furosemide (Furosemide 20 Mg Tablet) 20 mg PO DAILY [facility]ACH[facility]; Protocol Last Admin: 05/01/24 08:30 Dose: 20 mg Documented By: MAUREEN Furosemide (Furosemide 20 Mg/2 Ml Vial) 20 mg IVPUSH DAILY [facility]ACHIN; Protocol Gabapentin (Gabapentin 100 Mg Capsule) 100 mg PO BID@0800,1400 [facility] Levothyroxine Sodium (Levothyroxine Sodium 125 Mcg Tablet) 125 mcg PO DAILY@0600 [facility] Last Admin: 05/01/24 05:50 Dose: 125 mcg Documented By: CONNOR Melatonin (Melatonin 3 Mg Tablet) 9 mg PO BEDTIME [facility] Meropenem (Meropenem 1 Gm Vial) 1 gm IVPUSH Q8H [facility] Last Admin: 05/01/24 12:45 Dose: 1 gm Documented By: MAUREEN Methenamine Hippurate (Methenamine Hippurate 1 Gm Tablet) 1 gm PO BID [facility] Midodrine (Midodrine Hcl 10 Mg Tablet) 10 mg PO TID [facility] Last Admin: 05/01/24 08:36 Dose: Not Given Documented By: MAUREEN Non-Admin Reason: bp high Nystatin (Nystatin Powder 15 Gm Bottle) 1 appl TOPICAL BID [facility]ACHIN; Protocol Oxybutynin Chloride (Oxybutynin Chloride Er 5 Mg Tab.Er.24) 10 mg PO DAILY [facility] Senna (Sennosides 8.6 Mg Tablet) 8.6 mg PO DAILY PRN PRN Reason: Constipation Sodium Chloride (0.9 % Sodium Chloride Flush 3 Ml Syringe) 3 ml IVFLUSH QSHIFT [facility] Last Admin: 05/01/24 08:31 Dose: 3 ml Documented By: MAUREEN Tramadol HCl (Tramadol Hcl 50 Mg Tablet) 50 mg PO Q8H PRN PRN Reason: Pain, Moderate(Pain Scale 4-6) Trazodone HCl (Trazodone Hcl 25 Mg Halftab) 75 mg PO BEDTIME [facility] Labs 05/01/24 06:07 05/01/24 06:07 Labs: Laboratory Results - last 24 hr 05/01/24 06:07 MCV 87.2 MCH 28.8 MCHC 33.1 RDW 16.6 H Plt Count 235 MPV 9.5 Immature Gran % (Auto) 0.4 Neut % (Auto) 60.0 Lymph % (Auto) 30.1 [place] % (Auto) 6.1 Eos % (Auto) 3.0 Baso % (Auto) 0.4 Lymph # (Auto) 2.8 [place] # (Auto) 0.6 Eos # (Auto) 0.3 Baso # (Auto) 0.0 Abs Immat Gran (auto) 0.04 H Absolute Neuts (auto) 5.6 Absolute Nucleated RBC 0.000 Nucleated RBC % (auto) 0.0 Anion Gap 17 Estim Creat Clear Calc 162.2 Estimated GFR > 60 Random Glucose 95 Calcium 9.0 Phosphorus 2.7 Magnesium 2.0 Microbiology Microbiology Results: Microbiology 04/29/24 06:09 Blood Culture - Preliminary Blood - Venous No growth after 48 hours. 04/29/24 06:10 Blood Culture - Preliminary Blood - Venous No growth after 48 hours. Assessment and Plan (1) Encephalopathy: Status: Acute (2) Sepsis due to urinary tract infection: Status: Acute Plan 68M PMH tetraplegia due to lesion at C5-C7, complicated by neurogenic bladder status post suprapubic catheter, sacral decubitus ulcer, DVT with IVC filter, paroxysmal atrial fibrillation, hypothyroid presented malfunctioning catheter, AMS complicated by sepsis due to uti requiring iv pressors, icu admisison, now off pressors, downgraded to medical floor, urine culture grew mixed mateo, blood culture no growth. Acute encephalopathy, likely toxic-metabolic 2/2 sepsis resolved Toxic shock in setting of urosepsis, resolved s/p norepinephrine gtt patient on home midodrine at baseline, resumed blood Cx negative Urine Cx mixed yang ID input, 2 weeks of Ceftin on DC, now on Meropenem acute renal insufficiency resolved; monitor electrolytes atrial fibrillation on apixaban Stage 3 pressure decubitus injury wound care as needed hypothyroidism resume home levothyroxine DVT PPX Eliquis The patient will need overnight hosptial stay for treatment of infection pending final blood cultures on IV antibiotics Quality Stroke Does the patient have a stroke diagnosis?: No VTE Prior VTE?: No VTE Risk Level:: Medical - moderate - high VTE Device Contraindication: N/A - Device Ordered VTE Drug Contraindication: N/A - Med Ordered
--- NOTE | 2024-05-01 14:09 | MHC.CM.PN ---
Per rounds, and EMR review, pt is not yet ready for DC, he is being treated with IV ABX. DCP is home to a skilled nursing, with services from [facility].
[2024-05-01] MEDS: Gabapentin 100 MG CAPSULE PO (14:47)
[2024-05-01] MEDS: Midodrine HCl 10 MG TABLET PO ×2 (14:47→22:05)
[2024-05-01] MEDS: Dicyclomine HCl 10 MG CAPSULE PO ×3 (14:47→22:04)
[2024-05-01 16:00] VITALS: BP 146/78; PULSE 59; RESP 18; TEMP 36.7; O2SAT 97
[2024-05-01 19:38] VITALS: BP 113/70; PULSE 60; RESP 18; TEMP 36.6; O2SAT 92
[2024-05-01] MEDS: Furosemide 20 MG/2 ML VIAL IVPUSH (22:03)
[2024-05-01] MEDS: Melatonin 3 MG TABLET 9 MG PO (22:04)
[2024-05-01] MEDS: Docusate Sodium 100 MG CAPSULE 200 MG PO (22:04)
[2024-05-01] MEDS: traZODone HCL 25 MG HALFTAB 75 MG PO (22:04)
[2024-05-01] MEDS: Methenamine Hippurate 1 GM TABLET PO (22:05)
[2024-05-01 23:11] VITALS: BP 155/74; PULSE 58; RESP 18; TEMP 36.4; O2SAT 92
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
[2024-05-02] VITALS (7 sets, daily range): BP systolic 100–169; BP diastolic 52–85; PULSE 60–69; RESP 16–19; TEMP 36.1–37.6; O2SAT 92–99
[2024-05-02] MEDS: Meropenem 1 GM VIAL IVPUSH ×3 (04:46→21:07)
[2024-05-02] MEDS: Levothyroxine Sodium 125 MCG TABLET PO (05:53)
[2024-05-02 06:19] LABS: MANUAL DIFF FLAG NO
[2024-05-02 07:01] LABS: Anion Gap 17 (12-20); Blood Urea Nitrogen 17 mg/dL (9-16); Calcium 9.2 mg/dL (8.4-10.2); Carbon Dioxide 26 mmol/L (22-29); Chloride 98 mmol/L (96-108); Creatinine Clr Calc Pharmacy 144.4; Estimated Glomerular Filt Rate > 60; Glucose Random 103 mg/dL (60-115); Phosphorus 3.7 mg/dL (2.7-4.5); Potassium 3.6 mmol/L (3.3-5.1); Sodium 137 mmol/L (135-145)
[2024-05-02 08:17] LABS: Basophils Percent Auto 0.3 % (0-2); Eosinophils Absolute Auto 0.3 X10*3/uL (0.0-0.4); Eosinophils Percent Auto 3.7 % (0-4); Hematocrit 35.3 % (42.0-52.0); Hemoglobin 11.8 g/dl (14.0-18.0); Imm Gran Abs Auto 0.05 X10*3/uL (0.00-0.03); Imm Gran Pct Auto 0.6 % (0.0-0.4); Lymphocytes Absolute Auto 2.1 X10*3/uL (1.2-4.9); Lymphocytes Percent Auto 23.6 % (20-40); Mean Corpuscular HGB Conc 33.4 g/dl (31.0-36.0); Mean Corpuscular Hemoglobin 28.9 pg (27.0-33.0); Mean Corpuscular Volume 86.5 fL (80.0-98.0); Mean Platelet Volume 9.7 fL (9.4-12.4); Monocytes Absolute Auto 0.5 X10*3/uL (0.1-1.2); Monocytes Percent Auto 6.2 % (2-11); Neutrophils Absolute Auto 5.7 x10*3/uL (2.0-8.3); Neutrophils Percent Auto 65.6 % (45-73); Platelet Count 227 X10*3/uL (160-400); Red Blood Count 4.08 X10*6/uL (4.60-5.80); Red Cell Distribution Width 16.4 % (11.0-16.0); White Blood Count 8.7 X10*3/uL (4.8-10.8)
[2024-05-02] MEDS: Baclofen 10 MG TABLET PO ×3 (08:42→21:01)
[2024-05-02] MEDS: Midodrine HCl 10 MG TABLET PO ×3 (08:42→21:01)
[2024-05-02] MEDS: Apixaban 5 MG TABLET PO ×2 (08:42→21:03)
[2024-05-02] MEDS: Gabapentin 100 MG CAPSULE PO ×2 (08:42→15:29)
[2024-05-02] MEDS: Methenamine Hippurate 1 GM TABLET PO ×2 (08:42→21:01)
[2024-05-02] MEDS: Ascorbic Acid 500 MG TABLET PO (08:42)
[2024-05-02] MEDS: calcitrioL 0.25 MCG CAPSULE PO (08:42)
[2024-05-02] MEDS: Dicyclomine HCl 10 MG CAPSULE PO ×4 (08:42→21:02)
[2024-05-02] MEDS: oxyBUTYnin chloride ER 5 MG TAB.ER.24 10 MG PO (08:43)
[2024-05-02] MEDS: Furosemide 20 MG/2 ML VIAL IVPUSH ×2 (08:43→17:05)
[2024-05-02] MEDS: 0.9 % Sodium Chloride Flush 3 ML SYRINGE IVFLUSH ×3 (08:44→21:07)
[2024-05-02] MEDS: Nystatin Powder 15 GM BOTTLE 1 APPL TOPICAL (08:44)
--- NOTE | 2024-05-02 09:34 | MHC.CM.PN ---
CM spoke with [facility] RN/Joanne @ [phone]; goal will be for Patient to return to the [facility] and resume [facility] tomorrow. is aware and [facility] will continue to follow.
[2024-05-02] MEDS: Ferrous Sulfate 324 MG TABLET.DR PO (12:35)
--- NOTE | 2024-05-02 15:07 | HO.PM.IMPN ---
Subjective Subjective Date of Service: 05/02/24 Interval History: seen and evaluated this morning Feels better overall but reports feeling hot no fever or chills BP better controlled , no hypotension Physical Exam Vital Signs: Vital Signs: Last Vital Signs Temp 99.2 F 05/02/24 12:00 Pulse 69 05/02/24 12:00 Resp 18 05/02/24 12:00 BP 169/85 H 05/02/24 12:00 Pulse Ox 92 05/02/24 12:00 O2 Del Method Room Air 05/02/24 07:43 O2 Flow Rate 2 04/30/24 09:00 BMI result Body Mass Index 34.8 Const: Other: Constitutional : Alert, interactive Neck : Normal inspection, Supple Cardiovascular : regular heart rhythm, significant +2 lower extremity edema Respiratory : Good bilateral air entry, no crackles, wheezes or rhonchi Gastrointestinal: soft, lax, Normal bowel sounds, Non tender Skin : Warm/Dry, No rash, suprapubic cath in place Neurological : Alert & oriented x2, confusion improved, lower body paraplegia Objective Data Active Medications Acetaminophen (Acetaminophen 325 Mg Tablet) 975 mg PO Q6H PRN PRN Reason: Fever >100.4 Albuterol/Ipratropium (Albuterol/Iprat 2.5/0.5mg 3 Ml Ampul.Neb) 3 ml INHALE Q6H PRN PRN Reason: Wheezing Apixaban (Apixaban 5 Mg Tablet) 5 mg PO BID [facility] Last Admin: 05/02/24 08:42 Dose: 5 mg Documented By: BEENA Ascorbic Acid (Ascorbic Acid 500 Mg Tablet) 500 mg PO DAILY [facility] Last Admin: 05/02/24 08:42 Dose: 500 mg Documented By: BEENA Baclofen (Baclofen 10 Mg Tablet) 10 mg PO TID [facility] Last Admin: 05/02/24 08:42 Dose: 10 mg Documented By: BEENA Calcitriol (Calcitriol 0.25 Mcg Capsule) 0.25 mcg PO DAILY [facility] Last Admin: 05/02/24 08:42 Dose: 0.25 mcg Documented By: BEENA Dicyclomine HCl (Dicyclomine Hcl 10 Mg Capsule) 10 mg PO QID [facility] Last Admin: 05/02/24 12:35 Dose: 10 mg Documented By: SHEREE Docusate Sodium (Docusate Sodium 100 Mg Capsule) 200 mg PO BEDTIME [facility] Last Admin: 05/01/24 22:04 Dose: 200 mg Documented By: JACEK Ferrous Sulfate (Ferrous Sulfate 324 Mg Tablet.) 324 mg PO DAILY [facility] Last Admin: 05/02/24 12:35 Dose: 324 mg Documented By: SHEREE Furosemide (Furosemide 20 Mg/2 Ml Vial) 20 mg IVPUSH BID@0900,1800 [facility]; Protocol Last Admin: 05/02/24 08:43 Dose: 20 mg Documented By: BEENA Gabapentin (Gabapentin 100 Mg Capsule) 100 mg PO BID@0800,1400 [facility] Last Admin: 05/02/24 08:42 Dose: 100 mg Documented By: BEENA Levothyroxine Sodium (Levothyroxine Sodium 125 Mcg Tablet) 125 mcg PO DAILY@0600 [facility] Last Admin: 05/02/24 05:53 Dose: 125 mcg Documented By: JACEK Melatonin (Melatonin 3 Mg Tablet) 9 mg PO BEDTIME [facility] Last Admin: 05/01/24 22:04 Dose: 9 mg Documented By: JACEK Meropenem (Meropenem 1 Gm Vial) 1 gm IVPUSH Q8H [facility] Last Admin: 05/02/24 12:35 Dose: 1 gm Documented By: SHEREE Methenamine Hippurate (Methenamine Hippurate 1 Gm Tablet) 1 gm PO BID [facility] Last Admin: 05/02/24 08:42 Dose: 1 gm Documented By: BEENA Midodrine (Midodrine Hcl 10 Mg Tablet) 10 mg PO TID [facility] Last Admin: 05/02/24 08:42 Dose: 10 mg Documented By: BEEAN Nystatin (Nystatin Powder 15 Gm Bottle) 1 appl TOPICAL BID [facility]; Protocol Last Admin: 05/02/24 08:44 Dose: 1 appl Documented By: BEENA Oxybutynin Chloride (Oxybutynin Chloride Er 5 Mg Tab.Er.24) 10 mg PO DAILY [facility] Last Admin: 05/02/24 08:43 Dose: 10 mg Documented By: BEENA Senna (Sennosides 8.6 Mg Tablet) 8.6 mg PO DAILY PRN PRN Reason: Constipation Sodium Chloride (0.9 % Sodium Chloride Flush 3 Ml Syringe) 3 ml IVFLUSH QSHIFT [facility] Last Admin: 05/02/24 08:44 Dose: 3 ml Documented By: BEENA Tramadol HCl (Tramadol Hcl 50 Mg Tablet) 50 mg PO Q8H PRN PRN Reason: Pain, Moderate(Pain Scale 4-6) Trazodone HCl (Trazodone Hcl 25 Mg Halftab) 75 mg PO BEDTIME [facility] Last Admin: 05/01/24 22:04 Dose: 75 mg Documented By: JACEK Labs 05/02/24 06:05 05/02/24 06:05 Labs: Laboratory Results - last 24 hr 05/02/24 06:05 MCV 86.5 MCH 28.9 MCHC 33.4 RDW 16.4 H Plt Count 227 MPV 9.7 Immature Gran % (Auto) 0.6 H Neut % (Auto) 65.6 Lymph % (Auto) 23.6 [place] % (Auto) 6.2 Eos % (Auto) 3.7 Baso % (Auto) 0.3 Lymph # (Auto) 2.1 [place] # (Auto) 0.5 Eos # (Auto) 0.3 Baso # (Auto) 0.0 Abs Immat Gran (auto) 0.05 H Absolute Neuts (auto) 5.7 Absolute Nucleated RBC 0.000 Nucleated RBC % (auto) 0.0 Anion Gap 17 Estim Creat Clear Calc 144.4 Estimated GFR > 60 Random Glucose 103 Calcium 9.2 Phosphorus 3.7 Magnesium 2.0 Assessment and Plan (1) Encephalopathy: Status: Acute (2) Sepsis due to urinary tract infection: Status: Acute Plan 68M PMH tetraplegia due to lesion at C5-C7, complicated by neurogenic bladder status post suprapubic catheter, sacral decubitus ulcer, DVT with IVC filter, paroxysmal atrial fibrillation, hypothyroid presented malfunctioning catheter, AMS complicated by sepsis due to uti requiring iv pressors, icu admisison, now off pressors, downgraded to medical floor, urine culture grew mixed mateo, blood culture no growth. Acute encephalopathy, likely toxic-metabolic 2/2 sepsis resolved Toxic shock in setting of urosepsis, resolved s/p norepinephrine gtt patient on home midodrine at baseline, resumed blood Cx negative Urine Cx mixed yang ID input, 2 weeks of po fosfomycin on discharge 3 g, now on Meropenem acute renal insufficiency resolved; monitor electrolytes atrial fibrillation on apixaban Stage 3 pressure decubitus injury wound care as needed hypothyroidism resume home levothyroxine DVT PPX Eliquis The patient will need overnight hosptial stay for treatment of infection pending final blood cultures on IV antibiotics Quality Stroke Does the patient have a stroke diagnosis?: No VTE Prior VTE?: No VTE Risk Level:: Medical - moderate - high VTE Device Contraindication: N/A - Device Ordered VTE Drug Contraindication: N/A - Med Ordered
[2024-05-02] MEDS: traZODone HCL 25 MG HALFTAB 75 MG PO (21:01)
[2024-05-02] MEDS: Melatonin 3 MG TABLET 9 MG PO (21:02)
[2024-05-02] MEDS: Docusate Sodium 100 MG CAPSULE 200 MG PO (21:03)
[2024-05-02] MEDS: diphenhydrAMINE HCL 25 MG CAPSULE PO (21:03)
[2024-05-03] MEDS: traMADoL HCL 50 MG TABLET PO (00:18)
[2024-05-03 03:52] VITALS: BP 108/57; PULSE 60; RESP 16; TEMP 36.7; O2SAT 96
[2024-05-03] MEDS: Meropenem 1 GM VIAL IVPUSH ×2 (05:18→11:37)
[2024-05-03] MEDS: Levothyroxine Sodium 125 MCG TABLET PO (05:18)
[2024-05-03 06:38] LABS: MANUAL DIFF FLAG NO
[2024-05-03 06:39] LABS: Basophils Absolute Auto 0.1 X10*3/uL (0.0-0.2); Basophils Percent Auto 0.5 % (0-2); Eosinophils Absolute Auto 0.3 X10*3/uL (0.0-0.4); Eosinophils Percent Auto 2.9 % (0-4); Hematocrit 38.2 % (42.0-52.0); Hemoglobin 12.5 g/dl (14.0-18.0); Imm Gran Abs Auto 0.05 X10*3/uL (0.00-0.03); Imm Gran Pct Auto 0.5 % (0.0-0.4); Lymphocytes Absolute Auto 4.4 X10*3/uL (1.2-4.9); Lymphocytes Percent Auto 40.1 % (20-40); Mean Corpuscular HGB Conc 32.7 g/dl (31.0-36.0); Mean Corpuscular Hemoglobin 28.7 pg (27.0-33.0); Mean Corpuscular Volume 87.6 fL (80.0-98.0); Mean Platelet Volume 9.4 fL (9.4-12.4); Monocytes Absolute Auto 0.8 X10*3/uL (0.1-1.2); Monocytes Percent Auto 6.8 % (2-11); Neutrophils Absolute Auto 5.5 x10*3/uL (2.0-8.3); Neutrophils Percent Auto 49.2 % (45-73); Platelet Count 227 X10*3/uL (160-400); Red Blood Count 4.36 X10*6/uL (4.60-5.80); Red Cell Distribution Width 16.6 % (11.0-16.0); White Blood Count 11.1 X10*3/uL (4.8-10.8)
[2024-05-03 07:03] LABS: Anion Gap 20 (12-20); Blood Urea Nitrogen 24 mg/dL (9-16); Calcium 9.3 mg/dL (8.4-10.2); Carbon Dioxide 27 mmol/L (22-29); Chloride 94 mmol/L (96-108); Creatinine Clr Calc Pharmacy 113.3; Estimated Glomerular Filt Rate > 60; Glucose Random 97 mg/dL (60-115); Phosphorus 4.1 mg/dL (2.7-4.5); Potassium 3.9 mmol/L (3.3-5.1); Sodium 137 mmol/L (135-145)
[2024-05-03 08:00] VITALS: BP 91/58; PULSE 59; RESP 20; TEMP 36.5; O2SAT 92
[2024-05-03] MEDS: Baclofen 10 MG TABLET PO (09:29)
[2024-05-03] MEDS: Ferrous Sulfate 324 MG TABLET.DR PO (09:29)
[2024-05-03] MEDS: Midodrine HCl 10 MG TABLET PO (09:29)
[2024-05-03] MEDS: calcitrioL 0.25 MCG CAPSULE PO (09:29)
[2024-05-03] MEDS: Apixaban 5 MG TABLET PO (09:29)
[2024-05-03] MEDS: Furosemide 20 MG/2 ML VIAL IVPUSH (09:29)
[2024-05-03] MEDS: Ascorbic Acid 500 MG TABLET PO (09:30)
[2024-05-03] MEDS: Gabapentin 100 MG CAPSULE PO (09:30)
[2024-05-03] MEDS: Methenamine Hippurate 1 GM TABLET PO (09:30)
[2024-05-03] MEDS: oxyBUTYnin chloride ER 5 MG TAB.ER.24 10 MG PO (09:30)
[2024-05-03] MEDS: Dicyclomine HCl 10 MG CAPSULE PO (09:31)
[2024-05-03] MEDS: 0.9 % Sodium Chloride Flush 3 ML SYRINGE IVFLUSH (09:31)
[2024-05-03 11:35] VITALS: BP 165/87; PULSE 66; RESP 20; TEMP 37.7; O2SAT 92
--- NOTE | 2024-05-03 11:43 | PM.DS ---
DS: Providers Provider Date of Service: 05/03/24 Date of admission: 04/29/24 09:17 Date of discharge: 05/03/24 Primary care physician: Yulia Mckeon MD Consults: 04/29/24 14:53 Consult to Wound Care Routine Reason for consultation: new admission, multiple skin integrity concerns 04/30/24 11:31 Consult to Infectious Diseases Routine Consulting Provider: [facility] Reason for consultation: sepsis, ?uti chronic rojo, history of MDR organisms DS: Diagnosis Discharge Diagnosis (1) Encephalopathy: Status: Acute (2) Sepsis due to urinary tract infection: Status: Acute (3) Suprapubic catheter dysfunction: Status: Acute (4) Shock, septic: Status: Acute (5) Acute kidney injury: Status: Acute DS: Summary Hospital Course Hospital Course: Admission note HPI to ICU Patient is a 68 Y M with prior spinal cord injury c/b paraplegia, neurogenic bladder w/ chronic suprapubic catheter c/b recurrent urinary tract infections, colostomy, and sacral decubitus ulcer, paroxysmal atrial fibrillation on apixaban, and hypothyeroidism, presenting to the emergency department from [facility] on 04/29 w/ c/f suprapubic catheter malfunction, for which catheter exchanged in emergency department, though found to be hypotensive, c/f sepsis. Hospital course The patient was admitted to ICU for Toxic shock in setting of urosepsis requiring placement on IV fluids boluses and norepinephrine gtt with improvement in his blood pressure and resolution of sepsis. Treated with IV Meropenem. transferred to medical floor and started on home midodrine as blood Cx negative, Urine Cx mixed mateo. Evaluated by ID ID who recommended po fosfomycin on discharge 3 g For Acute encephalopathy, likely toxic-metabolic 2/2 sepsis that resolved as his infection and blood pressure improved back to baseline. Had acute renal insufficiency that also resolved as sepsis treated. For atrial fibrillation . rate controlled and he was kept on apixaban For Stage 3 pressure decubitus injury along with right heel pressure wound. he was seen by wound team for wound care as needed Discharge plan Continue Fosfomycin as prescribed Urine catheter care report any fever or chills Wound care of pressure ulcers Time Attestation Discharge Coordination Time (in mins): 47 Quality: Safe Use of Opioids Does Pt have an Active Cancer Diagnosis on the Problem List?: No Quality: Stroke Does the patient have a stroke diagnosis?: No Physical Exam Vital Signs: Vital Signs: Last Vital Signs Temp 99.8 F 05/03/24 11:35 Pulse 66 05/03/24 11:35 Resp 20 05/03/24 11:35 BP 165/87 H 05/03/24 11:35 Pulse Ox 92 05/03/24 11:35 O2 Del Method Room Air 05/03/24 11:35 O2 Flow Rate 2 04/30/24 09:00 BMI result Body Mass Index 34.8 Const: Other: Constitutional : Alert, interactive Neck : Normal inspection, Supple Cardiovascular : regular heart rhythm, significant +2 lower extremity edema Respiratory : Good bilateral air entry, no crackles, wheezes or rhonchi Gastrointestinal: soft, lax, Normal bowel sounds, Non tender Skin : Warm/Dry, No rash, suprapubic cath in place, has stage 3 coccyx pressure injury and right buttock stage 3 injury as well Neurological : Alert & oriented x2, confusion improved, lower body paraplegia DS: Data Data Completed and Pending Completed studies during hospitalization [Text1]: Procedures Change Drainage Device in Bladder, External Approach (12/04/23) Introduction of Vasopressor into Peripheral Vein, Percutaneous Approach (02/12/24) Labs on day of discharge: Laboratory Results - last 24 hr 05/03/24 05:44 WBC 11.1 H RBC 4.36 L Hgb 12.5 L Hct 38.2 L MCV 87.6 MCH 28.7 MCHC 32.7 RDW 16.6 H Plt Count 227 MPV 9.4 Immature Gran % (Auto) 0.5 H Neut % (Auto) 49.2 Lymph % (Auto) 40.1 H [place] % (Auto) 6.8 Eos % (Auto) 2.9 Baso % (Auto) 0.5 Lymph # (Auto) 4.4 [place] # (Auto) 0.8 Eos # (Auto) 0.3 Baso # (Auto) 0.1 Abs Immat Gran (auto) 0.05 H Absolute Neuts (auto) 5.5 Absolute Nucleated RBC 0.000 Nucleated RBC % (auto) 0.0 Sodium 137 Potassium 3.9 Chloride 94 L Carbon Dioxide 27 Anion Gap 20 BUN 24 H Creatinine 0.93 Estim Creat Clear Calc 113.3 Estimated GFR > 60 Random Glucose 97 Calcium 9.3 Phosphorus 4.1 Magnesium 2.0 Preliminary micro results at discharge 04/29/24 06:09 Blood Culture - Preliminary Blood - Venous No growth after 48 hours. 04/29/24 06:10 Blood Culture - Preliminary Blood - Venous No growth after 48 hours. Imaging Chest x-ray: Radiologist's impression: ITS Impressions Chest X-Ray 04/29/24 07:55 IMPRESSION: Cardiomegaly with probable small pleural effusions and bibasilar atelectasis. Electronically signed by: Frank Bertrand MD 04/29/2024 08:32 AM EST RP Abdomen/Pelvis CT 04/29/24 09:16 IMPRESSION: 1. No acute abnormality within the abdomen or pelvis. 2. Dependent punctate calculi in the right ureteropelvic junction, as before. No hydronephrosis. 3. Status post left herniorrhaphy with moderate sized residual fluid-containing left inguinal hernia. 4. Cardiomegaly with small to moderate pericardial effusion, as before. Fleischner guidelines were followed. Electronically signed by: Jessica Foster DO 04/29/2024 01:45 PM EST RP Discharge Plan Discharge Anticipated Discharge Date/Time: 05/03/24 11:30 Patient Disposition: Xfer Other Discharge Diagnosis: Sepsis, urine infection Referrals: Yulia Mckeon MD [Primary Care Provider] - 1 Week Discharge Medications: New fosfomycin tromethamine 3 gram packet 1 packet PO Q OTHER DAY Qty: 3 0RF Continued ascorbic acid (vitamin C) 500 mg Tablet 500 mg PO DAILY baclofen 10 mg tablet 20 mg PO TID@0900,1300,1700 baclofen 10 mg tablet 40 mg PO BEDTIME docusate sodium [Colace] 100 mg Capsule 200 mg PO BEDTIME calcitriol 0.25 mcg capsule 0.25 mcg PO DAILY gabapentin 600 mg tablet 600 mg PO BEDTIME furosemide 20 mg tablet 20 mg PO DAILY gabapentin 100 mg capsule 100 mg PO BID@0800,1400 dicyclomine 10 mg capsule 10 mg PO QID Rx Instructions: with meals midodrine 10 mg Tablet 10 mg PO TIDAC melatonin 10 mg Tablet 10 mg PO BEDTIME cholecalciferol (vitamin D3) 1,250 mcg (50,000 unit) Tablet 1,250 mcg PO QMONTH Rx Instructions: every month on the 20th tramadol 50 mg Tablet 50 mg PO Q8H PRN (Reason: Pain, Moderate(Pain Scale 4-6)) Qty: 14 0RF trazodone 150 mg tablet 75 mg PO BEDTIME levothyroxine 125 mcg tablet 125 mcg PO DAILY@0630 nystatin [Nyamyc] 100,000 unit/gram powder 1 appl topical BID Rx Instructions: use with cream, apply to buttocks acetaminophen 325 mg tablet 650 mg PO Q6H PRN (Reason: headache/fever/bodyaches) Rx Instructions: For 10 days then as needed ferrous sulfate [FeroSul] 325 mg (65 mg iron) tablet 325 mg PO DAILY sennosides [senna] 8.6 mg Tablet 8.6 mg PO DAILY PRN (Reason: Constipation) miconazole nitrate 2 % Cream 1 appl TOPICAL BID PRN (Reason: fungal rash) methenamine hippurate 1 gram Tablet 1 g PO BID Qty: 180 0RF oxybutynin chloride 10 mg tablet extended release 24hr 10 mg PO DAILY Qty: 90 0RF Eliquis 5 mg tablet 5 mg PO BID Discharge Orders: Discharge Order (Routine); Ordered 05/03/24 Ordered By: Azeem Newton Diet: Advance to usual diet Activity on Discharge: As tolerated Stand Alone Forms: Patient Portal Discharge page Print Language: Kazakh Activity Restrictions/Additional Instructions: Wounds care Recommendations: 1. Turn and Reposition every 2 hours and as needed for patient comfort.? Use pillows or wedges to support off loading positions. Use wedges for off loading - wedges in place at this time. 2. Off Load all bony prominences with use of pillows and heel boots if needed.? Apply Preventative foams where needed. ?Heel Protectors in use. 3. Monitor for incontinence and moisture control, use barrier creams when needed for prevention and treatment. Barrier cream in use. 4. Provide adequate and supplemental nutrition.? 5. Order low air loss mattress - May consider Specialty mattress from [employer] - Pulsate extra long - Not the [place]. 6. When applicable maintain blood glucose levels per Providers order. 7. Coccyx, Buttock, Thigh, scrotum and groin - Off Load Pressure - Cleanse with PH balance spray or wipes, pat dry. ?Apply thin layer of Triad to wound bed - only pat and dab no scrub and rub when soiling occurs. Reapply thin layer PRN after each episode of incontinence. 8. Right Heel - Heel elevation off of bed surface with heel protector boots. Assess heels Q shift. Apply skin prep to protect from friction. 9. Right Lateral Leg, Left cifuentes and Left Heel - Cleanse with NS moist gauze, apply Durafiber AG to wound bed cover with ABD pag and gauze wrap. Change every 3 days and PRN. Care Plan Goals: Urine infection treated with IV antibiotics Continue Fosfomycin as prescribed Urine catheter care report any fever or chills Wound care of pressure ulcer Health Concerns: Urine infection Pressure ulcer Plan of Treatment: Antibiotics wound care Assessment: as above
--- NOTE | 2024-05-03 14:20 | MHC.CM.PN ---
Second IMM given 05/03. Pt is medically cleared for discharge back to his correction, pt will transport home via BLS. skilled nursing orders/pt medication list signed by and emailed to the correction nurse Joanne.
== END 2024-05-03 12:53 | disposition other institution (70) | DRG 698 ==
LOC: HO.ED 09:25 → HO.EDOVER 09:40 → HO.ICU 10:21 → HO.IMC 04-30 12:53
PROVIDERS: Admitting Provider Internal Medicine Critical Care Medicine; Emergency Provider Emergency Medicine; PCP Family Medicine; Visit Provider Student in an Organized Health Care Education/Training Program
DX: T83.098A Other mechanical complication of other urinary catheter, initial encounter (principal); A41.9 Sepsis, unspecified organism; L89.153 Pressure ulcer of sacral region, stage 3; L89.313 Pressure ulcer of right buttock, stage 3; G82.54 Quadriplegia, C5-C7 incomplete; G92.8 Other toxic encephalopathy; R57.8 Other shock; R65.21 Severe sepsis with septic shock; E03.9 Hypothyroidism, unspecified; I48.0 Paroxysmal atrial fibrillation; N31.9 Neuromuscular dysfunction of bladder, unspecified; V89.2XXS Person injured in unspecified motor-vehicle accident, traffic, sequela; S14.155S Other incomplete lesion at C5 level of cervical spinal cord, sequela; Z87.440 Personal history of urinary (tract) infections; Z79.01 Long term (current) use of anticoagulants; Z79.890 Hormone replacement therapy; Z79.899 Other long term (current) drug therapy
CPT/HCPCS: 36415; 71045; 74177; 80048; 80053; 81001; 82803; 83605; 83735; 84100; 84145; 84439; 84443; 85025; 86140; 87040; 87086; 93005; 99285; J0651; J0696; J1940; J2185; J3370; J3371; J7120; Q9967

== ENCOUNTER 2024-04-29 09:17 | Outpatient (BNV) | payer MEDICARE, MEDICAID, SELFPAY | END 2024-04-29 09:34 | PROVIDERS: Admitting Provider Internal Medicine Critical Care Medicine; Emergency Provider Emergency Medicine; PCP Family Medicine; Visit Provider Internal Medicine | DX: A41.9 Sepsis, unspecified organism (principal) | CPT/HCPCS: 93010 ==

== ENCOUNTER → 2024-04-29 09:17 | Outpatient (BNV) | payer MEDICARE, MEDICAID, SELFPAY | PROVIDERS: Admitting Provider Internal Medicine Critical Care Medicine; Emergency Provider Emergency Medicine; PCP Family Medicine; Visit Provider Internal Medicine | DX: G92.8 Other toxic encephalopathy (principal) | CPT/HCPCS: 99222 ==

== ENCOUNTER → 2024-04-29 09:17 | Outpatient (BNV) | payer MEDICARE, MEDICAID, SELFPAY | PROVIDERS: Admitting Provider Internal Medicine Critical Care Medicine; Emergency Provider Emergency Medicine; PCP Family Medicine; Visit Provider Internal Medicine Critical Care Medicine | DX: T83.010A Breakdown (mechanical) of cystostomy catheter, initial encounter (principal); A41.9 Sepsis, unspecified organism; N39.0 Urinary tract infection, site not specified; G92.8 Other toxic encephalopathy | CPT/HCPCS: 99223; 99233 ==

== ENCOUNTER → 2024-04-29 09:17 | Outpatient (BNV) | payer MEDICARE, MEDICAID, SELFPAY | PROVIDERS: Admitting Provider Internal Medicine Critical Care Medicine; Emergency Provider Emergency Medicine; PCP Family Medicine; Visit Provider Internal Medicine | DX: G92.8 Other toxic encephalopathy (principal); A41.9 Sepsis, unspecified organism; N39.0 Urinary tract infection, site not specified; T83.010A Breakdown (mechanical) of cystostomy catheter, initial encounter; R65.21 Severe sepsis with septic shock; N17.9 Acute kidney failure, unspecified | CPT/HCPCS: 99232; 99239; 99499 ==

== ENCOUNTER 2024-05-07 06:17 | Outpatient (REF) | payer MEDICARE, MEDICAID, SELFPAY | END 2024-05-07 06:18 | disposition home or self-care (01) | LOC: CF 06:17 | PROVIDERS: Visit Provider Anesthesiology | DX: Z13.89 Encounter for screening for other disorder (principal) ==

== ENCOUNTER 2024-05-22 09:45 | Outpatient (RCR) | payer MEDICARE, MEDICAID, OTHER, SELFPAY ==
[2023-02-15 16:46] LABS: MANUAL DIFF FLAG NO
[2023-02-15 17:29] LABS: Basophils Percent Auto 0.5 % (0-2); Eosinophils Absolute Auto 0.3 X10*3/uL (0.0-0.4); Eosinophils Percent Auto 3.4 % (0-4); Hematocrit 37.5 % (42.0-52.0); Imm Gran Abs Auto 0.04 X10*3/uL (0.00-0.03); Imm Gran Pct Auto 0.5 % (0.0-0.4); Lymphocytes Absolute Auto 1.6 X10*3/uL (1.2-4.9); Lymphocytes Percent Auto 22.3 % (20-40); Mean Corpuscular Hemoglobin 27.5 pg (27.0-33.0); Mean Platelet Volume 9.5 fL (9.4-12.4); Monocytes Absolute Auto 0.6 X10*3/uL (0.1-1.2); Monocytes Percent Auto 7.8 % (2-11); Neutrophils Absolute Auto 4.8 x10*3/uL (2.0-8.3); Neutrophils Percent Auto 65.5 % (45-73); Platelet Count 294 X10*3/uL (160-400); Red Blood Count 4.36 X10*6/uL (4.60-5.80); Red Cell Distribution Width 16.4 % (11.0-16.0); White Blood Count 7.3 X10*3/uL (4.8-10.8)
[2023-02-15 18:03] LABS: Alanine Aminotransferase 12 U/L (0-40); Alkaline Phosphatase 75 U/L (39-117); Anion Gap 13 (12-20); Aspartate Amino Transferase 16 U/L (5-37); Bilirubin Total 0.3 mg/dL (0.0-1.0); Blood Urea Nitrogen 19 mg/dL (9-16); C Reactive Protein 1.51 mg/dL (< or = 0.50); Calcium 9.2 mg/dL (8.4-10.2); Carbon Dioxide 30 mmol/L (22-29); Chloride 100 mmol/L (96-108); Estimated Glomerular Filt Rate > 60; Glucose Random 82 mg/dL (60-115); Potassium 4.2 mmol/L (3.3-5.1); Sodium 139 mmol/L (135-145); Total Protein 7.1 g/dL (6.5-8.0)
[2023-02-15 20:06] LABS: Erythrocyte Sedimentation Rate 39 MM/HR (0-15)
--- NOTE | ~2024-05-22 | XR_ITS ---
EXAMINATION: XR FOOT, RIGHT CLINICAL INFORMATION: Nonhealing wound COMPARISON: None available. TECHNIQUE: AP, lateral, and oblique views of the right foot. FINDINGS: The bones are osteopenic. No fracture or dislocation. Degenerative changes of the first MTP and MTT joints with joint space narrowing and osteophyte formation. There may be soft tissue calcifications adjacent to the fifth metatarsal head. No x-ray evidence of osteomyelitis. There is soft tissue arterial calcification. XR/XR foot RT min 3V IMPRESSION: Severe osteopenia. Mild degenerative changes of the great toe. No fracture or x-ray evidence of osteomyelitis.
--- NOTE | ~2024-05-22 | XR_ITS ---
EXAMINATION: XR FOOT, LEFT CLINICAL INFORMATION: Nonhealing wounds COMPARISON: None available. TECHNIQUE: AP, lateral, and oblique views of the left foot. FINDINGS: Decreased bone density which decreases sensitivity for fracture evaluation. No acute visible fracture or dislocation. Pes planus. Possible chronic fracture deformity of the distal fibula though this may be accentuated secondary to image acquisition technique/angulation. Multi joint arthritic changes. Joint spaces and alignment are otherwise maintained. Atherosclerotic calcifications are noted. Possible soft tissue defect along the posterior margin of the calcaneal soft tissue, correlation with physical exam. No soft tissue gas or cortical erosions to suggest osteomyelitis at this time though evaluation is limited secondary to osteopenia. XR/XR foot LT min 3V IMPRESSION: 1. Decreased bone density which decreases sensitivity for fracture evaluation. 2. No acute visible fracture or dislocation. 3. Pes planus. 4. Possible soft tissue defect along the posterior margin of the calcaneal soft tissue, correlation with physical exam. No soft tissue gas or cortical erosions to suggest osteomyelitis at this time though evaluation is limited secondary to osteopenia. If high clinical suspicion for osteomyelitis consider further evaluation with MRI. 5. Possible chronic fracture deformity of the distal fibula though this may be accentuated secondary to image acquisition technique/angulation.
== END 2024-05-29 09:00 | disposition short-term general hospital (02) ==
LOC: HO.WCC 09:45
PROVIDERS: Physician Assistant; PCP Family Medicine; Visit Provider Surgery
DX: I87.312 Chronic venous hypertension (idiopathic) with ulcer of left lower extremity (principal); L89.623 Pressure ulcer of left heel, stage 3; L97.419 Non-pressure chronic ulcer of right heel and midfoot with unspecified severity; L97.322 Non-pressure chronic ulcer of left ankle with fat layer exposed; L97.119 Non-pressure chronic ulcer of right thigh with unspecified severity; G60.9 Hereditary and idiopathic neuropathy, unspecified; G82.54 Quadriplegia, C5-C7 incomplete; L30.9 Dermatitis, unspecified; B35.6 Tinea cruris; L60.8 Other nail disorders; Y82.9 Unspecified medical devices associated with adverse incidents
CPT/HCPCS: 11042; 11043; 11045; 15275; 36415; 73630; 80053; 84134; 85025; 85652; 86140; 87070; 87073; 87076; 87077; 87186; 87205; 97597; 99212; 99213; 99214; 99215; Q4187

== ENCOUNTER 2024-05-29 11:45 | Inpatient (IN) | payer MEDICARE, MEDICAID, SELFPAY ==
[2024-05-29] VITALS (11 sets, daily range): BP systolic 94–154; BP diastolic 51–87; PULSE 60–90; RESP 14–20; TEMP 36.2–36.5; O2SAT 81–94; BMI 35.1
--- NOTE | ~2024-05-29 | CT_ITS ---
EXAMINATION: CT CHEST WITHOUT CONTRAST CLINICAL INFORMATION: Hypoxia COMPARISON: 12/03/2023. Chest x-ray dated 05/29/2024, and 04/29/2024. TECHNIQUE: Multidetector volumetric CT imaging of the chest was done. Axial MIP volume rendering provided. Sagittal and coronal reformatted images were obtained. This CT examination was performed using dose optimization techniques as appropriate, variously including the following: *Automated exposure control *Adjustment of mA and/or kV according to patient size (this includes techniques or standardized protocols for targeted exams where dose is matched to indication/reason for exam; i.e. extremities or head) *Use of iterative reconstruction technique DLP: 399 mGy-cm FINDINGS: SHOE COBBLER: There is a single-lead pacer device in place in the left chest wall, with single lead extending into the right ventricle. LUNGS: -Exam limited by respiratory motion, an expiratory appearance of the trachea with inbowing of the posterior membranous wall. -Worsening volume loss and consolidation throughout the majority of the right mid and lower lung, with associated rightward mediastinal shift and volume loss. -In the aerated right lung, there is peribronchial thickening, peribronchial vascular opacity, and gross consolidation of the majority of the mid and lower lung. Impression -Extensive volume loss in the right lower lobe and right middle lobe. -Small right sided effusion is associated, not large enough to be drainable. -The left lung demonstrates lower lobe volume loss and partial atelectasis medially. The upper lobe and remainder of the left lung appear normally pneumatized. There is no significant left effusion. There is trace left pleural fluid. -No suspicious nodules or masses are appreciated although evaluation of the right lung is limited due to the degree of consolidation. MEDIASTINUM: -There is mediastinal shift to the right due to volume loss. There is cardiomegaly with marked right atrial and left atrial enlargement. Moderate-sized pericardial effusion is unchanged, predominantly noted on the right. -Aorta is normal in caliber with moderate calcification. -Main pulmonary artery is normal in size. -There is no adenopathy in the mediastinum or hilar regions. -Thyroid is not well seen and may be surgically absent or atrophic. -No pneumothorax. CORONARY ARTERY CALCIFICATION: Mild three-vessel coronary calcification. PLEURA: As above. AXILLA/CHEST WALL: No masses or lymphadenopathy. UPPER ABDOMEN: -Elevated right hemidiaphragm. -Fatty atrophy of the pancreas. -Remainder of the limited imaging of the upper abdominal contents demonstrates no abnormalities. OSSEOUS STRUCTURES: -Severe degenerative changes of the shoulder joints. Degenerative changes throughout the spine. No suspicious lytic or blastic bone lesions. CT/CT chest wo IV con IMPRESSION: 1. Worsening volume loss and consolidation throughout the right lung with sparing of the right apex. Findings are highly suspect for worsening infectious pneumonia, likely bronchopneumonia. There is a tiny parapneumonic effusion on the right and a trace effusion on the left. 2. There is mediastinal shift to the right due to right lung volume loss. 3. There is a mild amount of volume loss in the left lower lobe medially due to atelectasis. Left lung otherwise clear. Trace left pleural fluid. 4. Cardiomegaly with predominantly left atrial and right atrial enlargement. Pericardial effusion, moderate in size. There is a single-lead pacer in place, lead in the right ventricle. Fleischner guidelines were followed. Electronically signed by: Frandy Wilson MD 05/30/2024 01:10 PM [facility]
--- NOTE | ~2024-05-29 | MR_ITS ---
CLINICAL HISTORY: cardiac arrest MR of the brain without contrast Comparison: None Findings: No acute infarction, hemorrhage, mass-effect or herniation. No hydrocephalus. Increased signal intensity is seen in the deep and periventricular white matter on the T2/FLAIR sequences, which most likely represents the sequela of mild chronic small vessel ischemic disease. No extra-axial fluid collection or mass. Unremarkable sella. Intact flow voids. Normal orbits. Mucosal thickening and fluid in the left maxillary sinus. Mucosal thickening in frontal sinuses, greatest on the right. Trace mucosal thickening in the ethmoid air cells and right maxillary sinus. The sphenoid sinuses are clear. There is fluid signal in the bilateral mastoid air cells. Unremarkable osseous structures. Impression: No acute intracranial findings. No MR evidence of hypoxic ischemic encephalopathy. Sinusitis could be considered. Fluid in the bilateral mastoid air cells may indicate effusions or mastoiditis. This document has been electronically signed by: Jennifer Enriquez MD on 06/15/2024 16:48:32
--- NOTE | ~2024-05-29 | XR_ITS ---
CLINICAL HISTORY: RAJ, CVL placement, OG 1 view chest x-ray Comparison: CR - XR CHEST 1V - 06/05/2024 12:45 PM EST Findings: There is improved aeration in the right upper lobe suggesting Improving atelectasis and effusion. Likely moderate left effusion. interval placement of ETT and NG tube are adequately positioned. Cardiac pacemaker present. interval placement of Left central venous catheter / PICC line adequately positioned. No acute fracture. IMPRESSION: 1. There is improved aeration in the right upper lobe suggesting Improving atelectasis and effusion. 2. Likely moderate left effusion. 3. Interval placement of ETT, NG tube and left central venous catheter all adequately positioned. This document has been electronically signed by: Amari Sutton MD on 06/08/2024 06:27:17
--- NOTE | ~2024-05-29 | XR_ITS ---
CLINICAL HISTORY: hypoxia Single view of the chest. COMPARISON: XR chest dated 05/29/24 at 12:41 EST FINDINGS: Left-sided cardiac pacemaker leads appear in stable position. Right heart border is obscured however cardiac silhouette appears enlarged, similar to prior imaging. Interval worsening of large right pleural effusion with associated atelectasis now completely opacifying the right lung and shifting the mediastinum to the right. Likely small left pleural effusion. No pneumothorax. No acute fracture identified. IMPRESSION: 1. Interval worsening of likely large right pleural effusion with overlying atelectasis completely opacifying the right lung and shifting the mediastinum to the right. 2. Likely small left pleural effusion. This document has been electronically signed by: Santo Holland MD on 06/05/2024 13:39:33
--- NOTE | ~2024-05-29 | XR_ITS ---
EXAMINATION: XR CHEST CLINICAL INFORMATION: sob COMPARISON: April 29, 2024. TECHNIQUE: Upright portable AP view of the chest was obtained. FINDINGS: The study is limited by portable technique, low lung volumes, patient body habitus, and the lower lung jade being cut off the film. Suspect mild shift the mediastinum toward the right, indicating an element of volume loss on the right. Bibasilar patchy and hazy density suggests pleural fluid, atelectasis, and/or infiltrate. Cannot confirm or exclude small left basilar pleural fluid, atelectasis, and/or infiltrate on this limited study. The cardiac silhouette is suboptimally evaluated. The tip of a left subclavian pulse generator device lead projects over the cardiac silhouette. Question uncoiled aorta, raising suspicion for hypertension. Mild degenerative changes of the spine and shoulders. XR/XR chest 1V IMPRESSION: Findings as above. Electronically signed by: Samuel Doran MD 05/29/2024 12:53 PM [facility]
--- NOTE | ~2024-05-29 | XR_ITS ---
CLINICAL HISTORY: ETT placement 1 view chest x-ray Comparison: CR/SR - XR CHEST 1V - 06/11/24 09:33 EST Findings: Endotracheal tube with tip 4.6 cm proximal to the tex. Left internal jugular central venous catheter, enteric tube and left sided ICD appear stable. The heart is enlarged. Bilateral pulmonary opacities and left-sided pleural effusion. No pneumothorax is identified. Osseous structures appear stable. IMPRESSION: 1. Endotracheal tube with tip 4.6 cm proximal to the tex. 2. Stable cardiomegaly, bilateral pulmonary opacities either edema or pneumonia and left-sided pleural effusion. This document has been electronically signed by: Susan Tate MD on 06/12/2024 04:17:44
--- NOTE | ~2024-05-29 | XR_ITS ---
EXAMINATION: XR CHEST CLINICAL INFORMATION: right lower lobe collapse COMPARISON: Chest 06/08/2024 TECHNIQUE: Frontal view of the chest was obtained. FINDINGS: The lungs are hypoexpanded with moderate opacity in the right lung base likely combination of effusion/atelectasis/infiltrate. Similar but lesser findings are seen in the left lung base. Position of the endotracheal tube is 4.6 cm above the tex. Endotracheal tube is below the diaphragm in the stomach. No gross bony abnormality seen. There is a left central venous catheters tip at the brachiocephalic venous junction. No gross bony abnormality seen. XR/XR chest 1V IMPRESSION: Support lines and catheters are stable. There are bilateral lower lobe opacities right renal left from underlying effusion/infiltrate/atelectasis, stable to 06/08/2024 exam. Electronically signed by: Timothy Quinn MD 06/10/2024 09:[address] [facility]
--- NOTE | ~2024-05-29 | XR_ITS ---
EXAMINATION: XR CHEST CLINICAL INFORMATION: intubated COMPARISON: X-ray dated June 10, 2024 TECHNIQUE: Frontal view of the chest was obtained. FINDINGS: The endotracheal tube is 5 cm above tex. There is persistent pulmonary edema bilateral pleural effusions versus multifocal pneumonia. Left-sided central venous line remains at the innominate/superior vena cava junction. NG tube in the mediastinum. XR/XR chest 1V IMPRESSION: Endotracheal tube ends 5 cm above tex. Stable lungs and chest. Electronically signed by: Douglas Castillo MD 06/11/2024 10:34 AM [facility]
--- NOTE | ~2024-05-29 | CT_ITS ---
CLINICAL HISTORY: rule out pulmonary embolism CT angiography chest with contrast. 3D Postprocessing. Comparison: CR - XR CHEST 1V - 06/08/24 05:51 EST Findings: Heart is enlarged with moderate pericardial effusion on the right side. Pacemaker. The tip of left IJ is in the left innominate vein. Post intubation. NG tube. The thoracic aorta is normal caliber. No acute pulmonary embolus. The distal pulmonary arteries are poorly visualized. There is a hypodense area of the distal right main pulmonary artery series 7, image 26. On the coronal view, the finding likely represents fat in the hilum. The visualized thyroid and mediastinum are unremarkable. Small bilateral pleural effusion. There is opacity of the bilateral lungs. There is reflux of contrast into the hepatic vein. No acute fractures. Possible motion artifact of the sternum. IMPRESSION: No evidence of large central pulmonary emboli in the visualized pulmonary artery. Suboptimal opacification of the distal pulmonary arteries. Cardiomegaly with moderate pericardial effusion. Evidence of right heart failure. Small bilateral pleural effusion. Opacities of the bilateral lungs could represent atelectatic change or pneumonia. The distal tip of the left IJ is in the left innominate vein. Advancement is recommended as indicated. This document has been electronically signed by: Stephanie Rodas MD on 06/08/2024 17:11:34
--- NOTE | 2024-05-29 12:00 | PC.NURSE ---
patient presented to ED from halfway with increased sob and productive cough x24 hr. patient states he has no pain or discomfort. patient has suprapubic catheter in place and colostomy. suprapubic draining cloudy yellow urine. patient is alert and oriented x3, bed bound at baseline with right sided deficit. patient IV access obtained in the left wrist #[id number], labs drawn and sent. patient VSS, resp even, slightly labored, patient has coarse crackles in the left upper lobe. patient has productive cough, unable to cough up sputum. patient requiring 4-5 L NC to maintain o2 sat above 90s. RT and ED provider called to bedside
--- NOTE | 2024-05-29 12:04 | ED.SOB ---
HPI - SOB/Dyspnea General Chief Complaint: Dyspnea Stated Complaint: SOB/ pt on 4L 02 per ems Time Seen by Provider: 05/29/24 11:52 Source: patient Mode of arrival: ambulatory Limitations: no limitations History of Present Illness ED Provider: ALESHA Arias HPI Narrative: This is a 68-year-old male history of chronic pain syndrome, osteoarthritis, osteomyelitis, a fib on cumadin, nonweightbearing in a wheelchair at baseline due to spinal cord injury, presenting to the emergency department with fatigue, malaise, myalgias, shortness of breath, chest congestion and cough since yesterday. He reports cough is productive. He is coming from a intermediate there is no sick contacts per patient. He reports he feels like he is gasping for air. He does not wear oxygen at home. He denies chest pain, fevers, chills, nausea, vomiting, abdominal pain, changes in urination or bowel habits, vision changes, dizziness, weakness. Related Data Home Medications ?Medication ?Instructions ?Recorded ?Confirmed ascorbic acid (vitamin C) 500 mg 500 mg PO DAILY 03/23/20 04/29/24 tablet baclofen 10 mg tablet 20 mg PO TID@0900,1300,1700 03/23/20 04/29/24 baclofen 10 mg tablet 40 mg PO BEDTIME 03/23/20 04/29/24 calcitriol 0.25 mcg capsule 0.25 mcg PO DAILY 03/23/20 04/29/24 docusate sodium 100 mg capsule 200 mg PO BEDTIME 03/23/20 04/29/24 (Colace) cholecalciferol (vitamin D3) 1,250 1,250 mcg PO QMONTH 01/09/23 04/29/24 mcg (50,000 unit) tablet dicyclomine 10 mg capsule 10 mg PO QID 01/09/23 04/29/24 furosemide 20 mg tablet 20 mg PO DAILY 01/09/23 04/29/24 gabapentin 100 mg capsule 100 mg PO BID@0800,1400 01/09/23 04/29/24 gabapentin 600 mg tablet 600 mg PO BEDTIME 01/09/23 04/29/24 melatonin 10 mg tablet 10 mg PO BEDTIME Sleep 01/09/23 04/29/24 midodrine 10 mg tablet 10 mg PO TIDAC 01/09/23 04/29/24 acetaminophen 325 mg tablet 650 mg PO Q6H PRN 11/26/23 04/29/24 headache/fever/bodyaches levothyroxine 125 mcg tablet 125 mcg PO DAILY@0630 11/26/23 04/29/24 nystatin 100,000 unit/gram topical 1 appl topical BID Rash 11/26/23 04/29/24 powder (Nyamyc) trazodone 150 mg tablet 75 mg PO BEDTIME 11/26/23 04/29/24 ferrous sulfate 325 mg (65 mg 325 mg PO DAILY 12/04/23 04/29/24 iron) tablet (FeroSul) miconazole nitrate 2 % topical 1 appl topical BID PRN fungal rash 12/04/23 04/29/24 cream sennosides 8.6 mg tablet (senna) 8.6 mg PO DAILY PRN Constipation 12/04/23 04/29/24 apixaban 5 mg tablet (Eliquis) 5 mg PO BID 04/29/24 04/29/24 Previous Rx's ?Medication ?Instructions ?Recorded tramadol 50 mg tablet 50 mg PO Q8H PRN Pain, 01/10/23 Moderate(Pain Scale 4-6) #14 tabs methenamine hippurate 1 gram tablet 1 g PO BID #180 tabs 12/06/23 oxybutynin chloride 10 mg 10 mg PO DAILY #90 tabs 12/06/23 tablet,extended release 24 hr cefpodoxime 100 mg tablet 100 mg PO BID #20 tabs 05/03/24 Allergies Allergy/AdvReac Type Severity Reaction Status Date / Time dicloxacillin [From DYNAPEN] Allergy Unknown Unknown Verified 05/29/24 11:55 ofloxacin [From FLOXIN] AdvReac Intermediate Abdominal Verified 05/29/24 11:55 Pain penicillin V AdvReac Intermediate Abdominal Verified 05/29/24 11:55 Pain Review of Systems Review of Systems: Yes all other systems are reviewed and are negative PMFSH Past Medical History Attestation statement: The following information was validated with the patient. Source: old records reviewed and nursing notes reviewed Medical History Suprapubic catheter dysfunction Neurogenic bladder Quadriplegia, C5-C7 incomplete Atrial fibrillation Chronic restrictive lung disease Pneumonia Urine retention Irreducible left inguinal hernia Autonomic dysfunction Hypothyroidism Hernia Spasms of the hands or feet Spinal cord injury Surgical History Chronic suprapubic catheter S/P tendon repair H/O hemorrhoidectomy S/P IVC filter H/O hernia repair H/O thyroidectomy Family History Family History Sister Diabetes mellitus Social History Social History Household Members: Unknown / Unable to assess Household Members Other:: intermediate Housing: Unknown / Unable to assess Housing Other:: intermediate in [place] Do you presently have visiting nurse or other home services: No Alcohol intake: former Comment: low extremity paralysis Patient Tobacco Use Status: Tobacco use Unknown Advance Directives: Yes Advance Directives on File: Yes Advance Directives Date on File: 01/09/23 Do you have a plan to hurt others: No Plan service: No Physical Exam Vital Signs: Vital Signs: Last Vital Signs Temp 97.7 F 05/29/24 13:16 Pulse 61 05/29/24 13:16 Resp 16 05/29/24 13:16 BP 94/72 05/29/24 13:16 Pulse Ox 91 L 05/29/24 13:16 O2 Del Method Oxymask 05/29/24 13:16 O2 Flow Rate 4 05/29/24 13:16 Oxygen Flow Rate 4 05/29/24 11:52 BMI result Body Mass Index 35.1 Patient is hypoxic at 81% on room air. Placed on 4 L goes up to 92%. Appearance: Alert.? Oriented X3.? No acute distress.? Head: Normocephalic, atraumatic, no step-offs or deformities Eyes: Pupils equal, round and reactive to light.? Neck: Normal inspection.? Neck supple.? CVS: Normal heart rate and rhythm.? Pulses normal.? Respiratory: No respiratory distress.? Breath sounds significant crackles to bilateral lobes worse to the right lower lobe.? Abdomen: Soft and nontender.? Skin: Skin warm and dry.? Normal skin color.? Normal skin turgor.? Extremities: No lower extremity edema.? No calf ttp. 5/5 strength to bilateral upper and lower extremities Neuro: Oriented X 3.? No motor deficit.? No sensory deficit. CN 2-12 intact Course Reevaluation(s) Reevaluation #1: CBC with no acute findings. Chemistry no acute findings eating intervention. Lactic acid normal. Coags normal. Flu, COVID, RSV negative. X-ray does show some signs of right-sided pneumonia, this is consistent with patient's exam as well as with vital signs of hypoxia and intermittent tachycardia. At this time infection suspected will also add a 30 cc/kilos bolus. Time: 14:23 Medications Administered Discontinued Medications Generic Name Dose Route Start Last Admin Trade Name Fausto PRN Reason Stop Dose Admin Ceftriaxone Sodium 1 gm 05/29/24 12:05 05/29/24 12:43 Ceftriaxone Sodium 1 Gm Vial IVPUSH 05/29/24 12:06 1 gm ONCE ONE Administration Albuterol Sulfate 2.5 mg/ 0 mg 05/29/24 12:22 05/29/24 12:29 Albuterol/Ipratropium 3 ml INHALE 05/29/24 12:23 5 dose ONCE ONE Administration Magnesium Sulfate 2 gm in 50 mls @ 25 mls/hr 05/29/24 12:05 05/29/24 12:21 Magnesium Sulfate/H2o IV 05/29/24 14:04 25 mls/hr ONCE ONE Administration Azithromycin 500 mg/ Sodium 250 mls @ 125 mls/hr 05/29/24 12:13 05/29/24 13:21 Chloride IV 05/29/24 14:12 125 mls/hr ONCE ONE Administration Methylprednisolone Sodium Succinate 125 mg 05/29/24 12:05 05/29/24 12:21 Methylprednisolone Sod Succ 125 Mg/2 Ml Vial IVPUSH 05/29/24 12:06 125 mg ONCE ONE Administration Medical Decision Making Medical Decision Making [facility] Narrative: 1217 68-year-old male presents with upper respiratory symptoms and shortness of breath for the past 2 days. Coming from a intermediate. Physical exam significant bilateral crackles worse on the right lower lobe. History and physical exam concerning for viral illness versus bronchitis versus pneumonia. Unlikely PE patient anticoagulated unlikely ACS, COPD exacerbation. Plan labs, imaging, urine, viral testing. Will also order bronch protocol Differential Diagnosis Differential Diagnoses: The differential diagnosis associated with the presentation includes (History and physical exam concerning for viral illness versus bronchitis versus pneumonia. Unlikely PE patient anticoagulated unlikely ACS, COPD exacerbation.) Admission/Observation Consideration of admission/observation: Escalation of care including admission/observation considered (Very likely due to hypoxia) Consult Healthcare Provider Management of the patient was discussed with: Hospitalist Lab Data MDM Lab Attestation statement: I reviewed the patient's lab results. 05/29/24 12:05 05/29/24 12:05 Labs: Lab Results 05/29/24 05/29/24 Range/Units 12:05 12:41 WBC 7.7 (4.8-10.8) X10*3/uL RBC 3.81 L (4.60-5.80) X10*6/uL Hgb 10.6 L (14.0-18.0) g/dl Hct 33.4 L (42.0-52.0) % MCV 87.7 (80.0-98.0) fL MCH 27.8 (27.0-33.0) pg MCHC 31.7 (31.0-36.0) g/dl RDW 16.4 H (11.0-16.0) % Plt Count 261 (160-400) X10*3/uL MPV 8.9 L (9.4-12.4) fL Immature Gran % (Auto) 0.5 H (0.0-0.4) % Neut % (Auto) 71.3 (45-73) % Lymph % (Auto) 18.0 L (20-40) % [place] % (Auto) 7.2 (2-11) % Eos % (Auto) 2.6 (0-4) % Baso % (Auto) 0.4 (0-2) % Lymph # (Auto) 1.4 (1.2-4.9) X10*3/uL [place] # (Auto) 0.6 (0.1-1.2) X10*3/uL Eos # (Auto) 0.2 (0.0-0.4) X10*3/uL Baso # (Auto) 0.0 (0.0-0.2) X10*3/uL Abs Immat Gran (auto) 0.04 H (0.00-0.03) X10*3/uL Absolute Neuts (auto) 5.5 (2.0-8.3) x10*3/uL Absolute Nucleated RBC 0.000 (0.0-0.012) X10*3/uL Nucleated RBC % (auto) 0.0 (0.0-0.2) /100WBC PT 22.5 H (10.9-12.4) SEC INR 1.9 H (0.9-1.1) Sodium 139 (135-145) mmol/L Potassium 3.6 (3.3-5.1) mmol/L Chloride 100 (96-108) mmol/L Carbon Dioxide 29 (22-29) mmol/L Anion Gap 14 (12-20) BUN 14 (9-16) mg/dL Creatinine 0.62 (0.5-1.4) mg/dL Estim Creat Clear Calc 170.7 Estimated GFR > 60 Random Glucose 96 (60-115) mg/dL Lactic Acid 0.9 (0.5-2.0) mmol/L Calcium 8.5 D (8.4-10.2) mg/dL Magnesium 1.8 (1.6-2.6) mg/dL Total Bilirubin 0.5 (0.0-1.0) mg/dL AST 21 (5-37) U/L ALT 12 (0-40) U/L Alkaline Phosphatase 70 (39-117) U/L Total Protein 7.5 (6.5-8.0) g/dL Albumin 3.7 (3.5-5.0) g/dL Lipase 12 (8-78) U/L Influenza Type A (PCR) NEGATIVE (Negative) Influenza Type B (PCR) NEGATIVE (Negative) RSV RNA Qual (PCR) NEGATIVE (Negative) SARS-CoV-2 RNA (RT-PCR) NEGATIVE (Negative) Independent Interpretation I performed an independent interpretation of an: EKG and Plain X-Ray (FINDINGS: The study is limited by portable technique, low lung volumes, patient body habitus, and the lower lung jade being cut off the film. Suspect mild shift the mediastinum toward the right, indicating an element of volume loss on the right. Bibasilar patchy and hazy density suggests pleu) Radiology Impression Discussion of test interpretation with radiology: I have reviewed the radiologist's reading. External Record Review External record reviewed: Inpatient record, Office record, Outpatient record, Prior outpatient labs, Prior outpatient radiology, Primary care record and Outside ED record Chronic Conditions Patient?s care impacted by: Other (see hpi ) Critical Care Time Critical Care Time Critical Care Time: Yes Total Critical Care Time: 35 Attestation: I attest to this time spent taking care of the patient, obtaining history, physical, reviewing labs, imaging, treatment of patients condition +/- specialist/hospitalist consult Discharge Plan Discharge Clinical Impression: Spinal cord injury, Pneumonia, Hypoxia Patient Disposition: Still a Patient Prescriptions: No Action ascorbic acid (vitamin C) 500 mg Tablet 500 mg PO DAILY baclofen 10 mg tablet 20 mg PO TID@0900,1300,1700 baclofen 10 mg tablet 40 mg PO BEDTIME docusate sodium [Colace] 100 mg Capsule 200 mg PO BEDTIME calcitriol 0.25 mcg capsule 0.25 mcg PO DAILY gabapentin 600 mg tablet 600 mg PO BEDTIME furosemide 20 mg tablet 20 mg PO DAILY gabapentin 100 mg capsule 100 mg PO BID@0800,1400 dicyclomine 10 mg capsule 10 mg PO QID Rx Instructions: with meals midodrine 10 mg Tablet 10 mg PO TIDAC melatonin 10 mg Tablet 10 mg PO BEDTIME cholecalciferol (vitamin D3) 1,250 mcg (50,000 unit) Tablet 1,250 mcg PO QMONTH Rx Instructions: every month on the tramadol 50 mg Tablet 50 mg PO Q8H PRN (Reason: Pain, Moderate(Pain Scale 4-6)) Qty: 14 0RF trazodone 150 mg tablet 75 mg PO BEDTIME levothyroxine 125 mcg tablet 125 mcg PO DAILY@0630 nystatin [Nyamyc] 100,000 unit/gram powder 1 appl topical BID Rx Instructions: use with cream, apply to buttocks acetaminophen 325 mg tablet 650 mg PO Q6H PRN (Reason: headache/fever/bodyaches) Rx Instructions: For 10 days then as needed ferrous sulfate [FeroSul] 325 mg (65 mg iron) tablet 325 mg PO DAILY sennosides [senna] 8.6 mg Tablet 8.6 mg PO DAILY PRN (Reason: Constipation) miconazole nitrate 2 % Cream 1 appl TOPICAL BID PRN (Reason: fungal rash) methenamine hippurate 1 gram Tablet 1 g PO BID Qty: 180 0RF oxybutynin chloride 10 mg tablet extended release 24hr 10 mg PO DAILY Qty: 90 0RF Eliquis 5 mg tablet 5 mg PO BID cefpodoxime 100 mg tablet 100 mg PO BID Qty: 20 0RF Rx Instructions: must administer with a meal/food Print Language: Maori
[2024-05-29 12:09] LABS: MANUAL DIFF FLAG NO
[2024-05-29 12:10] LABS: Basophils Percent Auto 0.4 % (0-2); Eosinophils Absolute Auto 0.2 X10*3/uL (0.0-0.4); Eosinophils Percent Auto 2.6 % (0-4); Hematocrit 33.4 % (42.0-52.0); Hemoglobin 10.6 g/dl (14.0-18.0); Imm Gran Abs Auto 0.04 X10*3/uL (0.00-0.03); Imm Gran Pct Auto 0.5 % (0.0-0.4); Lymphocytes Absolute Auto 1.4 X10*3/uL (1.2-4.9); Mean Corpuscular HGB Conc 31.7 g/dl (31.0-36.0); Mean Corpuscular Hemoglobin 27.8 pg (27.0-33.0); Mean Corpuscular Volume 87.7 fL (80.0-98.0); Mean Platelet Volume 8.9 fL (9.4-12.4); Monocytes Absolute Auto 0.6 X10*3/uL (0.1-1.2); Monocytes Percent Auto 7.2 % (2-11); Neutrophils Absolute Auto 5.5 x10*3/uL (2.0-8.3); Neutrophils Percent Auto 71.3 % (45-73); Platelet Count 261 X10*3/uL (160-400); Red Blood Count 3.81 X10*6/uL (4.60-5.80); Red Cell Distribution Width 16.4 % (11.0-16.0); White Blood Count 7.7 X10*3/uL (4.8-10.8)
[2024-05-29 12:16] LABS: INTERNATIONAL NORM RATIO 1.9 (0.9-1.1); Prothrombin Time 22.5 SEC (10.9-12.4)
--- NOTE | 2024-05-29 12:19 | ECG_ITS ---
Test Reason : sob Blood Pressure : / mmHG Vent. Rate : 061 BPM Atrial Rate : 000 BPM P-R Int : 000 ms QRS Dur : 132 ms QT Int : 482 ms P-R-T Axes : 000 -22 049 degrees QTc Int : 485 ms V-paced rhythm Abnormal ECG When compared with ECG of 29-APR-2024 10:21, No significant changes seen Referred By: Abisai Arias Electronically Signed By:Edgar Jaime
[2024-05-29] MEDS: methylPREDNISolone Sod Succ 125 MG/2 ML VIAL IVPUSH (12:21)
[2024-05-29] MEDS: Magnesium Sulfate/H2O 2 GM/50 ML PIGGYBACK IV (12:21)
[2024-05-29 12:27] LABS: Alanine Aminotransferase 12 U/L (0-40); Albumin Level 3.7 g/dL (3.5-5.0); Alkaline Phosphatase 70 U/L (39-117); Anion Gap 14 (12-20); Aspartate Amino Transferase 21 U/L (5-37); Bilirubin Total 0.5 mg/dL (0.0-1.0); Blood Urea Nitrogen 14 mg/dL (9-16); Calcium 8.5 mg/dL (8.4-10.2); Carbon Dioxide 29 mmol/L (22-29); Chloride 100 mmol/L (96-108); Creatinine Clr Calc Pharmacy 170.7; Estimated Glomerular Filt Rate > 60; Glucose Random 96 mg/dL (60-115); Lipase 12 U/L (8-78); Magnesium 1.8 mg/dL (1.6-2.6); Potassium 3.6 mmol/L (3.3-5.1); Sodium 139 mmol/L (135-145); Total Protein 7.5 g/dL (6.5-8.0)
[2024-05-29] MEDS: Albuterol Sulfate 2.5 MG, Albuterol/Iprat 2.5/0.5MG 3 ML 3 ML INHALE (12:29)
--- OUTSIDE RECORDS SUMMARY | 2024-05-29 12:42 | XMS_ITS | Clinical Summary ---
Author Organization Unknown Care Team Providers Care Vulcan Crewmember Name Role Phone HOLLAND GUTIERREZ, RENITA Unavailable Unavailable EVELINA RN, BONY Unavailable Unavailable BENEDICT PT, LISA Unavailable Unavailable [facility]Y [facility] TECHNICAL LEAD SENIOR DEVELOPER, OCEAN Unavailable Unavailable KLEVER [facility] TECHNICAL LEAD SENIOR DEVELOPER, PAT Unavailable Unavailabl e KALETINA [facility] TECHNICAL LEAD SENIOR DEVELOPER, VENKAT Unavailable Unavailab onel MCCRACKEN RN, BAM Unavailable Unavailable Payers Payer Name Policy Type Policy Number Effective Date Expira tion Date MEDICARE - [facility] - [place] [id number] [place] [facility] [id number] Problems Condition Name Condition Details Condition Category Status Onset Date Resolution Date Last Treatment Date Treating Clinician Comments PERMANENT ATRIAL FIBRILLATION Active 2021-06- 00:00: 00 PRESSURE ULCER OF RIGHT HEEL, STAGE 2 Active 2021-06 00:00: 00 PRESSURE ULCER OF LEFT HEEL, STAGE 2 Active 2021-06 00:00: 00 PRESSURE ULCER OF [place], STAGE 2 Active 2021-06 0 00:00: 00 HYPERTENSIVE HEART DISEASE WITH HEART FAILURE Active 06-05 00:00: 00 ACUTE ON CHRONIC SYSTOLIC (CONGESTIVE) HEART FAILURE Active 06-05 00:00: 00 ANEMIA, UNSPECIFIED Active 06-05 00:00: 00 QUADRIPLEGIA , UNSPECIFIED Active 06-05 00:00: 00 OTHER CHRONIC PAIN Active 06-05 00:00: 00 ORTHOSTATIC HYPOTENSION Active 06-05 00:00: 00 HYPOTHYROIDI SM, UNSPECIFIED Active 06-05 00:00: 00 NEUROMUSCULA R DYSFUNCTION OF BLADDER, UNSPECIFIED Active 06-05 00:00: 00 PRESENCE OF CARDIAC PACEMAKER Active 06-05 00:00: 00 PERSONAL HISTORY OF OTHER VENOUS THROMBOSIS AND EMBOLISM Active 06-05 00:00: 00 Allergies, Adverse Reactions, Alerts Allergy Name Allergy Type Status Severity Reaction(s) Onset Date Inactive Date Treating Clinician Comments FLOXIN Propensity to adverse reactions Active 01-29 18:10: 17 PENICILLIN AND DERIVATIVES Propensity to adverse reactions Active 01-29 18:10: 03 DYNAPEN Propensity to adverse reactions Active 01-31 08:04: 09 Medications Ordered Medication Name Filled Medication Name Start Date Stop Date Current Medication? Ordering Clinician Indication Dosage Frequency Signature (SIG) Comments Components fludrocorti sone 0.1 mg tablet 2019-06 00:00: 00 01-29 00:00 :00 No [id number] Per instruc tions Per instructio ns (route: oral) Med Classific ation: Endocrine diazepam 2 mg tablet 2019-06 00:00: 00 01-29 00:00 :00 No [id number] Per instruc tions Per instructio ns (route: oral) Med Classific ation: Central Nervous System Agents levothyroxi ne 100 mcg tablet 2019-0615 00:00: 00 01-29 00:00 :00 No [id number] Per instruc tions Per instructio ns (route: oral) Med Classific ation: Endocrine oxybutynin chloride 5 mg tablet 2019-0616 00:00: 00 01-29 00:00 :00 No [id number] Per instruc tions Per instructio ns (route: oral) Med Classific ation: Genitouri nary Therapy baclofen 10 mg tablet 2019-06 00:00: 00 01-29 00:00 :00 No [id number] Per instruc tions Per instructio ns (route: oral) Med Classific ation: Locomotor System calcitriol 0.25 mcg capsule 01-29 00:00: 00 08-11 23:59 :00 No [id number] 1 mcg DAILY 1 mcg DAILY (route: oral) Med Classific ation: Electroly te Balance-N utritiona l Products metoprolol tartrate 25 mg tablet 2019-06 00:00: 00 01-29 00:00 :00 No [id number] Per instruc tions Per instructio ns (route: oral) Med Classific ation: Cardiovas cular Therapy Agents acetaminoph en 325 mg tablet 01-29 00:00: 00 08-11 23:59 :00 No [id number] 2 tablet NEEDED 2 tablet NEEDED (route: oral) Med Classific ation: Analgesic , Anti-infl ammatory or Antipyret ic Antifungal (clotrimazo le) 1 % topical cream 01-29 00:00: 00 08-11 23:59 :00 No [id number] 1 inch DAILY 1 inch DAILY (route: topical) Med Classific ation: Dermatolo gical ascorbic acid (vitamin C) 500 mg capsule 01-29 00:00: 00 08-11 23:59 :00 No [id number] 1 capsule DAILY 1 capsule DAILY (route: oral) Med Classific ation: Electroly te Balance-N utritiona l Products baclofen 20 mg tablet 01-29 00:00: 00 08-11 23:59 :00 No [id number] 1 tablet 2 TIMES DAILY 1 tablet 2 TIMES DAILY (route: oral) Med Classific ation: Locomotor System bisacodyl 10 mg rectal suppository 01-29 00:00: 00 08-11 23:59 :00 No [id number] 1 supposi tory, rectal DAILY 1 suppositor y, rectal DAILY (route: rectal) Med Classific ation: Gastroint estinal Therapy Agents cholecalcif linsey (vitamin D3) 1,250 mcg (50,000 unit) capsule 01-29 00:00: 00 08-11 23:59 :00 No [id number] 1 capsule DAILY 1 capsule DAILY (route: oral) Med Classific ation: Electroly te Balance-N utritiona l Products Col-Rite 100 mg capsule 01-29 00:00: 00 08-11 23:59 :00 No [id number] 2 capsule BEDTIME 2 capsule BEDTIME (route: oral) Med Classific ation: Gastroint estinal Therapy Agents dicyclomine 20 mg tablet 01-29 00:00: 00 08-11 23:59 :00 No [id number] .[id number] tablet 4 TIMES DAILY .5 tablet 4 TIMES DAILY (route: oral) Med Classific ation: Gastroint estinal Therapy Agents ferrous sulfate 325 mg (65 mg iron) tablet 01-29 00:00: 00 08-11 23:59 :00 No [id number] 1 tablet DAILY 1 tablet DAILY (route: oral) Med Classific ation: Electroly te Balance-N utritiona l Products gabapentin 100 mg capsule 01-29 00:00: 00 08-11 23:59 :00 No [id number] 2 capsule 3 TIMES DAILY 2 capsule 3 TIMES DAILY (route: oral) Med Classific ation: Central Nervous System Agents Lasix 40 mg tablet 01-29 00:00: 00 08-11 23:59 :00 No [id number] 1 tablet DAILY 1 tablet DAILY (route: oral) Med Classific ation: Cardiovas cular Therapy Agents levothyroxi ne 112 mcg capsule 01-29 00:00: 00 08-11 23:59 :00 No [id number] 1 capsule DAILY 1 capsule DAILY (route: oral) Med Classific ation: Endocrine Remedy Calazime Intensive Skin Therapy 0.44 %-20.6 % topical paste 01-29 00:00: 00 08-11 23:59 :00 No [id number] 1 gram DAILY 1 gram DAILY (route: topical) Med Classific ation: Dermatolo gical warfarin 2 mg tablet 02-09 00:00: 00 02-09 23:59 :00 No [id number] 2 mg DAILY 2 mg DAILY (route: oral) Med Classific ation: Hematolog ical Agents warfarin 3 mg tablet 02-03 00:00: 00 02-09 23:59 :00 No [id number] 3 mg DAILY 3 mg DAILY (route: oral) Med Classific ation: Hematolog ical Agents warfarin 3 mg tablet 02-08 00:00: 00 02-14 23:59 :00 No [id number] 1 tablet DAILY 1 tablet DAILY (route: oral) Med Classific ation: Hematolog ical Agents warfarin 4 mg tablet 02-21 00:00: 00 02-27 23:59 :00 No [id number] Per instruc tions DAILY Per instructio ns DAILY (route: oral) Med Classific ation: Hematolog ical Agents warfarin 3 mg tablet 02-28 00:00: 00 03-07 23:59 :00 No [id number] Per instruc tions DAILY Per instructio ns DAILY (route: oral) Med Classific ation: Hematolog ical Agents Bactrim DS 800 mg-160 mg tablet 2021-06 008 00:00: 00 03-19 23:59 :00 No [id number] 1 tablet 2 TIMES DAILY 1 tablet 2 TIMES DAILY (route: oral) Med Classific ation: Anti-Infe ctive Agents warfarin 2 mg tablet 2021-06 00:00: 00 03-21 23:59 :00 No [id number] Per instruc tions DAILY Per instructio ns DAILY (route: oral) Med Classific ation: Hematolog ical Agents warfarin 2 mg tablet 2021-06 00:00: 00 03-27 23:59 :00 No [id number] Per instruc tions DAILY Per instructio ns DAILY (route: oral) Med Classific ation: Hematolog ical Agents warfarin 3 mg tablet 2021-06 00:00: 00 04-04 23:59 :00 No [id number] 1 tablet DAILY 1 tablet DAILY (route: oral) Med Classific ation: Hematolog ical Agents warfarin 1 mg tablet 2021-06 00:00: 00 04-25 23:59 :00 No [id number] Per instruc tions DAILY Per instructio ns DAILY (route: oral) Med Classific ation: Hematolog ical Agents warfarin 3 mg tablet 2021-06 00:00: 00 05-01 23:59 :00 No [id number] Per instruc tions DAILY Per instructio ns DAILY (route: oral) Med Classific ation: Hematolog ical Agents warfarin 3 mg tablet 2021-06 00:00: 00 04-11 23:59 :00 No [id number] 1 tablet DAILY 1 tablet DAILY (route: oral) Med Classific ation: Hematolog ical Agents warfarin 2 mg tablet 2021-06 00:00: 00 05-08 23:59 :00 No [id number] Per instruc tions DAILY Per instructio ns DAILY (route: oral) Med Classific ation: Hematolog ical Agents warfarin 2 mg tablet 2021-06 00:00: 00 05-22 23:59 :00 No [id number] Per instruc tions DAILY Per instructio ns DAILY (route: oral) Med Classific ation: Hematolog ical Agents Immunizations Ordered Immunization Name Filled Immunization Name Date Status Comments Refusal Reason COVID-19, COVID-19 2022-01-29 00:00:00 Vital Signs Vital Name Observation Time Observation Value Commen ts Temperature 2022-05-09 15:31:00.000 97.3 [degF] Temperature 2022-05-06 20:56:00.000 98 [degF] Temperature 2022-05-06 20:30:00.000 97.6 [degF] Temperature 2022-05-05 18:28:00.000 98.6 [degF] Temperature 2022-05-02 19:19:00.000 98.6 [degF] Temperature 2022-04-28 12:11:00.000 98.2 [degF] Temperature 2022-04-25 15:20:00.000 97 [degF] Temperature 2022-04-21 13:52:00.000 97.1 [degF] Temperature 2022-04-18 08:45:00.000 97.2 [degF] Temperature 2022-04-14 18:15:00.000 98.3 [degF] Temperature 2022-04-12 10:39:00.000 97.1 [degF] Temperature 2022-04-11 19:09:00.000 98.6 [degF] Temperature 2022-04-07 19:02:00.000 97.5 [degF] Temperature 2022-04-04 09:56:00.000 98 [degF] Temperature 2022-03-31 13:54:00.000 97 [degF] Pulse 2022-05-09 15:31:00.000 68 /min Pulse 2022-05-06 20:56:00.000 76 /min Pulse 2022-05-06 20:30:00.000 82 /min Pulse 2022-05-05 18:28:00.000 80 /min Pulse 2022-05-02 19:19:00.000 72 /min Pulse 2022-04-28 12:11:00.000 61 /min Pulse 2022-04-25 15:20:00.000 70 /min Pulse 2022-04-21 13:52:00.000 61 /min Pulse 2022-04-18 08:45:00.000 62 /min Pulse 2022-04-14 18:16:00.000 60 /min Pulse 2022-04-12 10:39:00.000 62 /min Pulse 2022-04-11 19:09:00.000 80 /min Pulse 2022-04-07 19:02:00.000 80 /min Pulse 2022-04-04 09:56:00.000 70 /min Pulse 2022-03-31 13:54:00.000 70 /min O2 Saturation (%) 2022-04-28 12:11:00.000 98 % O2 Saturation (%) 2022-04-21 13:52:00.000 96 % O2 Saturation (%) 2022-04-18 08:45:00.000 96 % O2 Saturation (%) 2022-04-12 10:39:00.000 96 % O2 Saturation (%) 2022-03-31 13:54:00.000 97 % Respirations 2022-05-09 15:31:00.000 18 /min Respirations 2022-05-06 20:56:00.000 18 /min Respirations 2022-05-06 20:30:00.000 18 /min Respirations 2022-05-05 18:28:00.000 18 /min Respirations 2022-05-02 19:19:00.000 18 /min Respirations 2022-04-28 12:11:00.000 18 /min Respirations 2022-04-25 15:20:00.000 18 /min Respirations 2022-04-21 13:52:00.000 18 /min Respirations 2022-04-18 08:45:00.000 18 /min Respirations 2022-04-14 18:15:00.000 18 /min Respirations 2022-04-12 10:39:00.000 18 /min Respirations 2022-04-11 19:09:00.000 20 /min Respirations 2022-04-07 19:02:00.000 18 /min Respirations 2022-04-04 09:56:00.000 18 /min Respirations 2022-03-31 13:54:00.000 18 /min Systolic Blood Pressure 2022-05-09 15:31:00.000 128 mm [Hg] Systolic Blood Pressure 2022-05-06 20:56:00.000 120 mm [Hg] Systolic Blood Pressure 2022-05-06 20:30:00.000 140 mm [Hg] Systolic Blood Pressure 2022-05-05 18:28:00.000 140 mm [Hg] Systolic Blood Pressure 2022-05-02 19:19:00.000 120 mm [Hg] Systolic Blood Pressure 2022-04-28 12:11:00.000 128 mm [Hg] Systolic Blood Pressure 2022-04-25 15:20:00.000 126 mm [Hg] Systolic Blood Pressure 2022-04-21 13:52:00.000 124 mm [Hg] Systolic Blood Pressure 2022-04-18 08:45:00.000 118 mm [Hg] Systolic Blood Pressure 2022-04-14 18:15:00.000 122 mm [Hg] Systolic Blood Pressure 2022-04-12 10:39:00.000 122 mm [Hg] Systolic Blood Pressure 2022-04-11 19:09:00.000 122 mm [Hg] Systolic Blood Pressure 2022-04-07 19:02:00.000 122 mm [Hg] Systolic Blood Pressure 2022-04-04 09:56:00.000 122 mm [Hg] Systolic Blood Pressure 2022-03-31 13:54:00.000 126 mm [Hg] Diastolic Blood Pressure 2022-05-09 15:31:00.000 78 mm [Hg] Diastolic Blood Pressure 2022-05-06 20:56:00.000 60 mm [Hg] Diastolic Blood Pressure 2022-05-06 20:30:00.000 78 mm [Hg] Diastolic Blood Pressure 2022-05-05 18:28:00.000 70 mm [Hg] Diastolic Blood Pressure 2022-05-02 19:19:00.000 78 mm [Hg] Diastolic Blood Pressure 2022-04-28 12:11:00.000 82 mm [Hg] Diastolic Blood Pressure 2022-04-25 15:20:00.000 64 mm [Hg] Diastolic Blood Pressure 2022-04-21 13:52:00.000 66 mm [Hg] Diastolic Blood Pressure 2022-04-18 08:45:00.000 68 mm [Hg] Diastolic Blood Pressure 2022-04-14 18:15:00.000 60 mm [Hg] Diastolic Blood Pressure 2022-04-12 10:39:00.000 64 mm [Hg] Diastolic Blood Pressure 2022-04-11 19:09:00.000 64 mm [Hg] Diastolic Blood Pressure 2022-04-07 19:02:00.000 62 mm [Hg] Diastolic Blood Pressure 2022-04-04 09:56:00.000 64 mm [Hg] Diastolic Blood Pressure 2022-03-31 13:54:00.000 64 mm [Hg] Plan of Treatment Planned Activity Planned Date Details Comments Future Scheduled Test SKILLED NU RSE TO EVALUATE PATIENT, IDENTIFY PRIMARY AND CO-MORBID CONDITIONS CODED PER CODING GUIDELINES, AND DEVELOP PATIENT SPECIFIC PLAN OF CARE THAT INCLUDES PATIENT GOAL FOR HOME HEALTH. CLINICAL SUMMARY (RECERT) THE PATIENT IS RECEIVING HOMECARE DUE TO STAGE 2 BUTTOCKS NEW OR CHANGED MEDICATIONS: COUMADIN DOSING PATIENT LIVING SITUATION/CAREGIVER STATUS: HALFWAY STAFF RECENT FALLS: N SUMMARIZE SKILL WOUND CARE SUPRAPUBIC CATH CARE THERAPEUTIC DRUG MONITORING ADDITIONAL DISCIPLINES NEEDED OR DECLINED ORDERED SERVICES: ROOFER METAL [code = SKILLED NURSE TO EVALUATE PATIENT, IDENTIFY PRIMARY AND CO-MORBID CONDITIONS CODED PER CODING GUIDELINES, AND DEVELOP PATIENT SPECIFIC PLAN OF CARE THAT INCLUDES PATIENT GOAL FOR HOME HEALTH. CLINICAL SUMMARY (RECERT) THE PATIENT IS RECEIVING HOMECARE DUE TO STAGE 2 BUTTOCKS NEW OR CHANGED MEDICATIONS: COUMADIN DOSING PATIENT LIVING SITUATION/CAREGIVER STATUS: HALFWAY STAFF RECENT FALLS: N SUMMARIZE SKILL WOUND CARE SUPRAPUBIC CATH CARE THERAPEUTIC DRUG MONITORING ADDITIONAL DISCIPLINES NEEDED OR DECLINED ORDERED SERVICES: ROOFER METAL] Future Scheduled Test SKILLED NU RSE TO REVIEW PATIENT MEDICATIONS. INSTRUCT PATIENT/CAREGIVER ON MONITORING OF EFFECTIVENESS, ADVERSE DRUG REACTIONS, SIDE EFFECTS OF ALL MEDICATIONS (PRESCRIPTION/-OTC), AND HOW AND WHEN TO REPORT PROBLEMS. [code = SKILLED NURSE TO REVIEW PATIENT MEDICATIONS. INSTRUCT PATIENT/CAREGIVER ON MONITORING OF EFFECTIVENESS, ADVERSE DRUG REACTIONS, SIDE EFFECTS OF ALL MEDICATIONS (PRESCRIPTION/-OTC), AND HOW AND WHEN TO REPORT PROBLEMS.] Future Scheduled Test SKILLED NU RSE TO PERFORM HOME SAFETY AND FALL ASSESSMENT AND PROVIDE INSTRUCTION TO IMPLEMENT HOME SAFETY AND FALL PREVENTION STRATEGIES. [code = SKILLED NURSE TO PERFORM HOME SAFETY AND FALL ASSESSMENT AND PROVIDE INSTRUCTION TO IMPLEMENT HOME SAFETY AND FALL PREVENTION STRATEGIES.] Future Scheduled Test SKILLED NU RSE MAY OBTAIN U/A AND CS PRN IF INDICATED FOR SIGNS AND SYMPTOMS OF UTI INCLUDING URINARY URGENCY/FREQUENCY, DYSURIA, FOUL ODOR, HEMATURIA, AND/OR FEVER. [code = SKILLED NURSE MAY OBTAIN U/A AND CS PRN IF INDICATED FOR SIGNS AND SYMPTOMS OF UTI INCLUDING URINARY URGENCY/FREQUENCY, DYSURIA, FOUL ODOR, HEMATURIA, AND/OR FEVER.] Future Scheduled Test PATIENT LOUISE S A RISK OF REHOSPITALIZATION. SKILLED NURSE TO ESTABLISH SUPPORT MEASURES TO MINIMIZE RISK OF REHOSPITALIZATION, AND INSTRUCT PATIENT/CAREGIVER ON METHODS TO REDUCE AVOIDABLE HOSPITALIZATION. [code = PATIENT HAS A RISK OF REHOSPITALIZATION. SKILLED NURSE TO ESTABLISH SUPPORT MEASURES TO MINIMIZE RISK OF REHOSPITALIZATION, AND INSTRUCT PATIENT/CAREGIVER ON METHODS TO REDUCE AVOIDABLE HOSPITALIZATION.] Future Scheduled Test SKILLED NU RSE TO PROVIDE INSTRUCTION TO PATIENT/CAREGIVER RELATED TO DISCHARGE PLANNING. [code = SKILLED NURSE TO PROVIDE INSTRUCTION TO PATIENT/CAREGIVER RELATED TO DISCHARGE PLANNING.] Future Scheduled Test SKILLED NU RSE FOR OBSERVATION AND ASSESSMENT OF PATIENTS PAIN LEVEL AND EFFECTIVENESS OF PAIN MANAGEMENT REGIMEN. SKILLED NURSE TO INSTRUCT PATIENT/CAREGIVER REGARDING PHARMACOLOGIC AND NON-PHARMACOLOGIC PAIN CONTROL MEASURES. SKILLED NURSE TO REPORT TO PHYSICIAN IF PAIN IS UNCONTROLLED WITH CURRENT PAIN MANAGEMENT REGIMEN. [code = SKILLED NURSE FOR OBSERVATION AND ASSESSMENT OF PATIENTS PAIN LEVEL AND EFFECTIVENESS OF PAIN MANAGEMENT REGIMEN. SKILLED NURSE TO INSTRUCT PATIENT/CAREGIVER REGARDING PHARMACOLOGIC AND NON-PHARMACOLOGIC PAIN CONTROL MEASURES. SKILLED NURSE TO REPORT TO PHYSICIAN IF PAIN IS UNCONTROLLED WITH CURRENT PAIN MANAGEMENT REGIMEN.] Future Scheduled Test SKILLED NU RSE TO INSTRUCT PATIENT/CAREGIVER AND PERFORM CARE AND MANAGEMENT OF INDWELLING URINARY CATHETER. SUPRAPUBIC CATHETER INSERTION WITH 18 FR CATHETER WITH 10 ML BALLOON, CHANGE Q 3WEEKS (+/- 1-3 DAYS, NEXT DUE 04/21/22) AND PRN FOR LEAKING OR MALFUNCTIONING CATHETER. IRRIGATE URINARY CATHETER WITH 30-60CC NORMAL SALINE PRN BLOCKAGE/LEAKAGE, HEAVY SEDIMENT. 1 - 3 PRN RESIDENTIAL VISITS FOR CATHETER CHANGE(S) AND/OR TROUBLESHOOTING. [code = SKILLED NURSE TO INSTRUCT PATIENT/CAREGIVER AND PERFORM CARE AND MANAGEMENT OF INDWELLING URINARY CATHETER. SUPRAPUBIC CATHETER INSERTION WITH 18 FR CATHETER WITH 10 ML BALLOON, CHANGE Q 3WEEKS (+/- 1-3 DAYS, NEXT DUE 04/21/22) AND PRN FOR LEAKING OR MALFUNCTIONING CATHETER. IRRIGATE URINARY CATHETER WITH 30-60CC NORMAL SALINE PRN BLOCKAGE/LEAKAGE, HEAVY SEDIMENT. 1 - 3 PRN RESIDENTIAL VISITS FOR CATHETER CHANGE(S) AND/OR TROUBLESHOOTING.] Future Scheduled Test SKILLED NU RSE FOR O/A, TEACHING AND MANAGEMENT OF NEUROMUSCULAR DYSFUNCTION OF BLADDER FOR EARLY IDENTIFICATION OF EXACERBATION OF DISEASE PROCESS [code = SKILLED NURSE FOR O/A, TEACHING AND MANAGEMENT OF NEUROMUSCULAR DYSFUNCTION OF BLADDER FOR EARLY IDENTIFICATION OF EXACERBATION OF DISEASE PROCESS] Future Scheduled Test MEDICAL SO CIAL WORKER TO EVALUATE PATIENT [code = FELT PULLER TO EVALUATE PATIENT ] Future Scheduled Test NEED FOR S KILLED TEACHING AND INTERVENTION RELATED TO STAGE II BUTTOCK. SKILLED NURSE OR TRAINED PATIENT/CAREGIVER TO PERFORM WOUND CARE USING ASEPTIC TECHNIQUE, CLEANSE/IRRIGATE WITH NS, PAT DRY WITH GAUZE, APPLY THERAHONEY TO WOUND BED, COVER WITH DRY CLEAN DRESSING, WOUND CARE TO BE PERFORMED EVERY DAY AND NEEDED IF SOILED OR DISLODGED. DISCONTINUE WOUND CARE/SUPPLIES ONCE WOUND IS HEALED. SKIN PREP BILATERAL HEEL STAGE II BID AND LEAVE OPEN TO AIR [code = NEED FOR SKILLED TEACHING AND INTERVENTION RELATED TO STAGE II BUTTOCK. SKILLED NURSE OR TRAINED PATIENT/CAREGIVER TO PERFORM WOUND CARE USING ASEPTIC TECHNIQUE, CLEANSE/IRRIGATE WITH NS, PAT DRY WITH GAUZE, APPLY THERAHONEY TO WOUND BED, COVER WITH DRY CLEAN DRESSING, WOUND CARE TO BE PERFORMED EVERY DAY AND NEEDED IF SOILED OR DISLODGED. DISCONTINUE WOUND CARE/SUPPLIES ONCE WOUND IS HEALED. SKIN PREP BILATERAL HEEL STAGE II BID AND LEAVE OPEN TO AIR] Future Scheduled Test SKILLED NU RSE FOR O/A AND TEACHING OF ENDOCRINE SYSTEM TO IDENTIFY CHANGES ASSOCIATED WITH EXACERBATION OF HYPOTHYROIDISM FOR EARLY INTERVENTION OF COMPLICATIONS. [code = SKILLED NURSE FOR O/A AND TEACHING OF ENDOCRINE SYSTEM TO IDENTIFY CHANGES ASSOCIATED WITH EXACERBATION OF HYPOTHYROIDISM FOR EARLY INTERVENTION OF COMPLICATIONS.] Future Scheduled Test SKILLED NU RSE FOR O/A TO IDENTIFY CHANGES ASSOCIATED WITH QUADRIPLEGIA AND PROVIDE INSTRUCTION RELATED TO SAFETY MEASURES TO PREVENT INJURY SECONDARY TO IMPAIRED NEUROLOGICAL STATUS. SKILLED NURSE TO REPORT SIGNIFICANT CHANGES OF NEUROLOGIC STATUS TO PHYSICIAN FOR EARLY INTERVENTION. [code = SKILLED NURSE FOR O/A TO IDENTIFY CHANGES ASSOCIATED WITH QUADRIPLEGIA AND PROVIDE INSTRUCTION RELATED TO SAFETY MEASURES TO PREVENT INJURY SECONDARY TO IMPAIRED NEUROLOGICAL STATUS. SKILLED NURSE TO REPORT SIGNIFICANT CHANGES OF NEUROLOGIC STATUS TO PHYSICIAN FOR EARLY INTERVENTION.] Future Scheduled Test SKILLED NU RSE FOR MONITORING, O/A AND TEACHING RELATED TO MANAGEMENT OF ANTICOAGULATION THERAPY INCLUDING DIET, MEDICATION SIDE EFFECTS, SAFETY MEASURES TO PREVENT INJURY, AND S/S TO REPORT. PT/INR TO BE OBTAINED ORDERED AND RESULTS REPORTED TO PHYSICIAN. NEXT DUE 04/04/22 [code = SKILLED NURSE FOR MONITORING, O/A AND TEACHING RELATED TO MANAGEMENT OF ANTICOAGULATION THERAPY INCLUDING DIET, MEDICATION SIDE EFFECTS, SAFETY MEASURES TO PREVENT INJURY, AND S/S TO REPORT. PT/INR TO BE OBTAINED ORDERED AND RESULTS REPORTED TO PHYSICIAN. NEXT DUE 04/04/22] Future Scheduled Test SKILLED NU RSE TO ASSESS PATIENT'S SKIN INTEGRITY AND INSTRUCT PATIENT/CAREGIVER ON MEASURES TO PREVENT PRESSURE ULCERS [code = SKILLED NURSE TO ASSESS PATIENT'S SKIN INTEGRITY AND INSTRUCT PATIENT/CAREGIVER ON MEASURES TO PREVENT PRESSURE ULCERS] Future Scheduled Test INSTRUCTED PATIENT/CAREGIVER ON SIGNS AND SYMPTOMS, RISK FACTORS, COMPLICATIONS, AND MANAGEMENT OF ATRIAL FIBRILLATION. [code = INSTRUCTED PATIENT/CAREGIVER ON SIGNS AND SYMPTOMS, RISK FACTORS, COMPLICATIONS, AND MANAGEMENT OF ATRIAL FIBRILLATION.] Future Scheduled Test SKILLED NU RSE TO PROVIDE TEACHING ON SIGNS AND SYMPTOMS AND MANAGEMENT OF HYPERTENSION. [code = SKILLED NURSE TO PROVIDE TEACHING ON SIGNS AND SYMPTOMS AND MANAGEMENT OF HYPERTENSION.] Future Scheduled Test SKILLED NU RSE FOR O/A, TEACHING AND SELF-MANAGEMENT RELATED TO HEART FAILURE. INSTRUCT PATIENT/CAREGIVER ON SIGNS AND SYMPTOMS OF EXACERBATION TO REPORT. WEIGHT TO BE OBTAINED DAILY AND WEIGHT GAIN OF 2 # OVERNIGHT OR 5 # IN 1 WEEK TO BE REPORTED TO PHYSICIAN. IF UNABLE TO WEIGH PT, MEASURE BILATERAL ANKLES TO MONITOR, NOTIFY MD OF INCREASED MEASUREMENT [code = SKILLED NURSE FOR O/A, TEACHING AND SELF-MANAGEMENT RELATED TO HEART FAILURE. INSTRUCT PATIENT/CAREGIVER ON SIGNS AND SYMPTOMS OF EXACERBATION TO REPORT. WEIGHT TO BE OBTAINED DAILY AND WEIGHT GAIN OF 2 # OVERNIGHT OR 5 # IN 1 WEEK TO BE REPORTED TO PHYSICIAN. IF UNABLE TO WEIGH PT, MEASURE BILATERAL ANKLES TO MONITOR, NOTIFY MD OF INCREASED MEASUREMENT] Future Scheduled Test MEDICAL SO CIAL WORKER EVALUATION PERFORMED. NO ADDITIONAL VISITS REQUIRED. [code = FELT PULLER EVALUATION PERFORMED. NO ADDITIONAL VISITS REQUIRED.] Future Scheduled Test SKILLED NU RSE FOR O/A, TEACHING, AND MANAGEMENT OF PACEMAKER [code = SKILLED NURSE FOR O/A, TEACHING, AND MANAGEMENT OF PACEMAKER] Goal 2022-05-13 Patient Goal - W OUNDS TO HEAL, LESS FREQUENT UTI WITH SUPRAPUBIC CATHETER CHANGED MONTHLY Goal 2022-03-28 Patient Goal - W OUNDS TO HEAL, LESS FREQUENT UTI WITH SUPRAPUBIC CATHETER CHANGED MONTHLY Goal Provider Goal - A PLAN OF CARE WILL BE ESTABLISHED THAT MEETS PATIENT'S RESIDENTIAL NEEDS AND INCLUDES PATIENT GOAL FOR HOME HEALTH. Goal Provider Goal - PATIENT/CAREGIVER WILL VERBALIZE UNDERSTANDING OF EDUCATION PROVIDED ON MEDICATIONS BY THE END OF THE CERTIFICATION PERIOD. Goal Provider Goal - PATIENT/CAREGIVER WILL VERBALIZE/DEMONSTRATE EFFECTIVE HOME SAFETY AND FALL PREVENTION STRATEGIES THROUGHOUT CERTIFICATION PERIOD. Goal Provider Goal - URINE SPECIMEN OBTAINED THIS VISIT FOR U/A AND CS THROUGHOUT THE CERTIFICATION PERIOD. RESULTS TO BE REPORTED TO PHYSICIAN. Goal Provider Goal - PATIENT WILL HAVE SUPPORT MEASURES ESTABLISHED TO PREVENT REHOSPITALIZATION AND PATIENT/CAREGIVER WILL VERBALIZE/DEMONSTRATE METHODS TO REDUCE AVOIDABLE HOSPITALIZATION BY END OF CERTIFICATION Goal Provider Goal - PATIENT/CAREGIVER WILL VERBALIZE UNDERSTANDING OF DISCHARGE PLANNING INSTRUCTIONS BY DATE OF DISCHARGE. Goal Provider Goal - PATIENT/CAREGIVER WILL DEMONSTRATE UNDERSTANDING OF PHARMACOLOGIC AND NONPHARMACOLOGIC PAIN CONTROL MEASURES AND PATIENT WILL HAVE IMPROVEMENT IN PAIN INTERFERING WITH ACTIVITY EVIDENCED BY PAIN CONTROLLED AT LEVEL OF 7 OR LESS BY END OF CERTIFICATION PERIOD. Goal Provider Goal - PATIENT WILL VERBALIZE TOLERANCE OF CATHETER CHANGE AND KNOWLEDGE OF REQUIRED CARE TO MANAGE INDWELLING URINARY CATHETER WITHOUT COMPLICATIONS BY THE END OF THE CERTIFICATION PERIOD. Goal Provider Goal - PATIENT/CAREGIVER WILL VERBALIZE UNDERSTANDING OF GENITOURINARY DISEASE PROCESS, AND EXACERBATIONS OF GENITOURINARY DISEASE WILL BE PROMPTLY IDENTIFIED FOR EARLY INTERVENTION THROUGHOUT THE CERTIFICATION PERIOD. Goal Provider Goal - FELT PULLER TO COMPLETE EVALUATION TO ADDRESS THE PATIENTS SOCIAL AND EMOTIONAL FACTORS AND/OR WRITTEN PLAN OF TREATMENT ESTABLISHED FOR THE PHYSICIAN'S SIGNATURE. Goal Provider Goal - WOUND CARE WILL BE COMPLETED AND PATIENT WILL HAVE IMPROVED WOUND STATUS EVIDENCED BY NO SIGNS AND SYMPTOMS OF INFECTION, DECREASED WOUND SIZE, AND/OR NO COMPLICATIONS BY THE END OF THE CERTIFICATION PERIOD. Goal Provider Goal - PATIENT/CAREGIVER WILL VERBALIZE SIGNS AND SYMPTOMS OF EXACERBATION TO REPORT TO NURSE/PHYSICIAN. CHANGES IN ENDOCRINE SYSTEM WILL BE IDENTIFIED AND REPORTED TO PHYSICIAN FOR PROMPT INTERVENTION THROUGHOUT THE CERTIFICATION PERIOD. Goal Provider Goal - CHANGES IN NEUROLOGIC STATUS WILL BE IDENTIFIED AND REPORTED TO THE PHYSICIAN FOR PROMPT INTERVENTION OF ASSOCIATED RISK. PATIENT/CAREGIVER WILL VERBALIZE/DEMONSTRATE APPROPRIATE SAFETY MEASURES TO PREVENT INJURY BY THE END OF THE CERTIFICATION PERIOD. Goal Provider Goal - PATIENT/CAREGIVER WILL VERBALIZE/DEMONSTRATE UNDERSTANDING OF MANAGEMENT OF ANTICOAGULATION THERAPY PT/INR OBTAINED AND REPORTED TO PHYSICIAN. Goal Provider Goal - PATIENT/CAREGIVER WILL VERBALIZE UNDERSTANDING OF PRESSURE ULCER PREVENTION BY END OF CERTIFICATION Goal Provider Goal - PATIENT/CAREGIVER WILL VERBALIZE UNDERSTANDING OF SIGNS AND SYMPTOMS, COMPLICATIONS, AND MANAGEMENT OF ATRIAL FIBRILLATION Goal Provider Goal - PATIENT/CAREGIVER WILL VERBALIZE SIGNS AND SYMPTOMS OF HYPERTENSION AND WILL BE ABLE TO DEMONSTRATE ABILITY TO MANAGE EXACERBATION BY END OF EPISODE Goal Provider Goal - PATIENT/CAREGIVER WILL VERBALIZE/DEMONSTRATE TOOLS ASSOCIATED HEART FAILURE AND/OR KNOWLEDGE AND MANAGEMENT OF HEART FAILURE DISEASE PROCESS BY END OF CERTIFICATION Goal Provider Goal - NONE Goal Provider Goal - PATIENT/CAREGIVER WILL VERBALIZE/DEMONSTRATE MANAGEMENT OF CARDIAC DISEASE PROCESS AND EXACERBATIONS WILL BE IDENTIFIED AND PROMPTLY REPORTED THROUGHOUT THE CERTIFICATION PERIOD. Reason for Visit REMAINS INPATIENT AT TIME OF DISCHARGE Encounters Start Date/Time End Date/Time Encounter Type Admission Type Attending [facility] Care Department Encounter ID Discharge Date Discharge Status Discharge Condition Discharge Reason Percent Goals Met 2022-01-29 00:00:00 2022-05-13 00:00:00 Outpatient RECERTIFIC ATION [facility] [id number] [id number] 00:00:00 DISCHARGED /TRANSFERR ED TO A SHORT-TERM [facility] REMAINS INPATIENT AT TIME OF DISCHARGE ADMITTED TO HOSPITAL 65.22
[2024-05-29] MEDS: cefTRIAXone sodium 1 GM VIAL IVPUSH (12:43)
--- NOTE | 2024-05-29 12:57 | ECG_ITS ---
Test Reason : sob Blood Pressure : / mmHG Vent. Rate : 063 BPM Atrial Rate : 340 BPM P-R Int : 000 ms QRS Dur : 132 ms QT Int : 488 ms P-R-T Axes : 000 -22 056 degrees QTc Int : 499 ms Ventricular-paced rhythm Abnormal ECG When compared with ECG of 29-MAY-2024 12:56, Vent. rate has increased BY 2 BPM Referred By: Rosalva Brice Electronically Signed By:Edgar Jaime
--- NOTE | 2024-05-29 13:00 | PC.NURSE ---
patient placed on 4l oxymask by RT
[2024-05-29 13:15] LABS: Lactic Acid 0.9 mmol/L (0.5-2.0)
[2024-05-29] MEDS: Azithromycin 500 MG in 0.9 % Sodium Chloride 250 ML 125 MG IV (13:21)
[2024-05-29 14:03] LABS: Influenza A PCR NEGATIVE (Negative); Influenza B PCR NEGATIVE (Negative); Resp Syncy Virus RNA Qual PCR NEGATIVE (Negative); SARS COV2 PCR INHOUSE NEGATIVE (Negative)
[2024-05-29] MEDS: SODIUM CHLORIDE 3927 ML IV (14:33)
[2024-05-29 14:46] LABS: Appearance Urine Cloudy; Color Urine Yellow; Glucose Urine UA Negative (Negative); Leukocyte Esterase Urine Moderate (2+) (Negative); Nitrite Urine Positive (Negative); Specific Gravity - Urine >= 1.030 (1.005-1.025); UMIC TRIGGER UACC YES; Urine Blood Large (3+) (Negative); Urine Ketones 15 mg/dL (Negative); Urine Protein Negative (Neg-Trace)
--- NOTE | 2024-05-29 14:48 | PC.NURSE ---
patient presented to ED from senior living with increased sob and productive cough x24 hr. patient states he has no pain or discomfort. patient has suprapubic catheter in place and colostomy. suprapubic draining cloudy yellow urine. patient is alert and oriented x3, bed bound at baseline with right sided deficit. patient IV access obtained in the left wrist #20, labs drawn and sent. patient VSS, resp even, slightly labored, patient has coarse crackles in the left upper lobe. patient has productive cough, unable to cough up sputum. patient requiring 4-5 L NC to maintain o2 sat above 90s. RT and ED provider called to bedside
--- NOTE | 2024-05-29 14:51 | P.HPHOSP_ITS ---
History of Present Illness Date of Service: 05/29/24 Attending physician on admission: Marisabel Garcia Chief Complaint: SOB, cough Pt is a 68-year-old male with a PMH significant for?paroxysmal AFib on Eliquis, paraplegia secondary to spinal cord injury, neurogenic bladder with chronic suprapubic catheter in place, recurrent UTIs, colostomy, pacemaker in place, hypothyroidism, chronic pain syndrome, and sacral decubitus ulcer who presents to the ED from [facility] with increased SOB, difficulty breathing, and non- productive cough since yesterday. ?Has been feeling tired and run down, developed a persistent cough but unable to cough anything up. No fever or chills. Denies nausea or vomiting, no history aspiration. Denies history of COPD asthma smoking. Not on home O2. Denies chest pain/pressure, palpitations. No abdominal pain. Has noticed increased swelling in lower legs over the past few days. Patient reports follows up with wound care every 1-2 weeks for sacral decubitus ulcers. In the ED pt was hypoxic as low as 81% on RA and was soft BP as low as 108/51. Labs were grossly unremarkable and around baseline patient. No leukocytosis. Stable normocytic anemia of 10.6/33.4, around baseline. No significant electrolyte abnormalities. Renal function baseline. Lactic acid WNL. Hepatic function WNL. UA positive for UTI. CXR showed limited but with bibasilar patchy and hazy densities suggestive of pleural fluid, atelectasis, and/or infiltrate. EKG demonstrated ventricular paced rhythm without evidence of significant ST elevations or depressions. Pt was treated with Mag sulfate, Solu- Medrol, DuoNebs, IVF, ceftriaxone, and azithromycin. Pt will be admitted to the hospital for treatment and further evaluation of acute hypoxic respiratory failure in the setting of community acquired pneumonia. Review of Systems 2 Review of Systems: Negative except for that which is stated in the [facility] Medical History Suprapubic catheter dysfunction Neurogenic bladder Quadriplegia, C5-C7 incomplete Atrial fibrillation Chronic restrictive lung disease Pneumonia Urine retention Irreducible left inguinal hernia Autonomic dysfunction Hypothyroidism Hernia Spasms of the hands or feet Spinal cord injury Family History Sister Diabetes mellitus Surgical History Chronic suprapubic catheter S/P tendon repair H/O hemorrhoidectomy S/P IVC filter H/O hernia repair H/O thyroidectomy Social History Household Members: Unknown / Unable to assess Household Members Other:: [facility] Housing: Unknown / Unable to assess Housing Other:: [facility] [place] Do you presently have visiting nurse or other home services: No Alcohol intake: former Comment: low extremity paralysis Patient Tobacco Use Status: Tobacco use Unknown Advance Directives: Yes Advance Directives on File: Yes Advance Directives Date on File: 01/09/23 Do you have a plan to hurt others: No Plan service: No Meds Allergies Allergy/AdvReac Type Severity Reaction Status Date / Time dicloxacillin [From DYNAPEN] Allergy Unknown Unknown Verified 05/29/24 11:55 ofloxacin [From FLOXIN] AdvReac Intermediate Abdominal Verified 05/29/24 11:55 Pain penicillin V AdvReac Intermediate Abdominal Verified 05/29/24 11:55 Pain Active Medications: Current Medications Sodium Chloride (Ns) 3,927 mls @ 3,927 mls/hr 30 ml/kg infuse over 1 hr (3927 ml) IV .Q1H STA Stop: 05/29/24 15:22 Last Admin: 05/29/24 14:33 Dose: 3,927 mls/hr Home Medications ?Medication ?Instructions ?Recorded ?Confirmed ?Last Taken ?Type ascorbic acid (vitamin C) 500 mg 500 mg PO DAILY 03/23/20 05/29/24 03/23/20 History tablet calcitriol 0.25 mcg capsule 0.25 mcg PO DAILY 03/23/20 05/29/24 03/23/20 History docusate sodium 100 mg capsule 200 mg PO BEDTIME 03/23/20 05/29/24 03/23/20 History (Colace) cholecalciferol (vitamin D3) 1,250 1,250 mcg PO QMONTH 01/09/23 05/29/24 11/23/23 History mcg (50,000 unit) tablet dicyclomine 10 mg capsule 10 mg PO QID 01/09/23 05/29/24 Unknown History furosemide 20 mg tablet 20 mg PO DAILY 01/09/23 05/29/24 Unknown History gabapentin 100 mg capsule 100 mg PO BID@0800,1400 01/09/23 05/29/24 Unknown History gabapentin 600 mg tablet 600 mg PO BEDTIME 01/09/23 05/29/24 Unknown History melatonin 10 mg tablet 10 mg PO BEDTIME Sleep 01/09/23 05/29/24 Unknown History midodrine 10 mg tablet 10 mg PO TIDAC 01/09/23 05/29/24 Unknown History acetaminophen 325 mg tablet 650 mg PO Q6H PRN 11/26/23 05/29/24 Unknown History headache/fever/bodyaches nystatin 100,000 unit/gram topical 1 appl topical BID Rash 11/26/23 05/29/24 Unknown History powder (Nyamyc) trazodone 150 mg tablet 75 mg PO BEDTIME 11/26/23 05/29/24 Unknown History ferrous sulfate 325 mg (65 mg 325 mg PO DAILY 12/04/23 05/29/24 Unknown History iron) tablet (FeroSul) miconazole nitrate 2 % topical 1 appl topical BID PRN fungal rash 12/04/23 05/29/24 Unknown History cream sennosides 8.6 mg tablet (senna) 8.6 mg PO DAILY PRN Constipation 12/04/23 05/29/24 Unknown History apixaban 5 mg tablet (Eliquis) 5 mg PO BID 04/29/24 05/29/24 Unknown History baclofen 20 mg tablet 20 mg PO TID@0700,1200,1900 05/29/24 05/29/24 Unknown History baclofen 20 mg tablet 40 mg PO BEDTIME 05/29/24 05/29/24 Unknown History levothyroxine 137 mcg tablet 137 mcg PO DAILY@0630 05/29/24 05/29/24 Unknown History bbzyhjimlene-znqlhsih-iyaa 1 tab PO DAILY 05/29/24 05/29/24 Unknown History fumarate 19 mg-folic acid 400 mcg tablet (Thera-M) nystatin 100,000 unit/gram topical 1 appl topical BID 05/29/24 05/29/24 Unknown History cream Physical Exam 2 Vital Signs and Narrative: Vital Signs: Last Vital Signs Temp 97.7 F 05/29/24 13:16 Pulse 60 05/29/24 14:33 Resp 18 05/29/24 14:33 BP 108/51 L 05/29/24 14:33 Pulse Ox 92 05/29/24 14:33 O2 Del Method Oxymask 05/29/24 14:33 O2 Flow Rate 5 05/29/24 14:33 Oxygen Flow Rate 4 05/29/24 11:52 BMI result Body Mass Index 35.1 General: AOx3, no acute distress Resp: Diffuse expiratory rhonchi bilaterally CVS: S1, S2, RRR GI: +BS, NT, no distention Skin: Warm, dry Neuro: Cranial nerves II-XII grossly intact bilaterally. Motor grossly intact bilaterally of upper extremities. Pt with chronic paraplegia. Extremities: 3+ bilateral pitting edema Psych: Appropriate affect Results Labs 05/29/24 12:05 05/29/24 12:05 Labs: Laboratory Results - last 24 hr 05/29/24 05/29/24 05/29/24 12:05 12:41 14:37 MCV 87.7 MCH 27.8 MCHC 31.7 RDW 16.4 H Plt Count 261 MPV 8.9 L Immature Gran % (Auto) 0.5 H Neut % (Auto) 71.3 Lymph % (Auto) 18.0 L [place] % (Auto) 7.2 Eos % (Auto) 2.6 Baso % (Auto) 0.4 Lymph # (Auto) 1.4 [place] # (Auto) 0.6 Eos # (Auto) 0.2 Baso # (Auto) 0.0 Abs Immat Gran (auto) 0.04 H Absolute Neuts (auto) 5.5 Absolute Nucleated RBC 0.000 Nucleated RBC % (auto) 0.0 PT 22.5 H INR 1.9 H Anion Gap 14 Estim Creat Clear Calc 170.7 Estimated GFR > 60 Random Glucose 96 Lactic Acid 0.9 Calcium 8.5 D Magnesium 1.8 Total Bilirubin 0.5 AST 21 ALT 12 Alkaline Phosphatase 70 Total Protein 7.5 Albumin 3.7 Lipase 12 Urine Color Yellow Urine Appearance Cloudy Urine pH 6.0 Ur Specific [place] >= 1.030 H Urine Protein Negative Urine Glucose (UA) Negative Urine Ketones 15 Urine Blood Large (3+) H Urine Nitrite Positive H Ur Leukocyte Esterase Moderate (2+) H Influenza Type A (PCR) NEGATIVE Influenza Type B (PCR) NEGATIVE RSV RNA Qual (PCR) NEGATIVE SARS-CoV-2 RNA (RT-PCR) NEGATIVE Imaging Radiologist's Impressions: Impressions Chest X-Ray 05/29/24 12:40 IMPRESSION: Findings as above. Electronically signed by: Samuel Doran MD 05/29/2024 12:53 PM EST Assessment and Plan (1) UTI (urinary tract infection): Status: Acute (2) Hypoxia: Status: Acute (3) Pneumonia: Status: Acute Plan Pt is a 68-year-old male with a PMH significant for?paroxysmal AFib on Eliquis, paraplegia secondary to spinal cord injury, neurogenic bladder with chronic suprapubic catheter in place, recurrent UTIs, colostomy, pacemaker in place, hypothyroidism, chronic pain syndrome, and sacral decubitus ulcer who presents to the ED from [facility] with increased SOB, difficulty breathing, and non- productive cough since yesterday. Pt will be admitted to the hospital for treatment and further evaluation of acute hypoxic respiratory failure in the setting of community acquired pneumonia. Acute hypoxic respiratory failure in the setting of pneumonia Patient desatting as low as 81% on RA, currently 90-92% on 5L OxyMask CXR not optimal, but concerning for pleural effusion, atelectasis, andor infiltrate No sepsis: No tachycardia, tachypnea, fever, or leukocytosis; lactic acid WNL Will treat with ceftriaxone and azithromycin, started 05/29/2024 Titrate supplemental oxygen >92, wean as tolerated If no clinical improvement, consider CT of chest and/or pulmonology consult tomorrow Acute UTI Patient with chronic suprapubic catheter, history of recurrent UTIs No sepsis Treat as above with antibiotics Follow urine cultures Chronic lower leg edema 3+ pitting edema, worse than baseline No hx of CHF, last echo 12/2023 Will give Lasix 20mg x1 dose Check BNP Sacred decubitus ulcers [facility] Wound care consult Patient positioning q.2h Hypotension BP as low as 96/56 despite fluids Continue midodrine History of paraplegia with neuropathy Continue baclofen, gabapentin Paroxysmal AFib Continue Eliquis Hypothyroidism Continue levothyroxine Full Code Attending:?Dr. Garcia DVT Prophylaxis: On Eliquis Pt will require a hospitalization of at least two nights for treatment of?acute hypoxic respiratory failure in the setting of pneumonia. Patient will require administration of IV antibiotics, supplemental oxygen, and breathing treatments. Quality Stroke Does the patient have a stroke diagnosis?: No VTE Prior VTE?: No VTE Risk Level:: Medical - moderate - high VTE Device Contraindication: Treatment Not Indicated VTE Drug Contraindication: N/A - Med Ordered
[2024-05-29 14:59] LABS: Bacteria Urine 2+ (None Seen); Hyaline Casts Urine 0-2 /LPF (0-2); RBC Urine >20 /HPF (0-2); Squamous Epithelial Cell Urine 0-2 /HPF (0-2); UACC Culture Trigger YES; WBC Clumps Urine Present; WBC Urine >50 /HPF (0-5)
--- NOTE | 2024-05-29 15:18 | PHA.MEDREC ---
Pharmacy Consult ? Medication Reconciliation Pharmacy has completed the medication reconciliation. Patient came with list from his nursing home. Patient recently filled levothyroxine 137 mcg on 05/24 which seems to be an increase in his dose from 125 mcg (This was not indicated on his nursing home list)
[2024-05-29] MEDS: Furosemide 20 MG/2 ML VIAL IVPUSH (15:40)
--- NOTE | 2024-05-29 16:07 | PC.NURSE ---
patient program dir Kenna called for update on patient, staff was informed that patient will be admitted into the hospital
[2024-05-29] MEDS: Dicyclomine HCl 10 MG CAPSULE PO ×2 (17:04→21:11)
[2024-05-29] MEDS: Midodrine HCl 10 MG TABLET PO (17:04)
[2024-05-29] MEDS: Albuterol/Iprat 2.5/0.5MG 3 ML AMPUL.NEB INHALE (19:45)
[2024-05-29 20:25] LABS: Glucose, Whole Blood 136 mg/dL (60-115)
[2024-05-29] MEDS: Baclofen 20 MG TABLET PO (21:11)
[2024-05-29] MEDS: Gabapentin 600 MG TABLET PO (21:11)
[2024-05-29] MEDS: Docusate Sodium 100 MG CAPSULE 200 MG PO (21:11)
[2024-05-29] MEDS: traZODone HCL 25 MG HALFTAB 75 MG PO (21:12)
[2024-05-29] MEDS: Apixaban 5 MG TABLET PO (21:12)
[2024-05-29] MEDS: 0.9 % Sodium Chloride Flush 3 ML SYRINGE IVFLUSH (21:13)
[2024-05-29] MEDS: Baclofen 20 MG TABLET 40 MG PO (21:18)
[2024-05-29] MEDS: Furosemide 40 MG/4 ML VIAL IVPUSH (23:30)
[2024-05-30] VITALS (15 sets, daily range): BP systolic 107–136; BP diastolic 60–86; PULSE 60–71; RESP 16–22; TEMP 36.2–37; O2SAT 93–98
[2024-05-30] MEDS: Levothyroxine Sodium 25 MCG TABLET PO (06:07)
[2024-05-30] MEDS: Levothyroxine Sodium 112 MCG TABLET PO (06:07)
[2024-05-30] MEDS: Baclofen 20 MG TABLET PO ×3 (06:07→19:26)
[2024-05-30 06:16] LABS: Hematocrit 33.7 % (42.0-52.0); Hemoglobin 10.5 g/dl (14.0-18.0); Mean Corpuscular HGB Conc 31.2 g/dl (31.0-36.0); Mean Corpuscular Hemoglobin 27.9 pg (27.0-33.0); Mean Corpuscular Volume 89.4 fL (80.0-98.0); Mean Platelet Volume 9.5 fL (9.4-12.4); Platelet Count 261 X10*3/uL (160-400); Red Blood Count 3.77 X10*6/uL (4.60-5.80); White Blood Count 9.4 X10*3/uL (4.8-10.8)
[2024-05-30 06:32] LABS: Anion Gap 15 (12-20); Blood Urea Nitrogen 11 mg/dL (9-16); Calcium 7.8 mg/dL (8.4-10.2); Carbon Dioxide 29 mmol/L (22-29); Chloride 100 mmol/L (96-108); Creatinine Clr Calc Pharmacy 199.7; Estimated Glomerular Filt Rate > 60; Glucose Random 150 mg/dL (60-115); Potassium 3.7 mmol/L (3.3-5.1); Sodium 140 mmol/L (135-145)
[2024-05-30] MEDS: 0.9 % Sodium Chloride Flush 3 ML SYRINGE IVFLUSH ×3 (08:01→19:32)
[2024-05-30] MEDS: Gabapentin 100 MG CAPSULE PO ×2 (08:01→13:57)
[2024-05-30] MEDS: Dicyclomine HCl 10 MG CAPSULE PO ×4 (08:01→21:16)
[2024-05-30] MEDS: Midodrine HCl 10 MG TABLET PO ×3 (08:01→17:43)
[2024-05-30] MEDS: oxyBUTYnin chloride ER 5 MG TAB.ER.24 10 MG PO (08:02)
[2024-05-30] MEDS: Ferrous Sulfate 324 MG TABLET.DR PO (08:02)
[2024-05-30] MEDS: Furosemide 20 MG TABLET PO (08:02)
[2024-05-30] MEDS: calcitrioL 0.25 MCG CAPSULE PO (08:02)
[2024-05-30] MEDS: Multivitamin TABLET 1 TAB PO (08:02)
[2024-05-30] MEDS: Ascorbic Acid 500 MG TABLET PO (08:02)
[2024-05-30] MEDS: Apixaban 5 MG TABLET PO ×2 (08:02→21:16)
[2024-05-30] MEDS: Albuterol/Iprat 2.5/0.5MG 3 ML AMPUL.NEB INHALE ×3 (08:20→15:41)
--- NOTE | 2024-05-30 09:44 | MHC.CM.PN ---
Addendum entered by Didi Tijerina 05/30/24 12:44: Patient is active with [facility]. A referral has been sent to the agency. Original Note: IMM 05/30/24 Male DX PNA He lives in a [facility], [place]. 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 He is dependent with all aspects of care. He uses an electric WC. [facility] care has provided services in the past. He was not active prior to this admission. Spoke with Joanne @ [phone]. The point of contact for the pt is Bill [phone]. He will be coming in this morning. He will bring a copy of the HCP. DP return to [facility] via BLS.
[2024-05-30] MEDS: guaiFENesin DM 100/10/5 ML 5 ML SYRUP PO (12:04)
[2024-05-30] MEDS: guaiFENesin LA 600 MG TAB.ER.12H 1200 MG PO ×2 (12:04→21:16)
[2024-05-30] MEDS: cefTRIAXone sodium 1 GM VIAL IVPUSH (12:05)
[2024-05-30] MEDS: Azithromycin 500 MG in 0.9 % Sodium Chloride 250 ML 125 MG IV (12:17)
--- NOTE | 2024-05-30 13:30 | P.PNIM_ITS ---
Subjective Subjective Date of Service: 05/30/24 Interval History: Seen and examined this morning Follow-up for respiratory failure Patient awake, alert, able to speak in full sentences. Reports ongoing shortness of breath and inability to bring up phlegm Review of Systems Review of Systems: Yes all other systems are reviewed and are negative Constitutional Constitutional: Denies chills and Denies fever(s) Cardiovascular Cardiovascular: Denies chest pain, Denies palpitations and Reports dyspnea Respiratory Respiratory: Reports cough and Reports dyspnea Endocrine Endocrine: Denies palpitations Physical Exam 2 Vital Signs: Vital Signs: Last Vital Signs Temp 97.1 F 05/30/24 07:19 Pulse 66 05/30/24 11:52 Resp 20 05/30/24 11:52 BP 136/77 05/30/24 12:05 Pulse Ox 94 05/30/24 11:52 O2 Del Method Oxymask 05/30/24 07:19 O2 Flow Rate 10 05/30/24 07:19 Oxygen Flow Rate 4 05/29/24 11:52 BMI result Body Mass Index 35.1 Const: General: cooperative, comfortable, alert and awake Nutritional Appearance: overweight Orientation/consciousness: patient oriented x3 Resp: Other: rhonchi, diminished Effort & Inspection: normal respiratory effort, able to speak in complete sentences, no respiratory distress and no use of accessory muscles Cardio: Rate: regular rate GI: Other: colostomy in place Inspection: No distended Palpation (GI): Soft to palpation : Other: suprapubic catheter present Neuro: Other: able to move upper extremities; chronic paraplegia General: patient oriented x3 Extrem: Other: lower extremity edema b/l Objective Data Active Medications Acetaminophen (Acetaminophen 325 Mg Tablet) 650 mg PO Q6H PRN PRN Reason: Pain, Mild 1-3,fever,headache Acetylcysteine (Acetylcysteine 10 % 400 Mg/4 Ml Vial) 200 mg INHALE RBID SACHIN Albuterol Sulfate (Albuterol Sulfate (0.083%) 2.5 Mg/3 Ml Vial.Neb) 2.5 mg INHALE RBID SACHIN Albuterol/Ipratropium (Albuterol/Iprat 2.5/0.5mg 3 Ml Ampul.Neb) 3 ml INHALE RQ4H WHILE AWAKE SACHIN Stop: 05/30/24 19:59 Last Admin: 05/30/24 11:36 Dose: 3 ml Documented By: YUSRA Albuterol/Ipratropium (Albuterol/Iprat 2.5/0.5mg 3 Ml Ampul.Neb) 3 ml INHALE RQ4H WHILE AWAKE PRN PRN Reason: Shortness of Breath/Wheezing Apixaban (Apixaban 5 Mg Tablet) 5 mg PO BID [facility] Last Admin: 05/30/24 08:02 Dose: 5 mg Documented By: BIRGIT Ascorbic Acid (Ascorbic Acid 500 Mg Tablet) 500 mg PO DAILY [facility] Last Admin: 05/30/24 08:02 Dose: 500 mg Documented By: BIRGIT Baclofen (Baclofen 20 Mg Tablet) 20 mg PO TID@0700,1200,1900 [facility] Last Admin: 05/30/24 12:04 Dose: 20 mg Documented By: BIRGIT Baclofen (Baclofen 20 Mg Tablet) 40 mg PO BEDTIME [facility] Last Admin: 05/29/24 21:18 Dose: 40 mg Documented By: CONNOR Calcitriol (Calcitriol 0.25 Mcg Capsule) 0.25 mcg PO DAILY [facility] Last Admin: 05/30/24 08:02 Dose: 0.25 mcg Documented By: BIRGIT Calcium Carbonate (Calcium Carbonate 750 Mg Tab.Chew) 750 mg PO Q4H PRN PRN Reason: Heartburn Dicyclomine HCl (Dicyclomine Hcl 10 Mg Capsule) 10 mg PO QID [facility] Last Admin: 05/30/24 12:04 Dose: 10 mg Documented By: BIRGIT Docusate Sodium (Docusate Sodium 100 Mg Capsule) 200 mg PO BEDTIME [facility] Last Admin: 05/29/24 21:11 Dose: 200 mg Documented By: CONNOR Ferrous Sulfate (Ferrous Sulfate 324 Mg Tablet.) 324 mg PO DAILY [facility] Last Admin: 05/30/24 08:02 Dose: 324 mg Documented By: BIRGIT Furosemide (Furosemide 20 Mg Tablet) 20 mg PO DAILY [facility]; Protocol Last Admin: 05/30/24 08:02 Dose: 20 mg Documented By: BIRGIT Gabapentin (Gabapentin 100 Mg Capsule) 100 mg PO BID@0800,1400 [facility] Last Admin: 05/30/24 08:01 Dose: 100 mg Documented By: BIRGIT Gabapentin (Gabapentin 600 Mg Tablet) 600 mg PO BEDTIME [facility] Last Admin: 05/29/24 21:11 Dose: 600 mg Documented By: CONNOR Guaifenesin (Guaifenesin La 600 Mg Tab.Er.12h) 1,200 mg PO BID [facility] Last Admin: 05/30/24 12:04 Dose: 1,200 mg Documented By: BIRGIT Guaifenesin/Dextromethorphan (Guaifenesin Dm 100/10/5 Ml 5 Ml Syrup) 5 ml PO Q4H PRN PRN Reason: Cough Last Admin: 05/30/24 12:04 Dose: 5 ml Documented By: BIRGIT Ampicillin Sodium/Sulbactam (Sodium 3 gm/ Sodium Chloride) 100 mls @ 200 mls/hr IV Q6H [facility] Levothyroxine Sodium (Levothyroxine Sodium 112 Mcg Tablet) 112 mcg PO DAILY@0600 [facility] Last Admin: 05/30/24 06:07 Dose: 112 mcg Documented By: CONNOR Levothyroxine Sodium (Levothyroxine Sodium 25 Mcg Tablet) 25 mcg PO DAILY@0600 [facility] Last Admin: 05/30/24 06:07 Dose: 25 mcg Documented By: CONNOR Magnesium Hydroxide (Milk Of Magnesia 30 Ml Oral.Susp) 30 ml PO DAILY PRN PRN Reason: Constipation Melatonin (Melatonin 3 Mg Tablet) 6 mg PO BEDTIME PRN PRN Reason: Insomnia Midodrine (Midodrine Hcl 10 Mg Tablet) 10 mg PO TIDAC [facility] Last Admin: 05/30/24 12:05 Dose: 10 mg Documented By: BIRGIT Multivitamins/Vitamin C (Multivitamin Tablet) 1 tab PO DAILY [facility] Last Admin: 05/30/24 08:02 Dose: 1 tab Documented By: BIRGIT Nystatin (Nystatin Powder 15 Gm Bottle) 1 appl TOPICAL BID [facility]; Protocol Last Admin: 05/30/24 08:15 Dose: Not Given Documented By: BIRGIT Non-Admin Reason: Med Not Available Oxybutynin Chloride (Oxybutynin Chloride Er 5 Mg Tab.Er.24) 10 mg PO DAILY [facility] Last Admin: 05/30/24 08:02 Dose: 10 mg Documented By: BIRGIT Senna (Sennosides 8.6 Mg Tablet) 8.6 mg PO DAILY PRN PRN Reason: Constipation Sodium Chloride (0.9 % Sodium Chloride Flush 3 Ml Syringe) 3 ml IVFLUSH QSHIFT [facility] Last Admin: 05/30/24 08:01 Dose: 3 ml Documented By: BIRGIT Tramadol HCl (Tramadol Hcl 50 Mg Tablet) 50 mg PO Q8H PRN PRN Reason: Pain, Moderate(Pain Scale 4-6) Trazodone HCl (Trazodone Hcl 25 Mg Halftab) 75 mg PO BEDTIME [facility] Last Admin: 05/29/24 21:12 Dose: 75 mg Documented By: CONNOR Labs 05/30/24 05:30 05/30/24 05:30 Labs: Laboratory Results - last 24 hr 05/29/24 05/29/24 05/29/24 12:41 14:37 20:21 MCV MCH MCHC RDW Plt Count MPV Absolute Nucleated RBC Nucleated RBC % (auto) Anion Gap Estim Creat Clear Calc Estimated GFR POC Glucose 136 H Random Glucose Calcium Urine Color Yellow Urine Appearance Cloudy Urine pH 6.0 Ur Specific [place] >= 1.030 H Urine Protein Negative Urine Glucose (UA) Negative Urine Ketones 15 Urine Blood Large (3+) H Urine Nitrite Positive H Ur Leukocyte Esterase Moderate (2+) H Urine RBC >20 H Urine WBC >50 H Urine WBC Clumps Present Ur Squamous Epith Cells 0-2 Urine Bacteria 2+ Hyaline Casts 0-2 Influenza Type A (PCR) NEGATIVE Influenza Type B (PCR) NEGATIVE RSV RNA Qual (PCR) NEGATIVE SARS-CoV-2 RNA (RT-PCR) NEGATIVE 05/30/24 05:30 MCV 89.4 MCH 27.9 MCHC 31.2 RDW 16.0 Plt Count 261 MPV 9.5 Absolute Nucleated RBC 0.000 Nucleated RBC % (auto) 0.0 Anion Gap 15 Estim Creat Clear Calc 199.7 Estimated GFR > 60 POC Glucose Random Glucose 150 H Calcium 7.8 L D Urine Color Urine Appearance Urine pH Ur Specific [place] Urine Protein Urine Glucose (UA) Urine Ketones Urine Blood Urine Nitrite Ur Leukocyte Esterase Urine RBC Urine WBC Urine WBC Clumps Ur Squamous Epith Cells Urine Bacteria Hyaline Casts Influenza Type A (PCR) Influenza Type B (PCR) RSV RNA Qual (PCR) SARS-CoV-2 RNA (RT-PCR) Microbiology Microbiology Results: Microbiology 05/29/24 Unknown Urine Culture - Preliminary Urine Catheterized - [place] Catheter Culture in progress. Assessment and Plan (1) Pneumonia: Status: Acute (2) Hypoxia: Status: Acute (3) UTI (urinary tract infection): Status: Acute Plan This is a 68-year-old male with a PMH significant for?paroxysmal AFib on Eliquis, paraplegia secondary to spinal cord injury, neurogenic bladder with chronic suprapubic catheter in place, recurrent UTIs, colostomy, pacemaker in place, hypothyroidism, chronic pain syndrome, and sacral decubitus ulcer who [facility] with increased SOB, difficulty breathing, and non-productive cough since yesterday. Pt will be admitted to the hospital for treatment and further evaluation of acute hypoxic respiratory failure in the setting of community acquired pneumonia. Acute hypoxic respiratory failure with hypoxia due to pneumonia CXR not optimal, but concerning for pleural effusion, atelectasis, and or infiltrate. No sepsis chest CT - worsening volume loss and consolidation throughout right lung suspicious for pneumonia Initially treated with ceftriaxone and azithromycin; we will transitioned to IV Unasyn to cover for any possible component of aspiration Continue supplemental oxygen, wean as tolerated continue mucomyst, mucinex, CPT Pulmonary consult Acute UTI due to suprapubic catheter history of recurrent UTIs. No sepsis unasyn as above Follow urine cultures pericardial effusion seen on CT - reported as similar to previous will obtain echo to assess Chronic lower leg edema 3+ pitting edema, chronic No hx of CHF, last echo 12/2023 s/p Lasix 20mg x1 dose no pulmonary edema on chest CT Continue baseline Lasix stage 3 (per notes from pervious admission) sacral decubitus ulcers. poa [facility]s with [facility] Wound care consult Patient positioning q.2h Hypotension, chronic BP as low as 96/56 despite fluids Continue midodrine History of paraplegia with neuropathy Continue baclofen, gabapentin Paroxysmal AFib Not on rate control agent Continue Eliquis Hypothyroidism Continue levothyroxine Full Code DVT Prophylaxis: Eliquis equires ongoing inpatient stay for treatment of?acute hypoxic respiratory failure in the setting of pneumonia requiring IV antibiotics, supplemental oxygen, and breathing treatments, specialist evaluation and close monitoring of respiratory status Quality Stroke Does the patient have a stroke diagnosis?: No VTE Prior VTE?: No VTE Risk Level:: Medical - moderate - high VTE Device Contraindication: Treatment Not Indicated VTE Drug Contraindication: N/A - Med Ordered
--- NOTE | 2024-05-30 13:30 | CA_ITS ---
Transthoracic Echocardiogram Patient (Last, First, Middle): Denzel Quinonez E Gender: Male Date of : 1955 Age: 68 Procedure Date: 05/30/2024 Procedure Type: Transthoracic Echocardiogram Location: S3E Height: 193.04 cm Weight: 130.64 kg BSA: 2.59 m2 Heart Rate: 60 bpm BP: 136 / 77 mmHg Bpm Developer: LETICIA Referring MD: Rosalva EDUARDO Symptoms: ?pericardial effusion Study Quality: Technically Difficult/Lmited by order ECG Rhythm: Sinus Conclusions: - There is a small to moderate pericardial effusion posteriorly. Very limited imaging of the left ventricle. Findings Procedure Information The study quality is limited by patients body habitus. Left Ventricle Normal left ventricular cavity size. The left ventricular systolic function is low normal. The visually estimated ejection fraction is between 50-55%. Pericardium/Pleural There is a small to moderate pericardial effusion posteriorly. Very limited imaging of the left ventricle. Prior Study Comparison No significant change compared to prior study dated: 12/04/2023. Measurements 2D Linear Measurements LVOT Diam: 2.50 3.0+(-)1.3 cm Mitral Valve MV Pk E: 1.14 MV PK A: 0.44 MV Decel Time: 208.00 E/A: 2.60 PHT: 61.00 MVA PHT: 3.61 Decel [place]: 5.50 LVOT LVOT Pk [place]: 0.67 LVOT Mn [place]: 0.45 LVOT VTI: 0.13 LVOT Pk Grad: 2.00 LVOT Mn Grad: 1.00 LVOT Diam: 2.50 LVOT Area: 4.91 Diastolic Function MV Pk E: 1.14 MV Pk A: 0.44 E/A: 2.60 Updated in Other Vendor System with Status of Final Edgar Jaime MD electronically signed on 05/31/2024 8:51:35 PM with status of Final
[2024-05-30] MEDS: Ampicillin Sodium/Sulbactam Na 3 GM in 0.9 % Sodium Chloride 100 ML IV ×2 (13:56→19:25)
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
[2024-05-30] MEDS: Acetylcysteine 10 % 400 MG/4 ML VIAL 200 MG INHALE (20:10)
[2024-05-30] MEDS: Albuterol Sulfate (0.083%) 2.5 MG/3 ML VIAL.NEB INHALE (20:10)
[2024-05-30 20:45] LABS: B Type Natriuretic Peptide 151 pg/mL (<100)
[2024-05-30] MEDS: traZODone HCL 25 MG HALFTAB 75 MG PO (21:15)
[2024-05-30] MEDS: Docusate Sodium 100 MG CAPSULE 200 MG PO (21:16)
[2024-05-30] MEDS: Gabapentin 600 MG TABLET PO (21:16)
[2024-05-30] MEDS: Baclofen 20 MG TABLET 40 MG PO (21:16)
[2024-05-30] MEDS: Nystatin Powder 15 GM BOTTLE 1 APPL TOPICAL (22:31)
[2024-05-31] VITALS (11 sets, daily range): BP systolic 94–137; BP diastolic 54–67; PULSE 60–75; RESP 12–18; TEMP 36–36.8; O2SAT 93–96; BMI 35.1
[2024-05-31] MEDS: Ampicillin Sodium/Sulbactam Na 3 GM in 0.9 % Sodium Chloride 100 ML IV ×4 (00:59→18:28)
[2024-05-31] MEDS: guaiFENesin DM 100/10/5 ML 5 ML SYRUP PO (03:16)
--- NOTE | 2024-05-31 03:28 | PC.NURSE ---
Pt seen on bed alert and oriented, tolerating O2 at 5L/min via NC via simple mask sating on the low to mid 90s, desating to low 80s when mask is accidentally off place, Colostomy noted on the left side full with hard pebble like stool and unable to empty, colostomy bag changed, Colostomy site is light pink, no edema nor discharge, surrounding skin intact, care tolerated, Suprapubic site crusted, cleansed with NSS, dressing applied.
[2024-05-31] MEDS: Levothyroxine Sodium 112 MCG TABLET PO (06:12)
[2024-05-31] MEDS: Baclofen 20 MG TABLET PO ×3 (06:12→18:26)
[2024-05-31] MEDS: Levothyroxine Sodium 25 MCG TABLET PO (06:12)
[2024-05-31] MEDS: Albuterol Sulfate (0.083%) 2.5 MG/3 ML VIAL.NEB INHALE ×2 (07:40→21:56)
[2024-05-31] MEDS: Acetylcysteine 10 % 400 MG/4 ML VIAL 200 MG INHALE ×2 (07:40→21:54)
[2024-05-31] MEDS: Gabapentin 100 MG CAPSULE PO ×2 (08:30→13:27)
[2024-05-31] MEDS: guaiFENesin LA 600 MG TAB.ER.12H 1200 MG PO ×2 (08:30→20:51)
[2024-05-31] MEDS: Dicyclomine HCl 10 MG CAPSULE PO ×3 (08:30→17:04)
[2024-05-31] MEDS: calcitrioL 0.25 MCG CAPSULE PO (08:30)
[2024-05-31] MEDS: Multivitamin TABLET 1 TAB PO (08:30)
[2024-05-31] MEDS: Ferrous Sulfate 324 MG TABLET.DR PO (08:30)
[2024-05-31] MEDS: oxyBUTYnin chloride ER 5 MG TAB.ER.24 10 MG PO (08:30)
[2024-05-31] MEDS: Apixaban 5 MG TABLET PO ×2 (08:31→20:51)
[2024-05-31] MEDS: Ascorbic Acid 500 MG TABLET PO (08:31)
[2024-05-31] MEDS: 0.9 % Sodium Chloride Flush 3 ML SYRINGE IVFLUSH ×3 (08:31→20:52)
[2024-05-31] MEDS: Midodrine HCl 10 MG TABLET PO ×3 (08:31→17:05)
[2024-05-31] MEDS: Nystatin Powder 15 GM BOTTLE 1 APPL TOPICAL ×2 (08:33→20:52)
--- NOTE | 2024-05-31 12:18 | MHC.CLN ---
PT WITH INCREASED NUTRITION RISK R/T PRESSURE INJURY DIET RX: 2GM NA-APPROPRIATE PO INTAKE 50-100% RECOMMEND ADDING ENSURE MAX BID TO PROMOTE WOUND HEALING SUPPLEMENT TO PROVIDE 300KCALS, 60G PROTEIN MONITOR PO INTAKE AND ENCOURAGE SUPPLEMENT SEE ALSO FULL CLINICAL NUTRITION SUPPLEMENT
--- NOTE | 2024-05-31 13:19 | MHC.CM.PN ---
PER MD ROUNDS, PT WILL LIKELY REMAIN INPT OVER THE WEEKEND DCP: RETURN TO VIA BLS
--- NOTE | 2024-05-31 16:48 | P.PNIM_ITS ---
Subjective Subjective Date of Service: 05/31/24 Interval History: seen and examined this morning follow up for pneumonia, respiratory failure feeling tired, still with cough; oxygen requirements trending down Review of Systems Review of Systems: Yes all other systems are reviewed and are negative Constitutional Constitutional: Denies chills and Denies fever(s) Physical Exam 2 Vital Signs: Vital Signs: Last Vital Signs Temp 97.4 F 05/31/24 15:07 Pulse 63 05/31/24 15:07 Resp 15 05/31/24 15:07 BP 109/63 05/31/24 15:07 Pulse Ox 95 05/31/24 15:07 O2 Del Method Oxymask 05/31/24 15:07 O2 Flow Rate 5 05/31/24 15:07 Oxygen Flow Rate 4 05/29/24 11:52 BMI result Body Mass Index 35.1 Const: General: cooperative, comfortable, alert and awake Nutritional Appearance: overweight Orientation/consciousness: patient oriented x3 Resp: Other: rhonchi, diminished Effort & Inspection: normal respiratory effort, able to speak in complete sentences, no respiratory distress and no use of accessory muscles Cardio: Rate: regular rate GI: Other: colostomy in place Inspection: No distended Palpation (GI): Soft to palpation : Other: suprapubic catheter present Neuro: Other: able to move upper extremities; chronic paraplegia General: patient oriented x3 Extrem: Other: lower extremity edema b/l Objective Data Active Medications Acetaminophen (Acetaminophen 325 Mg Tablet) 650 mg PO Q6H PRN PRN Reason: Pain, Mild 1-3,fever,headache Acetylcysteine (Acetylcysteine 10 % 400 Mg/4 Ml Vial) 200 mg INHALE [facility] Last Admin: 05/31/24 07:40 Dose: 200 mg Documented By: ERIN Albuterol Sulfate (Albuterol Sulfate (0.083%) 2.5 Mg/3 Ml Vial.Neb) 2.5 mg INHALE ID [facility] Last Admin: 05/31/24 07:40 Dose: 2.5 mg Documented By: ERIN Albuterol/Ipratropium (Albuterol/Iprat 2.5/0.5mg 3 Ml Ampul.Neb) 3 ml INHALE RQ4H WHILE AWAKE PRN PRN Reason: Shortness of Breath/Wheezing Apixaban (Apixaban 5 Mg Tablet) 5 mg PO BID [facility] Last Admin: 05/31/24 08:31 Dose: 5 mg Documented By: BRIGIT Ascorbic Acid (Ascorbic Acid 500 Mg Tablet) 500 mg PO DAILY [facility] Last Admin: 05/31/24 08:31 Dose: 500 mg Documented By: BIRGIT Baclofen (Baclofen 20 Mg Tablet) 20 mg PO TID@0700,1200,1900 [facility] Last Admin: 05/31/24 12:10 Dose: 20 mg Documented By: BIRGIT Baclofen (Baclofen 20 Mg Tablet) 40 mg PO BEDTIME [facility] Last Admin: 05/30/24 21:16 Dose: 40 mg Documented By: LAURENT Calcitriol (Calcitriol 0.25 Mcg Capsule) 0.25 mcg PO DAILY [facility] Last Admin: 05/31/24 08:30 Dose: 0.25 mcg Documented By: BIRGIT Calcium Carbonate (Calcium Carbonate 750 Mg Tab.Chew) 750 mg PO Q4H PRN PRN Reason: Heartburn Dicyclomine HCl (Dicyclomine Hcl 10 Mg Capsule) 10 mg PO QID [facility] Last Admin: 05/31/24 13:27 Dose: 10 mg Documented By: BIRGIT Docusate Sodium (Docusate Sodium 100 Mg Capsule) 200 mg PO BEDTIME [facility] Last Admin: 05/30/24 21:16 Dose: 200 mg Documented By: LAURENT Ferrous Sulfate (Ferrous Sulfate 324 Mg Tablet.Dr) 324 mg PO DAILY [facility] Last Admin: 05/31/24 08:30 Dose: 324 mg Documented By: BIRGIT Furosemide (Furosemide 20 Mg Tablet) 20 mg PO DAILY [facility]; Protocol Last Admin: 05/31/24 07:35 Dose: Not Given Documented By: BIRGIT Non-Admin Reason: MD chacon, low BP Gabapentin (Gabapentin 100 Mg Capsule) 100 mg PO BID@0800,1400 [facility] Last Admin: 05/31/24 13:27 Dose: 100 mg Documented By: BIRGIT Gabapentin (Gabapentin 600 Mg Tablet) 600 mg PO BEDTIME [facility] Last Admin: 05/30/24 21:16 Dose: 600 mg Documented By: LAURENT Guaifenesin (Guaifenesin La 600 Mg Tab.Er.12h) 1,200 mg PO BID [facility] Last Admin: 05/31/24 08:30 Dose: 1,200 mg Documented By: BIRGIT Guaifenesin/Dextromethorphan (Guaifenesin Dm 100/10/5 Ml 5 Ml Syrup) 5 ml PO Q4H PRN PRN Reason: Cough Last Admin: 05/31/24 03:16 Dose: 5 ml Documented By: LAURENT Ampicillin Sodium/Sulbactam (Sodium 3 gm/ Sodium Chloride) 100 mls @ 200 mls/hr IV Q6H [facility] Last Infusion: 05/31/24 14:14 Dose: Infused Documented By: BIRGIT Levothyroxine Sodium (Levothyroxine Sodium 112 Mcg Tablet) 112 mcg PO DAILY@0600 [facility] Last Admin: 05/31/24 06:12 Dose: 112 mcg Documented By: LAURENT Levothyroxine Sodium (Levothyroxine Sodium 25 Mcg Tablet) 25 mcg PO DAILY@0600 [facility] Last Admin: 05/31/24 06:12 Dose: 25 mcg Documented By: LAURENT Magnesium Hydroxide (Milk Of Magnesia 30 Ml Oral.Susp) 30 ml PO DAILY PRN PRN Reason: Constipation Melatonin (Melatonin 3 Mg Tablet) 6 mg PO BEDTIME PRN PRN Reason: Insomnia Midodrine (Midodrine Hcl 10 Mg Tablet) 10 mg PO TIDAC [facility] Last Admin: 05/31/24 12:10 Dose: 10 mg Documented By: BIRGIT Multivitamins/Vitamin C (Multivitamin Tablet) 1 tab PO DAILY [facility] Last Admin: 05/31/24 08:30 Dose: 1 tab Documented By: BIRGIT Nystatin (Nystatin Powder 15 Gm Bottle) 1 appl TOPICAL BID [facility]; Protocol Last Admin: 05/31/24 08:33 Dose: 1 appl Documented By: BIRGIT Oxybutynin Chloride (Oxybutynin Chloride Er 5 Mg Tab.Er.24) 10 mg PO DAILY [facility] Last Admin: 05/31/24 08:30 Dose: 10 mg Documented By: BIRGIT Senna (Sennosides 8.6 Mg Tablet) 8.6 mg PO DAILY PRN PRN Reason: Constipation Sodium Chloride (0.9 % Sodium Chloride Flush 3 Ml Syringe) [facility] Last Admin: 12/27/24 08:31 Dose: 3 ml Documented By: BIRGIT Tramadol HCl (Tramadol Hcl 50 Mg Tablet) 50 mg PO Q8H PRN PRN Reason: Pain, Moderate(Pain Scale 4-6) Trazodone HCl (Trazodone Hcl 25 Mg Halftab) 75 mg PO BEDTIME [facility] Last Admin: 05/30/24 21:15 Dose: 75 mg Documented By: DAVINAILRahel Labs 05/30/24 05:30 05/30/24 05:30 Labs: Laboratory Results - last 24 hr 05/29/24 12:05 B-Natriuretic Peptide 151 H Microbiology Microbiology Results: Microbiology 05/29/24 12:41 Blood Culture - Preliminary Blood - Venous No growth after 48 hours. 05/29/24 12:41 Blood Culture - Preliminary Blood - Venous No growth after 48 hours. 05/29/24 Unknown Urine Culture - Preliminary Urine Catheterized - [place] Catheter Culture in progress. Assessment and Plan (1) UTI (urinary tract infection): Status: Acute (2) Pneumonia: Status: Acute (3) Hypoxia: Status: Acute Plan This is a 68-year-old male with a PMH significant for?paroxysmal AFib on Eliquis, paraplegia secondary to spinal cord injury, neurogenic bladder with chronic suprapubic catheter in place, recurrent UTIs, colostomy, pacemaker in place, hypothyroidism, chronic pain syndrome, and sacral decubitus ulcer who presents to the ED from senior living with increased SOB, difficulty breathing, and non-productive cough since yesterday. Pt will be admitted to the hospital for treatment and further evaluation of acute hypoxic respiratory failure in the setting of community acquired pneumonia. Acute hypoxic respiratory failure with hypoxia due to pneumonia chest CT - worsening volume loss and consolidation throughout right lung suspicious for pneumonia Initially treated with ceftriaxone and azithromycin; we will transitioned to IV Unasyn to cover for any possible component of aspiration as per pulmonology recommendation Continue supplemental oxygen, wean as tolerated down to 5L oxymask continue mucomyst, mucinex, CPT seen by Pulmonary Acute UTI due to suprapubic catheter history of recurrent UTIs. No sepsis unasyn as above Follow urine cultures pericardial effusion seen on CT - reported as similar to previous will obtain echo to assess Chronic lower leg edema leg edema, chronic No hx of CHF, last echo 12/2023 no pulmonary edema on chest CT Continue baseline Lasix stage 3 (per notes from pervious admission) sacral decubitus ulcers. poa Follows with [facility] Wound care consult Patient positioning q.2h Hypotension, chronic Continue midodrine History of paraplegia with neuropathy Continue baclofen, gabapentin Paroxysmal AFib Not on rate control agent Continue Eliquis Hypothyroidism Continue levothyroxine Full Code DVT Prophylaxis: Eliquis equires ongoing inpatient stay for treatment of?acute hypoxic respiratory failure in the setting of pneumonia requiring IV antibiotics, supplemental oxygen, and breathing treatments, specialist evaluation and close monitoring of respiratory status Quality Stroke Does the patient have a stroke diagnosis?: No VTE Prior VTE?: No VTE Risk Level:: Medical - moderate - high VTE Device Contraindication: Treatment Not Indicated VTE Drug Contraindication: N/A - Med Ordered
[2024-05-31] MEDS: traZODone HCL 25 MG HALFTAB 75 MG PO (20:51)
[2024-05-31] MEDS: Docusate Sodium 100 MG CAPSULE 200 MG PO (20:51)
[2024-05-31] MEDS: Gabapentin 600 MG TABLET PO (20:51)
[2024-05-31] MEDS: Baclofen 20 MG TABLET 40 MG PO (20:52)
[2024-06-01] VITALS (8 sets, daily range): BP systolic 113–143; BP diastolic 58–77; PULSE 60–72; RESP 14–20; TEMP 36–36.9; O2SAT 92–97
[2024-06-01] MEDS: guaiFENesin DM 100/10/5 ML 5 ML SYRUP PO ×2 (00:34→08:39)
[2024-06-01] MEDS: Ampicillin Sodium/Sulbactam Na 3 GM in 0.9 % Sodium Chloride 100 ML IV ×4 (00:34→18:22)
[2024-06-01] MEDS: Albuterol/Iprat 2.5/0.5MG 3 ML AMPUL.NEB INHALE (00:38)
--- NOTE | 2024-06-01 03:36 | PC.NURSE ---
Pt has been noted with hard pebble-like stool in the colostomy, Dr. Baig was made aware, Tracie chacon.
[2024-06-01] MEDS: Levothyroxine Sodium 112 MCG TABLET PO (05:53)
[2024-06-01] MEDS: Levothyroxine Sodium 25 MCG TABLET PO (05:53)
[2024-06-01] MEDS: Baclofen 20 MG TABLET PO ×3 (05:53→18:21)
[2024-06-01] MEDS: Albuterol Sulfate (0.083%) 2.5 MG/3 ML VIAL.NEB INHALE ×2 (07:50→19:49)
[2024-06-01] MEDS: Acetylcysteine 10 % 400 MG/4 ML VIAL 200 MG INHALE ×2 (07:50→19:49)
[2024-06-01] MEDS: guaiFENesin LA 600 MG TAB.ER.12H 1200 MG PO ×2 (08:41→20:35)
[2024-06-01] MEDS: Midodrine HCl 10 MG TABLET PO ×3 (08:41→15:36)
[2024-06-01] MEDS: Apixaban 5 MG TABLET PO ×2 (08:41→20:35)
[2024-06-01] MEDS: calcitrioL 0.25 MCG CAPSULE PO (08:41)
[2024-06-01] MEDS: Multivitamin TABLET 1 TAB PO (08:42)
[2024-06-01] MEDS: Ferrous Sulfate 324 MG TABLET.DR PO (08:42)
[2024-06-01] MEDS: Ascorbic Acid 500 MG TABLET PO (08:42)
[2024-06-01] MEDS: 0.9 % Sodium Chloride Flush 3 ML SYRINGE IVFLUSH ×3 (08:42→20:34)
[2024-06-01] MEDS: Gabapentin 100 MG CAPSULE PO ×2 (08:42→13:42)
[2024-06-01] MEDS: Furosemide 20 MG TABLET PO (08:42)
[2024-06-01] MEDS: oxyBUTYnin chloride ER 5 MG TAB.ER.24 10 MG PO (09:01)
[2024-06-01] MEDS: Nystatin Powder 15 GM BOTTLE 1 APPL TOPICAL ×2 (09:01→20:35)
--- NOTE | 2024-06-01 11:36 | P.PNPL_ITS ---
Subjective Subjective Date of Service: 06/01/24 Interval history: Patient with poor effort/compliance with cough assist and chest physiotherapy and continues to require 4-5 L off supplemental oxygen. Objective Data Labs 05/30/24 05:30 05/30/24 05:30 Microbiology Microbiology Results: Microbiology 05/29/24 12:41 Blood - Venous Blood Culture - Preliminary No growth after 48 hours. 05/29/24 12:41 Blood - Venous Blood Culture - Preliminary No growth after 48 hours. 05/29/24 Unknown Urine Catheterized - [place] Catheter Urine Culture - Preliminary Culture in progress. Physical Exam 2 Vital Signs: Vital Signs: Last Vital Signs Temp 97.5 F 06/01/24 07:11 Pulse 64 06/01/24 07:54 Resp 18 06/01/24 07:54 BP 113/71 06/01/24 08:41 Pulse Ox 92 06/01/24 07:11 O2 Del Method Oxymask 06/01/24 07:11 O2 Flow Rate 5 06/01/24 07:11 Oxygen Flow Rate 4 05/29/24 11:52 BMI result Body Mass Index 35.1 Const: General: no acute distress, alert and awake Nutritional Appearance: obese Eyes: Sclerae: sclerae normal EOM: EOMs intact bilaterally Neck: Neck: Yes no lymphadenopathy, Yes trachea midline and Yes supple Resp: Effort & Inspection: normal respiratory effort and no respiratory distress Auscultation: crackles (Right-sided) Cardio: Rate: regular rate Rhythm: regular rhythm Heart sounds: no gallops, no murmurs and no rubs GI: Palpation (GI): Soft to palpation and Other GI palpation findings present ( Nontender) Auscultation: normal bowel sounds Extrem: General: Yes no pedal edema, No clubbing and No cyanosis Procedures Date of Service Date of Service: 06/01/24 Assessment and Plan Assessment and plan (1) Hypoxia: Status: Acute (2) Pulmonary atelectasis: Status: Acute Plan Impression: 68-year-old gentleman admitted with hypoxia and dyspnea with right- sided pneumonia with possible aspiration component and with pulmonary atelectasis secondary to significant mucus burden not improving as patient is poorly compliant with cough assist/chest physiotherapy. Recommendation: Continue chest physiotherapy and cough assist. Continue empiric antibiotics. Will plan for bronchoscopic secretion clearance in a.m.. Time Spent With Patient Time: Total time managing care of this patient today ____ minutes. Progress Note: Quality Stroke Does the patient have a stroke diagnosis?: No
--- NOTE | 2024-06-01 11:41 | PC.NURSE ---
area cleansed around suprapubic cath,clean drsg applied,skin intact
--- NOTE | 2024-06-01 15:13 | HO.PM.IMPN ---
Subjective Subjective Date of Service: 06/01/24 Interval History: seen and examined this morning follow up for respiratory failure feels about the same, but having hard time bringing up phlegm. resistant to suctioning, not able to get much up Review of Systems Review of Systems: Yes all other systems are reviewed and are negative Constitutional Constitutional: Denies chills and Denies fever(s) Physical Exam Vital Signs: Vital Signs: Last Vital Signs Temp 98.5 F 06/01/24 12:00 Pulse 67 06/01/24 12:00 Resp 18 06/01/24 12:00 BP 125/77 06/01/24 12:00 Pulse Ox 94 06/01/24 12:00 O2 Del Method Oxymask 06/01/24 12:00 O2 Flow Rate 5 06/01/24 12:00 Oxygen Flow Rate 4 05/29/24 11:52 BMI result Body Mass Index 35.1 Const: General: cooperative, comfortable, alert and awake Nutritional Appearance: overweight Orientation/consciousness: patient oriented x3 Resp: Other: diffuse rhonchi Effort & Inspection: normal respiratory effort, able to speak in complete sentences, no respiratory distress and no use of accessory muscles Cardio: Rate: regular rate GI: Other: colostomy in place Inspection: No distended Palpation (GI): Soft to palpation : Other: suprapubic catheter present Neuro: Other: able to move upper extremities; chronic paraplegia General: patient oriented x3 Extrem: Other: lower extremity edema b/l (chronic) Objective Data Active Medications Acetaminophen (Acetaminophen 325 Mg Tablet) 650 mg PO Q6H PRN PRN Reason: Pain, Mild 1-3,fever,headache Acetylcysteine (Acetylcysteine 10 % 400 Mg/4 Ml Vial) 200 mg INHALE ID [facility] Last Admin: 06/01/24 07:50 Dose: 200 mg Documented By: ERIN Albuterol Sulfate (Albuterol Sulfate (0.083%) 2.5 Mg/3 Ml Vial.Neb) 2.5 mg INHALE ID [facility] Last Admin: 06/01/24 07:50 Dose: 2.5 mg Documented By: ERIN Albuterol/Ipratropium (Albuterol/Iprat 2.5/0.5mg 3 Ml Ampul.Neb) 3 ml INHALE RQ4H WHILE AWAKE PRN PRN Reason: Shortness of Breath/Wheezing Last Admin: 06/01/24 00:38 Dose: 3 ml Documented By: JUSTIN Apixaban (Apixaban 5 Mg Tablet) 5 mg PO BID [facility] Last Admin: 06/01/24 08:41 Dose: 5 mg Documented By: CARLOTA Ascorbic Acid (Ascorbic Acid 500 Mg Tablet) 500 mg PO DAILY [facility] Last Admin: 06/01/24 08:42 Dose: 500 mg Documented By: CARLOTA Baclofen (Baclofen 20 Mg Tablet) 20 mg PO TID@0700,1200,1900 [facility] Last Admin: 06/01/24 12:50 Dose: 20 mg Documented By: CARLOTA Baclofen (Baclofen 20 Mg Tablet) 40 mg PO BEDTIME [facility] Last Admin: 05/31/24 20:52 Dose: 40 mg Documented By: LAURENT Calcitriol (Calcitriol 0.25 Mcg Capsule) 0.25 mcg PO DAILY [facility] Last Admin: 06/01/24 08:41 Dose: 0.25 mcg Documented By: CARLOTA Calcium Carbonate (Calcium Carbonate 750 Mg Tab.Chew) 750 mg PO Q4H PRN PRN Reason: Heartburn Dicyclomine HCl (Dicyclomine Hcl 10 Mg Capsule) 10 mg PO QID [facility] Last Admin: 06/01/24 12:44 Dose: Not Given Documented By: CARLOTA Non-Admin Reason: hard stool ALESHA sepulveda Docusate Sodium (Docusate Sodium 100 Mg Capsule) 200 mg PO BEDTIME [facility] Last Admin: 05/31/24 20:51 Dose: 200 mg Documented By: LAURENT Ferrous Sulfate (Ferrous Sulfate 324 Mg Tablet.) 324 mg PO DAILY [facility] Last Admin: 06/01/24 08:42 Dose: 324 mg Documented By: CARLOTA Furosemide (Furosemide 20 Mg Tablet) 20 mg PO DAILY [facility]; Protocol Last Admin: 06/01/24 08:42 Dose: 20 mg Documented By: CARLOTA Gabapentin (Gabapentin 100 Mg Capsule) 100 mg PO BID@0800,1400 [facility] Last Admin: 06/01/24 13:42 Dose: 100 mg Documented By: CARLOTA Gabapentin (Gabapentin 600 Mg Tablet) 600 mg PO BEDTIME [facility] Last Admin: 05/31/24 20:51 Dose: 600 mg Documented By: LAURENT Guaifenesin (Guaifenesin La 600 Mg Tab.Er.12h) 1,200 mg PO BID [facility] Last Admin: 06/01/24 08:41 Dose: 1,200 mg Documented By: CARLOTA Guaifenesin/Dextromethorphan (Guaifenesin Dm 100/10/5 Ml 5 Ml Syrup) 5 ml PO Q4H PRN PRN Reason: Cough Last Admin: 06/01/24 08:39 Dose: 5 ml Documented By: CARLOTA Ampicillin Sodium/Sulbactam (Sodium 3 gm/ Sodium Chloride) 100 mls @ 200 mls/hr IV Q6H [facility] Last Infusion: 06/01/24 13:40 Dose: Infused Documented By: CARLOTA Levothyroxine Sodium (Levothyroxine Sodium 112 Mcg Tablet) 112 mcg PO DAILY@0600 [facility] Last Admin: 06/01/24 05:53 Dose: 112 mcg Documented By: LAURENT Levothyroxine Sodium (Levothyroxine Sodium 25 Mcg Tablet) 25 mcg PO DAILY@0600 [facility] Last Admin: 06/01/24 05:53 Dose: 25 mcg Documented By: LAURENT Magnesium Hydroxide (Milk Of Magnesia 30 Ml Oral.Susp) 30 ml PO DAILY PRN PRN Reason: Constipation Melatonin (Melatonin 3 Mg Tablet) 6 mg PO BEDTIME PRN PRN Reason: Insomnia Midodrine (Midodrine Hcl 10 Mg Tablet) 10 mg PO TIDAC [facility] Last Admin: 06/01/24 12:50 Dose: 10 mg Documented By: CARLOTA Multivitamins/Vitamin C (Multivitamin Tablet) 1 tab PO DAILY [facility] Last Admin: 06/01/24 08:42 Dose: 1 tab Documented By: CARLOTA Nystatin (Nystatin Powder 15 Gm Bottle) 1 appl TOPICAL BID [facility]; Protocol Last Admin: 06/01/24 09:01 Dose: 1 appl Documented By: CARLOTA Oxybutynin Chloride (Oxybutynin Chloride Er 5 Mg Tab.Er.24) 10 mg PO DAILY [facility] Last Admin: 06/01/24 09:01 Dose: 10 mg Documented By: CARLOTA Senna (Sennosides 8.6 Mg Tablet) 8.6 mg PO DAILY PRN PRN Reason: Constipation Sodium Chloride (0.9 % Sodium Chloride Flush 3 Ml Syringe) 3 ml IVFLUSH QSHIFT [facility] Last Admin: 06/01/24 08:42 Dose: 3 ml Documented By: CARLOTA Tramadol HCl (Tramadol Hcl 50 Mg Tablet) 50 mg PO Q8H PRN PRN Reason: Pain, Moderate(Pain Scale 4-6) Trazodone HCl (Trazodone Hcl 25 Mg Halftab) 75 mg PO BEDTIME [facility] Last Admin: 05/31/24 20:51 Dose: 75 mg Documented By: CASTILM Labs 05/30/24 05:30 05/30/24 05:30 Microbiology Microbiology Results: Microbiology 05/29/24 Unknown Urine Culture - Preliminary Urine Catheterized - [place] Catheter Gram negative emilio 05/29/24 12:41 Blood Culture - Preliminary Blood - Venous No growth after 48 hours. 05/29/24 12:41 Blood Culture - Preliminary Blood - Venous No growth after 48 hours. Assessment and Plan (1) Pneumonia: Status: Acute (2) UTI (urinary tract infection): Status: Acute Plan This is a 68-year-old male with a PMH significant for?paroxysmal AFib on Eliquis, paraplegia secondary to spinal cord injury, neurogenic bladder with chronic suprapubic catheter in place, recurrent UTIs, colostomy, pacemaker in place, hypothyroidism, chronic pain syndrome, and sacral decubitus ulcer who presents to the ED from half-way with increased SOB, difficulty breathing, and non-productive cough since yesterday. Pt will be admitted to the hospital for treatment and further evaluation of acute hypoxic respiratory failure in the setting of community acquired pneumonia. Acute hypoxic respiratory failure with hypoxia due to pneumonia chest CT - worsening volume loss and consolidation throughout right lung suspicious for pneumonia Initially treated with ceftriaxone and azithromycin; we will transitioned to IV Unasyn to cover for any possible component of aspiration as per pulmonology recommendation Continue supplemental oxygen, wean as tolerated down to 5L oxymask continue mucomyst, mucinex, CPT seen by Pulmonary plan for bronchoscopy for secretion clearance in am - NPO at midnight Acute UTI due to suprapubic catheter history of recurrent UTIs. No sepsis unasyn as above urine culture growing GNR pericardial effusion seen on CT - reported as similar to previous echo with small to moderate pericardial effusion - no significant change from prior study in december 2023 Chronic lower leg edema leg edema, chronic No hx of CHF, last echo 12/2023 no pulmonary edema on chest CT Continue baseline Lasix stage 3 (per notes from pervious admission) sacral decubitus ulcers. poa Follows with [facility] Wound care consult Patient positioning q.2h Hypotension, chronic Continue midodrine History of paraplegia with neuropathy Continue baclofen, gabapentin Paroxysmal AFib Not on rate control agent Continue Eliquis Hypothyroidism Continue levothyroxine Full Code DVT Prophylaxis: Eliquis equires ongoing inpatient stay for treatment of?acute hypoxic respiratory failure in the setting of pneumonia requiring IV antibiotics, supplemental oxygen, and breathing treatments, specialist evaluation and close monitoring of respiratory status Quality Stroke Does the patient have a stroke diagnosis?: No VTE Prior VTE?: No VTE Risk Level:: Medical - moderate - high VTE Device Contraindication: Treatment Not Indicated VTE Drug Contraindication: N/A - Med Ordered
[2024-06-01] MEDS: Baclofen 20 MG TABLET 40 MG PO (20:35)
[2024-06-01] MEDS: traZODone HCL 25 MG HALFTAB 75 MG PO (20:35)
[2024-06-01] MEDS: Docusate Sodium 100 MG CAPSULE 200 MG PO (20:35)
[2024-06-01] MEDS: Gabapentin 600 MG TABLET PO (20:35)
[2024-06-02] VITALS (13 sets, daily range): BP systolic 98–120; BP diastolic 44–63; PULSE 60–80; RESP 15–20; TEMP 36.1–36.6; O2SAT 89–98
[2024-06-02] MEDS: Ampicillin Sodium/Sulbactam Na 3 GM in 0.9 % Sodium Chloride 100 ML IV ×2 (00:04→06:13)
[2024-06-02] MEDS: Albuterol Sulfate (0.083%) 2.5 MG/3 ML VIAL.NEB INHALE ×2 (08:00→19:49)
[2024-06-02] MEDS: Acetylcysteine 10 % 400 MG/4 ML VIAL 200 MG INHALE ×2 (08:00→19:49)
[2024-06-02] MEDS: Nystatin Powder 15 GM BOTTLE 1 APPL TOPICAL ×2 (08:44→20:49)
[2024-06-02] MEDS: 0.9 % Sodium Chloride Flush 3 ML SYRINGE IVFLUSH ×3 (08:45→20:50)
--- NOTE | 2024-06-02 09:52 | HO.ANESPROP2 ---
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 (Acute) Osteoarthritis of right shoulder (Acute) Chronic osteomyelitis with draining sinus, other site (Acute) Spinal cord injury (Acute) Acute confusion (Acute) Past Medical History Medical History Suprapubic catheter dysfunction Neurogenic bladder Quadriplegia, C5-C7 incomplete Atrial fibrillation Chronic restrictive lung disease Pneumonia Urine retention Irreducible left inguinal hernia Autonomic dysfunction Hypothyroidism Hernia Spasms of the hands or feet Spinal cord injury Family History Family History Sister Diabetes mellitus Family history of problems with anesthesia: No Surgical History Surgical History Chronic suprapubic catheter S/P tendon repair H/O hemorrhoidectomy S/P IVC filter H/O hernia repair H/O thyroidectomy History of Problems with Anesthesia: Yes Social History Social History Household Members: None Household Members Other:: [facility] Housing: Intermediate Housing Other:: [facility] in [place] Do you presently have visiting nurse or other home services: No Alcohol intake: former Comment: pt paraplagic Patient Tobacco Use Status: Never used Tobacco Use of substances other than those prescribed or required for medical reasons: No Currently Displaying Signs/Symptoms of Drug Intoxication Withdrawal: No Advance Directives: Yes Advance Directives on File: Yes Advance Directives Date on File: 01/09/23 Do you have a plan to hurt others: No Plan service: No Meds Allergies Allergy/AdvReac Type Severity Reaction Status Date / Time dicloxacillin [From DYNAPEN] Allergy Unknown Unknown Verified 05/29/24 11:55 ofloxacin [From FLOXIN] AdvReac Intermediate Abdominal Verified 05/29/24 11:55 Pain penicillin V AdvReac Intermediate Abdominal Verified 05/29/24 11:55 Pain Active Medications: Current Medications Acetaminophen (Acetaminophen 325 Mg Tablet) 650 mg PO Q6H PRN PRN Reason: Pain, Mild 1-3,fever,headache Acetylcysteine (Acetylcysteine 10 % 400 Mg/4 Ml Vial) 200 mg INHALE RBID [facility] [place] Last Admin: 06/02/24 08:00 Dose: 200 mg Albuterol Sulfate (Albuterol Sulfate (0.083%) 2.5 Mg/3 Ml Vial.Neb) 2.5 mg INHALE RBID [facility] [place] Last Admin: 06/02/24 08:00 Dose: 2.5 mg Albuterol/Ipratropium (Albuterol/Iprat 2.5/0.5mg 3 Ml Ampul.Neb) 3 ml INHALE RQ4H WHILE AWAKE PRN PRN Reason: Shortness of Breath/Wheezing Last Admin: 06/01/24 00:38 Dose: 3 ml Apixaban (Apixaban 5 Mg Tablet) 5 mg PO BID [facility] [place] Last Admin: 06/02/24 08:10 Dose: Not Given Ascorbic Acid (Ascorbic Acid 500 Mg Tablet) 500 mg PO DAILY [facility] [place] Last Admin: 06/02/24 08:10 Dose: Not Given Baclofen (Baclofen 20 Mg Tablet) 20 mg PO TID@0700,1200,1900 [facility] [place] Last Admin: 06/02/24 06:13 Dose: Not Given Baclofen (Baclofen 20 Mg Tablet) 40 mg PO BEDTIME [facility] [place] Last Admin: 06/01/24 20:35 Dose: 40 mg Calcitriol (Calcitriol 0.25 Mcg Capsule) 0.25 mcg PO DAILY [facility] [place] Last Admin: 06/02/24 08:10 Dose: Not Given Calcium Carbonate (Calcium Carbonate 750 Mg Tab.Chew) 750 mg PO Q4H PRN PRN Reason: Heartburn Dicyclomine HCl (Dicyclomine Hcl 10 Mg Capsule) 10 mg PO QID [facility] [place] Last Admin: 06/02/24 08:10 Dose: Not Given Docusate Sodium (Docusate Sodium 100 Mg Capsule) 200 mg PO BEDTIME [facility] [place] Last Admin: 06/01/24 20:35 Dose: 200 mg Ferrous Sulfate (Ferrous Sulfate 324 Mg Tablet.Dr) 324 mg PO DAILY [facility] [place] Last Admin: 06/02/24 08:11 Dose: Not Given Furosemide (Furosemide 20 Mg Tablet) 20 mg PO DAILY [facility] [place]; Protocol Last Admin: 06/02/24 08:11 Dose: Not Given Gabapentin (Gabapentin 100 Mg Capsule) 100 mg PO BID@0800,1400 [facility] [place] Last Admin: 06/02/24 08:10 Dose: Not Given Gabapentin (Gabapentin 600 Mg Tablet) 600 mg PO BEDTIME [facility] [place] Last Admin: 06/01/24 20:35 Dose: 600 mg Guaifenesin (Guaifenesin La 600 Mg Tab.Er.12h) 1,200 mg PO BID [facility] [place] Last Admin: 06/02/24 08:11 Dose: Not Given Guaifenesin/Dextromethorphan (Guaifenesin Dm 100/10/5 Ml 5 Ml Syrup) 5 ml PO Q4H PRN PRN Reason: Cough Last Admin: 06/01/24 08:39 Dose: 5 ml Ampicillin Sodium/Sulbactam (Sodium 3 gm/ Sodium Chloride) 100 mls @ 200 mls/hr IV Q6H [facility] [place] Last Infusion: 06/02/24 06:49 Dose: Infused Levothyroxine Sodium (Levothyroxine Sodium 112 Mcg Tablet) 112 mcg PO DAILY@0600 [facility] [place] Last Admin: 06/02/24 06:13 Dose: Not Given Levothyroxine Sodium (Levothyroxine Sodium 25 Mcg Tablet) 25 mcg PO DAILY@0600 [facility] [place] Last Admin: 06/02/24 06:13 Dose: Not Given Magnesium Hydroxide (Milk Of Magnesia 30 Ml Oral.Susp) 30 ml PO DAILY PRN PRN Reason: Constipation Melatonin (Melatonin 3 Mg Tablet) 6 mg PO BEDTIME PRN PRN Reason: Insomnia Midodrine (Midodrine Hcl 10 Mg Tablet) 10 mg PO TIDAC [facility] [place] Last Admin: 06/02/24 08:10 Dose: Not Given Multivitamins/Vitamin C (Multivitamin Tablet) 1 tab PO DAILY [facility] [place] Last Admin: 06/02/24 08:11 Dose: Not Given Nystatin (Nystatin Powder 15 Gm Bottle) 1 appl TOPICAL BID [facility] [place]; Protocol Last Admin: 06/02/24 08:44 Dose: 1 appl Oxybutynin Chloride (Oxybutynin Chloride Er 5 Mg Tab.Er.24) 10 mg PO DAILY [facility] [place] Last Admin: 06/02/24 08:11 Dose: Not Given Senna (Sennosides 8.6 Mg Tablet) 8.6 mg PO DAILY PRN PRN Reason: Constipation Sodium Chloride (0.9 % Sodium Chloride Flush 3 Ml Syringe) 3 ml IVFLUSH QSHIFT [facility] [place] Last Admin: 06/02/24 08:45 Dose: 3 ml Tramadol HCl (Tramadol Hcl 50 Mg Tablet) 50 mg PO Q8H PRN PRN Reason: Pain, Moderate(Pain Scale 4-6) Trazodone HCl (Trazodone Hcl 25 Mg Halftab) 75 mg PO BEDTIME [facility] [place] Last Admin: 06/01/24 20:35 Dose: 75 mg Home Medications ?Medication ?Instructions ?Recorded ?Confirmed ?Last Taken ?Type ascorbic acid (vitamin C) 500 mg 500 mg PO DAILY 03/23/20 05/29/24 03/23/20 History tablet calcitriol 0.25 mcg capsule 0.25 mcg PO DAILY 03/23/20 05/29/24 03/23/20 History docusate sodium 100 mg capsule 200 mg PO BEDTIME 03/23/20 05/29/24 03/23/20 History (Colace) cholecalciferol (vitamin D3) 1,250 1,250 mcg PO QMONTH 01/09/23 05/29/24 11/23/23 History mcg (50,000 unit) tablet dicyclomine 10 mg capsule 10 mg PO QID 01/09/23 05/29/24 Unknown History furosemide 20 mg tablet 20 mg PO DAILY 01/09/23 05/29/24 Unknown History gabapentin 100 mg capsule 100 mg PO BID@0800,1400 01/09/23 05/29/24 Unknown History gabapentin 600 mg tablet 600 mg PO BEDTIME 01/09/23 05/29/24 Unknown History melatonin 10 mg tablet 10 mg PO BEDTIME Sleep 01/09/23 05/29/24 Unknown History midodrine 10 mg tablet 10 mg PO TIDAC 01/09/23 05/29/24 Unknown History acetaminophen 325 mg tablet 650 mg PO Q6H PRN 11/26/23 05/29/24 Unknown History headache/fever/bodyaches nystatin 100,000 unit/gram topical 1 appl topical BID Rash 11/26/23 05/29/24 Unknown History powder (Nyamyc) trazodone 150 mg tablet 75 mg PO BEDTIME 11/26/23 05/29/24 Unknown History ferrous sulfate 325 mg (65 mg 325 mg PO DAILY 12/04/23 05/29/24 Unknown History iron) tablet (FeroSul) miconazole nitrate 2 % topical 1 appl topical BID PRN fungal rash 12/04/23 05/29/24 Unknown History cream sennosides 8.6 mg tablet (senna) 8.6 mg PO DAILY PRN Constipation 12/04/23 05/29/24 Unknown History apixaban 5 mg tablet (Eliquis) 5 mg PO BID 04/29/24 05/29/24 Unknown History baclofen 20 mg tablet 20 mg PO TID@0700,1200,1900 05/29/24 05/29/24 Unknown History baclofen 20 mg tablet 40 mg PO BEDTIME 05/29/24 05/29/24 Unknown History levothyroxine 137 mcg tablet 137 mcg PO DAILY@0630 05/29/24 05/29/24 Unknown History [id number] 1 tab PO DAILY 05/29/24 05/29/24 Unknown History fumarate 19 mg-folic acid 400 mcg tablet (Thera-M) nystatin 100,000 unit/gram topical 1 appl topical BID 05/29/24 05/29/24 Unknown History cream Exam Height,Weight and Vital Signs: Height 6 ft 4 in Weight 130.9 kg Last Vital Signs Temp 97.9 F 06/02/24 07:27 Pulse 62 06/02/24 08:04 Resp 18 06/02/24 08:04 BP 98/61 06/02/24 07:27 Pulse Ox 98 06/02/24 07:27 O2 Del Method Oxymask 06/02/24 07:27 O2 Flow Rate 5 06/02/24 07:27 Oxygen Flow Rate 4 05/29/24 11:52 Pertinent Lab Results Pertinent Lab Results: Laboratory Tests 05/29/24 05/29/24 05/29/24 12:05 12:41 14:37 WBC 7.7 RBC 3.81 L Hgb 10.6 L Hct 33.4 L MCV 87.7 MCH 27.8 MCHC 31.7 RDW 16.4 H Plt Count 261 MPV 8.9 L Immature Gran % (Auto) 0.5 H Neut % (Auto) 71.3 Lymph % (Auto) 18.0 L [place] % (Auto) 7.2 Eos % (Auto) 2.6 Baso % (Auto) 0.4 Lymph # (Auto) 1.4 [place] # (Auto) 0.6 Eos # (Auto) 0.2 Baso # (Auto) 0.0 Abs Immat Gran (auto) 0.04 H Absolute Neuts (auto) 5.5 Absolute Nucleated RBC 0.000 Nucleated RBC % (auto) 0.0 PT 22.5 H INR 1.9 H Sodium 139 Potassium 3.6 Chloride 100 Carbon Dioxide 29 Anion Gap 14 BUN 14 Creatinine 0.62 Estim Creat Clear Calc 170.7 Estimated GFR > 60 POC Glucose Random Glucose 96 Lactic Acid 0.9 Calcium 8.5 D Magnesium 1.8 Total Bilirubin 0.5 AST 21 ALT 12 Alkaline Phosphatase 70 B-Natriuretic Peptide 151 H Total Protein 7.5 Albumin 3.7 Lipase 12 Urine Color Yellow Urine Appearance Cloudy Urine pH 6.0 Ur Specific [place] >= 1.030 H Urine Protein Negative Urine Glucose (UA) Negative Urine Ketones 15 Urine Blood Large (3+) H Urine Nitrite Positive H Ur Leukocyte Esterase Moderate (2+) H Urine RBC >20 H Urine WBC >50 H Urine WBC Clumps Present Ur Squamous Epith Cells 0-2 Urine Bacteria 2+ Hyaline Casts 0-2 Influenza Type A (PCR) NEGATIVE Influenza Type B (PCR) NEGATIVE RSV RNA Qual (PCR) NEGATIVE SARS-CoV-2 RNA (RT-PCR) NEGATIVE 05/29/24 05/30/24 20:21 05:30 WBC 9.4 RBC 3.77 L Hgb 10.5 L Hct 33.7 L MCV 89.4 MCH 27.9 MCHC 31.2 RDW 16.0 Plt Count 261 MPV 9.5 Immature Gran % (Auto) Neut % (Auto) Lymph % (Auto) [place] % (Auto) Eos % (Auto) Baso % (Auto) Lymph # (Auto) [place] # (Auto) Eos # (Auto) Baso # (Auto) Abs Immat Gran (auto) Absolute Neuts (auto) Absolute Nucleated RBC 0.000 Nucleated RBC % (auto) 0.0 PT INR Sodium 140 Potassium 3.7 Chloride 100 Carbon Dioxide 29 Anion Gap 15 BUN 11 Creatinine 0.53 Estim Creat Clear Calc 199.7 Estimated GFR > 60 POC Glucose 136 H Random Glucose 150 H Lactic Acid Calcium 7.8 L D Magnesium Total Bilirubin AST ALT Alkaline Phosphatase B-Natriuretic Peptide Total Protein Albumin Lipase Urine Color Urine Appearance Urine pH Ur Specific [place] Urine Protein Urine Glucose (UA) Urine Ketones Urine Blood Urine Nitrite Ur Leukocyte Esterase Urine RBC Urine WBC Urine WBC Clumps Ur Squamous Epith Cells Urine Bacteria Hyaline Casts Influenza Type A (PCR) Influenza Type B (PCR) RSV RNA Qual (PCR) SARS-CoV-2 RNA (RT-PCR) Airway Mallampati Class: II TM Dist: >3cm Neck ROM: Full Heart: RRR Assessment and Plan Assessment Anesthesia Assessment: Anesthesia Plan Discussed and Chart Reviewed Final Anesthetic Review Family History of Problems with Anesthesia: No History of Problems with Anesthesia: Yes NPO: Yes ASA Class: III Final Preanesthetic Review: No Changes in Pt Med Stat, Meds/Allgs Chart Reviewed, Consent Obtained/Reviewed and Anes Risks/Benef Reviewed Patient Risk: Intermediate Procedure Risk: Low Anesthetic Plan Anesthetic Plan: GA Disposition: Standard PACU
--- NOTE | 2024-06-02 10:05 | MHC.SHP ---
Pre-Procedural Eval Section A - 24 Hr Update-Section A only Date of Service: 06/02/24 The patient is an INPATIENT: Yes Changes since office visit: Yes Patient answered all questions; No Cold of Flu in the past 2 weeks, No New Medical Problems and No Changes in Medication The patient has been examined within 24 hours of the surgical procedure. The History & Physical has been completed within 30 days and I have reviewed it.: Yes Section B - Complete if H&P > 30 days Chief Complaint: Acute hypoxic respiratory failure with pneumonia Allergies: Allergies Allergy/AdvReac Type Severity Reaction Status Date / Time dicloxacillin [From DYNAPEN] Allergy Unknown Unknown Verified 05/29/24 11:55 ofloxacin [From FLOXIN] AdvReac Intermediate Abdominal Verified 05/29/24 11:55 Pain penicillin V AdvReac Intermediate Abdominal Verified 05/29/24 11:55 Pain Plan Diagnosis/Plan: Unchanged I have reviewed the history and physical and performed a pertinent physical examination on my patient. No changes have occurred unless specified. Time Spent With Patient Time: Total time managing care of this patient today ____ minutes.
--- NOTE | 2024-06-02 10:26 | PC.NURSE ---
ALESHA Brice notified via tiger text at 07:34 scheduled meds being held for bronch this am including scheduled Eliquis.
--- NOTE | 2024-06-02 10:58 | P.BOP_ITS ---
Brief Operative Note Date of Service: 06/02/24 Pre-op diagnosis: Hypoxia, pneumonia, atelectasis Post-op diagnosis: same Procedure: Flexible bronchoscope advanced through the ET tube and through tracheobronchial tree with patient intubated for the procedure. Copious about of yellowish mucus noted on the right side. Approximately 80 cc of mucus cleared with normal bronchial mucosa noted underneath. No significant mucus noted on the left side. Sample was sent for microbiologic testing. Patient tolerated the procedure well and was returned to PACU in stable condition. Surgeon: Kris Fuentes MD Anesthesia: GETA Was an Scrum Coach used for this Procedure?: No Estimated blood loss (mL): 0 Condition: stable Disposition: PACU
--- NOTE | 2024-06-02 11:16 | P.PNIM_ITS ---
Subjective Subjective Date of Service: 06/02/24 Interval History: seen and examined this morning follow up for pneumonia still with secretions and unable to bring up phlegm - plan for bronchoscopy today Review of Systems Review of Systems: Yes all other systems are reviewed and are negative Constitutional Constitutional: Denies chills and Denies fever(s) Physical Exam 2 Vital Signs: Vital Signs: Last Vital Signs Temp 97 F 06/02/24 11:00 Pulse 60 06/02/24 11:10 Resp 20 06/02/24 11:10 BP 109/47 L 06/02/24 11:10 Pulse Ox 97 06/02/24 11:10 O2 Del Method Humidified O2 06/02/24 11:10 O2 Flow Rate 8 06/02/24 11:00 Oxygen Flow Rate 4 05/29/24 11:52 BMI result Body Mass Index 35.1 Const: General: cooperative, comfortable, alert and awake Nutritional Appearance: overweight Orientation/consciousness: patient oriented x3 Resp: Other: diffuse rhonchi Effort & Inspection: normal respiratory effort, able to speak in complete sentences, no respiratory distress and no use of accessory muscles Cardio: Rate: regular rate GI: Other: colostomy in place Inspection: No distended Palpation (GI): Soft to palpation : Other: suprapubic catheter present Neuro: Other: able to move upper extremities; chronic paraplegia General: patient oriented x3 Extrem: Other: lower extremity edema b/l (chronic) Objective Data Active Medications Acetaminophen (Acetaminophen 325 Mg Tablet) 650 mg PO Q6H PRN PRN Reason: Pain, Mild 1-3,fever,headache Acetylcysteine (Acetylcysteine 10 % 400 Mg/4 Ml Vial) 200 mg INHALE RBID [facility] Last Admin: 06/02/24 08:00 Dose: 200 mg Documented By: ERIN Albuterol Sulfate (Albuterol Sulfate (0.083%) 2.5 Mg/3 Ml Vial.Neb) 2.5 mg INHALE RBID [facility] Last Admin: 06/02/24 08:00 Dose: 2.5 mg Documented By: ERIN Albuterol/Ipratropium (Albuterol/Iprat 2.5/0.5mg 3 Ml Ampul.Neb) 3 ml INHALE RQ4H WHILE AWAKE PRN PRN Reason: Shortness of Breath/Wheezing Last Admin: 06/01/24 00:38 Dose: 3 ml Documented By: JUSTIN Apixaban (Apixaban 5 Mg Tablet) 5 mg PO BID [facility] Last Admin: 06/02/24 08:10 Dose: Not Given Documented By: HUGH Non-Admin Reason: NPO Ascorbic Acid (Ascorbic Acid 500 Mg Tablet) 500 mg PO DAILY [facility] Last Admin: 06/02/24 08:10 Dose: Not Given Documented By: HUGH Non-Admin Reason: Nausea Baclofen (Baclofen 20 Mg Tablet) 20 mg PO TID@0700,1200,1900 [facility] Last Admin: 06/02/24 06:13 Dose: Not Given Documented By: GABI Non-Admin Reason: NPO Baclofen (Baclofen 20 Mg Tablet) 40 mg PO BEDTIME [facility] Last Admin: 06/01/24 20:35 Dose: 40 mg Documented By: GABI Calcitriol (Calcitriol 0.25 Mcg Capsule) 0.25 mcg PO DAILY [facility] Last Admin: 06/02/24 08:10 Dose: Not Given Documented By: HUGH Non-Admin Reason: NPO Calcium Carbonate (Calcium Carbonate 750 Mg Tab.Chew) 750 mg PO Q4H PRN PRN Reason: Heartburn Dicyclomine HCl (Dicyclomine Hcl 10 Mg Capsule) 10 mg PO QID [facility] Last Admin: 06/02/24 08:10 Dose: Not Given Documented By: HUGH Non-Admin Reason: NPO Docusate Sodium (Docusate Sodium 100 Mg Capsule) 200 mg PO BEDTIME [facility] Last Admin: 06/01/24 20:35 Dose: 200 mg Documented By: GABI Fentanyl (Fentanyl Citrate/Pf 100 Mcg/2 Ml Vial) 25 mcg IVPUSH Q5M PRN PRN Reason: Pain, Moderate to Severe (Pain Scale 4-10) Stop: 06/02/24 15:53 Ferrous Sulfate (Ferrous Sulfate 324 Mg Tablet.Dr) 324 mg PO DAILY [facility] Last Admin: 06/02/24 08:11 Dose: Not Given Documented By: HUGH Non-Admin Reason: NPO Furosemide (Furosemide 20 Mg Tablet) 20 mg PO DAILY [facility]; Protocol Last Admin: 06/02/24 08:11 Dose: Not Given Documented By: HUGH Non-Admin Reason: NPO Gabapentin (Gabapentin 100 Mg Capsule) 100 mg PO BID@0800,1400 [facility] Last Admin: 06/02/24 08:10 Dose: Not Given Documented By: HUGH Non-Admin Reason: NPO Gabapentin (Gabapentin 600 Mg Tablet) 600 mg PO BEDTIME [facility] Last Admin: 06/01/24 20:35 Dose: 600 mg Documented By: GABI Guaifenesin (Guaifenesin La 600 Mg Tab.Er.12h) 1,200 mg PO BID [facility] Last Admin: 06/02/24 08:11 Dose: Not Given Documented By: HUGH Non-Admin Reason: NPO Guaifenesin/Dextromethorphan (Guaifenesin Dm 100/10/5 Ml 5 Ml Syrup) 5 ml PO Q4H PRN PRN Reason: Cough Last Admin: 06/01/24 08:39 Dose: 5 ml Documented By: CARLOTA Ampicillin Sodium/Sulbactam (Sodium 3 gm/ Sodium Chloride) 100 mls @ 200 mls/hr IV Q6H [facility] Last Infusion: 06/02/24 06:49 Dose: Infused Documented By: GABI Levothyroxine Sodium (Levothyroxine Sodium 112 Mcg Tablet) 112 mcg PO DAILY@0600 [facility] Last Admin: 06/02/24 06:13 Dose: Not Given Documented By: GABI Non-Admin Reason: NPO Levothyroxine Sodium (Levothyroxine Sodium 25 Mcg Tablet) 25 mcg PO DAILY@0600 [facility] Last Admin: 06/02/24 06:13 Dose: Not Given Documented By: GABI Non-Admin Reason: NPO Magnesium Hydroxide (Milk Of Magnesia 30 Ml Oral.Susp) 30 ml PO DAILY PRN PRN Reason: Constipation Melatonin (Melatonin 3 Mg Tablet) 6 mg PO BEDTIME PRN PRN Reason: Insomnia Midodrine (Midodrine Hcl 10 Mg Tablet) 10 mg PO TIDAC [facility] Last Admin: 06/02/24 08:10 Dose: Not Given Documented By: HUGH Non-Admin Reason: NPO Multivitamins/Vitamin C (Multivitamin Tablet) 1 tab PO DAILY [facility] Last Admin: 06/02/24 08:11 Dose: Not Given Documented By: HUGH Non-Admin Reason: NPO Naloxone HCl (Naloxone Hcl 0.4 Mg/Ml Vial) 0.04 mg IVPUSH Q5M PRN PRN Reason: Excessive sedation or RR < 8 Nystatin (Nystatin Powder 15 Gm Bottle) 1 appl TOPICAL BID [facility]; Protocol Last Admin: 06/02/24 08:44 Dose: 1 appl Documented By: HUGH Ondansetron HCl (Ondansetron Odt 4 Mg Tab.Rapdis) 4 mg TRANSLINGU ONCE PRN PRN Reason: Nausea and Vomiting Stop: 06/02/24 15:53 Oxybutynin Chloride (Oxybutynin Chloride Er 5 Mg Tab.Er.24) 10 mg PO DAILY [facility] Last Admin: 06/02/24 08:11 Dose: Not Given Documented By: HUGH Non-Admin Reason: NPO Senna (Sennosides 8.6 Mg Tablet) 8.6 mg PO DAILY PRN PRN Reason: Constipation Sodium Chloride (0.9 % Sodium Chloride Flush 3 Ml Syringe) 3 ml IVFLUSH QSHIFT [facility] Last Admin: 06/02/24 08:45 Dose: 3 ml Documented By: HUGH Tramadol HCl (Tramadol Hcl 50 Mg Tablet) 50 mg PO Q8H PRN PRN Reason: Pain, Moderate(Pain Scale 4-6) Trazodone HCl (Trazodone Hcl 25 Mg Halftab) 75 mg PO BEDTIME [facility] Last Admin: 06/01/24 20:35 Dose: 75 mg Documented By: GABI Labs 05/30/24 05:30 05/30/24 05:30 Microbiology Microbiology Results: Microbiology 05/29/24 Unknown Urine Culture - Final Urine Catheterized - [place] Catheter Pseudomonas aeruginosa Providencia rettgeri Assessment and Plan (1) UTI (urinary tract infection): Status: Acute (2) Pneumonia: Status: Acute (3) Hypoxia: Status: Acute Plan This is a 68-year-old male with a PMH significant for?paroxysmal AFib on Eliquis, paraplegia secondary to spinal cord injury, neurogenic bladder with chronic suprapubic catheter in place, recurrent UTIs, colostomy, pacemaker in place, hypothyroidism, chronic pain syndrome, and sacral decubitus ulcer who presents to the ED from [facility] with increased SOB, difficulty breathing, and non-productive cough since yesterday. Pt will be admitted to the hospital for treatment and further evaluation of acute hypoxic respiratory failure in the setting of community acquired pneumonia. Acute hypoxic respiratory failure with hypoxia due to pneumonia chest CT - worsening volume loss and consolidation throughout right lung suspicious for pneumonia Initially treated with ceftriaxone and azithromycin; we will transitioned to IV Unasyn to cover for any possible component of aspiration as per pulmonology recommendation Continue supplemental oxygen, wean as tolerated down to 5L oxymask continue mucomyst, mucinex, CPT seen by Pulmonary plan for bronchoscopy for secretion clearance today (06/02) Acute UTI due to suprapubic catheter history of recurrent UTIs. No sepsis urine culture growing Pseudomonas and Providencia - change to cefepime based on culture results ID consult pending pericardial effusion seen on CT - reported as similar to previous echo with small to moderate pericardial effusion - no significant change from prior study in december 2023 Chronic lower leg edema leg edema, chronic No hx of CHF, last echo 12/2023 no pulmonary edema on chest CT Continue baseline Lasix stage 3 (per notes from pervious admission) sacral decubitus ulcers. poa Follows with [facility] Wound care consult Patient positioning q.2h Hypotension, chronic Continue midodrine History of paraplegia with neuropathy Continue baclofen, gabapentin Paroxysmal AFib Not on rate control agent Continue Eliquis Hypothyroidism Continue levothyroxine Full Code DVT Prophylaxis: Eliquis equires ongoing inpatient stay for treatment of?acute hypoxic respiratory failure in the setting of pneumonia requiring IV antibiotics, supplemental oxygen, and breathing treatments, specialist evaluation and close monitoring of respiratory status Quality Stroke Does the patient have a stroke diagnosis?: No VTE Prior VTE?: No VTE Risk Level:: Medical - moderate - high VTE Device Contraindication: Treatment Not Indicated VTE Drug Contraindication: N/A - Med Ordered
[2024-06-02] MEDS: Baclofen 20 MG TABLET PO ×2 (11:45→18:11)
[2024-06-02] MEDS: cefEPime HCl 1 GM in 0.9 % Sodium Chloride 50 ML IV (11:46)
[2024-06-02] MEDS: Midodrine HCl 10 MG TABLET PO ×2 (11:46→16:11)
--- NOTE | 2024-06-02 12:45 | HO.SKINPHOTO ---
Pt on airloss bed, Q2 turn and reposition. Known to have chronic wounds, pictures as follows. Buttocks cleansed with NaCl, pat dried, triad paste and foam applied. Ulcerations to bilateral LE, cleansed with NaCl, pat dried, alginate applied to wound bed, abd, then gauze wrap. LE elevated on pillows. Wound care nurse consulted. Buttocks Buttocks Left lower extremity Left Heel Right lower extremity
[2024-06-02] MEDS: Gabapentin 100 MG CAPSULE PO (13:22)
[2024-06-02] MEDS: Dicyclomine HCl 10 MG CAPSULE PO ×2 (13:22→20:45)
[2024-06-02 15:15] LABS: Hematocrit 31.8 % (42.0-52.0); Hemoglobin 9.7 g/dl (14.0-18.0); Mean Corpuscular HGB Conc 30.5 g/dl (31.0-36.0); Mean Corpuscular Hemoglobin 28.5 pg (27.0-33.0); Mean Corpuscular Volume 93.5 fL (80.0-98.0); Platelet Count 243 X10*3/uL (160-400); Red Cell Distribution Width 16.2 % (11.0-16.0); White Blood Count 7.6 X10*3/uL (4.8-10.8)
[2024-06-02 15:27] LABS: Anion Gap 12 (12-20); Blood Urea Nitrogen 9 mg/dL (9-16); Calcium 8.1 mg/dL (8.4-10.2); Carbon Dioxide 35 mmol/L (22-29); Chloride 101 mmol/L (96-108); Creatinine Clr Calc Pharmacy 176.4; Estimated Glomerular Filt Rate > 60; Glucose Random 139 mg/dL (60-115); Potassium 3.6 mmol/L (3.3-5.1); Sodium 144 mmol/L (135-145)
[2024-06-02] MEDS: Doxycycline Hyclate 100 MG in 0.9 % Sodium Chloride 250 ML 166.67 MG IV (16:11)
--- NOTE | 2024-06-02 16:27 | PC.NURSE ---
ALESHA Brice made aware pt is having hematuria, Eliquis on hold.
[2024-06-02] MEDS: traZODone HCL 25 MG HALFTAB 75 MG PO (20:45)
[2024-06-02] MEDS: Gabapentin 600 MG TABLET PO (20:45)
[2024-06-02] MEDS: Docusate Sodium 100 MG CAPSULE 200 MG PO (20:45)
[2024-06-02] MEDS: guaiFENesin LA 600 MG TAB.ER.12H 1200 MG PO (20:46)
[2024-06-02] MEDS: Baclofen 20 MG TABLET 40 MG PO (20:47)
[2024-06-03] VITALS (12 sets, daily range): BP systolic 98–126; BP diastolic 58–85; PULSE 6–92; RESP 16–20; TEMP 36–36.9; O2SAT 90–98
[2024-06-03] MEDS: cefEPime HCl 1 GM in 0.9 % Sodium Chloride 50 ML IV ×3 (00:39→23:32)
--- NOTE | 2024-06-03 00:44 | W.PM.IDCN ---
History of Present Illness Data of Consult Service Date: 06/02/24 Requesting physician: Rosalva Brice Primary Care Provider: Yulia Mckeon MD HPI Reason for consult: pneumonia and UTI He presents with cough ,nonproductive from senior living over last week. He also reported hematuria doesnt usually have,suprapubic He has chronic pain,afib, wheelchair due to spinal cord problems. Urine pseudomonas and providencia. RLL pneumonia present. Review of Systems Review of Systems: Yes all other systems are reviewed and are negative [facility] Past Medical History Medical History Suprapubic catheter dysfunction Neurogenic bladder Quadriplegia, C5-C7 incomplete Atrial fibrillation Chronic restrictive lung disease Pneumonia Urine retention Irreducible left inguinal hernia Autonomic dysfunction Hypothyroidism Hernia Spasms of the hands or feet Spinal cord injury Family History Family History Sister Diabetes mellitus Family history: reviewed and not pertinent Surgical History Surgical History Chronic suprapubic catheter S/P tendon repair H/O hemorrhoidectomy S/P IVC filter H/O hernia repair H/O thyroidectomy Social History Social History Household Members: None Household Members Other:: senior living Housing: Group Home Housing Other:: senior living in [place] Do you presently have visiting nurse or other home services: No Alcohol intake: former Comment: pt paraplegic Patient Tobacco Use Status: Never used Tobacco Use of substances other than those prescribed or required for medical reasons: No Currently Displaying Signs/Symptoms of Drug Intoxication Withdrawal: No Advance Directives: Yes Advance Directives on File: Yes Advance Directives Date on File: 01/09/23 Do you have a plan to hurt others: No Plan service: No Meds Allergies Allergy/AdvReac Type Severity Reaction Status Date / Time dicloxacillin [From DYNAPEN] Allergy Unknown Unknown Verified 05/29/24 11:55 ofloxacin [From FLOXIN] AdvReac Intermediate Abdominal Verified 05/29/24 11:55 Pain penicillin V AdvReac Intermediate Abdominal Verified 05/29/24 11:55 Pain Active Medications: Current Medications Acetaminophen (Acetaminophen 325 Mg Tablet) 650 mg PO Q6H PRN PRN Reason: Pain, Mild 1-3,fever,headache Acetylcysteine (Acetylcysteine 10 % 400 Mg/4 Ml Vial) 200 mg INHALE RBID [facility] Last Admin: 06/02/24 19:49 Dose: 200 mg Albuterol Sulfate (Albuterol Sulfate (0.083%) 2.5 Mg/3 Ml Vial.Neb) 2.5 mg INHALE RBID [facility] Last Admin: 06/02/24 19:49 Dose: 2.5 mg Albuterol/Ipratropium (Albuterol/Iprat 2.5/0.5mg 3 Ml Ampul.Neb) 3 ml INHALE RQ4H WHILE AWAKE PRN PRN Reason: Shortness of Breath/Wheezing Last Admin: 06/01/24 00:38 Dose: 3 ml Apixaban (Apixaban 5 Mg Tablet) 5 mg PO BID [facility] Last Admin: 06/02/24 08:10 Dose: Not Given Ascorbic Acid (Ascorbic Acid 500 Mg Tablet) 500 mg PO DAILY [facility] Last Admin: 06/02/24 08:10 Dose: Not Given Baclofen (Baclofen 20 Mg Tablet) 20 mg PO TID@0700,1200,1900 [facility] Last Admin: 06/02/24 18:11 Dose: 20 mg Baclofen (Baclofen 20 Mg Tablet) 40 mg PO BEDTIME [facility] Last Admin: 06/02/24 20:47 Dose: 40 mg Calcitriol (Calcitriol 0.25 Mcg Capsule) 0.25 mcg PO DAILY [facility] Last Admin: 06/02/24 08:10 Dose: Not Given Calcium Carbonate (Calcium Carbonate 750 Mg Tab.Chew) 750 mg PO Q4H PRN PRN Reason: Heartburn Dicyclomine HCl (Dicyclomine Hcl 10 Mg Capsule) 10 mg PO QID [facility] Last Admin: 06/02/24 20:45 Dose: 10 mg Docusate Sodium (Docusate Sodium 100 Mg Capsule) 200 mg PO BEDTIME [facility] Last Admin: 06/02/24 20:45 Dose: 200 mg Ferrous Sulfate (Ferrous Sulfate 324 Mg Tablet.Dr) 324 mg PO DAILY [facility] Last Admin: 06/02/24 08:11 Dose: Not Given Furosemide (Furosemide 20 Mg Tablet) 20 mg PO DAILY [facility]; Protocol Last Admin: 06/02/24 08:11 Dose: Not Given Gabapentin (Gabapentin 100 Mg Capsule) 100 mg PO BID@0800,1400 [facility] Last Admin: 06/02/24 13:22 Dose: 100 mg Gabapentin (Gabapentin 600 Mg Tablet) 600 mg PO BEDTIME [facility] Last Admin: 06/02/24 20:45 Dose: 600 mg Guaifenesin (Guaifenesin La 600 Mg Tab.Er.12h) 1,200 mg PO BID [facility] Last Admin: 06/02/24 20:46 Dose: 1,200 mg Guaifenesin/Dextromethorphan (Guaifenesin Dm 100/10/5 Ml 5 Ml Syrup) 5 ml PO Q4H PRN PRN Reason: Cough Last Admin: 06/01/24 08:39 Dose: 5 ml Cefepime HCl 1 gm/ Sodium (Chloride) 50 mls @ 100 mls/hr IV Q12H [facility] Last Infusion: 06/02/24 12:22 Dose: Infused Doxycycline Hyclate 100 mg/ (Sodium Chloride) 250 mls @ 166.67 mls/hr IV Q12H [facility] Last Infusion: 06/02/24 17:57 Dose: Infused Levothyroxine Sodium (Levothyroxine Sodium 112 Mcg Tablet) 112 mcg PO DAILY@0600 [facility] Last Admin: 06/02/24 06:13 Dose: Not Given Levothyroxine Sodium (Levothyroxine Sodium 25 Mcg Tablet) 25 mcg PO DAILY@0600 [facility] Last Admin: 06/02/24 06:13 Dose: Not Given Magnesium Hydroxide (Milk Of Magnesia 30 Ml Oral.Susp) 30 ml PO DAILY PRN PRN Reason: Constipation Melatonin (Melatonin 3 Mg Tablet) 6 mg PO BEDTIME PRN PRN Reason: Insomnia Midodrine (Midodrine Hcl 10 Mg Tablet) 10 mg PO TIDAC [facility] Last Admin: 06/02/24 16:11 Dose: 10 mg Multivitamins/Vitamin C (Multivitamin Tablet) 1 tab PO DAILY [facility] Last Admin: 06/02/24 08:11 Dose: Not Given Naloxone HCl (Naloxone Hcl 0.4 Mg/Ml Vial) 0.04 mg IVPUSH Q5M PRN PRN Reason: Excessive sedation or RR < 8 Nystatin (Nystatin Powder 15 Gm Bottle) 1 appl TOPICAL BID [facility]; Protocol Last Admin: 06/02/24 20:49 Dose: 1 appl Oxybutynin Chloride (Oxybutynin Chloride Er 5 Mg Tab.Er.24) 10 mg PO DAILY [facility] Last Admin: 06/02/24 08:11 Dose: Not Given Senna (Sennosides 8.6 Mg Tablet) 8.6 mg PO DAILY PRN PRN Reason: Constipation Sodium Chloride (0.9 % Sodium Chloride Flush 3 Ml Syringe) 3 ml IVFLUSH QSHIFT [facility] Last Admin: 06/02/24 20:50 Dose: 3 ml Tramadol HCl (Tramadol Hcl 50 Mg Tablet) 50 mg PO Q8H PRN PRN Reason: Pain, Moderate(Pain Scale 4-6) Trazodone HCl (Trazodone Hcl 25 Mg Halftab) 75 mg PO BEDTIME [facility] Last Admin: 06/02/24 20:45 Dose: 75 mg Home Medications ?Medication ?Instructions ?Recorded ?Confirmed ?Last Taken ?Type ascorbic acid (vitamin C) 500 mg 500 mg PO DAILY 03/23/20 05/29/24 03/23/20 History tablet calcitriol 0.25 mcg capsule 0.25 mcg PO DAILY 03/23/20 05/29/24 03/23/20 History docusate sodium 100 mg capsule 200 mg PO BEDTIME 03/23/20 05/29/24 03/23/20 History (Colace) cholecalciferol (vitamin D3) 1,250 1,250 mcg PO QMONTH 01/09/23 05/29/24 11/23/23 History mcg (50,000 unit) tablet dicyclomine 10 mg capsule 10 mg PO QID 01/09/23 05/29/24 Unknown History furosemide 20 mg tablet 20 mg PO DAILY 01/09/23 05/29/24 Unknown History gabapentin 100 mg capsule 100 mg PO BID@0800,1400 01/09/23 05/29/24 Unknown History gabapentin 600 mg tablet 600 mg PO BEDTIME 01/09/23 05/29/24 Unknown History melatonin 10 mg tablet 10 mg PO BEDTIME Sleep 01/09/23 05/29/24 Unknown History midodrine 10 mg tablet 10 mg PO TIDAC 01/09/23 05/29/24 Unknown History acetaminophen 325 mg tablet 650 mg PO Q6H PRN 11/26/23 05/29/24 Unknown History headache/fever/bodyaches nystatin 100,000 unit/gram topical 1 appl topical BID Rash 11/26/23 05/29/24 Unknown History powder (Nyamyc) trazodone 150 mg tablet 75 mg PO BEDTIME 11/26/23 05/29/24 Unknown History ferrous sulfate 325 mg (65 mg 325 mg PO DAILY 12/04/23 05/29/24 Unknown History iron) tablet (FeroSul) miconazole nitrate 2 % topical 1 appl topical BID PRN fungal rash 12/04/23 05/29/24 Unknown History cream sennosides 8.6 mg tablet (senna) 8.6 mg PO DAILY PRN Constipation 12/04/23 05/29/24 Unknown History apixaban 5 mg tablet (Eliquis) 5 mg PO BID 04/29/24 05/29/24 Unknown History baclofen 20 mg tablet 20 mg PO TID@0700,1200,1900 05/29/24 05/29/24 Unknown History baclofen 20 mg tablet 40 mg PO BEDTIME 05/29/24 05/29/24 Unknown History levothyroxine 137 mcg tablet 137 mcg PO DAILY@0630 05/29/24 05/29/24 Unknown History [id number] 1 tab PO DAILY 05/29/24 05/29/24 Unknown History fumarate 19 mg-folic acid 400 mcg tablet (Thera-M) nystatin 100,000 unit/gram topical 1 appl topical BID 05/29/24 05/29/24 Unknown History cream Physical Exam Vital Signs: Vital Signs: Last Vital Signs Temp 97.2 F 06/02/24 23:34 Pulse 62 06/02/24 23:34 Resp 20 06/02/24 23:34 BP 116/60 06/02/24 23:34 Pulse Ox 96 06/02/24 23:34 O2 Del Method Room Air 06/02/24 23:34 O2 Flow Rate 3 06/02/24 19:59 Oxygen Flow Rate 4 05/29/24 11:52 BMI result Body Mass Index 35.1 Const: General: cooperative HEENT: Head: Yes normal to inspection Face and sinus: Yes normal facial exam Mouth: Normal oral and palatal mucosa present Teeth and gingiva: dentition normal Eyes: General: appearance normal, both eyes and all related structures Pupils: Equal, round and reactive pupils present Resp: Effort & Inspection: normal respiratory effort Cardio: Rate: regular rate Rhythm: regular rhythm GI: Palpation (GI): Soft to palpation and nontender : Other: [place] bag with hematuria General: Yes no CVA tenderness Back/Spine/Pelvis: Back: no CVA tenderness Skin: General skin exam: no rashes or lesions noted Neuro: General: moves all extremities Cranial nerves: Yes Equal, round and reactive pupils present Extrem: Other: weakness lower extremities Psych: Appearance: grossly normal Results Labs 06/02/24 14:48 06/02/24 14:48 Labs: Short CBC 06/02/24 Range/Units 14:48 WBC 7.6 (4.8-10.8) X10*3/uL Hgb 9.7 L (14.0-18.0) g/dl Hct 31.8 L (42.0-52.0) % Plt Count 243 (160-400) X10*3/uL BMP 06/02/24 14:48 Sodium 144 Potassium 3.6 Chloride 101 Carbon Dioxide 35 H BUN 9 Creatinine 0.60 Calcium 8.1 L Microbiology Microbiology Results: Microbiology 06/02/24 11:00 Bronchial Washings Gram Stain - Final 05/29/24 Unknown Urine Catheterized - [place] Catheter Urine Culture - Final Pseudomonas aeruginosa Providencia rettgeri 05/29/24 12:41 Blood - Venous Blood Culture - Preliminary No growth after 48 hours. 05/29/24 12:41 Blood - Venous Blood Culture - Preliminary No growth after 48 hours. Assessment and Plan (1) UTI (urinary tract infection): Status: Acute (2) Pneumonia: Status: Acute (3) Hypoxia: Status: Acute Plan Cefepime for 10 days ,also Doxycycline can be po.
[2024-06-03] MEDS: guaiFENesin DM 100/10/5 ML 5 ML SYRUP PO (00:48)
[2024-06-03] MEDS: Doxycycline Hyclate 100 MG in 0.9 % Sodium Chloride 250 ML 166.67 MG IV (03:27)
[2024-06-03] MEDS: Levothyroxine Sodium 25 MCG TABLET PO (06:10)
[2024-06-03] MEDS: Levothyroxine Sodium 112 MCG TABLET PO (06:10)
[2024-06-03] MEDS: Baclofen 20 MG TABLET PO ×3 (06:10→18:37)
[2024-06-03 06:58] LABS: Hematocrit 30.3 % (42.0-52.0); Hemoglobin 9.1 g/dl (14.0-18.0); Mean Corpuscular Hemoglobin 28.1 pg (27.0-33.0); Mean Corpuscular Volume 93.5 fL (80.0-98.0); Mean Platelet Volume 9.1 fL (9.4-12.4); Platelet Count 271 X10*3/uL (160-400); Red Blood Count 3.24 X10*6/uL (4.60-5.80); Red Cell Distribution Width 16.1 % (11.0-16.0); White Blood Count 6.7 X10*3/uL (4.8-10.8)
[2024-06-03] MEDS: Albuterol Sulfate (0.083%) 2.5 MG/3 ML VIAL.NEB INHALE ×2 (08:19→20:13)
[2024-06-03] MEDS: Acetylcysteine 10 % 400 MG/4 ML VIAL 200 MG INHALE ×2 (08:19→20:12)
[2024-06-03] MEDS: Midodrine HCl 10 MG TABLET PO ×3 (08:54→17:15)
[2024-06-03] MEDS: Ascorbic Acid 500 MG TABLET PO (08:54)
[2024-06-03] MEDS: Gabapentin 100 MG CAPSULE PO ×2 (08:54→15:16)
[2024-06-03] MEDS: guaiFENesin LA 600 MG TAB.ER.12H 1200 MG PO ×2 (08:54→20:42)
[2024-06-03] MEDS: Furosemide 20 MG TABLET PO (08:54)
[2024-06-03] MEDS: Ferrous Sulfate 324 MG TABLET.DR PO (08:55)
[2024-06-03] MEDS: calcitrioL 0.25 MCG CAPSULE PO (08:55)
[2024-06-03] MEDS: Multivitamin TABLET 1 TAB PO (08:55)
[2024-06-03] MEDS: Dicyclomine HCl 10 MG CAPSULE PO ×4 (08:55→20:42)
[2024-06-03] MEDS: 0.9 % Sodium Chloride Flush 3 ML SYRINGE IVFLUSH ×3 (08:56→23:35)
[2024-06-03] MEDS: Nystatin Powder 15 GM BOTTLE 1 APPL TOPICAL ×2 (08:56→20:45)
[2024-06-03 10:43] LABS: Adenovirus PCR Not Detected (Not Detect.); Bordetella parapertussis PCR Not Detected (Not Detect.); Bordetella pertussis PCR Not Detected (Not Detect.); Chlamydia pneumoniae PCR Not Detected (Not Detect.); Coronavirus 229E PCR Not Detected (Not Detect.); Coronavirus HKU1 PCR Not Detected (Not Detect.); Coronavirus NL63 PCR Not Detected (Not Detect.); Coronavirus OC43 PCR Not Detected (Not Detect.); Human metapneumovirus PCR Not Detected (Not Detect.); Influenza A PCR Not Detected (Not Detect.); Influenza B PCR Not Detected (Not Detect.); Mycoplasma pneumoniae PCR Not Detected (Not Detect.); Parainfluenza 1 PCR Not Detected (Not Detect.); Parainfluenza 2 PCR Not Detected (Not Detect.); Parainfluenza 3 PCR Not Detected (Not Detect.); Parainfluenza 4 PCR Not Detected (Not Detect.); RSV PCR Not Detected (Not Detect.); Rhino/Enterovirus PCR Detected (Not Detect.)
[2024-06-03 10:53] LABS: SARS-CoV-2 PCR Not Detected (Not Detect.)
--- NOTE | 2024-06-03 11:53 | PC.RT ---
RT placed pt to aerosol mask at 10L to assist with the secretion clearance.
--- NOTE | 2024-06-03 12:57 | HO.PM.IMPN ---
Subjective Subjective Date of Service: 06/03/24 Interval History: seen and examined this morning follow up for pneumonia doing better with secretion, no sob s/p bronchoscpy yesterday Physical Exam Vital Signs: Vital Signs: Last Vital Signs Temp 97.8 F 06/03/24 12:00 Pulse 92 06/03/24 12:00 Resp 18 06/03/24 12:00 BP 117/63 06/03/24 12:00 Pulse Ox 90 L 06/03/24 12:00 O2 Del Method Oxymask 06/03/24 12:00 O2 Flow Rate 10.0 06/03/24 12:00 Oxygen Flow Rate 3 06/03/24 08:10 BMI result Body Mass Index 35.1 Const: General: cooperative HEENT: Face and sinus: Yes normal facial exam Mouth: Normal oral and palatal mucosa present Teeth and gingiva: dentition normal Eyes: General: appearance normal, both eyes and all related structures Pupils: Equal, round and reactive pupils present Resp: Effort & Inspection: normal respiratory effort Cardio: Rate: regular rate Rhythm: regular rhythm GI: Palpation (GI): Soft to palpation and nontender : Other: [place] bag with hematuria General: Yes no CVA tenderness Back/Spine/Pelvis: Back: no CVA tenderness Skin: General skin exam: no rashes or lesions noted Neuro: General: moves all extremities Cranial nerves: Yes Equal, round and reactive pupils present Extrem: Other: weakness lower extremities Objective Data Active Medications Acetaminophen (Acetaminophen 325 Mg Tablet) 650 mg PO Q6H PRN PRN Reason: Pain, Mild 1-3,fever,headache Acetylcysteine (Acetylcysteine 10 % 400 Mg/4 Ml Vial) 200 mg INHALE ID [facility] Last Admin: 06/03/24 08:19 Dose: 200 mg Documented By: JOLENE Albuterol Sulfate (Albuterol Sulfate (0.083%) 2.5 Mg/3 Ml Vial.Neb) 2.5 mg INHALE ID [facility] Last Admin: 06/03/24 08:19 Dose: 2.5 mg Documented By: JOLENE Albuterol/Ipratropium (Albuterol/Iprat 2.5/0.5mg 3 Ml Ampul.Neb) 3 ml INHALE RQ4H WHILE AWAKE PRN PRN Reason: Shortness of Breath/Wheezing Last Admin: 06/01/24 00:38 Dose: 3 ml Documented By: JUSTIN Apixaban (Apixaban 5 Mg Tablet) 5 mg PO BID [facility] Last Admin: 06/02/24 08:10 Dose: Not Given Documented By: HUGH Non-Admin Reason: NPO Ascorbic Acid (Ascorbic Acid 500 Mg Tablet) 500 mg PO DAILY [facility] Last Admin: 06/03/24 08:54 Dose: 500 mg Documented By: SHAHZAD Baclofen (Baclofen 20 Mg Tablet) 20 mg PO TID@0700,1200,1900 [facility] Last Admin: 06/03/24 11:57 Dose: 20 mg Documented By: SHAHZAD Baclofen (Baclofen 20 Mg Tablet) 40 mg PO BEDTIME [facility] Last Admin: 06/02/24 20:47 Dose: 40 mg Documented By: ONESIMO Calcitriol (Calcitriol 0.25 Mcg Capsule) 0.25 mcg PO DAILY [facility] Last Admin: 06/03/24 08:55 Dose: 0.25 mcg Documented By: SHAHZAD Calcium Carbonate (Calcium Carbonate 750 Mg Tab.Chew) 750 mg PO Q4H PRN PRN Reason: Heartburn Dicyclomine HCl (Dicyclomine Hcl 10 Mg Capsule) 10 mg PO QID [facility] Last Admin: 06/03/24 11:57 Dose: 10 mg Documented By: SHAHZAD Docusate Sodium (Docusate Sodium 100 Mg Capsule) 200 mg PO BEDTIME [facility] Last Admin: 06/02/24 20:45 Dose: 200 mg Documented By: ONESIMO Doxycycline Monohydrate (Doxycycline Monohydrate 100 Mg Capsule) 100 mg PO Q12H [facility] Ferrous Sulfate (Ferrous Sulfate 324 Mg Tablet.Dr) 324 mg PO DAILY [facility] Last Admin: 06/03/24 08:55 Dose: 324 mg Documented By: SHAHZAD Furosemide (Furosemide 20 Mg Tablet) 20 mg PO DAILY [facility]; Protocol Last Admin: 06/03/24 08:54 Dose: 20 mg Documented By: SHAHZAD Gabapentin (Gabapentin 100 Mg Capsule) 100 mg PO BID@0800,1400 [facility] Last Admin: 06/03/24 08:54 Dose: 100 mg Documented By: SHAHZAD Gabapentin (Gabapentin 600 Mg Tablet) 600 mg PO BEDTIME [facility] Last Admin: 06/02/24 20:45 Dose: 600 mg Documented By: ONESIMO Guaifenesin (Guaifenesin La 600 Mg Tab.Er.12h) 1,200 mg PO BID [facility] Last Admin: 06/03/24 08:54 Dose: 1,200 mg Documented By: SHAHZAD Guaifenesin/Dextromethorphan (Guaifenesin Dm 100/10/5 Ml 5 Ml Syrup) 5 ml PO Q4H PRN PRN Reason: Cough Last Admin: 06/03/24 00:48 Dose: 5 ml Documented By: ONESIMO Cefepime HCl 1 gm/ Sodium (Chloride) 50 mls @ 100 mls/hr IV Q12H [facility] Last Infusion: 06/03/24 12:35 Dose: Infused Documented By: SHAHZAD Levothyroxine Sodium (Levothyroxine Sodium 112 Mcg Tablet) 112 mcg PO DAILY@0600 [facility] Last Admin: 06/03/24 06:10 Dose: 112 mcg Documented By: ONESIMO Levothyroxine Sodium (Levothyroxine Sodium 25 Mcg Tablet) 25 mcg PO DAILY@0600 [facility] Last Admin: 06/03/24 06:10 Dose: 25 mcg Documented By: ONESIMO Magnesium Hydroxide (Milk Of Magnesia 30 Ml Oral.Susp) 30 ml PO DAILY PRN PRN Reason: Constipation Melatonin (Melatonin 3 Mg Tablet) 6 mg PO BEDTIME PRN PRN Reason: Insomnia Midodrine (Midodrine Hcl 10 Mg Tablet) 10 mg PO TIDAC [facility] Last Admin: 06/03/24 11:57 Dose: 10 mg Documented By: SHAHZAD Multivitamins/Vitamin C (Multivitamin Tablet) 1 tab PO DAILY [facility] Last Admin: 06/03/24 08:55 Dose: 1 tab Documented By: SHAHZAD Naloxone HCl (Naloxone Hcl 0.4 Mg/Ml Vial) 0.04 mg IVPUSH Q5M PRN PRN Reason: Excessive sedation or RR < 8 Nystatin (Nystatin Powder 15 Gm Bottle) 1 appl TOPICAL BID [facility]; Protocol Last Admin: 06/03/24 08:56 Dose: 1 appl Documented By: SHAHZAD Oxybutynin Chloride (Oxybutynin Chloride Er 5 Mg Tab.Er.24) 10 mg PO DAILY [facility] Last Admin: 06/03/24 08:55 Dose: Not Given Documented By: SHAHZAD Non-Admin Reason: Unable to Scan Barcode Senna (Sennosides 8.6 Mg Tablet) 8.6 mg PO DAILY PRN PRN Reason: Constipation Sodium Chloride (0.9 % Sodium Chloride Flush 3 Ml Syringe) 3 ml IVFLUSH QSHIFT [facility] Last Admin: 06/03/24 08:56 Dose: 3 ml Documented By: SHAHZAD Tramadol HCl (Tramadol Hcl 50 Mg Tablet) 50 mg PO Q8H PRN PRN Reason: Pain, Moderate(Pain Scale 4-6) Trazodone HCl (Trazodone Hcl 25 Mg Halftab) 75 mg PO BEDTIME [facility] Last Admin: 06/02/24 20:45 Dose: 75 mg Documented By: ONESIMO Labs 06/03/24 06:19 06/02/24 14:48 Labs: Laboratory Results - last 24 hr 06/02/24 06/02/24 06/03/24 14:48 15:44 06:19 MCV 93.5 93.5 MCH 28.5 28.1 MCHC 30.5 L 30.0 L RDW 16.2 H 16.1 H Plt Count 243 271 MPV 9.0 L 9.1 L Absolute Nucleated RBC 0.000 0.000 Nucleated RBC % (auto) 0.0 0.0 Anion Gap 12 Estim Creat Clear Calc 176.4 Estimated GFR > 60 Random Glucose 139 H Calcium 8.1 L Respiratory Panel [place] See Note Adenovirus (Rapid PCR) Not Detected B.pert (TEM-PCR) Not Detected B.parapertussis DNA PCR Not Detected C. pneumoniae DNA (PCR) Not Detected Coronavirus OC43 (PCR) Not Detected Coronavirus HKU1 (PCR) Not Detected Coronavirus 229E (PCR) Not Detected Coronavirus NL63 (PCR) Not Detected Human Metapneumovir PCR Not Detected Influenza A (RT-PCR) Not Detected Influenza B (RT-PCR) Not Detected M. pneumoniae (PCR) Not Detected Parainfluenza 1 (PCR) Not Detected Parainfluenza 2 (PCR) Not Detected Parainfluenza 3 (PCR) Not Detected Parainfluenza 4 (PCR) Not Detected RSV (PCR) Not Detected Entero/Rhino (PCR) Detected A SARS-CoV-2 RNA (RT-PCR) Not Detected Microbiology Microbiology Results: Microbiology 06/02/24 11:00 Gram Stain - Final Bronchial Washings Routine Culture - Preliminary Culture in progress. Assessment and Plan (1) UTI (urinary tract infection): Status: Acute (2) Pneumonia: Status: Acute (3) Hypoxia: Status: Acute Plan This is a 68-year-old male with a PMH significant for?paroxysmal AFib on Eliquis, paraplegia secondary to spinal cord injury, neurogenic bladder with chronic suprapubic catheter in place, recurrent UTIs, colostomy, pacemaker in place, hypothyroidism, chronic pain syndrome, and sacral decubitus ulcer who presents to the ED from long-term with increased SOB, difficulty breathing, and non-productive cough since yesterday. Pt will be admitted to the hospital for treatment and further evaluation of acute hypoxic respiratory failure in the setting of community acquired pneumonia. Acute hypoxic respiratory failure with hypoxia due to pneumonia chest CT - worsening volume loss and consolidation throughout right lung suspicious for pneumonia Initially treated with ceftriaxone and azithromycin; now on Cefepime and Doxy Continue supplemental oxygen, wean as tolerated preent 90 on rooma continue mucomyst, mucinex, CPT Had bronchoscopy with clearance of mucous on 06/02 Acute UTI due to suprapubic catheter history of recurrent UTIs. No sepsis urine culture growing Pseudomonas and Providencia - Cefepime and Doxy x 10 per ID, getting midline pericardial effusion seen on CT - reported as similar to previous echo with small to moderate pericardial effusion - no significant change from prior study in december 2023 Chronic lower leg edema leg edema, chronic No hx of CHF, last echo 12/2023 no pulmonary edema on chest CT Continue baseline Lasix stage 3 (per notes from pervious admission) sacral decubitus ulcers. poa [facility] with [facility] Wound care consult Patient positioning q.2h Hypotension, chronic, not due to sepsis Continue midodrine History of paraplegia with neuropathy Continue baclofen, gabapentin Paroxysmal AFib Not on rate control agent Continue Eliquis Hypothyroidism Continue levothyroxine Full Code DVT Prophylaxis: Eliquis equires ongoing inpatient stay for treatment of?acute hypoxic respiratory failure in the setting of pneumonia requiring IV antibiotics, supplemental oxygen, and breathing treatments, specialist evaluation and close monitoring of respiratory status Quality Stroke Does the patient have a stroke diagnosis?: No VTE Prior VTE?: No VTE Risk Level:: Medical - moderate - high VTE Device Contraindication: Treatment Not Indicated VTE Drug Contraindication: N/A - Med Ordered
[2024-06-03] MEDS: Doxycycline Monohydrate 100 MG CAPSULE PO (15:16)
--- NOTE | 2024-06-03 15:16 | MHC.CLN ---
F/U PT WITH INCREASED NUTRITION RISK R/T PRESSURE INJURY. DIET=REGULAR. PO INTAKE 50-100%. ENSURE MAX BID (300 KCALS, 60 G PROTEIN) TO PROMOTE WOUND HEALING. MONITOR PO INTAKE AND ENCOURAGE SUPPLEMENT.
--- NOTE | 2024-06-03 15:27 | MHC.CM.PN ---
PT NOT YET MEDICALLY CLEARED DCP: [facility] RN: BILL [phone]
[2024-06-03] MEDS: Gabapentin 600 MG TABLET PO (20:42)
[2024-06-03] MEDS: Baclofen 20 MG TABLET 40 MG PO (20:42)
[2024-06-03] MEDS: Docusate Sodium 100 MG CAPSULE 200 MG PO (20:42)
[2024-06-03] MEDS: traZODone HCL 25 MG HALFTAB 75 MG PO (20:42)
[2024-06-04] VITALS (11 sets, daily range): BP systolic 101–174; BP diastolic 55–87; PULSE 59–82; RESP 15–22; TEMP 36.1–36.8; O2SAT 92–97
[2024-06-04] MEDS: guaiFENesin DM 100/10/5 ML 5 ML SYRUP PO ×2 (02:56→22:27)
[2024-06-04] MEDS: Doxycycline Monohydrate 100 MG CAPSULE PO ×2 (02:56→15:42)
[2024-06-04] MEDS: Levothyroxine Sodium 25 MCG TABLET PO (06:01)
[2024-06-04] MEDS: Baclofen 20 MG TABLET PO ×3 (06:01→17:59)
[2024-06-04] MEDS: Levothyroxine Sodium 112 MCG TABLET PO (06:01)
[2024-06-04] MEDS: Albuterol Sulfate (0.083%) 2.5 MG/3 ML VIAL.NEB INHALE ×2 (06:59→20:57)
[2024-06-04] MEDS: Acetylcysteine 10 % 400 MG/4 ML VIAL 200 MG INHALE ×2 (07:00→20:57)
[2024-06-04] MEDS: guaiFENesin LA 600 MG TAB.ER.12H 1200 MG PO ×2 (08:44→20:34)
[2024-06-04] MEDS: Ascorbic Acid 500 MG TABLET PO (08:44)
[2024-06-04] MEDS: Dicyclomine HCl 10 MG CAPSULE PO ×4 (08:44→20:35)
[2024-06-04] MEDS: Midodrine HCl 10 MG TABLET PO ×2 (08:44→12:24)
[2024-06-04] MEDS: Ferrous Sulfate 324 MG TABLET.DR PO (08:44)
[2024-06-04] MEDS: Multivitamin TABLET 1 TAB PO (08:44)
[2024-06-04] MEDS: Gabapentin 100 MG CAPSULE PO ×2 (08:45→15:42)
[2024-06-04] MEDS: oxyBUTYnin chloride ER 5 MG TAB.ER.24 10 MG PO (08:45)
[2024-06-04] MEDS: 0.9 % Sodium Chloride Flush 3 ML SYRINGE IVFLUSH ×3 (08:45→22:29)
[2024-06-04] MEDS: Furosemide 20 MG TABLET PO (08:45)
[2024-06-04] MEDS: calcitrioL 0.25 MCG CAPSULE PO (08:45)
--- NOTE | 2024-06-04 10:35 | PC.RT ---
RT called to bedside for pt low O2 sats with audible rhonchi. RT attempted NT suction x3 w/o success due to pt agitation. Pt coached through procedure and informed of the benefits versus risks, pt refuses further attempts of suctioning. This am, pt was given albuterol and mucomyst neb tx. RT utilized cough assist and flutter valve for CPT. Pt has strong cough, however is dry and unable to expectorate. Pt on aerosol mask for humidification however keeps pulling it off and SATs drop to 70'2 per RN. RT placed pt on NC w/ humidification bottle. Dr. Gonzalez informed of pt condition and inability to suction.
--- NOTE | 2024-06-04 10:57 | P.PNIM_ITS ---
Subjective Subjective Date of Service: 06/04/24 Interval History: seen and examined this morning follow up for pneumonia and difficulty managing secreations s/p bronch on 06/02, sounds wet and not trouble managing secretion and not tolerating suctioning Physical Exam 2 Vital Signs: Vital Signs: Last Vital Signs Temp 97.3 F 06/04/24 08:00 Pulse 62 06/04/24 08:00 Resp 18 06/04/24 08:00 BP 115/55 L 06/04/24 08:00 Pulse Ox 94 06/04/24 08:00 O2 Del Method Oxymask 06/04/24 08:00 O2 Flow Rate 8.0 06/04/24 08:00 Oxygen Flow Rate 3 06/03/24 08:10 BMI result Body Mass Index 35.1 Const: General: cooperative HEENT: Face and sinus: Yes normal facial exam Mouth: Normal oral and palatal mucosa present Teeth and gingiva: dentition normal Eyes: General: appearance normal, both eyes and all related structures P upils: Equal, round and reactive pupils present Resp: Effort & Inspection: normal respiratory effort Cardio: Rate: regular rate Rhythm: regular rhythm GI: Palpation (GI): Soft to palpation and nontender : Other: [place] bag with hematuria General: Yes no CVA tenderness Back/Spine/Pelvis: Back: no CVA tenderness Skin: General skin exam: no rashes or lesions noted Neuro: General: moves all extremities Cranial nerves: Yes Equal, round and reactive pupils present Extrem: Other: weakness lower extremities Objective Data Active Medications Acetaminophen (Acetaminophen 325 Mg Tablet) 650 mg PO Q6H PRN PRN Reason: Pain, Mild 1-3,fever,headache Acetylcysteine (Acetylcysteine 10 % 400 Mg/4 Ml Vial) 200 mg INHALE ID [facility] Last Admin: 06/04/24 07:00 Dose: 200 mg Documented By: YUSRA Albuterol Sulfate (Albuterol Sulfate (0.083%) 2.5 Mg/3 Ml Vial.Neb) 2.5 mg INHALE ID [facility] Last Admin: 06/04/24 06:59 Dose: 2.5 mg Documented By: YUSRA Albuterol/Ipratropium (Albuterol/Iprat 2.5/0.5mg 3 Ml Ampul.Neb) 3 ml INHALE RQ4H WHILE AWAKE PRN PRN Reason: Shortness of Breath/Wheezing Last Admin: 06/01/24 00:38 Dose: 3 ml Documented By: JUSTIN Apixaban (Apixaban 5 Mg Tablet) 5 mg PO BID [facility] Last Admin: 06/02/24 08:10 Dose: Not Given Documented By: HUGH Non-Admin Reason: NPO Ascorbic Acid (Ascorbic Acid 500 Mg Tablet) 500 mg PO DAILY [facility] Last Admin: 06/04/24 08:44 Dose: 500 mg Documented By: SIDNEY Baclofen (Baclofen 20 Mg Tablet) 20 mg PO TID@0700,1200,1900 [facility] Last Admin: 06/04/24 06:01 Dose: 20 mg Documented By: ONESIMO Baclofen (Baclofen 20 Mg Tablet) 40 mg PO BEDTIME [facility] Last Admin: 06/03/24 20:42 Dose: 40 mg Documented By: ONESIMO Calcitriol (Calcitriol 0.25 Mcg Capsule) 0.25 mcg PO DAILY [facility] Last Admin: 06/04/24 08:45 Dose: 0.25 mcg Documented By: SIDNEY Calcium Carbonate (Calcium Carbonate 750 Mg Tab.Chew) 750 mg PO Q4H PRN PRN Reason: Heartburn Dicyclomine HCl (Dicyclomine Hcl 10 Mg Capsule) 10 mg PO QID [facility] Last Admin: 06/04/24 08:44 Dose: 10 mg Documented By: SIDNEY Docusate Sodium (Docusate Sodium 100 Mg Capsule) 200 mg PO BEDTIME [facility] Last Admin: 06/03/24 20:42 Dose: 200 mg Documented By: ONESIMO Doxycycline Monohydrate (Doxycycline Monohydrate 100 Mg Capsule) 100 mg PO Q12H [facility] Last Admin: 06/04/24 02:56 Dose: 100 mg Documented By: ONESIMO Ferrous Sulfate (Ferrous Sulfate 324 Mg Tablet.Dr) 324 mg PO DAILY [facility] Last Admin: 06/04/24 08:44 Dose: 324 mg Documented By: SIDNEY Furosemide (Furosemide 20 Mg Tablet) 20 mg PO DAILY [facility]; Protocol Last Admin: 06/04/24 08:45 Dose: 20 mg Documented By: SIDNEY Gabapentin (Gabapentin 100 Mg Capsule) 100 mg PO BID@0800,1400 [facility] Last Admin: 06/04/24 08:45 Dose: 100 mg Documented By: SIDNEY Gabapentin (Gabapentin 600 Mg Tablet) 600 mg PO BEDTIME [facility] Last Admin: 06/03/24 20:42 Dose: 600 mg Documented By: ONESIMO Guaifenesin (Guaifenesin La 600 Mg Tab.Er.12h) 1,200 mg PO BID [facility] Last Admin: 06/04/24 08:44 Dose: 1,200 mg Documented By: SIDNEY Guaifenesin/Dextromethorphan (Guaifenesin Dm 100/10/5 Ml 5 Ml Syrup) 5 ml PO Q4H PRN PRN Reason: Cough Last Admin: 06/04/24 02:56 Dose: 5 ml Documented By: ONESIMO Cefepime HCl 1 gm/ Sodium (Chloride) 50 mls @ 100 mls/hr IV Q12H [facility] Last Infusion: 06/04/24 00:02 Dose: Infused Documented By: ONESIMO Levothyroxine Sodium (Levothyroxine Sodium 112 Mcg Tablet) 112 mcg PO DAILY@0600 [facility] Last Admin: 06/04/24 06:01 Dose: 112 mcg Documented By: ONESIMO Levothyroxine Sodium (Levothyroxine Sodium 25 Mcg Tablet) 25 mcg PO DAILY@0600 [facility] Last Admin: 06/04/24 06:01 Dose: 25 mcg Documented By: ONESIMO Magnesium Hydroxide (Milk Of Magnesia 30 Ml Oral.Susp) 30 ml PO DAILY PRN PRN Reason: Constipation Melatonin (Melatonin 3 Mg Tablet) 6 mg PO BEDTIME PRN PRN Reason: Insomnia Midodrine (Midodrine Hcl 10 Mg Tablet) 10 mg PO TIDAC [facility] Last Admin: 06/04/24 08:44 Dose: 10 mg Documented By: SIDNEY Multivitamins/Vitamin C (Multivitamin Tablet) 1 tab PO DAILY [facility] Last Admin: 06/04/24 08:44 Dose: 1 tab Documented By: SIDNEY Naloxone HCl (Naloxone Hcl 0.4 Mg/Ml Vial) 0.04 mg IVPUSH Q5M PRN PRN Reason: Excessive sedation or RR < 8 Nystatin (Nystatin Powder 15 Gm Bottle) 1 appl TOPICAL BID [facility]; Protocol Last Admin: 06/03/24 20:45 Dose: 1 appl Documented By: ONESIMO Oxybutynin Chloride (Oxybutynin Chloride Er 5 Mg Tab.Er.24) 10 mg PO DAILY [facility] Last Admin: 06/04/24 08:45 Dose: 10 mg Documented By: SIDNEY Senna (Sennosides 8.6 Mg Tablet) 8.6 mg PO DAILY PRN PRN Reason: Constipation Sodium Chloride (0.9 % Sodium Chloride Flush 3 Ml Syringe) 3 ml IVFLUSH QSHIFT [facility] Last Admin: 06/04/24 08:45 Dose: 3 ml Documented By: SIDNEY Trazodone HCl (Trazodone Hcl 25 Mg Halftab) 75 mg PO BEDTIME [facility] Last Admin: 06/03/24 20:42 Dose: 75 mg Documented By: ONESIMO Labs 06/03/24 06:19 06/02/24 14:48 Microbiology Microbiology Results: Microbiology 05/29/24 12:41 Blood Culture - Final Blood - Venous No growth after 5 days. 05/29/24 12:41 Blood Culture - Final Blood - Venous No growth after 5 days. 06/02/24 11:00 Gram Stain - Final Bronchial Washings Routine Culture - Preliminary Culture in progress. Assessment and Plan (1) UTI (urinary tract infection): Status: Acute (2) Pneumonia: Status: Acute (3) Hypoxia: Status: Acute Plan 68-year-old male with a PMH significant for?paroxysmal AFib on Eliquis, paraplegia secondary to spinal cord injury, neurogenic bladder with chronic suprapubic catheter in place, recurrent UTIs, colostomy, pacemaker in place, hypothyroidism, chronic pain syndrome, and sacral decubitus ulcer who presents to the ED from [facility] with increased SOB, difficulty breathing, and non- productive cough since yesterday. Pt will be admitted to the hospital for treatment and further evaluation of acute hypoxic respiratory failure in the setting of community acquired pneumonia. Acute hypoxic respiratory failure with hypoxia due to pneumonia and difficulty with secretions chest CT - worsening volume loss and consolidation throughout right lung suspicious for pneumonia Initially treated with ceftriaxone and azithromycin; now on Cefepime and Doxy Continue supplemental oxygen, wean as tolerated preent 90 on rooma continue mucomyst, mucinex, CPT Had bronchoscopy with clearance of mucous on 06/02, and may need repeat bronch, will discuss [facility] pulmonology try of scopolamine patch Acute UTI due to suprapubic catheter history of recurrent UTIs. No sepsis urine culture growing Pseudomonas and Providencia - Cefepime and Doxy x 10 per ID, getting midline pericardial effusion seen on CT - reported as similar to previous echo with small to moderate pericardial effusion - no significant change from prior study in december 2023 Chronic lower leg edema leg edema, chronic No hx of CHF, last echo 12/2023 no pulmonary edema on chest CT Continue baseline Lasix stage 3 (per notes from pervious admission) sacral decubitus ulcers. poa Follows with [facility] Wound care consult Patient positioning q.2h Hypotension, chronic, not due to sepsis Continue midodrine History of paraplegia with neuropathy Continue baclofen, gabapentin Paroxysmal AFib Not on rate control agent Continue Eliquis Hypothyroidism Continue levothyroxine Full Code DVT Prophylaxis: Eliquis equires ongoing inpatient stay for treatment of?acute hypoxic respiratory failure in the setting of pneumonia requiring IV antibiotics, supplemental oxygen, and breathing treatments, specialist evaluation and close monitoring of respiratory status Quality Stroke Does the patient have a stroke diagnosis?: No VTE Prior VTE?: No VTE Risk Level:: Medical - moderate - high VTE Device Contraindication: Treatment Not Indicated VTE Drug Contraindication: N/A - Med Ordered
[2024-06-04] MEDS: cefEPime HCl 1 GM in 0.9 % Sodium Chloride 50 ML IV (12:23)
[2024-06-04] MEDS: Scopolamine 1.5 MG PATCH.TD.3 EAR-BEHIND (12:24)
[2024-06-04] MEDS: Nystatin Powder 15 GM BOTTLE 1 APPL TOPICAL ×2 (12:26→22:29)
--- NOTE | 2024-06-04 13:33 | P.PNPL_ITS ---
Subjective Subjective Date of Service: 06/04/24 Interval history: The patient was seen and examined oxygen requirements have been increasing. He is continue on the antibiotics. His cultures were positive for staph aureus. He will need additional coverage. He is agreeable to have a repeat bronchoscopy if needed. We briefly spoke about considering a tracheostomy if he continues getting recurrent aspiration pneumonia. And she has difficulty clearing secretions will be an option to help him with secretions via tracheostomy. But for now he will continue the additional antibiotics and will reassess with x- rays tomorrow and if he is not getting any better will plan for bronchoscopy on morning. He is already scheduled to the surgical department. The patient has been off his Eliquis since then on and will keep him off at this time. Objective Data Labs 06/03/24 06:19 06/02/24 14:48 Microbiology Microbiology Results: Microbiology 06/02/24 11:00 Bronchial Washings Gram Stain - Final 06/02/24 11:00 Bronchial Washings Routine Culture - Preliminary Staphylococcus aureus 05/29/24 12:41 Blood - Venous Blood Culture - Final No growth after 5 days. 05/29/24 12:41 Blood - Venous Blood Culture - Final No growth after 5 days. 05/29/24 Unknown Urine Catheterized - [place] Catheter Urine Culture - Final Pseudomonas aeruginosa Providencia rettgeri Review of Systems Cardiovascular: Denies chest pain and Reports dyspnea Respiratory: Reports cough, Denies excessive phlegm production and Reports dyspnea Physical Exam 2 Vital Signs: Vital Signs: Last Vital Signs Temp 98.2 F 06/04/24 12:00 Pulse 64 06/04/24 12:00 Resp 18 06/04/24 12:00 BP 119/70 06/04/24 12:00 Pulse Ox 95 06/04/24 12:00 O2 Del Method Oxymask 06/04/24 12:00 O2 Flow Rate 4.0 06/04/24 12:00 Oxygen Flow Rate 4 06/04/24 09:00 BMI result Body Mass Index 35.1 Const: General: cooperative HEENT: Face and sinus: Yes normal facial exam Mouth: Normal oral and palatal mucosa present Teeth and gingiva: dentition normal Eyes: General: appearance normal, both eyes and all related structures P upils: Equal, round and reactive pupils present Resp: Auscultation: diminished lung sounds Cardio: Rate: regular rate Rhythm: regular rhythm GI: Palpation (GI): Soft to palpation and nontender : Other: [place] bag with hematuria General: Yes no CVA tenderness Back/Spine/Pelvis: Back: no CVA tenderness Skin: General skin exam: no rashes or lesions noted Neuro: General: moves all extremities Cranial nerves: Yes Equal, round and reactive pupils present Extrem: Other: weakness lower extremities Procedures Date of Service Date of Service: 06/04/24 Assessment and Plan Assessment and plan (1) Pulmonary atelectasis: Status: Acute (2) Pneumonia: Status: Acute Plan Adding Vancomycin CPT oxygen supplementation CXR tomorrow Bronchoscopy if no better Time Spent With Patient Time: Total time managing care of this patient today ____ minutes. Progress Note: Quality Stroke Does the patient have a stroke diagnosis?: No
--- NOTE | 2024-06-04 16:31 | MHC.CM.PN ---
Patient planned for a Midline today. DC on IV ABX x 10 days. Spoke with Joanne @ the . They are not able to accept the patient with IV ABX at the . SNF preferences obtained. [facility] has been referred. Patient is not ready to discharge today. [facility] for IV ABX via BLS.
--- NOTE | 2024-06-04 16:36 | PC.NURSE ---
Patient's sister Analia and brother Moses called unit for updates on patient status. Patient requested this RN update these two family members. Primary care RN spoke with Moses over phone and provided updates in regards to current health status and plan of care. Updates included: - patient's current chest congestion and cough. - patient refusing meals, but accepting ensures and maintaining good PO hydration. Patient reports refusing meals due to not liking the taste of it currently. - refusing nasopharyngeal suctioning to help manage secretions. - Financial Director Dr. Murillo visiting bedside and discussing potential repeat bronchoscopy and repeat chest x-ray with patient. - adding additional antibiotics per providers. - oxygen delivery devices and management. - chest PT; aerobika device. Moses verbalized understanding and provided the following contact information. Moses: [phone] Analia: [phone]
--- NOTE | 2024-06-04 17:25 | HO.MIDLINE_ITS ---
Midline Insertion MIDLINE INSERTION Diagnosis: UTI Indication: 10 days of Antibx Pertinent Labs: Reviewed Technique: Using sterile technique including cap and mask, glove and drape, the Left arm was prepped and draped in the usual sterile fashion of full barrier technique with CHG. Using ultrasound guidance, Left Cephalic vein access was obtained. [id number] Powermidline Non-PASV trimmed at 12cm was positioned. The procedure was performed in Rm 272. Ultrasound was used to document vein patency and for needle entry. A formal ultrasound picture was recorded. Vascular Manager [employer] has released the line for use and it is currently dressed with a StatLock, Tegaderm, and CHG disc. Verification has been performed for blood return and line patency. Arm Circumference: 33.5cm Equipment: Bard PowerMidline Catheter Catheter Type: [id number] Powermidline Non-PASV Lot #: [id number]
[2024-06-04] MEDS: traZODone HCL 25 MG HALFTAB 75 MG PO (20:36)
[2024-06-04] MEDS: Docusate Sodium 100 MG CAPSULE 200 MG PO (20:37)
[2024-06-04] MEDS: Baclofen 20 MG TABLET 40 MG PO (20:37)
[2024-06-04] MEDS: Gabapentin 600 MG TABLET PO (20:37)
--- NOTE | 2024-06-04 22:52 | PC.RT ---
RN called to sxn pt. pt does not want to be NTS only sxn by mouth. used cough assist and suctioned via mouth. marilou well but feels sob still and wants to be put in chair right now.
[2024-06-05] VITALS (11 sets, daily range): BP systolic 105–145; BP diastolic 59–76; PULSE 60–88; RESP 18–22; TEMP 36.1–36.9; O2SAT 91–99
[2024-06-05] MEDS: cefEPime HCl 1 GM in 0.9 % Sodium Chloride 50 ML IV ×3 (00:40→23:18)
[2024-06-05] MEDS: Doxycycline Monohydrate 100 MG CAPSULE PO ×2 (02:56→15:33)
[2024-06-05] MEDS: Levothyroxine Sodium 112 MCG TABLET PO (05:30)
[2024-06-05] MEDS: Levothyroxine Sodium 25 MCG TABLET PO (05:30)
[2024-06-05] MEDS: Acetylcysteine 10 % 400 MG/4 ML VIAL 200 MG INHALE (08:26)
[2024-06-05] MEDS: Albuterol/Iprat 2.5/0.5MG 3 ML AMPUL.NEB INHALE (08:27)
[2024-06-05] MEDS: Albuterol Sulfate (0.083%) 2.5 MG/3 ML VIAL.NEB INHALE ×2 (08:31→19:19)
[2024-06-05] MEDS: 0.9 % Sodium Chloride Flush 3 ML SYRINGE IVFLUSH ×3 (08:42→20:11)
[2024-06-05] MEDS: Multivitamin TABLET 1 TAB PO (08:42)
[2024-06-05] MEDS: guaiFENesin LA 600 MG TAB.ER.12H 1200 MG PO ×2 (08:42→20:10)
[2024-06-05] MEDS: Ascorbic Acid 500 MG TABLET PO (08:43)
[2024-06-05] MEDS: Gabapentin 100 MG CAPSULE PO ×2 (08:43→13:54)
[2024-06-05] MEDS: Dicyclomine HCl 10 MG CAPSULE PO ×4 (08:43→20:09)
[2024-06-05] MEDS: Furosemide 20 MG TABLET PO (08:43)
[2024-06-05] MEDS: oxyBUTYnin chloride ER 5 MG TAB.ER.24 10 MG PO (08:43)
[2024-06-05] MEDS: calcitrioL 0.25 MCG CAPSULE PO (08:43)
[2024-06-05] MEDS: Midodrine HCl 10 MG TABLET PO ×3 (08:43→17:18)
[2024-06-05] MEDS: Ferrous Sulfate 324 MG TABLET.DR PO (08:44)
[2024-06-05] MEDS: Baclofen 20 MG TABLET PO ×3 (08:44→20:08)
[2024-06-05] MEDS: Nystatin Powder 15 GM BOTTLE 1 APPL TOPICAL ×2 (08:47→20:12)
--- NOTE | 2024-06-05 10:31 | MHC.CLN ---
F/U PT WITH INCREASED NUTRITION RISK R/T PRESSURE INJURY. STAGE 3 TO SACRUM AND STAGE 3 TO BILATERAL LOWER LEGS. DIET=REGULAR. PO INTAKE CONTINUES VARIABLE 0-100%. ENSURE MAX BID (300 KCALS, 60 G PROTEIN) TO PROMOTE WOUND HEALING. MONITOR PO INTAKE AND ENCOURAGE SUPPLEMENT.
--- NOTE | 2024-06-05 10:32 | P.PNIM_ITS ---
Subjective Subjective Date of Service: 06/05/24 Interval History: seen and examined this morning follow up for pneumonia and difficulty managing secreations s/p bronch on 06/02. He is doing better today Physical Exam 2 Vital Signs: Vital Signs: Last Vital Signs Temp 97.5 F 06/05/24 07:56 Pulse 88 06/05/24 08:29 Resp 18 06/05/24 08:29 BP 145/74 H 06/05/24 07:56 Pulse Ox 91 L 06/05/24 09:00 O2 Del Method Nasal Cannula 06/05/24 09:00 O2 Flow Rate 5 06/05/24 07:56 Oxygen Flow Rate 5 06/05/24 09:00 BMI result Body Mass Index 35.1 Const: General: cooperative HEENT: Face and sinus: Yes normal facial exam Mouth: Normal oral and palatal mucosa present Teeth and gingiva: dentition normal Eyes: General: appearance normal, both eyes and all related structures P upils: Equal, round and reactive pupils present Resp: Effort & Inspection: normal respiratory effort Cardio: Rate: regular rate Rhythm: regular rhythm GI: Palpation (GI): Soft to palpation and nontender : Other: [place] bag with hematuria General: Yes no CVA tenderness Back/Spine/Pelvis: Back: no CVA tenderness Skin: General skin exam: no rashes or lesions noted Neuro: General: moves all extremities Cranial nerves: Yes Equal, round and reactive pupils present Extrem: Other: weakness lower extremities Objective Data Active Medications Acetaminophen (Acetaminophen 325 Mg Tablet) 650 mg PO Q6H PRN PRN Reason: Pain, Mild 1-3,fever,headache Acetylcysteine (Acetylcysteine 10 % 400 Mg/4 Ml Vial) 200 mg [facility] Last Admin: 06/05/24 08:26 Dose: 200 mg Documented By: LAWRENCE Albuterol Sulfate (Albuterol Sulfate (0.083%) 2.5 Mg/3 Ml Vial.Neb) 2.5 mg INHALE ID [facility] Last Admin: 06/05/24 08:31 Dose: 2.5 mg Documented By: LAWRENCE Albuterol/Ipratropium (Albuterol/Iprat 2.5/0.5mg 3 Ml Ampul.Neb) 3 ml INHALE RQ4H WHILE AWAKE PRN PRN Reason: Shortness of Breath/Wheezing Last Admin: 06/05/24 08:27 Dose: 3 ml Documented By: LAWRENCE Apixaban (Apixaban 5 Mg Tablet) 5 mg PO BID [facility] Last Admin: 06/02/24 08:10 Dose: Not Given Documented By: HUGH Non-Admin Reason: NPO Ascorbic Acid (Ascorbic Acid 500 Mg Tablet) 500 mg PO DAILY [facility] Last Admin: 06/05/24 08:43 Dose: 500 mg Documented By: JOSEFA Baclofen (Baclofen 20 Mg Tablet) 20 mg PO TID@0700,1200,1900 [facility] Last Admin: 06/05/24 08:44 Dose: 20 mg Documented By: JOSEFA Baclofen (Baclofen 20 Mg Tablet) 40 mg PO BEDTIME [facility] Last Admin: 06/04/24 20:37 Dose: 40 mg Documented By: JOSEPH Calcitriol (Calcitriol 0.25 Mcg Capsule) 0.25 mcg PO DAILY [facility] Last Admin: 06/05/24 08:43 Dose: 0.25 mcg Documented By: JOSEFA Calcium Carbonate (Calcium Carbonate 750 Mg Tab.Chew) 750 mg PO Q4H PRN PRN Reason: Heartburn Dicyclomine HCl (Dicyclomine Hcl 10 Mg Capsule) 10 mg PO QID [facility] Last Admin: 06/05/24 08:43 Dose: 10 mg Documented By: JOSEFA Docusate Sodium (Docusate Sodium 100 Mg Capsule) 200 mg PO BEDTIME [facility] Last Admin: 06/04/24 20:37 Dose: 200 mg Documented By: JOSEPH Doxycycline Monohydrate (Doxycycline Monohydrate 100 Mg Capsule) 100 mg PO Q12H [facility] Last Admin: 06/05/24 02:56 Dose: 100 mg Documented By: JOSEPH Ferrous Sulfate (Ferrous Sulfate 324 Mg Tablet.Dr) 324 mg PO DAILY [facility] Last Admin: 06/05/24 08:44 Dose: 324 mg Documented By: JOSEFA Furosemide (Furosemide 20 Mg Tablet) 20 mg PO DAILY [facility]; Protocol Last Admin: 06/05/24 08:43 Dose: 20 mg Documented By: JOSEFA Gabapentin (Gabapentin 100 Mg Capsule) 100 mg PO BID@0800,1400 [facility] Last Admin: 06/05/24 08:43 Dose: 100 mg Documented By: JOSEFA Gabapentin (Gabapentin 600 Mg Tablet) 600 mg PO BEDTIME [facility] Last Admin: 06/04/24 20:37 Dose: 600 mg Documented By: JOSEPH Guaifenesin (Guaifenesin La 600 Mg Tab.Er.12h) 1,200 mg PO BID [facility] Last Admin: 06/05/24 08:42 Dose: 1,200 mg Documented By: JOSEFA Guaifenesin/Dextromethorphan (Guaifenesin Dm 100/10/5 Ml 5 Ml Syrup) 5 ml PO Q4H PRN PRN Reason: Cough Last Admin: 06/04/24 22:27 Dose: 5 ml Documented By: JOSEPH Cefepime HCl 1 gm/ Sodium (Chloride) 50 mls @ 100 mls/hr IV Q12H [facility] Last Infusion: 06/05/24 01:26 Dose: Infused Documented By: JOSEPH Levothyroxine Sodium (Levothyroxine Sodium 112 Mcg Tablet) 112 mcg PO DAILY@0600 [facility] Last Admin: 06/05/24 05:30 Dose: 112 mcg Documented By: JOSEPH Levothyroxine Sodium (Levothyroxine Sodium 25 Mcg Tablet) 25 mcg PO DAILY@0600 [facility] Last Admin: 06/05/24 05:30 Dose: 25 mcg Documented By: JOSEPH Magnesium Hydroxide (Milk Of Magnesia 30 Ml Oral.Susp) 30 ml PO DAILY PRN PRN Reason: Constipation Melatonin (Melatonin 3 Mg Tablet) 6 mg PO BEDTIME PRN PRN Reason: Insomnia Midodrine (Midodrine Hcl 10 Mg Tablet) 10 mg PO TIDAC [facility] Last Admin: 06/05/24 08:43 Dose: 10 mg Documented By: JOSEFA Multivitamins/Vitamin C (Multivitamin Tablet) 1 tab PO DAILY [facility] Last Admin: 06/05/24 08:42 Dose: 1 tab Documented By: JOSEFA Naloxone HCl (Naloxone Hcl 0.4 Mg/Ml Vial) 0.04 mg IVPUSH Q5M PRN PRN Reason: Excessive sedation or RR < 8 Nystatin (Nystatin Powder 15 Gm Bottle) 1 appl TOPICAL BID [facility]; Protocol Last Admin: 06/05/24 08:47 Dose: 1 appl Documented By: JOSEFA Oxybutynin Chloride (Oxybutynin Chloride Er 5 Mg Tab.Er.24) 10 mg PO DAILY [facility] Last Admin: 06/05/24 08:43 Dose: 10 mg Documented By: JOSEFA Scopolamine (Scopolamine 1.5 Mg Patch.Td.3) 1.5 mg EAR-BEHIND Q72H [facility] Last Admin: 06/04/24 12:24 Dose: 1.5 mg Documented By: SIDNEY Senna (Sennosides 8.6 Mg Tablet) 8.6 mg PO DAILY PRN PRN Reason: Constipation Sodium Chloride (0.9 % Sodium Chloride Flush 3 Ml Syringe) 3 ml IVFLUSH QSHIFT [facility] Last Admin: 06/05/24 08:42 Dose: 3 ml Documented By: JOSEFA Trazodone HCl (Trazodone Hcl 25 Mg Halftab) 75 mg PO BEDTIME [facility] Last Admin: 06/04/24 20:36 Dose: 75 mg Documented By: ORLANDV Labs 06/03/24 06:19 06/02/24 14:48 Microbiology Microbiology Results: Microbiology 06/02/24 11:00 Gram Stain - Final Bronchial Washings Routine Culture - Final Staphylococcus aureus Assessment and Plan (1) UTI (urinary tract infection): Status: Acute (2) Pneumonia: Status: Acute (3) Hypoxia: Status: Acute Plan 68-year-old male with a PMH significant for?paroxysmal AFib on Eliquis, paraplegia secondary to spinal cord injury, neurogenic bladder with chronic suprapubic catheter in place, recurrent UTIs, colostomy, pacemaker in place, hypothyroidism, chronic pain syndrome, and sacral decubitus ulcer who [facility] with increased SOB, difficulty breathing, and non- productive cough since yesterday. Pt will be admitted to the hospital for treatment and further evaluation of acute hypoxic respiratory failure in the setting of community acquired pneumonia. Acute hypoxic respiratory failure with hypoxia due to pneumonia and difficulty with secretions chest CT - worsening volume loss and consolidation throughout right lung suspicious for pneumonia Initially treated with ceftriaxone and azithromycin; now on Cefepime and Doxy for staph Continue supplemental oxygen, wean as tolerated preent 90 on rooma continue mucomyst, mucinex, CPT Had bronchoscopy with clearance of mucous on 06/02, and may need repeat bronch, will [facility] pul[facility] try of scopolamine patch. Overall feeling better, seen by pulmonary vanco suggested by holding of since Staph Aurues Not MRSA and sensitive to Doxy Acute UTI due to suprapubic catheter history of recurrent UTIs. No sepsis urine culture growing Pseudomonas and Providencia - Cefepime and Doxy x 10 per ID, getting midline pericardial effusion seen on CT - reported as similar to previous echo with small to moderate pericardial effusion - no significant change from prior study in december 2023 Chronic lower leg edema leg edema, chronic No hx of CHF, last echo 12/2023 no pulmonary edema on chest CT Continue baseline Lasix stage 3 (per notes from pervious admission) sacral decubitus ulcers. poa [facility]s with [facility] care consult Patient positioning q.2h Hypotension, chronic, not due to sepsis Continue midodrine History of paraplegia with neuropathy Continue baclofen, gabapentin Paroxysmal AFib Not on rate control agent Continue Eliquis Hypothyroidism Continue levothyroxine Full Code DVT Prophylaxis: Eliquis requires ongoing inpatient stay for treatment of?acute hypoxic respiratory failure in the setting of pneumonia requiring IV antibiotics, supplemental oxygen, and breathing treatments, specialist evaluation and close monitoring of respiratory status Quality Stroke Does the patient have a stroke diagnosis?: No VTE Prior VTE?: No VTE Risk Level:: Medical - moderate - high VTE Device Contraindication: Treatment Not Indicated VTE Drug Contraindication: N/A - Med Ordered
[2024-06-05] MEDS: guaiFENesin DM 100/10/5 ML 5 ML SYRUP PO ×2 (15:38→23:17)
[2024-06-05] MEDS: LORazepam 0.5 MG TABLET PO (18:21)
[2024-06-05] MEDS: Acetylcysteine 10 % 400 MG/4 ML VIAL INHALE (19:19)
[2024-06-05] MEDS: Baclofen 20 MG TABLET 40 MG PO (20:08)
[2024-06-05] MEDS: Docusate Sodium 100 MG CAPSULE 200 MG PO (20:08)
[2024-06-05] MEDS: traZODone HCL 25 MG HALFTAB 75 MG PO (20:10)
[2024-06-05] MEDS: Gabapentin 600 MG TABLET PO (20:10)
[2024-06-06] VITALS (15 sets, daily range): BP systolic 95–140; BP diastolic 55–83; PULSE 59–65; RESP 16–22; TEMP 36–36.9; O2SAT 93–99
[2024-06-06] MEDS: 0.9 % Sodium Chloride Flush 3 ML SYRINGE IVFLUSH ×3 (07:45→23:54)
[2024-06-06] MEDS: Albuterol Sulfate (0.083%) 2.5 MG/3 ML VIAL.NEB INHALE ×3 (07:52→19:37)
[2024-06-06] MEDS: Acetylcysteine 10 % 400 MG/4 ML VIAL INHALE ×2 (07:54→19:36)
--- NOTE | 2024-06-06 09:00 | MHC.SHP ---
Pre-Procedural Eval Section A - 24 Hr Update-Section A only Date of Service: 06/06/24 The patient is an INPATIENT: Yes Section B - Complete if H&P > 30 days Chief Complaint: Acute hypoxic respiratory failure with pneumonia Allergies: Allergies Allergy/AdvReac Type Severity Reaction Status Date / Time dicloxacillin [From DYNAPEN] Allergy Unknown Unknown Verified 05/29/24 11:55 ofloxacin [From FLOXIN] AdvReac Intermediate Abdominal Verified 05/29/24 11:55 Pain penicillin V AdvReac Intermediate Abdominal Verified 05/29/24 11:55 Pain Plan I have reviewed the history and physical and performed a pertinent physical examination on my patient. No changes have occurred unless specified. Time Spent With Patient Time: Total time managing care of this patient today ____ minutes.
--- NOTE | 2024-06-06 09:24 | HO.ANESPROP2 ---
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 (Acute) Osteoarthritis of right shoulder (Acute) Chronic osteomyelitis with draining sinus, other site (Acute) Spinal cord injury (Acute) Acute confusion (Acute) Past Medical History Medical History Suprapubic catheter dysfunction Neurogenic bladder Quadriplegia, C5-C7 incomplete Atrial fibrillation Chronic restrictive lung disease Pneumonia Urine retention Irreducible left inguinal hernia Autonomic dysfunction Hypothyroidism Hernia Spasms of the hands or feet Spinal cord injury Family History Family History Sister Diabetes mellitus Family history of problems with anesthesia: No Surgical History Surgical History Chronic suprapubic catheter S/P tendon repair H/O hemorrhoidectomy S/P IVC filter H/O hernia repair H/O thyroidectomy History of Problems with Anesthesia: Yes Social History Social History Household Members: None Household Members Other:: skilled nursing Housing: Alf Housing Other:: skilled nursing in [place] Do you presently have visiting nurse or other home services: No Alcohol intake: former Comment: pt paraplegic Patient Tobacco Use Status: Never used Tobacco Use of substances other than those prescribed or required for medical reasons: No Currently Displaying Signs/Symptoms of Drug Intoxication Withdrawal: No Have you been hit, kicked, punched, or otherwise hurt by someone within the past year? If so, by whom?: No Are you DNR?: No Advance Directives: Yes Advance Directives on File: Yes Advance Directives Date on File: 01/09/23 Do you have a plan to hurt others: No Plan Recently lost weight without trying: No service: No Meds Allergies Allergy/AdvReac Type Severity Reaction Status Date / Time dicloxacillin [From DYNAPEN] Allergy Unknown Unknown Verified 05/29/24 11:55 ofloxacin [From FLOXIN] AdvReac Intermediate Abdominal Verified 05/29/24 11:55 Pain penicillin V AdvReac Intermediate Abdominal Verified 05/29/24 11:55 Pain Active Medications: Current Medications Acetaminophen (Acetaminophen 325 Mg Tablet) 650 mg PO Q6H PRN PRN Reason: Pain, Mild 1-3,fever,headache Acetylcysteine (Acetylcysteine 10 % 400 Mg/4 Ml Vial) 400 mg INHALE RBID [facility] Last Admin: 06/06/24 07:54 Dose: 400 mg Albuterol Sulfate (Albuterol Sulfate (0.083%) 2.5 Mg/3 Ml Vial.Neb) 2.5 mg INHALE RBID [facility] Last Admin: 06/06/24 07:52 Dose: 2.5 mg Albuterol/Ipratropium (Albuterol/Iprat 2.5/0.5mg 3 Ml Ampul.Neb) 3 ml INHALE RQ4H WHILE AWAKE PRN PRN Reason: Shortness of Breath/Wheezing Last Admin: 06/05/24 08:27 Dose: 3 ml Apixaban (Apixaban 5 Mg Tablet) 5 mg PO BID [facility] Last Admin: 06/02/24 08:10 Dose: Not Given Ascorbic Acid (Ascorbic Acid 500 Mg Tablet) 500 mg PO DAILY [facility] Last Admin: 06/05/24 08:43 Dose: 500 mg Baclofen (Baclofen 20 Mg Tablet) 20 mg PO TID@0700,1200,1900 [facility] Last Admin: 06/05/24 20:08 Dose: 20 mg Baclofen (Baclofen 20 Mg Tablet) 40 mg PO BEDTIME [facility] Last Admin: 06/05/24 20:08 Dose: 40 mg Calcitriol (Calcitriol 0.25 Mcg Capsule) 0.25 mcg PO DAILY [facility] Last Admin: 06/05/24 08:43 Dose: 0.25 mcg Calcium Carbonate (Calcium Carbonate 750 Mg Tab.Chew) 750 mg PO Q4H PRN PRN Reason: Heartburn Dicyclomine HCl (Dicyclomine Hcl 10 Mg Capsule) 10 mg PO QID [facility] Last Admin: 06/05/24 20:09 Dose: 10 mg Docusate Sodium (Docusate Sodium 100 Mg Capsule) 200 mg PO BEDTIME [facility] Last Admin: 06/05/24 20:08 Dose: 200 mg Doxycycline Monohydrate (Doxycycline Monohydrate 100 Mg Capsule) 100 mg PO Q12H [facility] Last Admin: 06/06/24 01:40 Dose: Not Given Ferrous Sulfate (Ferrous Sulfate 324 Mg Tablet.Dr) 324 mg PO DAILY [facility] Last Admin: 06/05/24 08:44 Dose: 324 mg Furosemide (Furosemide 20 Mg Tablet) 20 mg PO DAILY [facility]; Protocol Last Admin: 06/05/24 08:43 Dose: 20 mg Gabapentin (Gabapentin 100 Mg Capsule) 100 mg PO BID@0800,1400 [facility] Last Admin: 06/05/24 13:54 Dose: 100 mg Gabapentin (Gabapentin 600 Mg Tablet) 600 mg PO BEDTIME [facility] Last Admin: 06/05/24 20:10 Dose: 600 mg Guaifenesin (Guaifenesin La 600 Mg Tab.Er.12h) 1,200 mg PO BID [facility] Last Admin: 06/05/24 20:10 Dose: 1,200 mg Guaifenesin/Dextromethorphan (Guaifenesin Dm 100/10/5 Ml 5 Ml Syrup) 5 ml PO Q4H PRN PRN Reason: Cough Last Admin: 06/05/24 23:17 Dose: 5 ml Cefepime HCl 1 gm/ Sodium (Chloride) 50 mls @ 100 mls/hr IV Q12H [facility] Last Infusion: 06/06/24 00:09 Dose: Infused Levothyroxine Sodium (Levothyroxine Sodium 112 Mcg Tablet) 112 mcg PO DAILY@0600 [facility] Last Admin: 06/06/24 05:26 Dose: Not Given Levothyroxine Sodium (Levothyroxine Sodium 25 Mcg Tablet) 25 mcg PO DAILY@0600 [facility] Last Admin: 06/06/24 05:27 Dose: Not Given Magnesium Hydroxide (Milk Of Magnesia 30 Ml Oral.Susp) 30 ml PO DAILY PRN PRN Reason: Constipation Melatonin (Melatonin 3 Mg Tablet) 6 mg PO BEDTIME PRN PRN Reason: Insomnia Midodrine (Midodrine Hcl 10 Mg Tablet) 10 mg PO TIDAC [facility] Last Admin: 06/05/24 17:18 Dose: 10 mg Multivitamins/Vitamin C (Multivitamin Tablet) 1 tab PO DAILY [facility] Last Admin: 06/05/24 08:42 Dose: 1 tab Naloxone HCl (Naloxone Hcl 0.4 Mg/Ml Vial) 0.04 mg IVPUSH Q5M PRN PRN Reason: Excessive sedation or RR < 8 Nystatin (Nystatin Powder 15 Gm Bottle) 1 appl TOPICAL BID [facility]; Protocol Last Admin: 06/05/24 20:12 Dose: 1 appl Oxybutynin Chloride (Oxybutynin Chloride Er 5 Mg Tab.Er.24) 10 mg PO DAILY [facility] Last Admin: 06/05/24 08:43 Dose: 10 mg Scopolamine (Scopolamine 1.5 Mg Patch.Td.3) 1.5 mg EAR-BEHIND Q72H [facility] Last Admin: 06/04/24 12:24 Dose: 1.5 mg Senna (Sennosides 8.6 Mg Tablet) 8.6 mg PO DAILY PRN PRN Reason: Constipation Sodium Chloride (0.9 % Sodium Chloride Flush 3 Ml Syringe) 3 ml IVFLUSH QSHIFT [facility] Last Admin: 06/06/24 07:45 Dose: 3 ml Trazodone HCl (Trazodone Hcl 25 Mg Halftab) 75 mg PO BEDTIME [facility] Last Admin: 06/05/24 20:10 Dose: 75 mg Home Medications ?Medication ?Instructions ?Recorded ?Confirmed ?Last Taken ?Type ascorbic acid (vitamin C) 500 mg 500 mg PO DAILY 03/23/20 05/29/24 03/23/20 History tablet calcitriol 0.25 mcg capsule 0.25 mcg PO DAILY 03/23/20 05/29/24 03/23/20 History docusate sodium 100 mg capsule 200 mg PO BEDTIME 03/23/20 05/29/24 03/23/20 History (Colace) cholecalciferol (vitamin D3) 1,250 1,250 mcg PO QMONTH 01/09/23 05/29/24 11/23/23 History mcg (50,000 unit) tablet dicyclomine 10 mg capsule 10 mg PO QID 01/09/23 05/29/24 Unknown History furosemide 20 mg tablet 20 mg PO DAILY 01/09/23 05/29/24 Unknown History gabapentin 100 mg capsule 100 mg PO BID@0800,1400 01/09/23 05/29/24 Unknown History gabapentin 600 mg tablet 600 mg PO BEDTIME 01/09/23 05/29/24 Unknown History melatonin 10 mg tablet 10 mg PO BEDTIME Sleep 01/09/23 05/29/24 Unknown History midodrine 10 mg tablet 10 mg PO TIDAC 01/09/23 05/29/24 Unknown History acetaminophen 325 mg tablet 650 mg PO Q6H PRN 11/26/23 05/29/24 Unknown History headache/fever/bodyaches nystatin 100,000 unit/gram topical 1 appl topical BID Rash 11/26/23 05/29/24 Unknown History powder (Nyamyc) trazodone 150 mg tablet 75 mg PO BEDTIME 11/26/23 05/29/24 Unknown History ferrous sulfate 325 mg (65 mg 325 mg PO DAILY 12/04/23 05/29/24 Unknown History iron) tablet (FeroSul) miconazole nitrate 2 % topical 1 appl topical BID PRN fungal rash 12/04/23 05/29/24 Unknown History cream sennosides 8.6 mg tablet (senna) 8.6 mg PO DAILY PRN Constipation 12/04/23 05/29/24 Unknown History apixaban 5 mg tablet (Eliquis) 5 mg PO BID 04/29/24 05/29/24 Unknown History baclofen 20 mg tablet 20 mg PO TID@0700,1200,1900 05/29/24 05/29/24 Unknown History baclofen 20 mg tablet 40 mg PO BEDTIME 05/29/24 05/29/24 Unknown History levothyroxine 137 mcg tablet 137 mcg PO DAILY@0630 05/29/24 05/29/24 Unknown History whjvdjludxfc-nvzkrefm-bsoy 1 tab PO DAILY 05/29/24 05/29/24 Unknown History fumarate 19 mg-folic acid 400 mcg tablet (Thera-M) nystatin 100,000 unit/gram topical 1 appl topical BID 05/29/24 05/29/24 Unknown History cream Exam Height,Weight and Vital Signs: Height 6 ft 4 in Weight 130.9 kg Last Vital Signs Temp 98.1 F 06/06/24 08:20 Pulse 60 06/06/24 08:20 Resp 16 06/06/24 08:20 BP 100/57 L 06/06/24 08:20 Pulse Ox 98 06/06/24 08:20 O2 Del Method Nasal Cannula 06/06/24 08:20 O2 Flow Rate 5 06/06/24 08:20 Oxygen Flow Rate 5 06/05/24 09:00 Pertinent Lab Results Pertinent Lab Results: Laboratory Tests 05/29/24 05/29/24 05/29/24 12:05 12:41 14:37 WBC 7.7 RBC 3.81 L Hgb 10.6 L Hct 33.4 L MCV 87.7 MCH 27.8 MCHC 31.7 RDW 16.4 H Plt Count 261 MPV 8.9 L Immature Gran % (Auto) 0.5 H Neut % (Auto) 71.3 Lymph % (Auto) 18.0 L [place] % (Auto) 7.2 Eos % (Auto) 2.6 Baso % (Auto) 0.4 Lymph # (Auto) 1.4 [place] # (Auto) 0.6 Eos # (Auto) 0.2 Baso # (Auto) 0.0 Abs Immat Gran (auto) 0.04 H Absolute Neuts (auto) 5.5 Absolute Nucleated RBC 0.000 Nucleated RBC % (auto) 0.0 PT 22.5 H INR 1.9 H Sodium 139 Potassium 3.6 Chloride 100 Carbon Dioxide 29 Anion Gap 14 BUN 14 Creatinine 0.62 Estim Creat Clear Calc 170.7 Estimated GFR > 60 POC Glucose Random Glucose 96 Lactic Acid 0.9 Calcium 8.5 D Magnesium 1.8 Total Bilirubin 0.5 AST 21 ALT 12 Alkaline Phosphatase 70 B-Natriuretic Peptide 151 H Total Protein 7.5 Albumin 3.7 Lipase 12 Urine Color Yellow Urine Appearance Cloudy Urine pH 6.0 Ur Specific [place] >= 1.030 H Urine Protein Negative Urine Glucose (UA) Negative Urine Ketones 15 Urine Blood Large (3+) H Urine Nitrite Positive H Ur Leukocyte Esterase Moderate (2+) H Urine RBC >20 H Urine WBC >50 H Urine WBC Clumps Present Ur Squamous Epith Cells 0-2 Urine Bacteria 2+ Hyaline Casts 0-2 Respiratory Panel [place] Adenovirus (Rapid PCR) B.pert (TEM-PCR) B.parapertussis DNA PCR C. pneumoniae DNA (PCR) Coronavirus OC43 (PCR) Coronavirus HKU1 (PCR) Coronavirus 229E (PCR) Coronavirus NL63 (PCR) Human Metapneumovir PCR Influenza A (RT-PCR) Influenza Type A (PCR) NEGATIVE Influenza B (RT-PCR) Influenza Type B (PCR) NEGATIVE M. pneumoniae (PCR) Parainfluenza 1 (PCR) Parainfluenza 2 (PCR) Parainfluenza 3 (PCR) Parainfluenza 4 (PCR) RSV (PCR) RSV RNA Qual (PCR) NEGATIVE Entero/Rhino (PCR) SARS-CoV-2 RNA (RT-PCR) NEGATIVE 05/29/24 05/30/24 06/02/24 20:21 05:30 14:48 WBC 9.4 7.6 RBC 3.77 L 3.40 L Hgb 10.5 L 9.7 L Hct 33.7 L 31.8 L MCV 89.4 93.5 MCH 27.9 28.5 MCHC 31.2 30.5 L RDW 16.0 16.2 H Plt Count 261 243 MPV 9.5 9.0 L Immature Gran % (Auto) Neut % (Auto) Lymph % (Auto) [place] % (Auto) Eos % (Auto) Baso % (Auto) Lymph # (Auto) [place] # (Auto) Eos # (Auto) Baso # (Auto) Abs Immat Gran (auto) Absolute Neuts (auto) Absolute Nucleated RBC 0.000 0.000 Nucleated RBC % (auto) 0.0 0.0 PT INR Sodium 140 144 Potassium 3.7 3.6 Chloride 100 101 Carbon Dioxide 29 35 H Anion Gap 15 12 BUN 11 9 Creatinine 0.53 0.60 Estim Creat Clear Calc 199.7 176.4 Estimated GFR > 60 > 60 POC Glucose 136 H Random Glucose 150 H 139 H Lactic Acid Calcium 7.8 L D 8.1 L Magnesium Total Bilirubin AST ALT Alkaline Phosphatase B-Natriuretic Peptide Total Protein Albumin Lipase Urine Color Urine Appearance Urine pH Ur Specific [place] Urine Protein Urine Glucose (UA) Urine Ketones Urine Blood Urine Nitrite Ur Leukocyte Esterase Urine RBC Urine WBC Urine WBC Clumps Ur Squamous Epith Cells Urine Bacteria Hyaline Casts Respiratory Panel [place] Adenovirus (Rapid PCR) B.pert (TEM-PCR) B.parapertussis DNA PCR C. pneumoniae DNA (PCR) Coronavirus OC43 (PCR) Coronavirus HKU1 (PCR) Coronavirus 229E (PCR) Coronavirus NL63 (PCR) Human Metapneumovir PCR Influenza A (RT-PCR) Influenza Type A (PCR) Influenza B (RT-PCR) Influenza Type B (PCR) M. pneumoniae (PCR) Parainfluenza 1 (PCR) Parainfluenza 2 (PCR) Parainfluenza 3 (PCR) Parainfluenza 4 (PCR) RSV (PCR) RSV RNA Qual (PCR) Entero/Rhino (PCR) SARS-CoV-2 RNA (RT-PCR) 06/02/24 06/03/24 15:44 06:19 WBC 6.7 RBC 3.24 L Hgb 9.1 L Hct 30.3 L MCV 93.5 MCH 28.1 MCHC 30.0 L RDW 16.1 H Plt Count 271 MPV 9.1 L Immature Gran % (Auto) Neut % (Auto) Lymph % (Auto) [place] % (Auto) Eos % (Auto) Baso % (Auto) Lymph # (Auto) [place] # (Auto) Eos # (Auto) Baso # (Auto) Abs Immat Gran (auto) Absolute Neuts (auto) Absolute Nucleated RBC 0.000 Nucleated RBC % (auto) 0.0 PT INR Sodium Potassium Chloride Carbon Dioxide Anion Gap BUN Creatinine Estim Creat Clear Calc Estimated GFR POC Glucose Random Glucose Lactic Acid Calcium Magnesium Total Bilirubin AST ALT Alkaline Phosphatase B-Natriuretic Peptide Total Protein Albumin Lipase Urine Color Urine Appearance Urine pH Ur Specific [place] Urine Protein Urine Glucose (UA) Urine Ketones Urine Blood Urine Nitrite Ur Leukocyte Esterase Urine RBC Urine WBC Urine WBC Clumps Ur Squamous Epith Cells Urine Bacteria Hyaline Casts Respiratory Panel [place] See Note Adenovirus (Rapid PCR) Not Detected B.pert (TEM-PCR) Not Detected B.parapertussis DNA PCR Not Detected C. pneumoniae DNA (PCR) Not Detected Coronavirus OC43 (PCR) Not Detected Coronavirus HKU1 (PCR) Not Detected Coronavirus 229E (PCR) Not Detected Coronavirus NL63 (PCR) Not Detected Human Metapneumovir PCR Not Detected Influenza A (RT-PCR) Not Detected Influenza Type A (PCR) Influenza B (RT-PCR) Not Detected Influenza Type B (PCR) M. pneumoniae (PCR) Not Detected Parainfluenza 1 (PCR) Not Detected Parainfluenza 2 (PCR) Not Detected Parainfluenza 3 (PCR) Not Detected Parainfluenza 4 (PCR) Not Detected RSV (PCR) Not Detected RSV RNA Qual (PCR) Entero/Rhino (PCR) Detected A SARS-CoV-2 RNA (RT-PCR) Not Detected Airway Mallampati Class: II TM Dist: >3cm Neck ROM: Limited Heart: rrr Lungs: copious secretions, Assessment and Plan Assessment Anesthesia Assessment: Anesthesia Plan Discussed and Chart Reviewed Final Anesthetic Review Family History of Problems with Anesthesia: No History of Problems with Anesthesia: Yes NPO: Yes ASA Class: III Final Preanesthetic Review: No Changes in Pt Med Stat, Meds/Allgs Chart Reviewed, Consent Obtained/Reviewed and Anes Risks/Benef Reviewed Patient Risk: Intermediate Procedure Risk: Low Anesthetic Plan Anesthetic Plan: MAC: Disposition: Standard PACU
--- NOTE | 2024-06-06 09:28 | HO.PM.IMPN ---
Subjective Subjective Date of Service: 06/07/24 Interval History: seen and examined this morning follow up for pneumonia and difficulty managing secreations s/p bronch on 06/02. xray 06/05 show right complete opacity Physical Exam Vital Signs: Vital Signs: Last Vital Signs Temp 98.1 F 06/06/24 08:20 Pulse 60 06/06/24 08:20 Resp 16 06/06/24 08:20 BP 100/57 L 06/06/24 08:20 Pulse Ox 98 06/06/24 08:20 O2 Del Method Nasal Cannula 06/06/24 08:20 O2 Flow Rate 5 06/06/24 08:20 Oxygen Flow Rate 5 06/05/24 09:00 BMI result Body Mass Index 35.1 Const: General: cooperative HEENT: Face and sinus: Yes normal facial exam Mouth: Normal oral and palatal mucosa present Teeth and gingiva: dentition normal Eyes: General: appearance normal, both eyes and all related structures Pupils: Equal, round and reactive pupils present Resp: Effort & Inspection: normal respiratory effort Cardio: Rate: regular rate Rhythm: regular rhythm GI: Palpation (GI): Soft to palpation and nontender : Other: [place] bag with hematuria General: Yes no CVA tenderness Back/Spine/Pelvis: Back: no CVA tenderness Skin: General skin exam: no rashes or lesions noted Neuro: General: moves all extremities Cranial nerves: Yes Equal, round and reactive pupils present Extrem: Other: weakness lower extremities Objective Data Active Medications Acetaminophen (Acetaminophen 325 Mg Tablet) 650 mg PO Q6H PRN PRN Reason: Pain, Mild 1-3,fever,headache Acetylcysteine (Acetylcysteine 10 % 400 Mg/4 Ml Vial) 400 mg [facility] Last Admin: 06/06/24 07:54 Dose: 400 mg Documented By: YUSRA Albuterol Sulfate (Albuterol Sulfate (0.083%) 2.5 Mg/3 Ml Vial.Neb) 2.5 mg INHALE ID [facility] Last Admin: 06/06/24 07:52 Dose: 2.5 mg Documented By: YUSRA Albuterol/Ipratropium (Albuterol/Iprat 2.5/0.5mg 3 Ml Ampul.Neb) 3 ml INHALE RQ4H WHILE AWAKE PRN PRN Reason: Shortness of Breath/Wheezing Last Admin: 06/05/24 08:27 Dose: 3 ml Documented By: LAWRENCE Apixaban (Apixaban 5 Mg Tablet) 5 mg PO BID [facility] Last Admin: 06/02/24 08:10 Dose: Not Given Documented By: HUGH Non-Admin Reason: NPO Ascorbic Acid (Ascorbic Acid 500 Mg Tablet) 500 mg PO DAILY [facility] Last Admin: 06/05/24 08:43 Dose: 500 mg Documented By: JOSEFA Baclofen (Baclofen 20 Mg Tablet) 20 mg PO TID@0700,1200,1900 [facility] Last Admin: 06/05/24 20:08 Dose: 20 mg Documented By: JOSEPH Baclofen (Baclofen 20 Mg Tablet) 40 mg PO BEDTIME [facility] Last Admin: 06/05/24 20:08 Dose: 40 mg Documented By: JOSEPH Calcitriol (Calcitriol 0.25 Mcg Capsule) 0.25 mcg PO DAILY [facility] Last Admin: 06/05/24 08:43 Dose: 0.25 mcg Documented By: JOSEFA Calcium Carbonate (Calcium Carbonate 750 Mg Tab.Chew) 750 mg PO Q4H PRN PRN Reason: Heartburn Dicyclomine HCl (Dicyclomine Hcl 10 Mg Capsule) 10 mg PO QID [facility] Last Admin: 06/05/24 20:09 Dose: 10 mg Documented By: JOSEPH Docusate Sodium (Docusate Sodium 100 Mg Capsule) 200 mg PO BEDTIME [facility] Last Admin: 06/05/24 20:08 Dose: 200 mg Documented By: JOSEPH Doxycycline Monohydrate (Doxycycline Monohydrate 100 Mg Capsule) 100 mg PO Q12H [facility] Last Admin: 06/06/24 01:40 Dose: Not Given Documented By: JOSEPH Non-Admin Reason: NPO Ferrous Sulfate (Ferrous Sulfate 324 Mg Tablet.Dr) 324 mg PO DAILY [facility] Last Admin: 06/05/24 08:44 Dose: 324 mg Documented By: JOSEFA Furosemide (Furosemide 20 Mg Tablet) 20 mg PO DAILY [facility]; Protocol Last Admin: 06/05/24 08:43 Dose: 20 mg Documented By: JOSEFA Gabapentin (Gabapentin 100 Mg Capsule) 100 mg PO BID@0800,1400 [facility] Last Admin: 06/05/24 13:54 Dose: 100 mg Documented By: JOSEFA Gabapentin (Gabapentin 600 Mg Tablet) 600 mg PO BEDTIME [facility] Last Admin: 06/05/24 20:10 Dose: 600 mg Documented By: JOSEPH Guaifenesin (Guaifenesin La 600 Mg Tab.Er.12h) 1,200 mg PO BID [facility] Last Admin: 06/05/24 20:10 Dose: 1,200 mg Documented By: JOSEPH Guaifenesin/Dextromethorphan (Guaifenesin Dm 100/10/5 Ml 5 Ml Syrup) 5 ml PO Q4H PRN PRN Reason: Cough Last Admin: 06/05/24 23:17 Dose: 5 ml Documented By: JOSEPH Cefepime HCl 1 gm/ Sodium (Chloride) 50 mls @ 100 mls/hr IV Q12H [facility] Last Infusion: 06/06/24 00:09 Dose: Infused Documented By: JOSEPH Levothyroxine Sodium (Levothyroxine Sodium 112 Mcg Tablet) 112 mcg PO DAILY@0600 [facility] Last Admin: 06/06/24 05:26 Dose: Not Given Documented By: JOSEPH Non-Admin Reason: NPO Levothyroxine Sodium (Levothyroxine Sodium 25 Mcg Tablet) 25 mcg PO DAILY@0600 [facility] Last Admin: 06/06/24 05:27 Dose: Not Given Documented By: JOSEPH Non-Admin Reason: NPO Magnesium Hydroxide (Milk Of Magnesia 30 Ml Oral.Susp) 30 ml PO DAILY PRN PRN Reason: Constipation Melatonin (Melatonin 3 Mg Tablet) 6 mg PO BEDTIME PRN PRN Reason: Insomnia Midodrine (Midodrine Hcl 10 Mg Tablet) 10 mg PO TIDAC [facility] Last Admin: 06/05/24 17:18 Dose: 10 mg Documented By: JOSEFA Multivitamins/Vitamin C (Multivitamin Tablet) 1 tab PO DAILY [facility] Last Admin: 06/05/24 08:42 Dose: 1 tab Documented By: JOSEFA Naloxone HCl (Naloxone Hcl 0.4 Mg/Ml Vial) 0.04 mg IVPUSH Q5M PRN PRN Reason: Excessive sedation or RR < 8 Nystatin (Nystatin Powder 15 Gm Bottle) 1 appl TOPICAL BID [facility]; Protocol Last Admin: 06/05/24 20:12 Dose: 1 appl Documented By: JOSEPH Ondansetron HCl (Ondansetron Hcl 4 Mg/2 Ml Vial) 4 mg IVPUSH ONCE PRN PRN Reason: Nausea and Vomiting Stop: 06/06/24 15:26 Oxybutynin Chloride (Oxybutynin Chloride Er 5 Mg Tab.Er.24) 10 mg PO DAILY [facility] Last Admin: 06/05/24 08:43 Dose: 10 mg Documented By: JOSEFA Scopolamine (Scopolamine 1.5 Mg Patch.Td.3) 1.5 mg EAR-BEHIND Q72H [facility] Last Admin: 06/04/24 12:24 Dose: 1.5 mg Documented By: SIDNEY Senna (Sennosides 8.6 Mg Tablet) 8.6 mg PO DAILY PRN PRN Reason: Constipation Sodium Chloride (0.9 % Sodium Chloride Flush 3 Ml Syringe) 3 ml IVFLUSH QSHIFT [facility] Last Admin: 06/06/24 07:45 Dose: 3 ml Documented By: JOSEFA Trazodone HCl (Trazodone Hcl 25 Mg Halftab) 75 mg PO BEDTIME [facility] Last Admin: 06/05/24 20:10 Dose: 75 mg Documented By: JOSEPH Labs 06/03/24 06:19 06/02/24 14:48 Microbiology Microbiology Results: Microbiology 06/02/24 11:00 Gram Stain - Final Bronchial Washings Routine Culture - Final Staphylococcus aureus Assessment and Plan (1) UTI (urinary tract infection): Status: Acute (2) Pneumonia: Status: Acute (3) Hypoxia: Status: Acute Plan 68-year-old male with a PMH significant for?paroxysmal AFib on Eliquis, paraplegia secondary to spinal cord injury, neurogenic bladder with chronic suprapubic catheter in place, recurrent UTIs, colostomy, pacemaker in place, hypothyroidism, chronic pain syndrome, and sacral decubitus ulcer who presents to the ED from snf with increased SOB, difficulty breathing, and non-productive cough since yesterday. Pt will be admitted to the hospital for treatment and further evaluation of acute hypoxic respiratory failure in the setting of community acquired pneumonia. Acute hypoxic respiratory failure with hypoxia due to pneumonia and difficulty with secretions chest CT - worsening volume loss and consolidation throughout right lung suspicious for pneumonia Initially treated with ceftriaxone and azithromycin; now on Cefepime and Doxy for staph Continue supplemental oxygen, wean as tolerated preent 90 on rooma continue mucomyst, mucinex, CPT Had bronchoscopy with clearance of mucous on 06/02, and may need repeat bronch, will discuss [facility] pulmonology try of scopolamine patch. Overall feeling better, seen by pulmonary vanco suggested by holding of since Staph Aurues Not MRSA and sensitive to Doxy for bronchoscopy again today Acute UTI due to suprapubic catheter history of recurrent UTIs. No sepsis urine culture growing Pseudomonas and Providencia - Cefepime and Doxy x 10 per ID, has midline pericardial effusion seen on CT - reported as similar to previous echo with small to moderate pericardial effusion - no significant change from prior study in december 2023 Chronic lower leg edema leg edema, chronic No hx of CHF, last echo 12/2023 no pulmonary edema on chest CT Continue baseline Lasix stage 3 (per notes from pervious admission) sacral decubitus ulcers. poa Follows with Wound Care Clinic Wound care consult Patient positioning q.2h HypOtension, chronic, not due to sepsis Continue midodrine History of paraplegia with neuropathy Continue baclofen, gabapentin Paroxysmal AFib Not on rate control agent Continue Eliquis Hypothyroidism Continue levothyroxine Full Code DVT Prophylaxis: Eliquis requires ongoing inpatient stay for treatment of?acute hypoxic respiratory failure in the setting of pneumonia requiring IV antibiotics, supplemental oxygen, and breathing treatments, specialist evaluation and close monitoring of respiratory status Quality Stroke Does the patient have a stroke diagnosis?: No VTE Prior VTE?: No VTE Risk Level:: Medical - moderate - high VTE Device Contraindication: Treatment Not Indicated VTE Drug Contraindication: N/A - Med Ordered
[2024-06-06] MEDS: Ascorbic Acid 500 MG TABLET PO (13:02)
[2024-06-06] MEDS: Midodrine HCl 10 MG TABLET PO ×2 (13:02→17:52)
[2024-06-06] MEDS: Multivitamin TABLET 1 TAB PO (13:02)
[2024-06-06] MEDS: guaiFENesin LA 600 MG TAB.ER.12H 1200 MG PO ×2 (13:02→21:49)
[2024-06-06] MEDS: Dicyclomine HCl 10 MG CAPSULE PO ×3 (13:03→21:49)
[2024-06-06] MEDS: Ferrous Sulfate 324 MG TABLET.DR PO (13:03)
[2024-06-06] MEDS: oxyBUTYnin chloride ER 5 MG TAB.ER.24 10 MG PO (13:03)
[2024-06-06] MEDS: calcitrioL 0.25 MCG CAPSULE PO (13:03)
[2024-06-06] MEDS: Furosemide 20 MG TABLET PO (13:03)
[2024-06-06] MEDS: Baclofen 20 MG TABLET PO ×2 (13:03→21:48)
[2024-06-06] MEDS: Nystatin Powder 15 GM BOTTLE 1 APPL TOPICAL ×2 (13:05→21:49)
[2024-06-06] MEDS: cefEPime HCl 1 GM in 0.9 % Sodium Chloride 50 ML IV ×2 (13:06→23:54)
--- NOTE | 2024-06-06 13:46 | HO.WOUND ---
Addendum entered by Kelly Canchola RN 06/07/24 11:31: 06/07/24 @11:00 Follow up for [employer] bed: Bed was delivered and patient was transitioned to new pulsate bed - the supplier did not deliver the correct bed to accommodate the patients height and did not deliver [place] sheets. Unit staff [place] will call [facility] to send correct bed to accommodate patients height and [place] sheets. Original Note: Wound Consult:Initial 68yr old Male? admitted to [facility] on 05/29/24 - See progress notes and H&P for detailed history.? Wound consult placed for multiple pressure injuries present on admission.? Patient is a paraplegic at baseline and wheelchair bound for mobility. Treats at the outpt wound clinic and has previous injury Bilateral Heels, coccyx, and Ischium. 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 The patient is a poor historian at times due to memory baseline but is non-interactive at this time given post procedure. In past consultations patient reported he was routinely strapped into his wheelchair and he believed the wounds to the left foot and right lateral leg are consistent with the straps. 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 Durafiber AG for moisture management Left Heel Etiology: Unstageable Pressure Injury - ?Present on Admission Wound bed - red moist wound bed Adherent malone slough full thickness tissue loss Periwound: red maroon slow to benjy tissue, dry scaling tissue red purple nonblanchable areas within periwound Goals of Treatment: ? Heel protector boots in place - Durafiber AG with ABd pad applied for moisture management Right Heel Etiology: Unstageable Pressure Injury - ?Present on Admission Wound bed - Adherent malone slough full thickness tissue loss Periwound: red slow to benjy tissue, dry scaling tissue Goals of Treatment: ? Heel protector boots in place - Durafiber AG with ABd pad applied for moisture management Left Dorsal foot Etiology: Stage 3 Pressure Injury - ?Present on Admission Wound bed - Red moist wound bed full thickness tissue loss Periwound: red slow to benjy tissue, dry scaling tissue Goals of Treatment: ? Durafiber AG with ABd pad applied for moisture management Buttock coccyx and posterior thighs and scrotum shows significant signs of chronic MASD (Moisture Associated Skin Damage). It is unclear where the moisture is originating from question is from penis, anus or leaking from the suprapubic cath site. Buttock posterior thighs, scrotum and bilateral groin - MASD (Moisture Associated Skin Damage) - Various areas of partial thickness tissue loss in patterns of friction and chronic MASD. The pigmentation of maroon, red, light purple is blanchable. Triad to protect from moisture and friction. Pressure injury prevention measures should continue to be employed to protect the skin from further pressure injury development. Direct care team to obtain Specialty Mattress from [employer], continue with Q2hr turns add wedges, and heel protector boots to be continued. Coccyx - Previously documented?Stage 3 Pressure Injury ?POA Goals of Treatment: ? Triad to allow for moist wound healing and to protect from friction and moisture Bilateral Buttock - Stage 3 Pressure Injury ?POA Goals of Treatment: ? Triad to allow for moist wound healing and to protect from friction and moisture Patient should continue to follow up with outpt wound clinic at time of discharge. Recommendations: 1. Turn and Reposition every 2 hours and as needed for patient comfort.? Use pillows or wedges to support off loading positions. Use wedges for off loading. 2. Off Load all bony prominences with use of heel boots.? Apply Preventative foams where needed. ?Heel Protectors in use. 3. Monitor for incontinence and moisture control, use barrier creams when needed for prevention and treatment. Barrier cream in use. 4. Provide adequate and supplemental nutrition.? 5. Order Specialty mattress from [employer] - Pulsate extra long - Not the [place]. 6. When applicable maintain blood glucose levels per Providers order. 7. Coccyx, Buttock, Thigh, scrotum and groin - Off Load Pressure - Cleanse with PH balance spray or wipes, pat dry. ?Apply thin layer of Triad to wound bed - only pat and dab no scrub and rub when soiling occurs. Reapply thin layer PRN after each episode of incontinence. 8. Right Lateral Leg, Left cifuentes , Left Dorsal Foot and Bilateral Heel - Cleanse with NS moist gauze, Apply barrier cream to periwound - apply Durafiber AG to wound bed cover with ABD pag and gauze wrap. Change every other day and PRN. Re-consult wound care Nurse for wound deterioration or wound changes.
--- NOTE | 2024-06-06 14:00 | PM.OP ---
Brief Operative Note Date of Service: 06/06/24 Pre-op diagnosis: complete right lung collapse Post-op diagnosis: same Procedure: bronchoscopy with therapeutic suctioning Surgeon: Dru Murillo MD Anesthesia: MAC Was an Senior Sql Server Database Developer used for this Procedure?: No Estimated blood loss (mL): 0 Pathology: none sent Condition: stable Disposition: floor
[2024-06-06] MEDS: Doxycycline Monohydrate 100 MG CAPSULE PO (14:19)
[2024-06-06] MEDS: Gabapentin 100 MG CAPSULE PO (14:19)
[2024-06-06] MEDS: guaiFENesin DM 100/10/5 ML 5 ML SYRUP PO ×2 (14:25→23:55)
--- NOTE | 2024-06-06 15:22 | OP_ITS ---
DATE OF SERVICE: 06/06/2024 SURGEON: Dru Murillo MD PREOPERATIVE DIAGNOSIS: Complete right lung collapse. POSTOPERATIVE DIAGNOSIS: Complete right lung collapse. PROCEDURE PERFORMED: Bronchoscopy with therapeutic suctioning of mucus plugs. ESTIMATED BLOOD LOSS: COMPLICATIONS: No complications noted. ANESTHESIA: MAC. ASSISTANTS: SPECIMENS: ASA: IV. DESCRIPTION OF PROCEDURE: After the patient was adequately sedated, the flexible digital bronchoscope was inserted in the mouth to the level of the larynx. The vocal cords were dry and did have some purulent secretions around them and his epiglottis was narrow. After instilling lidocaine, the bronchoscope was then passed the vocal cords to the level of the trachea. The patient had purulent tenacious secretions mid way up the trachea causing complete collapse. There was also some degree of tracheomalacia. The bronchoscope was navigated to the entire tracheobronchial tree and therapeutic suctioning was done with saline, removing the very tenacious purulent secretions. Have to come out a few times because the suction port would get obstructed. Using 10% Mucomyst, a total of 4 cc were introduced into the right mainstem and that will breakdown some secretions. The bronchial washings were sent for culture and cytology. After all the secretions were removed, the patient did have some significant friable mucosa primarily in the right lower lobe area and also in the right upper lobe area suggesting of the bronchopneumonia. The patient tolerated the procedure well. Vital signs were stable. Procedure lasted a total of 20 minutes. REVENUE ANALYST: None. MD JI Wheeler/MAURO / [phone]
[2024-06-06] MEDS: Heparin Sodium,Porcine Flush 50 UNITS, 0.9 % Sodium Chloride Flush 5 ML IVFLUSH ×2 (17:51→23:53)
--- NOTE | 2024-06-06 18:14 | PC.NURSE ---
AM meds given late due to patient being in OR.
[2024-06-06] MEDS: Docusate Sodium 100 MG CAPSULE 200 MG PO (21:48)
[2024-06-06] MEDS: Baclofen 20 MG TABLET 40 MG PO (21:48)
[2024-06-06] MEDS: traZODone HCL 25 MG HALFTAB 75 MG PO (21:49)
[2024-06-06] MEDS: Gabapentin 600 MG TABLET PO (21:49)
[2024-06-07] VITALS (10 sets, daily range): BP systolic 97–127; BP diastolic 53–63; PULSE 59–64; RESP 18–20; TEMP 36–37; O2SAT 91–98
[2024-06-07] MEDS: Levothyroxine Sodium 112 MCG TABLET PO (05:30)
[2024-06-07] MEDS: Baclofen 20 MG TABLET PO ×3 (05:30→18:22)
[2024-06-07] MEDS: Doxycycline Monohydrate 100 MG CAPSULE PO ×2 (05:30→15:05)
[2024-06-07] MEDS: Levothyroxine Sodium 25 MCG TABLET PO (05:31)
[2024-06-07] MEDS: guaiFENesin DM 100/10/5 ML 5 ML SYRUP PO ×2 (05:32→23:52)
[2024-06-07] MEDS: calcitrioL 0.25 MCG CAPSULE PO (08:01)
[2024-06-07] MEDS: Gabapentin 100 MG CAPSULE PO ×2 (08:01→13:30)
[2024-06-07] MEDS: Dicyclomine HCl 10 MG CAPSULE PO ×4 (08:02→23:33)
[2024-06-07] MEDS: Ascorbic Acid 500 MG TABLET PO (08:02)
[2024-06-07] MEDS: Ferrous Sulfate 324 MG TABLET.DR PO (08:02)
[2024-06-07] MEDS: Multivitamin TABLET 1 TAB PO (08:02)
[2024-06-07] MEDS: guaiFENesin LA 600 MG TAB.ER.12H 1200 MG PO ×2 (08:02→23:34)
[2024-06-07] MEDS: Midodrine HCl 10 MG TABLET PO ×3 (08:03→17:34)
[2024-06-07] MEDS: Heparin Sodium,Porcine Flush 50 UNITS, 0.9 % Sodium Chloride Flush 5 ML IVFLUSH ×3 (08:04→23:37)
[2024-06-07] MEDS: 0.9 % Sodium Chloride Flush 3 ML SYRINGE IVFLUSH ×3 (08:09→23:45)
[2024-06-07] MEDS: oxyBUTYnin chloride ER 5 MG TAB.ER.24 10 MG PO (08:11)
[2024-06-07] MEDS: Nystatin Powder 15 GM BOTTLE 1 APPL TOPICAL ×2 (08:23→23:34)
[2024-06-07] MEDS: Albuterol/Iprat 2.5/0.5MG 3 ML AMPUL.NEB INHALE (08:58)
[2024-06-07] MEDS: Acetylcysteine 10 % 400 MG/4 ML VIAL INHALE ×2 (09:02→19:11)
[2024-06-07] MEDS: Clindamycin Phosphate/D5W 300 MG/50 ML PIGGYBACK 100 MG IV ×2 (10:00→17:34)
--- NOTE | 2024-06-07 10:49 | HO.POSTANES ---
Post Anesthesia Evaluation Post Anesthesia Evaluation Date of Service: 06/07/24 Vital Signs: Vital Signs Temp Pulse Resp BP Pulse Ox O2 Del Method O2 Flow Rate 06/07/24 09:03 61 18 06/07/24 07:30 97.8 F 63 18 97/60 98 Nasal Cannula 5 06/07/24 03:17 96.8 F 59 20 104/53 L 96 Nasal Cannula 5 06/06/24 22:59 97.3 F 61 18 108/55 L 93 Nasal Cannula 5 Anesthesia: Monitored Mental Status: Awake Pain Control: Satisfactory Nausea/Vomiting: None Hydration: Adequate Anesthesia-Related Issues: No Anes. Related Issues
--- NOTE | 2024-06-07 11:19 | MHC.CM.PN ---
Per MD rounds patient not medically cleared for discharge. Plan for goals of care conversation. Continue IV abx w/ end date 06/11 - [facility].
[2024-06-07] MEDS: Scopolamine 1.5 MG PATCH.TD.3 EAR-BEHIND (11:42)
[2024-06-07] MEDS: cefEPime HCl 1 GM in 0.9 % Sodium Chloride 50 ML IV ×2 (11:43→23:44)
--- NOTE | 2024-06-07 12:19 | P.PNIM_ITS ---
Subjective Subjective Date of Service: 06/07/24 Interval History: seen and examined this morning follow up for pneumonia and difficulty managing secreations s/p bronch on 06/02. xray 06/05 show right complete opacity and had another brochoscopy with lavage on 06/06 and noted to have significant airway inflamation Physical Exam 2 Vital Signs: Vital Signs: Last Vital Signs Temp 98.6 F 06/07/24 11:55 Pulse 64 06/07/24 12:07 Resp 18 06/07/24 12:07 BP 115/56 L 06/07/24 11:55 Pulse Ox 94 06/07/24 12:07 O2 Del Method Nasal Cannula 06/07/24 11:55 O2 Flow Rate 3 06/07/24 11:55 Oxygen Flow Rate 5 06/07/24 09:00 BMI result Body Mass Index 35.1 Const: General: cooperative HEENT: Face and sinus: Yes normal facial exam Mouth: Normal oral and palatal mucosa present Teeth and gingiva: dentition normal Eyes: General: appearance normal, both eyes and all related structures P upils: Equal, round and reactive pupils present Resp: Effort & Inspection: normal respiratory effort Cardio: Rate: regular rate Rhythm: regular rhythm GI: Palpation (GI): Soft to palpation and nontender : Other: [place] bag with hematuria General: Yes no CVA tenderness Back/Spine/Pelvis: Back: no CVA tenderness Skin: General skin exam: no rashes or lesions noted Neuro: General: moves all extremities Cranial nerves: Yes Equal, round and reactive pupils present Extrem: Other: weakness lower extremities Objective Data Active Medications Acetaminophen (Acetaminophen 325 Mg Tablet) 650 mg PO Q6H PRN PRN Reason: Pain, Mild 1-3,fever,headache Acetylcysteine (Acetylcysteine 10 % 400 Mg/4 Ml Vial) 400 mg INHALE RBID [facility] Last Admin: 06/07/24 09:02 Dose: 400 mg Documented By: JOLENE Albuterol/Ipratropium (Albuterol/Iprat 2.5/0.5mg 3 Ml Ampul.Neb) 3 ml INHALE RQ4H WHILE AWAKE PRN PRN Reason: Shortness of Breath/Wheezing Last Admin: 06/07/24 08:58 Dose: 3 ml Documented By: JOLENE Apixaban (Apixaban 5 Mg Tablet) 5 mg PO BID [facility] Last Admin: 12/29/24 08:10 Dose: Not Given Documented By: HUGH Non-Admin Reason: NPO Ascorbic Acid (Ascorbic Acid 500 Mg Tablet) 500 mg PO DAILY [facility] Last Admin: 06/07/24 08:02 Dose: 500 mg Documented By: MUKUND Baclofen (Baclofen 20 Mg Tablet) 20 mg PO TID@0700,1200,1900 [facility] Last Admin: 06/07/24 11:42 Dose: 20 mg Documented By: MUKUND Baclofen (Baclofen 20 Mg Tablet) 40 mg PO BEDTIME [facility] Last Admin: 06/06/24 21:48 Dose: 40 mg Documented By: JAMES Calcitriol (Calcitriol 0.25 Mcg Capsule) 0.25 mcg PO DAILY [facility] Last Admin: 06/07/24 08:01 Dose: 0.25 mcg Documented By: MUKUND Calcium Carbonate (Calcium Carbonate 750 Mg Tab.Chew) 750 mg PO Q4H PRN PRN Reason: Heartburn Heparin Sodium (Porcine) 50 (units/ Sodium Chloride 5 ml) 0 units IVFLUSH QSHIFT [facility] Last Admin: 06/07/24 08:04 Dose: 50 unit Documented By: MUKUND Dicyclomine HCl (Dicyclomine Hcl 10 Mg Capsule) 10 mg PO QID [facility] Last Admin: 06/07/24 08:02 Dose: 10 mg Documented By: MUKUND Docusate Sodium (Docusate Sodium 100 Mg Capsule) 200 mg PO BEDTIME [facility] Last Admin: 06/06/24 21:48 Dose: 200 mg Documented By: JAMES Doxycycline Monohydrate (Doxycycline Monohydrate 100 Mg Capsule) 100 mg PO Q12H [facility] Last Admin: 06/07/24 05:30 Dose: 100 mg Documented By: JAMES Ferrous Sulfate (Ferrous Sulfate 324 Mg Tablet.Dr) 324 mg PO DAILY [facility] Last Admin: 06/07/24 08:02 Dose: 324 mg Documented By: MUKUND Furosemide (Furosemide 20 Mg Tablet) 20 mg PO DAILY [facility]; Protocol Last Admin: 06/07/24 08:24 Dose: Not Given Documented By: MUKUND Non-Admin Reason: Physician Held Med Gabapentin (Gabapentin 100 Mg Capsule) 100 mg PO BID@0800,1400 [facility] Last Admin: 06/07/24 08:01 Dose: 100 mg Documented By: MUKUND Gabapentin (Gabapentin 600 Mg Tablet) 600 mg PO BEDTIME [facility] Last Admin: 06/06/24 21:49 Dose: 600 mg Documented By: JAMES Guaifenesin (Guaifenesin La 600 Mg Tab.Er.12h) 1,200 mg PO BID [facility] Last Admin: 06/07/24 08:02 Dose: 1,200 mg Documented By: MUKUND Guaifenesin/Dextromethorphan (Guaifenesin Dm 100/10/5 Ml 5 Ml Syrup) 5 ml PO Q4H PRN PRN Reason: Cough Last Admin: 06/07/24 05:32 Dose: 5 ml Documented By: JAMES Cefepime HCl 1 gm/ Sodium (Chloride) 50 mls @ 100 mls/hr IV Q12H [facility] Last Admin: 06/07/24 11:43 Dose: 100 mls/hr Documented By: MUKUND Clindamycin Phosphate (Cleocin) 300 mg in 50 mls @ 100 mls/hr IV Q8H [facility] Levothyroxine Sodium (Levothyroxine Sodium 112 Mcg Tablet) 112 mcg PO DAILY@0600 [facility] Last Admin: 06/07/24 05:30 Dose: 112 mcg Documented By: JAMES Levothyroxine Sodium (Levothyroxine Sodium 25 Mcg Tablet) 25 mcg PO DAILY@0600 [facility] Last Admin: 06/07/24 05:31 Dose: 25 mcg Documented By: JMAES Magnesium Hydroxide (Milk Of Magnesia 30 Ml Oral.Susp) 30 ml PO DAILY PRN PRN Reason: Constipation Melatonin (Melatonin 3 Mg Tablet) 6 mg PO BEDTIME PRN PRN Reason: Insomnia Midodrine (Midodrine Hcl 10 Mg Tablet) 10 mg PO TIDAC [facility] Last Admin: 06/07/24 11:42 Dose: 10 mg Documented By: MUKUND Multivitamins/Vitamin C (Multivitamin Tablet) 1 tab PO DAILY [facility] Last Admin: 06/07/24 08:02 Dose: 1 tab Documented By: MUKUND Naloxone HCl (Naloxone Hcl 0.4 Mg/Ml Vial) 0.04 mg IVPUSH Q5M PRN PRN Reason: Excessive sedation or RR < 8 Nystatin (Nystatin Powder 15 Gm Bottle) 1 appl TOPICAL BID [facility]; Protocol Last Admin: 06/07/24 08:23 Dose: 1 appl Documented By: MUKUND Oxybutynin Chloride (Oxybutynin Chloride Er 5 Mg Tab.Er.24) 10 mg PO DAILY [facility] Last Admin: 06/07/24 08:11 Dose: 10 mg Documented By: MUKUND Scopolamine (Scopolamine 1.5 Mg Patch.Td.3) 1.5 mg EAR-BEHIND Q72H [facility] Last Admin: 06/07/24 11:42 Dose: 1.5 mg Documented By: MUKUND Senna (Sennosides 8.6 Mg Tablet) 8.6 mg PO DAILY PRN PRN Reason: Constipation Sodium Chloride (0.9 % Sodium Chloride Flush 3 Ml Syringe) 3 ml IVFLUSH QSHIFT [facility] Last Admin: 06/07/24 08:09 Dose: 3 ml Documented By: MUKUND Trazodone HCl (Trazodone Hcl 25 Mg Halftab) 75 mg PO BEDTIME [facility] Last Admin: 06/06/24 21:49 Dose: 75 mg Documented By: JUANIK Labs 06/03/24 06:19 06/02/24 14:48 Microbiology Microbiology Results: Microbiology 06/06/24 09:50 Gram Stain - Final Bronchial Washings Routine Culture - Preliminary Corynebacterium species Assessment and Plan (1) UTI (urinary tract infection): Status: Acute (2) Pneumonia: Status: Acute (3) Pulmonary atelectasis: Status: Acute Plan 68-year-old male with a PMH significant for?paroxysmal AFib on Eliquis, paraplegia secondary to spinal cord injury, neurogenic bladder with chronic suprapubic catheter in place, recurrent UTIs, colostomy, pacemaker in place, hypothyroidism, chronic pain syndrome, and sacral decubitus ulcer who [facility] the ED [facility] with increased SOB, difficulty breathing, and non- productive cough since yesterday. Pt will be admitted to the hospital for treatment and further evaluation of acute hypoxic respiratory failure in the setting of community acquired pneumonia. Acute hypoxic respiratory failure with hypoxia due to pneumonia and difficulty with secretions chest CT - worsening volume loss and consolidation throughout right lung suspicious for pneumonia Initially treated with ceftriaxone and azithromycin; now on Cefepime and Doxy for staph Continue supplemental oxygen, wean as tolerated present 90 on rooma continue mucomyst, mucinex, CPT Had bronchoscopy with clearance of mucous on 06/02, and again on 06/06 and pulmonary believes this will be an ongoing problem. Sputum culture is growing staph A. and Doxy is changed to Clindamyin along with Cefepime will have goal of care conversation with the patient Acute UTI due to suprapubic catheter history of recurrent UTIs. No sepsis urine culture growing Pseudomonas and Providencia - Cefepime x 10 per ID pericardial effusion on CT, echo show small effusion, unchanged since december 2023 Chronic lower leg edema, chronic and not due to chf stage 3 (per notes from pervious admission) sacral decubitus ulcers. poa [facility]s [facility] Wound care consult Patient positioning q.2h HypOtension, chronic, not due to sepsis Continue and midodrine, hold lasix if bp on low side History of paraplegia with neuropathy Continue baclofen, gabapentin Paroxysmal AFib Not on rate control agent Continue Eliquis Hypothyroidism Continue levothyroxine Full Code DVT Prophylaxis: Eliquis requires ongoing inpatient stay for treatment of?acute hypoxic respiratory failure in the setting of pneumonia requiring IV antibiotics, supplemental oxygen, and breathing treatments, specialist evaluation and close monitoring of respiratory status Quality Stroke Does the patient have a stroke diagnosis?: No VTE Prior VTE?: No VTE Risk Level:: Medical - moderate - high VTE Device Contraindication: Treatment Not Indicated VTE Drug Contraindication: N/A - Med Ordered
--- NOTE | 2024-06-07 12:38 | P.PNPL_ITS ---
Subjective Subjective Date of Service: 06/07/24 Interval history: The patient was seen on exam. He is status post bronchoscopy. Has significant purulence secretions in the central airways right more than left. Therapeutic suctioning successful. Significant friable mucosa underneath it. His cultures still pending but his Gram stain demonstrates some Gram positive rods. Therefore need to consider anaerobic organisms. Will add clindamycin to his regimen. Likely polymicrobial since he has micro aspirating into the lungs. He also needs to work on chest PT and laying on his right side up specially since he tends to aspirate into the right lung. In view of his significant paresis and we can respiratory muscles is very likely that this will happen again and is likely that he will end up with a tracheostomy. A tracheostomy at least will help him handle his secretions. But if he does have a tracheostomy would need to be in a place where they can handle the tracheostomy 26/12. Objective Data Labs 06/03/24 06:19 06/02/24 14:48 Microbiology Microbiology Results: Microbiology 06/06/24 09:50 Bronchial Washings Gram Stain - Final 06/06/24 09:50 Bronchial Washings Routine Culture - Preliminary Corynebacterium species 06/02/24 11:00 Bronchial Washings Gram Stain - Final 06/02/24 11:00 Bronchial Washings Routine Culture - Final Staphylococcus aureus 05/29/24 12:41 Blood - Venous Blood Culture - Final No growth after 5 days. 05/29/24 12:41 Blood - Venous Blood Culture - Final No growth after 5 days. 05/29/24 Unknown Urine Catheterized - [place] Catheter Urine Culture - Final Pseudomonas aeruginosa Providencia rettgeri Review of Systems Cardiovascular: Denies chest pain and Reports dyspnea Respiratory: Reports cough, Denies excessive phlegm production and Reports dyspnea Physical Exam 2 Vital Signs: Vital Signs: Last Vital Signs Temp 98.6 F 06/07/24 11:55 Pulse 64 06/07/24 12:07 Resp 18 06/07/24 12:07 BP 115/56 L 06/07/24 11:55 Pulse Ox 94 06/07/24 12:07 O2 Del Method Nasal Cannula 06/07/24 11:55 O2 Flow Rate 3 06/07/24 11:55 Oxygen Flow Rate 5 06/07/24 09:00 BMI result Body Mass Index 35.1 Const: General: cooperative HEENT: Face and sinus: Yes normal facial exam Mouth: Normal oral and palatal mucosa present Teeth and gingiva: dentition normal Eyes: General: appearance normal, both eyes and all related structures P upils: Equal, round and reactive pupils present Neck: Neck: Yes normal visual inspection Chest: Chest palpation & inspection: normal inspection of the chest Resp: Effort & Inspection: normal respiratory effort Auscultation: d iminished lung sounds Cardio: Rate: regular rate Rhythm: regular rhythm GI: Palpation (GI): Soft to palpation and nontender : Other: [place] bag with hematuria General: Yes no CVA tenderness Back/Spine/Pelvis: Back: no CVA tenderness Skin: General skin exam: no rashes or lesions noted Neuro: Cranial nerves: Yes Equal, round and reactive pupils present Motor exam (neuro): Motor abnormalites present Extrem: Other: weakness lower extremities Procedures Date of Service Date of Service: 06/07/24 Assessment and Plan Assessment and plan (1) Pulmonary atelectasis: Status: Acute (2) Pneumonia: Status: Acute Plan Adding Clindamycin CPT oxygen supplementation Consider Tracheostomy for deep suctioning. Pt will think about it. Time Spent With Patient Time: Total time managing care of this patient today ____ minutes. Progress Note: Quality Stroke Does the patient have a stroke diagnosis?: No
--- NOTE | 2024-06-07 14:32 | MHC.CLN ---
F/U PT WITH INCREASED NUTRITION RISK R/T PRESSURE INJURY PO INTAKE VARIABLE RANGING FROM 25-100% DIET=REGULAR. ENSURE MAX BID (300 KCALS, 60 G PROTEIN) TO PROMOTE WOUND HEALING CONTINUE TO MONITOR PO INTAKE AND ENCOURAGE SUPPLEMENT
[2024-06-07] MEDS: traZODone HCL 25 MG HALFTAB 75 MG PO (23:32)
[2024-06-07] MEDS: Docusate Sodium 100 MG CAPSULE 200 MG PO (23:33)
[2024-06-07] MEDS: Baclofen 20 MG TABLET 40 MG PO (23:33)
[2024-06-07] MEDS: Gabapentin 600 MG TABLET PO (23:34)
[2024-06-08] VITALS (41 sets, daily range): BP systolic 73–199; BP diastolic 34–101; PULSE 60–98; RESP 14–21; TEMP 32–36.7; O2SAT 35–100
[2024-06-08] MEDS: Doxycycline Monohydrate 100 MG CAPSULE PO ×2 (02:11→15:44)
[2024-06-08] MEDS: Clindamycin Phosphate/D5W 300 MG/50 ML PIGGYBACK 100 MG IV ×3 (02:11→18:13)
--- NOTE | 2024-06-08 04:34 | P.EN_ITS ---
Event Note Date of Service: 06/08/24 Event Note: Code blue called overhead Patient was found unresponsive by the nurse. As per the nurse, he was previously checked about 8 minutes prior to the code being called when he was seen doing okay. No pulse upon examination. Resuscitation began as per ACLS protocol. He was asystole on property assessment monitor. Patient was given multiple rounds of epinephrine, bicarb during the code. Please refer to the code sheet for further details. Patient was intubated by ER provider, Dr Devine. ROSC achieved 04:30. Patient will be transferred to ICU for further evaluation and treatment. Tried calling the sister but the number in the chart is not in service. Time Spent With Patient Time: Total time managing care of this patient today ____ minutes.
[2024-06-08 04:56] LABS: Glucose, Whole Blood 170 mg/dL (60-115)
--- NOTE | 2024-06-08 04:56 | PC.NURSE ---
Patient had no acute issues stated or observed tonight. Patient had a loose ronchorus, non productive cough and was on 5L n/c with sats maintaining 93-95%. Approx 0415 RN advised that patients oxygen sat was 40% on rounding. RN was just with patient approx 8 minutes prior after patient rang his call becerra because he stated he couldnt sleep. RN went in to assess patient who wasnt breathing was lorenzo, and didnt have a pulse. First ROLL HAND, then immediately after jamie rivera was called. Nursing car wash supervisor first at bedside who was rounding, then Jamie Rivera team immediately showed up. Chest compressions started and code conducted. Patient regained a pulse and was brought to the ICU by 0445.
--- NOTE | 2024-06-08 05:14 | PM.CCN ---
Critical Care Event Note Summary Date of Service: 06/08/24 Code activated: Yes Narrative: This case had a high probability of a clinically significant, sudden, or life threatening deterioration of this patient's condition which required my full and direct attention, intervention and personal management. Critical Care Time (minutes): 20 Comment: Cuauhtemoc rivera was called at 04:22 I assisted to it, directed the code, on arrival the patient had no pulse, was on asystole, CPR and ACLS protocol was started immediately. Patient hooked to the monitor, he received 3 rounds of epinephrine, blood sugar was 186, 1 amp of bicarb, 1 g of calcium gluconate. I attempted intubation but there was a lot of secretions in the posterior oropharynx which I suctioned. Pulse was checked in positive, rhythm on the monitor sinus tachycardia 106 beats per minute. ROSC obtained at 0430am. Immediately after ER physician Dr. North intubated the patient, positive change with capnography. Patient was transferred to the ICU for further care. Hospitalist Dr. Stack, present during the event. Critical care time used for critical evaluation of this patient, diagnosis, treatment and coordination of care, review her records and documentation TOTAL CRITICAL CARE TIME 20 MIN . discussion and coordination with consultants, completely separate from any procedures performed. Patient's care was discussed in detail with Dr. Alves. He is aware of all the above as well as the plan of care for this patient.
[2024-06-08 05:19] LABS: ABG Base Excess 15.4 mmol/L; ABG HCO3 41 mmol/L (22-26); ABG pCO2 57 mmHg (32-45); ABG pH 7.46 (7.35-7.45); ABG pO2 65 mmHg (83-108)
[2024-06-08 05:19] LABS: MANUAL DIFF FLAG NO
--- NOTE | 2024-06-08 05:19 | W.PM.CCHP ---
Procedures Date of Service Date of Service: 06/08/24 Central Line Placement Left IJ: Central Line Comments: A quick time-out was made for clarification and proper patient identification, patient was positioned, landmarks were identified, US used to locate a large compressible IJ. The left neck was widely prepped and draped in a full sterile fashion. Ultrasound was used to locate again the left IJ, the vein was cannulated on the 1st pass with an 18 gauge thin needle, dark nonpulsatile blood return was obtained. The wire was threaded, a small incision was made at its base and dilator inserted. A triple-lumen central venous catheter was advanced into the vein up to the hub without problems, wired was removed. Ports had good blood return and flushed x3. The catheter was secured with 3 sutures at 3 sites, a Biopatch and dry sterile dressing were applied. Post procedure chest x-ray showed the line to be in good position without pneumothorax. No bleeding or complications noted. Consent for Procedure: Emergent-no informed consent obtained
[2024-06-08 05:30] LABS: Basophils Percent Auto 0.4 % (0-2); Eosinophils Absolute Auto 0.2 X10*3/uL (0.0-0.4); Hematocrit 30.4 % (42.0-52.0); Hemoglobin 9.6 g/dl (14.0-18.0); Imm Gran Abs Auto 0.39 X10*3/uL (0.00-0.03); Lymphocytes Absolute Auto 2.5 X10*3/uL (1.2-4.9); Lymphocytes Percent Auto 31.8 % (20-40); Mean Corpuscular HGB Conc 31.6 g/dl (31.0-36.0); Mean Corpuscular Hemoglobin 28.5 pg (27.0-33.0); Mean Corpuscular Volume 90.2 fL (80.0-98.0); Monocytes Absolute Auto 0.3 X10*3/uL (0.1-1.2); Monocytes Percent Auto 4.2 % (2-11); Neutrophils Absolute Auto 4.4 x10*3/uL (2.0-8.3); Neutrophils Percent Auto 56.6 % (45-73); Platelet Count 230 X10*3/uL (160-400); Red Blood Count 3.37 X10*6/uL (4.60-5.80); Red Cell Distribution Width 16.5 % (11.0-16.0); White Blood Count 7.8 X10*3/uL (4.8-10.8)
[2024-06-08 05:31] LABS: ABG Refer to POC result
[2024-06-08] MEDS: Norepinephrine Bitartrate/D5W 8 MG/250 ML PLAST..BAG 4.91 MG IVCONT (05:40)
[2024-06-08] MEDS: propofoL 1,000 MG/100 ML VIAL 15.71 MG IVCONT ×2 (05:40→10:07)
[2024-06-08] MEDS: propofoL 200 MG/20 ML VIAL 100 MG IVPUSH (05:40)
[2024-06-08] MEDS: Albuterol Sulfate (0.083%) 2.5 MG/3 ML VIAL.NEB 10 MG INHALE (05:46)
[2024-06-08 05:52] LABS: Troponin-I High Sensitivity 19.6 ng/L (<3.5-35.0)
[2024-06-08 05:54] LABS: Alanine Aminotransferase 23 U/L (0-40); Albumin Level 3.2 g/dL (3.5-5.0); Alkaline Phosphatase 64 U/L (39-117); Anion Gap 15 (12-20); Aspartate Amino Transferase 36 U/L (5-37); B Type Natriuretic Peptide 150 pg/mL (<100); Bilirubin Total 0.5 mg/dL (0.0-1.0); Blood Urea Nitrogen 14 mg/dL (9-16); Calcium 9.4 mg/dL (8.4-10.2); Carbon Dioxide 34 mmol/L (22-29); Chloride 95 mmol/L (96-108); Creatinine Clr Calc Pharmacy 182.5; Estimated Glomerular Filt Rate > 60; Glucose Random 168 mg/dL (60-115); Magnesium 1.8 mg/dL (1.6-2.6); Phosphorus 4.4 mg/dL (2.7-4.5); Potassium 3.7 mmol/L (3.3-5.1); Sodium 140 mmol/L (135-145); Total Protein 6.1 g/dL (6.5-8.0)
[2024-06-08 05:55] LABS: Lactic Acid 3.4 mmol/L (0.5-2.0)
[2024-06-08 06:08] LABS: Thyroid Stimulating Hormone 4.74 uIU/mL (0.32-4.0)
--- NOTE | 2024-06-08 07:12 | PC.NURSE ---
Pt arrived to ICU at 0455 from Med-Surg post code. Pt arrived intubated ET tube #7.5 25 cm?@ lip, vent settings - AC/VC 14/500/10/90%. RT at bedside suctioning thick malone/blood streaked secretions from ET tube, sputum culture sent. Left IJ TLC placed by Dmitry Orantes, og tube placed - cxr completed to confirm placements. HR 60s a-paced on tele. BP soft 92/56 - levophed gtt started per PA. Pt opens eyes spontaneously - does not track, pt has no cough, weak gag, grimaces to deep pain, moves upper extremities weakly. Propofol gtt started?per PA. Soft limb restraints in place for safety. Suprapubic cath draining tea-colored urine, colostomy draining brown thick pasty stool. Wound dsgs to bilateral heel intact, coccyx macerated with multiple open areas - triad applied per wound nurse.?
[2024-06-08 07:17] LABS: Reflex Lactate? Lactic Acid Added
[2024-06-08] MEDS: Levothyroxine Sodium 25 MCG TABLET PO (07:40)
[2024-06-08] MEDS: Levothyroxine Sodium 112 MCG TABLET PO (07:41)
[2024-06-08] MEDS: 0.9 % Sodium Chloride Flush 3 ML SYRINGE IVFLUSH ×3 (07:41→23:55)
[2024-06-08] MEDS: Acetylcysteine 10 % 400 MG/4 ML VIAL INHALE ×2 (07:42→19:11)
[2024-06-08] MEDS: Albuterol/Iprat 2.5/0.5MG 3 ML AMPUL.NEB INHALE (07:42)
[2024-06-08 08:31] LABS: ~Lactic Acid-LAB USE ONLY 2.4 mmol/L (0.5-2.0)
--- NOTE | 2024-06-08 09:47 | P.CONCC_ITS ---
History of Present Illness Data of Consult Service Date: 06/08/24 Primary Care Provider: Yulia Mckeon MD [facility] Reason for consult: Cardiac arrest 68-year-old gentleman with a PMH of?paroxysmal AFib on Eliquis, paraplegia secondary to spinal cord injury, neurogenic bladder with chronic suprapubic catheter in place, recurrent UTIs, colostomy, pacemaker in place, hypothyroidism, chronic pain syndrome, and sacral decubitus ulcer admitted to the hospital on 05/29/2024 for the management of pneumonia. Chest x-ray and CT chest upon admission showed right middle and lower lobe collapse so he underwent bronch on 06/02. xray 06/05 show right complete opacity and had another brochoscopy with lavage on 06/06 he was noted to have significant purulent secretions coming out from the right lung more than the left lung that was lavaged during the bronchoscopy. Bronchoscopic lavage was polymicrobial including staph and Corynebacterium so his antibiotics were appropriately adjusted. On the morning of 06/08/2024 patient went into cardiac arrest, total down time of about 8 minutes before ask, intubated and on ventilator support so transferred to medical ICU. Review of Systems 2 Review of Systems: Unable to obtain as patient is intubated and is on the ventilator support [facility] Past Medical History Medical History Suprapubic catheter dysfunction Neurogenic bladder Quadriplegia, C5-C7 incomplete Atrial fibrillation Chronic restrictive lung disease Pneumonia Urine retention Irreducible left inguinal hernia Autonomic dysfunction Hypothyroidism Hernia Spasms of the hands or feet Spinal cord injury Family History Family History Sister Diabetes mellitus Family history: reviewed and not pertinent Surgical History Surgical History Chronic suprapubic catheter S/P tendon repair H/O hemorrhoidectomy S/P IVC filter H/O hernia repair H/O thyroidectomy Social History Social History Household Members: None Household Members Other:: detention Housing: [facility] Housing Other:: detention in [place] Do you presently have visiting nurse or other home services: No Alcohol intake: former Comment: pt paraplegic Patient Tobacco Use Status: Never used Tobacco Advance Directives Date on File: 01/09/23 service: No Meds Allergies Allergy/AdvReac Type Severity Reaction Status Date / Time dicloxacillin [From DYNAPEN] Allergy Unknown Unknown Verified 05/29/24 11:55 ofloxacin [From FLOXIN] AdvReac Intermediate Abdominal Verified 05/29/24 11:55 Pain penicillin V AdvReac Intermediate Abdominal Verified 05/29/24 11:55 Pain Active Medications: Current Medications Acetylcysteine (Acetylcysteine 10 % 400 Mg/4 Ml Vial) 400 mg INHALE RBID [facility] Last Admin: 06/08/24 07:42 Dose: 400 mg Albuterol/Ipratropium (Albuterol/Iprat 2.5/0.5mg 3 Ml Ampul.Neb) 3 ml INHALE RQ4H WHILE AWAKE PRN PRN Reason: Shortness of Breath/Wheezing Last Admin: 06/08/24 07:42 Dose: 3 ml Doxycycline Monohydrate (Doxycycline Monohydrate 100 Mg Capsule) 100 mg PO Q12H [facility] Last Admin: 06/08/24 02:11 Dose: 100 mg Cefepime HCl 1 gm/ Sodium (Chloride) 50 mls @ 100 mls/hr IV Q12H [facility] Last Infusion: 06/08/24 00:15 Dose: Infused Clindamycin Phosphate (Cleocin) 300 mg in 50 mls @ 100 mls/hr IV Q8H [facility] Last Infusion: 06/08/24 05:02 Dose: Infused Propofol (Diprivan) 1,000 mg in 100 mls @ 0 mls/hr IVCONT .Q0M [facility]; Protocol Last Admin: 06/08/24 05:40 Dose: 20 mcg/kg/min, 15.71 mls/hr Norepinephrine Bitartrate (Levophed) 8 mg in 250 mls @ 0 mls/hr IVCONT .Q0M [facility]; Protocol Last Admin: 06/08/24 05:40 Dose: 0.02 mcg/kg/min, 4.91 mls/hr Levothyroxine Sodium (Levothyroxine Sodium 112 Mcg Tablet) 112 mcg PO DAILY@0600 [facility] Last Admin: 06/08/24 07:41 Dose: 112 mcg Levothyroxine Sodium (Levothyroxine Sodium 25 Mcg Tablet) 25 mcg PO DAILY@0600 [facility] Last Admin: 06/08/24 07:40 Dose: 25 mcg Sodium Chloride (0.9 % Sodium Chloride Flush 3 Ml Syringe) 3 ml IVFLUSH QSHIFT [facility] Last Admin: 06/08/24 07:41 Dose: 3 ml Home Medications ?Medication ?Instructions ?Recorded ?Confirmed ?Last Taken ?Type ascorbic acid (vitamin C) 500 mg 500 mg PO DAILY 03/23/20 05/29/24 03/23/20 History tablet calcitriol 0.25 mcg capsule 0.25 mcg PO DAILY 03/23/20 05/29/24 03/23/20 History docusate sodium 100 mg capsule 200 mg PO BEDTIME 03/23/20 05/29/24 03/23/20 History (Colace) cholecalciferol (vitamin D3) 1,250 1,250 mcg PO QMONTH 01/09/23 05/29/24 11/23/23 History mcg (50,000 unit) tablet dicyclomine 10 mg capsule 10 mg PO QID 01/09/23 05/29/24 Unknown History furosemide 20 mg tablet 20 mg PO DAILY 01/09/23 05/29/24 Unknown History gabapentin 100 mg capsule 100 mg PO BID@0800,1400 01/09/23 05/29/24 Unknown History gabapentin 600 mg tablet 600 mg PO BEDTIME 01/09/23 05/29/24 Unknown History melatonin 10 mg tablet 10 mg PO BEDTIME Sleep 01/09/23 05/29/24 Unknown History midodrine 10 mg tablet 10 mg PO TIDAC 01/09/23 05/29/24 Unknown History acetaminophen 325 mg tablet 650 mg PO Q6H PRN 11/26/23 05/29/24 Unknown History headache/fever/bodyaches nystatin 100,000 unit/gram topical 1 appl topical BID Rash 11/26/23 05/29/24 Unknown History powder (Nyamyc) trazodone 150 mg tablet 75 mg PO BEDTIME 11/26/23 05/29/24 Unknown History ferrous sulfate 325 mg (65 mg 325 mg PO DAILY 12/04/23 05/29/24 Unknown History iron) tablet (FeroSul) miconazole nitrate 2 % topical 1 appl topical BID PRN fungal rash 12/04/23 05/29/24 Unknown History cream sennosides 8.6 mg tablet (senna) 8.6 mg PO DAILY PRN Constipation 12/04/23 05/29/24 Unknown History apixaban 5 mg tablet (Eliquis) 5 mg PO BID 04/29/24 05/29/24 Unknown History baclofen 20 mg tablet 20 mg PO TID@0700,1200,1900 05/29/24 05/29/24 Unknown History baclofen 20 mg tablet 40 mg PO BEDTIME 05/29/24 05/29/24 Unknown History levothyroxine 137 mcg tablet 137 mcg PO DAILY@0630 05/29/24 05/29/24 Unknown History ybxroqqxezva-thnqdygy-gjaa 1 tab PO DAILY 05/29/24 05/29/24 Unknown History fumarate 19 mg-folic acid 400 mcg tablet (Thera-M) nystatin 100,000 unit/gram topical 1 appl topical BID 05/29/24 05/29/24 Unknown History cream Physical Exam 2 Vital Signs: Vital Signs: Last Vital Signs Temp 97.5 F 06/08/24 09:00 Pulse 61 06/08/24 09:00 Resp 18 06/08/24 09:00 BP 111/55 L 06/08/24 09:00 Pulse Ox 100 06/08/24 09:00 O2 Del Method Mechanical Ventil ation 06/08/24 09:00 O2 Flow Rate 5 06/08/24 03:11 FiO2 90 06/08/24 09:00 Oxygen Flow Rate 5 06/07/24 09:00 BMI result Body Mass Index 35.1 General: In the acute distress, ill appearing and tired appearing Nutritional Appearance: well nourished and overweight Eyes: appearance normal, both eyes and all related structures; Alignment and Position: alignment normal and position normal Neck: No lymphadenopathy, no thyromegaly Resp: bilateral air entry equal, bilateral diffuse crackles heard Cardio: Regular rate, regular rhythm; Heart sounds: S1 normal heart sound present and S2 normal heart sound present GI: soft, nontender, no guarding, no hepatosplenomegaly : bladder normal to inspection, bladder normal to palpation, no renal angle tenderness, supra pubic catheter Skin: no rashes or lesions noted and elasticity normal Neuro: Unable to do a neuro examination as the patient is sedated Results Labs 06/08/24 05:10 06/08/24 05:10 Labs: Short CBC 06/08/24 Range/Units 05:10 WBC 7.8 (4.8-10.8) X10*3/uL Hgb 9.6 L (14.0-18.0) g/dl Hct 30.4 L (42.0-52.0) % Plt Count 230 (160-400) X10*3/uL BMP 06/08/24 05:10 Sodium 140 Potassium 3.7 Chloride 95 L Carbon Dioxide 34 H BUN 14 Creatinine 0.58 Calcium 9.4 D Liver Function 06/08/24 Range/Units 05:10 Total Bilirubin 0.5 (0.0-1.0) mg/dL AST 36 (5-37) U/L ALT 23 (0-40) U/L Alkaline Phosphatase 64 (39-117) U/L Albumin 3.2 L (3.5-5.0) g/dL Microbiology Microbiology Results: Microbiology 06/08/24 04:35 Sputum - Suctioned Gram Stain - Final 06/06/24 09:50 Bronchial Washings Gram Stain - Final 06/06/24 09:50 Bronchial Washings Routine Culture - Final Corynebacterium species 06/02/24 11:00 Bronchial Washings Gram Stain - Final 06/02/24 11:00 Bronchial Washings Routine Culture - Final Staphylococcus aureus 05/29/24 12:41 Blood - Venous Blood Culture - Final No growth after 5 days. 05/29/24 12:41 Blood - Venous Blood Culture - Final No growth after 5 days. 05/29/24 Unknown Urine Catheterized - [place] Catheter Urine Culture - Final Pseudomonas aeruginosa Providencia rettgeri Assessment and Plan (1) Acute kidney injury: Status: Acute (2) UTI (urinary tract infection): Status: Acute (3) Chronic osteomyelitis with draining sinus, other site: Status: Acute (4) Shock, septic: Status: Acute (5) Spinal cord injury: Status: Acute (6) Chronic pain syndrome: Status: Acute (7) Pneumonia: Status: Acute (8) Pulmonary atelectasis: Status: Acute (9) Acute hypoxemic respiratory failure: Status: Acute (10) Cardiac arrest: Status: Acute Plan 68-year-old gentleman with a PMH of?paroxysmal AFib on Eliquis, paraplegia secondary to spinal cord injury, neurogenic bladder with chronic suprapubic catheter in place, recurrent UTIs, colostomy, pacemaker in place, hypothyroidism, chronic pain syndrome, and sacral decubitus ulcer admitted to the hospital on 05/29/2024 for the management of pneumonia. Chest x-ray and CT chest upon admission showed right middle and lower lobe collapse so he underwent bronch on 06/02. xray 06/05 show right complete opacity and had another brochoscopy with lavage on 06/06 he was noted to have significant purulent secretions coming out from the right lung more than the left lung that was lavaged during the bronchoscopy. Bronchoscopic lavage was polymicrobial including staph and Corynebacterium so his antibiotics were appropriately adjusted. On the morning of 06/08/2024 patient went into cardiac arrest, total down time of about 8 minutes before ask, intubated and on ventilator support so transferred to medical ICU. Neuro: Acute encephalopathy possibly due to metabolic encephalopathy On propofol for sedation, as needed fentanyl for analgesia Close neurological status monitoring in the ICU every hour Cardiac: Cardiogenic Shock: Possibly secondary to cardiac arrest On low-dose Levophed support, titrate Levophed to keep map above 65 mm Hg Cardiac arrest: Possibly secondary to airway obstruction from thickened secretions Downtime of about 6-8 minutes We will initiate the cooling protocol, although the benefits in cases of noncardiac etiology PEA arrest is questionable Respiratory: Acute hypoxemic respiratory failure due to Currently on ventilator support On PRVC mode FiO2 90%, PEEP 6, TV 400, RR 20 Peak pressures and plateau pressures are under the curve Ventilator management bundle with head end elevation, aspiration precaution, chlorhexidine mouthwash, daily awakening trials, daily spontaneous breathing trials GI: We will start on tube feeds Renal: Acute kidney injury possibly secondary to ATN Baseline creatinine normal, creatinine today is We will closely monitor I's and O's Avoid nephrotoxic medications Heme: Chronic anemia, closely monitor H&H, transfuse for hemoglobin less than 7 grams/deciliter Endocrine: Blood sugars under control Sliding scale insulin as needed Infectious disease: Sputum cultures positive for MSSA and Citrobacter Urine cultures positive for Pseudomonas and providencia On clindamycin, doxycycline and cefepime for antibiotic coverage Musculoskeletal: Decubitus ulcer prevention protocol Lines: Left IJ TLC Prophylaxis: Lovenox pantoprazole The acute changes in his clinical status including hypoxic respiratory failure, shock is secondary to cardiac arrest from respiratory failure/ airway obstruction and this is not due to sepsis. Critical care time spent is about 60 minutes in this critically ill patient with multiple organ failures including acute respiratory failure, cardiac arrest, cardiogenic shock; time is mainly spent on post cardiac arrest management, cooling protocol, sedation management, ventilator management, close hemodynamic medical fentanyl, vasopressor management, review of labs and images and this time is excluding any procedural time
[2024-06-08 10:04] LABS: Reflex Lactate? 2 Y
[2024-06-08] MEDS: cefEPime HCl 1 GM in 0.9 % Sodium Chloride 50 ML IV ×2 (11:12→23:48)
[2024-06-08 11:58] LABS: D Dimer High Sensitivity 3143 NG/ML
[2024-06-08] MEDS: Pantoprazole Sodium 40 MG/10 ML VIAL IVPUSH (12:11)
[2024-06-08] MEDS: Chlorhexidine Gluc Oral Rinse 15 ML MOUTHWASH BUCCAL ×2 (12:11→20:24)
--- NOTE | 2024-06-08 12:50 | PM.EVENT ---
Event Note Date of Service: 06/08/24 Event Note: D/w Dr. Alves and he felt the arrest was probably more respiratory in nature and has cancelled the cardiology consult for now. Pacemaker information is being evaluated for. Will be glad see the patient if requested again Time Spent With Patient Time: Total time managing care of this patient today ____ minutes.
[2024-06-08] MEDS: Enoxaparin Sodium 100 MG/ML SYRINGE SUBCUT ×2 (13:08→23:55)
[2024-06-08] MEDS: propofoL 1,000 MG/100 ML VIAL 23.56 MG IVCONT (15:44)
[2024-06-08] MEDS: iohexoL 350 MG/ML 100 ML INFUS..BTL IV (16:22)
[2024-06-08] MEDS: propofoL 1,000 MG/100 ML VIAL 31.42 MG IVCONT (18:36)
--- NOTE | 2024-06-08 20:52 | PC.NURSE ---
Fr. Lenny Erickson at bedside to visit with pt per family request
[2024-06-08] MEDS: propofoL 1,000 MG/100 ML VIAL 39.27 MG IVCONT ×2 (21:29→23:54)
[2024-06-09] VITALS (41 sets, daily range): BP systolic 79–144; BP diastolic 34–89; PULSE 60–69; RESP 13–18; TEMP 33.7–36.8; O2SAT 89–99; BMI 37.2
[2024-06-09] MEDS: Clindamycin Phosphate/D5W 300 MG/50 ML PIGGYBACK 100 MG IV ×3 (01:07→17:13)
[2024-06-09] MEDS: propofoL 1,000 MG/100 ML VIAL 39.27 MG IVCONT ×8 (02:19→19:49)
[2024-06-09] MEDS: Doxycycline Monohydrate 100 MG CAPSULE PO ×2 (02:19→15:52)
[2024-06-09] MEDS: Levothyroxine Sodium 25 MCG TABLET PO (05:06)
[2024-06-09] MEDS: Levothyroxine Sodium 112 MCG TABLET PO (05:06)
[2024-06-09] MEDS: Pantoprazole Sodium 40 MG/10 ML VIAL IVPUSH (05:06)
[2024-06-09 05:17] LABS: VBG Base Excess 23.3 mmol/L; VBG HCO3 48 mmol/L (22-26); VBG pCO2 53 mmHg; VBG pH 7.56 (7.32-7.43); VBG pO2 32 mmHg
[2024-06-09 05:39] LABS: Venous Blood Gas Refer to POC result
[2024-06-09] MEDS: Norepinephrine Bitartrate/D5W 8 MG/250 ML PLAST..BAG 2.45 MG IVCONT (05:43)
[2024-06-09 06:12] LABS: MANUAL DIFF FLAG NO
[2024-06-09 06:15] LABS: Basophils Percent Auto 0.6 % (0-2); Eosinophils Absolute Auto 0.1 X10*3/uL (0.0-0.4); Eosinophils Percent Auto 2.2 % (0-4); Hematocrit 31.8 % (42.0-52.0); Imm Gran Abs Auto 0.06 X10*3/uL (0.00-0.03); Imm Gran Pct Auto 0.9 % (0.0-0.4); Lymphocytes Absolute Auto 1.3 X10*3/uL (1.2-4.9); Lymphocytes Percent Auto 19.2 % (20-40); Mean Corpuscular HGB Conc 31.4 g/dl (31.0-36.0); Mean Corpuscular Volume 89.1 fL (80.0-98.0); Mean Platelet Volume 9.8 fL (9.4-12.4); Monocytes Absolute Auto 0.5 X10*3/uL (0.1-1.2); Monocytes Percent Auto 8.2 % (2-11); Neutrophils Absolute Auto 4.5 x10*3/uL (2.0-8.3); Neutrophils Percent Auto 68.9 % (45-73); Platelet Count 233 X10*3/uL (160-400); Red Blood Count 3.57 X10*6/uL (4.60-5.80); Red Cell Distribution Width 16.5 % (11.0-16.0); White Blood Count 6.5 X10*3/uL (4.8-10.8)
[2024-06-09 06:33] LABS: Alanine Aminotransferase 37 U/L (0-40); Albumin Level 3.1 g/dL (3.5-5.0); Alkaline Phosphatase 59 U/L (39-117); Anion Gap 15 (12-20); Aspartate Amino Transferase 47 U/L (5-37); Bilirubin Total 0.5 mg/dL (0.0-1.0); Blood Urea Nitrogen 11 mg/dL (9-16); Carbon Dioxide 35 mmol/L (22-29); Chloride 96 mmol/L (96-108); Creatinine Clr Calc Pharmacy 222.6; Estimated Glomerular Filt Rate > 60; Glucose Random 98 mg/dL (60-115); Magnesium 1.8 mg/dL (1.6-2.6); Phosphorus 1.8 mg/dL (2.7-4.5); Potassium 3.2 mmol/L (3.3-5.1); Sodium 143 mmol/L (135-145); Total Protein 6.1 g/dL (6.5-8.0)
[2024-06-09] MEDS: Albuterol/Iprat 2.5/0.5MG 3 ML AMPUL.NEB INHALE ×2 (07:31→20:08)
[2024-06-09] MEDS: Chlorhexidine Gluc Oral Rinse 15 ML MOUTHWASH BUCCAL ×2 (07:31→20:05)
[2024-06-09] MEDS: Acetylcysteine 10 % 400 MG/4 ML VIAL INHALE ×2 (07:31→20:09)
[2024-06-09] MEDS: 0.9 % Sodium Chloride Flush 3 ML SYRINGE IVFLUSH ×3 (07:31→23:25)
[2024-06-09] MEDS: cefEPime HCl 1 GM in 0.9 % Sodium Chloride 50 ML IV ×2 (11:00→23:22)
[2024-06-09] MEDS: Enoxaparin Sodium 100 MG/ML SYRINGE SUBCUT ×2 (11:00→23:25)
--- NOTE | 2024-06-09 11:55 | P.PNCC_ITS ---
Subjective Subjective Date of Service: 06/09/24 Critical Care Time (minutes): 35 Comment: No new events overnight Continues to be on ventilator support On propofol for sedation, fentanyl for analgesia CTA chest showed distal pulmonary artery embolus but proximal and the central pulmonary arteries are patent Physical Exam 2 Vital Signs: Vital Signs: Last Vital Signs Temp 93.0 F L 06/09/24 11:00 Pulse 60 06/09/24 11:00 Resp 15 06/09/24 11:00 BP 109/51 L 06/09/24 11:00 Pulse Ox 95 06/09/24 11:36 O2 Del Method Mechanical Ventil ation 06/09/24 11:00 O2 Flow Rate 5 06/08/24 03:11 FiO2 40 06/09/24 11:36 Oxygen Flow Rate 5 06/07/24 09:00 BMI result Body Mass Index 37.2 General: acute distress, ill appearing and tired appearing Nutritional Appearance: well nourished and overweight Eyes: appearance normal, both eyes and all related structures; Alignment and Position: alignment normal and position normal Neck: No lymphadenopathy, no thyromegaly Resp: bilateral air entry equal, decreased breath sounds in the right lung, crackles heard in the left lung Cardio: Regular rate, regular rhythm; Heart sounds: S1 normal heart sound present and S2 normal heart sound present GI: soft, nontender, no guarding, no hepatosplenomegaly : bladder normal to inspection, bladder normal to palpation, no renal angle tenderness Skin: no rashes or lesions noted and elasticity normal Neuro: Sedated, unable to do a neuro exam Objective Data Labs 06/09/24 05:14 06/09/24 05:14 Labs: Laboratory Results - last 24 hr 06/08/24 06/09/24 06/09/24 11:05 05:07 05:14 WBC 6.5 RBC 3.57 L Hgb 10.0 L Hct 31.8 L MCV 89.1 MCH 28.0 MCHC 31.4 RDW 16.5 H Plt Count 233 MPV 9.8 Immature Gran % (Auto) 0.9 H Neut % (Auto) 68.9 Lymph % (Auto) 19.2 L [place] % (Auto) 8.2 Eos % (Auto) 2.2 Baso % (Auto) 0.6 Lymph # (Auto) 1.3 [place] # (Auto) 0.5 Eos # (Auto) 0.1 Baso # (Auto) 0.0 Abs Immat Gran (auto) 0.06 H Absolute Neuts (auto) 4.5 Absolute Nucleated RBC 0.000 Nucleated RBC % (auto) 0.0 D-Dimer High Sensitivty 3143 VBG pH 7.56 H VBG pCO2 53 VBG pO2 32 VBG HCO3 48 H VBG O2 Saturation 55.0 VBG Base Excess 23.3 Sodium 143 Potassium 3.2 L Chloride 96 Carbon Dioxide 35 H Anion Gap 15 BUN 11 Creatinine 0.49 L Estim Creat Clear Calc 222.6 Estimated GFR > 60 Random Glucose 98 Calcium 9.0 Phosphorus 1.8 L Magnesium 1.8 Total Bilirubin 0.5 AST 47 H ALT 37 Alkaline Phosphatase 59 Total Protein 6.1 L Albumin 3.1 L Microbiology Microbiology Results: Microbiology 06/08/24 04:35 Sputum - Suctioned Gram Stain - Final 06/08/24 04:35 Sputum - Suctioned Sputum Culture - Preliminary Culture in progress. 06/06/24 09:50 Bronchial Washings Gram Stain - Final 06/06/24 09:50 Bronchial Washings Routine Culture - Final Corynebacterium species 06/02/24 11:00 Bronchial Washings Gram Stain - Final 06/02/24 11:00 Bronchial Washings Routine Culture - Final Staphylococcus aureus 05/29/24 12:41 Blood - Venous Blood Culture - Final No growth after 5 days. 05/29/24 12:41 Blood - Venous Blood Culture - Final No growth after 5 days. 05/29/24 Unknown Urine Catheterized - [place] Catheter Urine Culture - Final Pseudomonas aeruginosa Providencia rettgeri Progress Note: A&P Assessment and plan (1) Cardiac arrest: Status: Acute (2) Acute kidney injury: Status: Acute (3) Chronic osteomyelitis with draining sinus, other site: Status: Acute (4) Acute confusion: Status: Acute (5) Spinal cord injury: Status: Acute (6) Acute hypoxemic respiratory failure: Status: Acute (7) Pulmonary atelectasis: Status: Acute (8) Pneumonia: Status: Acute Plan 68-year-old gentleman with a PMH of paroxysmal AFib on Eliquis, paraplegia secondary to spinal cord injury, neurogenic bladder with chronic suprapubic catheter in place, recurrent UTIs, colostomy, pacemaker in place, hypothyroidism, chronic pain syndrome, and sacral decubitus ulcer admitted to the hospital on 05/29/2024 for the management of pneumonia. Chest x-ray and CT chest upon admission showed right middle and lower lobe collapse so he underwent bronch on 06/02. xray 06/05 show right complete opacity and had another brochoscopy with lavage on 06/06 he was noted to have significant purulent secretions coming out from the right lung more than the left lung that was lavaged during the bronchoscopy. Bronchoscopic lavage was polymicrobial including staph and Corynebacterium so his antibiotics were appropriately adjusted. On the morning of 06/08/2024 patient went into cardiac arrest, total down time of about 8 minutes before ask, intubated and on ventilator support so transferred to medical ICU. Neuro: Acute encephalopathy possibly due to metabolic encephalopathy On propofol for sedation, as needed fentanyl for analgesia Close neurological status monitoring in the ICU every hour Cardiac: Cardiogenic Shock: Possibly secondary to cardiac arrest On low-dose Levophed support, titrate Levophed to keep map above 65 mm Hg Cardiac arrest: Possibly secondary to airway obstruction from thickened secretions Downtime of about 6-8 minutes Currently on hypothermia protocol, we will start rewarming after 15:00 CTA chest showed distal pulmonary artery filling defects which might be chronic, there was no clots seen in the central pulmonary artery so this is possibly unlikely to be the cause of cardiac arrest. Respiratory: Acute hypoxemic respiratory failure due to Currently on ventilator support On PRVC mode FiO2 down to 50%, PEEP 6, TV 400, RR 20 Peak pressures and plateau pressures are under the curve Ventilator management bundle with head end elevation, aspiration precaution, chlorhexidine mouthwash, daily awakening trials, daily spontaneous breathing trials GI: on tube feeds Renal: Creatinine normal 0.49 We will closely monitor I's and O's Avoid nephrotoxic medications Heme: Chronic anemia, closely monitor H&H, transfuse for hemoglobin less than 7 grams/deciliter Endocrine: Blood sugars under control Sliding scale insulin as needed Infectious disease: Sputum cultures positive for MSSA and Citrobacter Urine cultures positive for Pseudomonas and providencia On clindamycin, doxycycline and cefepime for antibiotic coverage Musculoskeletal: Decubitus ulcer prevention protocol Lines: Left IJ TLC Prophylaxis: Lovenox pantoprazole Quality Stroke Does the patient have a stroke diagnosis?: No VTE Prior VTE?: No VTE Risk Level:: Medical - moderate - high VTE Device Contraindication: Treatment Not Indicated VTE Drug Contraindication: N/A - Med Ordered
[2024-06-09 20:30] LABS: MANUAL DIFF FLAG NO
[2024-06-09 20:34] LABS: Basophils Percent Auto 0.5 % (0-2); Eosinophils Absolute Auto 0.2 X10*3/uL (0.0-0.4); Eosinophils Percent Auto 2.4 % (0-4); Hematocrit 32.4 % (42.0-52.0); Hemoglobin 10.5 g/dl (14.0-18.0); Imm Gran Abs Auto 0.06 X10*3/uL (0.00-0.03); Mean Corpuscular HGB Conc 32.4 g/dl (31.0-36.0); Mean Corpuscular Hemoglobin 28.2 pg (27.0-33.0); Mean Corpuscular Volume 87.1 fL (80.0-98.0); Mean Platelet Volume 8.9 fL (9.4-12.4); Monocytes Absolute Auto 0.5 X10*3/uL (0.1-1.2); Monocytes Percent Auto 7.3 % (2-11); Neutrophils Absolute Auto 4.5 x10*3/uL (2.0-8.3); Neutrophils Percent Auto 72.8 % (45-73); Platelet Count 229 X10*3/uL (160-400); Red Blood Count 3.72 X10*6/uL (4.60-5.80); Red Cell Distribution Width 17.1 % (11.0-16.0); White Blood Count 6.2 X10*3/uL (4.8-10.8)
[2024-06-09 20:46] LABS: Alanine Aminotransferase 42 U/L (0-40); Albumin Level 3.2 g/dL (3.5-5.0); Alkaline Phosphatase 64 U/L (39-117); Anion Gap 13 (12-20); Aspartate Amino Transferase 50 U/L (5-37); Bilirubin Total 0.4 mg/dL (0.0-1.0); Blood Urea Nitrogen 10 mg/dL (9-16); Calcium 8.4 mg/dL (8.4-10.2); Carbon Dioxide 35 mmol/L (22-29); Chloride 96 mmol/L (96-108); Creatinine Clr Calc Pharmacy 218.1; Estimated Glomerular Filt Rate > 60; Glucose Random 155 mg/dL (60-115); Potassium 3.1 mmol/L (3.3-5.1); Sodium 141 mmol/L (135-145); Total Protein 6.2 g/dL (6.5-8.0)
[2024-06-09] MEDS: propofoL 1,000 MG/100 ML VIAL 31.42 MG IVCONT (21:53)
[2024-06-09 21:59] LABS: Magnesium 1.7 mg/dL (1.6-2.6)
[2024-06-09] MEDS: Potassium Phosphate/NS 15 MMOL/250 ML PLAST..BAG 62.5 MMOL IV (23:33)
[2024-06-10] VITALS (36 sets, daily range): BP systolic 71–154; BP diastolic 31–76; PULSE 60–63; RESP 14–18; TEMP 34.1–38.6; O2SAT 5–97; BMI 37.2
[2024-06-10] MEDS: propofoL 1,000 MG/100 ML VIAL 31.42 MG IVCONT ×3 (01:04→07:46)
[2024-06-10] MEDS: Doxycycline Monohydrate 100 MG CAPSULE PO ×2 (02:10→14:26)
[2024-06-10] MEDS: Clindamycin Phosphate/D5W 300 MG/50 ML PIGGYBACK 100 MG IV (02:11)
[2024-06-10] MEDS: Potassium Phosphate/NS 15 MMOL/250 ML PLAST..BAG 62.5 MMOL IV (03:34)
[2024-06-10 04:40] LABS: VBG HCO3 46 mmol/L (22-26); VBG pCO2 46 mmHg; VBG pO2 29 mmHg
[2024-06-10 04:42] LABS: Venous Blood Gas Refer to POC result
[2024-06-10 05:12] LABS: MANUAL DIFF FLAG NO
[2024-06-10 05:16] LABS: Basophils Percent Auto 0.5 % (0-2); Eosinophils Absolute Auto 0.1 X10*3/uL (0.0-0.4); Hematocrit 31.7 % (42.0-52.0); Hemoglobin 9.9 g/dl (14.0-18.0); Imm Gran Abs Auto 0.06 X10*3/uL (0.00-0.03); Imm Gran Pct Auto 0.9 % (0.0-0.4); Lymphocytes Absolute Auto 1.2 X10*3/uL (1.2-4.9); Lymphocytes Percent Auto 18.5 % (20-40); Mean Corpuscular HGB Conc 31.2 g/dl (31.0-36.0); Mean Corpuscular Hemoglobin 27.8 pg (27.0-33.0); Mean Platelet Volume 9.5 fL (9.4-12.4); Monocytes Absolute Auto 0.6 X10*3/uL (0.1-1.2); Monocytes Percent Auto 8.6 % (2-11); Neutrophils Absolute Auto 4.6 x10*3/uL (2.0-8.3); Neutrophils Percent Auto 69.5 % (45-73); Platelet Count 239 X10*3/uL (160-400); Red Blood Count 3.56 X10*6/uL (4.60-5.80); Red Cell Distribution Width 17.2 % (11.0-16.0); White Blood Count 6.7 X10*3/uL (4.8-10.8)
[2024-06-10 05:32] LABS: Alanine Aminotransferase 32 U/L (0-40); Alkaline Phosphatase 61 U/L (39-117); Anion Gap 13 (12-20); Aspartate Amino Transferase 40 U/L (5-37); Bilirubin Total 0.4 mg/dL (0.0-1.0); Blood Urea Nitrogen 9 mg/dL (9-16); Calcium 8.3 mg/dL (8.4-10.2); Carbon Dioxide 34 mmol/L (22-29); Chloride 98 mmol/L (96-108); Creatinine Clr Calc Pharmacy 191.3; Estimated Glomerular Filt Rate > 60; Glucose Random 131 mg/dL (60-115); Phosphorus 3.7 mg/dL (2.7-4.5); Potassium 3.6 mmol/L (3.3-5.1); Sodium 141 mmol/L (135-145)
[2024-06-10] MEDS: Pantoprazole Sodium 40 MG/10 ML VIAL IVPUSH (05:41)
[2024-06-10] MEDS: Levothyroxine Sodium 112 MCG TABLET PO (05:41)
[2024-06-10] MEDS: Levothyroxine Sodium 25 MCG TABLET PO (05:41)
[2024-06-10] MEDS: Norepinephrine Bitartrate/D5W 8 MG/250 ML PLAST..BAG 7.36 MG IVCONT (05:42)
[2024-06-10] MEDS: Acetylcysteine 10 % 400 MG/4 ML VIAL INHALE ×2 (07:22→21:00)
[2024-06-10] MEDS: Chlorhexidine Gluc Oral Rinse 15 ML MOUTHWASH BUCCAL ×2 (07:46→20:08)
[2024-06-10] MEDS: 0.9 % Sodium Chloride Flush 3 ML SYRINGE IVFLUSH ×2 (07:46→14:26)
--- NOTE | 2024-06-10 08:24 | P.PNCC_ITS ---
Subjective Subjective Date of Service: 06/10/24 Critical Care Time (minutes): 35 Comment: Remains on ventilator support No new events overnight Physical Exam 2 Vital Signs: Vital Signs: Last Vital Signs Temp 99.3 F 06/10/24 08:00 Pulse 63 06/10/24 08:00 Resp 14 06/10/24 08:00 BP 130/74 06/10/24 08:00 Pulse Ox 92 06/10/24 08:00 O2 Del Method Mechanical Ventil ation 06/10/24 08:00 O2 Flow Rate 5 06/08/24 03:11 FiO2 40 06/10/24 08:00 Oxygen Flow Rate 5 06/07/24 09:00 BMI result Body Mass Index 37.2 General: Elderly looking male, chronically ill-appearing, lying in the bed connected to the ventilator Nutritional Appearance: well nourished and overweight Eyes: appearance normal, both eyes and all related structures; Alignment and Position: alignment normal and position normal Neck: No lymphadenopathy, no thyromegaly Resp: bilateral air entry equal, decreased breath sounds on the right, crackles in the left Cardio: Regular rate, regular rhythm; Heart sounds: S1 normal heart sound present and S2 normal heart sound present GI: soft, nontender, no guarding, no hepatosplenomegaly : bladder normal to inspection, bladder normal to palpation, no renal angle tenderness Skin: no rashes or lesions noted and elasticity normal Neuro: Unable to obtain as patient is on sedation Objective Data Labs 06/10/24 04:24 06/10/24 04:24 Labs: Laboratory Results - last 24 hr 06/09/24 06/10/24 06/10/24 20:24 04:24 04:28 WBC 6.2 6.7 RBC 3.72 L 3.56 L Hgb 10.5 L 9.9 L Hct 32.4 L 31.7 L MCV 87.1 89.0 MCH 28.2 27.8 MCHC 32.4 31.2 RDW 17.1 H 17.2 H Plt Count 229 239 MPV 8.9 L 9.5 Immature Gran % (Auto) 1.0 H 0.9 H Neut % (Auto) 72.8 69.5 Lymph % (Auto) 16.0 L 18.5 L [place] % (Auto) 7.3 8.6 Eos % (Auto) 2.4 2.0 Baso % (Auto) 0.5 0.5 Lymph # (Auto) 1.0 L 1.2 Assumption # (Auto) 0.5 0.6 Eos # (Auto) 0.2 0.1 Baso # (Auto) 0.0 0.0 Abs Immat Gran (auto) 0.06 H 0.06 H Absolute Neuts (auto) 4.5 4.6 Absolute Nucleated RBC 0.000 0.000 Nucleated RBC % (auto) 0.0 0.0 VBG pH 7.60 H* VBG pCO2 46 VBG pO2 29 VBG HCO3 46 H VBG O2 Saturation 49.0 VBG Base Excess 22.0 Sodium 141 141 Potassium 3.1 L 3.6 Chloride 96 98 Carbon Dioxide 35 H 34 H Anion Gap 13 13 BUN 10 9 Creatinine 0.50 0.57 Estim Creat Clear Calc 218.1 191.3 Estimated GFR > 60 > 60 Random Glucose 155 H 131 H Calcium 8.4 D 8.3 L Phosphorus 2.0 L 3.7 Magnesium 1.7 Total Bilirubin 0.4 0.4 AST 50 H 40 H ALT 42 H 32 Alkaline Phosphatase 64 61 Total Protein 6.2 L 6.0 L Albumin 3.2 L 3.0 L Microbiology Microbiology Results: Microbiology 06/08/24 04:35 Sputum - Suctioned Gram Stain - Final 06/08/24 04:35 Sputum - Suctioned Sputum Culture - Preliminary 06/06/24 09:50 Bronchial Washings Gram Stain - Final 06/06/24 09:50 Bronchial Washings Routine Culture - Final Corynebacterium species 06/02/24 11:00 Bronchial Washings Gram Stain - Final 06/02/24 11:00 Bronchial Washings Routine Culture - Final Staphylococcus aureus 05/29/24 12:41 Blood - Venous Blood Culture - Final No growth after 5 days. 05/29/24 12:41 Blood - Venous Blood Culture - Final No growth after 5 days. 05/29/24 Unknown Urine Catheterized - [place] Catheter Urine Culture - Final Pseudomonas aeruginosa Providencia rettgeri Progress Note: A&P Assessment and plan (1) Cardiac arrest: Status: Acute (2) Acute kidney injury: Status: Acute (3) Chronic osteomyelitis with draining sinus, other site: Status: Acute (4) Spinal cord injury: Status: Acute (5) Pneumonia: Status: Acute (6) Acute hypoxemic respiratory failure: Status: Acute Plan 68-year-old gentleman with a PMH of paroxysmal AFib on Eliquis, paraplegia secondary to spinal cord injury, neurogenic bladder with chronic suprapubic catheter in place, recurrent UTIs, colostomy, pacemaker in place, hypothyroidism, chronic pain syndrome, and sacral decubitus ulcer admitted to the hospital on 05/29/2024 for the management of pneumonia. Chest x-ray and CT chest upon admission showed right middle and lower lobe collapse so he underwent bronch on 06/02. xray 06/05 show right complete opacity and had another brochoscopy with lavage on 06/06 he was noted to have significant purulent secretions coming out from the right lung more than the left lung that was lavaged during the bronchoscopy. Bronchoscopic lavage was polymicrobial including staph and Corynebacterium so his antibiotics were appropriately adjusted. On the morning of 06/08/2024 patient went into cardiac arrest, total down time of about 8 minutes before ask, intubated and on ventilator support so transferred to medical ICU. Neuro: Acute encephalopathy possibly due to metabolic encephalopathy On propofol for sedation, as needed fentanyl for analgesia; we will wean propofol as tolerated today to look for the mental status We will get MRI of the brain to rule out any anoxic brain injury if he does not follow commands Close neurological status monitoring in the ICU every hour Cardiac: Cardiogenic Shock: Possibly secondary to cardiac arrest On low-dose Levophed support, titrate Levophed to keep map above 65 mm Hg Cardiac arrest: Possibly secondary to airway obstruction from thickened secretions Downtime of about 6-8 minutes completed cooling protocol, currently rewarmed CTA chest showed distal pulmonary artery filling defects which might be chronic, there was no clots seen in the central pulmonary artery so this is possibly unlikely to be the cause of cardiac arrest. Respiratory: Acute hypoxemic respiratory failure due to Currently on ventilator support On PRVC mode FiO2 down to 50%, PEEP 6, TV 400, RR 20 Peak pressures and plateau pressures are under the curve Ventilator manage ent bundle with head end elevation, aspiration precaution, chlorhexidine mouthwash, daily awakening trials, daily spontaneous breathing trials Given his aspiration and plugging of the right main bronchus from chronic aspiration we will go ahead and consult General surgery for a tracheostomy to prevent recurrence of the episodes. Doesnt need a PEG tube as his swallowing was okay prior to this GI: on tube feeds Renal: Creatinine normal 0.49 We will closely monitor I's and O's Avoid nephrotoxic medications Heme: Chronic anemia, closely monitor H&H, transfuse for hemoglobin less than 7 grams/deciliter Endocrine: Blood sugars under control Sliding scale insulin as needed Infectious disease: Sputum cultures positive for MSSA and Citrobacter Urine cultures positive for Pseudomonas and providencia On clindamycin, doxycycline and cefepime for antibiotic coverage; will discontinue clindamycin Musculoskeletal: Decubitus ulcer prevention protocol Lines: Left IJ TLC Prophylaxis: Lovenox pantoprazole Quality Stroke Does the patient have a stroke diagnosis?: No VTE Prior VTE?: No VTE Risk Level:: Medical - moderate - high VTE Device Contraindication: Treatment Not Indicated VTE Drug Contraindication: N/A - Med Ordered
--- NOTE | 2024-06-10 08:47 | HO.THORCON_ITS ---
History of Present Illness Consult details Consult date: 06/10/24 Narrative: Patient is a 68-year-old male with a plethora of comorbidities and intercurrent medical problems including spinal cord injury who now has had chronic aspirations leading to pulmonary compromise. ICU consultation for tracheostomy placed in to facilitate airway management and pulmonary toilet. Chart was reviewed and patient evaluated PMFSH Past Medical History Medical History Suprapubic catheter dysfunction Neurogenic bladder Quadriplegia, C5-C7 incomplete Atrial fibrillation Chronic restrictive lung disease Pneumonia Urine retention Irreducible left inguinal hernia Autonomic dysfunction Hypothyroidism Hernia Spasms of the hands or feet Spinal cord injury Family History Family History Sister Diabetes mellitus Family history: reviewed and not pertinent Surgical History Surgical History Chronic suprapubic catheter S/P tendon repair H/O hemorrhoidectomy S/P IVC filter H/O hernia repair H/O thyroidectomy Social History Social History Household Members: None Household Members Other:: jail Housing: [facility] Housing Other:: jail in [place] Do you presently have visiting nurse or other home services: No Alcohol intake: former Comment: pt paraplegic Patient Tobacco Use Status: Never used Tobacco Advance Directives Date on File: 01/09/23 service: No Meds Allergies Allergy/AdvReac Type Severity Reaction Status Date / Time dicloxacillin [From DYNAPEN] Allergy Unknown Unknown Verified 05/29/24 11:55 ofloxacin [From FLOXIN] AdvReac Intermediate Abdominal Verified 05/29/24 11:55 Pain penicillin V AdvReac Intermediate Abdominal Verified 05/29/24 11:55 Pain Active Medications: Current Medications Acetylcysteine (Acetylcysteine 10 % 400 Mg/4 Ml Vial) 400 mg INHALE RBID [facility] Last Admin: 06/10/24 07:22 Dose: 400 mg Albuterol/Ipratropium (Albuterol/Iprat 2.5/0.5mg 3 Ml Ampul.Neb) 3 ml INHALE RQ4H WHILE AWAKE PRN PRN Reason: Shortness of Breath/Wheezing Last Admin: 06/09/24 20:08 Dose: 3 ml Chlorhexidine Gluconate (Chlorhexidine Gluc Oral Rinse 15 Ml Mouthwash) 15 ml BUCCAL BID [facility] Last Admin: 06/10/24 07:46 Dose: 15 ml Doxycycline Monohydrate (Doxycycline Monohydrate 100 Mg Capsule) 100 mg PO Q12H [facility] Last Admin: 06/10/24 02:10 Dose: 100 mg Enoxaparin Sodium (Enoxaparin Sodium 100 Mg/Ml Syringe) 100 mg SUBCUT Q12H [facility] Last Admin: 06/09/24 23:25 Dose: 100 mg Cefepime HCl 1 gm/ Sodium (Chloride) 50 mls @ 100 mls/hr IV Q12H [facility] Last Infusion: 06/10/24 00:34 Dose: Infused Clindamycin Phosphate (Cleocin) 300 mg in 50 mls @ 100 mls/hr IV Q8H [facility] Last Infusion: 06/10/24 02:45 Dose: Infused Propofol (Diprivan) 1,000 mg in 100 mls @ 0 mls/hr IVCONT .Q0M [facility]; Protocol Last Admin: 06/10/24 07:46 Dose: 40 mcg/kg/min, 31.42 mls/hr Norepinephrine Bitartrate (Levophed) 8 mg in 250 mls @ 0 mls/hr IVCONT .Q0M [facility]; Protocol Last Admin: 06/10/24 05:42 Dose: 0.03 mcg/kg/min, 7.36 mls/hr Levothyroxine Sodium (Levothyroxine Sodium 112 Mcg Tablet) 112 mcg PO DAILY@0600 [facility] Last Admin: 06/10/24 05:41 Dose: 112 mcg Levothyroxine Sodium (Levothyroxine Sodium 25 Mcg Tablet) 25 mcg PO DAILY@0600 [facility] Last Admin: 06/10/24 05:41 Dose: 25 mcg Pantoprazole Sodium (Pantoprazole Sodium 40 Mg/10 Ml Vial) 40 mg IVPUSH DAILY@0630 [facility] Last Admin: 06/10/24 05:41 Dose: 40 mg Sodium Chloride (0.9 % Sodium Chloride Flush 3 Ml Syringe) 3 ml IVFLUSH QSHIFT [facility] Last Admin: 06/10/24 07:46 Dose: 3 ml Home Medications ?Medication ?Instructions ?Recorded ?Confirmed ?Last Taken ?Type ascorbic acid (vitamin C) 500 mg 500 mg PO DAILY 03/23/20 05/29/24 03/23/20 History tablet calcitriol 0.25 mcg capsule 0.25 mcg PO DAILY 03/23/20 05/29/24 03/23/20 History docusate sodium 100 mg capsule 200 mg PO BEDTIME 03/23/20 05/29/24 03/23/20 History (Colace) cholecalciferol (vitamin D3) 1,250 1,250 mcg PO QMONTH 01/09/23 05/29/24 11/23/23 History mcg (50,000 unit) tablet dicyclomine 10 mg capsule 10 mg PO QID 01/09/23 05/29/24 Unknown History furosemide 20 mg tablet 20 mg PO DAILY 01/09/23 05/29/24 Unknown History gabapentin 100 mg capsule 100 mg PO BID@0800,1400 01/09/23 05/29/24 Unknown History gabapentin 600 mg tablet 600 mg PO BEDTIME 01/09/23 05/29/24 Unknown History melatonin 10 mg tablet 10 mg PO BEDTIME Sleep 01/09/23 05/29/24 Unknown History midodrine 10 mg tablet 10 mg PO TIDAC 01/09/23 05/29/24 Unknown History acetaminophen 325 mg tablet 650 mg PO Q6H PRN 11/26/23 05/29/24 Unknown History headache/fever/bodyaches nystatin 100,000 unit/gram topical 1 appl topical BID Rash 11/26/23 05/29/24 Unknown History powder (Nyamyc) trazodone 150 mg tablet 75 mg PO BEDTIME 11/26/23 05/29/24 Unknown History ferrous sulfate 325 mg (65 mg 325 mg PO DAILY 12/04/23 05/29/24 Unknown History iron) tablet (FeroSul) miconazole nitrate 2 % topical 1 appl topical BID PRN fungal rash 12/04/23 05/29/24 Unknown History cream sennosides 8.6 mg tablet (senna) 8.6 mg PO DAILY PRN Constipation 12/04/23 05/29/24 Unknown History apixaban 5 mg tablet (Eliquis) 5 mg PO BID 04/29/24 05/29/24 Unknown History baclofen 20 mg tablet 20 mg PO TID@0700,1200,1900 05/29/24 05/29/24 Unknown History baclofen 20 mg tablet 40 mg PO BEDTIME 05/29/24 05/29/24 Unknown History levothyroxine 137 mcg tablet 137 mcg PO DAILY@0630 05/29/24 05/29/24 Unknown History svitojqnjxbl-fbymlylw-daeq 1 tab PO DAILY 05/29/24 05/29/24 Unknown History fumarate 19 mg-folic acid 400 mcg tablet (Thera-M) nystatin 100,000 unit/gram topical 1 appl topical BID 05/29/24 05/29/24 Unknown History cream Physical Exam 2 Vital Signs: Vital Signs: Last Vital Signs Temp 99.3 F 06/10/24 08:00 Pulse 63 06/10/24 08:00 Resp 14 06/10/24 08:00 BP 130/74 06/10/24 08:00 Pulse Ox 92 06/10/24 08:00 O2 Del Method Mechanical Ventil ation 06/10/24 08:00 O2 Flow Rate 5 06/08/24 03:11 FiO2 40 06/10/24 08:00 Oxygen Flow Rate 5 06/07/24 09:00 BMI result Body Mass Index 37.2 Chest: Other: Patient on vent, sedated. GI: Other: Soft benign Results Labs 06/10/24 04:24 06/10/24 04:24 Labs: Abnormal lab results 06/09/24 06/10/24 06/10/24 Range/Units 20:24 04:24 04:28 RBC 3.72 L 3.56 L (4.60-5.80) X10*6/uL Hgb 10.5 L 9.9 L (14.0-18.0) g/dl Hct 32.4 L 31.7 L (42.0-52.0) % RDW 17.1 H 17.2 H (11.0-16.0) % MPV 8.9 L (9.4-12.4) fL Immature Gran % (Auto) 1.0 H 0.9 H (0.0-0.4) % Lymph % (Auto) 16.0 L 18.5 L (20-40) % Lymph # (Auto) 1.0 L (1.2-4.9) X10*3/uL Abs Immat Gran (auto) 0.06 H 0.06 H (0.00-0.03) X10*3/uL VBG pH 7.60 H* (7.32-7.43) VBG HCO3 46 H (22-26) mmol/L Potassium 3.1 L (3.3-5.1) mmol/L Carbon Dioxide 35 H 34 H (22-29) mmol/L Random Glucose 155 H 131 H (60-115) mg/dL Calcium 8.3 L (8.4-10.2) mg/dL Phosphorus 2.0 L (2.7-4.5) mg/dL AST 50 H 40 H (5-37) U/L ALT 42 H (0-40) U/L Total Protein 6.2 L 6.0 L (6.5-8.0) g/dL Albumin 3.2 L 3.0 L (3.5-5.0) g/dL Short CBC 06/09/24 06/10/24 Range/Units 20:24 04:24 WBC 6.2 6.7 (4.8-10.8) X10*3/uL Hgb 10.5 L 9.9 L (14.0-18.0) g/dl Hct 32.4 L 31.7 L (42.0-52.0) % Plt Count 229 239 (160-400) X10*3/uL BMP 06/09/24 06/10/24 20:24 04:24 Sodium 141 141 Potassium 3.1 L 3.6 Chloride 96 98 Carbon Dioxide 35 H 34 H BUN 10 9 Creatinine 0.50 0.57 Calcium 8.4 D 8.3 L Liver Function 06/09/24 06/10/24 Range/Units 20:24 04:24 Total Bilirubin 0.4 0.4 (0.0-1.0) mg/dL AST 50 H 40 H (5-37) U/L ALT 42 H 32 (0-40) U/L Alkaline Phosphatase 64 61 (39-117) U/L Albumin 3.2 L 3.0 L (3.5-5.0) g/dL Urine 05/29/24 Range/Units 14:37 Urine Color Yellow Urine Appearance Cloudy Urine pH 6.0 (5.0-9.0) Ur Specific Sesser >= 1.030 H (1.005-1.025) Urine Protein Negative (Neg-Trace) mg/dL Urine Glucose (UA) Negative (Negative) mg/dL All other labs normal. Assessment and Plan (1) Acute hypoxemic respiratory failure: Status: Acute (2) Pulmonary atelectasis: Status: Acute (3) Aspiration, chronic pulmonary: Status: Acute Plan Patient was tentatively scheduled for tracheostomy for tomorrow. Brother who is [id number] will be contacted regarding consent. Patient's brother Moses was contacted by phone earlier today and the procedure was reviewed with him. He was aware of this tracheostomy possibility by the composite technician. Risks and benefits, alternatives of the procedure reviewed with the patient included but not limited to bleeding, infection, dislodgement, numbness, pain, scarring and the patient's brother consented for the procedure via phone. This was witnessed by Chen chester medical lab tech instructor who co signed the consent form. Procedures Date of Service Date of Service: 06/10/24
[2024-06-10] MEDS: Furosemide 40 MG/4 ML VIAL IVPUSH ×2 (09:27→18:14)
[2024-06-10] MEDS: dexmedeTOMIDidine HCL/NS 400 MCG/100 ML INFUS..BTL 34.7 MCG IVCONT ×3 (09:27→14:26)
--- NOTE | 2024-06-10 10:27 | MHC.CLN ---
PT REQUIRES TF FOR NUTRITION SUPPORT R/T PROLONGED NPO STATUS PT IS INTUBATED AND SEDATED CURRENTLY RECEIVING JEVITY 1.0 TF PROVIDES 1526KCALS (2355KCALS WITH SEDATION; 25KCALS/KG), 64G PROTEIN (.7G/KG), 1202ML FREE WATER FROM FORMULA PT WITH INCREASED NUTRITION RISK R/T PRESSURE INJURIES-REQUIRES HIGHER PO PROTEIN INTAKE TO PROMOTE WOUND HEALING RECOMMEND CHANGE IN TF FORMULA: PROMOTE AT MAX GOAL RATE 65ML/HR WITH 30ML PROSOURCE BID WITH 240ML FREE WATER FLUSHES Q 4 HRS TO PROVIDE 1680KCALS (2509TOTAL KCALS WITH SEDATION; 27KCALS/KG BASED ON IBW), 127.5G PROTEIN (1.4G/KG), 2749ML TOTAL WATER FROM FORMULA AND FLUSHES (30ML/KG) TF WILL PROMOTE WOUND HEALING MONITOR TOLERANCE AND LYTES SEE ALSO FULL CLINICAL NUTRITION ASSESSMENT
[2024-06-10] MEDS: propofoL 1,000 MG/100 ML VIAL 15.71 MG IVCONT (10:28)
[2024-06-10] MEDS: Enoxaparin Sodium 100 MG/ML SYRINGE SUBCUT (11:43)
[2024-06-10] MEDS: cefEPime HCl 1 GM in 0.9 % Sodium Chloride 50 ML IV (11:43)
--- NOTE | 2024-06-10 13:42 | MHC.CM.PN ---
Pt will go to the OR on 06/11 for a Trach/Peg placement. Call placed to HCP/pt's brother Moses to discuss LTACH options. Moses would like to speak w/his siblings regarding placement as he assumed pt would return to the nursing home following procedure and didn't realize pt would need specialty care. Information emailed to Moses re: [facility] locations in [place]. Referral placed: CM to follow.
--- NOTE | 2024-06-10 16:37 | HO.WOUND ---
Wound Consult: Follow up - Bed Needs Currently patient remains in ICU level of care. See chart review for details - cardiac arrest on 06/08. Currently on ICU specialty bed - Agility bed not in use at this time. Will follow up on Agility pulsate bed as patients skin will benefit from Pulsate technology. Details from previous assessment: 06/07/24 @11:00 Follow up for Agility bed: Bed was delivered and patient was transitioned to new pulsate bed - the supplier did not deliver the correct bed to accommodate the patients height and did not deliver [place] sheets. Unit staff [place] will call [facility] to send correct bed to accommodate patients height and [place] sheets. Original Note: Wound Consult:Initial 68yr old Male? [place] [facility] [place] - See progress notes and H&P for detailed history.? Wound consult placed for multiple pressure injuries present on admission.? Patient is a paraplegic at baseline and wheelchair bound for mobility. Treats at the outpt wound clinic and has previous injury Bilateral Heels, coccyx, and Ischium. Patient is well known to this assembly instructions writer from previous admissions. The patient is a poor historian at times due to memory baseline but is non-interactive at this time given post procedure. In past consultations patient reported he was routinely strapped into his wheelchair and he believed the wounds to the left foot and right lateral leg are consistent with the straps. 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 Durafiber AG for moisture management Left Heel Etiology: Unstageable Pressure Injury - ?Present on Admission Wound bed - red moist wound bed Adherent malone slough full thickness tissue loss Periwound: red maroon slow to benjy tissue, dry scaling tissue red purple nonblanchable areas within periwound Goals of Treatment: ? Heel protector boots in place - Durafiber AG with ABd pad applied for moisture management Right Heel Etiology: Unstageable Pressure Injury - ?Present on Admission Wound bed - Adherent malone slough full thickness tissue loss Periwound: red slow to benjy tissue, dry scaling tissue Goals of Treatment: ? Heel protector boots in place - Durafiber AG with ABd pad applied for moisture management Left Dorsal foot Etiology: Stage 3 Pressure Injury - ?Present on Admission Wound bed - Red moist wound bed full thickness tissue loss Periwound: red slow to benjy tissue, dry scaling tissue Goals of Treatment: ? Durafiber AG with ABd pad applied for moisture management Buttock coccyx and posterior thighs and scrotum shows significant signs of chronic MASD (Moisture Associated Skin Damage). It is unclear where the moisture is originating from question is from penis, anus or leaking from the suprapubic cath site. Buttock posterior thighs, scrotum and bilateral groin - MASD (Moisture Associated Skin Damage) - Various areas of partial thickness tissue loss in patterns of friction and chronic MASD. The pigmentation of maroon, red, light purple is blanchable. Triad to protect from moisture and friction. Pressure injury prevention measures should continue to be employed to protect the skin from further pressure injury development. Direct care team to obtain Specialty Mattress from [employer], continue with Q2hr turns add wedges, and heel protector boots to be continued. Coccyx - Previously documented?Stage 3 Pressure Injury ?POA Goals of Treatment: ? Triad to allow for moist wound healing and to protect from friction and moisture Bilateral Buttock - Stage 3 Pressure Injury ?POA Goals of Treatment: ? Triad to allow for moist wound healing and to protect from friction and moisture Patient should continue to follow up with outpt wound clinic at time of discharge. Recommendations: 1. Turn and Reposition every 2 hours and as needed for patient comfort.? Use pillows or wedges to support off loading positions. Use wedges for off loading. 2. Off Load all bony prominences with use of heel boots.? Apply Preventative foams where needed. ?Heel Protectors in use. 3. Monitor for incontinence and moisture control, use barrier creams when needed for prevention and treatment. Barrier cream in use. 4. Provide adequate and supplemental nutrition.? 5. Order Specialty mattress from [employer] - Pulsate extra long - Not the [place]. 6. When applicable maintain blood glucose levels per Providers order. 7. Coccyx, Buttock, Thigh, scrotum and groin - Off Load Pressure - Cleanse with PH balance spray or wipes, pat dry. ?Apply thin layer of Triad to wound bed - only pat and dab no scrub and rub when soiling occurs. Reapply thin layer PRN after each episode of incontinence. 8. Right Lateral Leg, Left cifuentes , Left Dorsal Foot and Bilateral Heel - Cleanse with NS moist gauze, Apply barrier cream to periwound - apply Durafiber AG to wound bed cover with ABD pag and gauze wrap. Change every other day and PRN. Re-consult wound care Nurse for wound deterioration or wound changes.
--- NOTE | 2024-06-10 17:20 | W.PM.CCHP ---
Procedures Date of Service Date of Service: 06/10/24 Bronchoscopy Consent for Procedure: Emergent-no informed consent obtained Indication: atelectasis and pulmonary toilet Route: endotracheal tube Monitor: EKG and pulse oximetry Findings: Thick secretions were noted in the right upper lobe which was suctioned, right lower lobe had beefy looking mucosa with erythema and bleeding in right midline right lower lobe which was lavaged and cleared. Complications: none
[2024-06-10] MEDS: dexmedeTOMIDidine HCL/NS 400 MCG/100 ML INFUS..BTL 20.82 MCG IVCONT (20:07)
[2024-06-10] MEDS: Albuterol/Iprat 2.5/0.5MG 3 ML AMPUL.NEB INHALE (20:51)
[2024-06-11] VITALS (42 sets, daily range): BP systolic 65–145; BP diastolic 21–74; PULSE 60–75; RESP 14–24; TEMP 34.8–38.6; O2SAT 90–100; BMI 35.2
[2024-06-11] MEDS: 0.9 % Sodium Chloride Flush 3 ML SYRINGE IVFLUSH ×3 (00:02→14:00)
[2024-06-11] MEDS: cefEPime HCl 1 GM in 0.9 % Sodium Chloride 50 ML IV ×2 (00:02→11:17)
[2024-06-11] MEDS: Enoxaparin Sodium 100 MG/ML SYRINGE SUBCUT ×2 (00:03→11:17)
[2024-06-11] MEDS: dexmedeTOMIDidine HCL/NS 400 MCG/100 ML INFUS..BTL 20.82 MCG IVCONT (00:43)
[2024-06-11] MEDS: Doxycycline Monohydrate 100 MG CAPSULE PO (02:29)
[2024-06-11] MEDS: Furosemide 40 MG/4 ML VIAL IVPUSH ×3 (02:29→21:44)
[2024-06-11] MEDS: dexmedeTOMIDidine HCL/NS 400 MCG/100 ML INFUS..BTL 27.76 MCG IVCONT ×3 (05:10→13:58)
[2024-06-11 05:24] LABS: VBG Base Excess 21.4 mmol/L; VBG HCO3 46 mmol/L (22-26); VBG pCO2 50 mmHg; VBG pH 7.56 (7.32-7.43); VBG pO2 35 mmHg
[2024-06-11] MEDS: Pantoprazole Sodium 40 MG/10 ML VIAL IVPUSH (05:46)
[2024-06-11] MEDS: Norepinephrine Bitartrate/D5W 8 MG/250 ML PLAST..BAG 4.91 MG IVCONT (05:46)
[2024-06-11] MEDS: Levothyroxine Sodium 25 MCG TABLET PO (05:46)
[2024-06-11] MEDS: Levothyroxine Sodium 112 MCG TABLET PO (05:46)
[2024-06-11 05:59] LABS: MANUAL DIFF FLAG NO
[2024-06-11 06:09] LABS: Venous Blood Gas Refer to POC result
[2024-06-11 06:18] LABS: Basophils Percent Auto 0.4 % (0-2); Eosinophils Absolute Auto 0.1 X10*3/uL (0.0-0.4); Eosinophils Percent Auto 1.1 % (0-4); Hematocrit 33.7 % (42.0-52.0); Hemoglobin 10.7 g/dl (14.0-18.0); Imm Gran Abs Auto 0.06 X10*3/uL (0.00-0.03); Imm Gran Pct Auto 0.7 % (0.0-0.4); Lymphocytes Absolute Auto 2.1 X10*3/uL (1.2-4.9); Lymphocytes Percent Auto 24.5 % (20-40); Mean Corpuscular HGB Conc 31.8 g/dl (31.0-36.0); Mean Corpuscular Volume 88.2 fL (80.0-98.0); Monocytes Absolute Auto 0.7 X10*3/uL (0.1-1.2); Monocytes Percent Auto 8.6 % (2-11); Neutrophils Absolute Auto 5.6 x10*3/uL (2.0-8.3); Neutrophils Percent Auto 64.7 % (45-73); Platelet Count 239 X10*3/uL (160-400); Red Blood Count 3.82 X10*6/uL (4.60-5.80); White Blood Count 8.6 X10*3/uL (4.8-10.8)
[2024-06-11 06:29] LABS: Albumin Level 3.4 g/dL (3.5-5.0); Anion Gap 13 (12-20); Blood Urea Nitrogen 11 mg/dL (9-16); Calcium 8.1 mg/dL (8.4-10.2); Carbon Dioxide 35 mmol/L (22-29); Chloride 93 mmol/L (96-108); Creatinine Clr Calc Pharmacy 179.5; Estimated Glomerular Filt Rate > 60; Glucose Random 121 mg/dL (60-115); Magnesium 1.6 mg/dL (1.6-2.6); Phosphorus 3.2 mg/dL (2.7-4.5); Potassium 3.4 mmol/L (3.3-5.1); Sodium 138 mmol/L (135-145)
[2024-06-11] MEDS: Potassium Chloride Packet 20 MEQ PACKET 40 MEQ PO (07:07)
[2024-06-11] MEDS: Chlorhexidine Gluc Oral Rinse 15 ML MOUTHWASH BUCCAL (07:32)
[2024-06-11] MEDS: Acetylcysteine 10 % 400 MG/4 ML VIAL INHALE ×2 (08:08→20:43)
--- NOTE | 2024-06-11 08:41 | P.PNCC_ITS ---
Subjective Subjective Date of Service: 06/11/24 Critical Care Time (minutes): 35 Comment: Continues to be on ventilator support Sedation weaned to Precedex only he is much more awake and alert Physical Exam 2 Vital Signs: Vital Signs: Last Vital Signs Temp 100.4 F 06/11/24 08:00 Pulse 60 06/11/24 08:39 Resp 14 06/11/24 08:08 BP 112/64 06/11/24 08:39 Pulse Ox 99 06/11/24 08:00 O2 Del Method Mechanical Ventil ation 06/11/24 08:00 O2 Flow Rate 5 06/08/24 03:11 FiO2 40 06/11/24 08:08 Oxygen Flow Rate 5 06/07/24 09:00 BMI result Body Mass Index 35.2 General: Chronically ill and tired appearing elderly male lying in the bed chronic deep to the ventilator Nutritional Appearance: well nourished and overweight Eyes: appearance normal, both eyes and all related structures; Alignment and Position: alignment normal and position normal Neck: No lymphadenopathy, no thyromegaly Resp: bilateral air entry equal, crackles heard in the left lung, decreased air entry in the right on Cardio: Regular rate, regular rhythm; Heart sounds: S1 normal heart sound present and S2 normal heart sound present GI: soft, nontender, no guarding, no hepatosplenomegaly : bladder normal to inspection, bladder normal to palpation, no renal angle tenderness Skin: no rashes or lesions noted and elasticity normal Neuro: Opens his eyes nods his head yes or no for some commands, paraplegic Objective Data Labs 06/11/24 05:11 06/11/24 05:11 Labs: Laboratory Results - last 24 hr 06/11/24 06/11/24 05:11 05:12 WBC 8.6 RBC 3.82 L Hgb 10.7 L Hct 33.7 L MCV 88.2 MCH 28.0 MCHC 31.8 RDW 18.0 H Plt Count 239 MPV 10.0 Immature Gran % (Auto) 0.7 H Neut % (Auto) 64.7 Lymph % (Auto) 24.5 [place] % (Auto) 8.6 Eos % (Auto) 1.1 Baso % (Auto) 0.4 Lymph # (Auto) 2.1 [place] # (Auto) 0.7 Eos # (Auto) 0.1 Baso # (Auto) 0.0 Abs Immat Gran (auto) 0.06 H Absolute Neuts (auto) 5.6 Absolute Nucleated RBC 0.000 Nucleated RBC % (auto) 0.0 VBG pH 7.56 H VBG pCO2 50 VBG pO2 35 VBG HCO3 46 H VBG O2 Saturation 57.0 VBG Base Excess 21.4 Sodium 138 Potassium 3.4 Chloride 93 L Carbon Dioxide 35 H Anion Gap 13 BUN 11 Creatinine 0.59 Estim Creat Clear Calc 179.5 Estimated GFR > 60 Random Glucose 121 H Calcium 8.1 L Phosphorus 3.2 Magnesium 1.6 Albumin 3.4 L Microbiology Microbiology Results: Microbiology 06/08/24 04:35 Sputum - Suctioned Gram Stain - Final 06/08/24 04:35 Sputum - Suctioned Sputum Culture - Preliminary 06/06/24 09:50 Bronchial Washings Fungal Identification - Preliminary Yeast 06/06/24 09:50 Bronchial Washings Gram Stain - Final 06/06/24 09:50 Bronchial Washings Routine Culture - Final Corynebacterium species 06/02/24 11:00 Bronchial Washings Gram Stain - Final 06/02/24 11:00 Bronchial Washings Routine Culture - Final Staphylococcus aureus 05/29/24 12:41 Blood - Venous Blood Culture - Final No growth after 5 days. 05/29/24 12:41 Blood - Venous Blood Culture - Final No growth after 5 days. 05/29/24 Unknown Urine Catheterized - [place] Catheter Urine Culture - Final Pseudomonas aeruginosa Providencia rettgeri Progress Note: A&P Assessment and plan (1) Cardiac arrest: Status: Acute (2) Acute kidney injury: Status: Acute (3) Shock, septic: Status: Acute (4) Acute confusion: Status: Acute (5) Spinal cord injury: Status: Acute (6) Acute hypoxemic respiratory failure: Status: Acute (7) Aspiration, chronic pulmonary: Status: Acute (8) Pneumonia: Status: Acute Plan 68-year-old gentleman with a PMH of paroxysmal AFib on Eliquis, paraplegia secondary to spinal cord injury, neurogenic bladder with chronic suprapubic catheter in place, recurrent UTIs, colostomy, pacemaker in place, hypothyroidism, chronic pain syndrome, and sacral decubitus ulcer admitted to the hospital on 05/29/2024 for the management of pneumonia. Chest x-ray and CT chest upon admission showed right middle and lower lobe collapse so he underwent bronch on 06/02. xray 06/05 show right complete opacity and had another brochoscopy with lavage on 06/06 he was noted to have significant purulent secretions coming out from the right lung more than the left lung that was lavaged during the bronchoscopy. Bronchoscopic lavage was polymicrobial including staph and Corynebacterium so his antibiotics were appropriately adjusted. On the morning of 06/08/2024 patient went into cardiac arrest, total down time of about 8 minutes before ask, intubated and on ventilator support so transferred to medical ICU. Neuro: Acute encephalopathy possibly due to metabolic encephalopathy On Precedex for anxiolysis Follows some commands Close neurological status monitoring in the ICU every hour Cardiac: Cardiogenic Shock: Possibly secondary to cardiac arrest On low-dose Levophed support, titrate Levophed to keep map above 65 mm Hg Cardiac arrest: Possibly secondary to airway obstruction from thickened secretions Downtime of about 6-8 minutes completed cooling protocol, currently rewarmed CTA chest showed distal pulmonary artery filling defects which might be chronic, there was no clots seen in the central pulmonary artery so this is possibly unlikely to be the cause of cardiac arrest. Respiratory: Acute hypoxemic respiratory failure due to Currently on ventilator support On PRVC mode FiO2 down to 40%, PEEP 6, TV 500, RR 20 Peak pressures and plateau pressures are under the curve Ventilator managent bundle with head end elevation, aspiration precaution, chlorhexidine mouthwash, daily awakening trials, daily spontaneous breathing trials Family refused to consent for tracheostomy, wanted him to make the decision. We will give him a trial of extubation and we will discuss goals of care with him GI: on tube feeds Renal: Creatinine normal 0.59 We will closely monitor I's and O's Avoid nephrotoxic medications on lasix q8h, fluid balance net negative 2.5litres, will decrease to BID Heme: Chronic anemia, closely monitor H&H, transfuse for hemoglobin less than 7 grams/deciliter Endocrine: Blood sugars under control Sliding scale insulin as needed Infectious disease: Sputum cultures positive for MSSA and Citrobacter Urine cultures positive for Pseudomonas and providencia On doxycycline and cefepime for antibiotic coverage Musculoskeletal: Decubitus ulcer prevention protocol Lines: Left IJ TLC Prophylaxis: Lovenox pantoprazole Total critical care time spent is about 40 minutes on ventilator management, sedation management, weaning from ventilator, weaning trials, vasopressor management, close hemodynamic monitoring, review of labs and images at this time is excluding any procedural time. Quality Stroke Does the patient have a stroke diagnosis?: No VTE Prior VTE?: No VTE Risk Level:: Medical - moderate - high VTE Device Contraindication: Treatment Not Indicated VTE Drug Contraindication: N/A - Med Ordered
--- NOTE | 2024-06-11 09:54 | MHC.CM.PN ---
Addendum entered by Silvana Carpenter 06/11/24 12:39: Received call from pt's [facility] sports manager, Jared requesting a status update for [facility]. Per Jared, if pt has a peg/trach placed, he could eventually transfer back to a higher skill level of long-term as they do have sites that can care for trachs and feeding tubes. This information was relayed to pt's brother Moses via email. CM to follow. Original Note: Pt continues in ICU on ventilatory support: more awake: peg/trach postponed per family discussion: they would like pt to have the opportunity to decide if procedure is wanted. Pt has been referred to [facility]. CM to follow for decision/disposition
[2024-06-11] MEDS: dexmedeTOMIDidine HCL/NS 400 MCG/100 ML INFUS..BTL 34.7 MCG IVCONT (11:24)
[2024-06-11 20:27] LABS: Alanine Aminotransferase 55 U/L (0-40); Albumin Level 3.5 g/dL (3.5-5.0); Alkaline Phosphatase 61 U/L (39-117); Anion Gap 11 (12-20); Aspartate Amino Transferase 50 U/L (5-37); Bilirubin Total 0.7 mg/dL (0.0-1.0); Blood Urea Nitrogen 12 mg/dL (9-16); Calcium 7.6 mg/dL (8.4-10.2); Carbon Dioxide 34 mmol/L (22-29); Chloride 96 mmol/L (96-108); Creatinine Clr Calc Pharmacy 182.6; Estimated Glomerular Filt Rate > 60; Glucose Random 106 mg/dL (60-115); Sodium 137 mmol/L (135-145); Total Protein 6.7 g/dL (6.5-8.0)
[2024-06-11] MEDS: Albuterol/Iprat 2.5/0.5MG 3 ML AMPUL.NEB INHALE (20:43)
[2024-06-12] VITALS (44 sets, daily range): BP systolic 98–157; BP diastolic 30–82; PULSE 60–63; RESP 14–24; TEMP 34.9–37.3; O2SAT 90–99; BMI 35.2
[2024-06-12] MEDS: Enoxaparin Sodium 100 MG/ML SYRINGE SUBCUT ×3 (00:29→23:02)
[2024-06-12] MEDS: cefEPime HCl 1 GM in 0.9 % Sodium Chloride 50 ML IV ×3 (00:30→23:02)
[2024-06-12] MEDS: 0.9 % Sodium Chloride Flush 3 ML SYRINGE IVFLUSH ×3 (00:30→15:30)
[2024-06-12] MEDS: Etomidate 20 MG/10 ML VIAL IVPUSH (02:45)
[2024-06-12] MEDS: propofoL 200 MG/20 ML VIAL 50 MG IVPUSH (02:49)
[2024-06-12] MEDS: propofoL 1,000 MG/100 ML VIAL 39.3 MG IVCONT ×10 (02:50→23:34)
--- NOTE | 2024-06-12 02:59 | P.PCNCC_ITS ---
Procedures Date of Service Date of Service: 06/12/24 <Devi Gamble NP - Last Filed: 06/12/24 04:45> 06/12/24 <Ankur Alves MD - Last Filed: 06/12/24 08:52> Intubation Intubation Comments: I was called by nursing to see the pt due to somnolence and hypoxemia.? On entering the room? it was immediately apparent that the patient was unresponsive and grossly hypoventilating, about to arrest. Equipment was quickly gathered; immediately prior to intubation, the Sat was down to 70%. Large volume of thick, tenuous secretions were suctioned from the oropharynx. He was preoxygenated with the Ambu-bag 100% with difficulty and was premedicated with 20mg etomidate, 50mg rocuronium. SpO2 janki to the 90s. The #4 GlideScope was placed in the mouth w ithout objection by the patient. The glottis was easily visualized, and the trachea was easily intubated with a 8.0 ETT via indirect video visualization. Once intubated, voluminous dark malone secretions filled the endotracheal tube and were removed with the suction catheter. The pt began to stir and was given 50mg propofol and a propofol drip was started. Procedure was atraumatic.? BSBE, +CO2.? The tube was secured at 26 cm at the upper lip. The patient tolerated the procedure well. Placement confirmed with chest x-ray. <Devi Gamble NP - Last Filed: 06/12/24 04:45> Consent for Procedure: Emergent-no informed consent obtained <Devi Gamble NP - Last Filed: 06/12/24 04:45> Time out performed: Yes <Devi Gamble NP - Last Filed: 06/12/24 04:45> Sedative: etomidate <eDvi Gamble NP - Last Filed: 06/12/24 04:45> Mg given: 20 <Devi Gamble NP - Last Filed: 06/12/24 04:45> Paralytic: rocuronium <Devi Gamble NP - Last Filed: 06/12/24 04:45> Mg given: 50 <Devi Gamble NP - Last Filed: 06/12/24 04:45> Laryngoscope: fiber optic video scope <EDY Teixeira Last Filed: 06/12/24 04:45> ET tube size: 8 <EDY Teixeira Last Filed: 06/12/24 04:45> ET tube uncuffed: Yes <EDY Teixeira Last Filed: 06/12/24 04:45> Tube secured depth (cm): 26 <EDY Teixeira Last Filed: 06/12/24 04:45> Tube secured location: lips <EDY Teixeiar Last Filed: 06/12/24 04:45> Tube placement confirmation: visualized tube passing through cords, equal breath sounds bilaterally, no breath sounds over epigastrium and confirmation by capnometry <EDY Teixeira Last Filed: 06/12/24 04:45> Patient tolerated procedure: well and no complications <EDY Teixeira Last Filed: 06/12/24 04:45> Intubation complications: hypoxia <EDY Teixeira Last Filed: 06/12/24 04:45>
[2024-06-12] MEDS: Rocuronium Bromide 50 MG/5 ML VIAL IVPUSH (03:00)
[2024-06-12] MEDS: Albuterol/Iprat 2.5/0.5MG 3 ML AMPUL.NEB INHALE ×2 (03:29→07:27)
[2024-06-12] MEDS: fentaNYL citrate/PF 100 MCG/2 ML VIAL 50 MCG IVPUSH (03:41)
[2024-06-12] MEDS: fentaNYL citrate/NS 1,000 MCG/100 ML PLAST..BAG 2.5 MCG IVCONT (03:50)
[2024-06-12] MEDS: Chlorhexidine Gluc Oral Rinse 15 ML MOUTHWASH BUCCAL ×4 (04:24→20:14)
[2024-06-12] MEDS: dexmedeTOMIDidine HCL/NS 400 MCG/100 ML INFUS..BTL 34.7 MCG IVCONT (05:16)
[2024-06-12 05:20] LABS: VBG Base Excess 17.4 mmol/L; VBG HCO3 41 mmol/L (22-26); VBG pCO2 47 mmHg; VBG pH 7.55 (7.32-7.43); VBG pO2 38 mmHg
[2024-06-12 05:21] LABS: Venous Blood Gas Refer to POC result
[2024-06-12 05:37] LABS: MANUAL DIFF FLAG NO
[2024-06-12 05:38] LABS: Basophils Percent Auto 0.3 % (0-2); Eosinophils Absolute Auto 0.1 X10*3/uL (0.0-0.4); Eosinophils Percent Auto 1.1 % (0-4); Hematocrit 32.8 % (42.0-52.0); Hemoglobin 10.5 g/dl (14.0-18.0); Imm Gran Abs Auto 0.09 X10*3/uL (0.00-0.03); Imm Gran Pct Auto 0.8 % (0.0-0.4); Lymphocytes Absolute Auto 1.7 X10*3/uL (1.2-4.9); Lymphocytes Percent Auto 14.5 % (20-40); Mean Corpuscular Hemoglobin 28.3 pg (27.0-33.0); Mean Corpuscular Volume 88.4 fL (80.0-98.0); Mean Platelet Volume 9.5 fL (9.4-12.4); Monocytes Absolute Auto 0.7 X10*3/uL (0.1-1.2); Monocytes Percent Auto 6.2 % (2-11); Neutrophils Absolute Auto 9.2 x10*3/uL (2.0-8.3); Neutrophils Percent Auto 77.1 % (45-73); Platelet Count 217 X10*3/uL (160-400); Red Blood Count 3.71 X10*6/uL (4.60-5.80); Red Cell Distribution Width 17.4 % (11.0-16.0); White Blood Count 11.9 X10*3/uL (4.8-10.8)
[2024-06-12] MEDS: Levothyroxine Sodium 112 MCG TABLET PO (05:39)
[2024-06-12] MEDS: Levothyroxine Sodium 25 MCG TABLET PO (05:39)
[2024-06-12 05:45] LABS: Albumin Level 3.5 g/dL (3.5-5.0)
[2024-06-12 06:16] LABS: Anion Gap 16 (12-20)
[2024-06-12 06:20] LABS: Blood Urea Nitrogen 15 mg/dL (9-16); Calcium 7.9 mg/dL (8.4-10.2); Carbon Dioxide 31 mmol/L (22-29); Chloride 92 mmol/L (96-108); Creatinine Clr Calc Pharmacy 173.6; Estimated Glomerular Filt Rate > 60; Glucose Random 126 mg/dL (60-115); Magnesium 1.8 mg/dL (1.6-2.6); Phosphorus 2.9 mg/dL (2.7-4.5); Potassium 3.4 mmol/L (3.3-5.1); Sodium 136 mmol/L (135-145)
--- NOTE | 2024-06-12 06:26 | PC.NURSE ---
Upon initial assessment at approximately 1900- pt A+Ox1, confused, garbled/unclear speech, able to follow simple commands, moves BL UE, BL LE flaccid. On 6L Oxymask, SpO2 >90%. Rhonchi throughout. Requiring frequent oral suctioning- thick cream secretions. At approximately 0240 pt became hypoxic and unresponsive. [employer] PROFESSIONAL and RT called to bedside. Decision made to emergently intubate- given Etomidate 20mg IVP, Propofol 50mg IVP and 50mg Donis IVP for RSI. Propofol gtt started for sedation. OGT placed and confirmed by chest XR. ETT 8.0, 26 at the lip. ACVC+ settings. FiO2 100%. Family attempted to be updated by [employer] PROFESSIONAL- unable to reach. See EMR/ flowsheet for further details.
[2024-06-12] MEDS: Acetylcysteine 10 % 400 MG/4 ML VIAL INHALE ×2 (07:28→19:10)
[2024-06-12] MEDS: Furosemide 40 MG/4 ML VIAL IVPUSH ×2 (07:43→20:14)
[2024-06-12] MEDS: dexmedeTOMIDidine HCL/NS 400 MCG/100 ML INFUS..BTL 27.76 MCG IVCONT (08:28)
[2024-06-12] MEDS: fentaNYL citrate/NS 1,000 MCG/100 ML PLAST..BAG 12.5 MCG IVCONT ×2 (08:40→16:47)
--- NOTE | 2024-06-12 08:52 | PM.CCPN ---
Subjective Subjective Date of Service: 06/12/24 Critical Care Time (minutes): 35 Comment: Patient was extubated during the day as his weaning parameters look good. But patient remained drowsy postextubation could only say his name and where he was a few times. In the night patient was unable to clear his secretions, he began hypoventilating so he was emergently intubated and placed on ventilator support. During intubation large pool of thick purulent secretion was seen in his oropharynx. Physical Exam Vital Signs: Vital Signs: Last Vital Signs Temp 97.9 F 06/12/24 08:00 Pulse 60 06/12/24 08:00 Resp 18 06/12/24 08:00 BP 131/38 L 06/12/24 08:00 Pulse Ox 96 06/12/24 08:00 O2 Del Method Mechanical Ventil ation 06/12/24 08:00 O2 Flow Rate 6 06/12/24 01:00 FiO2 50 06/12/24 08:18 Oxygen Flow Rate 5 06/07/24 09:00 BMI result Body Mass Index 35.2 General: In acute distress, ill appearing and tired appearing Nutritional Appearance: well nourished and overweight Eyes: appearance normal, both eyes and all related structures; Alignment and Position: alignment normal and position normal Neck: No lymphadenopathy, no thyromegaly Resp: bilateral air entry equal, o crackles heard in the left lung more than right lung Cardio: Regular rate, regular rhythm; Heart sounds: S1 normal heart sound present and S2 normal heart sound present GI: soft, nontender, no guarding, no hepatosplenomegaly : bladder normal to inspection, bladder normal to palpation, no renal angle tenderness Skin: no rashes or lesions noted and elasticity normal Neuro: Unable to do neuro exam as patient is sedated Objective Data Labs 06/12/24 05:13 06/12/24 05:13 Labs: Laboratory Results - last 24 hr 06/11/24 06/12/24 06/12/24 19:52 05:09 05:13 WBC 11.9 H RBC 3.71 L Hgb 10.5 L Hct 32.8 L MCV 88.4 MCH 28.3 MCHC 32.0 RDW 17.4 H Plt Count 217 MPV 9.5 Immature Gran % (Auto) 0.8 H Neut % (Auto) 77.1 H Lymph % (Auto) 14.5 L [place] % (Auto) 6.2 Eos % (Auto) 1.1 Baso % (Auto) 0.3 Lymph # (Auto) 1.7 [place] # (Auto) 0.7 Eos # (Auto) 0.1 Baso # (Auto) 0.0 Abs Immat Gran (auto) 0.09 H Absolute Neuts (auto) 9.2 H Absolute Nucleated RBC 0.000 Nucleated RBC % (auto) 0.0 VBG pH 7.55 H VBG pCO2 47 VBG pO2 38 VBG HCO3 41 H VBG O2 Saturation 65.0 VBG Base Excess 17.4 Sodium 137 136 Potassium 4.0 3.4 Chloride 96 92 L Carbon Dioxide 34 H 31 H Anion Gap 11 L 16 BUN 12 15 Creatinine 0.58 0.61 Estim Creat Clear Calc 182.6 173.6 Estimated GFR > 60 > 60 Random Glucose 106 126 H Calcium 7.6 L D 7.9 L Phosphorus 2.9 Magnesium 1.8 Total Bilirubin 0.7 AST 50 H ALT 55 H Alkaline Phosphatase 61 Total Protein 6.7 Albumin 3.5 3.5 Microbiology Microbiology Results: Microbiology 06/08/24 04:35 Sputum - Suctioned Gram Stain - Final 06/08/24 04:35 Sputum - Suctioned Sputum Culture - Final Methicillin Res Staph Aureus 06/06/24 09:50 Bronchial Washings Fungal Identification - Preliminary Regine albicans 06/06/24 09:50 Bronchial Washings Gram Stain - Final 06/06/24 09:50 Bronchial Washings Routine Culture - Final Corynebacterium species 06/02/24 11:00 Bronchial Washings Gram Stain - Final 06/02/24 11:00 Bronchial Washings Routine Culture - Final Staphylococcus aureus 05/29/24 12:41 Blood - Venous Blood Culture - Final No growth after 5 days. 05/29/24 12:41 Blood - Venous Blood Culture - Final No growth after 5 days. 05/29/24 Unknown Urine Catheterized - [place] Catheter Urine Culture - Final Pseudomonas aeruginosa Providencia rettgeri Progress Note: A&P Assessment and plan (1) Cardiac arrest: Status: Acute (2) Acute kidney injury: Status: Acute (3) UTI (urinary tract infection): Status: Acute (4) Spinal cord injury: Status: Acute (5) Acute hypoxemic respiratory failure: Status: Acute (6) Aspiration, chronic pulmonary: Status: Acute (7) Pulmonary atelectasis: Status: Acute (8) Pneumonia: Status: Acute (9) Acute confusion: Status: Acute Plan 68-year-old gentleman with a PMH of paroxysmal AFib on Eliquis, paraplegia secondary to spinal cord injury, neurogenic bladder with chronic suprapubic catheter in place, recurrent UTIs, colostomy, pacemaker in place, hypothyroidism, chronic pain syndrome, and sacral decubitus ulcer admitted to the hospital on 05/29/2024 for the management of pneumonia. Chest x-ray and CT chest upon admission showed right middle and lower lobe collapse so he underwent bronch on 06/02. xray 06/05 show right complete opacity and had another brochoscopy with lavage on 06/06 he was noted to have significant purulent secretions coming out from the right lung more than the left lung that was lavaged during the bronchoscopy. Bronchoscopic lavage was polymicrobial including staph and Corynebacterium so his antibiotics were appropriately adjusted. On the morning of 06/08/2024 patient went into cardiac arrest, total down time of about 8 minutes before ask, intubated and on ventilator support so transferred to medical ICU. Neuro: Acute encephalopathy possibly due to metabolic encephalopathy On propofol for sedation, as needed for analgesia We will get MRI brain to look for any hypoxic injury Close neurological status monitoring in the ICU every hour Cardiac: Cardiogenic Shock: Possibly secondary to cardiac arrest On low-dose Levophed support, titrate Levophed to keep map above 65 mm Hg Cardiac arrest: Possibly secondary to airway obstruction from thickened secretions Downtime of about 6-8 minutes completed cooling protocol CTA chest showed distal pulmonary artery filling defects which might be chronic, there was no clots seen in the central pulmonary artery so this is possibly unlikely to be the cause of cardiac arrest. Respiratory: Acute hypoxemic respiratory failure due to aspiration pneumonia Currently on ventilator support On PRVC mode FiO2 80%, PEEP 6, TV 500, RR 20 Peak pressures and plateau pressures are under the curve Ventilator managent bundle with head end elevation, aspiration precaution, chlorhexidine mouthwash, daily awakening trials, daily spontaneous breathing trials Family refused to consent for tracheostomy, wanted him to make the decision; so a trial of extubation was given. Reintubated overnight as the patient was unable to clear oropharyngeal secretion and had very poor mental status. I would be uncomfortable extubating him him again unless he is completely with it or he gets trach GI: on tube feeds Renal: Creatinine normal 0.59 We will closely monitor I's and O's Avoid nephrotoxic medications on lasix q12h, fluid balance net negative 2.3litres, will cut down tomorrow Heme: Chronic anemia, closely monitor H&H, transfuse for hemoglobin less than 7 grams/deciliter Endocrine: Blood sugars under control Sliding scale insulin as needed Infectious disease: Sputum cultures positive for MSSA and Citrobacter, repeat sputum culture positive for MRSA- added vancomycin Urine cultures positive for Pseudomonas and providencia On doxycycline and cefepime for antibiotic coverage Musculoskeletal: Decubitus ulcer prevention protocol stage 3 in coccyx, wound care consulted Lines: Left IJ TLC Prophylaxis: Lovenox pantoprazole Quality Stroke Does the patient have a stroke diagnosis?: No VTE Prior VTE?: No VTE Risk Level:: Medical - moderate - high VTE Device Contraindication: Treatment Not Indicated VTE Drug Contraindication: N/A - Med Ordered
[2024-06-12] MEDS: vancomycin/NS 2,000 MG/500 ML PLAST..BAG 250 MG IV (10:56)
--- NOTE | 2024-06-12 11:07 | MHC.CLN ---
F/U PT RE-INTUBATED AND SEDATED CURRENTLY NPO DISCUSSED AT ROUNDS WITH MD-PLAN TO RE-START TF TODAY RECOMMEND PROMOTE AT MAX GOAL RATE 65ML/HR WITH 30ML PROSOURCE BID WITH 240ML FREE WATER FLUSHES Q 4 HRS TO PROVIDE 1680KCALS (2509TOTAL KCALS WITH SEDATION; 27KCALS/KG BASED ON IBW), 127.5G PROTEIN (1.4G/KG), 2749ML TOTAL WATER FROM FORMULA AND FLUSHES (30ML/KG) TF WILL PROMOTE WOUND HEALING MONITOR TOLERANCE AND LYTES
--- NOTE | 2024-06-12 12:39 | PHA.PROG ---
Admission Date/Time: May 29, 2024 15:29 Indication: RESP Weight in k kg Serum Creatinine - Last 168 Hours 06/08/24 06/09/24 06/09/24 05:10 05:14 20:24 Creatinine 0.58 0.49 L 0.50 06/10/24 06/11/24 06/11/24 04:24 05:11 19:52 Creatinine 0.57 0.59 0.58 06/12/24 05:13 Creatinine 0.61 Estimated CrCl and GFR - Last 168 Hours 06/08/24 06/09/24 06/09/24 05:10 05:14 20:24 Estim Creat Clear Calc 182.5 222.6 218.1 Estimated GFR > 60 > 60 > 60 06/10/24 06/11/24 06/11/24 04:24 05:11 19:52 Estim Creat Clear Calc 191.3 179.5 182.6 Estimated GFR > 60 > 60 > 60 06/12/24 05:13 Estim Creat Clear Calc 173.6 Estimated GFR > 60 Vancomycin Loading Dose: 1999 Current Vancomycin Dosing Regimen: 1500 Q12 Vancomycin Monitoring using AUC goal of 400 - 600 range with trough as surrogate marker: 547 Date and Time for next Vancomycin Level to be drawn: 06/13 @ 2100 Pharmacist Comments on Vancomycin Plan: Vancomycin dosing will take advantage of [employer] as a clinical decision support tool that uses Bayesian modeling to calculate individual patient's pharmacokinetic parameters and forecast the patient's drug concentration time course with the target goal AUC 24 range of 400 - 600 mg/L/hr.
[2024-06-12] MEDS: Norepinephrine Bitartrate/D5W 8 MG/250 ML PLAST..BAG 9.82 MG IVCONT (13:12)
--- NOTE | 2024-06-12 13:33 | MHC.CM.PN ---
Addendum entered by Silvana Carpenter 06/12/24 13:45: Call placed to FLO Coleman at pt's custodial requesting a copy of pt's updated HCP naming his sister Analia and brother Moses as his agents. Pt's previous HCP, his sister Ifeanyi has passed. Will await callback from Jared Original Note: Pt required emergent intubation last evening d/t unmanaged secretions and failing airway. Repeat CXR without improvement: MRI of head today to ensure pt did not experience an anoxic injury during CPR. Pt will likely need trach/peg - family is considering options and would like pt to be able to make the care decisions. Pt from [facility]. CM to follow
[2024-06-12] MEDS: dexmedeTOMIDidine HCL/NS 400 MCG/100 ML INFUS..BTL 6.94 MCG IVCONT (15:29)
[2024-06-12] MEDS: Doxycycline Monohydrate 100 MG CAPSULE PO (15:30)
--- NOTE | 2024-06-12 16:03 | HO.WOUND ---
Wound Consult: Follow up - Bed Needs Currently patient remains in ICU level of care. See chart review for details - cardiac arrest on 06/08 and recent intubation on 06/12/24. Currently on [employer] [facility] 3 Platform bed with bolsters in place. There was question of whether headboard is able to be removed or note. Confirmed headboard can be removed and bed height was able to adjust lower and higher. Of importance there is a control panel at the head of the bed that limits headboard removal when engaged. Control panel since disengaged and headboard removal now accessible. Direct care Nurse, Educator and Director aware.
--- NOTE | 2024-06-12 19:19 | HO.SKINPHOTO ---
Updated skin photo Location: b/l buttocks and coccyx Category: PI Stage: III
[2024-06-12] MEDS: vancomycin HCL 1,500 MG in 0.9 % Sodium Chloride 500 ML 333.33 MG IV (23:00)
[2024-06-13] VITALS (39 sets, daily range): BP systolic 90–160; BP diastolic 15–82; PULSE 60–83; RESP 14–20; TEMP 34.9–37.6; O2SAT 91–99; BMI 34.1
[2024-06-13] MEDS: fentaNYL citrate/NS 1,000 MCG/100 ML PLAST..BAG 12.5 MCG IVCONT ×3 (00:49→16:29)
[2024-06-13] MEDS: propofoL 1,000 MG/100 ML VIAL 39.3 MG IVCONT ×9 (02:05→22:17)
[2024-06-13] MEDS: Doxycycline Monohydrate 100 MG CAPSULE PO ×2 (02:10→14:13)
[2024-06-13 04:35] LABS: VBG Base Excess 18.9 mmol/L; VBG HCO3 43 mmol/L (22-26); VBG pCO2 48 mmHg; VBG pH 7.56 (7.32-7.43); VBG pO2 38 mmHg
[2024-06-13 04:38] LABS: Venous Blood Gas Refer to POC result
[2024-06-13] MEDS: Norepinephrine Bitartrate/D5W 8 MG/250 ML PLAST..BAG 12.27 MG IVCONT (04:44)
[2024-06-13 05:05] LABS: MANUAL DIFF FLAG NO
[2024-06-13 05:06] LABS: Basophils Percent Auto 0.5 % (0-2); Eosinophils Absolute Auto 0.4 X10*3/uL (0.0-0.4); Hematocrit 33.9 % (42.0-52.0); Hemoglobin 10.5 g/dl (14.0-18.0); Imm Gran Abs Auto 0.06 X10*3/uL (0.00-0.03); Imm Gran Pct Auto 0.8 % (0.0-0.4); Lymphocytes Absolute Auto 1.7 X10*3/uL (1.2-4.9); Lymphocytes Percent Auto 21.6 % (20-40); Mean Corpuscular Hemoglobin 27.5 pg (27.0-33.0); Mean Corpuscular Volume 88.7 fL (80.0-98.0); Mean Platelet Volume 9.3 fL (9.4-12.4); Monocytes Absolute Auto 0.8 X10*3/uL (0.1-1.2); Monocytes Percent Auto 9.8 % (2-11); Neutrophils Percent Auto 62.3 % (45-73); Platelet Count 217 X10*3/uL (160-400); Red Blood Count 3.82 X10*6/uL (4.60-5.80); Red Cell Distribution Width 17.6 % (11.0-16.0)
[2024-06-13 05:23] LABS: Albumin Level 3.4 g/dL (3.5-5.0); Anion Gap 15 (12-20); Blood Urea Nitrogen 11 mg/dL (9-16); Calcium 7.7 mg/dL (8.4-10.2); Carbon Dioxide 33 mmol/L (22-29); Chloride 95 mmol/L (96-108); Creatinine Clr Calc Pharmacy 182.6; Estimated Glomerular Filt Rate > 60; Glucose Random 112 mg/dL (60-115); Magnesium 1.8 mg/dL (1.6-2.6); Phosphorus 2.3 mg/dL (2.7-4.5); Potassium 3.2 mmol/L (3.3-5.1); Sodium 140 mmol/L (135-145)
[2024-06-13] MEDS: Calcium Gluconate/NaCl,Iso-Osm 1 GM/50 ML PLAST..BAG IV (05:44)
[2024-06-13] MEDS: Potassium Phosphate/NS 15 MMOL/250 ML PLAST..BAG 62.5 MMOL IV ×2 (05:50→10:12)
[2024-06-13] MEDS: Levothyroxine Sodium 25 MCG TABLET PO (05:54)
[2024-06-13] MEDS: Levothyroxine Sodium 112 MCG TABLET PO (05:54)
[2024-06-13] MEDS: 0.9 % Sodium Chloride Flush 3 ML SYRINGE IVFLUSH ×3 (07:49→23:20)
[2024-06-13] MEDS: Furosemide 40 MG/4 ML VIAL IVPUSH ×2 (07:49→20:33)
[2024-06-13] MEDS: Chlorhexidine Gluc Oral Rinse 15 ML MOUTHWASH BUCCAL ×3 (07:49→20:33)
[2024-06-13] MEDS: Albuterol Sulfate (0.083%) 2.5 MG/3 ML VIAL.NEB INHALE (07:59)
[2024-06-13] MEDS: Acetylcysteine 10 % 400 MG/4 ML VIAL INHALE ×2 (07:59→19:06)
--- NOTE | 2024-06-13 08:48 | PM.CCPN ---
Subjective Subjective Date of Service: 06/13/24 Critical Care Time (minutes): 35 Comment: Continues to be on ventilator support On propofol for sedation No new events overnight Physical Exam Vital Signs: Vital Signs: Last Vital Signs Temp 97.5 F 06/13/24 08:00 Pulse 60 06/13/24 08:32 Resp 15 06/13/24 08:00 BP 95/20 L 06/13/24 08:32 Pulse Ox 92 06/13/24 08:00 O2 Del Method Mechanical Ventil ation 06/13/24 08:00 O2 Flow Rate 6 06/12/24 01:00 FiO2 30 06/13/24 08:00 Oxygen Flow Rate 5 06/07/24 09:00 BMI result Body Mass Index 34.1 General: Chronically ill, obese patient lying unresponsive in the bed connected to the ventilator Nutritional Appearance: well nourished and overweight Eyes: appearance normal, both eyes and all related structures; Alignment and Position: alignment normal and position normal Neck: No lymphadenopathy, no thyromegaly Resp: bilateral air entry equal, significant crackles heard in the left lung area than the right lung area Cardio: Regular rate, regular rhythm; Heart sounds: S1 normal heart sound present and S2 normal heart sound present GI: soft, nontender, no guarding, no hepatosplenomegaly : bladder normal to inspection, bladder normal to palpation, no renal angle tenderness Skin: no rashes or lesions noted and elasticity normal Neuro: Sedated, no focal deficits Objective Data Labs 06/13/24 04:28 06/13/24 04:28 Labs: Laboratory Results - last 24 hr 06/13/24 06/13/24 04:24 04:28 WBC 8.0 RBC 3.82 L Hgb 10.5 L Hct 33.9 L MCV 88.7 MCH 27.5 MCHC 31.0 RDW 17.6 H Plt Count 217 MPV 9.3 L Immature Gran % (Auto) 0.8 H Neut % (Auto) 62.3 Lymph % (Auto) 21.6 [place] % (Auto) 9.8 Eos % (Auto) 5.0 H Baso % (Auto) 0.5 Lymph # (Auto) 1.7 [place] # (Auto) 0.8 Eos # (Auto) 0.4 Baso # (Auto) 0.0 Abs Immat Gran (auto) 0.06 H Absolute Neuts (auto) 5.0 Absolute Nucleated RBC 0.000 Nucleated RBC % (auto) 0.0 VBG pH 7.56 H VBG pCO2 48 VBG pO2 38 VBG HCO3 43 H VBG O2 Saturation 60.0 VBG Base Excess 18.9 Sodium 140 Potassium 3.2 L Chloride 95 L Carbon Dioxide 33 H Anion Gap 15 BUN 11 Creatinine 0.58 Estim Creat Clear Calc 182.6 Estimated GFR > 60 Random Glucose 112 Calcium 7.7 L Phosphorus 2.3 L Magnesium 1.8 Albumin 3.4 L Microbiology Microbiology Results: Microbiology 06/08/24 04:35 Sputum - Suctioned Gram Stain - Final 06/08/24 04:35 Sputum - Suctioned Sputum Culture - Final Methicillin Res Staph Aureus 06/06/24 09:50 Bronchial Washings Fungal Identification - Preliminary Regine albicans 06/06/24 09:50 Bronchial Washings Gram Stain - Final 06/06/24 09:50 Bronchial Washings Routine Culture - Final Corynebacterium species 06/02/24 11:00 Bronchial Washings Gram Stain - Final 06/02/24 11:00 Bronchial Washings Routine Culture - Final Staphylococcus aureus 05/29/24 12:41 Blood - Venous Blood Culture - Final No growth after 5 days. 05/29/24 12:41 Blood - Venous Blood Culture - Final No growth after 5 days. 05/29/24 Unknown Urine Catheterized - [place] Catheter Urine Culture - Final Pseudomonas aeruginosa Providencia rettgeri Progress Note: A&P Assessment and plan (1) Cardiac arrest: Status: Acute (2) Acute kidney injury: Status: Acute (3) Chronic osteomyelitis with draining sinus, other site: Status: Acute (4) Acute hypoxemic respiratory failure: Status: Acute (5) Aspiration, chronic pulmonary: Status: Acute (6) Pulmonary atelectasis: Status: Acute (7) Pneumonia: Status: Acute (8) Spinal cord injury: Status: Acute Plan 68-year-old gentleman with a PMH of paroxysmal AFib on Eliquis, paraplegia secondary to spinal cord injury, neurogenic bladder with chronic suprapubic catheter in place, recurrent UTIs, colostomy, pacemaker in place, hypothyroidism, chronic pain syndrome, and sacral decubitus ulcer admitted to the hospital on 05/29/2024 for the management of pneumonia. Chest x-ray and CT chest upon admission showed right middle and lower lobe collapse so he underwent bronch on 06/02. xray 06/05 show right complete opacity and had another brochoscopy with lavage on 06/06 he was noted to have significant purulent secretions coming out from the right lung more than the left lung that was lavaged during the bronchoscopy. Bronchoscopic lavage was polymicrobial including staph and Corynebacterium so his antibiotics were appropriately adjusted. On the morning of 06/08/2024 patient went into cardiac arrest, total down time of about 8 minutes before ask, intubated and on ventilator support so transferred to medical ICU. Neuro: Acute encephalopathy possibly due to metabolic encephalopathy On propofol for sedation, as needed for analgesia Pending MRI brain to look for any hypoxic injury, as we need more information on his pacemaker Close neurological status monitoring in the ICU every hour Cardiac: Cardiogenic Shock: Possibly secondary to cardiac arrest On low-dose Levophed support, titrate Levophed to keep map above 65 mm Hg Cardiac arrest: Possibly secondary to airway obstruction from thickened secretions Downtime of about 6-8 minutes completed cooling protocol CTA chest showed distal pulmonary artery filling defects which might be chronic, there was no clots seen in the central pulmonary artery so this is possibly unlikely to be the cause of cardiac arrest. Respiratory: Acute hypoxemic respiratory failure due to aspiration pneumonia Currently on ventilator support On PRVC mode FiO2 down to 30%, PEEP 10, TV 500, RR 20 Peak pressures and plateau pressures are under the curve Ventilator managent bundle with head end elevation, aspiration precaution, chlorhexidine mouthwash, daily awakening trials, daily spontaneous breathing trials Family refused to consent for tracheostomy, wanted him to make the decision; so a trial of extubation was given. Reintubated as the patient was unable to clear oropharyngeal secretion and had very poor mental status. I would be uncomfortable extubating him him again unless his mentation is completely normal with no secretions or he gets trach. Currently he has significant secretions GI: on tube feeds Renal: Creatinine normal 0.59 We will closely monitor I's and O's Avoid nephrotoxic medications on lasix q12h, fluid balance net negative 1 L Heme: Chronic anemia, closely monitor H&H, transfuse for hemoglobin less than 7 grams/deciliter Endocrine: Blood sugars under control Sliding scale insulin as needed Hypothyroidism: on levothyroxine Infectious disease: Sputum cultures positive for MSSA and Citrobacter, repeat sputum culture positive for MRSA- added vancomycin Urine cultures positive for Pseudomonas and providencia On doxycycline and cefepime for antibiotic coverage Musculoskeletal: Decubitus ulcer prevention protocol stage 3 in coccyx, wound care consulted Lines: Left IJ TLC Prophylaxis: Lovenox pantoprazole Quality Stroke Does the patient have a stroke diagnosis?: No VTE Prior VTE?: No VTE Risk Level:: Medical - moderate - high VTE Device Contraindication: Treatment Not Indicated VTE Drug Contraindication: N/A - Med Ordered
[2024-06-13] MEDS: vancomycin HCL 1,500 MG in 0.9 % Sodium Chloride 500 ML 333.33 MG IV (10:13)
--- NOTE | 2024-06-13 10:57 | MHC.CLN ---
F/U PT REMAINS INTUBATED AND SEDATED DISCUSSED AT ROUNDS WITH DIET RX: NPO CONTINUE PROMOTE AT MAX GOAL RATE 65ML/HR WITH 30ML PROSOURCE BID WITH 240ML FREE WATER FLUSHES Q 4 HRS PROVIDES 1680KCALS (2717TOTAL KCALS WITH SEDATION; 29.5 KCALS/KG BASED ON IBW), 127.5G PROTEIN (1.4G/KG), 2749ML TOTAL WATER FROM FORMULA AND FLUSHES (30ML/KG) TF WILL PROMOTE WOUND HEALING MONITOR TOLERANCE AND LYTES
[2024-06-13] MEDS: cefEPime HCl 1 GM in 0.9 % Sodium Chloride 50 ML IV ×2 (12:20→23:26)
[2024-06-13] MEDS: Enoxaparin Sodium 100 MG/ML SYRINGE SUBCUT ×2 (12:21→23:21)
--- NOTE | 2024-06-13 15:41 | MHC.CM.PN ---
Pt continues on ventilatory support after a very short period of trial extubation. Family would like to proceed with trach/peg placement if the MRI (06/14) shows no neurological impairment. Updated HCP sent in from longterm naming pt's brother Moses as the proxy. All three of pt's siblings, Moses, Analia and Gualberto make care decisions together. Pt being followed by [facility]: will send updates once pt has trach/peg placed. CM to follow
[2024-06-13] MEDS: Norepinephrine Bitartrate/D5W 8 MG/250 ML PLAST..BAG 17.18 MG IVCONT (19:14)
[2024-06-13 21:19] LABS: Vancomycin Random 21.2 mcg/mL (15-20)
--- NOTE | 2024-06-13 21:28 | HE.PHANOTE ---
RE: VANCO DOSING Trough came back as 21.2 mg/L when predicted to be 18 mg/L. Dose is decreased to 1000 mg q12h, next trough is scheduled for 06/14/24 @2100.
[2024-06-13] MEDS: vancomycin HCL 1,000 MG in 0.9 % Sodium Chloride 250 ML 270 MG IV (23:19)
[2024-06-14] VITALS (44 sets, daily range): BP systolic 95–199; BP diastolic 22–95; PULSE 60–78; RESP 14–25; TEMP 35.1–38.2; O2SAT 91–97; BMI 33.5
[2024-06-14] MEDS: fentaNYL citrate/NS 1,000 MCG/100 ML PLAST..BAG 1.25 MCG IVCONT (00:02)
[2024-06-14] MEDS: propofoL 1,000 MG/100 ML VIAL 39.3 MG IVCONT ×10 (00:39→22:01)
[2024-06-14 05:09] LABS: VBG Base Excess 20.3 mmol/L; VBG HCO3 47 mmol/L (22-26); VBG pCO2 64 mmHg; VBG pH 7.47 (7.32-7.43); VBG pO2 45 mmHg
[2024-06-14 05:14] LABS: Venous Blood Gas Refer to POC result
[2024-06-14 05:31] LABS: Basophils Absolute Auto 0.1 X10*3/uL (0.0-0.2); Basophils Percent Auto 0.7 % (0-2); Eosinophils Absolute Auto 0.4 X10*3/uL (0.0-0.4); Eosinophils Percent Auto 4.7 % (0-4); Hematocrit 35.3 % (42.0-52.0); Imm Gran Abs Auto 0.08 X10*3/uL (0.00-0.03); Lymphocytes Absolute Auto 2.1 X10*3/uL (1.2-4.9); Lymphocytes Percent Auto 25.4 % (20-40); MANUAL DIFF FLAG NO; Mean Corpuscular HGB Conc 31.2 g/dl (31.0-36.0); Mean Corpuscular Hemoglobin 28.1 pg (27.0-33.0); Mean Corpuscular Volume 90.1 fL (80.0-98.0); Mean Platelet Volume 9.6 fL (9.4-12.4); Neutrophils Absolute Auto 4.6 x10*3/uL (2.0-8.3); Neutrophils Percent Auto 56.2 % (45-73); Platelet Count 256 X10*3/uL (160-400); Red Blood Count 3.92 X10*6/uL (4.60-5.80); Red Cell Distribution Width 17.7 % (11.0-16.0); White Blood Count 8.2 X10*3/uL (4.8-10.8)
[2024-06-14] MEDS: Levothyroxine Sodium 25 MCG TABLET PO (05:36)
[2024-06-14] MEDS: Levothyroxine Sodium 112 MCG TABLET PO (05:36)
[2024-06-14] MEDS: Norepinephrine Bitartrate/D5W 8 MG/250 ML PLAST..BAG 27 MG IVCONT ×2 (05:37→13:45)
[2024-06-14 05:46] LABS: Albumin Level 3.6 g/dL (3.5-5.0); Anion Gap 15 (12-20); Blood Urea Nitrogen 10 mg/dL (9-16); Calcium 7.8 mg/dL (8.4-10.2); Carbon Dioxide 37 mmol/L (22-29); Chloride 96 mmol/L (96-108); Creatinine Clr Calc Pharmacy 159.2; Estimated Glomerular Filt Rate > 60; Glucose Random 146 mg/dL (60-115); Magnesium 1.8 mg/dL (1.6-2.6); Phosphorus 2.4 mg/dL (2.7-4.5); Potassium 3.6 mmol/L (3.3-5.1); Sodium 144 mmol/L (135-145)
[2024-06-14] MEDS: Calcium Gluconate/NaCl,Iso-Osm 1 GM/50 ML PLAST..BAG IV (06:28)
[2024-06-14] MEDS: Potassium Phosphate/NS 15 MMOL/250 ML PLAST..BAG 62.5 MMOL IV (06:28)
[2024-06-14] MEDS: Chlorhexidine Gluc Oral Rinse 15 ML MOUTHWASH BUCCAL ×3 (08:05→20:50)
[2024-06-14] MEDS: 0.9 % Sodium Chloride Flush 3 ML SYRINGE IVFLUSH ×2 (08:05→14:27)
[2024-06-14] MEDS: fentaNYL citrate/NS 1,000 MCG/100 ML PLAST..BAG 12.5 MCG IVCONT (08:06)
[2024-06-14] MEDS: Furosemide 40 MG/4 ML VIAL IVPUSH ×2 (08:06→20:50)
[2024-06-14] MEDS: Acetylcysteine 10 % 400 MG/4 ML VIAL INHALE ×2 (08:09→20:30)
--- NOTE | 2024-06-14 08:50 | PM.CCPN ---
Subjective Subjective Date of Service: 06/14/24 Critical Care Time (minutes): 35 Comment: Continues to be on ventilator support No new events Physical Exam Vital Signs: Vital Signs: Last Vital Signs Temp 100.2 F 06/14/24 08:00 Pulse 66 06/14/24 08:14 Resp 14 06/14/24 08:14 BP 134/42 L 06/14/24 08:00 Pulse Ox 94 06/14/24 08:00 O2 Del Method Mechanical Ventil ation 06/14/24 08:00 O2 Flow Rate 6 06/12/24 01:00 FiO2 50 06/14/24 08:14 Oxygen Flow Rate 5 06/07/24 09:00 BMI result Body Mass Index 33.5 General: In acute distress, ill appearing and tired appearing Nutritional Appearance: well nourished and overweight Eyes: appearance normal, both eyes and all related structures; Alignment and Position: alignment normal and position normal Neck: No lymphadenopathy, no thyromegaly Resp: bilateral air entry equal, bilateral diffuse conducted sounds heard Cardio: Regular rate, regular rhythm; Heart sounds: S1 normal heart sound present and S2 normal heart sound present GI: soft, nontender, no guarding, no hepatosplenomegaly : bladder normal to inspection, bladder normal to palpation, no renal angle tenderness Skin: no rashes or lesions noted and elasticity normal Neuro: o no focal deficit, moves all extremities Objective Data Labs 06/14/24 05:05 06/14/24 05:05 Labs: Laboratory Results - last 24 hr 06/13/24 06/14/24 06/14/24 20:58 04:57 05:05 WBC 8.2 RBC 3.92 L Hgb 11.0 L Hct 35.3 L MCV 90.1 MCH 28.1 MCHC 31.2 RDW 17.7 H Plt Count 256 MPV 9.6 Immature Gran % (Auto) 1.0 H Neut % (Auto) 56.2 Lymph % (Auto) 25.4 [place] % (Auto) 12.0 H Eos % (Auto) 4.7 H Baso % (Auto) 0.7 Lymph # (Auto) 2.1 [place] # (Auto) 1.0 Eos # (Auto) 0.4 Baso # (Auto) 0.1 Abs Immat Gran (auto) 0.08 H Absolute Neuts (auto) 4.6 Absolute Nucleated RBC 0.000 Nucleated RBC % (auto) 0.0 VBG pH 7.47 H VBG pCO2 64 VBG pO2 45 VBG HCO3 47 H VBG O2 Saturation 71.0 VBG Base Excess 20.3 Sodium 144 Potassium 3.6 Chloride 96 Carbon Dioxide 37 H Anion Gap 15 BUN 10 Creatinine 0.65 Estim Creat Clear Calc 159.2 Estimated GFR > 60 Random Glucose 146 H Calcium 7.8 L Phosphorus 2.4 L Magnesium 1.8 Albumin 3.6 Random Vancomycin 21.2 H Microbiology Microbiology Results: Microbiology 06/08/24 04:35 Sputum - Suctioned Gram Stain - Final 06/08/24 04:35 Sputum - Suctioned Sputum Culture - Final Methicillin Res Staph Aureus 06/06/24 09:50 Bronchial Washings Fungal Identification - Preliminary Regine albicans 06/06/24 09:50 Bronchial Washings Gram Stain - Final 06/06/24 09:50 Bronchial Washings Routine Culture - Final Corynebacterium species 06/02/24 11:00 Bronchial Washings Gram Stain - Final 06/02/24 11:00 Bronchial Washings Routine Culture - Final Staphylococcus aureus 05/29/24 12:41 Blood - Venous Blood Culture - Final No growth after 5 days. 05/29/24 12:41 Blood - Venous Blood Culture - Final No growth after 5 days. 05/29/24 Unknown Urine Catheterized - [place] Catheter Urine Culture - Final Pseudomonas aeruginosa Providencia rettgeri Progress Note: A&P Assessment and plan (1) Cardiac arrest: Status: Acute (2) Acute kidney injury: Status: Acute (3) Chronic osteomyelitis with draining sinus, other site: Status: Acute (4) Acute confusion: Status: Acute (5) Acute hypoxemic respiratory failure: Status: Acute (6) Aspiration, chronic pulmonary: Status: Acute Plan 68-year-old gentleman with a PMH of paroxysmal AFib on Eliquis, paraplegia secondary to spinal cord injury, neurogenic bladder with chronic suprapubic catheter in place, recurrent UTIs, colostomy, pacemaker in place, hypothyroidism, chronic pain syndrome, and sacral decubitus ulcer admitted to the hospital on 05/29/2024 for the management of pneumonia. Chest x-ray and CT chest upon admission showed right middle and lower lobe collapse so he underwent bronch on 06/02. xray 06/05 show right complete opacity and had another brochoscopy with lavage on 06/06 he was noted to have significant purulent secretions coming out from the right lung more than the left lung that was lavaged during the bronchoscopy. Bronchoscopic lavage was polymicrobial including staph and Corynebacterium so his antibiotics were appropriately adjusted. On the morning of 06/08/2024 patient went into cardiac arrest, total down time of about 8 minutes before ask, intubated and on ventilator support so transferred to medical ICU. Patient was given trial of extubation on 06/11/2024, could lost only about 12 hours before he had a large pool of secretions in his throat and almost went into respiratory arrest Neuro: Acute encephalopathy possibly due to metabolic encephalopathy On propofol for sedation, as needed for analgesia Pending MRI brain to look for any hypoxic injury, planned for today once the tech for [place] is here. Close neurological status monitoring in the ICU every hour Cardiac: Cardiogenic Shock: Possibly secondary to cardiac arrest On low-dose Levophed support, titrate Levophed to keep map above 65 mm Hg Cardiac arrest: Possibly secondary to airway obstruction from thickened secretions Downtime of about 6-8 minutes completed cooling protocol CTA chest showed distal pulmonary artery filling defects which might be chronic, there was no clots seen in the central pulmonary artery so this is possibly unlikely to be the cause of cardiac arrest. Respiratory: Acute hypoxemic respiratory failure due to aspiration pneumonia Currently on ventilator support On PRVC mode FiO2 down to 30%, PEEP 10, TV 500, RR 20 Peak pressures and plateau pressures are under the curve Ventilator managent bundle with head end elevation, aspiration precaution, chlorhexidine mouthwash, daily awakening trials, daily spontaneous breathing trials Family refused to consent for tracheostomy, wanted him to make the decision; so a trial of extubation was given. Reintubated as the patient was unable to clear oropharyngeal secretion and had very poor mental status. I would be uncomfortable extubating him him again unless his mentation is completely normal with no secretions or he gets trach. Currently he still has significant secretions and conducted sounds GI: on tube feeds Renal: Creatinine normal 0.59 We will closely monitor I's and O's Avoid nephrotoxic medications on lasix q12h, fluid balance net negative 1.1 L, continue the same diuresis Heme: Chronic anemia, closely monitor H&H, transfuse for hemoglobin less than 7 grams/deciliter Endocrine: Blood sugars under control Sliding scale insulin as needed Hypothyroidism: on levothyroxine Infectious disease: Sputum cultures positive for MSSA and Citrobacter, repeat sputum culture positive for MRSA- added vancomycin Urine cultures positive for Pseudomonas and providencia On doxycycline and cefepime for antibiotic coverage Musculoskeletal: Decubitus ulcer prevention protocol stage 3 in coccyx, wound care consulted multiple chronic pressure injury Lines: Left IJ TLC Prophylaxis: Lovenox pantoprazole Quality Stroke Does the patient have a stroke diagnosis?: No VTE Prior VTE?: No VTE Risk Level:: Medical - moderate - high VTE Device Contraindication: Treatment Not Indicated VTE Drug Contraindication: N/A - Med Ordered
[2024-06-14] MEDS: vancomycin HCL 1,000 MG in 0.9 % Sodium Chloride 250 ML 270 MG IV ×2 (10:06→23:15)
[2024-06-14] MEDS: dexmedeTOMIDidine HCL/NS 400 MCG/100 ML INFUS..BTL 34.7 MCG IVCONT (10:50)
--- NOTE | 2024-06-14 11:32 | MHC.CM.PN ---
EMR REVIEWED, PT REMAINS VENTED AND W/PROPOFOL, PLAN FOR MRI TODAY AND POSSIBLE PEG TUBE PLACEMENT PENDING RESULTS, [facility] [place] CM WILL CONT TO FOLLOW DC NEEDS.
--- NOTE | 2024-06-14 11:35 | MHC.CLN ---
F/U PT REMAINS INTUBATED AND SEDATED DISCUSSED AT ROUNDS WITH MD CONTINUE PROMOTE AT MAX GOAL RATE 65ML/HR WITH 30ML PROSOURCE BID WITH 240ML FREE WATER FLUSHES Q 4 HRS PROVIDES 1680KCALS (2717TOTAL KCALS WITH SEDATION; 29.5 KCALS/KG BASED ON IBW), 127.5G PROTEIN (1.4G/KG), 2749ML TOTAL WATER FROM FORMULA AND FLUSHES (30ML/KG); TF WILL PROMOTE WOUND HEALING CONTINUE TO MONITOR TOLERANCE AND LYTES
[2024-06-14] MEDS: fentaNYL citrate/NS 1,000 MCG/100 ML PLAST..BAG 20 MCG IVCONT ×2 (11:36→16:50)
[2024-06-14] MEDS: dexmedeTOMIDidine HCL/NS 400 MCG/100 ML INFUS..BTL 41.64 MCG IVCONT ×2 (12:00→14:25)
[2024-06-14] MEDS: cefEPime HCl 1 GM in 0.9 % Sodium Chloride 50 ML IV (13:52)
[2024-06-14] MEDS: Enoxaparin Sodium 100 MG/ML SYRINGE SUBCUT ×2 (13:52→23:59)
[2024-06-14 21:49] LABS: Vancomycin Random 17.2 mcg/mL (15-20)
--- NOTE | 2024-06-14 21:59 | HE.PHANOTE ---
vanco dose adjustment based on scr and trough of 17.2 dose continued at 100 q 12h. next level 06/16 @ 0900
[2024-06-14] MEDS: Norepinephrine Bitartrate/D5W 8 MG/250 ML PLAST..BAG 17.18 MG IVCONT (22:01)
[2024-06-14] MEDS: fentaNYL citrate/NS 1,000 MCG/100 ML PLAST..BAG 15 MCG IVCONT (22:02)
[2024-06-15] VITALS (36 sets, daily range): BP systolic 90–143; BP diastolic 26–81; PULSE 60–65; RESP 13–15; TEMP 34.4–38.2; O2SAT 94–99; BMI 33.3
[2024-06-15] MEDS: propofoL 1,000 MG/100 ML VIAL 31.44 MG IVCONT ×4 (00:51→21:00)
[2024-06-15] MEDS: fentaNYL citrate/NS 1,000 MCG/100 ML PLAST..BAG 10 MCG IVCONT ×2 (04:44→15:11)
[2024-06-15 04:53] LABS: VBG Base Excess 18.3 mmol/L; VBG HCO3 43 mmol/L (22-26); VBG pCO2 53 mmHg; VBG pH 7.52 (7.32-7.43); VBG pO2 61 mmHg
[2024-06-15 04:54] LABS: Venous Blood Gas Refer to POC result
[2024-06-15 05:34] LABS: Basophils Percent Auto 0.4 % (0-2); Eosinophils Absolute Auto 0.3 X10*3/uL (0.0-0.4); Eosinophils Percent Auto 4.4 % (0-4); Hemoglobin 10.9 g/dl (14.0-18.0); Imm Gran Abs Auto 0.08 X10*3/uL (0.00-0.03); Imm Gran Pct Auto 1.1 % (0.0-0.4); Lymphocytes Absolute Auto 1.8 X10*3/uL (1.2-4.9); Lymphocytes Percent Auto 24.5 % (20-40); MANUAL DIFF FLAG NO; Mean Corpuscular HGB Conc 31.1 g/dl (31.0-36.0); Mean Platelet Volume 9.4 fL (9.4-12.4); Monocytes Absolute Auto 0.8 X10*3/uL (0.1-1.2); Monocytes Percent Auto 10.7 % (2-11); Neutrophils Absolute Auto 4.4 x10*3/uL (2.0-8.3); Neutrophils Percent Auto 58.9 % (45-73); Platelet Count 242 X10*3/uL (160-400); Red Blood Count 3.89 X10*6/uL (4.60-5.80); Red Cell Distribution Width 17.7 % (11.0-16.0); White Blood Count 7.5 X10*3/uL (4.8-10.8)
[2024-06-15] MEDS: Levothyroxine Sodium 25 MCG TABLET PO (05:52)
[2024-06-15 05:53] LABS: Albumin Level 3.5 g/dL (3.5-5.0); Anion Gap 13 (12-20); Blood Urea Nitrogen 15 mg/dL (9-16); Calcium 7.5 mg/dL (8.4-10.2); Carbon Dioxide 35 mmol/L (22-29); Chloride 96 mmol/L (96-108); Creatinine Clr Calc Pharmacy 161.7; Estimated Glomerular Filt Rate > 60; Glucose Random 133 mg/dL (60-115); Magnesium 1.9 mg/dL (1.6-2.6); Phosphorus 2.8 mg/dL (2.7-4.5); Potassium 3.5 mmol/L (3.3-5.1); Sodium 140 mmol/L (135-145)
[2024-06-15] MEDS: Levothyroxine Sodium 112 MCG TABLET PO (05:53)
[2024-06-15] MEDS: Calcium Chloride 1 GM/10 ML SYRINGE IVPUSH (06:19)
[2024-06-15] MEDS: Acetylcysteine 10 % 400 MG/4 ML VIAL INHALE ×2 (08:04→19:41)
[2024-06-15] MEDS: Furosemide 40 MG/4 ML VIAL IVPUSH ×2 (08:29→22:14)
[2024-06-15] MEDS: Chlorhexidine Gluc Oral Rinse 15 ML MOUTHWASH BUCCAL ×3 (08:29→22:14)
[2024-06-15] MEDS: propofoL 1,000 MG/100 ML VIAL 39.3 MG IVCONT ×6 (08:38→23:50)
--- NOTE | 2024-06-15 10:46 | P.PNCC_ITS ---
Subjective Subjective Date of Service: 06/15/24 Critical Care Time (minutes): 35 Comment: Continues to be unresponsive, on the ventilator support No new events overnight Physical Exam 2 Vital Signs: Vital Signs: Last Vital Signs Temp 100.4 F 06/15/24 09:00 Pulse 60 06/15/24 09:00 Resp 14 06/15/24 09:00 BP 118/67 06/15/24 09:00 Pulse Ox 97 06/15/24 09:00 O2 Del Method Mechanical Ventil ation 06/15/24 09:00 O2 Flow Rate 6 06/12/24 01:00 FiO2 50 06/15/24 09:00 Oxygen Flow Rate 5 06/07/24 09:00 BMI result Body Mass Index 33.3 General: Elderly male, chronically ill appearing and tired appearing Nutritional Appearance: well nourished and overweight Eyes: appearance normal, both eyes and all related structures; Alignment and Position: alignment normal and position normal Neck: No lymphadenopathy, no thyromegaly Resp: bilateral air entry equal, bilateral crackles heard Cardio: Regular rate, regular rhythm; Heart sounds: S1 normal heart sound present and S2 normal heart sound present GI: soft, nontender, no guarding, no hepatosplenomegaly : bladder normal to inspection, bladder normal to palpation, no renal angle tenderness Skin: no rashes or lesions noted and elasticity normal Neuro: Unable to perform a neuro exam as he is sedated Objective Data Labs 06/15/24 04:47 06/15/24 04:47 Labs: Laboratory Results - last 24 hr 06/14/24 06/15/24 06/15/24 21:07 04:42 04:47 WBC 7.5 RBC 3.89 L Hgb 10.9 L Hct 35.0 L MCV 90.0 MCH 28.0 MCHC 31.1 RDW 17.7 H Plt Count 242 MPV 9.4 Immature Gran % (Auto) 1.1 H Neut % (Auto) 58.9 Lymph % (Auto) 24.5 [place] % (Auto) 10.7 Eos % (Auto) 4.4 H Baso % (Auto) 0.4 Lymph # (Auto) 1.8 [place] # (Auto) 0.8 Eos # (Auto) 0.3 Baso # (Auto) 0.0 Abs Immat Gran (auto) 0.08 H Absolute Neuts (auto) 4.4 Absolute Nucleated RBC 0.000 Nucleated RBC % (auto) 0.0 VBG pH 7.52 H VBG pCO2 53 VBG pO2 61 VBG HCO3 43 H VBG O2 Saturation 90.0 VBG Base Excess 18.3 Sodium 140 Potassium 3.5 Chloride 96 Carbon Dioxide 35 H Anion Gap 13 BUN 15 Creatinine 0.64 Estim Creat Clear Calc 161.7 Estimated GFR > 60 Random Glucose 133 H Calcium 7.5 L Phosphorus 2.8 Magnesium 1.9 Albumin 3.5 Random Vancomycin 17.2 Microbiology Microbiology Results: Microbiology 06/08/24 04:35 Sputum - Suctioned Gram Stain - Final 06/08/24 04:35 Sputum - Suctioned Sputum Culture - Final Methicillin Res Staph Aureus 06/06/24 09:50 Bronchial Washings Fungal Identification - Preliminary Regine albicans 06/06/24 09:50 Bronchial Washings Gram Stain - Final 06/06/24 09:50 Bronchial Washings Routine Culture - Final Corynebacterium species 06/02/24 11:00 Bronchial Washings Gram Stain - Final 06/02/24 11:00 Bronchial Washings Routine Culture - Final Staphylococcus aureus 05/29/24 12:41 Blood - Venous Blood Culture - Final No growth after 5 days. 05/29/24 12:41 Blood - Venous Blood Culture - Final No growth after 5 days. 05/29/24 Unknown Urine Catheterized - [place] Catheter Urine Culture - Final Pseudomonas aeruginosa Providencia rettgeri Progress Note: A&P Assessment and plan (1) Cardiac arrest: Status: Acute (2) Acute kidney injury: Status: Acute (3) Pulmonary atelectasis: Status: Acute (4) Acute hypoxemic respiratory failure: Status: Acute (5) Aspiration, chronic pulmonary: Status: Acute Plan 68-year-old gentleman with a PMH of paroxysmal AFib on Eliquis, paraplegia secondary to spinal cord injury, neurogenic bladder with chronic suprapubic catheter in place, recurrent UTIs, colostomy, pacemaker in place, hypothyroidism, chronic pain syndrome, and sacral decubitus ulcer admitted to the hospital on 05/29/2024 for the management of pneumonia. Chest x-ray and CT chest upon admission showed right middle and lower lobe collapse so he underwent bronch on 06/02. xray 06/05 show right complete opacity and had another brochoscopy with lavage on 06/06 he was noted to have significant purulent secretions coming out from the right lung more than the left lung that was lavaged during the bronchoscopy. Bronchoscopic lavage was polymicrobial including staph and Corynebacterium so his antibiotics were appropriately adjusted. On the morning of 06/08/2024 patient went into cardiac arrest, total down time of about 8 minutes before ask, intubated and on ventilator support so transferred to medical ICU. Patient was given trial of extubation on 06/11/2024, could lost only about 12 hours before he had a large pool of secretions in his throat and almost went into respiratory arrest Neuro: Acute encephalopathy possibly due to metabolic encephalopathy On propofol for sedation, fentanyl for analgesia MRI of the brain done yesterday to look for any evidence of hypoxic ischemic injury, pending results Close neurological status monitoring in the ICU every hour Cardiac: Cardiogenic Shock: Possibly secondary to cardiac arrest On low-dose Levophed support, titrate Levophed to keep map above 65 mm Hg Cardiac arrest: Possibly secondary to airway obstruction from thickened secretions Downtime of about 6-8 minutes completed cooling protocol CTA chest showed distal pulmonary artery filling defects which might be chronic, there was no clots seen in the central pulmonary artery so this is possibly unlikely to be the cause of cardiac arrest. Respiratory: Acute hypoxemic respiratory failure due to aspiration pneumonia Currently on ventilator support On PRVC mode FiO2 40%, PEEP 10, TV 500, RR 20 Peak pressures and plateau pressures are under the curve Ventilator managent bundle with head end elevation, aspiration precaution, chlorhexidine mouthwash, daily awakening trials, daily spontaneous breathing trials Family refused to consent for tracheostomy, wanted him to make the decision; so a trial of extubation was given. Reintubated as the patient was unable to clear oropharyngeal secretion and had very poor mental status. I would be uncomfortable extubating him him again unless his mentation is completely normal with no secretions or he gets trach. Currently he still has significant secretions and conducted sounds GI: on tube feeds Renal: Creatinine normal 0.59 We will closely monitor I's and O's Avoid nephrotoxic medications on lasix q12h, fluid balance net positive 1.6 L L, continue the same diuresis Heme: Chronic anemia, closely monitor H&H, transfuse for hemoglobin less than 7 grams/deciliter Endocrine: Blood sugars under control Sliding scale insulin as needed Hypothyroidism: on levothyroxine Infectious disease: Sputum cultures positive for MSSA and Citrobacter, repeat sputum culture positive for MRSA Urine cultures positive for Pseudomonas and providencia On vancomycin, doxycycline and cefepime for antibiotic coverage Musculoskeletal: Decubitus ulcer prevention protocol stage 3 in coccyx, wound care consulted multiple chronic pressure injury Lines: Left IJ TLC Prophylaxis: Lovenox pantoprazole Quality Stroke Does the patient have a stroke diagnosis?: No VTE Prior VTE?: No VTE Risk Level:: Medical - moderate - high VTE Device Contraindication: Treatment Not Indicated VTE Drug Contraindication: N/A - Med Ordered
[2024-06-15] MEDS: vancomycin HCL 1,000 MG in 0.9 % Sodium Chloride 250 ML 270 MG IV ×2 (11:42→23:13)
[2024-06-15] MEDS: cefEPime HCl 1 GM in 0.9 % Sodium Chloride 50 ML IV ×3 (11:47→23:49)
[2024-06-15] MEDS: Enoxaparin Sodium 100 MG/ML SYRINGE SUBCUT ×2 (11:49→23:50)
[2024-06-15] MEDS: Norepinephrine Bitartrate/D5W 8 MG/250 ML PLAST..BAG 12.27 MG IVCONT (15:12)
[2024-06-15] MEDS: Albuterol Sulfate (0.083%) 2.5 MG/3 ML VIAL.NEB INHALE (19:41)
--- NOTE | 2024-06-15 20:12 | W.MHC.ACPN ---
Advanced Care Planning Note Advanced Care Planning Note Discussed with: family member(s) Time spent (in minutes): 15 Narrative: The patient's HCP, his brother Moses, notified of MRI results. All questions comments and concerns addressed. He will discuss findings with family to decide on goals of care. Problems Discussed (1) Cardiac arrest: (2) Acute kidney injury: (3) Pulmonary atelectasis: (4) Acute hypoxemic respiratory failure: (5) Aspiration, chronic pulmonary:
[2024-06-15] MEDS: 0.9 % Sodium Chloride Flush 3 ML SYRINGE IVFLUSH (23:14)
[2024-06-15] MEDS: 0.9 % Sodium Chloride Flush 10 ML SYRINGE IVFLUSH (23:50)
[2024-06-16] VITALS (39 sets, daily range): BP systolic 85–153; BP diastolic 41–85; PULSE 60–91; RESP 12–16; TEMP 34.6–38.2; O2SAT 90–96; BMI 33.5
[2024-06-16] MEDS: fentaNYL citrate/NS 1,000 MCG/100 ML PLAST..BAG 10 MCG IVCONT ×3 (01:03→21:58)
[2024-06-16] MEDS: propofoL 1,000 MG/100 ML VIAL 39.3 MG IVCONT ×2 (02:02→04:37)
[2024-06-16] MEDS: Norepinephrine Bitartrate/D5W 8 MG/250 ML PLAST..BAG 17.18 MG IVCONT ×2 (03:48→19:16)
[2024-06-16 04:45] LABS: VBG HCO3 45 mmol/L (22-26); VBG pCO2 56 mmHg; VBG pH 7.51 (7.32-7.43); VBG pO2 58 mmHg
[2024-06-16 05:22] LABS: Basophils Absolute Auto 0.1 X10*3/uL (0.0-0.2); Basophils Percent Auto 0.7 % (0-2); Eosinophils Absolute Auto 0.5 X10*3/uL (0.0-0.4); Eosinophils Percent Auto 5.5 % (0-4); Hematocrit 35.4 % (42.0-52.0); Hemoglobin 10.9 g/dl (14.0-18.0); Imm Gran Abs Auto 0.13 X10*3/uL (0.00-0.03); Imm Gran Pct Auto 1.5 % (0.0-0.4); Lymphocytes Absolute Auto 2.2 X10*3/uL (1.2-4.9); Lymphocytes Percent Auto 25.6 % (20-40); MANUAL DIFF FLAG NO; Mean Corpuscular HGB Conc 30.8 g/dl (31.0-36.0); Mean Corpuscular Hemoglobin 27.8 pg (27.0-33.0); Mean Corpuscular Volume 90.3 fL (80.0-98.0); Mean Platelet Volume 9.6 fL (9.4-12.4); Monocytes Absolute Auto 0.9 X10*3/uL (0.1-1.2); Monocytes Percent Auto 10.2 % (2-11); Neutrophils Absolute Auto 4.9 x10*3/uL (2.0-8.3); Neutrophils Percent Auto 56.5 % (45-73); Platelet Count 285 X10*3/uL (160-400); Red Blood Count 3.92 X10*6/uL (4.60-5.80); Red Cell Distribution Width 17.7 % (11.0-16.0); White Blood Count 8.7 X10*3/uL (4.8-10.8)
[2024-06-16 05:39] LABS: Creatinine Clr Calc Pharmacy 163.6; Estimated Glomerular Filt Rate > 60
[2024-06-16 05:40] LABS: Albumin Level 3.5 g/dL (3.5-5.0); Anion Gap 14 (12-20); Blood Urea Nitrogen 16 mg/dL (9-16); Calcium 7.8 mg/dL (8.4-10.2); Carbon Dioxide 34 mmol/L (22-29); Chloride 96 mmol/L (96-108); Creatinine Clr Calc Pharmacy 163.6; Estimated Glomerular Filt Rate > 60; Glucose Random 155 mg/dL (60-115); Magnesium 1.9 mg/dL (1.6-2.6); Phosphorus 2.6 mg/dL (2.7-4.5); Potassium 3.1 mmol/L (3.3-5.1); Sodium 141 mmol/L (135-145)
[2024-06-16] MEDS: Levothyroxine Sodium 25 MCG TABLET PO (06:05)
[2024-06-16] MEDS: Potassium Chloride/H20 40 MEQ/100 ML PIGGYBACK 50 MEQ IV (06:05)
[2024-06-16] MEDS: Levothyroxine Sodium 112 MCG TABLET PO (06:05)
[2024-06-16] MEDS: propofoL 1,000 MG/100 ML VIAL 31.44 MG IVCONT ×6 (06:36→22:07)
[2024-06-16] MEDS: Acetylcysteine 10 % 400 MG/4 ML VIAL INHALE ×2 (07:45→20:34)
[2024-06-16] MEDS: 0.9 % Sodium Chloride Flush 3 ML SYRINGE IVFLUSH ×2 (08:34→23:09)
[2024-06-16] MEDS: Furosemide 40 MG/4 ML VIAL IVPUSH ×2 (08:34→20:32)
[2024-06-16] MEDS: Potassium Phosphate/NS 15 MMOL/250 ML PLAST..BAG 62.5 MMOL IV (08:35)
[2024-06-16] MEDS: Chlorhexidine Gluc Oral Rinse 15 ML MOUTHWASH BUCCAL ×3 (08:35→20:32)
[2024-06-16 09:34] LABS: Vancomycin Trough 17.9 mcg/mL (10.0-20.0)
[2024-06-16] MEDS: vancomycin HCL 1,000 MG in 0.9 % Sodium Chloride 250 ML 270 MG IV ×2 (10:05→22:19)
--- NOTE | 2024-06-16 11:36 | MHC.CM.PN ---
Pt continues to be intubated in ICU: MRI did not support anoxic brain injury - pt with lack of neuro response despite sedation weaning. Family to discuss goals of care including proceeding with peg/trach vs [employer] CLERK. Pt has been referred to [facility] in the event peg/trach are chosen. Pt from a [facility] long-term. CM to follow
--- NOTE | 2024-06-16 11:43 | PM.CCPN ---
Subjective Subjective Date of Service: 06/16/24 Critical Care Time (minutes): 35 Comment: Continues to be on ventilator support, has significant oral secretions and some In line secretions to Physical Exam Vital Signs: Vital Signs: Last Vital Signs Temp 98.8 F 06/16/24 11:00 Pulse 60 06/16/24 11:00 Resp 16 06/16/24 11:00 BP 102/57 L 06/16/24 11:00 Pulse Ox 96 06/16/24 11:00 O2 Del Method Mechanical Ventil ation 06/16/24 11:00 O2 Flow Rate 6 06/12/24 01:00 FiO2 40 06/16/24 11:31 Oxygen Flow Rate 5 06/07/24 09:00 BMI result Body Mass Index 33.5 General: acute distress, ill appearing and tired appearing Nutritional Appearance: well nourished and overweight Eyes: appearance normal, both eyes and all related structures; Alignment and Position: alignment normal and position normal Neck: No lymphadenopathy, no thyromegaly Resp: bilateral air entry equal, crackles heard in both lungs Cardio: Regular rate, regular rhythm; Heart sounds: S1 normal heart sound present and S2 normal heart sound present GI: soft, nontender, no guarding, no hepatosplenomegaly : bladder normal to inspection, bladder normal to palpation, no renal angle tenderness Skin: no rashes or lesions noted and elasticity normal Neuro: Unable to obtain as patient is sedated Objective Data Labs 06/16/24 04:38 06/16/24 04:38 Labs: Laboratory Results - last 24 hr 06/16/24 06/16/24 06/16/24 04:34 04:38 04:38 WBC 8.7 RBC 3.92 L Hgb 10.9 L Hct 35.4 L MCV 90.3 MCH 27.8 MCHC 30.8 L RDW 17.7 H Plt Count 285 MPV 9.6 Immature Gran % (Auto) 1.5 H Neut % (Auto) 56.5 Lymph % (Auto) 25.6 [place] % (Auto) 10.2 Eos % (Auto) 5.5 H Baso % (Auto) 0.7 Lymph # (Auto) 2.2 [place] # (Auto) 0.9 Eos # (Auto) 0.5 H Baso # (Auto) 0.1 Abs Immat Gran (auto) 0.13 H Absolute Neuts (auto) 4.9 Absolute Nucleated RBC 0.000 Nucleated RBC % (auto) 0.0 VBG pH 7.51 H VBG pCO2 56 VBG pO2 58 VBG HCO3 45 H VBG O2 Saturation 87.0 VBG Base Excess 19.0 Sodium 141 Potassium 3.1 L Chloride 96 Carbon Dioxide 34 H Anion Gap 14 BUN 16 Creatinine 0.63 0.63 Estim Creat Clear Calc 163.6 Estimated GFR Random Glucose Calcium Phosphorus Magnesium Albumin Vancomycin Trough 06/16/24 06/16/24 06/16/24 04:38 04:38 09:10 WBC RBC Hgb Hct MCV MCH MCHC RDW Plt Count MPV Immature Gran % (Auto) Neut % (Auto) Lymph % (Auto) [place] % (Auto) Eos % (Auto) Baso % (Auto) Lymph # (Auto) [place] # (Auto) Eos # (Auto) Baso # (Auto) Abs Immat Gran (auto) Absolute Neuts (auto) Absolute Nucleated RBC Nucleated RBC % (auto) VBG pH VBG pCO2 VBG pO2 VBG HCO3 VBG O2 Saturation VBG Base Excess Sodium Potassium Chloride Carbon Dioxide Anion Gap BUN Creatinine Estim Creat Clear Calc 163.6 Estimated GFR > 60 > 60 Random Glucose 155 H Calcium 7.8 L Phosphorus 2.6 L Magnesium 1.9 Albumin 3.5 Vancomycin Trough 17.9 Microbiology Microbiology Results: Microbiology 06/08/24 04:35 Sputum - Suctioned Gram Stain - Final 06/08/24 04:35 Sputum - Suctioned Sputum Culture - Final Methicillin Res Staph Aureus 06/06/24 09:50 Bronchial Washings Fungal Identification - Preliminary Regine albicans 06/06/24 09:50 Bronchial Washings Gram Stain - Final 06/06/24 09:50 Bronchial Washings Routine Culture - Final Corynebacterium species 06/02/24 11:00 Bronchial Washings Gram Stain - Final 06/02/24 11:00 Bronchial Washings Routine Culture - Final Staphylococcus aureus 05/29/24 12:41 Blood - Venous Blood Culture - Final No growth after 5 days. 05/29/24 12:41 Blood - Venous Blood Culture - Final No growth after 5 days. 05/29/24 Unknown Urine Catheterized - [place] Catheter Urine Culture - Final Pseudomonas aeruginosa Providencia rettgeri Progress Note: A&P Assessment and plan (1) Cardiac arrest: Status: Acute (2) Acute kidney injury: Status: Acute (3) Chronic osteomyelitis with draining sinus, other site: Status: Acute (4) Rotator cuff tear, right: Status: Acute (5) Acute confusion: Status: Acute (6) Spinal cord injury: Status: Acute (7) Aspiration, chronic pulmonary: Status: Acute (8) Acute hypoxemic respiratory failure: Status: Acute (9) Pneumonia: Status: Acute Plan 68-year-old gentleman with a PMH of paroxysmal AFib on Eliquis, paraplegia secondary to spinal cord injury, neurogenic bladder with chronic suprapubic catheter in place, recurrent UTIs, colostomy, pacemaker in place, hypothyroidism, chronic pain syndrome, and sacral decubitus ulcer admitted to the hospital on 05/29/2024 for the management of pneumonia. Chest x-ray and CT chest upon admission showed right middle and lower lobe collapse so he underwent bronch on 06/02. xray 06/05 show right complete opacity and had another brochoscopy with lavage on 06/06 he was noted to have significant purulent secretions coming out from the right lung more than the left lung that was lavaged during the bronchoscopy. Bronchoscopic lavage was polymicrobial including staph and Corynebacterium so his antibiotics were appropriately adjusted. On the morning of 06/08/2024 patient went into cardiac arrest, total down time of about 8 minutes before ask, intubated and on ventilator support so transferred to medical ICU. Patient was given trial of extubation on 06/11/2024, could last only about 12 hours before he had a large pool of secretions in his throat and almost went into respiratory arrest. We are waiting on the family to make the decisions for trach given his inability to clear secretions due to spinal cord injury. Neuro: Acute encephalopathy possibly due to metabolic encephalopathy On propofol for sedation, fentanyl for analgesia MRI of the brain did not show any evidence of hypoxic ischemic injury, normal reading Close neurological status monitoring in the ICU every hour Cardiac: Cardiogenic Shock: Possibly secondary to cardiac arrest On low-dose Levophed support, titrate Levophed to keep map above 65 mm Hg Cardiac arrest: Possibly secondary to airway obstruction from thickened secretions Downtime of about 6-8 minutes completed cooling protocol CTA chest showed distal pulmonary artery filling defects which might be chronic, there was no clots seen in the central pulmonary artery so this is possibly unlikely to be the cause of cardiac arrest. Respiratory: Acute hypoxemic respiratory failure due to aspiration pneumonia Currently on ventilator support On PRVC mode FiO2 50%, PEEP 10 we will decrease the PEEP to 8 and later 5, TV 500, RR 20 Peak pressures and plateau pressures are under the curve Ventilator managent bundle with head end elevation, aspiration precaution, chlorhexidine mouthwash, daily awakening trials, daily spontaneous breathing trials Family refused to consent for tracheostomy, wanted him to make the decision; so a trial of extubation was given. Reintubated as the patient was unable to clear oropharyngeal secretion and had very poor mental status. I would be uncomfortable extubating him him again unless his mentation is completely normal with no secretions or he gets trach. Currently he still has significant secretions and conducted sounds GI: on tube feeds Renal: Creatinine normal 0.59 We will closely monitor I's and O's Avoid nephrotoxic medications on lasix q12h, fluid balance net positive 1400 cc due to high fluid input Heme: Chronic anemia, closely monitor H&H, transfuse for hemoglobin less than 7 grams/deciliter Endocrine: Blood sugars under control Sliding scale insulin as needed Hypothyroidism: on levothyroxine Infectious disease: Sputum cultures positive for MSSA and Citrobacter, repeat sputum culture positive for MRSA Urine cultures positive for Pseudomonas and providencia On vancomycin, doxycycline and cefepime for antibiotic coverage Musculoskeletal: Decubitus ulcer prevention protocol stage 3 in coccyx, wound care consulted multiple chronic pressure injury Lines: Left IJ TLC Prophylaxis: Lovenox pantoprazole Quality Stroke Does the patient have a stroke diagnosis?: No VTE Prior VTE?: No VTE Risk Level:: Medical - moderate - high VTE Device Contraindication: Treatment Not Indicated VTE Drug Contraindication: N/A - Med Ordered
[2024-06-16] MEDS: Enoxaparin Sodium 100 MG/ML SYRINGE SUBCUT ×2 (11:45→23:09)
[2024-06-16] MEDS: cefEPime HCl 1 GM in 0.9 % Sodium Chloride 50 ML IV ×2 (11:45→23:08)
[2024-06-16 13:18] LABS: Venous Blood Gas Refer to POC result
[2024-06-16] MEDS: Albuterol Sulfate (0.083%) 2.5 MG/3 ML VIAL.NEB INHALE (20:34)
[2024-06-17] VITALS (43 sets, daily range): BP systolic 66–167; BP diastolic 23–80; PULSE 60–78; RESP 12–20; TEMP 34.2–38.4; O2SAT 85–97; BMI 33.3
[2024-06-17] MEDS: propofoL 1,000 MG/100 ML VIAL 31.44 MG IVCONT ×3 (00:40→06:23)
[2024-06-17] MEDS: Albuterol Sulfate (0.083%) 2.5 MG/3 ML VIAL.NEB INHALE ×3 (03:36→20:18)
[2024-06-17] MEDS: Levothyroxine Sodium 25 MCG TABLET PO (05:07)
[2024-06-17] MEDS: Levothyroxine Sodium 112 MCG TABLET PO (05:07)
[2024-06-17 05:39] LABS: VBG Base Excess 18.3 mmol/L; VBG HCO3 42 mmol/L (22-26); VBG pCO2 47 mmHg; VBG pH 7.56 (7.32-7.43); VBG pO2 36 mmHg
[2024-06-17 05:43] LABS: Venous Blood Gas Refer to POC result
[2024-06-17 05:48] LABS: MANUAL DIFF FLAG NO
[2024-06-17 05:57] LABS: Basophils Absolute Auto 0.1 X10*3/uL (0.0-0.2); Basophils Percent Auto 0.6 % (0-2); Eosinophils Absolute Auto 0.4 X10*3/uL (0.0-0.4); Eosinophils Percent Auto 4.9 % (0-4); Hematocrit 33.2 % (42.0-52.0); Hemoglobin 10.5 g/dl (14.0-18.0); Imm Gran Abs Auto 0.14 X10*3/uL (0.00-0.03); Imm Gran Pct Auto 1.6 % (0.0-0.4); Lymphocytes Absolute Auto 2.6 X10*3/uL (1.2-4.9); Lymphocytes Percent Auto 30.2 % (20-40); Mean Corpuscular HGB Conc 31.6 g/dl (31.0-36.0); Mean Corpuscular Hemoglobin 28.4 pg (27.0-33.0); Mean Corpuscular Volume 89.7 fL (80.0-98.0); Mean Platelet Volume 9.4 fL (9.4-12.4); Monocytes Absolute Auto 0.7 X10*3/uL (0.1-1.2); Neutrophils Absolute Auto 4.7 x10*3/uL (2.0-8.3); Neutrophils Percent Auto 54.7 % (45-73); Platelet Count 293 X10*3/uL (160-400); Red Cell Distribution Width 17.5 % (11.0-16.0); White Blood Count 8.6 X10*3/uL (4.8-10.8)
[2024-06-17 06:11] LABS: Alanine Aminotransferase 26 U/L (0-40); Albumin Level 3.4 g/dL (3.5-5.0); Alkaline Phosphatase 77 U/L (39-117); Anion Gap 15 (12-20); Aspartate Amino Transferase 27 U/L (5-37); Bilirubin Total 0.3 mg/dL (0.0-1.0); Blood Urea Nitrogen 16 mg/dL (9-16); Calcium 7.6 mg/dL (8.4-10.2); Carbon Dioxide 31 mmol/L (22-29); Chloride 97 mmol/L (96-108); Creatinine Clr Calc Pharmacy 163.6; Estimated Glomerular Filt Rate > 60; Glucose Random 172 mg/dL (60-115); Magnesium 1.9 mg/dL (1.6-2.6); Phosphorus 2.3 mg/dL (2.7-4.5); Potassium 3.7 mmol/L (3.3-5.1); Sodium 139 mmol/L (135-145); Total Protein 6.9 g/dL (6.5-8.0)
[2024-06-17] MEDS: Calcium Chloride 1 GM/10 ML SYRINGE IVPUSH (06:23)
[2024-06-17] MEDS: Acetylcysteine 10 % 400 MG/4 ML VIAL INHALE ×2 (07:43→20:18)
[2024-06-17] MEDS: Furosemide 40 MG/4 ML VIAL IVPUSH ×2 (08:02→17:51)
[2024-06-17] MEDS: 0.9 % Sodium Chloride Flush 3 ML SYRINGE IVFLUSH ×2 (08:03→15:04)
[2024-06-17] MEDS: Chlorhexidine Gluc Oral Rinse 15 ML MOUTHWASH BUCCAL ×3 (08:03→20:15)
[2024-06-17] MEDS: Potassium Phosphate/NS 15 MMOL/250 ML PLAST..BAG 62.5 MMOL IV ×2 (08:03→12:24)
--- NOTE | 2024-06-17 09:02 | P.PNCC_ITS ---
Subjective Subjective Date of Service: 06/17/24 Critical Care Time (minutes): 60 Physical Exam 2 Vital Signs: Vital Signs: Last Vital Signs Temp 100.0 F 06/17/24 08:00 Pulse 60 06/17/24 08:00 Resp 18 06/17/24 08:00 BP 121/65 06/17/24 08:00 Pulse Ox 91 L 06/17/24 08:00 O2 Del Method Mechanical Ventil ation 06/17/24 08:00 O2 Flow Rate 40 06/16/24 15:00 FiO2 40 06/17/24 08:00 Oxygen Flow Rate 5 06/07/24 09:00 BMI result Body Mass Index 33.3 Const: Other: intubated, sedated; no appreciable spontaneous movements; opens eyes to verbal stimulus, though does not track General: no acute distress and well developed HEENT: Head: Yes normal to inspection, Yes normocephalic and Yes atraumatic Eyes: General: appearance normal, both eyes and all related structures Neck: Neck: Yes normal visual inspection, Yes full ROM, Yes no meningeal signs, Yes trachea midline and Yes supple Chest: Chest palpation & inspection: normal inspection of the chest Resp: Other: no appreciable rales, rhonchi, wheezing Cardio: Rate: regular rate Rhythm: regular rhythm GI: Other: appreciable ileostomy LLQ w/ formed stool; no appreciable distention; soft, compressible; no appreciable tenderness to palpation throughout Skin: Other: no appreciable lesions on ventral surface Neuro: Other: as described above General: no meningeal signs Extrem: Other: appreciable trace pitting edema to bilateral shins General: Yes normal to inspection, Yes full ROM and Yes capillary refill normal Psych: Other: unable to assess Objective Data Labs 06/17/24 05:25 06/17/24 05:25 Labs: Laboratory Results - last 24 hr 06/16/24 06/17/24 06/17/24 09:10 05:25 05:28 WBC 8.6 RBC 3.70 L Hgb 10.5 L Hct 33.2 L MCV 89.7 MCH 28.4 MCHC 31.6 RDW 17.5 H Plt Count 293 MPV 9.4 Immature Gran % (Auto) 1.6 H Neut % (Auto) 54.7 Lymph % (Auto) 30.2 [place] % (Auto) 8.0 Eos % (Auto) 4.9 H Baso % (Auto) 0.6 Lymph # (Auto) 2.6 [place] # (Auto) 0.7 Eos # (Auto) 0.4 Baso # (Auto) 0.1 Abs Immat Gran (auto) 0.14 H Absolute Neuts (auto) 4.7 Absolute Nucleated RBC 0.000 Nucleated RBC % (auto) 0.0 VBG pH 7.56 H VBG pCO2 47 VBG pO2 36 VBG HCO3 42 H VBG O2 Saturation 60.0 VBG Base Excess 18.3 Sodium 139 Potassium 3.7 Chloride 97 Carbon Dioxide 31 H Anion Gap 15 BUN 16 Creatinine 0.63 Estim Creat Clear Calc 163.6 Estimated GFR > 60 Random Glucose 172 H Calcium 7.6 L Phosphorus 2.3 L Magnesium 1.9 Total Bilirubin 0.3 AST 27 ALT 26 Alkaline Phosphatase 77 Total Protein 6.9 Albumin 3.4 L Vancomycin Trough 17.9 Microbiology Microbiology Results: Microbiology 06/08/24 04:35 Sputum - Suctioned Gram Stain - Final 06/08/24 04:35 Sputum - Suctioned Sputum Culture - Final Methicillin Res Staph Aureus 06/06/24 09:50 Bronchial Washings Fungal Identification - Preliminary Regine albicans 06/06/24 09:50 Bronchial Washings Gram Stain - Final 06/06/24 09:50 Bronchial Washings Routine Culture - Final Corynebacterium species 06/02/24 11:00 Bronchial Washings Gram Stain - Final 06/02/24 11:00 Bronchial Washings Routine Culture - Final Staphylococcus aureus 05/29/24 12:41 Blood - Venous Blood Culture - Final No growth after 5 days. 05/29/24 12:41 Blood - Venous Blood Culture - Final No growth after 5 days. 05/29/24 Unknown Urine Catheterized - [place] Catheter Urine Culture - Final Pseudomonas aeruginosa Providencia rettgeri Progress Note: A&P Assessment and plan (1) Pneumonia: Status: Acute (2) Acute hypoxemic respiratory failure: Status: Acute (3) Cardiac arrest: Status: Acute Plan Patient is a 68 Y M with prior spinal cord injury c/b paraplegia, neurogenic bladder w/ chronic suprapubic catheter c/b recurrent urinary tract infections, colostomy, and sacral decubitus ulcer, paroxysmal atrial fibrillation on apixaban, and hyperthyroidism, [place] w/ pneumonia, admitted medicine; hospital course c/b cardiac arrest on 06/08; ICU course c/b extubation on 06/11, re-intubation d/t persistent encephalopathy N: intubated, sedated w/ propofol, fentanyl gtts, wean as tolerated; encephalopathy, likely toxic-metabolic; MRI 06/17 w/o overt intracranial process CV: hypotension, unclear etiology, norepinephrine gtt, wean as tolerated; of note, patient appears on home midodrine; cardiac arrest on 06/08 R: intubated in setting of cardaic arrest 06/08, extubated 06/11, re-intubated d/t persistent encephalopathy; wean ventilator as tolerated GI: NG tube, tube feeds : no acute issues; to monitor electrolytes, renal indices closely H: no acute issues; paroxysmal atrial fibrillation on apixaban ID: pneumonia, previously on cefepime, to change to zosyn E: to monitor hypo-/hyper-glycemia; hypothyrodism, on home levothyroxine INT: decubitus ulcer; appreciate wound care recommendations P: no acute issues Quality Stroke Does the patient have a stroke diagnosis?: No VTE Prior VTE?: No VTE Risk Level:: Medical - moderate - high VTE Device Contraindication: N/A - Device Ordered VTE Drug Contraindication: N/A - Med Ordered
[2024-06-17] MEDS: fentaNYL citrate/NS 1,000 MCG/100 ML PLAST..BAG 10 MCG IVCONT (09:18)
[2024-06-17] MEDS: propofoL 1,000 MG/100 ML VIAL 23.58 MG IVCONT (09:35)
--- NOTE | 2024-06-17 09:49 | MHC.CLN ---
F/U PT REMAINS INTUBATED AND SEDATED TOLERATING TF CONTINUE PROMOTE AT MAX GOAL RATE 65ML/HR WITH 30ML PROSOURCE BID WITH 240ML FREE WATER FLUSHES Q 4 HRS PROVIDES 1680KCALS (2509TOTAL KCALS WITH SEDATION; 27 KCALS/KG BASED ON IBW), 127.5G PROTEIN (1.4G/KG), 2749ML TOTAL WATER FROM FORMULA AND FLUSHES (30ML/KG); TF WILL PROMOTE WOUND HEALING CONTINUE TO MONITOR TOLERANCE AND LYTES
[2024-06-17] MEDS: Baclofen 20 MG TABLET PO ×2 (11:23→20:15)
[2024-06-17] MEDS: Piperacillin Sodium/Tazobactam 4.5 GM in 0.9 % Sodium Chloride 100 ML IV ×3 (11:23→21:38)
[2024-06-17] MEDS: Albumin Human 25 % 50 ML 100 ML IV (11:23)
[2024-06-17] MEDS: acetaZOLAMIDE sodium 500 MG VIAL IVPUSH (11:23)
[2024-06-17] MEDS: vancomycin HCL 1,000 MG in 0.9 % Sodium Chloride 250 ML 270 MG IV ×2 (12:26→23:07)
[2024-06-17 12:27] LABS: Glucose, Whole Blood 149 mg/dL (60-115)
[2024-06-17] MEDS: propofoL 1,000 MG/100 ML VIAL 15.72 MG IVCONT (13:55)
[2024-06-17] MEDS: Norepinephrine Bitartrate/D5W 8 MG/250 ML PLAST..BAG 12.27 MG IVCONT (16:29)
[2024-06-17 17:22] LABS: Glucose, Whole Blood 167 mg/dL (60-115)
[2024-06-17] MEDS: Insulin Lispro 100 UNIT/ML 3 ML VIAL SUBCUT (17:52)
[2024-06-17] MEDS: dexmedeTOMIDidine HCL/NS 400 MCG/100 ML INFUS..BTL 15.5 MCG IVCONT (20:11)
[2024-06-17] MEDS: Apixaban 5 MG TABLET PO (20:15)
[2024-06-17 20:51] LABS: Anion Gap 17 (12-20); Blood Urea Nitrogen 18 mg/dL (9-16); Calcium 8.1 mg/dL (8.4-10.2); Carbon Dioxide 28 mmol/L (22-29); Chloride 97 mmol/L (96-108); Creatinine Clr Calc Pharmacy 156.2; Estimated Glomerular Filt Rate > 60; Glucose Random 143 mg/dL (60-115); Magnesium 2.1 mg/dL (1.6-2.6); Phosphorus 3.2 mg/dL (2.7-4.5); Potassium 3.2 mmol/L (3.3-5.1); Sodium 139 mmol/L (135-145)
[2024-06-17] MEDS: Potassium Chloride/H20 40 MEQ/100 ML PIGGYBACK 50 MEQ IV (21:35)
[2024-06-18] VITALS (32 sets, daily range): BP systolic 105–167; BP diastolic 50–81; PULSE 60–66; RESP 10–28; TEMP 34.8–38.3; O2SAT 7–97; BMI 32.7
[2024-06-18 00:13] LABS: Glucose, Whole Blood 148 mg/dL (60-115)
[2024-06-18] MEDS: dexmedeTOMIDidine HCL/NS 400 MCG/100 ML INFUS..BTL 15.5 MCG IVCONT (01:01)
[2024-06-18] MEDS: Piperacillin Sodium/Tazobactam 4.5 GM in 0.9 % Sodium Chloride 100 ML IV ×2 (03:31→11:31)
[2024-06-18] MEDS: Levothyroxine Sodium 100 MCG/5 ML VIAL 70 MCG IVPUSH (05:28)
[2024-06-18 05:31] LABS: VBG Base Excess 7.1 mmol/L; VBG HCO3 31 mmol/L (22-26); VBG pCO2 40 mmHg; VBG pH 7.48 (7.32-7.43); VBG pO2 37 mmHg
[2024-06-18 05:50] LABS: Venous Blood Gas Refer to POC result
[2024-06-18 05:54] LABS: Glucose, Whole Blood 156 mg/dL (60-115)
[2024-06-18 05:55] LABS: MANUAL DIFF FLAG NO
[2024-06-18 05:56] LABS: Basophils Absolute Auto 0.1 X10*3/uL (0.0-0.2); Basophils Percent Auto 0.7 % (0-2); Eosinophils Absolute Auto 0.3 X10*3/uL (0.0-0.4); Eosinophils Percent Auto 3.8 % (0-4); Hematocrit 31.4 % (42.0-52.0); Hemoglobin 10.2 g/dl (14.0-18.0); Imm Gran Abs Auto 0.13 X10*3/uL (0.00-0.03); Imm Gran Pct Auto 1.7 % (0.0-0.4); Lymphocytes Absolute Auto 1.6 X10*3/uL (1.2-4.9); Lymphocytes Percent Auto 20.7 % (20-40); Mean Corpuscular HGB Conc 32.5 g/dl (31.0-36.0); Mean Corpuscular Hemoglobin 28.3 pg (27.0-33.0); Mean Platelet Volume 9.3 fL (9.4-12.4); Monocytes Absolute Auto 0.6 X10*3/uL (0.1-1.2); Monocytes Percent Auto 7.9 % (2-11); Neutrophils Percent Auto 65.2 % (45-73); Platelet Count 305 X10*3/uL (160-400); Red Blood Count 3.61 X10*6/uL (4.60-5.80); Red Cell Distribution Width 17.4 % (11.0-16.0); White Blood Count 7.7 X10*3/uL (4.8-10.8)
[2024-06-18] MEDS: Insulin Lispro 100 UNIT/ML 3 ML VIAL SUBCUT ×2 (06:06→12:04)
[2024-06-18 06:08] LABS: Ammonia 36 umol/L (13-55)
[2024-06-18 06:14] LABS: Anion Gap 13 (12-20); Blood Urea Nitrogen 16 mg/dL (9-16); Calcium 8.1 mg/dL (8.4-10.2); Carbon Dioxide 26 mmol/L (22-29); Chloride 100 mmol/L (96-108); Creatinine Clr Calc Pharmacy 167.6; Estimated Glomerular Filt Rate > 60; Glucose Random 167 mg/dL (60-115); Magnesium 2.2 mg/dL (1.6-2.6); Phosphorus 2.3 mg/dL (2.7-4.5); Potassium 3.4 mmol/L (3.3-5.1); Sodium 136 mmol/L (135-145)
[2024-06-18] MEDS: Acetylcysteine 10 % 400 MG/4 ML VIAL INHALE (07:06)
[2024-06-18] MEDS: Albuterol Sulfate (0.083%) 2.5 MG/3 ML VIAL.NEB INHALE (07:06)
[2024-06-18] MEDS: Apixaban 5 MG TABLET PO (07:58)
[2024-06-18] MEDS: Potassium Phosphate/NS 15 MMOL/250 ML PLAST..BAG 62.5 MMOL IV ×2 (07:58→12:11)
[2024-06-18] MEDS: 0.9 % Sodium Chloride Flush 3 ML SYRINGE IVFLUSH ×3 (07:58→17:14)
[2024-06-18] MEDS: Baclofen 20 MG TABLET PO (07:58)
[2024-06-18] MEDS: Furosemide 40 MG/4 ML VIAL IVPUSH (07:59)
[2024-06-18] MEDS: Chlorhexidine Gluc Oral Rinse 15 ML MOUTHWASH BUCCAL (07:59)
--- NOTE | 2024-06-18 08:27 | P.PNCC_ITS ---
Subjective Subjective Date of Service: 06/18/24 Interval History: no significant overnight events Critical Care Time (minutes): 60 Physical Exam 2 Vital Signs: Vital Signs: Last Vital Signs Temp 100.4 F 06/18/24 08:00 Pulse 60 06/18/24 08:00 Resp 16 06/18/24 08:00 BP 118/59 L 06/18/24 08:00 Pulse Ox 94 06/18/24 08:00 O2 Del Method Mechanical Ventil ation 06/18/24 08:00 O2 Flow Rate 40 06/16/24 15:00 FiO2 40 06/18/24 08:00 Oxygen Flow Rate 5 06/07/24 09:00 BMI result Body Mass Index 32.7 Const: General: cooperative, comfortable, no acute distress, well developed, alert, awake and Physically active Orientation/consciousness: oriented to person HEENT: Head: Yes normal to inspection, Yes normocephalic and Yes atraumatic Eyes: General: appearance normal, both eyes and all related structures Neck: Neck: Yes normal visual inspection, Yes full ROM, Yes no meningeal signs, Yes trachea midline and Yes supple Chest: Chest palpation & inspection: normal inspection of the chest Resp: Other: no appreciable rales, rhonchi, wheezing Effort & Inspection: normal respiratory effort Cardio: Rate: regular rate Rhythm: regular rhythm GI: Inspection: Yes normal to inspection, No Abdominal wall edema and No distended Palpation (GI): Soft to palpation, not firm, nontender, no guarding and not rigid Skin: General skin exam: no rashes or lesions noted Neuro: General: oriented to person and no meningeal signs Extrem: Other: appreciable 1+ pitting edema to bilateral knees General: Yes normal to inspection, Yes full ROM and Yes capillary refill normal Psych: Appearance: grossly normal Objective Data Labs 06/18/24 05:18 06/18/24 05:18 Labs: Laboratory Results - last 24 hr 06/17/24 06/17/24 06/17/24 12:23 17:18 20:11 WBC RBC Hgb Hct MCV MCH MCHC RDW Plt Count MPV Immature Gran % (Auto) Neut % (Auto) Lymph % (Auto) [place] % (Auto) Eos % (Auto) Baso % (Auto) Lymph # (Auto) [place] # (Auto) Eos # (Auto) Baso # (Auto) Abs Immat Gran (auto) Absolute Neuts (auto) Absolute Nucleated RBC Nucleated RBC % (auto) VBG pH VBG pCO2 VBG pO2 VBG HCO3 VBG O2 Saturation VBG Base Excess Sodium 139 Potassium 3.2 L Chloride 97 Carbon Dioxide 28 Anion Gap 17 BUN 18 H Creatinine 0.66 Estim Creat Clear Calc 156.2 Estimated GFR > 60 POC Glucose 149 H 167 H Random Glucose 143 H Calcium 8.1 L D Phosphorus 3.2 Magnesium 2.1 Ammonia 06/18/24 06/18/24 06/18/24 00:06 05:18 05:20 WBC 7.7 RBC 3.61 L Hgb 10.2 L Hct 31.4 L MCV 87.0 MCH 28.3 MCHC 32.5 RDW 17.4 H Plt Count 305 MPV 9.3 L Immature Gran % (Auto) 1.7 H Neut % (Auto) 65.2 Lymph % (Auto) 20.7 [place] % (Auto) 7.9 Eos % (Auto) 3.8 Baso % (Auto) 0.7 Lymph # (Auto) 1.6 [place] # (Auto) 0.6 Eos # (Auto) 0.3 Baso # (Auto) 0.1 Abs Immat Gran (auto) 0.13 H Absolute Neuts (auto) 5.0 Absolute Nucleated RBC 0.000 Nucleated RBC % (auto) 0.0 VBG pH 7.48 H VBG pCO2 40 VBG pO2 37 VBG HCO3 31 H VBG O2 Saturation 60.0 VBG Base Excess 7.1 Sodium 136 Potassium 3.4 Chloride 100 Carbon Dioxide 26 Anion Gap 13 BUN 16 Creatinine 0.61 Estim Creat Clear Calc 167.6 Estimated GFR > 60 POC Glucose 148 H Random Glucose 167 H Calcium 8.1 L Phosphorus 2.3 L Magnesium 2.2 Ammonia 36 06/18/24 05:50 WBC RBC Hgb Hct MCV MCH MCHC RDW Plt Count MPV Immature Gran % (Auto) Neut % (Auto) Lymph % (Auto) [place] % (Auto) Eos % (Auto) Baso % (Auto) Lymph # (Auto) [place] # (Auto) Eos # (Auto) Baso # (Auto) Abs Immat Gran (auto) Absolute Neuts (auto) Absolute Nucleated RBC Nucleated RBC % (auto) VBG pH VBG pCO2 VBG pO2 VBG HCO3 VBG O2 Saturation VBG Base Excess Sodium Potassium Chloride Carbon Dioxide Anion Gap BUN Creatinine Estim Creat Clear Calc Estimated GFR POC Glucose 156 H Random Glucose Calcium Phosphorus Magnesium Ammonia Microbiology Microbiology Results: Microbiology 06/06/24 09:50 Bronchial Washings Fungal Identification - Preliminary Regine albicans 06/08/24 04:35 Sputum - Suctioned Gram Stain - Final 06/08/24 04:35 Sputum - Suctioned Sputum Culture - Final Methicillin Res Staph Aureus 06/06/24 09:50 Bronchial Washings Gram Stain - Final 06/06/24 09:50 Bronchial Washings Routine Culture - Final Corynebacterium species 06/02/24 11:00 Bronchial Washings Gram Stain - Final 06/02/24 11:00 Bronchial Washings Routine Culture - Final Staphylococcus aureus 05/29/24 12:41 Blood - Venous Blood Culture - Final No growth after 5 days. 05/29/24 12:41 Blood - Venous Blood Culture - Final No growth after 5 days. 05/29/24 Unknown Urine Catheterized - [place] Catheter Urine Culture - Final Pseudomonas aeruginosa Providencia rettgeri Progress Note: A&P Assessment and plan (1) Acute hypoxemic respiratory failure: Status: Acute (2) Pneumonia: Status: Acute (3) Cardiac arrest: Status: Acute Plan Patient is a 68 Y M with prior spinal cord injury c/b paraplegia, neurogenic bladder w/ chronic suprapubic catheter c/b recurrent urinary tract infections, colostomy, and sacral decubitus ulcer, paroxysmal atrial fibrillation on apixaban, and hyperthyroidism, [facility] w/ pneumonia, admitted medicine; hospital course c/b cardiac arrest on 06/08; ICU course c/b extubation on 06/11, re-intubation d/t persistent encephalopathy N: intubated, sedated w/ dexmedetomidine gtt, wean as tolerated; encephalopathy, likely toxic-metabolic; MRI 06/17 w/o overt intracranial process CV: hypotension, unclear etiology, norepinephrine gtt, wean as tolerated; of note, patient on home midodrine; cardiac arrest on 06/08 R: intubated in setting of cardiac arrest 06/08, extubated 06/11, re-intubated d/t persistent encephalopathy; wean ventilator as tolerated GI: NG tube, tube feeds : no acute issues; to monitor electrolytes, renal indices closely H: no acute issues; paroxysmal atrial fibrillation on apixaban ID: pneumonia, previously on cefepime, to change to zosyn; vancomycin E: to monitor hypo-/hyper-glycemia; hypothyrodism, on home levothyroxine INT: decubitus ulcer; appreciate wound care recommendations P: no acute issues Quality Stroke Does the patient have a stroke diagnosis?: No VTE Prior VTE?: No VTE Risk Level:: Medical - moderate - high VTE Device Contraindication: N/A - Device Ordered VTE Drug Contraindication: N/A - Med Ordered
[2024-06-18] MEDS: Calcium Chloride 1 GM/10 ML SYRINGE IVPUSH (09:10)
[2024-06-18 11:02] LABS: Vancomycin Trough 15.3 mcg/mL (10.0-20.0)
[2024-06-18] MEDS: vancomycin HCL 1,000 MG in 0.9 % Sodium Chloride 250 ML 270 MG IV (11:30)
[2024-06-18 11:55] LABS: Glucose, Whole Blood 187 mg/dL (60-115)
--- NOTE | 2024-06-18 12:55 | W.MHC.ACPN ---
Advanced Care Planning Note Advanced Care Planning Note Discussed with: family member(s) Time spent (in minutes): 60 Narrative: Moses, Mr. Quinonez's brother, called this morning. I introduced myself and offered updates. Moses wished to discussed next steps in Mr. Quinonez's care. Mosse stated he has discussed Mr. Quinonez with many people who have cared for him over the years. Specifically, Moses asked them if Mr. Merino would ever want interventions such as a tracheostomy, feeding tube, etc. Moses stated that these people have invariably reported that Mr. Quinonez would not want these interventions. Moses stated Mr. Quinonez specifically began to endorse this philosophy when he was no longer able to pivot independently and therefore began to rely on more people for his care. Moses discussed with his brother Gualberto and sister Analia, who all agree that Mr. Quinonez would not want these interventions. Moreover, Moses expressed that he and his siblings want Mr. Quinonez to be comfortable, especially in the event Mr. Quinonez suffers from another aspiration. Given his multiple admissions, including ICU admissions, in the past months, they would prefer minimizing harm and maximizing comfort in the form of hospice care for Mr. Merino as a general philosophy of care going forward. We discussed comfort-focused care, which Moses and his siblings felt was appropriate at this point in time. We discussed that in the event Mr. Quinonez becomes appropriate, he will be his own decision-maker, but will honor the plan set forth by his siblings, who are his healthcare proxys, at this current time. Problems Discussed (1) Acute hypoxemic respiratory failure: (2) Pneumonia: (3) Cardiac arrest:
--- NOTE | 2024-06-18 14:08 | MHC.CM.PN ---
Pt continues on ventilatory support in ICU: to have family meeting w/pt's brother/ HCP Moses and pt's two sisters. D/C plans are dependent on the outcome
[2024-06-18] MEDS: Scopolamine 1.5 MG PATCH.TD.3 EAR-BEHIND (14:48)
[2024-06-19] VITALS: PULSE 60; RESP 19; TEMP 36.2; O2SAT 89
[2024-06-19] MEDS: 0.9 % Sodium Chloride Flush 3 ML SYRINGE IVFLUSH ×4 (00:42→20:45)
[2024-06-19 08:00] VITALS: PULSE 60; RESP 22; O2SAT 93
--- NOTE | 2024-06-19 08:03 | P.PNCC_ITS ---
Subjective Subjective Date of Service: 06/19/24 Interval History: no significant overnight events; no appreciable distress Critical Care Time (minutes): 0 Physical Exam 2 Vital Signs: Vital Signs: Last Vital Signs Temp 97.2 F 06/19/24 00:00 Pulse 60 06/19/24 00:00 Resp 19 06/19/24 00:00 BP 126/62 06/18/24 14:56 Pulse Ox 89 L 06/19/24 00:00 O2 Del Method Nasal Cannula 06/19/24 00:00 O2 Flow Rate 2 06/19/24 00:00 FiO2 40 06/18/24 14:00 Oxygen Flow Rate 5 06/07/24 09:00 BMI result Body Mass Index 32.7 Const: General: cooperative, healthy appearing, comfortable, no acute distress, well developed, alert, awake and Physically active O rientation/consciousness: oriented to person, No oriented to place and No oriented to time HEENT: Head: Yes normal to inspection, Yes normocephalic and Yes atraumatic Eyes: General: appearance normal, both eyes and all related structures Neck: Neck: Yes normal visual inspection, Yes full ROM, Yes no meningeal signs, Yes trachea midline and Yes supple Chest: Chest palpation & inspection: normal inspection of the chest Resp: Other: no appreciable rales, rhonchi, wheezing Effort & Inspection: normal respiratory effort Cardio: Rate: regular rate Rhythm: regular rhythm GI: Other: appreciable ostomy bag w/ soft, brown stool Inspection: Yes normal to inspection, No Abdominal wall edema and No distended Palpation (GI): Soft to palpation, not firm, nontender, no guarding and not rigid Skin: General skin exam: no rashes or lesions noted Neuro: General: oriented to person, No oriented to place, No oriented to time and no meningeal signs Extrem: General: Yes normal to inspection, Yes full ROM, Yes capillary refill normal and Yes no clubbing, cyanosis or edema Psych: Appearance: grossly normal Objective Data Labs 06/18/24 05:18 06/18/24 05:18 Labs: Laboratory Results - last 24 hr 06/18/24 06/18/24 09:51 11:47 POC Glucose 187 H Vancomycin Trough 15.3 Microbiology Microbiology Results: Microbiology 06/06/24 09:50 Bronchial Washings Fungal Identification - Preliminary Regine albicans 06/08/24 04:35 Sputum - Suctioned Gram Stain - Final 06/08/24 04:35 Sputum - Suctioned Sputum Culture - Final Methicillin Res Staph Aureus 06/06/24 09:50 Bronchial Washings Gram Stain - Final 06/06/24 09:50 Bronchial Washings Routine Culture - Final Corynebacterium species 06/02/24 11:00 Bronchial Washings Gram Stain - Final 06/02/24 11:00 Bronchial Washings Routine Culture - Final Staphylococcus aureus 05/29/24 12:41 Blood - Venous Blood Culture - Final No growth after 5 days. 05/29/24 12:41 Blood - Venous Blood Culture - Final No growth after 5 days. 05/29/24 Unknown Urine Catheterized - [place] Catheter Urine Culture - Final Pseudomonas aeruginosa Providencia rettgeri Progress Note: A&P Assessment and plan (1) Acute hypoxemic respiratory failure: Status: Acute (2) Pneumonia: Status: Acute (3) Aspiration, chronic pulmonary: Status: Acute (4) Cardiac arrest: Status: Acute Plan Patient is a 68 Y M with prior spinal cord injury c/b paraplegia, neurogenic bladder w/ chronic suprapubic catheter c/b recurrent urinary tract infections, colostomy, and sacral decubitus ulcer, paroxysmal atrial fibrillation on apixaban, and hyperthyroidism, presenting to the emergency department from intermediate on 05/29 w/ pneumonia, admitted medicine; hospital course c/b cardiac arrest on 06/08; ICU course c/b extubation on 06/11, re-intubation d/t persistent encephalopathy, extubated 06/19, transitioned to comfort-focused care - appears comfortable; continue w/ comfort-focused care process; speech/swallow evaluation; family expressed interest in comfort feeds regardless of speech/swallow evaluation; to resume PO medications if tolerated Quality Stroke Does the patient have a stroke diagnosis?: No VTE Prior VTE?: No VTE Risk Level:: Medical - moderate - high VTE Device Contraindication: N/A - Device Ordered VTE Drug Contraindication: N/A - Med Ordered
--- NOTE | 2024-06-19 09:55 | MHC.CLN ---
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
--- NOTE | 2024-06-19 09:56 | MHC.CM.PN ---
Per family meeting held on 06/18: family would like to transition pt to comfort focused care. Status changed, pt extubated and will transfer to a medical floor. Call placed to pt's senior living director, Jared to inquire on FISHERIES INSPECTOR capabilities at the senior living. Jared will be in to visit shortly and will speak with the CM on pt's return to on FISHERIES INSPECTOR.
--- NOTE | 2024-06-19 11:14 | MHC.SL.SWA ---
Speech Pathologist Impression: Moderate to severe oropharyngeal dysphagia, pt is at high risk for aspiration. Pt made CAMPUS INTERVIEWS INTERN Risk of Aspiration Due to: Lethargy Medically Fragile History of Pneumonia Poor PO Intake Hx of Recent Extubation Weak Cough Weak Voice Dysphasia Diet Status: Comfort focused bedside swallow evaluation. Liquid Consistency and Strategies for Safe Swallow: Liquid Intake Recommendation: Thin, ice chips Liquid Intake Strategies: Solid Food Consistency: Dietary Recommendations: Pureed (NDD1) Oral Medication Intake: NPO Please contact the pharmacy regarding appropriate crushable or liquid drug formulations that are available whenever modified delivery is recommended. Compensatory Strategies and Precautions to be Taken for Safe Swallow: Sitting Upright (90 deg) Liquids from Spoon Rate of Ingestion Change Supervision While Eating and Drinking for Safe Swallow: Total Supervision (1:1) Foods to Avoid: Swallowing Recommended Treatments: Compens. Strategy Educat. Recommendation for Speech: Discharged with Instructions for Home Use Comment: Pt is CAMPUS INTERVIEWS INTERN, no further FISH STRINGER ASSEMBLER intervention appropriate. Frequency/Duration: Date Range for Service Req: Timeline to reassess: Sack Sewer Machine Clinican/Clinical Fellow: No Supervisory Statement: I have reviewed and agree with the student/clinical fellow's documentation: N/A Speech Language Pathologist: Marylin Fox M.S., CCC-FISH STRINGER ASSEMBLER
[2024-06-19 12:01] VITALS: RESP 14
--- NOTE | 2024-06-19 12:58 | MHC.CM.PN ---
Jared, nurse [facility] for [facility], reports they can take patient back [facility], but would need to train staff on morphine/ativan administration. Earliest able to accept back would be 06/25. Bill [phone]
--- NOTE | 2024-06-19 14:56 | PM.EVENT ---
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 Afebrile, oxygenation 93% 68 Y M with prior spinal cord injury c/b paraplegia, neurogenic bladder w/ chronic suprapubic catheter c/b recurrent urinary tract infections, colostomy, and sacral decubitus ulcer, paroxysmal atrial fibrillation on apixaban, and hyperthyroidism, presenting to the emergency department from senior care on 05/29 w/ pneumonia, admitted medicine; hospital course c/b cardiac arrest on 06/08; ICU course c/b extubation on 06/11, re-intubation d/t persistent encephalopathy, extubated 06/19, transitioned to comfort-focused care. Diagnosis Acute hypoxic respiratory failure due to pneumonia bronchial washings grew Staphylococcus aureus, Corynebacterium, Regine and repeat sputum culture grew MRSA Acute UTI with chronic suprapubic catheter was treated with vancomycin, doxycycline and cefepime, urine culture grew Pseudomonas/Providencia Stage III sacral decubitus ulcer present on admission History of paraplegia with neuropathy Paroxysmal atrial fibrillation Hypothyroidism appears comfortable; continue w/ comfort-focused care process; Speech therapy recommended pureed diet with thin liquids with total superficial one-to-one feed family expressed interest in comfort feeds regardless of speech/swallow evaluation; healthcare proxy invoked Time Spent With Patient Time: Total time managing care of this patient today ____ minutes.
[2024-06-19] MEDS: Glycopyrrolate 0.2 MG/ML VIAL IVPUSH ×2 (15:14→20:45)
[2024-06-19 15:35] VITALS: RESP 14
--- NOTE | 2024-06-19 15:41 | HO.WOUND ---
Wound Consult:Follow up 68yr old Male? admitted to [facility] on 05/29/24 - See progress notes and H&P for detailed history.? Wound consult follow up for multiple pressure injuries present on admission.? Patient has had a complex hospital stay see history for details, he has transitioned to Comfort Measures Only Care. Patient is a paraplegic at baseline and wheelchair bound for mobility. Treats at the outpt wound clinic and has previous injury Bilateral Heels, coccyx, and Ischium. Patient is well known to this physician underwriter from previous admissions. The patient is a poor historian at times due to memory baseline but is non-interactive at this time given post procedure. In past consultations patient reported he was routinely strapped into his wheelchair and he believed the wounds to the left foot and right lateral leg are consistent with the straps. 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 Durafiber AG for moisture management Left Heel Etiology: Unstageable Pressure Injury - ?Present on Admission Goals of Treatment: ? Heel protector boots in place - Durafiber AG with ABd pad applied for moisture management Right Heel Etiology: Unstageable Pressure Injury - ?Present on Admission Goals of Treatment: ? Heel protector boots in place - Durafiber AG with ABd pad applied for moisture management Left Dorsal foot Etiology: Stage 3 Pressure Injury - ?Present on Admission Goals of Treatment: ? Durafiber AG with ABd pad applied for moisture management Buttock coccyx and posterior thighs and scrotum shows significant signs of chronic MASD (Moisture Associated Skin Damage). It is unclear where the moisture is originating from question is from penis, anus or leaking from the suprapubic cath site. Buttock posterior thighs, scrotum and bilateral groin - MASD (Moisture Associated Skin Damage) - Various areas of partial thickness tissue loss in patterns of friction and chronic MASD. The pigmentation of maroon, red, light purple is blanchable. Triad to protect from moisture and friction. Pressure injury prevention measures should continue to be employed to protect the skin from further pressure injury development. Direct care team to obtain Specialty Mattress from [employer], continue with Q2hr turns add wedges, and heel protector boots to be continued. Coccyx - Previously documented?Stage 3 Pressure Injury ?POA Goals of Treatment: ? Triad to allow for moist wound healing and to protect from friction and moisture Bilateral Buttock - Stage 3 Pressure Injury ?POA Goals of Treatment: ? Triad to allow for moist wound healing and to protect from friction and moisture All topical treatments will allow for care to maintain healing, dignity and comfort. Dressing adjustments have been made to frequency. Patient should continue on Agility Pulsate support surface bed for optimal treatment and comfort. Recommendations: 1. Turn and Reposition every 2 hours and as needed for patient comfort.? Use pillows or wedges to support off loading positions. Use wedges for off loading. 2. Off Load all bony prominences with use of heel boots.? Apply Preventative foams where needed. ?Heel Protectors in use. 3. Monitor for incontinence and moisture control, use barrier creams when needed for prevention and treatment. Barrier cream in use. 4. Provide adequate and supplemental nutrition.? 5. Order Specialty mattress from [employer] - Pulsate extra long - Not the [place]. 6. When applicable maintain blood glucose levels per Providers order. 7. Coccyx, Buttock, Thigh, scrotum and groin - Off Load Pressure - Cleanse with PH balance spray or wipes, pat dry. ?Apply thin layer of Triad to wound bed - only pat and dab no scrub and rub when soiling occurs. Reapply thin layer PRN after each episode of incontinence. 8. Right Lateral Leg, Left cifuentes , Left Dorsal Foot and Bilateral Heel - Cleanse with NS moist gauze, Apply barrier cream to periwound - apply Durafiber AG to wound bed cover with ABD pag and gauze wrap. Change every 2-3 days and PRN. Re-consult wound care Nurse for wound deterioration or wound changes.
[2024-06-19 23:31] VITALS: RESP 14
--- NOTE | 2024-06-19 23:45 | PC.NURSE ---
Took over patient at 7pm. 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 Pt has been NPO on aspiration precautions up to this point. A tray was sent by the kitchen around 8pm, Tech was uncomfortable attempting to feed patient, so we entered the room together. I assessed patient and attempted mouth care, pt will not swallow and tried to turn his head away. I suctioned secretions that were in immediate throat and we attempted to give a pea sized bite of pureed pears to patient. He would not close his mouth or attempt to swallow, so we then cleaned his mouth out so he would not choke and aspirate. Pt is not a candidate for feeding as he is an aspiration risk and lacks the ability to swallow.
[2024-06-20] MEDS: Glycopyrrolate 0.2 MG/ML VIAL IVPUSH (04:43)
[2024-06-20 06:00] VITALS: BMI 32.7
[2024-06-20 07:48] VITALS: RESP 14
[2024-06-20] MEDS: 0.9 % Sodium Chloride Flush 3 ML SYRINGE IVFLUSH ×2 (08:47→16:14)
[2024-06-20 12:42] VITALS: BP 130/64; PULSE 60; RESP 20; TEMP 36.1; O2SAT 91
--- NOTE | 2024-06-20 13:29 | HO.PM.IMPN ---
Subjective Subjective Date of Service: 06/20/24 Interval History: No acute events overnight Resting comfortably denies pain, unable to swallow applesauce. Review of Systems Unable to obtain due to mental status Physical Exam Vital Signs: Vital Signs: Last Vital Signs Temp 97.0 F 06/20/24 12:42 Pulse 60 06/20/24 12:42 Resp 20 06/20/24 12:42 BP 130/64 06/20/24 12:42 Pulse Ox 91 L 06/20/24 12:42 O2 Del Method Nasal Cannula 06/20/24 12:42 O2 Flow Rate 2 06/20/24 12:42 FiO2 40 06/18/24 14:00 Oxygen Flow Rate 5 06/07/24 09:00 BMI result Body Mass Index 32.7 Const: Other: General resting comfortably in no acute distress. Gurgling sound in throat Neck no JVD. CVS regular rate rhythm, Respiratory lungs no respiratory distress, no crackles or wheeze Gastrointestinal abdomen soft, non tender, bowel sounds audible, ostomy bag in place Neuro not oriented to place or time, oriented to person Skin no rash Objective Data Active Medications Artificial Tears (Artificial Tears 15 Ml Drops) 2 drop EYE-BOTH Q4H PRN PRN Reason: Dry Eyes Glycopyrrolate (Glycopyrrolate 0.2 Mg/Ml Vial) 0.2 mg IVPUSH Q6H PRN PRN Reason: Respiratory secretions Last Admin: 06/20/24 04:43 Dose: 0.2 mg Documented By: JAMES Haloperidol Lactate (Haloperidol Lactate 5 Mg/Ml Vial) 0.5 mg IVPUSH Q4H PRN PRN Reason: Delirium Hydromorphone HCl (Hydromorphone Hcl 1 Mg/Ml Syringe) 1 mg IVPUSH Q15M PRN; Protocol PRN Reason: Dyspnea Lorazepam (Lorazepam 2 Mg/Ml Vial) 1 mg IVPUSH Q15M PRN PRN Reason: Anxiety Ondansetron HCl (Ondansetron Hcl 4 Mg/2 Ml Vial) 4 mg IVPUSH Q4H PRN PRN Reason: Nausea and Vomiting Scopolamine (Scopolamine 1.5 Mg Patch.Td.3) 1.5 mg EAR-BEHIND Q72H SACHIN Last Admin: 06/18/24 14:48 Dose: 1.5 mg Documented By: INGA Sodium Chloride (0.9 % Sodium Chloride Flush 3 Ml Syringe) 3 ml IVFLUSH QSHIFT [facility] Last Admin: 06/20/24 08:47 Dose: 3 ml Documented By: CARLOTA Labs 06/18/24 05:18 06/18/24 05:18 Assessment and Plan (1) Aspiration, chronic pulmonary: Status: Acute (2) Cardiac arrest: Status: Acute (3) Acute hypoxemic respiratory failure: Status: Acute Plan 68 Y M with prior spinal cord injury c/b paraplegia, neurogenic bladder w/ chronic suprapubic catheter c/b recurrent urinary tract infections, colostomy, and sacral decubitus ulcer, paroxysmal atrial fibrillation on apixaban, and hyperthyroidism, presenting to the emergency department from correction on 05/29 w/ acute hypoxic respiratory failure due to pneumonia treated with IV antibiotics, underwent bronchoscopy with clearance of mucus on 05/24 and again on June 06, hospital course c/b cardiac arrest on 06/08; ICU course c/b extubation on 06/11, re-intubation d/t persistent encephalopathy, extubated 06/19, transitioned to comfort-focused care and transferred to medical floor. Diagnosis Acute hypoxic respiratory failure due to pneumonia bronchial washings grew Staphylococcus aureus, Corynebacterium, Regine and repeat sputum culture grew MRSA Acute UTI with chronic suprapubic catheter was treated with vancomycin, doxycycline and cefepime, urine culture grew Pseudomonas/Providencia Stage III sacral decubitus ulcer present on admission History of paraplegia with neuropathy Paroxysmal atrial fibrillation Hypothyroidism Pericardial effusion on CT, echo showed small effusion unchanged since 12/23/2023 appears comfortable; continue w/ comfort-focused care process; On scopolamine patch IV Dilaudid 1 mg Q 15 minute IV lorazepam 1 mg 15 minutes as needed IV Haldol 0.5 mg q.4 hours as needed Glycopyrrolate 0.2 mg IV push q.6 hours as needed Artificial tears Speech therapy recommended pureed diet with thin liquids with total superficial one-to-one feed Call patient's brother Moses at [phone] and updated him about patient's current condition Will reconsult speech therapy due to difficulty swallowing liquids Quality Stroke Does the patient have a stroke diagnosis?: No VTE Prior VTE?: No VTE Risk Level:: Medical - moderate - high VTE Device Contraindication: N/A - Device Ordered VTE Drug Contraindication: N/A - Med Ordered
[2024-06-20 16:00] VITALS: RESP 18
[2024-06-20 21:21] VITALS: RESP 18
[2024-06-20 23:38] VITALS: RESP 14
[2024-06-21] MEDS: Glycopyrrolate 0.2 MG/ML VIAL IVPUSH ×3 (00:04→21:20)
[2024-06-21] MEDS: 0.9 % Sodium Chloride Flush 3 ML SYRINGE IVFLUSH ×3 (00:04→15:24)
[2024-06-21 03:17] VITALS: RESP 14
[2024-06-21 07:42] VITALS: RESP 16
[2024-06-21 08:45] VITALS: O2SAT 83
[2024-06-21 09:20] VITALS: BP 136/75; PULSE 60; RESP 12; TEMP 36.2
--- NOTE | 2024-06-21 09:36 | MHC.CLN ---
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 DIET CHANGED TO PUREE. SWALLOWING DIFFICULTY NOTED AND POOR PO. WILL FOLLOW WITH TEAM AND PROVIDE SUPPORT NEEDED. PRIMARY GOAL IS COMFORT.
--- NOTE | 2024-06-21 10:54 | HO.PM.IMPN ---
Subjective Subjective Date of Service: 06/21/24 Interval History: Awake, in no respiratory distress, unable to tolerate food due to coughing and aspirating. Seen by speech therapy they recommend to continue moistened pureed and thin liquid diet. Physical Exam Vital Signs: Vital Signs: Last Vital Signs Temp 97.1 F 06/21/24 09:20 Pulse 60 06/21/24 09:20 Resp 12 06/21/24 09:20 BP 136/75 06/21/24 09:20 Pulse Ox 83 L 06/21/24 08:45 O2 Del Method Nasal Cannula 06/21/24 08:45 O2 Flow Rate 2 06/21/24 08:45 FiO2 40 06/18/24 14:00 Oxygen Flow Rate 5 06/07/24 09:00 BMI result Body Mass Index 32.7 Const: Other: General resting comfortably in no acute distress. Gurgling sound in throat Neck no JVD. CVS regular rate rhythm, Respiratory lungs no respiratory distress, no crackles or wheeze Gastrointestinal abdomen soft, non tender, bowel sounds audible, ostomy bag in place Neuro not oriented to place or time, oriented to person Skin no rash Objective Data Active Medications Artificial Tears (Artificial Tears 15 Ml Drops) 2 drop EYE-BOTH Q4H PRN PRN Reason: Dry Eyes Glycopyrrolate (Glycopyrrolate 0.2 Mg/Ml Vial) 0.2 mg IVPUSH Q6H PRN PRN Reason: Respiratory secretions Last Admin: 06/21/24 00:04 Dose: 0.2 mg Documented By: JAMES Haloperidol Lactate (Haloperidol Lactate 5 Mg/Ml Vial) 0.5 mg IVPUSH Q4H PRN PRN Reason: Delirium Hydromorphone HCl (Hydromorphone Hcl 1 Mg/Ml Syringe) 1 mg IVPUSH Q15M PRN; Protocol PRN Reason: Dyspnea Lorazepam (Lorazepam 2 Mg/Ml Vial) 1 mg IVPUSH Q15M PRN PRN Reason: Anxiety Ondansetron HCl (Ondansetron Hcl 4 Mg/2 Ml Vial) 4 mg IVPUSH Q4H PRN PRN Reason: Nausea and Vomiting Scopolamine (Scopolamine 1.5 Mg Patch.Td.3) 1.5 mg EAR-BEHIND Q72H SACHIN Last Admin: 06/18/24 14:48 Dose: 1.5 mg Documented By: INGA Sodium Chloride (0.9 % Sodium Chloride Flush 3 Ml Syringe) 3 ml IVFLUSH QSHIFT [facility] Last Admin: 06/21/24 08:37 Dose: 3 ml Documented By: CARLOTA Labs 06/18/24 05:18 06/18/24 05:18 Assessment and Plan (1) Aspiration, chronic pulmonary: Status: Acute (2) Cardiac arrest: Status: Acute (3) Acute hypoxemic respiratory failure: Status: Acute Plan 68 Y M with prior spinal cord injury c/b paraplegia, neurogenic bladder w/ chronic suprapubic catheter c/b recurrent urinary tract infections, colostomy, and sacral decubitus ulcer, paroxysmal atrial fibrillation on apixaban, and hyperthyroidism, presenting to the emergency department from skilled nursing on 05/29 w/ acute hypoxic respiratory failure due to pneumonia treated with IV antibiotics, underwent bronchoscopy with clearance of mucus on 05/24 and again on June 06, hospital course c/b cardiac arrest on 06/08; ICU course c/b extubation on 06/11, re-intubation d/t persistent encephalopathy, extubated 06/19, transitioned to comfort-focused care and transferred to medical floor. Diagnosis Acute hypoxic respiratory failure due to pneumonia bronchial washings grew Staphylococcus aureus, Corynebacterium, Regine and repeat sputum culture grew MRSA Acute UTI with chronic suprapubic catheter was treated with vancomycin, doxycycline and cefepime, urine culture grew Pseudomonas/Providencia Stage III sacral decubitus ulcer present on admission History of paraplegia with neuropathy Paroxysmal atrial fibrillation Hypothyroidism Pericardial effusion on CT, echo showed small effusion unchanged since 12/23/2023 appears comfortable; continue w/ comfort-focused care process; On scopolamine patch IV Dilaudid 1 mg Q 15 minute IV lorazepam 1 mg 15 minutes as needed IV Haldol 0.5 mg q.4 hours as needed Glycopyrrolate 0.2 mg IV push q.6 hours as needed Artificial tears Oxygen for comfort Speech therapy recommended pureed diet with thin liquids with total superficial one-to-one feed , they recommend to place food on tip of tongue just behind teeth and to use moistened pureed diet. Call patient's brother Moses at [phone] and updated him about patient's current condition Quality Stroke Does the patient have a stroke diagnosis?: No VTE Prior VTE?: No VTE Risk Level:: Medical - moderate - high VTE Device Contraindication: N/A - Device Ordered VTE Drug Contraindication: N/A - Med Ordered
--- NOTE | 2024-06-21 13:02 | MHC.SL.SWA ---
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 Pt at high risk for aspiration, comfort focused recc include purees, thins, ice chips by tsp presentation. Discussed w/ MD & RN: Patient is at high aspiration risk, with weak cough and compromised airway protection. Patient with cough intermittently throughout PO intake, patient became quickly fatigued and exhibited more symptoms with intake of thickened liquids. Improved tolerance of smaller portions- Liquids/purees by 1/2 teaspoon at a time, placed anteriorly in patient's oral cavity. Allow ample time for dry swallowing between each bite/sip. Other precautions include: optimal positioning upright at 90 degrees, moisten oral cavity with oral moisturizer or moistened swabs for comfort, provide frequent oral care (before first meal and after each subsequent meal), ensure patient is awake and alert for presentation of PO. Monitor patient closely and discontinue feeding if patient becomes lethargic/fatigued or exhibits any difficulties or change in respiration. 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 Compensatory Strategies and Precautions to be Taken for Safe Swallow: Sitting Upright (90 deg) Double Swallow No Straw Liquids from Spoon Small Bites and Sips Rate of Ingestion Change Oral Check Avoid Specific Foods Supervision While Eating and Drinking for Safe Swallow: Total Assistance (1:1) Foods to Avoid: [place] thick or congealed purees; mixed consistencies Swallowing Recommended Treatments: Compens. Strategy Educat. 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 Frequency/Duration: Date Range for Service Req: Timeline to reassess: Investigation Clerk Clinican/Clinical Fellow: No Supervisory Statement: I have reviewed and agree with the student/clinical fellow's documentation: N/A Speech Language Pathologist: Irma Carranza M.A., CCC-TECHNOLOGY ADOPTION MANAGER
[2024-06-21] MEDS: Scopolamine 1.5 MG PATCH.TD.3 EAR-BEHIND (14:03)
--- NOTE | 2024-06-21 15:16 | MHC.CM.PN ---
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
[2024-06-21 16:00] VITALS: RESP 14
[2024-06-21] MEDS: HYDROmorphone HCl 1 MG/ML SYRINGE IVPUSH (16:06)
--- NOTE | 2024-06-21 18:04 | PC.NURSE ---
Family at bedside demanding this RN to give water and pain medications to patient, this RN spoke with pt and pt stated he did not want medications or water at this time. Spoke with Moses HCP on phone, talked in detail that patient is intermittently refusing to have PO intake and IV pain medications. Educated HCP that this RN cannot give medication, food, and or water against patients wishes, as pt is alert and oriented and able to makes needs known. HCP stated he understands. Dump Operator Dotty Hanley was able to come to bedside and speak with family.
[2024-06-21 19:14] VITALS: RESP 20
[2024-06-22] MEDS: 0.9 % Sodium Chloride Flush 3 ML SYRINGE IVFLUSH
[2024-06-22 04:00] VITALS: RESP 22
[2024-06-22] MEDS: Glycopyrrolate 0.2 MG/ML VIAL IVPUSH (04:32)
[2024-06-22 08:00] VITALS: RESP 22
--- NOTE | 2024-06-22 11:20 | HO.PM.IMPN ---
Subjective Subjective Date of Service: 06/22/24 Interval History: Patient awake in no distress No acute events overnight Poor by mouth intake, one-to-one feeds, ostomy with loose yellow stool Review of Systems Unable to obtain detailed review of system due to mental status Physical Exam Vital Signs: Vital Signs: Last Vital Signs Temp 97.1 F 06/21/24 09:20 Pulse 60 06/21/24 09:20 Resp 22 H 06/22/24 08:00 BP 136/75 06/21/24 09:20 Pulse Ox 83 L 06/21/24 08:45 O2 Del Method Nasal Cannula 06/21/24 08:45 O2 Flow Rate 2 06/21/24 08:45 FiO2 40 06/18/24 14:00 Oxygen Flow Rate 5 06/07/24 09:00 BMI result Body Mass Index 32.7 Const: Other: General resting comfortably in no acute distress. Gurgling sound in throat Neck no JVD. CVS regular rate rhythm, Respiratory lungs coarse breath sounds Gastrointestinal abdomen soft, non tender, bowel sounds audible, ostomy in place Neuro not oriented to place or time, oriented to person Skin no rash Objective Data Active Medications Artificial Tears (Artificial Tears 15 Ml Drops) 2 drop EYE-BOTH Q4H PRN PRN Reason: Dry Eyes Glycopyrrolate (Glycopyrrolate 0.2 Mg/Ml Vial) 0.2 mg IVPUSH Q6H PRN PRN Reason: Respiratory secretions Last Admin: 06/22/24 04:32 Dose: 0.2 mg Documented By: TESSA Haloperidol Lactate (Haloperidol Lactate 5 Mg/Ml Vial) 0.5 mg IVPUSH Q4H PRN PRN Reason: Delirium Hydromorphone HCl (Hydromorphone Hcl 1 Mg/Ml Syringe) 1 mg IVPUSH Q15M PRN; Protocol PRN Reason: Dyspnea Last Admin: 06/21/24 16:06 Dose: 1 mg Documented By: HUGH Lorazepam (Lorazepam 2 Mg/Ml Vial) 1 mg IVPUSH Q15M PRN PRN Reason: Anxiety Ondansetron HCl (Ondansetron Hcl 4 Mg/2 Ml Vial) 4 mg IVPUSH Q4H PRN PRN Reason: Nausea and Vomiting Scopolamine (Scopolamine 1.5 Mg Patch.Td.3) 1.5 mg EAR-BEHIND Q72H SACHIN Last Admin: 06/21/24 14:03 Dose: 1.5 mg Documented By: CARLOTA Sodium Chloride (0.9 % Sodium Chloride Flush 3 Ml Syringe) 3 ml IVFLUSH QSHIFT [facility] Last Admin: 06/22/24 00:00 Dose: 3 ml Documented By: TUMASY Labs 06/18/24 05:18 06/18/24 05:18 Assessment and Plan (1) Aspiration, chronic pulmonary: Status: Acute (2) Acute hypoxemic respiratory failure: Status: Acute Plan 68 Y M with prior spinal cord injury c/b paraplegia, neurogenic bladder w/ chronic suprapubic catheter c/b recurrent urinary tract infections, colostomy, and sacral decubitus ulcer, paroxysmal atrial fibrillation on apixaban, and hyperthyroidism, presenting to the emergency department from senior living on 05/29 w/ acute hypoxic respiratory failure due to pneumonia treated with IV antibiotics, underwent bronchoscopy with clearance of mucus on 05/24 and again on June 06, hospital course c/b cardiac arrest on 06/08; ICU course c/b extubation on 06/11, re-intubation d/t persistent encephalopathy, extubated 06/19, transitioned to comfort-focused care and transferred to medical floor. Diagnosis Acute hypoxic respiratory failure due to pneumonia bronchial washings grew Staphylococcus aureus, Corynebacterium, Regine and repeat sputum culture grew MRSA Acute UTI with chronic suprapubic catheter was treated with vancomycin, doxycycline and cefepime, urine culture grew Pseudomonas/Providencia Stage III sacral decubitus ulcer present on admission History of paraplegia with neuropathy Paroxysmal atrial fibrillation Hypothyroidism Pericardial effusion on CT, echo showed small effusion unchanged since 12/23/2023 appears comfortable; continue w/ comfort-focused care process; On scopolamine patch IV Dilaudid 1 mg Q 15 minute IV lorazepam 1 mg 15 minutes as needed IV Haldol 0.5 mg q.4 hours as needed Glycopyrrolate 0.2 mg IV push q.6 hours as needed Artificial tears Oxygen for comfort Speech therapy recommended pureed diet with thin liquids with total superficial one-to-one feed , recommend to place food on tip of tongue just behind teeth and to use moistened pureed diet. Call patient's brother Moses at [phone] and updated him about patient's current condition Quality Stroke Does the patient have a stroke diagnosis?: No VTE Prior VTE?: No VTE Risk Level:: Medical - moderate - high VTE Device Contraindication: N/A - Device Ordered VTE Drug Contraindication: N/A - Med Ordered
--- NOTE | 2024-06-22 15:02 | P.DN_ITS ---
Discharge Sum: Prov Provider Primary care physician: Yulia Mckeon MD Consults: 06/05/24 02:40 Consult to Wound Care Routine Reason for consultation: multiple open wounds to bilateral buttocks and coocyx,bilat heels&calf Discharge Sum: Diag Contributing Factors (1) Aspiration, chronic pulmonary: (2) Acute hypoxemic respiratory failure: Discharge Sum: Summary Date and Time Date of admission: 05/29/24 15:29 Date of : 06/22/24 Time of : 02:50 Summary Details: 68 Y M with prior spinal cord injury with paraplegia, neurogenic bladder w/ chronic suprapubic catheter , history of recurrent urinary tract infections, colostomy, and sacral decubitus ulcer, paroxysmal atrial fibrillation on apixaban, and hyperthyroidism, presented to the emergency department from senior living on 05/29 w/ acute hypoxic respiratory failure due to pneumonia treated with IV antibiotics, underwent bronchoscopy with clearance of mucus on 06/02 and again on June 06, hospital course complicated by cardiac arrest on 06/08 therefore transferred to ICU where patient was intubated treated with broad- spectrum antibiotics, extubation on 06/11, re-intubation d/t persistent encephalopathy, extubated 06/19, transitioned to comfort-focused care and transferred to medical floor where patient was treated with IV morphine, IV Ativan as needed Haldol and scopolamine , Patient peacefully at 14:50. Patient noted to have no pulse, no respirations, pupils dilated and fixed Notified Family at bedside. Cause of : Acute hypoxic respiratory failure due to pneumonia Acute UTI with chronic suprapubic catheter Stage III sacral decubitus ulcer present on admission History of paraplegia with neuropathy Paroxysmal atrial fibrillation Hypothyroidism Small Pericardial effusion Additional Data Attending physician: Marisabel Garcia MD
--- NOTE | 2024-06-23 13:07 | MHC.CM.PN ---
SERVICE NET RNOB, PRESENTED REQUESTING THE DOCUMENTATION FOR DDS REQUIRED DOCUMENTS PROVIDED AND HE WILL PASS THEM ALONG
== END 2024-06-22 16:39 | disposition expired | DRG 163 ==
LOC: HO.ED 14:24 → HO.EDOVER 16:06 → HO.S3 17:57 → HO.EDOVER 06-08 04:47 → HO.ICU 06-08 04:54 → HO.S3 06-19 08:53
PROVIDERS: Hospitalist; Internal Medicine; Internal Medicine Critical Care Medicine; Internal Medicine Pulmonary Disease; Nurse Practitioner Family; Physician Assistant; Physician Assistant Medical; Registered Nurse Community Health; Admitting Provider Student in an Organized Health Care Education/Training Program; Emergency Provider Emergency Medicine; PCP Family Medicine; Visit Provider Hospitalist
PROC: 0BJ08ZZ Inspection of Tracheobronchial Tree, Via Natural or Artificial Opening Endoscopic (ICD-10-PCS; CPT 31622; principal; 2024-06-02 10:00)
DX: J18.9 Pneumonia, unspecified organism (principal); G82.54 Quadriplegia, C5-C7 incomplete; L89.153 Pressure ulcer of sacral region, stage 3; J96.01 Acute respiratory failure with hypoxia; G92.8 Other toxic encephalopathy; N17.0 Acute kidney failure with tubular necrosis; I26.99 Other pulmonary embolism without acute cor pulmonale; T83.510A Infection and inflammatory reaction due to cystostomy catheter, initial encounter; N39.0 Urinary tract infection, site not specified; J98.11 Atelectasis; J98.19 Other pulmonary collapse; R04.89 Hemorrhage from other sites in respiratory passages; E03.9 Hypothyroidism, unspecified; Y73.8 Miscellaneous gastroenterology and urology devices associated with adverse incidents, not elsewhere classified; I48.0 Paroxysmal atrial fibrillation; N31.9 Neuromuscular dysfunction of bladder, unspecified; G89.4 Chronic pain syndrome; Z93.3 Colostomy status; B96.5 Pseudomonas (aeruginosa) (mallei) (pseudomallei) as the cause of diseases classified elsewhere; Z95.0 Presence of cardiac pacemaker; I46.9 Cardiac arrest, cause unspecified; D64.9 Anemia, unspecified; B95.61 Methicillin susceptible Staphylococcus aureus infection as the cause of diseases classified elsewhere; Z51.5 Encounter for palliative care; I95.9 Hypotension, unspecified; G62.9 Polyneuropathy, unspecified; R57.0 Cardiogenic shock; R31.9 Hematuria, unspecified; S14.155S Other incomplete lesion at C5 level of cervical spinal cord, sequela; V49.9XXS Car occupant (driver) (passenger) injured in unspecified traffic accident, sequela; Z87.440 Personal history of urinary (tract) infections; Z99.3 Dependence on wheelchair; Z79.01 Long term (current) use of anticoagulants; Z79.890 Hormone replacement therapy; Z79.899 Other long term (current) drug therapy
CPT/HCPCS: 0241U; 36410; 36415; 70551; 71045; 71250; 71275; 80048; 80053; 80202; 81001; 82040; 82140; 82565; 82803; 82947; 83605; 83690; 83735; 83880; 84100; 84443; 84484; 85025; 85027; 85379; 85610; 87040; 87070; 87077; 87086; 87088; 87102; 87106; 87186; 87205; 87633; 88112; 88305; 92526; 92610; 93005; 93308; 94002; 94003; 94640; 94799; 99285; C1751; C1758; J0171; J0295; J0456; J0613; J0651; J0692; J0696; J0736; J1120; J1171; J1596; J1642; J1650; J1940; J2003; J2470; J2543; J2704; J2919; J3010; J3370; J3371; J3475; J3480; P9047; Q9957; Q9967

== ENCOUNTER → 2024-05-29 12:19 | Outpatient (BNV) | payer MEDICARE, MEDICAID, SELFPAY | PROVIDERS: Admitting Provider Student in an Organized Health Care Education/Training Program; Emergency Provider Emergency Medicine; PCP Family Medicine; Visit Provider Internal Medicine Cardiovascular Disease | DX: R06.02 Shortness of breath (principal) | CPT/HCPCS: 93010 ==

== ENCOUNTER 2024-05-29 15:29 | Outpatient (BNV) | payer MEDICARE, MEDICAID, SELFPAY | END 2024-06-12 02:51 | PROVIDERS: Admitting Provider Student in an Organized Health Care Education/Training Program; Emergency Provider Emergency Medicine; PCP Family Medicine; Visit Provider Specialist | DX: J96.01 Acute respiratory failure with hypoxia (principal) | CPT/HCPCS: 71045 ==

== ENCOUNTER 2024-05-29 15:29 | Outpatient (BNV) | payer MEDICARE, MEDICAID, SELFPAY | END 2024-05-30 13:30 | PROVIDERS: Admitting Provider Student in an Organized Health Care Education/Training Program; Emergency Provider Emergency Medicine; PCP Family Medicine; Visit Provider Internal Medicine Cardiovascular Disease | DX: I31.39 Other pericardial effusion (noninflammatory) (principal) | CPT/HCPCS: 93308 ==

== ENCOUNTER 2024-05-29 15:29 | Outpatient (BNV) | payer MEDICARE, MEDICAID, SELFPAY | END 2024-06-14 12:20 | PROVIDERS: Admitting Provider Student in an Organized Health Care Education/Training Program; Emergency Provider Emergency Medicine; PCP Family Medicine; Visit Provider Radiology Diagnostic Radiology | DX: I46.9 Cardiac arrest, cause unspecified (principal) | CPT/HCPCS: 70551 ==

== ENCOUNTER 2024-05-29 15:29 | Outpatient (BNV) | payer MEDICARE, MEDICAID, SELFPAY | END 2024-06-10 08:40 | PROVIDERS: Admitting Provider Student in an Organized Health Care Education/Training Program; Emergency Provider Emergency Medicine; PCP Family Medicine; Visit Provider Radiology Diagnostic Radiology | DX: J96.01 Acute respiratory failure with hypoxia (principal) | CPT/HCPCS: 71045 ==

== ENCOUNTER 2024-05-29 15:29 | Outpatient (BNV) | payer MEDICARE, MEDICAID, SELFPAY | END 2024-06-05 11:57 | PROVIDERS: Admitting Provider Student in an Organized Health Care Education/Training Program; Emergency Provider Emergency Medicine; PCP Family Medicine; Visit Provider Radiology Diagnostic Radiology | DX: J96.01 Acute respiratory failure with hypoxia (principal) | CPT/HCPCS: 71045 ==

== ENCOUNTER 2024-05-29 15:29 | Outpatient (BNV) | payer MEDICARE, MEDICAID, SELFPAY | END 2024-06-08 05:55 | PROVIDERS: Admitting Provider Student in an Organized Health Care Education/Training Program; Emergency Provider Emergency Medicine; PCP Family Medicine; Visit Provider Radiology Diagnostic Radiology | DX: J96.01 Acute respiratory failure with hypoxia (principal) | CPT/HCPCS: 71045; 71275 ==

== ENCOUNTER 2024-05-29 15:29 | Outpatient (BNV) | payer MEDICARE, MEDICAID, SELFPAY | END 2024-05-30 11:26 | PROVIDERS: Admitting Provider Student in an Organized Health Care Education/Training Program; Emergency Provider Emergency Medicine; PCP Family Medicine; Visit Provider Radiology Diagnostic Radiology | DX: R09.02 Hypoxemia (principal) | CPT/HCPCS: 71250 ==

== ENCOUNTER 2024-05-29 15:29 | Outpatient (BNV) | payer MEDICARE, MEDICAID, SELFPAY | END 2024-06-11 09:40 | PROVIDERS: Admitting Provider Student in an Organized Health Care Education/Training Program; Emergency Provider Emergency Medicine; PCP Family Medicine; Visit Provider Radiology Diagnostic Radiology | DX: J96.01 Acute respiratory failure with hypoxia (principal) | CPT/HCPCS: 71045 ==

== ENCOUNTER → 2024-05-29 15:29 | Outpatient (BNV) | payer MEDICARE, MEDICAID, SELFPAY | PROVIDERS: Admitting Provider Student in an Organized Health Care Education/Training Program; Emergency Provider Emergency Medicine; PCP Family Medicine; Visit Provider Physician Assistant Medical | DX: J96.01 Acute respiratory failure with hypoxia (principal); J18.9 Pneumonia, unspecified organism; N39.0 Urinary tract infection, site not specified | CPT/HCPCS: 99232; 99233 ==

== ENCOUNTER → 2024-05-29 15:29 | Outpatient (BNV) | payer MEDICARE, MEDICAID, SELFPAY | PROVIDERS: Admitting Provider Student in an Organized Health Care Education/Training Program; Emergency Provider Emergency Medicine; PCP Family Medicine; Visit Provider Physician Assistant Medical | DX: I46.9 Cardiac arrest, cause unspecified (principal); N17.9 Acute kidney failure, unspecified; N39.0 Urinary tract infection, site not specified; M86.48 Chronic osteomyelitis with draining sinus, other site | CPT/HCPCS: 36556; 99233; 99291 ==

== ENCOUNTER → 2024-05-29 15:29 | Outpatient (BNV) | payer MEDICARE, MEDICAID, SELFPAY | PROVIDERS: Admitting Provider Student in an Organized Health Care Education/Training Program; Emergency Provider Emergency Medicine; PCP Family Medicine; Visit Provider Internal Medicine | DX: N39.0 Urinary tract infection, site not specified (principal); J18.9 Pneumonia, unspecified organism; R09.02 Hypoxemia | CPT/HCPCS: 99222 ==

== ENCOUNTER → 2024-05-29 15:29 | Outpatient (BNV) | payer MEDICARE, MEDICAID, SELFPAY | PROVIDERS: Admitting Provider Student in an Organized Health Care Education/Training Program; Emergency Provider Emergency Medicine; PCP Family Medicine; Visit Provider Internal Medicine Pulmonary Disease | DX: J98.11 Atelectasis (principal); J18.9 Pneumonia, unspecified organism | CPT/HCPCS: 99222; 99232 ==

== ENCOUNTER → 2024-05-29 15:29 | Outpatient (BNV) | payer MEDICARE, MEDICAID, SELFPAY | PROVIDERS: Admitting Provider Student in an Organized Health Care Education/Training Program; Emergency Provider Emergency Medicine; PCP Family Medicine; Visit Provider Surgery | DX: J96.01 Acute respiratory failure with hypoxia (principal); J98.11 Atelectasis; T17.908A Unspecified foreign body in respiratory tract, part unspecified causing other injury, initial encounter | CPT/HCPCS: 99223 ==